=== PATIENT | female | born 1950 | race African-American/Black ===

== ENCOUNTER 2019-06-24 07:55 | Inpatient (IN) | payer MEDICARE, OTHER ==
[2019-06-24] MEDS ORDERED: SODIUM CHLORIDE 0.9% 500 ML 500 ML IV ONE (09:21)
[2019-06-24] MEDS ORDERED: ASPIRIN 325 MG TAB ONE (09:27)
[2019-06-24] MEDS ORDERED: fentaNYL (PF) 50 MCG/ML 2 ML AMP ONE (09:29)
[2019-06-24] MEDS ORDERED: fentaNYL (PF) 50 MCG/ML 2 ML AMP IVP ONE (09:34)
[2019-06-24] MEDS ORDERED: ASPIRIN 325 MG TAB PO ONE (09:34)
[2019-06-24] MEDS ORDERED: MIDAZOLAM 2 MG/2 ML VIAL IVP ONE (09:35)
[2019-06-24] MEDS: LIDOCAINE 1% INJ 10MG/ML (20 ML MDV) SQ ONE ×2 (09:36→09:46)
[2019-06-24] MEDS ORDERED: IOPAMIDOL-370 125ML BTL INJ ONE (10:00)
[2019-06-24] MEDS ORDERED: RX INFO: IV CONTRAST WAS GIVEN 1 EACH MISC MISCELLANE PRN (10:14)
[2019-06-24] MEDS ORDERED: SODIUM CHLORIDE 0.9% 1,000 ML IV SCH (10:15)
--- NOTE | 2019-06-24 11:23 | CC ---
CARDIAC CATHETERIZATION REPORT Mrs. Marquez is a 69-year-old female with known history of paroxysmal fibrillation who presents to [facility] [place] with left shoulder and arm discomfort that has some arthritic pattern. She had mild troponin elevation, a new T-wave inversion in the anterior leads. In view of that, recommendation was made regarding cardiac catheterization. The procedures, risks, and complications were discussed with the patient who is in full understanding and agreement. PROCEDURE DETAILS: Patient was brought to labor contract analyst in the fasting semi-sedated state after receiving fentanyl and Benadryl and achieving moderate conscious sedated state. Attempts to cannulate the right radial artery were unsuccessful because of severe vasospasm. At that point, using Xylocaine anesthesia and Seldinger technique, a 6-Gibraltarian sheath was introduced in the right femoral artery. Selective right and left coronary angiography performed using 6-Gibraltarian 4 bend right and left James catheter. Multiple views of the coronary arteries including hemiaxial views were obtained. Following that, a 6-Gibraltarian tight pigtail catheter was introduced into the left ventricle and a 30-degree PETE view of the left ventricle was obtained. Following that, catheter and sheath were removed. Hemostasis was obtained with deployment of Angio-Seal. There were no immediate complications. Patient is returned to her room in stable condition. FINDINGS: LEFT MAIN: This is a large-sized vessel trifurcating into the left circumflex, left anterior descending artery and ramus intermedius. Left main coronary artery has no evidence of coronary disease. LEFT ANTERIOR DESCENDING ARTERY: This is a large-sized vessel reaching towards the apex with a wraparound the apex segment giving rise to a diagonal branch in the mid segment of moderate caliber. The left anterior descending artery at the takeoff of the diagonal branch has 10-20% plaque. The rest of the vessel has no high-grade stenosis. LEFT CIRCUMFLEX: This is a nondominant vessel giving rise to 2 obtuse marginal branches. After the takeoff of the first obtuse marginal branch, there is a 10% to 20% plaque without any evidence of high-grade stenosis. RAMUS INTERMEDIUS: This is a large-sized vessel reaching to the apical lateral wall. The ramus intermedius has no evidence of high-grade stenosis. RIGHT CORONARY ARTERY: This is a dominant vessel giving rise to a right PDA. The right coronary artery proximally has 10% to 20% plaque. The rest of the vessel has no high- grade stenosis. LEFT VENTRICULOGRAM: Left ventriculogram was performed in 30-degree PETE view and revealed normal left ventricular size. There was no clear segmental wall motion abnormality. The ejection fraction was estimated at 50-55 percent. HEMODYNAMICS: There was no gradient across the aortic valve. The left ventricular end-diastolic pressure was 12 mmHg. CONCLUSION: 1. Mild triple vessel coronary disease. 2. Preserved systolic function. RECOMMENDATION: In view of findings and anatomy, I recommend continued medical therapy with aggressive coronary risk modifications that have been initiated. The patient did have ruptured plaque or are a type 2 myocardial infarction. At this time, I will maximize her medical therapy and depending her progress, further recommendations will be made. Duration of procedure: 24 minutes MMALANNAL / IJN: [id number] /
[2019-06-24 11:40] LABS: Glucose,Whole Blood 146 mg/dL (75-99)
[2019-06-24 16:50] LABS: Glucose,Whole Blood 174 mg/dL (75-99)
[2019-06-24] MEDS ORDERED: NITROGLYCERIN SL TABS 0.4 MG TAB SUBLINGUAL PRN (17:34)
[2019-06-24] MEDS: HYDROcodone/APAP 5-325MG 1 EACH TAB PO PRN (18:26)
[2019-06-24 20:01] LABS: Glucose,Whole Blood 203 mg/dL (75-99)
[2019-06-24] MEDS: azaTHIOprine 50 MG TAB PO SCH (21:36)
[2019-06-24] MEDS: traZODone HCL 50 MG TAB PO SCH (21:36)
[2019-06-24] MEDS: hydrALAZINE HCL 25 MG TAB PO SCH (21:37)
[2019-06-24] MEDS: METOPROLOL TARTRATE 25 MG TAB PO SCH (21:37)
[2019-06-24] MEDS: LISINOPRIL 5 MG TAB PO SCH (21:37)
[2019-06-25] MEDS: HYDROcodone/APAP 5-325MG 1 EACH TAB PO PRN ×2 (02:55→17:40)
[2019-06-25 06:00] LABS: Glucose,Whole Blood 188 mg/dL (75-99)
[2019-06-25 06:30] LABS: African American GFR (CKD) >90 (>60 ml/min/1.73 sqM); Anion Gap 3 mmol/L; Blood Urea Nitrogen 21 mg/dL (7-17); Calcium 9.5 mg/dL (8.4-10.2); Carbon Dioxide 30 mmol/L (22-30); Chloride 106 mmol/L (98-107); Glucose 175 mg/dL (74-99); Non-African American GFR(CKD) 90 (>60 ml/min/1.73 sqM); Potassium 4.2 mmol/L (3.5-5.1); Sodium 139 mmol/L (137-145)
[2019-06-25] MEDS ORDERED: METHOTREXATE SODIUM 2.5 MG TAB PO SCH (09:00)
--- NOTE | 2019-06-25 09:49 | ECHOF ---
Referral Reason:cp MEASUREMENTS -------- HEIGHT: 165.1 cm WEIGHT: 99.8 kg BP: 156/70 IVSd: 1.6 cm (0.6 - 1.1) LVIDd: 4.0 cm (3.9 - 5.3) LVPWd: 2.0 cm (0.6 - 1.1) IVSs: 1.7 cm LVIDs: 3.7 cm LVPWs: 1.3 cm Ao Diam: 3.0 cm (2.0 - 3.7) AV Cusp: 1.5 cm (1.5 - 2.6) LA Diam: 3.8 cm (2.7 - 3.8) MV EXCURSION: 12.495 mm (> 18.000) MV EF SLOPE: 62 mm/s (70 - 150) EPSS: 0.4 cm MV E Bradford: 0.63 m/s MV DecT: 176 ms MV A Bradford: 0.63 m/s MV E/A Ratio: 1.00 FINDINGS -------- Sinus rhythm. This was a technically adequate study. The left ventricular size is normal. There is moderate concentric left ventricular hypertrophy. O verall left ventricular systolic function is low-normal with, an EF between 50 - 55 %. The right ventricle is normal in size. The left atrial size is normal. The right atrial size is normal. The aortic valve is trileaflet, and appears structurally normal. No aortic stenosis or regurgitation. Mild mitral annular calcification present. Mild mitral regurgitation is present. Mild tricuspid regurgitation present. Right ventricular systolic pressure is normal at < 35 mmHg. There is no evidence of pulmonary hypertension. There is no pulmonic regurgitation present. The aortic root size is normal. There is no pericardial effusion. CONCLUSIONS -------- 1. Sinus rhythm. 2. This was a technically adequate study. 3. The left ventricular size is normal. 4. There is moderate concentric left ventricular hypertrophy. 5. Overall left ventricular systolic function is low-normal with, an EF between 50 - 55 %. 6. The right ventricle is normal in size. 7. The left atrial size is normal. 8. The right atrial size is normal. 9. The aortic valve is trileaflet, and appears structurally normal. No aortic stenosis or regurgitati on. 10. Mild mitral annular calcification present. 11. Mild mitral regurgitation is present. 12. Mild tricuspid regurgitation present. 13. Right ventricular systolic pressure is normal at < 35 mmHg. 14. There is no evidence of pulmonary hypertension. 15. There is no pulmonic regurgitation present. 16. The aortic root size is normal. 17. There is no pericardial effusion. PANELBOARD ASSEMBLER: Danae Hdz RDCS
[2019-06-25] MEDS: ASPIRIN 81 MG PO SCH (09:55)
[2019-06-25] MEDS: amLODIPine 5 MG TAB PO SCH (09:55)
[2019-06-25] MEDS: ATORVASTATIN 40 MG TAB PO SCH (09:55)
[2019-06-25] MEDS: ESCITALOPRAM 10 MG TAB PO SCH (09:56)
[2019-06-25] MEDS: FOLIC ACID 1 MG TAB PO SCH (09:56)
[2019-06-25] MEDS: hydrALAZINE HCL 25 MG TAB PO SCH ×3 (09:56→20:38)
[2019-06-25] MEDS: CHOLECALCIFEROL 1,000 UNIT TAB PO SCH (09:56)
[2019-06-25] MEDS: LISINOPRIL 5 MG TAB PO SCH ×2 (09:56→23:04)
[2019-06-25] MEDS: METOPROLOL TARTRATE 25 MG TAB PO SCH ×2 (09:57→20:39)
[2019-06-25] MEDS: azaTHIOprine 50 MG TAB PO SCH ×3 (09:58→20:41)
[2019-06-25 10:28] LABS: INR 0.9 (<1.2); Prothrombin Time 9.8 sec (9.0-12.0)
[2019-06-25 11:59] LABS: Glucose,Whole Blood 169 mg/dL (75-99)
[2019-06-25] MEDS ORDERED: ISOSORBIDE MONONITRATE ER 30 MG TAB.ER.24H PO STA (12:38)
--- NOTE | 2019-06-25 12:54 | P.HPIM ---
History of Present Illness This is a pleasant 69 years old -Americanfemale with past medical history of atrial fibrillation, diabetes mellitus, GERD, hypertension and rheumatoid arthritis She presents yesterday to [facility] with chest pain, mainly on the left side and left arm associated with dyspnea that is been going on for 2 years on and off, Also the patient fell about 4-5 days ago patient already underwent coronary angiogram by cardiology team showing mild triple vessel coronary artery disease, with medical management recommended, No much dyspnea, no coughing. however she still complaining from pain in her left neck radiating to the left shoulder and upper arm, however patient is able to raise her arm above her head, her complaint happened since she fell about 4-5 days ago Also patient complaining of from weakness and numbness in her right hand for about a month. Patient states she could not feel her warfarin and she was not taking it because she lost the pelvis and the airport. Patient was instructed about the im portance of compliance, warfarin was restarted At [facility] her BMP was unremarkable, glucose 181, troponin is elevated at 0.1 and 0.08, CBC is unremarkable. D-dimer markedly elevated at 521, INR 0.9 CTA of the chest showing no pulmonary embolism, mild reticular nodular infiltrate is nonspecific this is probably relates to pulmonary fibrosis by radiologist. Chest x-ray cardiomegaly and atelectasis. And patient was transferred to my Hospital to Do Cardiac Cath 69-year-old female who presents here mostly with neck pain and left arm pain for a few days. The patient said that she fell 3 to 4 days ago. She does have history of degenerative joint disease with neck pain and she also has rheumatoid arthritis. Also complaining of difficulty breathing intermittently for the past 2 years. She is on Coumadin due to atrial fibrillation. The patient already takes Lorcet and tramadol for her neck and lower back pain. The patient recently came here to visit from [place] in the first week of June. Her difficulty breathing is worse with exertion. Review of Systems CONSTITUTIONAL: No fever, no malaise, no fatigue. HEENT: No recent visual problems or hearing problems. Denied any sore throat. CARDIOVASCULAR: No orthopnea, PND, no palpitations, no syncope. PULMONARY: No shortness of breath, no cough, no hemoptysis. GASTROINTESTINAL: No diarrhea, no nausea, no vomiting, no abdominal pain. Normoactive bowel sounds. NEUROLOGICAL: No headaches, no weakness, no numbness. HEMATOLOGICAL: Denies any bleeding or petechiae. GENITOURINARY: Denies any burning micturition, frequency, or urgency. MUSCULOSKELETAL/RHEUMATOLOGICAL: Denies any joint pain, swelling, or any muscle pain. ENDOCRINE: Denies any polyuria or polydipsia. Past Medical History Past Medical History: Atrial Fibrillation, Diabetes Mellitus, GERD/Reflux, Hypertension, Rheumatoid Arthritis (RA) History of Any Multi-Drug Resistant Organisms: None Reported Past Surgical History: Cholecystectomy, Orthopedic Surgery Additional Past Surgical History / Comment(s): removed bone in left foot. Past Psychological History: Anxiety Smoking Status: Former smoker - Past Family History Father History Unknown: Yes Medications and Allergies Home Medications Medication Instructions Recorded Confirmed Type Cholecalciferol [Vitamin D3 (25 1,000 unit PO DAILY 06/24/19 06/24/19 History Mcg = 1000 Iu)] Escitalopram Oxalate [Lexapro] 10 mg PO DAILY 06/24/19 06/24/19 History Folic Acid 1 mg PO DAILY 06/24/19 06/24/19 History HYDROcodone/APAP 5-325MG [[place] 1 tab PO DAILY PRN 06/24/19 06/24/19 History 5-325] Methotrexate Sodium [Methotrexate] 20 mg PO MO 06/24/19 06/24/19 History Metoprolol Tartrate [Lopressor] 12.5 mg PO DAILY 06/24/19 06/24/19 History Nitroglycerin Sl Tabs [Nitrostat] 0.4 mg PO Q5M PRN 06/24/19 06/24/19 History Omeprazole 20 mg PO DAILY 06/24/19 06/24/19 History Warfarin Sodium [Coumadin] 6 mg PO DAILY 06/24/19 06/24/19 History Warfarin [Coumadin] 2 mg PO WEFR 06/24/19 06/24/19 History amLODIPine [Norvasc] 5 mg PO DAILY 06/24/19 06/24/19 History azaTHIOprine [Imuran] 50 mg PO TID 06/24/19 06/24/19 History hydrALAZINE HCL [Apresoline] 25 mg PO TID 06/24/19 06/24/19 History metFORMIN HCL [Glucophage] 500 mg PO BID 06/24/19 06/24/19 History traZODone HCL 50 mg PO HS 06/24/19 06/24/19 History Allergies Allergy/AdvReac Type Severity Reaction Status Date / Time No Known Allergies Allergy Verified 06/24/19 12:34 Physical Exam Vitals: Vital Signs Temp Pulse Resp BP Pulse Ox 06/25/19 08:40 98.3 F 58 L 16 134/70 98 06/25/19 04:00 98.2 F 57 L 18 156/70 97 06/25/19 00:00 98.4 F 71 18 167/105 92 L 06/24/19 19:53 98.7 F 99 18 179/77 99 06/24/19 15:17 96.5 F L 68 16 132/72 96 06/24/19 13:59 57 L 16 148/65 97 06/24/19 12:59 98.2 F 61 16 134/60 98 06/24/19 11:51 54 L 16 151/68 100 06/24/19 11:29 57 L 16 167/79 100 06/24/19 10:58 51 L 16 166/82 100 06/24/19 10:44 51 L 16 176/80 100 06/24/19 10:32 97.5 F L 56 L 16 179/77 100 Intake and Output 06/24/19 06/25/19 06/25/19 22:59 06:59 14:59 Intake Total 940 240 Balance 940 240 Intake: Intake, IV Titration 700 Amount Sodium Chloride 0.9% 1, 700 000 ml @ 100 mls/hr IV . Q10H [facility] Rx#:[id number] Oral 240 240 Other: # Voids 3 3 1 # Bowel Movements 1 Weight 101 kg GENERAL: The patient is alert and oriented x3, not in any acute distress. Well developed, well nourished. HEENT: Pupils are round and equally reacting to light. EOMI. No scleral icterus. No conjunctival pallor. Normocephalic, atraumatic. No pharyngeal erythema. No thyromegaly. CARDIOVASCULAR: S1 and S2 present. No murmurs, rubs, or gallops. PULMONARY: Chest is clear to auscultation, no wheezing or crackles. ABDOMEN: Soft, nontender, nondistended, normoactive bowel sounds. No palpable organomegaly. MUSCULOSKELETAL: No joint swelling or deformity. EXTREMITIES: No cyanosis, clubbing, or pedal edema. NEUROLOGICAL: Gross neurological examination did not reveal any focal deficits. SKIN: No rashes. No petechiae Results CBC & Chem 7: 06/25/19 06:05 Labs: Abnormal Lab Results - Last 24 Hours (Table) 06/24/19 06/24/19 06/24/19 Range/Units 11:12 16:45 19:58 BUN (7-17) mg/dL Glucose (74-99) mg/dL POC Glucose (mg/dL) 146 H 174 H 203 H (75-99) mg/dL 06/25/19 06/25/19 Range/Units 05:58 06:05 BUN 21 H (7-17) mg/dL Glucose 175 H (74-99) mg/dL POC Glucose (mg/dL) 188 H (75-99) mg/dL Thrombosis Risk Factor Assmnt - Choose All That Apply Any of the Below Risk Factors Present?: Yes Each Factor Represents 1 point: Obesity (BMI >25) Other Risk Factors: Yes Each Risk Factor Represents 2 Points: Age 61-74 years Thrombosis Risk Factor Assessment Total Risk Factor Score: 3 Thrombosis Risk Factor Assessment Level: Moderate Risk Assessment and Plan Assessment: right hand weakness and numbness x one month, associated with left shoulder/arm and neck pain from fall 4-5 days ago Chest pain, left cardiac cath showing mild coronary artery disease and recommended medical management Fall Atrial fibrillation on Coumadin subtherapeutic INR due to non-adherence to therapy Elevated d-dimer with negative CTA of the chest for PE Diabetes mellitus Hypertension Rheumatoid arthritis GERD Plan: This is a pleasant 69 years old female who presents with chest pain and fall. Cardiac cath showing minimal coronary artery disease and recommended medical management by boat canvas maker installer. We'll ask for physical therapy evaluation. We'll call neuro consult for her left neck/shoulder pain and right hand weakness and numbness. Crystalloid warfarin, and social worker masters evaluation for help. Patient was instructed the need for follow-up as an outpatient and contact information for Dr. Pierson and [facility] provided for her Labs and medication were reviewed.. Continue same treatment. Continue with symptomatic treatment. Resume home medication. Monitor lytes and vitals. DVT and GI prophylaxis. Further recommendations of the clinical course of the p atient DVT prophylaxis: On Coumadin, continue with subcu heparin till INR is therapeutic 2-3 GI Prophylaxis: Pepcid PT/OT: Pending Prognosis is guarded
--- NOTE | 2019-06-25 15:23 | P.CNNES ---
History of Present Illness Consult date: 06/25/19 Requesting physician: Fernando E Sheet Reason for Consult: Neck pain and left shoulder pain, right hand numbness and weakness History of Present Illness: Patient is a 69-year-old female, who came to the hospital because pain in her left side of her jaw to the elbow. It was quite severe pain. It involves the left lower jaw, left side of the neck, left shoulder, left upper arm to the elbow. This has been going on for almost a week. Patient states that she came to the [facility] and was diagnosed with a mild heart attack. Patient was transferred to [facility] for angiography. She underwent cardiac catheterization yesterday, which revealed mild triple vessel disease. Preserved systolic function. It was recommended to continue medical management with aggressive coronary risk factor modification. patient did have a ruptured plaque or a type II myocardial infarction. Patient continues to have pain on the left side, as described above. She also believes that her right arm is weak, which she thinks is from her rheumatoid arthritis. Her right ingot header is weak and has significant pain and swelling in the right wrist. Patient denies any slurred speech facial droop problem with the vision or dysphagia. Patient underwent 2-D echo showed moderate concentric LVH, EF 50-55%. Left atrial size is normal. Patient has history of rheumatoid arthritis for the last 5 years. She has diabetes for 10 years, hypertension for 12 years. She smoked 1 pack per day for 20 years, quit 10 years ago. Patient also has atrial fibrillation and is on Coumadin. Patient says that she was not taking any antiplatelet medication at home but now she she has been started on aspirin. Patient also on Lipitor 40 mg. Patient has history of left Askew's palsy 2009 or 2009. Patient states that she has history of a stroke affecting left side, in 2008 and 2011. Patient's INR is 0.9 as of today. Her electrolytes are normal, renal functions normal. Calcium 9.5. Patient had CTA of the chest at [facility] which was negative for PE. Chest x-ray showed cardiomegaly. Mild subsegmental atelectasis in the right middle lobe. 80 of the cervical spine showed there are some spondylotic changes in the lower cervical spine no fracture. Patient's troponin mildly elevated 0.085. Chem-7 normal, PTT 33.4, CBC normal. UA negative. D-dimer 521/500. Chem-7 normal. Magnesium 1.7 to normal. INR was 0.93 at [facility]. Review of Systems As above in detail. Denies chest pain itself. Denies nausea vomiting diarrhea, or pain. Patient does have neck pain. Past Medical History Past Medical History: Atrial Fibrillation, Diabetes Mellitus, GERD/Reflux, Hypertension, Rheumatoid Arthritis (RA) History of Any Multi-Drug Resistant Organisms: None Reported Past Surgical History: Cholecystectomy, Orthopedic Surgery Additional Past Surgical History / Comment(s): removed bone in left foot. Past Psychological History: Anxiety Smoking Status: Former smoker - Past Family History Father History Unknown: Yes Medications and Allergies Home Medications Medication Instructions Recorded Confirmed Type Cholecalciferol [Vitamin D3 (25 1,000 unit PO DAILY 06/24/19 06/24/19 History Mcg = 1000 Iu)] Escitalopram Oxalate [Lexapro] 10 mg PO DAILY 06/24/19 06/24/19 History Folic Acid 1 mg PO DAILY 06/24/19 06/24/19 History HYDROcodone/APAP 5-325MG [[place] 1 tab PO DAILY PRN 06/24/19 06/24/19 History 5-325] Methotrexate Sodium [Methotrexate] 20 mg PO MO 06/24/19 06/24/19 History Metoprolol Tartrate [Lopressor] 12.5 mg PO DAILY 06/24/19 06/24/19 History Nitroglycerin Sl Tabs [Nitrostat] 0.4 mg PO Q5M PRN 06/24/19 06/24/19 History Omeprazole 20 mg PO DAILY 06/24/19 06/24/19 History Warfarin Sodium [Coumadin] 6 mg PO DAILY 06/24/19 06/24/19 History Warfarin [Coumadin] 2 mg PO WEFR 06/24/19 06/24/19 History amLODIPine [Norvasc] 5 mg PO DAILY 06/24/19 06/24/19 History azaTHIOprine [Imuran] 50 mg PO TID 06/24/19 06/24/19 History hydrALAZINE HCL [Apresoline] 25 mg PO TID 06/24/19 06/24/19 History metFORMIN HCL [Glucophage] 500 mg PO BID 06/24/19 06/24/19 History traZODone HCL 50 mg PO HS 06/24/19 06/24/19 History Allergies Allergy/AdvReac Type Severity Reaction Status Date / Time No Known Allergies Allergy Verified 06/24/19 12:34 Physical Examination - Vital Signs Vital Signs: Vital Signs Temp Pulse Resp BP Pulse Ox 06/25/19 12:15 57 L 16 143/63 96 06/25/19 08:40 98.3 F 58 L 16 134/70 98 06/25/19 04:00 98.2 F 57 L 18 156/70 97 06/25/19 00:00 98.4 F 71 18 167/105 92 L 06/24/19 19:53 98.7 F 99 18 179/77 99 06/24/19 15:17 96.5 F L 68 16 132/72 96 Intake and Output 06/24/19 06/25/19 06/25/19 22:59 06:59 14:59 Intake Total 940 480 Balance 940 480 Intake: Intake, IV Titration 700 Amount Sodium Chloride 0.9% 1, 700 000 ml @ 100 mls/hr IV . Q10H [facility] Rx#:[id number] Oral 240 480 Other: # Voids 3 3 1 # Bowel Movements 1 Weight 101 kg On examination patient is an elderly affirmative female, very pleasant in no acute distress. Patient is alert awake, oriented to time place and person. Speech and language functions are normal. Attention and concentration and fund of knowledge is adequate. Cranial nerves her pupils are round and reactive to light, visual nielson are full on confrontation, extraocular muscles are intact with no nystagmus. Face has left sided weakness peripheral type from previous history of Askew's palsy. Tongue protrudes the midline. Palatal elevation and sensation normal. On muscle strength testing, there is no pronator drift. The strength appears normal in the arms and legs, except right ingot header, which is weak 5-as compared to normal on the left. She does have significant swelling of the right wrist from rheumatoid arthritis. Strength of hips knees and ankles are normal bilaterally. Reflexes are diminished and plantars downgoing. Sensory touch is slightly decreased in the left as compared to the right. No ataxia for [id number] testing. Tone and bulk of muscles normal. No obvious carotid bruit S1 and S2 audible. Patient has mild peripheral edema. Results - Laboratory Findings CBC and BMP: 06/25/19 06:05 Abnormal Lab Findings: Abnormal Labs 06/24/19 06/24/19 06/24/19 11:12 16:45 19:58 BUN Glucose POC Glucose (mg/dL) 146 H 174 H 203 H 06/25/19 06/25/19 06/25/19 05:58 06:05 11:32 BUN 21 H Glucose 175 H POC Glucose (mg/dL) 188 H 169 H Assessment and Plan Assessment: * 69-year-old female with history of diabetes, rheumatoid arthritis, admitted for one week history of left sided jaw pain, left-sided neck, shoulder and the left upper arm pain to the elbow. Examination is relatively normal. Rule out cervical radiculopathy. Patient is status post cardiac catheterization, showing mild triple vessel disease. * Diabetes * Hypertension * History of atrial fibrillation on warfarin. * Rheumatoid arthritis * X tobacco use * Obesity Plan: * Patient has history of atrial fibrillation, but her INR is subtherapeutic. I would suggest optimizing INR to 2.0 -3.0. May consider bridging with IV hepar in or Lovenox until INR becomes therapeutic. * We will check carotid Doppler to rule out stenosis. * MRI of brain and cervical spine * Hemoglobin A1c, fasting lipid panel, rheumatoid factor, CCP, ESR, DARRELL. * Neurology will follow.
[2019-06-25] MEDS ORDERED: LORazepam 2 MG/ML INJ IV STA (15:38)
--- NOTE | 2019-06-25 16:12 | US ---
EXAMINATION TYPE: US carotid duplex BILAT DATE OF EXAM: 06/25/2019 COMPARISON: NONE CLINICAL HISTORY: Right arm weakness, rule out CVA.. EXAM MEASUREMENTS: RIGHT: Peak Systolic Velocity (PSV) cm/sec ----- Right CCA: 66.4 ----- Right ICA: 114.5 ----- Right ECA: 66.1 ICA/CCA ratio: 1.7 RIGHT: End Diastole cm/sec ----- Right CCA: 16.8 ----- Right ICA: 32.1 ----- Right ECA: 9.5 LEFT: Peak Systolic Velocity (PSV) cm/sec ----- Left CCA: 102.3 ----- Left ICA: 176.3 ----- Left ECA: 131.8 ICA/CCA ratio: 1.7 LEFT: End Diastole cm/sec ----- Left CCA: 15.6 ----- Left ICA: 43.9 ----- Left ECA: 7.7 VERTEBRALS (direction of flow): Right Vertebral: Antegrade Left Vertebral: Antegrade Rhythm: Arrhythmia Severe amount of soft appearing plaque visualized bilaterally. Elevated velocities left distal ICA an d left ECA IMPRESSION: 1. 50-69% stenosis within the left internal carotid artery and external carotid artery. 2. No hemodynamically significant stenosis seen within the right common carotid, internal carotid or external carotid artery. 3. Incidentally noted cardiac arrhythmia. Correlate with EKG. Criteria for Assigning % of Stenosis / Diameter reduction (Estimation based on the indirect measurements of the internal carotid artery velocities (ICA PSV). 1. Normal (no stenosis)=ICA PSV < 125 cm/s: ratio < 2.0: ICA EDV<40 cm/s. 2. Less than 50% stenosis=ICA PSV < 125 cm/s: ratio < 2.0: ICA EDV<40 cm/s. 3. 50 to 69% stenosis=ICA PSV of 125 to 230 cm/s: ration 2.0 ? 4.0: ICA EDV 40-100 cm/s. 4. Greater than 70% stenosis to near occlusion= ICA PSV > 230 cm/s: ratio > 4.0: ICA EDV > 100 cm/s. 5. Near occlusion= ICA PSV velocities may be low or undetectable: variable ratio and ICA EDV. 6. Total occlusion=unable to detect flow.
--- NOTE | 2019-06-25 17:24 | MR ---
EXAMINATION TYPE: MR brain/cspine wo DATE OF EXAM: 06/25/2019 COMPARISON: NONE HISTORY: Right arm weakness, left-sided neck pain TECHNIQUE: Multiplanar, multisequence imaging of the brain and brainstem along the cervical spine are all performed without IV contrast. FINDINGS: BRAIN: Exam is suboptimal as there is motion artifact degradation. Diffusion weighted images demonstr ate tiny 3 x 2 mm ovoid focus high right frontal subcortical region image 200 series 305 of increased signal diffusion weighted images with diminished signal ADC mapping less well seen on T2 and T1 weig hted images could reflect tiny lacunar subcortical infarct. There is no worrisome extra-axial fluid collection. Ventricular and sulcal prominence is identified. Focal and confluent areas of T2 hyperintensity seen throughout the superficial deep and periventricul ar white matter. Lesions are nonspecific in appearance and distribution. There is involvement extendi ng into the bilateral temporal lobes noted. Midline structures demonstrate normal morphology. The craniocervical junction appears within normal limits. Normal vascular flow voids are present. Mild mucosal thickening involving ethmoid sinuses cecil aterally otherwise paranasal sinuses are clear. Globes are intact bilaterally. IMPRESSION: 1. Suspicion for tiny acute lacunar infarct high right frontal subcortical region. 2. Background mild diffuse cerebral atrophy with advanced nonspecific white matter changes may be on the basis of product of chronic small vessel ischemic change. Combination with other etiologies not e xcluded. C-SPINE: Suboptimal due to motion artifact degradation. FINDINGS: Sagittal images of the cervical spine show the craniocervical junction to appear within nor mal limits. The cervical and upper thoracic spinal cord is likely normal in course, caliber, and sig nal accounting for artifact related to motion. Vertebral alignment is satisfactory on sagittal image s. The vertebral body heights are normal. [id number] multilevel disc space narrowing and spur ring. The bone marrow signal intensity is within normal limits. Axial images at C2-C3 level shows some uncovertebral facet degenerative changes bilaterally causing m ild bilateral neural foraminal narrowing. Axial images at C3-C4 level are felt within normal limits. Axial images at C4-C5 level showed broad based posterior disc protrusion effacing anterior thecal sac and causing fairly advanced bilateral neural foraminal narrowing. Axial images at C5-C6 level broad-based posterior disc protrusion with right foraminal component effa cing the anterior thecal sac and causing moderate to advanced right and moderate left-sided neural fo raminal narrowing. Axial images at C6-C7 level show posterior spur disc complex effacing anterior thecal sac and causing moderate to advanced left greater than right bilateral neural foraminal narrowing. Axial images at C7-T1 level shows broad-based right paracentral/foraminal disc protrusion effacing th e anterolateral thecal sac and causing moderate to advanced right-sided neural foraminal narrowing, l eft-sided neural foramen is patent. There is 1.9 cm suspected wider greater than tall T2 hyperintense lesion left thyroid axial image 8. Nonemergent Follow-up advised IMPRESSION: Suboptimal study, multilevel degenerative changes are present as detailed above greatest at C4-C5 through the C7-T1 levels.
[2019-06-25 17:32] LABS: Glucose,Whole Blood 146 mg/dL (75-99)
[2019-06-25] MEDS ORDERED: WARFARIN 3 MG TAB PO SCH (18:00)
[2019-06-25 20:13] LABS: Glucose,Whole Blood 256 mg/dL (75-99)
[2019-06-25] MEDS: FAMOTIDINE 20 MG/2 ML VIAL IV SCH (20:38)
[2019-06-25] MEDS: traZODone HCL 50 MG TAB PO SCH (20:38)
[2019-06-25] MEDS ORDERED: ENOXAPARIN 100 MG/ML SYRINGE SQ SCH (21:00)
[2019-06-25] MEDS ORDERED: HEPARIN SODIUM,PORCINE 5,000 UNIT/ML 1 ML VIAL SQ SCH (21:00)
[2019-06-25] MEDS ORDERED: HYDROcodone/APAP 5-325MG 1 EACH TAB PO STA (21:56)
[2019-06-26 05:57] LABS: Cholesterol 142 mg/dL (<200); HDL Cholesterol 33 mg/dL (40-60); LDL Cholesterol,Calculated 93 mg/dL (0-99); Triglycerides 79 mg/dL (<150)
[2019-06-26 06:03] LABS: INR 0.9 (<1.2); Prothrombin Time 9.8 sec (9.0-12.0)
[2019-06-26 06:08] LABS: Glucose,Whole Blood 184 mg/dL (75-99)
[2019-06-26] MEDS: APIXABAN 5 MG TAB PO SCH ×2 (08:20→20:44)
[2019-06-26] MEDS: ASPIRIN 81 MG PO SCH (08:20)
[2019-06-26] MEDS: ATORVASTATIN 40 MG TAB PO SCH (08:20)
[2019-06-26] MEDS: ESCITALOPRAM 10 MG TAB PO SCH (08:20)
[2019-06-26] MEDS: hydrALAZINE HCL 25 MG TAB PO SCH ×3 (08:20→21:28)
[2019-06-26] MEDS: FAMOTIDINE 20 MG/2 ML VIAL IV SCH (08:20)
[2019-06-26] MEDS: amLODIPine 5 MG TAB PO SCH (08:21)
[2019-06-26] MEDS: FOLIC ACID 1 MG TAB PO SCH (08:21)
[2019-06-26] MEDS: HYDROcodone/APAP 5-325MG 1 EACH TAB PO PRN (08:21)
[2019-06-26] MEDS: METOPROLOL TARTRATE 25 MG TAB PO SCH ×2 (08:21→20:44)
[2019-06-26] MEDS: CHOLECALCIFEROL 1,000 UNIT TAB PO SCH (08:22)
[2019-06-26] MEDS: azaTHIOprine 50 MG TAB PO SCH ×3 (08:22→21:52)
[2019-06-26] MEDS: LISINOPRIL 5 MG TAB PO SCH ×2 (08:22→20:44)
--- NOTE | 2019-06-26 10:59 | P.PN ---
Subjective Progress Note Date: 06/25/19 Date of service 06/25/2019 This is a 69-year-old -[place] female with history of paroxysmal atrial fibrillation who initially presented to [facility] with symptoms of left shoulder and left arm discomfort, she had mild troponin abnormality, and was recommended to undergo cardiac catheterization. Subsequently the patient was transferred here underwent cardiac catheterization by Dr. Fatima which revealed mild triple-vessel coronary artery disease with preserved LV function. Patient was seen and examined this morning, had an episode of sharp stabbing chest pains. Blood pressure 135/68 with a heart rate in the 60s, 98% on room air. Objective - Vital Signs Vital signs: Vital Signs Temp 97.6 F 06/26/19 08:05 Pulse 61 06/26/19 08:05 Resp 18 06/26/19 08:05 BP 135/69 06/26/19 08:05 Pulse Ox 98 06/26/19 08:05 Intake & Output 06/25/19 06/26/19 06/26/19 18:59 06:59 18:59 Intake Total 960 240 Balance 960 240 Weight 101.5 kg Intake: Oral 960 240 Other: # Voids 2 2 2 - Exam PHYSICAL EXAMINATION: GENERAL: 69 -year-old -[place]aur[place] female in no acute distress at the time of my examination HEENT: Head is atraumatic, normocephalic. Pupils equal, round. Sclera anicteric. Conjunctiva are clear. Mucous membranes of the mouth are moist. Neck is supple. There is no elevated jugular venous pressure. No carotid bruit is heard. HEART EXAMINATION: Heart S1, S2 normal. No murmur or gallop heard. CHEST EXAMINATION: Lungs are clear to auscultation and precussion. No chest wall tenderness is noted on palpation or with deep breathing. ABDOMEN: Soft, nontender. Bowel sounds are heard. No organomegaly noted. EXTREMITIES: 2+ peripheral pulses with no evidence of peripheral edema and no calf tenderness noted. Right groin soft, no evidence of any hematoma NEUROLOGIC patient is awake, alert and oriented 3 . . - Labs CBC & Chem 7: 06/25/19 06:05 Labs: Abnormal Lab Results - Last 24 Hours (Table) 06/25/19 06/25/19 06/25/19 Range/Units 11:32 17:19 20:12 POC Glucose (mg/dL) 169 H 146 H 256 H (75-99) mg/dL HDL Cholesterol (40-60) mg/dL 06/26/19 06/26/19 Range/Units 05:11 06:06 POC Glucose (mg/dL) 184 H (75-99) mg/dL HDL Cholesterol 33 L (40-60) mg/dL Assessment and Plan Plan: Assessment and plan #1 chest pain with abnormality in troponin, CTA of the chest performed at [facility] was negative for pulmonary embolism. Cardiac catheterization was performed here which revealed mild triple-vessel coronary artery disease. Echocardiogram with Doppler study revealed an ejection fraction of 50-55%. #2 left facial, arm, and leg numbness, neurology on consultation #3 paroxysmal atrial fibrillation, patient had been on Coumadin for anticoagulation, we will initiate Eliquis 5 mg one tablet by mouth twice a day here #4 hypertension #5 diabetes #6 hyperlipidemia #7 rheumatoid arthritis #8 GERD Plan From cardiology's perspective, patient may be able to be discharged once cleared by primary. If the patient will be staying in this area, we will make a follow- up appointment in the office post discharge. Continue Norvasc 5 mg daily, Eliquis 5 mg twice a day, aspirin 81 mg daily, Lipitor 40 mg daily, hydralazine 25 mg 3 times a day, Zestril 5 mg twice a day, metoprolol 50 mg by mouth twice a day, we will add Imdur 30 mg by mouth daily to her medication regime. DNP note has been reviewed, I agree with a documented findings and plan of care. Patient was seen and examined.
[2019-06-26 11:45] LABS: Cyclic Citrull Pep IgG Unit >300.0 U/mL; Cyclic Citrullinated Pep IgG POSITIVE (NEGATIVE)
[2019-06-26 11:52] LABS: Glucose,Whole Blood 190 mg/dL (75-99)
[2019-06-26 12:15] LABS: Rheumatoid Factor, Qnt 21 IU/mL (0-15)
--- NOTE | 2019-06-26 14:15 | P.PN ---
Subjective 69-year-old admitted for left-sided neck come pain. 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 Patient is cleared for discharge but is awaiting disposition to subacute rehabilitation patient qualified for long-term facility. Constitutional: Denied any fatigue denied any fever. Cardio vascular: denied any chest pain, palpitations Gastrointestinal denied any nausea vomiting Pulmonary: Denied any shortness of breath cough Neurologic denied any new focal deficits All inpatient medications were reviewed and appropriate changes in these medications as dictated in the interval history and assessment and plan. Objective - Vital Signs Vital signs: Vital Signs Temp 97.6 F 06/26/19 08:05 Pulse 52 L 06/26/19 12:39 Resp 16 06/26/19 12:39 BP 151/67 06/26/19 12:39 Pulse Ox 97 06/26/19 12:39 Intake & Output 06/25/19 06/26/19 06/26/19 18:59 06:59 18:59 Intake Total 960 480 Balance 960 480 Weight 101.5 kg Intake: Oral 960 480 Other: # Voids 2 2 2 - Exam PHYSICAL EXAMINATION: GENERAL: The patient is alert and oriented x3, not in any acute distress. Well developed, well nourished. HEENT: Pupils are round and equally reacting to light. EOMI. No scleral icterus. No conjunctival pallor. Normocephalic, atraumatic. No pharyngeal erythema. No thyromegaly. Patient does have some stiffness in the neck CARDIOVASCULAR: S1 and S2 present. No murmurs, rubs, or gallops. PULMONARY: Chest is clear to auscultation, no wheezing or crackles. ABDOMEN: Soft, nontender, nondistended, normoactive bowel sounds. No palpable organomegaly. MUSCULOSKELETAL: No joint swelling or deformity. EXTREMITIES: No cyanosis, clubbing, or pedal edema. NEUROLOGICAL: Gross neurological examination did not reveal any focal deficits. SKIN: No rashes. - Labs CBC & Chem 7: 06/25/19 06:05 Labs: Abnormal Lab Results - Last 24 Hours (Table) 06/25/19 06/25/19 06/26/19 Range/Units 17:19 20:12 05:11 POC Glucose (mg/dL) 146 H 256 H (75-99) mg/dL HDL Cholesterol 33 L (40-60) mg/dL Rheumatoid Factor 21 H (0-15) IU/mL Cyclic Citrull Peptide (NEGATIVE) 06/26/19 06/26/19 06/26/19 Range/Units 05:11 06:06 11:50 POC Glucose (mg/dL) 184 H 190 H (75-99) mg/dL HDL Cholesterol (40-60) mg/dL Rheumatoid Factor (0-15) IU/mL Cyclic Citrull Peptide POSITIVE H (NEGATIVE) Assessment and Plan Plan: right hand weakness and numbness x one month, associated with left shoulder/arm and neck pain from fall 4-5 days ago secondary to cervical endocrinopathy and severe degenerative neck disease. Chest pain, left cardiac cath showing mild coronary artery disease and recommended medical management Fall: Generalized deconditioning and the patient will require subacute rehabilitation waiting and disposition to subacute rehab Atrial fibrillation on Coumadin subtherapeutic INR due to non-adherence to therapy for patient's Coumadin was di scontinued and patient was started on Eliquis Elevated d-dimer with negative CTA of the chest for PE Diabetes mellitus Hypertension Rheumatoid arthritis GERD
--- NOTE | 2019-06-26 14:44 | CDI ---
Documentation Clarification Form Date: 06/26/2019 01:58:59 PM From: Georgina Vallecillo RN CCDS Admit Date: 06/24/2019 09:18:00 AM Patient Name: Shanta Marquez Visit Number: [id number] Discharge Date: ATTENTION: The Clinical Documentation Specialists (CDI) and [facility] Coding Staff appreciate your assistance in clarifying documentation. Please respond to the clarification below the line at the bottom and electronically sign. The CDI & [facility] Coding staff will review the response and follow-up if needed. Please note: Queries are made part of the Legal Health Record. If you have any questions, please contact the author of this message via ITS. Dr. Jeri Fatima The patient did have ruptured plaque or are a type 2 myocardial infarction is documented in the Cardiac Cath report 06/23 Patient History/Risk Factors: 69-year-old female presents to the [facility] as a transfer from [facility] with neck pain and left arm pain for a few days with difficulty in breathing worse with exertion. Medical history of Atrial Fibrillation, DM, HTN Clinical Indicators: Troponin: Per H&P 06/24 Troponin is elevated at 0.1 and 0.08. 06/23 Heart Catheterization Conclusion Mild triple vessel coronary disease. Preserved systolic function. Treatment:06/24 Coumadin 6mg po x1, 06/25 Cardiology progress note Continue Norvasc 5mg daily, Eliquis 5mg twice a day, aspirin 81 mg daily, Lipitor 40mg daily, Hydralazine 25mg 3 times a day, Zestril 5mg twice a daily, Metoprolol 50mg 2 times a daily and will add Imdur 30mg daily. For accurate documentation please indicate the underlying etiology of the Type of AL: Type 1 AL Type 2 AL due to XXX Unable to determine Other Condition, please specify (Last Revision: April 2019) MTDD
--- NOTE | 2019-06-26 15:53 | P.PN ---
Subjective Progress Note Date: 06/26/19 Patient was seen for a follow-up. Patient continues to complain of pain in the left side of the jaw, 5/10. Also complains of pain in left side of the neck, left shoulder to the left elbow. Also has pain in the right wrist from rheumatoid arthritis. Denies any new focal symptoms. Patient denies pain while chewing or eating. It does hurt in the left angle of jaw when opening mouth real wide. Objective - Vital Signs Vital signs: Vital Signs Temp 97.6 F 06/26/19 08:05 Pulse 52 L 06/26/19 12:39 Resp 16 06/26/19 12:39 BP 151/67 06/26/19 12:39 Pulse Ox 97 06/26/19 12:39 Intake & Output 06/25/19 06/26/19 06/26/19 18:59 06:59 18:59 Intake Total 960 480 Balance 960 480 Weight 101.5 kg Intake: Oral 960 480 Other: # Voids 2 2 2 - Exam On examination patient is alert and awake in no distress. Her mental status, speech and language functions are normal. 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 She has some left hemifacial spasms. Patient is edentulous. The gums in the left upper and lower jaw appears normal. Patient is quite tender in the left parotid region although I did not appreciate any mass. Tongue protrudes the midline. Muscle strength is normal in the arms and legs. No ataxia. Tone and bulk of muscles normal. Right wrist is tender from arthritis. - Labs CBC & Chem 7: 06/25/19 06:05 Labs: Abnormal Lab Results - Last 24 Hours (Table) 06/25/19 06/25/19 06/26/19 Range/Units 17:19 20:12 05:11 POC Glucose (mg/dL) 146 H 256 H (75-99) mg/dL HDL Cholesterol 33 L (40-60) mg/dL Rheumatoid Factor 21 H (0-15) IU/mL Cyclic Citrull Peptide (NEGATIVE) 06/26/19 06/26/19 06/26/19 Range/Units 05:11 06:06 11:50 POC Glucose (mg/dL) 184 H 190 H (75-99) mg/dL HDL Cholesterol (40-60) mg/dL Rheumatoid Factor (0-15) IU/mL Cyclic Citrull Peptide POSITIVE H (NEGATIVE) Assessment and Plan Assessment: * 69-year-old female with history of diabetes, rheumatoid arthritis, admitted for one week history of left sided jaw pain, left-sided neck, shoulder and the left upper arm pain to the elbow. MRI of the cervical spine revealed significant cervical spondylosis, with possible spinal stenosis. However the study was technically poor because of motion artifact. I suspect her left shoulder and arm pain is likely from cervical radiculopathy. Left jaw pain is of unclear etiology. Possible TMJ from rheumatoid arthritis. Rule out parotid mass. * Possible acute infarct, high right frontal subcortical region (very small size). Possible embolic from atrial fibrillation. * Coronary artery disease, status post cardiac catheterization, showing mild triple vessel disease. * Diabetes * Hypertension * History of atrial fibrillation on warfarin. * Rheumatoid arthritis, on methotrexate. * X tobacco use * Obesity Plan: * Patient has history of atrial fibrillation. Patient now started on Eliquis 5 mg twice a day. * Carotid Doppler showed 50-69% stenosis within the left ICA. No hemodynamically significant stenosis seen on the right side. Consider repeating carotid Doppler in 6 months to a year for a follow-up. Recommend aggressive control of vascular risk factors. * MRI of brain revealed suspicion for tiny acute ischemic infarct high right frontal subcortical region, possible embolic. Patient started on Eliquis for secondary stroke prevention. * MRI of the cervical spine showed suboptimal study, however on my review, does revealed evidence of significant cervical spondylosis, possible at least moderate degree of spinal stenosis at C4 5 and C6 7 levels. Her left arm pain is likely from cervical radiculopathy. May need an EMG and nerve conduction study of left upper limb to evaluate for cervical radiculopathy. May consider a repeat MRI of cervical spine, as the current study is technically poor. * Regarding left jaw pain, we'll check ultrasound of the left side of the face/neck, to rule out Parotid mass. * Hemoglobin A1c pending * Fasting lipid panel showed cholesterol 142, LDL 93, HDL 33 and triglycerides 79, rheumatoid factor 21/15, CCP highly elevated >300, ESR 20, DARRELL negative. Her right arm pain and swelling is likely from rheumatoid arthritis. Patient recommended to follow up with her stereoptic projection topographer as outpatient.
[2019-06-26 16:22] LABS: Glucose,Whole Blood 201 mg/dL (75-99)
[2019-06-26 17:01] LABS: Hemoglobin A1C 7.9 % (4.0-6.0)
[2019-06-26 20:34] LABS: Glucose,Whole Blood 177 mg/dL (75-99)
[2019-06-26] MEDS: traZODone HCL 50 MG TAB PO SCH (20:44)
[2019-06-26] MEDS: FAMOTIDINE 20 MG TAB PO SCH (20:44)
[2019-06-26] MEDS ORDERED: HYDROcodone/APAP 5-325MG 1 EACH TAB PO STA (21:17)
[2019-06-27 06:42] LABS: Glucose,Whole Blood 196 mg/dL (75-99)
[2019-06-27 07:12] VITALS: BP 161/80; PULSE 60; RESP 15; TEMP 98.6
[2019-06-27] MEDS: FAMOTIDINE 20 MG TAB PO SCH (08:41)
[2019-06-27] MEDS: LISINOPRIL 5 MG TAB PO SCH (08:42)
[2019-06-27] MEDS: amLODIPine 5 MG TAB PO SCH (08:42)
[2019-06-27] MEDS: ATORVASTATIN 40 MG TAB PO SCH (08:42)
[2019-06-27] MEDS: FOLIC ACID 1 MG TAB PO SCH (08:42)
[2019-06-27] MEDS: ASPIRIN 81 MG PO SCH (08:43)
[2019-06-27] MEDS: CHOLECALCIFEROL 1,000 UNIT TAB PO SCH (08:43)
[2019-06-27] MEDS: METOPROLOL TARTRATE 25 MG TAB PO SCH (08:43)
[2019-06-27] MEDS: hydrALAZINE HCL 25 MG TAB PO SCH (08:43)
[2019-06-27] MEDS: azaTHIOprine 50 MG TAB PO SCH (08:44)
[2019-06-27] MEDS: APIXABAN 5 MG TAB PO SCH (08:44)
[2019-06-27] MEDS: ESCITALOPRAM 10 MG TAB PO SCH (08:44)
--- NOTE | 2019-06-27 10:25 | XR ---
EXAMINATION TYPE: XR chest 1V DATE OF EXAM: 06/27/2019 COMPARISON: NONE HISTORY: 69-year-old female with hypoxia TECHNIQUE: Single frontal view of the chest is obtained. FINDINGS: Heart borderline enlarged. Mild diffuse interstitial density. No jayshree consolidation or pleural effus ion. IMPRESSION: Mild diffuse interstitial density could represent bronchitis, asthma, or atypical pneumonias.
[2019-06-27 11:40] LABS: Glucose,Whole Blood 198 mg/dL (75-99)
[2019-06-27] MEDS ORDERED: CYCLOBENZAPRINE 10 MG TAB PO PRN (12:00)
--- NOTE | 2019-06-27 13:01 | P.DS ---
Providers Date of admission: 06/24/19 09:18 Expected date of discharge: 06/27/19 Attending physician: Quita Ly MD Consults: 06/25/19 12:48 Consult Physician Urgent Consulting Provider: Ramone Willson Consult Reason/Comments: neck pain and left shoulder pain, right hand numbness and weakness Do you want consulting provider notified?: Yes Primary care physician: Stated None Hospital Course: Final diagnosis right hand weakness and numbness x one month, associated with left shoulder/arm and neck pain from fall 4-5 days ago secondary to cervical radiculopathy and severe degenerative neck disease. Chest pain, left cardiac cath showing mild coronary artery disease Fall: Generalized deconditioning Atrial fibrillation subtherapeutic INR due to non-adherence to therapy Elevated d-dimer with negative CTA of the chest for PE Diabetes mellitus Hypertension Rheumatoid arthritis GERD Discharge disposition She is being discharged in a stable condition with guarded prognosis to [facility] for continued PT/OT therapy. Patient will need to follow-up outpatient with cardiology and hematology. Total time taken is 35 minutes. History of present illness This is a 69-year-old female who was recently admitted with left-sided neck pain along with some chest pain and was being closely monitored. Neurology and cardiology following the patient. During hospitalization patient underwent cardiac catheterization showing mild triple-vessel coronary disease with preserved systolic function and will continue with maximum medical management at this time. Patient also underwent an echo with an EF between 50 and 55%. Patient had a carotid Doppler study done showing left internal carotid artery and external carotid artery showing 50-69% stenosis with no significant stenosis noted on the right side. Patient will follow-up with cardiology in the outpatient setting as mentioned previously. Patient underwent MRI of the brain which did not show any microinfarction or stroke. Patient has a history of severe cervical radiculopathy and the MRA of the head and neck continues to so cervical radicular neuropathy. Patient continues to have weakness and is requir ing rehab in the outpatient setting. Currently no reports of chest pain, shortness of breath, or palpitations. Patient is afebrile. No reports of nausea or vomiting and patient is tolerating diet. Patient will be transferred to [facility] today for continued PT/OT therapy. On exam vital signs are stable. Temp is 98.6F, pulse is 60, respirations are 15, blood pressure is 161/80, oxygen saturation is 91-94% on room air. Cardio S1, S2 are present. Respiratory system shows diminished breath sounds at the bases with no wheezing or rhonchi noted. Abdomen is soft and nontender. Ne rvous system shows mild diffuse weakness. Please refer to medication reconciliation sheet for a list of medications. Patient Condition at Discharge: Stable Plan - Discharge Summary Discharge Rx Participant: Yes New Discharge Prescriptions: New Aspirin 81 mg PO DAILY chew traZODone HCL [Desyrel] 50 mg PO HS #2 tab Apixaban [Eliquis] 5 mg PO BID #0 tab Cyclobenzaprine [Flexeril] 10 mg PO BID PRN #4 tab PRN Reason: Muscle Spasm Atorvastatin [Lipitor] 40 mg PO DAILY tab Metoprolol Tartrate [Lopressor] 25 mg PO BID tab Famotidine [Pepcid] 20 mg PO Q12HR tab Lisinopril [Zestril] 5 mg PO BID tab Continue Methotrexate Sodium [Methotrexate] 20 mg PO MO metFORMIN HCL [Glucophage] 500 mg PO BID hydrALAZINE HCL [Apresoline] 25 mg PO TID Folic Acid 1 mg PO DAILY Escitalopram Oxalate [Lexapro] 10 mg PO DAILY Cholecalciferol [Vitamin D3 (25 Mcg = 1000 Iu)] 1,000 unit PO DAILY amLODIPine [Norvasc] 5 mg PO DAILY Nitroglycerin Sl Tabs [Nitrostat] 0.4 mg PO Q5M PRN PRN Reason: Chest Pain azaTHIOprine [Imuran] 50 mg PO TID Changed HYDROcodone/APAP 5-325MG [[place] 5-325] 1 tab PO BID #4 tab Discontinued Warfarin [Coumadin] 2 mg PO WEFR Omeprazole 20 mg PO DAILY traZODone HCL 50 mg PO HS Metoprolol Tartrate [Lopressor] 12.5 mg PO DAILY Warfarin Sodium [Coumadin] 6 mg PO DAILY Discharge Medication List Cholecalciferol [Vitamin D3 (25 Mcg = 1000 Iu)] 1,000 unit PO DAILY 06/24/19 [History] Escitalopram Oxalate [Lexapro] 10 mg PO DAILY 06/24/19 [History] Folic Acid 1 mg PO DAILY 06/24/19 [History] Methotrexate Sodium [Methotrexate] 20 mg PO MO 06/24/19 [History] Nitroglycerin Sl Tabs [Nitrostat] 0.4 mg PO Q5M PRN 06/24/19 [History] amLODIPine [Norvasc] 5 mg PO DAILY 06/24/19 [History] azaTHIOprine [Imuran] 50 mg PO TID 06/24/19 [History] hydrALAZINE HCL [Apresoline] 25 mg PO TID 06/24/19 [History] metFORMIN HCL [Glucophage] 500 mg PO BID 06/24/19 [History] Apixaban [Eliquis] 5 mg PO BID #0 tab 06/27/19 [Rx] Aspirin 81 mg PO DAILY chew 06/27/19 [Rx] Atorvastatin [Lipitor] 40 mg PO DAILY tab 06/27/19 [Rx] Cyclobenzaprine [Flexeril] 10 mg PO BID PRN #4 tab 06/27/19 [Rx] Famotidine [Pepcid] 20 mg PO Q12HR tab 06/27/19 [Rx] HYDROcodone/APAP 5-325MG [[place] 5-325] 1 tab PO BID #4 tab 06/27/19 [Rx] Lisinopril [Zestril] 5 mg PO BID tab 06/27/19 [Rx] Metoprolol Tartrate [Lopressor] 25 mg PO BID tab 06/27/19 [Rx] traZODone HCL [Desyrel] 50 mg PO HS #2 tab 06/27/19 [Rx] Follow up Appointment(s)/Referral(s): Jeri Fatima MD [STAFF PHYSICIAN] - 07/03/19 3:30 pm (Tuesday) Cathleen Cerna MD [STAFF PHYSICIAN] - [facility] [employer] [place], [NON-STAFF] - 1-2 Days Activity/Diet/Wound Care/Special Instructions: Patient is going to [facility] [employer] [place] Activity as tolerated Continue current diet Follow-up with cardiology in the outpatient setting Discharge Disposition: TRANSFER TO SNF/ECF
--- NOTE | 2019-06-27 14:20 | P.PN ---
Subjective Progress Note Date: 06/27/19 Patient was seen for a follow-up. Patient states she is feeling better. She is fully dressed, walking, stating that is going to rehab facility. Continues to complains of pain in left side of the neck, left shoulder to the left elbow. Also has pain in the right wrist from rheumatoid arthritis. Denies any new focal symptoms. Patient denies pain while chewing or eating. It does hurt in the left angle of jaw when opening mouth real wide. Objective - Vital Signs Vital signs: Vital Signs Temp 98.6 F 06/27/19 07:00 Pulse 60 06/27/19 07:00 Resp 15 06/27/19 07:00 BP 161/80 06/27/19 07:00 Pulse Ox 91 L 06/27/19 07:00 Intake & Output 06/26/19 06/27/19 06/27/19 18:59 06:59 18:59 Intake Total 480 480 Balance 480 480 Weight 100.8 kg Intake: Oral 480 480 Other: # Voids 2 1 # Bowel Movements 1 - Exam On examination patient is alert and awake in no distress. Her mental status, speech and language functions are normal. 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 She has some left hemifacial spasms. Patient is edentulous. The gums in the left upper and lower jaw appears normal. Patient is quite tender in the left parotid region although I did not appreciate any mass. Tongue protrudes the midline. Muscle strength is normal in the arms and legs. No ataxia. Tone and bulk of muscles normal. Right wrist is tender from arthritis. - Labs CBC & Chem 7: 06/25/19 06:05 Labs: Abnormal Lab Results - Last 24 Hours (Table) 06/26/19 06/26/19 06/26/19 Range/Units 05:11 16:20 20:33 POC Glucose (mg/dL) 201 H 177 H (75-99) mg/dL Hemoglobin A1c 7.9 H (4.0-6.0) % 06/27/19 06/27/19 Range/Units 06:38 11:38 POC Glucose (mg/dL) 196 H 198 H (75-99) mg/dL Hemoglobin A1c (4.0-6.0) % Assessment and Plan Assessment: * 69-year-old female with history of diabetes, rheumatoid arthritis, admitted for one week history of left sided jaw pain, left-sided neck, shoulder and the left upper arm pain to the elbow. MRI of the cervical spine revealed significant cervical spondylosis, with possible spinal stenosis. However the study was technically poor because of motion artifact. I suspect her left shoulder and arm pain is likely from cervical radiculopathy. Left jaw pain is of unclear etiology. Possible TMJ from rheumatoid arthritis. Rule out parotid mass. * Possible acute infarct, high right frontal subcortical region (very small size). Possible embolic from atrial fibrillation. * Coronary artery disease, status post cardiac catheterization, showing mild triple vessel disease. * Diabetes * Hypertension * History of atrial fibrillation on warfarin. * Rheumatoid arthritis, on methotrexate. * X tobacco use * Obesity Plan: * Patient has history of atrial fibrillation. Patient now started on Eliquis 5 mg twice a day. * Carotid Doppler showed 50-69% stenosis within the left ICA. No hemodynamicall y significant stenosis seen on the right side. Consider repeating carotid Doppler in 6 months to a year for a follow-up. Recommend aggressive control of vascular risk factors. * MRI of brain revealed suspicion for tiny acute ischemic infarct high right frontal subcortical region, possible embolic due to atrial fibrillation. Patient started on Eliquis for secondary stroke prevention. * MRI of the cervical spine showed suboptimal study, however on my review, does revealed evidence of significant cervical spondylosis, possible at least moderate degree of spinal stenosis at C4 5 and C6 7 levels. Her left arm pain is likely from cervical radiculopathy. May need an EMG and nerve conduction study of left upper limb to evaluate for cervical radiculopathy. May consider a repeat MRI of cervical spine, as the current study is technically poor. * Regarding left jaw pain, consider checking an ultrasound of the left side of the face/neck, to rule out Parotid mass. No palpable mass felt however. Possible due to TMJ from RA. * Hemoglobin A1c 7.9. Suggested to optimize control of diabetes to target A1c <7.0. * Fasting lipid panel showed cholesterol 142, LDL 93, HDL 33 and triglycerides 79, rheumatoid factor 21/15, CCP highly elevated >300, ESR 20, DARRELL negative. Her right arm pain and swelling is likely from rheumatoid arthritis. Patient recommended to follow up with her Community Health Education Coordinator as outpatient. Patient is on methotrexate.
[2019-06-27] MEDS ORDERED: WARFARIN 2 MG TAB PO SCH (18:00)
== END 2019-06-27 14:15 | DRG 287 ==
LOC: 3SCARD 09:18 → 4SSUR 06-26 18:15
PROVIDERS: ADMIT Internal Medicine; ATTEND Internal Medicine
DX: I25.10 Atherosclerotic heart disease of native coronary artery without angina pectoris (principal); J98.11 Atelectasis; J84.10 Pulmonary fibrosis, unspecified; K21.9 Gastro-esophageal reflux disease without esophagitis; M06.9 Rheumatoid arthritis, unspecified; M47.22 Other spondylosis with radiculopathy, cervical region; R79.1 Abnormal coagulation profile; E11.9 Type 2 diabetes mellitus without complications; E66.9 Obesity, unspecified; Z68.37 Body mass index [BMI] 37.0-37.9, adult; E78.5 Hyperlipidemia, unspecified; F41.9 Anxiety disorder, unspecified; I10 Essential (primary) hypertension; I48.0 Paroxysmal atrial fibrillation; M50.10 Cervical disc disorder with radiculopathy, unspecified cervical region; M48.02 Spinal stenosis, cervical region; W19.XXXA Unspecified fall, initial encounter; Z79.01 Long term (current) use of anticoagulants; Z79.84 Long term (current) use of oral hypoglycemic drugs; Z79.899 Other long term (current) drug therapy; Z86.73 Personal history of transient ischemic attack (TIA), and cerebral infarction without residual deficits; Z87.891 Personal history of nicotine dependence; M26.609 Unspecified temporomandibular joint disorder, unspecified side; I65.22 Occlusion and stenosis of left carotid artery; T45.516A Underdosing of anticoagulants, initial encounter; Z91.128 Patient's intentional underdosing of medication regimen for other reason
CPT/HCPCS: 70551; 71045; 72141; 80048; 80061; 83036; 85610; 85652; 86038; 86200; 86431; 93306; 93458; 93880

== ENCOUNTER 2020-08-07 11:39 | Inpatient (IN) | payer MEDICARE, OTHER ==
[2020-08-07] MEDS ORDERED: ALBUTEROL HFA INHALER INHALATION STA (12:34)
--- NOTE | 2020-08-07 12:37 | ED ---
General Adult HPI - General Chief complaint: Shortness of Breath Stated complaint: Dyspnea Time Seen by Provider: 08/07/20 12:16 Source: patient, EMS, RN notes reviewed Mode of arrival: EMS Limitations: no limitations - History of Present Illness Initial comments: Patient is a pleasant 70-year-old female presenting to the emergency Department with complaints of difficulty breathing. Patient states her doctor recommended she come to the emergency Department. Symptoms have been present for 7-10 days. No cough. Patient does have some discomfort of her left upper shoulder/neck region. Discomfort is difficult to describe and mild. Discomfort does not worsen with arm movement. No chest pain. No back pain. Patient does have history of congestive heart failure. Patient does have some leg swelling however that is fairly normal for her. No calf pain. No fever. - Related Data Home Medications Medication Instructions Recorded Confirmed Cholecalciferol [Vitamin D3 (25 1,000 unit PO DAILY 06/24/19 08/07/20 Mcg = 1000 Iu)] Folic Acid 1 mg PO DAILY 06/24/19 08/07/20 Nitroglycerin Sl Tabs [Nitrostat] 0.4 mg PO Q5M PRN 06/24/19 08/07/20 amLODIPine [Norvasc] 5 mg PO DAILY 06/24/19 08/07/20 metHOTREXate sodium [Methotrexate] 15 mg PO MO 06/24/19 08/07/20 HYDROcodone/APAP 7.5-325MG [[place] 1 tab PO Q8H PRN 08/07/20 08/07/20 7.5-325] Omeprazole 20 mg PO DAILY 08/07/20 08/07/20 Previous Rx's Medication Instructions Recorded Apixaban [Eliquis] 5 mg PO BID #0 tab 06/27/19 Atorvastatin [Lipitor] 40 mg PO DAILY tab 06/27/19 Metoprolol Tartrate [Lopressor] 25 mg PO BID tab 06/27/19 Allergies Allergy/AdvReac Type Severity Reaction Status Date / Time No Known Allergies Allergy Verified 08/07/20 13:23 Review of Systems ROS Statement: Those systems with pertinent positive or pertinent negative responses have been documented in the HPI. ROS Other: All systems not noted in ROS Statement are negative. Constitutional: Denies: fever, chills Eyes: Denies: eye pain ENT: Denies: ear pain, throat pain Respiratory: Reports: dyspnea Cardiovascular: Denies: chest pain Endocrine: Reports: fatigue Gastrointestinal: Denies: abdominal pain Genitourinary: Denies: dysuria Musculoskeletal: Denies: back pain Skin: Denies: rash Neurological: Denies: headache Past Medical History Past Medical History: Atrial Fibrillation, Diabetes Mellitus, GERD/Reflux, Hypertension, Rheumatoid Arthritis (RA) History of Any Multi-Drug Resistant Organisms: None Reported Past Surgical History: Cholecystectomy, Orthopedic Surgery Additional Past Surgical History / Comment(s): removed bone in left foot. Past Psychological History: Anxiety Smoking Status: Former smoker Past Alcohol Use History: None Reported Past Drug Use History: None Reported - Past Family History Father History Unknown: Yes General Exam Limitations: no limitations General appearance: alert, in no apparent distress Head exam: Present: normocephalic Eye exam: Present: normal appearance Neck exam: Present: normal inspection. Absent: tenderness Respiratory exam: Present: normal lung sounds bilaterally. Absent: chest wall tenderness Cardiovascular Exam: Present: irregular rhythm Expanded Peripheral pulses: 2+: Radial (R), Radial (L), Dorsalis Pedis (R), Dorsalis Pedis (L) GI/Abdominal exam: Present: soft. Absent: tenderness Extremities exam: Present: normal inspection, pedal edema. Absent: calf tenderness Neurological exam: Present: alert Psychiatric exam: Present: normal affect, normal mood Skin exam: Present: normal color Course Vital Signs 08/07/20 11:50 Temperature 98.6 F Pulse Rate 94 Respiratory 18 Rate Blood Pressure 171/108 O2 Sat by Pulse 100 Oximetry EKG Findings - EKG Comments: EKG Findings:: A. fib with rate of 99. QRS 102. QT 356. QTc 456. Right axis. Incomplete right bundle branch block. Nonspecific T waves. Medical Decision Making - Medical Decision Making Patient reevaluated and resting comfortably in bed. Patient updated on results and plan. Case was discussed with Dr. Baer, covering for Dr. Dennis, who will admit. - Lab Data Result diagrams: 08/07/20 12:37 08/07/20 12:37 Lab Results 08/07/20 08/07/20 08/07/20 Range/Units 12:37 12:37 12:37 WBC 7.2 (3.8-10.6) k/uL RBC 4.45 (3.80-5.40) m/uL Hgb 12.5 (11.4-16.0) gm/dL Hct 38.9 (34.0-46.0) % MCV 87.5 (80.0-100.0) fL MCH 28.1 (25.0-35.0) pg MCHC 32.1 (31.0-37.0) g/dL RDW 14.7 (11.5-15.5) % Plt Count 290 (150-450) k/uL MPV 7.0 Neutrophils % 61 % Lymphocytes % 29 % Monocytes % 5 % Eosinophils % 2 % Basophils % 1 % Neutrophils # 4.4 (1.3-7.7) k/uL Lymphocytes # 2.1 (1.0-4.8) k/uL Monocytes # 0.4 (0-1.0) k/uL Eosinophils # 0.2 (0-0.7) k/uL Basophils # 0.1 (0-0.2) k/uL PT 10.0 (9.0-12.0) sec INR 0.9 (<1.2) APTT 24.5 (22.0-30.0) sec Sodium 140 (137-145) mmol/L Potassium 4.4 (3.5-5.1) mmol/L Chloride 104 (98-107) mmol/L Carbon Dioxide 29 (22-30) mmol/L Anion Gap 7 mmol/L BUN 10 (7-17) mg/dL Creatinine 0.62 (0.52-1.04) mg/dL Est GFR (CKD-EPI)AfAm >90 (>60 ml/min/1.73 sqM) Est GFR (CKD-EPI)NonAf >90 (>60 ml/min/1.73 sqM) Glucose 174 H (74-99) mg/dL Plasma Lactic Acid Philip (0.7-2.0) mmol/L Calcium 10.4 H (8.4-10.2) mg/dL Total Bilirubin 0.9 (0.2-1.3) mg/dL AST 22 (14-36) U/L ALT 13 (4-34) U/L Alkaline Phosphatase 149 H (38-126) U/L Troponin I (0.000-0.034) ng/mL NT-Pro-B Natriuret Pep pg/mL Total Protein 6.6 (6.3-8.2) g/dL Albumin 3.9 (3.5-5.0) g/dL Coronavirus (PCR) (Not Detectd) 08/07/20 08/07/20 08/07/20 Range/Units 12:37 12:37 12:37 WBC (3.8-10.6) k/uL RBC (3.80-5.40) m/uL Hgb (11.4-16.0) gm/dL Hct (34.0-46.0) % MCV (80.0-100.0) fL MCH (25.0-35.0) pg MCHC (31.0-37.0) g/dL RDW (11.5-15.5) % Plt Count (150-450) k/uL MPV Neutrophils % % Lymphocytes % % Monocytes % % Eosinophils % % Basophils % % Neutrophils # (1.3-7.7) k/uL Lymphocytes # (1.0-4.8) k/uL Monocytes # (0-1.0) k/uL Eosinophils # (0-0.7) k/uL Basophils # (0-0.2) k/uL PT (9.0-12.0) sec INR (<1.2) APTT (22.0-30.0) sec Sodium (137-145) mmol/L Potassium (3.5-5.1) mmol/L Chloride (98-107) mmol/L Carbon Dioxide (22-30) mmol/L Anion Gap mmol/L BUN (7-17) mg/dL Creatinine (0.52-1.04) mg/dL Est GFR (CKD-EPI)AfAm (>60 ml/min/1.73 sqM) Est GFR (CKD-EPI)NonAf (>60 ml/min/1.73 sqM) Glucose (74-99) mg/dL Plasma Lactic Acid Philip 1.1 (0.7-2.0) mmol/L Calcium (8.4-10.2) mg/dL Total Bilirubin (0.2-1.3) mg/dL AST (14-36) U/L ALT (4-34) U/L Alkaline Phosphatase (38-126) U/L Troponin I <0.012 (0.000-0.034) ng/mL NT-Pro-B Natriuret Pep 857 pg/mL Total Protein (6.3-8.2) g/dL Albumin (3.5-5.0) g/dL Coronavirus (PCR) (Not Detectd) 08/07/20 Range/Units 12:38 WBC (3.8-10.6) k/uL RBC (3.80-5.40) m/uL Hgb (11.4-16.0) gm/dL Hct (34.0-46.0) % MCV (80.0-100.0) fL MCH (25.0-35.0) pg MCHC (31.0-37.0) g/dL RDW (11.5-15.5) % Plt Count (150-450) k/uL MPV Neutrophils % % Lymphocytes % % Monocytes % % Eosinophils % % Basophils % % Neutrophils # (1.3-7.7) k/uL Lymphocytes # (1.0-4.8) k/uL Monocytes # (0-1.0) k/uL Eosinophils # (0-0.7) k/uL Basophils # (0-0.2) k/uL PT (9.0-12.0) sec INR (<1.2) APTT (22.0-30.0) sec Sodium (137-145) mmol/L Potassium (3.5-5.1) mmol/L Chloride (98-107) mmol/L Carbon Dioxide (22-30) mmol/L Anion Gap mmol/L BUN (7-17) mg/dL Creatinine (0.52-1.04) mg/dL Est GFR (CKD-EPI)AfAm (>60 ml/min/1.73 sqM) Est GFR (CKD-EPI)NonAf (>60 ml/min/1.73 sqM) Glucose (74-99) mg/dL Plasma Lactic Acid Philip (0.7-2.0) mmol/L Calcium (8.4-10.2) mg/dL Total Bilirubin (0.2-1.3) mg/dL AST (14-36) U/L ALT (4-34) U/L Alkaline Phosphatase (38-126) U/L Troponin I (0.000-0.034) ng/mL NT-Pro-B Natriuret Pep pg/mL Total Protein (6.3-8.2) g/dL Albumin (3.5-5.0) g/dL Coronavirus (PCR) Not Detected (Not Detectd) - Radiology Data Radiology results: image reviewed (Chest x-ray concerning for CHF.) Disposition Clinical Impression: Congestive heart failure Disposition: ADMITTED IP TO THIS HOSP Is patient prescribed a controlled substance at d/c from ED?: No Referrals: Steve Dennis MD [Primary Care Provider] - 1-2 days Decision Time: 14:08
[2020-08-07 13:01] LABS: Basophils # (A) 0.1 k/uL (0-0.2); Basophils % (A) 1 %; Eosinophils # (A) 0.2 k/uL (0-0.7); Eosinophils % (A) 2 %; HCT 38.9 % (34.0-46.0); HGB 12.5 gm/dL (11.4-16.0); Lymphocytes # (A) 2.1 k/uL (1.0-4.8); Lymphocytes % (A) 29 %; MCH 28.1 pg (25.0-35.0); MCHC 32.1 g/dL (31.0-37.0); MCV 87.5 fL (80.0-100.0); Monocytes # (A) 0.4 k/uL (0-1.0); Monocytes % (A) 5 %; Neutrophils # (A) 4.4 k/uL (1.3-7.7); Neutrophils % (A) 61 %; Platelet Count 290 k/uL (150-450); RBC 4.45 m/uL (3.80-5.40); RDW 14.7 % (11.5-15.5); WBC 7.2 k/uL (3.8-10.6)
--- NOTE | 2020-08-07 13:01 | XR ---
EXAMINATION TYPE: XR chest 2V DATE OF EXAM: 08/07/2020 COMPARISON: Chest x-ray June 27, 2019 HISTORY: CHF with difficulty breathing. TECHNIQUE: Frontal and lateral views of the chest are obtained. FINDINGS: Persistent cardiomegaly with new mild central vascular congestion and interstitial edema. No pleural effusion or pneumothorax seen bilaterally. Atherosclerotic change aortic knob redemonstrat ed. Cholecystectomy clips noted. The osseous structures are intact. IMPRESSION: Correlate for CHF exacerbation as there is cardiomegaly with mild central vascular conge stion and interstitial edema noted.
[2020-08-07 13:14] LABS: ALT 13 U/L (4-34); AST 22 U/L (14-36); African American GFR (CKD) >90 (>60 ml/min/1.73 sqM); Albumin 3.9 g/dL (3.5-5.0); Alkaline Phosphatase 149 U/L (38-126); Anion Gap 7 mmol/L; Blood Urea Nitrogen 10 mg/dL (7-17); Calcium 10.4 mg/dL (8.4-10.2); Carbon Dioxide 29 mmol/L (22-30); Chloride 104 mmol/L (98-107); Glucose 174 mg/dL (74-99); Non-African American GFR(CKD) >90 (>60 ml/min/1.73 sqM); Potassium 4.4 mmol/L (3.5-5.1); Sodium 140 mmol/L (137-145); Total Bilirubin 0.9 mg/dL (0.2-1.3); Total Protein 6.6 g/dL (6.3-8.2)
[2020-08-07 13:18] LABS: INR 0.9 (<1.2); Partial Thromboplastin Time 24.5 sec (22.0-30.0)
[2020-08-07] MEDS ORDERED: ASPIRIN 325 MG TAB PO STA (14:08)
[2020-08-07] MEDS: FUROSEMIDE 10 MG/ML 4 ML VIAL IV SCH ×2 (16:26→16:31)
[2020-08-07] MEDS: NITROGLYCERIN OINT 1 INCH/GM PACKET TOPICAL SCH ×2 (16:26→19:54)
[2020-08-07 17:30] LABS: Glucose,Whole Blood 237 mg/dL (75-99)
[2020-08-07] MEDS: METOPROLOL TARTRATE 25 MG TAB PO SCH (19:53)
[2020-08-07] MEDS: HYDROcodone/APAP 7.5-325MG 1 EACH TAB PO PRN (19:53)
[2020-08-07] MEDS: APIXABAN 5 MG TAB PO SCH (19:53)
[2020-08-07] MEDS: amLODIPine 5 MG TAB PO SCH (19:55)
[2020-08-07 20:01] LABS: Glucose,Whole Blood 266 mg/dL (75-99)
[2020-08-07] MEDS: INSULIN ASPART (NovoLOG) 100 UNIT/ML VIAL SQ SCH (20:37)
--- NOTE | 2020-08-07 22:16 | P.HPIM ---
History of Present Illness H&P Date: 08/07/20 Chief Complaint: Left Shoulder pain Patient is a 70-year-old female with a known history of paroxysmal atrial fibrillation on anticoagulation with Eliquis, CVA with LUE weakness, hypertension, diabetes type 2 [id number], rheumatoid arthritis on methotrexate, anxiety and previous history of smoking was sent to hospital from Dr. Hwang's office due to complaints of left shoulder pain and neck pain. Patient states that she has been having left-sided neck pain behind the ear which is radiating down to the shoulder for the past 1/2-week. Patient is also having shortness of breath for several days. Patient was seen by her PCPs office in the clinic and was sent to ER for evaluation. Patient is also complaining of increased leg swelling bilaterally. No compl aints of cough or sputum production. No fever no chills. No chest pain. No nausea vomiting abdominal pain. No diaphoresis. No headache. No recent illnesses or sick contacts. EKG showed atrial fibrillation with heart rate 99 Chest x-ray showed correlate for CHF exacerbation as there is cardiomegaly with mild central vascular congestion and interstitial edema noted. Laboratory data showed WBC 7.2 hemoglobin 12.5 RDW 14.7 and platelets 290 INR 0.9 sodium 140 potassium 4.4 chloride 104 BUN 10 creatinine 0.62 blood sugar is 174 lactic acid 1.1 and calcium 10.4 and alk phos 149 Troponin x3 - proBNP 857 and coronavirus PCR not detected Review of Systems Constitutional: Patient denies any fever or chills . No generalized weakness or weight loss. Abdomen: Patient denied nausea vomiting and diarrhea and abdominal pain. Cardiovascular: Patient denies any chest pain or short of breath no palpitations. Respiratory: patient denied any cough or sputum production. No shortness of breath Neurologic: Patient denied any numbness or tingling headache. Musculoskeletal: Patient does have left-sided neck pain and shoulder pain. No joint swelling.. Skin: Negative Psychiatric: Negative Endocrine: No heat or cold intolerance. No recent weight gain. Genitourinary: No dysuria or hematuria. All other 14 point ROS negative except the above Past Medical History Past Medical History: Atrial Fibrillation, Diabetes Mellitus, GERD/Reflux, Hypertension, Rheumatoid Arthritis (RA) History of Any Multi-Drug Resistant Organisms: None Reported Past Surgical History: Cholecystectomy, Orthopedic Surgery Additional Past Surgical History / Comment(s): removed bone in left foot. Past Anesthesia/Blood Transfusion Reactions: No Reported Reaction Past Psychological History: Anxiety Smoking Status: Former smoker Past Alcohol Use History: None Reported Past Drug Use History: None Reported - Past Family History Father History Unknown: Yes Medications and Allergies Home Medications Medication Instructions Recorded Confirmed Type Cholecalciferol [Vitamin D3 (25 1,000 unit PO DAILY 06/24/19 08/07/20 History Mcg = 1000 Iu)] Folic Acid 1 mg PO DAILY 06/24/19 08/07/20 History Nitroglycerin Sl Tabs [Nitrostat] 0.4 mg PO Q5M PRN 06/24/19 08/07/20 History amLODIPine [Norvasc] 5 mg PO DAILY 06/24/19 08/07/20 History metHOTREXate sodium [Methotrexate] 15 mg PO MO 06/24/19 08/07/20 History Apixaban [Eliquis] 5 mg PO BID #0 tab 06/27/19 08/07/20 Rx Atorvastatin [Lipitor] 40 mg PO DAILY tab 06/27/19 08/07/20 Rx Metoprolol Tartrate [Lopressor] 25 mg PO BID tab 06/27/19 08/07/20 Rx HYDROcodone/APAP 7.5-325MG [[place] 1 tab PO Q8H PRN 08/07/20 08/07/20 History 7.5-325] Omeprazole 20 mg PO DAILY 08/07/20 08/07/20 History Allergies Allergy/AdvReac Type Severity Reaction Status Date / Time No Known Allergies Allergy Verified 08/07/20 13:23 Physical Exam Vitals: Vital Signs Temp Pulse Pulse Resp BP BP Pulse Ox 08/07/20 20:00 98.2 F 88 18 159/86 98 08/07/20 17:40 97.1 F L 84 18 148/103 99 08/07/20 17:17 78 16 111/73 94 L 08/07/20 16:32 97 18 124/95 98 08/07/20 14:34 95 16 139/119 99 08/07/20 11:50 98.6 F 94 18 171/108 100 Intake and Output 08/07/20 08/07/20 08/07/20 06:59 14:59 22:59 Other: Weight 90.718 kg 90.718 kg PHYSICAL EXAMINATION: Patient is lying in the bed comfortably, no acute distress, awake alert and oriented.. HEENT: Normocephalic. Neck is supple. Pupils reactive. Nostrils clear. Oral cavity is moist. Ears reveal no drainage. Neck reveals no JVD, carotid bruits, or thyromegaly. CHEST EXAMINATION: Trachea is central. Symmetrical expansion. Bibasilar diminished sounds. No wheezing., Lung nielson clear to auscultation and percussion. CARDIAC: Normal S1, S2 with no gallops. No murmurs ABDOMEN: Soft. Bowel sounds normal. No organomegaly. No abdominal bruits. Extremities: reveal no edema. No clubbing or cyanosis Neurologically awake, alert, oriented x3 with well-coordinated movements. Minimal left upper extremity weakness. Skin: No rash or skin lesions. Psychiatric: Coperative. Nonsuicidal Musculoskeletal: No joint swelling or deformity. Normal range of motion. Results CBC & Chem 7: 08/07/20 12:37 08/07/20 12:37 Labs: Abnormal Lab Results - Last 24 Hours (Table) 08/07/20 08/07/20 08/07/20 Range/Units 12:37 17:27 20:00 Glucose 174 H (74-99) mg/dL POC Glucose (mg/dL) 237 H 266 H (75-99) mg/dL Calcium 10.4 H (8.4-10.2) mg/dL Alkaline Phosphatase 149 H (38-126) U/L Thrombosis Risk Factor Assmnt - DVT/VTE Prophylaxis DVT/VTE Prophylaxis: Pharmacologic Prophylaxis ordered - Choose All That Apply Each Factor Represents 1 point: Heart failure (<1month), Obesity (BMI >25), Swollen legs (current) Each Risk Factor Represents 2 Points: Age 61-74 years Thrombosis Risk Factor Assessment Total Risk Factor Score: 5 Thrombosis Risk Factor Assessment Level: High Risk Assessment and Plan Assessment: Atypical chest pain/left shoulder pain and neck pain. Likely musculoskeletal. Ruled out ACS. History of cardiac catheterization on 06/24/2019 showing mild triple-vessel disease. 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 Chronic atrial fibrillation on anticoagulation with Eliquis Hypertension Rheumatoid arthritis on methotrexate Diabetes type 2 [id number] Anxiety DVT prophylaxis patient is already on Eliquis Plan: Patient be continued on telemetry monitoring. Serial EKG and troponin x3 -. Patient does have atrial fibrillation with controlled heart rate. Continued metoprolol and anticoagulation with Eliquis. Left shoulder and left neck pain likely due to musculoskeletal origin. Due to history of remote arthritis will get CT of the cervical spine. Continue with pain management and follow-up conchita oropeza. PT OT will be consulted. Further recommendations based on the clinical course. Time with Patient: Greater than 30
[2020-08-08] MEDS: HYDROcodone/APAP 7.5-325MG 1 EACH TAB PO PRN (02:49)
[2020-08-08] MEDS: INSULIN ASPART (NovoLOG) 100 UNIT/ML VIAL SQ SCH ×2 (05:55→12:43)
[2020-08-08] MEDS: FUROSEMIDE 10 MG/ML 4 ML VIAL IV SCH (05:55)
[2020-08-08 05:57] LABS: Glucose,Whole Blood 178 mg/dL (75-99)
[2020-08-08] MEDS ORDERED: HYDROcodone/APAP 7.5-325MG 1 EACH TAB PO PRN (06:19)
[2020-08-08] MEDS ORDERED: PANTOPRAZOLE 40 MG TABLET PO SCH (07:30)
[2020-08-08] MEDS ORDERED: CHOLECALCIFEROL 25 MCG (1000 IU) TABLET PO SCH (09:00)
[2020-08-08] MEDS ORDERED: FOLIC ACID 1 MG TAB PO SCH (09:00)
[2020-08-08] MEDS ORDERED: ATORVASTATIN 40 MG TAB PO SCH (09:00)
[2020-08-08] MEDS: METOPROLOL TARTRATE 25 MG TAB PO SCH (09:17)
[2020-08-08] MEDS: NITROGLYCERIN OINT 1 INCH/GM PACKET TOPICAL SCH ×2 (09:17→12:43)
[2020-08-08] MEDS: APIXABAN 5 MG TAB PO SCH (09:17)
[2020-08-08] MEDS: amLODIPine 5 MG TAB PO SCH (09:17)
--- NOTE | 2020-08-08 09:20 | US ---
EXAMINATION TYPE: US carotid duplex BILAT DATE OF EXAM: 08/08/2020 COMPARISON: Carotid ultrasound June 25, 2019 CLINICAL HISTORY: left sided neck pain. EXAM MEASUREMENTS: RIGHT: Peak Systolic Velocity (PSV) cm/sec ----- Right CCA: 61.9 ----- Right ICA: 69.8 ----- Right ECA: 52.3 ICA/CCA ratio: 1.1 RIGHT: End Diastole cm/sec ----- Right CCA: 13.0 ----- Right ICA: 15.4 ----- Right ECA: 10.4 LEFT: Peak Systolic Velocity (PSV) cm/sec ----- Left CCA: 79.2 ----- Left ICA: 93.1 ----- Left ECA: 47.0 ICA/CCA ratio: 1.2 LEFT: End Diastole cm/sec ----- Left CCA: 13.1 ----- Left ICA: 41.3 ----- Left ECA: 7.8 VERTEBRALS (direction of flow): Right Vertebral: Antegrade Left Vertebral: Antegrade Rhythm: Arrhythmia Intimal thickening noted throughout. No elevated velocities. Mild to moderate shadowing plaque at bilateral carotid bulb level IMPRESSION: [id number] bilateral atherosclerotic changes without hemodynamically significant s tenosis seen in either internal carotid artery. Criteria for Assigning % of Stenosis / Diameter reduction (Estimation based on the indirect measurements of the internal carotid artery velocities (ICA PSV). 1. Normal (no stenosis)=ICA PSV < 125 cm/s: ratio < 2.0: ICA EDV<40 cm/s. 2. Less than 50% stenosis=ICA PSV < 125 cm/s: ratio < 2.0: ICA EDV<40 cm/s. 3. 50 to 69% stenosis=ICA PSV of 125 to 230 cm/s: ration 2.0 ? 4.0: ICA EDV 40-100 cm/s. 4. Greater than 70% stenosis to near occlusion= ICA PSV > 230 cm/s: ratio > 4.0: ICA EDV > 100 cm/s. 5. Near occlusion= ICA PSV velocities may be low or undetectable: variable ratio and ICA EDV. 6. Total occlusion=unable to detect flow.
--- NOTE | 2020-08-08 11:18 | CT ---
EXAMINATION TYPE: CT cervical spine wo con DATE OF EXAM: 08/08/2020 COMPARISON: MRI cervical spine June 25, 2019 HISTORY: Left sided neck pain CT DLP: 641.3 mGycm. Automated Exposure Control for Dose Reduction was Utilized. TECHNIQUE: CT scan of the cervical spine is obtained without contrast, axial images are obtained, sa gittal and coronal reformatted images are also reviewed. FINDINGS: There is persistent dextroconvex scoliosis centered in the upper thoracic spine. There is p ersistent mild to moderate disc space narrowing and spurring C4-C5 and C6-C7 levels. Vertebral body h eights are maintained. No suspicious prevertebral soft tissue swelling. Spinal canal is preserved. Review of axial images shows C2-C3 and C3-C4 level to appear within normal limits. Axial images at C4-C5 through C6-C7 levels show multilevel uncovertebral facet degenerative changes w ith posterior disc herniations effacing anterior thecal sac and causing bilateral neural foraminal na rrowing, findings correlated with 2020 MRI. Most prominent level is felt right C5-C6 level near axial image 54. Axial images at C7-T1 level shows central disc protrusion effacing anterior thecal sac. Visualized upper lungs show no pneumothorax. Thyroid gland appears within normal limits. Mild calcifi ed plaque right carotid bulb level. IMPRESSION: As above.
[2020-08-08 11:48] VITALS: RESP 16; TEMP 96.2
[2020-08-08 11:53] LABS: Glucose,Whole Blood 185 mg/dL (75-99)
--- NOTE | 2020-08-08 12:35 | P.CRDCN ---
History of Present Illness History of present illness: HISTORY OF PRESENTING ILLNESS This is a pleasant 70 year-old female past medical history significant for, chronic persistent atrial fibrillation (on eliquis), rheumatoid arthritis (takes methotrexate), previous CVA 2, hypertension, Type 2 diabetes. She follows in the office with Dr. Fatima. We have been asked to see in consultation for congestive heart failure. Patient is seen and examined at bedside, up in the chair. No acute distress. Patient states she was at her PCP office with complaints of worsening dyspnea on exertion, lightheadedness, and fatigue and was told to come to the emergency department for further evaluation. She also has been having constant left neck and left arm pain. The pain feels like "squeezing" and pressure. This pain is not new and has been going on for some times now. She takes Vesuvius with out relief. This pain is constant and does not change with movement or exertion. She also states she has lower extremity edema. She does have mild symptoms of orthopnea. Patient has recently seen Dr. Myles in the office on 07/25/2020 with similar complaints, he was recommended to get an echocardiogram and a Holter monitor placed before the next office visit. She walks with a walker. On exam she does not appear to be in heart failure. Echocardiogram completed, and reviewed at bedside with no acute changes. Laboratory data reviewed, CBC unremarkable, troponin negative 3, BNP 857, serum creatinine 0.62, BUN 10, Vital signs blood pressure 132/79, heart rate 64, afebrile, maintaining oxygen saturation is 98% on room air. Covid-19 negative DIAGNOSTICS Most recent Echo 06/25/2019EF is 52%, mild TR, mild MR. Cardiac cath on 06/24/2019,20% LAD, 20% mid Cx, 20% proximal RCA, right dominant EKG reveals atrial fibrillation HR 99 Carotid dopplers- mild to moderate bilateral atherosclerotic changes without hemodynamically significant stenosis seen Telemetry tracings indicate atrial fibrillation heart rate 70-100 Chest xray Persistent cardiomegaly with new mild central vascular congestion and interstitial edema. Current cardiac medications include methotrexate 50 mg daily, amlodipine 5 mg daily, metoprolol tartrate 25 mg twice a day, atorvastatin 40 mg daily, Eliquis 5 mg BID REVIEW OF SYSTEMS At the time of my exam: CONSTITUTIONAL: Denies fever or chills. CARDIOVASCULAR: Positive shortness of breath, Positive orthopnea Denies chest pain,PND or palpitations. RESPIRATORY: Denies cough. GASTROINTESTINAL: Denies abdominal pain, diarrhea, constipation, nausea or vomiting. MUSCULOSKELETAL: Denies myalgias. NEUROLOGIC: +lightheadedness Denies numbness, tingling, headacbe or weakness. ENDOCRINE: Denies fatigue, weight change, polydipsia or polyurina. GENITOURINARY: Denies burning, hematuria or urgency with micturation. HEMATOLOGIC: Denies history of anemia or bleeding. PHYSICAL EXAMINATION CONSTITUTIONAL: No apparent distress. HEENT: Head is normocephalic. Pupils are equal, round. Sclerae anicteric. Mucous membranes of the mouth are moist. No JVD. No carotid bruit. CHEST EXAMINATION: Lungs are clear to auscultation. No chest wall tenderness is noted on palpation or with deep breathing. HEART EXAMINATION: Regular rate and rhythm. S1, S2 heard. No murmurs, gallops or rub. ABDOMEN: Soft, nontender. Positive bowel sounds. EXTREMITIES: 2+ peripheral pulses,trace bilateral lower extremity edema and no calf tenderness. SKIN: intact NEUROLOGIC EXAMINATION: Patient is awake, alert and oriented x3. ASSESSMENT Shortness of breath Chronic persistent atrial fibrillation (on eliquis) Hypertension Type 2 Diabetes Rheumatoid arthritis (takes methotrexate) Previous CVA 2 PLAN -From cardiology perspective, patient does not appear to be in heart failure. No further testing at this time. Patient can be discharged from cardiology perspective -Discontinue IV Lasix, transition to PO Lasix 20mg BID -Continue eliquis, aspirin, statin, beta sid -Patient to follow up with Dr. Fatima at her next scheduled appointment Nurse Practitioner note has been reviewed, I agree with a documented findings and plan of care. Patient was seen and examined. Past Medical History Past Medical History: Atrial Fibrillation, Diabetes Mellitus, GERD/Reflux, Hypertension, Rheumatoid Arthritis (RA) History of Any Multi-Drug Resistant Organisms: None Reported Past Surgical History: Cholecystectomy, Orthopedic Surgery Additional Past Surgical History / Comment(s): removed bone in left foot. Past Anesthesia/Blood Transfusion Reactions: No Reported Reaction Past Psychological History: Anxiety Smoking Status: Former smoker Past Alcohol Use History: None Reported Past Drug Use History: None Reported - Past Family History Father History Unknown: Yes Medications and Allergies Home Medications Medication Instructions Recorded Confirmed Type Cholecalciferol [Vitamin D3 (25 1,000 unit PO DAILY 06/24/19 08/07/20 History Mcg = 1000 Iu)] Folic Acid 1 mg PO DAILY 06/24/19 08/07/20 History Nitroglycerin Sl Tabs [Nitrostat] 0.4 mg PO Q5M PRN 06/24/19 08/07/20 History amLODIPine [Norvasc] 5 mg PO DAILY 06/24/19 08/07/20 History metHOTREXate sodium [Methotrexate] 15 mg PO MO 06/24/19 08/07/20 History Apixaban [Eliquis] 5 mg PO BID #0 tab 06/27/19 08/07/20 Rx Atorvastatin [Lipitor] 40 mg PO DAILY tab 06/27/19 08/07/20 Rx Metoprolol Tartrate [Lopressor] 25 mg PO BID tab 06/27/19 08/07/20 Rx HYDROcodone/APAP 7.5-325MG [[place] 1 tab PO Q8H PRN 08/07/20 08/07/20 History 7.5-325] Omeprazole 20 mg PO DAILY 08/07/20 08/07/20 History Allergies Allergy/AdvReac Type Severity Reaction Status Date / Time No Known Allergies Allergy Verified 08/07/20 13:23 Physical Exam Vitals: Vital Signs Temp Pulse Pulse Resp BP BP Pulse Ox 08/08/20 02:56 98.1 F 82 18 143/85 100 08/08/20 01:30 76 16 08/07/20 23:23 97.6 F 72 17 131/57 98 08/07/20 20:00 98.2 F 88 18 159/86 98 08/07/20 17:40 97.1 F L 84 18 148/103 99 08/07/20 17:17 78 16 111/73 94 L 08/07/20 16:32 97 18 124/95 98 08/07/20 14:34 95 16 139/119 99 08/07/20 11:50 98.6 F 94 18 171/108 100 Intake and Output 08/07/20 08/08/20 08/08/20 22:59 06:59 14:59 Output Total 200 Balance -200 Output: Urine 200 Other: # Voids 1 Weight 90.718 kg 91.3 kg Results 08/07/20 12:37 08/07/20 12:37 Cardiac Enzymes 08/07/20 08/07/20 08/07/20 Range/Units 12:37 12:37 15:40 AST 22 (14-36) U/L Troponin I <0.012 <0.012 (0.000-0.034) ng/mL 08/07/20 Range/Units 18:38 AST (14-36) U/L Troponin I <0.012 (0.000-0.034) ng/mL Coagulation 08/07/20 Range/Units 12:37 PT 10.0 (9.0-12.0) sec APTT 24.5 (22.0-30.0) sec CBC 08/07/20 Range/Units 12:37 WBC 7.2 (3.8-10.6) k/uL RBC 4.45 (3.80-5.40) m/uL Hgb 12.5 (11.4-16.0) gm/dL Hct 38.9 (34.0-46.0) % Plt Count 290 (150-450) k/uL Comprehensive Metabolic Panel 08/07/20 Range/Units 12:37 Sodium 140 (137-145) mmol/L Potassium 4.4 (3.5-5.1) mmol/L Chloride 104 (98-107) mmol/L Carbon Dioxide 29 (22-30) mmol/L BUN 10 (7-17) mg/dL Creatinine 0.62 (0.52-1.04) mg/dL Glucose 174 H (74-99) mg/dL Calcium 10.4 H (8.4-10.2) mg/dL AST 22 (14-36) U/L ALT 13 (4-34) U/L Alkaline Phosphatase 149 H (38-126) U/L Total Protein 6.6 (6.3-8.2) g/dL Albumin 3.9 (3.5-5.0) g/dL Current Medications Generic Name Dose Route Start Last Admin Trade Name Freq PRN Reason Stop Dose Admin Hydrocodone Bitart/Acetaminophen 1 each 08/08/20 06:19 Hydrocodone/Apap 7.5-325mg 1 Each Tab PO Q4H PRN Pain Amlodipine Besylate 5 mg 08/07/20 18:00 08/07/20 19:55 Amlodipine 5 Mg Tab PO 5 mg DAILY EMMY Administration Apixaban 5 mg 08/07/20 21:00 08/07/20 19:53 Apixaban 5 Mg Tab PO 5 mg BID EMMY Administration Aspirin 325 mg 08/09/20 09:00 Aspirin 325 Mg Tab PO DAILY [facility] Atorvastatin Calcium 40 mg 08/08/20 09:00 Atorvastatin 40 Mg Tab PO DAILY [facility] Cholecalciferol 25 mcg 08/08/20 09:00 Cholecalciferol 25 Mcg (1000 Iu) Tablet PO DAILY [facility] Folic Acid 1 mg 08/08/20 09:00 Folic Acid 1 Mg Tab PO DAILY [facility] Furosemide 40 mg 08/07/20 14:15 08/08/20 05:55 Furosemide 10 Mg/Ml 4 Ml Vial IV 40 mg Q8H EMMY Administration Insulin Aspart 0 unit 08/07/20 21:00 08/08/20 05:55 Insulin Aspart (Novolog) 100 Unit/Ml Vial SQ 2 unit ACHS EMMY Administration Protocol Methotrexate 15 mg 08/11/20 09:00 Methotrexate Sodium 2.5 Mg Tab PO MO [facility] Metoprolol Tartrate 25 mg 08/07/20 21:00 08/07/20 19:53 Metoprolol Tartrate 25 Mg Tab PO 25 mg BID [facility] Administration Nitroglycerin 1 inch 08/07/20 18:00 08/07/20 19:54 Nitroglycerin Oint 1 Inch/Gm Packet TOPICAL 1 inch QID EMMY Administration Pantoprazole Sodium 40 mg 08/08/20 07:30 08/08/20 05:55 Pantoprazole 40 Mg Tablet PO 40 mg [id number] EMMY Administration Sodium Chloride 10 ml 08/07/20 21:00 08/07/20 20:39 Sodium Chloride 0.9% Flush 10 Ml Syringe IV Not Given BID [facility] Intake and Output 08/07/20 08/08/20 08/08/20 22:59 06:59 14:59 Output Total 200 Balance -200 Output: Urine 200 Other: # Voids 1 Weight 90.718 kg 91.3 kg 08/07/20 12:37 08/07/20 12:37
[2020-08-08 12:47] VITALS: BP 131/69; PULSE 88
[2020-08-08 14:40] VITALS: BMI 34.5
[2020-08-08] MEDS ORDERED: FUROSEMIDE 20 MG TAB PO SCH (16:00)
[2020-08-09] MEDS ORDERED: ASPIRIN 81 MG PO SCH (09:00)
[2020-08-09] MEDS ORDERED: ASPIRIN 325 MG TAB PO SCH (09:00)
--- NOTE | 2020-08-09 13:29 | ECHOF ---
Referral Reason:worsening dyspnea on exertion MEASUREMENTS -------- HEIGHT: 162.6 cm WEIGHT: 91.2 kg BP: IVSd: 1.8 cm (0.6 - 1.1) LVIDd: 4.4 cm (3.9 - 5.3) LVPWd: 1.8 cm (0.6 - 1.1) IVSs: 2.1 cm LVIDs: 3.3 cm LVPWs: 2.0 cm LAESV Index (A-L): 32.68 ml/m Ao Diam: 3.6 cm (2.0 - 3.7) AV Cusp: 2.2 cm (1.5 - 2.6) RAP: 5.00 mmHg RVSP: 33.60 mmHg FINDINGS -------- This was a technically difficult study with suboptimal views. The left ventricular size is normal. There is severe concentric left ventricular hypertrophy. Ove rall left ventricular systolic function is low-normal with, an EF between 50 - 55 %. The RV was not well visualized. LA is midly dilated 29-33ml/m2. The right atrium was not well visualized. 5.0mg of Lumason was utilized for enhancement of images Interatrial and interventricular septum intact. There is mild aortic valve sclerosis. Trace to mild aortic regurgitation. There is no evidence of aortic stenosis. There is trace mitral regurgitation. Mild tricuspid regurgitation present. There is borderline pulmonary artery hypertension. The righ t ventricular systolic pressure, as measured by Doppler, is 33.60mmHg. There is no pulmonic regurgitation present. The aortic root size is normal. IVC Not well visulized. There is a trivial pericardial effusion present. CONCLUSIONS -------- 1. The left ventricular size is normal. 2. There is severe concentric left ventricular hypertrophy. 3. Overall left ventricular systolic function is low-normal with, an EF between 50 - 55 %. 4. LA is midly dilated 29-33ml/m2. 5. There is mild aortic valve sclerosis. 6. Trace to mild aortic regurgitation. 7. There is trace mitral regurgitation. 8. Mild tricuspid regurgitation present. 9. There is borderline pulmonary artery hypertension. 10. The right ventricular systolic pressure, as measured by Doppler, is 33.60mmHg. 11. There is a trivial pericardial effusion present. CUSTOM DECORATING CONSULTANT: Liberty Heredia [facility]
[2020-08-11] MEDS ORDERED: metHOTREXate sodium 2.5 MG TAB PO SCH (09:00)
--- NOTE | 2020-08-27 22:50 | P.DS ---
Providers Date of admission: 08/07/20 14:08 Expected date of discharge: 08/08/20 Attending physician: Malena Baer Consults: 08/07/20 14:08 Consult Physician Routine Consulting Provider: Jeri Fatima Consult Reason/Comments: chf Do you want consulting provider notified?: Yes Primary care physician: Steve Dennis Hospital Course: Discharge diagnosis Atypical chest pain/left shoulder pain and neck pain. Likely musculoskeletal. Ruled out ACS. History of cardiac catheterization on 06/24/2019 showing mild triple-vessel disease. 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 Chronic atrial fibrillation on anticoagulation with Eliquis Hypertension Rheumatoid arthritis on methotrexate Diabetes type 2 [id number] Anxiety DVT prophylaxis patient is already on Eliquis Hospital course Patient is a 70-year-old female with a known history of paroxysmal atrial fibrillation on anticoagulation with Eliquis, CVA with LUE weakness, hypertension, diabetes type 2 [id number], rheumatoid arthritis on methotrexate, anxiety and previous history of smoking was sent to hospital from Dr. Hwang's office due to complaints of left shoulder pain and neck pain. Patient states that she has been having left-sided neck pain behind the ear which is radiating down to the shoulder for the past 1/2-week. Patient is also having shortness of breath for several days. Patient was seen by her PCPs office in the clinic and was sent to ER for evaluation. Patient is also complaining of increased leg swelling bilaterally. No complaints of cough or sputum production. No fever no chills. No chest pain. No nausea vomiting abdominal pain. No diaphoresis. No headache. No recent illnesses or sick contacts. EKG showed atrial fibrillation with heart rate 99 Chest x-ray showed correlate for CHF exacerbation as there is cardiomegaly with mild central vascular congestion and interstitial edema noted. Laboratory data showed WBC 7.2 hemoglobin 12.5 RDW 14.7 and platelets 290 INR 0.9 sodium 140 potassium 4.4 chloride 104 BUN 10 creatinine 0.62 blood sugar is 174 lactic acid 1.1 and calcium 10.4 and alk phos 149 Troponin x3 - proBNP 857 and coronavirus PCR not detected Patient was continued on telemetry monitoring. Serial EKG and troponin x3 -. Patient does have chronic atrial fibrillation with controlled heart rate. Continued metoprolol and anticoagulation with Eliquis. Left shoulder and left neck pain likely due to musculoskeletal origin. Due to history of remote arthritis ordered CT of the cervical spine. Continued with pain management and follow-up closely. CT cervical spine showed C5-C5 through C6-C7 multilevel uncovertebral facet degenerative changes with posterior disc herniation effacing anterior thecal sac and causing bilateral neural foraminal narrowing findings correlate with 2020 MRI. 2D echocardiogram was done which showed EF 50 to 55% and no evidence of aortic stenosis. Borderline pulmonary hypertension. Patient was seen by cardiology and recommends no intervention at this time. Continue with Lasix 20 mg twice daily and aspirin daily. Patient did improve symptomatically and is being discharged home today. Patient will be continued home PT and follow-up with cardiology and primary care physician. PHYSICAL EXAMINATION: Patient is lying in the bed comfortably, no acute distress, awake alert and oriented.. HEENT: Normocephalic. Neck is supple. Pupils reactive. Nostrils clear. Oral cavity is moist. Ears reveal no drainage. Neck reveals no JVD, carotid bruits, or thyromegaly. CHEST EXAMINATION: Trachea is central. Symmetrical expansion. No wheezing., Lung nielson clear to auscultation and percussion. CARDIAC: Normal S1, S2 with no gallops. No murmurs ABDOMEN: Soft. Bowel sounds normal. No organomegaly. No abdominal bruits. Extremities: reveal no edema. No clubbing or cyanosis Neurologically awake, alert, oriented x3 with well-coordinated movements. Minimal left upper extremity weakness. Skin: No rash or skin lesions. Psychiatric: Coperative. Nonsuicidal Musculoskeletal: No joint swelling or deformity. Normal range of motion. Vital Signs Temp Pulse Pulse Resp BP BP Pulse Ox 08/08/20 02:56 98.1 F 82 18 143/85 100 08/08/20 01:30 76 16 08/07/20 23:23 97.6 F 72 17 131/57 98 08/07/20 20:00 98.2 F 88 18 159/86 98 08/07/20 17:40 97.1 F L 84 18 148/103 99 08/07/20 17:17 78 16 111/73 94 L 08/07/20 16:32 97 18 124/95 98 08/07/20 14:34 95 16 139/119 99 08/07/20 11:50 98.6 F 94 18 171/108 100 Intake and Output 08/07/20 08/08/20 08/08/20 22:59 06:59 14:59 Output Total 200 Balance -200 Output: Urine 200 Other: # Voids 1 Weight 90.718 kg 91.3 kg Time taken greater than 35 minutes in patient care out of which more than 50% was spent on counseling and coordination of care. Patient Condition at Discharge: Stable Plan - Discharge Summary Discharge Rx Participant: No New Discharge Prescriptions: New Aspirin 81 mg PO DAILY #30 chew Furosemide [Lasix] 20 mg PO BID@0900,1600 #60 tab metFORMIN HCL [Glucophage] 500 mg PO BID #60 tab Insulin Detemir (Levemir) [Levemir] 10 unit SQ HS 30 Days #1 vial Continue metHOTREXate sodium [Methotrexate] 15 mg PO MO Folic Acid 1 mg PO DAILY Cholecalciferol [Vitamin D3 (25 Mcg = 1000 Iu)] 1,000 unit PO DAILY amLODIPine [Norvasc] 5 mg PO DAILY Nitroglycerin Sl Tabs [Nitrostat] 0.4 mg PO Q5M PRN PRN Reason: Chest Pain Apixaban [Eliquis] 5 mg PO BID #0 tab Atorvastatin [Lipitor] 40 mg PO DAILY tab Metoprolol Tartrate [Lopressor] 25 mg PO BID tab HYDROcodone/APAP 7.5-325MG [[place] 7.5-325] 1 tab PO Q8H PRN PRN Reason: Pain Omeprazole 20 mg PO DAILY Discharge Medication List Cholecalciferol [Vitamin D3 (25 Mcg = 1000 Iu)] 1,000 unit PO DAILY 06/24/19 [History] Folic Acid 1 mg PO DAILY 06/24/19 [History] Nitroglycerin Sl Tabs [Nitrostat] 0.4 mg PO Q5M PRN 06/24/19 [History] amLODIPine [Norvasc] 5 mg PO DAILY 06/24/19 [History] metHOTREXate sodium [Methotrexate] 15 mg PO MO 06/24/19 [History] Apixaban [Eliquis] 5 mg PO BID #0 tab 06/27/19 [Rx] Atorvastatin [Lipitor] 40 mg PO DAILY tab 06/27/19 [Rx] Metoprolol Tartrate [Lopressor] 25 mg PO BID tab 06/27/19 [Rx] HYDROcodone/APAP 7.5-325MG [[place] 7.5-325] 1 tab PO Q8H PRN 08/07/20 [History] Omeprazole 20 mg PO DAILY 08/07/20 [History] Aspirin 81 mg PO DAILY #30 chew 08/08/20 [Rx] Furosemide [Lasix] 20 mg PO BID@0900,1600 #60 tab 08/08/20 [Rx] Insulin Detemir (Levemir) [Levemir] 10 unit SQ HS 30 Days #1 vial 08/08/20 [Rx] metFORMIN HCL [Glucophage] 500 mg PO BID #60 tab 08/08/20 [Rx] Follow up Appointment(s)/Referral(s): Steve Dennis MD [Primary Care Provider] - 08/14/20 9:40 am [facility], [NON-STAFF] - As Needed Patient Instructions/Handouts: Heart Failure (ER), Heart Failure (DC) Discharge Disposition: HOME WITH HOME HEALTH SERVICES
== END 2020-08-08 15:00 | disposition home health service (06) | DRG 313 ==
LOC: EC 11:39 → SUPCPDRO 11:39 → 3SCARD 14:08
PROVIDERS: ADMIT Internal Medicine; ATTEND Internal Medicine
DX: R07.89 Other chest pain (principal); I48.19 Other persistent atrial fibrillation; M50.322 Other cervical disc degeneration at C5-C6 level; M50.323 Other cervical disc degeneration at C6-C7 level; M50.222 Other cervical disc displacement at C5-C6 level; M50.223 Other cervical disc displacement at C6-C7 level; E11.9 Type 2 diabetes mellitus without complications; F41.9 Anxiety disorder, unspecified; I11.0 Hypertensive heart disease with heart failure; I27.20 Pulmonary hypertension, unspecified; I50.9 Heart failure, unspecified; M06.9 Rheumatoid arthritis, unspecified; I25.10 Atherosclerotic heart disease of native coronary artery without angina pectoris; Z20.822 Contact with and (suspected) exposure to COVID-19; Z79.01 Long term (current) use of anticoagulants; Z79.82 Long term (current) use of aspirin; Z79.899 Other long term (current) drug therapy; I69.334 Monoplegia of upper limb following cerebral infarction affecting left non-dominant side; Z87.891 Personal history of nicotine dependence; K21.9 Gastro-esophageal reflux disease without esophagitis; I08.1 Rheumatic disorders of both mitral and tricuspid valves; M25.512 Pain in left shoulder
CPT/HCPCS: 36415; 71046; 72125; 80053; 83605; 83880; 84484; 85025; 85610; 85730; 87635; 93005; 93306; 93880; 94640; 99285

== ENCOUNTER 2020-11-13 06:13 | Day surgery (SDC) | payer MEDICARE, OTHER ==
[2020-11-12 12:11] VITALS: BMI 34.6
[~2020-11-13 06:13] MED LIST: LACTATED RINGERS 1,000 ML IV SCH; SODIUM CHLORIDE 0.9% 1,000 ML IV SCH
[2020-11-13 07:01] VITALS: TEMP 99.8
[2020-11-13 07:05] LABS: Glucose,Whole Blood 178 mg/dL (75-99)
[2020-11-13] MEDS ORDERED: KETAMINE 10 MG/ML 20 ML VIAL ONE (07:30)
[2020-11-13] MEDS ORDERED: LIDOCAINE 1% INJ 10MG/ML (20 ML MDV) ONE (07:30)
[2020-11-13] MEDS ORDERED: fentaNYL (PF) 50 MCG/ML 2 ML AMP ONE (07:30)
[2020-11-13] MEDS ORDERED: PROPOFOL 10 MG/ML 20 ML VIAL IV ONE (07:30)
[2020-11-13] MEDS ORDERED: MIDAZOLAM 2 MG/2 ML VIAL ONE (07:30)
[2020-11-13] MEDS ORDERED: BENZOCAINE SPRAY 1 CAN TOPICAL ONE (07:40)
[2020-11-13] MEDS ORDERED: HYDROcodone/APAP 7.5-325MG 1 EACH TAB PO PRN (07:56)
[2020-11-13] MEDS ORDERED: SODIUM CHLORIDE 0.9% 1,000 ML IV SCH (08:00)
[2020-11-13] MEDS ORDERED: METOPROLOL TARTRATE 50 MG TAB PO STA (08:13)
[2020-11-13 08:18] VITALS: RESP 18
--- NOTE | 2020-11-13 08:56 | ECHOT ---
TRANSESOPHAGEAL ECHOCARDIOGRAM INDICATIONS FOR PROCEDURE: Atrial fibrillation. PROCEDURE: After explaining the procedure to the patient its risks and the complications, blood pressure, heart rate, O2 saturation was monitored, the throat was sprayed with Cetacaine. She received sedation per Anesthesia Department. The probe was introduced in the esophagus without difficulty images were obtained from that, the probe was removed there was no immediate complication. FINDINGS: Left atrial size is mildly dilated. Left atrial appendage is emerald. Left ventricular size is normal. There is mild global hypokinesis. Estimated ejection fraction 45-50 percent. The aortic valve appears to be normal. Mitral valve is normal. No pericardial effusion was noted. Contrast bubble study revealed no evidence no evidence shunting across the interatrial septum. Pulse wave and color Doppler obtained revealed mild mitral with mild to moderate tricuspid regurgitation. Estimated right ventricular systolic pressure is about 45 minutes mmHg. Mild aortic regurgitation was noted. No shunting across the interatrial septum was noted. CONCLUSION: 1. Mild dilated atrium with normal appearance left atrial appendage. 2. Normal size with mild global hypokinesis. 3. Mild mitral and aortic regurgitation with mild to moderate tricuspid regurgitation, with mild pulmonary hypertension. 4. No shunting across the interatrial septum. MMODL / IJN: [id number] /
[2020-11-13] MEDS ORDERED: FLECAINIDE 50 MG TAB PO SCH (09:00)
--- NOTE | 2020-11-13 09:00 | PCN ---
PROCEDURE NOTE INDICATIONS: Atrial fibrillation. PROCEDURE: After explaining the procedure to the patient as well as its risks and the complications, blood pressure, heart rate, O2 saturation was monitored, the transesophageal cardiac echocardiogram was performed. Following that, a synchronized biphasic cardioversion using 75 joules was performed with sikh normal sinus rhythm. There was multiple PACs. There was no immediate complication. The patient will be started on flecainide trying to maintain sinus mechanism. SARAHI / IJN: [id number] /
[2020-11-13 12:51] VITALS: BP 128/62; PULSE 72
[2020-11-13] MEDS ORDERED: metFORMIN 500 MG TAB PO SCH (17:30)
[2020-11-13] MEDS ORDERED: METOPROLOL TARTRATE 25 MG TAB PO SCH (21:00)
[2020-11-13] MEDS ORDERED: APIXABAN 5 MG TAB PO SCH (21:00)
[2020-11-14] MEDS ORDERED: PANTOPRAZOLE 40 MG TABLET PO SCH (07:30)
[2020-11-14] MEDS ORDERED: CHOLECALCIFEROL 25 MCG (1000 IU) TABLET PO SCH (09:00)
[2020-11-14] MEDS ORDERED: MULTIVITAMINS, THERA 1 EACH TAB PO SCH (09:00)
[2020-11-14] MEDS ORDERED: CYANOCOBALAMIN 500 MCG TAB PO SCH (09:00)
[2020-11-14] MEDS ORDERED: FOLIC ACID 1 MG TAB PO SCH (09:00)
[2020-11-14] MEDS ORDERED: GABAPENTIN 300 MG CAP PO SCH (09:00)
[2020-11-14] MEDS ORDERED: amLODIPine 5 MG TAB PO SCH (09:00)
[2020-11-14] MEDS ORDERED: predniSONE 10 MG TAB PO SCH (09:00)
[2020-11-17] MEDS ORDERED: metHOTREXate sodium 2.5 MG TAB PO SCH (09:00)
== END 2020-11-13 12:15 | disposition home or self-care (01) ==
LOC: CATHCVL 06:13
PROVIDERS: ATTEND Internal Medicine Interventional Cardiology
DX: I48.91 Unspecified atrial fibrillation (principal); I08.0 Rheumatic disorders of both mitral and aortic valves; I27.20 Pulmonary hypertension, unspecified; I10 Essential (primary) hypertension; Z87.891 Personal history of nicotine dependence; E11.9 Type 2 diabetes mellitus without complications; Z86.73 Personal history of transient ischemic attack (TIA), and cerebral infarction without residual deficits; R53.83 Other fatigue; F32.9 Major depressive disorder, single episode, unspecified; Z79.01 Long term (current) use of anticoagulants
CPT/HCPCS: 93312; 93320; 93325; 92960; J2250; J2001; J3010; J2704

== ENCOUNTER 2020-11-28 00:04 | Emergency (ER) | payer MEDICARE, OTHER ==
[2020-11-28 00:11] VITALS: TEMP 98.4
[2020-11-28] MEDS ORDERED: KETOROLAC 15 MG/ML 1 ML VIAL IM STA (01:03)
[2020-11-28] MEDS ORDERED: ORPHENADRINE 30 MG/ML 2 ML VIAL IM STA (01:03)
[2020-11-28] MEDS ORDERED: MORPHINE SULFATE 4 MG/ML SYRINGE IM STA (01:09)
[2020-11-28] MEDS ORDERED: HYDROmorphone 0.5 MG/0.5 ML SYRINGE IM STA (03:27)
[2020-11-28 03:37] VITALS: RESP 18
[2020-11-28 03:38] VITALS: BP 149/111; PULSE 98
--- NOTE | 2020-11-28 04:17 | ED ---
Back Pain HPI - General Chief Complaint: Back Pain/Injury Stated Complaint: Back Pain Time Seen by Provider: 11/28/20 00:06 Source: patient, EMS Limitations: no limitations - History of Present Illness Initial Comments: This patient is a 70-year-old woman who complains of right low back pain that radiates to her right leg. She states that it had come on early and has been getting worse over the course of the day. She states she does have history of spinal stenosis and chronic low back pain. She states that this feels different than her usual pain in that it radiates to the leg. Patient denies loss of bladder or bowel function. No saddle anesthesia. No trauma to the back today. No fever or chills. MD Complaint: back pain Onset/Timin -: days(s) Similar Symptoms Previously: Yes Place: home Radiation: right leg Severity: severe Quality: burning, aching Consistency: constant Improves With: immobilization Worsens With: movement, sitting upright Associated Symptoms: denies other symptoms - Related Data Home Medications Medication Instructions Recorded Confirmed Cholecalciferol [Vitamin D3 (25 1,000 unit PO DAILY 06/24/19 11/21/20 Mcg = 1000 Iu)] Folic Acid 1 mg PO DAILY 06/24/19 11/21/20 Nitroglycerin Sl Tabs [Nitrostat] 0.4 mg PO Q5M PRN 06/24/19 11/21/20 amLODIPine [Norvasc] 5 mg PO DAILY 06/24/19 11/21/20 metHOTREXate sodium [Methotrexate] 15 mg PO MO 06/24/19 11/21/20 HYDROcodone/APAP 7.5-325MG [[place] 1 tab PO Q8H PRN 08/07/20 11/21/20 7.5-325] Omeprazole 20 mg PO DAILY 08/07/20 11/21/20 Gabapentin [Neurontin] 300 mg PO DAILY 11/12/20 11/21/20 Multivitamin [Multivitamins Adult 1 each PO DAILY 11/12/20 11/21/20 Gummies] Orencia Infusion 100 Mg 100 mg IV Q30D 11/12/20 11/21/20 Vitamin B-12 (Unknown Dose) 1 tab PO DAILY 11/12/20 11/21/20 Vitamin C/Biotin [Hair, Skin and 1 tab PO DAILY 11/12/20 11/21/20 Nails Chew] Previous Rx's Medication Instructions Recorded Apixaban [Eliquis] 5 mg PO BID #0 tab 06/27/19 Metoprolol Tartrate [Lopressor] 25 mg PO BID tab 06/27/19 metFORMIN HCL [Glucophage] 500 mg PO BID #60 tab 08/08/20 Flecainide [Tambocor] 50 mg PO Q12HR #180 tab 11/13/20 Methocarbamol [Robaxin-750] 750 mg PO TID PRN #30 tablet 11/28/20 predniSONE 60 mg PO DAILY #30 tab 11/28/20 Allergies Allergy/AdvReac Type Severity Reaction Status Date / Time No Known Allergies Allergy Verified 11/21/20 11:19 Review of Systems ROS Statement: Those systems with pertinent positive or pertinent negative responses have been documented in the HPI. ROS Other: All systems not noted in ROS Statement are negative. 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 Spinal stenosis. Poss thyroid issue. Varicose veins, Edema legs - states doesn't take diuretic d/t freq urination. History of Any Multi-Drug Resistant Organisms: None Reported Past Surgical History: Cholecystectomy, Heart Catheterization, Hernia Repair, Orthopedic Surgery Additional Past Surgical History / Comment(s): removed bone in left foot. Umbilical hernia ,CARDIOVERSION Past Anesthesia/Blood Transfusion Reactions: No Reported Reaction Past Psychological History: Anxiety, Depression Smoking Status: Former smoker - Past Family History Father History Unknown: Yes Sister(s) Family Medical History: Cancer Additional Family Medical History / Comment(s): breast cancer Mother Family Medical History: Deep Vein Thrombosis (DVT) General Exam Limitations: no limitations General appearance: alert, in no apparent distress Head exam: Present: atraumatic, normocephalic Eye exam: Present: normal appearance. Absent: scleral icterus, conjunctival injection Neck exam: Present: normal inspection, full ROM Respiratory exam: Present: normal lung sounds bilaterally. Absent: respiratory distress, wheezes, rales, rhonchi, stridor Cardiovascular Exam: Present: regular rate, normal rhythm, normal heart sounds. Absent: systolic murmur, diastolic murmur, rubs, gallop GI/Abdominal exam: Present: soft. Absent: distended, tenderness, guarding, rebound, rigid, mass Extremities exam: Present: normal inspection, normal capillary refill. Absent: pedal edema, calf tenderness Back exam: Present: normal inspection, paraspinal tenderness. Absent: CVA tenderness (R), CVA tenderness (L), vertebral tenderness Neurological exam: Present: alert, reflexes normal. Absent: motor sensory deficit Skin exam: Present: warm, dry, intact, normal color. Absent: rash Course Vital Signs 11/28/20 11/28/20 11/28/20 00:05 00:11 02:11 Temperature 98.4 F Pulse Rate 74 94 88 Respiratory 20 20 18 Rate Blood Pressure 162/136 159/118 137/107 O2 Sat by Pulse 99 98 96 Oximetry 11/28/20 03:00 Temperature Pulse Rate 98 Respiratory 18 Rate Blood Pressure 149/111 O2 Sat by Pulse 97 Oximetry Medical Decision Making - Medical Decision Making Patient is 70-year-old woman with history and physical consistent with lumbar radiculopathy. She is feeling better following analgesic and would like to go home. She states that she does need to take a shower and return for an electrophysiologic study related to her atrial fibrillation. She deftly wants to go and does not want stay. We discussed appropriate further care and follow- up, as well as return parameters Disposition Clinical Impression: Sciatica Disposition: HOME SELF-CARE Condition: Good Instructions (If sedation given, give patient instructions): Acute Low Back Pain (ED) Prescriptions: predniSONE 60 mg PO DAILY #30 tab Methocarbamol [Robaxin-750] 750 mg PO TID PRN #30 tablet PRN Reason: pain Is patient prescribed a controlled substance at d/c from ED?: No Referrals: Steve Dennis MD [Primary Care Provider] - 1-2 days
== END 2020-11-28 04:35 | disposition home or self-care (01) ==
LOC: EC 00:04
DX: M54.41 Lumbago with sciatica, right side (principal); I11.0 Hypertensive heart disease with heart failure; I50.9 Heart failure, unspecified; I48.91 Unspecified atrial fibrillation; E11.9 Type 2 diabetes mellitus without complications; M06.9 Rheumatoid arthritis, unspecified; Z86.73 Personal history of transient ischemic attack (TIA), and cerebral infarction without residual deficits; F32.9 Major depressive disorder, single episode, unspecified; F41.9 Anxiety disorder, unspecified; Z87.891 Personal history of nicotine dependence; Z79.01 Long term (current) use of anticoagulants; Z79.84 Long term (current) use of oral hypoglycemic drugs
CPT/HCPCS: 99283 ×2; 96372 ×4; 92960; 80048; J2270; J2360; J2704; J1170

== ENCOUNTER 2020-11-28 06:08 | Day surgery (SDC) | payer MEDICARE, OTHER ==
[2020-11-21 11:28] VITALS: BMI 33.7
[2020-11-28] MEDS ORDERED: SODIUM CHLORIDE 0.9% 500 ML 500 ML IV ONE (06:35)
[2020-11-28 06:48] LABS: Glucose,Whole Blood 171 mg/dL (75-99)
[2020-11-28 06:59] LABS: Calcium 10.1 mg/dL (8.4-10.2); Potassium 3.8 mmol/L (3.5-5.1)
[2020-11-28] MEDS ORDERED: PROPOFOL 10 MG/ML 20 ML VIAL IV ONE (07:12)
[2020-11-28] MEDS ORDERED: IV FLUID CONTINUATION 500 ML IV ONE ×2 (07:25)
[2020-11-28] MEDS ORDERED: SODIUM CHLORIDE 0.9% 1,000 ML IV SCH (07:30)
[2020-11-28 07:42] VITALS: TEMP 97.5
[2020-11-28] MEDS ORDERED: METOPROLOL TARTRATE 50 MG TAB PO STA (07:43)
[2020-11-28 08:45] VITALS: RESP 18
[2020-11-28] MEDS ORDERED: METOPROLOL TARTRATE 25 MG TAB PO SCH (09:00)
[2020-11-28] MEDS ORDERED: metFORMIN 500 MG TAB PO SCH (09:00)
[2020-11-28] MEDS ORDERED: NON FORMULARY DRUG (Omeprazole [Omeprazole] 20 MG Capsule.Dr) PO SCH (09:00)
[2020-11-28] MEDS ORDERED: GABAPENTIN 300 MG CAP PO SCH (09:00)
[2020-11-28] MEDS ORDERED: FLECAINIDE 50 MG TAB PO SCH (09:00)
[2020-11-28] MEDS ORDERED: amLODIPine 5 MG TAB PO SCH (09:00)
[2020-11-28] MEDS ORDERED: APIXABAN 5 MG TAB PO SCH (09:00)
[2020-11-28 09:54] VITALS: BP 126/72; PULSE 70
--- NOTE | 2020-11-28 11:02 | PCN ---
PROCEDURE NOTE CARDIOVERSION PROCEDURE NOTE: INDICATION: Atrial fibrillation. PROCEDURE DESCRIPTION: After explaining the procedure to the patient, its risks and the complications, heart rate, blood pressure and oxygen saturation were monitored. She received sedation per the anesthesia department. A synchronized biphasic cardioversion using 75 joules was successful in restoring sinus mechanism. Patient went into atrial fibrillation shortly after. She had another cardioversion with 75 synchronized joules, with congregation of sinus mechanism that persisted. She had multiple PACs. There was no immediate complication. MMODL / IJN: [id number] /
[2020-12-01] MEDS ORDERED: metHOTREXate sodium 2.5 MG TAB PO SCH (07:28)
== END 2020-11-28 09:48 | disposition home or self-care (01) ==
LOC: CATHCVL 06:08
PROVIDERS: ATTEND Internal Medicine Interventional Cardiology
DX: I48.11 Longstanding persistent atrial fibrillation (principal); E11.9 Type 2 diabetes mellitus without complications; E78.2 Mixed hyperlipidemia; K21.9 Gastro-esophageal reflux disease without esophagitis; I11.0 Hypertensive heart disease with heart failure; I50.9 Heart failure, unspecified; F32.9 Major depressive disorder, single episode, unspecified; I25.10 Atherosclerotic heart disease of native coronary artery without angina pectoris; I69.954 Hemiplegia and hemiparesis following unspecified cerebrovascular disease affecting left non-dominant side; Z90.49 Acquired absence of other specified parts of digestive tract; Z79.01 Long term (current) use of anticoagulants; Z79.82 Long term (current) use of aspirin; Z79.899 Other long term (current) drug therapy; Z79.52 Long term (current) use of systemic steroids
CPT/HCPCS: 92960; 80048; J2704

== ENCOUNTER → 2021-05-23 | Outpatient (CLI) | payer MEDICARE, OTHER ==
[2021-05-23 09:30] LABS: HCT 44.5 % (34.0-46.0); HGB 13.9 gm/dL (11.4-16.0); Hypochromasia Moderate; MCH 28.1 pg (25.0-35.0); MCHC 31.2 g/dL (31.0-37.0); MCV 90.1 fL (80.0-100.0); Mean Platelet Volume 6.9; Platelet Count 324 k/uL (150-450); RBC 4.94 m/uL (3.80-5.40); RDW 15.5 % (11.5-15.5); WBC 7.1 k/uL (3.8-10.6)
[2021-05-23 09:42] LABS: Magnesium 1.5 mg/dL (1.6-2.3); Potassium 3.8 mmol/L (3.5-5.1)
== END | disposition home or self-care (01) ==
LOC: LABPAT 09:07
PROVIDERS: ATTEND Internal Medicine Clinical Cardiac Electrophysiology
DX: Z01.812 Encounter for preprocedural laboratory examination (principal); I48.3 Typical atrial flutter; Z20.822 Contact with and (suspected) exposure to COVID-19
CPT/HCPCS: 80051; 82565; 83735; 84520; 85027; 87635

== ENCOUNTER 2021-05-25 09:13 | Day surgery (SDC) | payer MEDICARE, OTHER ==
[2021-05-25] MEDS ORDERED: SODIUM CHLORIDE 0.9% 1,000 ML IV ONE ×4 (09:20→16:55)
[2021-05-25 09:55] LABS: Glucose,Whole Blood 143 mg/dL (75-99)
[2021-05-25] MEDS ORDERED: LIDOCAINE 1% INJ 10MG/ML (20 ML MDV) ONE ×2 (10:43→11:00)
[2021-05-25] MEDS ORDERED: fentaNYL (PF) 50 MCG/ML 2 ML AMP ONE (11:00)
[2021-05-25] MEDS ORDERED: PHENYLEPHRINE-0.9% NACL SYG 1,000 MCG/10 ML SYRINGE ONE (11:00)
[2021-05-25] MEDS ORDERED: SUCCINYLCHOLINE CHLORIDE 100 MG/5 ML SYR IV ONE (11:00)
[2021-05-25] MEDS ORDERED: MIDAZOLAM 2 MG/2 ML VIAL ONE (11:00)
[2021-05-25] MEDS ORDERED: FUROSEMIDE 10 MG/ML 2 ML VIAL ONE (11:00)
[2021-05-25] MEDS ORDERED: PROPOFOL 10 MG/ML 20 ML VIAL IV ONE (11:00)
[2021-05-25] MEDS ORDERED: HEPARIN SODIUM,PORCINE 10,000 UNIT/ML 1 ML VIAL ONE (11:00)
--- NOTE | 2021-05-25 11:27 | P.HPCAR ---
History of Present Illness This is Dr. Calvo dictating an H/P on this patient The patient was interviewed and examined IMPRESSION / ASSESSMENT: Atrial fibrillation, persistent associated with shortness of breath with minimal activities Failed electrical cardioversion Mild global hypokinesis ejection fraction 45% with a mildly dilated left atrium Mild MR and TR Increased LV mass in the past, likely tachycardia mediated/atrial fibrillation mediated current myopathy at this time Nonobstructive CAD Type 2 diabetes Hypertension with left ventricle hypertrophy PLAN: Proceed with A. fib ablation Continue ELIQUIS HPI Patient continues to complain shortness of breath with minimal activity She is also mildly short of breath at rest She is anxious about the procedure today No syncope ROS: No fever chills or rigors, no cough, phlegm or expectoration, no nausea, vomiting or diarrhea, no hematuria, dysuria, no musculoskeletal complaints, no strokes or seizures, no skin lesions. EXAMINATION: Afebrile 98.2F pulse rate 190 beats a minute, blood pressure 164/89 mmHg pulse ox 96% Tachycardic a regular rhythm Lungs decreased breath sounds bilaterally JVD difficult to assess No lower extremity edema REVIEW OF LABS, ECG & MEDICAL DATA White count 7.1 thousand Hemoglobin 13.9 Platelet count 324,000 ESR 20 Sodium 142, potassium 3.8, BUN 12 and creatinine 0.83 Physical Exam Vitals: Vital Signs Temp Pulse Resp BP BP Pulse Ox 05/25/21 09:47 98.2 F 119 H 14 171/116 164/89 96 Intake and Output 05/24/21 05/25/21 05/25/21 22:59 06:59 14:59 Intake Total 200 Balance 200 Intake: IV 200 Other: Weight 99.5 kg Past Medical History Past Medical History: Atrial Fibrillation, Heart Failure, CVA/TIA, Diabetes Mellitus, GERD/Reflux, Hypertension, Rheumatoid Arthritis (RA) Additional Past Medical History / Comment(s): 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 Spinal stenosis. Poss thyroid issue. Varicose veins, Edema legs - states doesn't take diuretic d/t freq urination. History of Any Multi-Drug Resistant Organisms: None Reported Past Surgical History: Cholecystectomy, Heart Catheterization, Hernia Repair, Orthopedic Surgery Additional Past Surgical History / Comment(s): removed bone in left foot. Umbilical hernia ,CARDIOVERSION Past Anesthesia/Blood Transfusion Reactions: No Reported Reaction Past Psychological History: Anxiety, Depression Smoking Status: Former smoker - Past Family History Father History Unknown: Yes Sister(s) Family Medical History: Cancer Additional Family Medical History / Comment(s): breast cancer Mother Family Medical History: Deep Vein Thrombosis (DVT) Physical Examination Vital Signs Temp Pulse Resp BP BP Pulse Ox 05/25/21 09:47 98.2 F 119 H 14 171/116 164/89 96 Intake and Output 05/24/21 05/25/21 05/25/21 22:59 06:59 14:59 Intake Total 200 Balance 200 Intake: IV 200 Other: Weight 99.5 kg Results Current Medications Generic Name Dose Route Start Last Admin Trade Name Freq PRN Reason Stop Dose Admin Sodium Chloride 1,000 mls @ 50 mls/hr 05/25/21 09:07 Saline 0.9% IV 06/24/21 09:08 .Q20H EMMY Lactated Ringer's 1,000 mls @ 20 mls/hr 05/25/21 09:07 Lactated Ringers IV 06/24/21 09:08 .Q24H EMMY Intake and Output 05/24/21 05/25/21 05/25/21 22:59 06:59 14:59 Intake Total 200 Balance 200 Intake: IV 200 Other: Weight 99.5 kg Patient Weight 05/26/21 06:59 Weight 99.5 kg
[2021-05-25] MEDS ORDERED: HEPARIN SOD,PORK IN 0.45% NACL 25,000 UNIT in 0.45% NACL 1 250ML.BAG IV ONE (11:46)
[2021-05-25] MEDS ORDERED: LIDOCAINE 1% INJ 10MG/ML (20 ML MDV) SQ ONE (11:48)
[2021-05-25] MEDS ORDERED: IOPAMIDOL-370 100ML BTL INJ ONE (14:00)
[2021-05-25] MEDS ORDERED: ACETAMINOPHEN IV (For NPO) 1,000 MG in EMPTY BAG 1 BAG IVPB ONE (14:07)
[2021-05-25] MEDS ORDERED: ACETAMINOPHEN TAB 325 MG TAB PO PRN (14:07)
[2021-05-25] MEDS ORDERED: methocarbamoL 750 MG TAB PO PRN (14:08)
--- NOTE | 2021-05-25 14:23 | P.EPPROC ---
- EP Procedure Note Electrophysiology Procedure Note: PROCEDURE A. fib ablation, PVI and roofline DIAGNOSIS Persistent Atrial fibrillation, symptomatic, refractory to therapy RESULT No left atrial appendage mass seen on intracardiac echo Large pulmonary veins Successful A. fib ablation/pulmonary vein isolation of all veins using cryo-ablation Complete entrance block in all 4 veins confirmed Successful ablation along the left atrial roof, roofline Transient phrenic nerve injury, recovered Esophageal deflection YES Electrical cardioversion with a synchronized shock across the chest YES Immediate recurrence of atrial fibrillation within 60 seconds, frequent PACs noted prior to recurrence Right ventricular hypertrophy and intracardiac echo Severe left ventricle hypertrophy on intracardiac echo PROCEDURE DETAILS Patient was brought to the EP lab in a fasting state after obtaining written informed consent. Procedure performed under general anesthesia Esophagus was intubated. Esophageal temperature monitoring with circa catheter. Esophageal deflection with an endoscope to avoid hypothermia of the esophagus. After initial muscle relaxant use, muscle relaxants were not given thereafter in order to assess phrenic nerve during procedure. Patient prepped and draped as per protocol Cryo ablation-set up with standard preparation of the cryoablation tools done. Femoral Venous access obtained on the right and left groins and sheaths placed Diagnostic catheters for the high right atrium, phrenic nerve stimulation and pacing, His bundle, coronary sinus placed Intracardiac echo catheter placed. Long sheath placed in the right atrium Left and right transseptal catheterization performed under intracardiac echo guidance. Intravenous heparin with aCT above 300 Later, catheter positioning and balloon positioning in the left atrium and pulmonary veins, under intracardiac echo guidance Diagnostic EP study with coronary sinus pacing and recording Baseline measurements: Transseptal catheterization performed RA pressure 18/10/14 LA pressure 50/9/16 Transseptal catheterization performed with standard sheath. The cryoablation sheath was then placed with an over the wire exchange without any acute complications. The cryoablation balloon was placed in the office of each pulmonary vein and all 4 pulmonary veins were isolated. IV dye was injected to confirm occlusion. Goal: achieve complete occlusion of the pulmonary vein, achieve -30 degrees C at 30 seconds and achieve -40 degrees C at 60 seconds and a time to effect of less than 60 seconds. If not, the balloon was repositioned to obtain this result After completion of Cryoblation with durations from 180-240 seconds, entrance block was confirmed with the Attain circular catheter in a roving fashion around the antrum of the pulmonary veins Phrenic nerve pacing was performed from the SVC, right innominate vein area and diaphragm voltage was monitored. Diaphragmatic contractions were also monitored manually for strength of contraction. At the end of the procedure the Achieve catheter was once again used to check for entrance block Phrenic nerve paresis. Right superior pulmonary vein isolation. However this recovered Right phrenic nerve was completely isolated prior to that A roofline was made from the left superior to the right superior pulmonary vein. A complete line was made with contiguous ablations Phrenic nerve stimulation was performed to confirm diaphragmatic stimulation the end of the procedure Cine fluoroscopy was performed at the very end of the procedure to confirm movement of both diaphragms with inspiration and expiration At the end of the procedure the patient was extubated Venous sheaths were removed and hemostasis assured with a Vascade closure device PROCEDURES PERFORMED Diagnostic EP study CS pacing and recording Left and right transseptal catheterization Catheter the mapping of the tachycardia Intracardiac echocardiography Pulmonary vein isolation with transseptal and comprehensive EPS, [id number] Left atrial roof line, +[id number] Electrical cardioversion with a synchronized shock across the chest [id number]
[2021-05-25] MEDS ORDERED: DEXTROSE 5% IN WATER 100 ML with AMIODARONE 150 MG IV ONE ×2 (14:40→15:48)
[2021-05-25] MEDS ORDERED: AMIODARONE 360 MG in DEXTROSE 5% IN WATER 200 ML IV ONE ×6 (14:40→16:18)
[2021-05-25] MEDS ORDERED: ACETAMINOPHEN IV (For NPO) 1,000 MG/100 ML VIAL IVPB ONE (16:18)
[2021-05-25] MEDS ORDERED: HYDROmorphone 0.5 MG/0.5 ML SYRINGE IVP ONE (16:28)
[2021-05-25 17:13] LABS: Glucose,Whole Blood 168 mg/dL (75-99)
[2021-05-25] MEDS: AMIODARONE 200 MG TAB PO SCH (18:16)
[2021-05-25] MEDS: hydrALAZINE HCL 25 MG TAB PO SCH ×2 (18:18→20:45)
[2021-05-25 20:25] LABS: Glucose,Whole Blood 162 mg/dL (75-99)
[2021-05-25] MEDS: APIXABAN 5 MG TAB PO SCH (20:45)
[2021-05-25] MEDS: METOPROLOL TARTRATE 50 MG TAB PO SCH (20:45)
[2021-05-25] MEDS: HYDROcodone/APAP 7.5-325MG 1 EACH TAB PO PRN (20:45)
[2021-05-25] MEDS: AMIODARONE 450 MG in DEXTROSE 5% IN WATER 250 ML IV SCH ×2 (20:56)
[2021-05-26] MEDS: HYDROcodone/APAP 7.5-325MG 1 EACH TAB PO PRN (04:04)
[2021-05-26 06:18] LABS: Glucose,Whole Blood 149 mg/dL (75-99)
[2021-05-26] MEDS ORDERED: PANTOPRAZOLE 40 MG TABLET PO SCH (07:30)
[2021-05-26] MEDS: AMIODARONE 200 MG TAB PO SCH (08:03)
[2021-05-26] MEDS: hydrALAZINE HCL 25 MG TAB PO SCH (08:03)
[2021-05-26] MEDS: METOPROLOL TARTRATE 50 MG TAB PO SCH (08:03)
[2021-05-26] MEDS: APIXABAN 5 MG TAB PO SCH (08:03)
[2021-05-26] MEDS ORDERED: GABAPENTIN 300 MG CAP PO SCH (09:00)
[2021-05-26] MEDS: AMIODARONE 450 MG in DEXTROSE 5% IN WATER 250 ML IV SCH ×2 (10:39)
[2021-05-26 11:35] VITALS: BP 121/82; PULSE 56; RESP 18; TEMP 97.7
[2021-05-26 11:46] LABS: Glucose,Whole Blood 149 mg/dL (75-99)
--- NOTE | 2021-05-26 19:15 | P.DS ---
Providers Attending physician: Vicente Calvo Primary care physician: [facility] Course: Patient is sitting up comfortably in a chair Breath sounds are reduced bilaterally, no rhonchi or crackles No JVD She does not appear to be as short of breath as she was preoperatively She remains in atrial fibrillation with heart rates in the 70s, well controlled On metoprolol, higher dose of 50 mg twice daily Blood pressure 121/82 mmHg No murmurs over the precordium Impression Persistent atrial fibrillation Status post successful pulmonary vein isolation and left atrial roof ablation Immediate recurrence of atrial fibrillation following electrical cardioversion Severe biventricular hypertrophy Suggest Oral amiodarone 200 mg by mouth daily Oral Loading for [address] Fatima thereafter Assessment for biventricular hypertrophy as outpatient. Patient go home today Incentive spirometry Minimizing alcohol intake/complete avoidance Plan - Discharge Summary Discharge Rx Participant: No New Discharge Prescriptions: No Action Folic Acid 1 mg PO DAILY Cholecalciferol [Vitamin D3 (25 Mcg = 1000 Iu)] 1,000 unit PO DAILY amLODIPine [Norvasc] 5 mg PO DAILY Nitroglycerin Sl Tabs [Nitrostat] 0.4 mg PO Q5M PRN PRN Reason: Chest Pain Apixaban [Eliquis] 5 mg PO BID #0 tab Metoprolol Tartrate [Lopressor] 25 mg PO BID tab HYDROcodone/APAP 7.5-325MG [[place] 7.5-325] 1 tab PO Q8H PRN PRN Reason: Pain Vitamin B-12 (Unknown Dose) 1 tab PO DAILY Multivitamin [Multivitamins Adult Gummies] 1 each PO DAILY Vitamin C/Biotin [Hair, Skin and Nails Chew] 1 tab PO DAILY Orencia Infusion 100 Mg 100 mg IV Q30D Methocarbamol [Robaxin-750] 750 mg PO TID PRN #30 tablet PRN Reason: pain hydrALAZINE HCL 25 mg PO TID Omeprazole 20 mg PO DAILY metFORMIN HCL [Glucophage] 500 mg PO BID #60 tab Gabapentin [Neurontin] 300 mg PO DAILY Discharge Medication List Cholecalciferol [Vitamin D3 (25 Mcg = 1000 Iu)] 1,000 unit PO DAILY 06/24/19 [History] Folic Acid 1 mg PO DAILY 06/24/19 [History] Nitroglycerin Sl Tabs [Nitrostat] 0.4 mg PO Q5M PRN 06/24/19 [History] amLODIPine [Norvasc] 5 mg PO DAILY 06/24/19 [History] Apixaban [Eliquis] 5 mg PO BID #0 tab 06/27/19 [Rx] Metoprolol Tartrate [Lopressor] 25 mg PO BID tab 06/27/19 [Rx] HYDROcodone/APAP 7.5-325MG [[place] 7.5-325] 1 tab PO Q8H PRN 08/07/20 [History] Omeprazole 20 mg PO DAILY 08/07/20 [History] metFORMIN HCL [Glucophage] 500 mg PO BID #60 tab 08/08/20 [Rx] Gabapentin [Neurontin] 300 mg PO DAILY 11/12/20 [History] Multivitamin [Multivitamins Adult Gummies] 1 each PO DAILY 11/12/20 [History] Orencia Infusion 100 Mg 100 mg IV Q30D 11/12/20 [History] Vitamin B-12 (Unknown Dose) 1 tab PO DAILY 11/12/20 [History] Vitamin C/Biotin [Hair, Skin and Nails Chew] 1 tab PO DAILY 11/12/20 [History] Methocarbamol [Robaxin-750] 750 mg PO TID PRN #30 tablet 11/28/20 [Rx] hydrALAZINE HCL 25 mg PO TID 05/25/21 [History] Follow up Appointment(s)/Referral(s): Jeri Fatima MD [STAFF PHYSICIAN] - 1 Week (office will call you with follow up appointment) Patient Instructions/Handouts: Cardiac Ablation (DC) Activity/Diet/Wound Care/Special Instructions: HOLD NORVASC until follow up with Dr. Fatima Post EP study - Ablation instructions 1. Keep access sites dry for 2 days. 2. No heavy lifting or straining for 2 days. 3. Avoid bending the hips repeatedly for 2 days. 4. You may go up and down stairs slowly Call if the following is noted 1. Bleeding, increasing swelling or pain at the access sites. 2. Increasing chest discomfort, especially upon taking a deep breath. 3. Increasing shortness of breath, at rest or with exertion. 4. Undue cough / phlegm 5. Difficulty or pain while swallowing. 6. Pain or change in color in the extremities. 7. Fever, chills, rigors. 8. Increasing headache or neurologic symptoms. 9. Dizziness, fainting, palpitations Discharge Disposition: HOME SELF-CARE
--- NOTE | 2021-05-26 19:18 | P.PRLE ---
RE: Shanta Marquez Dear Ana Shanta Marquez underwent successful pulmonary vein isolation and ablation of the left atrial roof Despite that she remained in atrial fibrillation Intracardiac echocardiography revealed severe left ventricular Hypertrophy and right ventricular hypertrophy At this time I would recommend oral amiodarone and electrical cardioversion after one month Outpatient noninvasive assessment for severe biventricular hypertrophy with Dr. Fatima She will continue anticoagulation and I will increase the dose of metoprolol to 50 mg twice daily Heart rates are well controlled Thank you for entrusting me with the care of the patient Warm regards Sincerely Vicente Calvo
[2021-05-27] MEDS ORDERED: metFORMIN 500 MG TAB PO SCH (17:30)
== END 2021-05-26 14:36 | disposition home or self-care (01) ==
LOC: CATHEP 09:13 → 3SCARD 14:00 → CATHEP 05-26 14:36
PROVIDERS: ATTEND Internal Medicine Clinical Cardiac Electrophysiology
DX: I48.19 Other persistent atrial fibrillation (principal); I42.9 Cardiomyopathy, unspecified; I48.3 Typical atrial flutter; E11.9 Type 2 diabetes mellitus without complications; I10 Essential (primary) hypertension; I51.7 Cardiomegaly; I25.10 Atherosclerotic heart disease of native coronary artery without angina pectoris; M06.9 Rheumatoid arthritis, unspecified; Z87.891 Personal history of nicotine dependence; Z97.2 Presence of dental prosthetic device (complete) (partial); I69.354 Hemiplegia and hemiparesis following cerebral infarction affecting left non-dominant side; K21.9 Gastro-esophageal reflux disease without esophagitis; R35.0 Frequency of micturition; M48.00 Spinal stenosis, site unspecified; Z90.49 Acquired absence of other specified parts of digestive tract; Z98.890 Other specified postprocedural states; F41.9 Anxiety disorder, unspecified; F32.A Depression, unspecified; Z80.3 Family history of malignant neoplasm of breast; Z82.49 Family history of ischemic heart disease and other diseases of the circulatory system; Z79.01 Long term (current) use of anticoagulants; Z79.84 Long term (current) use of oral hypoglycemic drugs; Z79.891 Long term (current) use of opiate analgesic; Z79.899 Other long term (current) drug therapy
CPT/HCPCS: 92960; 93656; 93657; C1894 ×2; C1769 ×4; C1760; C1730 ×2; C1759; C1893; C1733; C1766; J2250; J1644 ×2; J1940; J0282; J2001; J3010; J0131; J2370; J0330; J2704; J1170; Q9967

== ENCOUNTER → 2021-07-27 | Day surgery (SDC) | payer MEDICARE, OTHER ==
[2021-07-24 09:39] VITALS: BMI 36.1
[~2021-07-27] MED LIST changes: -LACTATED RINGERS 1,000 ML IV SCH; +PROPOFOL 10 MG/ML 20 ML VIAL IV ONE; +SODIUM CHLORIDE 0.9% 1,000 ML BAG ONE; -SODIUM CHLORIDE 0.9% 1,000 ML IV SCH
[2021-07-27 07:22] LABS: Calcium 9.9 mg/dL (8.4-10.2); Potassium 3.4 mmol/L (3.5-5.1)
--- NOTE | 2021-07-27 08:10 | PCN ---
PROCEDURE NOTE CARDIOVERSION PROCEDURE NOTE: INDICATION: Atrial fibrillation. PROCEDURE DESCRIPTION: After explaining the procedure to the patient, its risks and complications, blood pressure, heart rate and O2 saturation were monitored. Sedation state was obtained by the anesthesia department. Synchronized biphasic cardioversion using 200 joules was performed with holiness of normal sinus rhythm. There was no immediate complication. SARAHI / MORISN: [id number] /
== END ==
LOC: CATHCVL 05:52
PROVIDERS: ATTEND Internal Medicine Interventional Cardiology
DX: I48.11 Longstanding persistent atrial fibrillation (principal); I25.10 Atherosclerotic heart disease of native coronary artery without angina pectoris; I10 Essential (primary) hypertension; E78.2 Mixed hyperlipidemia; E11.9 Type 2 diabetes mellitus without complications; I69.954 Hemiplegia and hemiparesis following unspecified cerebrovascular disease affecting left non-dominant side; K21.9 Gastro-esophageal reflux disease without esophagitis; Z20.822 Contact with and (suspected) exposure to COVID-19; Z79.899 Other long term (current) drug therapy; Z79.01 Long term (current) use of anticoagulants; Z79.84 Long term (current) use of oral hypoglycemic drugs; Z97.2 Presence of dental prosthetic device (complete) (partial)
CPT/HCPCS: 92960; 80048; 87635; J2704

== ENCOUNTER 2022-01-24 10:24 | Inpatient (IN) | payer MEDICARE, OTHER ==
--- NOTE | 2022-01-24 10:33 | ED ---
General Adult HPI - General Chief complaint: Chest Pain Stated complaint: AFIB Time Seen by Provider: 01/24/22 10:25 Source: patient, EMS, RN notes reviewed, old records reviewed Mode of arrival: ambulatory Limitations: no limitations - History of Present Illness Initial comments: This is a 71-year-old female presents emergency Department with a past medical history significant for diabetes hypertension as well as congestive heart failure atrial fibrillation. Patient is already on eliquis. Patient comes in today because she states the last 3 days she's had difficulty breathing. She also is complaining of urinary frequency and incontinence. Patient states she doesn't believe she has a fever. Patient states she has occasional cough. Patient states she still taking diuretics. Patient doesn't notice increased swelling in her legs. Patient states she's been having intermittent chest pain over the last 2 days. Patient denies any lightheadedness or dizziness. Patient states overall she does feel little bit weaker. Patient denies any abdominal pain patient's nausea vomiting diarrhea. - Related Data Home Medications Medication Instructions Recorded Confirmed Cholecalciferol [Vitamin D3 (25 1,000 unit PO DAILY 06/24/19 07/24/21 Mcg = 1000 Iu)] Folic Acid 1 mg PO DAILY 06/24/19 07/24/21 Nitroglycerin Sl Tabs [Nitrostat] 0.4 mg PO Q5M PRN 06/24/19 07/24/21 amLODIPine [Norvasc] 5 mg PO DAILY 06/24/19 07/24/21 HYDROcodone/APAP 7.5-325MG [Tye 1 tab PO Q8H PRN 08/07/20 07/24/21 7.5-325] Omeprazole 20 mg PO DAILY 08/07/20 07/24/21 Gabapentin [Neurontin] 300 mg PO DAILY 11/12/20 07/24/21 Multivitamin [Multivitamins Adult 1 each PO DAILY 11/12/20 07/24/21 Gummies] Orencia Infusion 100 Mg 100 mg IV Q30D 11/12/20 07/24/21 Vitamin B-12 (Unknown Dose) 1 tab PO DAILY 11/12/20 07/24/21 Vitamin C/Biotin [Hair, Skin and 1 tab PO DAILY 11/12/20 07/24/21 Nails Chew] hydrALAZINE HCL 25 mg PO TID 05/25/21 07/24/21 Previous Rx's Medication Instructions Recorded Apixaban [Eliquis] 5 mg PO BID #0 tab 06/27/19 Metoprolol Tartrate [Lopressor] 25 mg PO BID tab 06/27/19 metFORMIN HCL [Glucophage] 500 mg PO BID #60 tab 08/08/20 Allergies Allergy/AdvReac Type Severity Reaction Status Date / Time No Known Allergies Allergy Verified 07/24/21 09:27 Review of Systems ROS Statement: Those systems with pertinent positive or pertinent negative responses have been documented in the HPI. ROS Other: All systems not noted in ROS Statement are negative. 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 Spinal stenosis. Poss thyroid issue. Varicose veins,. History of Any Multi-Drug Resistant Organisms: None Reported Past Surgical History: Cholecystectomy, Heart Catheterization, Hernia Repair, Orthopedic Surgery Additional Past Surgical History / Comment(s): removed bone in left foot. Umbilical hernia ,CARDIOVERSION Past Anesthesia/Blood Transfusion Reactions: No Reported Reaction Past Psychological History: Anxiety, Depression Smoking Status: Former smoker Past Alcohol Use History: None Reported Past Drug Use History: None Reported - Past Family History Father History Unknown: Yes Sister(s) Family Medical History: Cancer Additional Family Medical History / Comment(s): breast cancer Mother Family Medical History: Deep Vein Thrombosis (DVT) General Exam - General Exam Comments Initial Comments: GENERAL: Patient is well-developed and well-nourished. Patient is nontoxic and well- hydrated and is in mild distress. ENT: Neck is soft and supple. No significant lymphadenopathy is noted. Oropharynx is clear. Moist mucous membranes. Neck has full range of motion without eliciting any pain. EYES: The sclera were anicteric and conjunctiva were pink and moist. Extraocular movements were intact and pupils were equal round and reactive to light. Eyelids were unremarkable. PULMONARY: Unlabored respirations. Good breath sounds bilaterally. No audible rales rhonchi or wheezing was noted. CARDIOVASCULAR: Patient is tachycardic but has an irregularly irregular heart rate ABDOMEN: Soft and nontender with normal bowel sounds. No palpable organomegaly was noted. There is no palpable pulsatile mass. SKIN: Skin is clear with no lesions or rashes and otherwise unremarkable. NEUROLOGIC: Patient is alert and oriented x3. Cranial nerves II through XII are grossly intact. Motor and sensory are also intact. Normal speech, volume and content. Symmetrical smile. MUSCULOSKELETAL: Normal extremities with adequate strength and full range of motion. Slight edema bilaterally LYMPHATICS: No significant lymphadenopathy is noted PSYCHIATRIC: Normal psychiatric evaluation. Limitations: no limitations Course Vital Signs 01/24/22 01/24/22 10:25 11:37 Temperature 101 F H Pulse Rate 83 95 Respiratory 24 18 Rate Blood Pressure 174/122 171/104 O2 Sat by Pulse 98 99 Oximetry Medical Decision Making - Medical Decision Making EKG is of poor quality because the patient is moving but it does show atrial fibrillation at 96 bpm QRS is 97 Q-T intervals 384 QTC is 438. And no ST segment elevation has obvious. Patient's second EKG was done because her heart rate went up a little bit showed atrial fibrillation with rapid ventricular response at 120 bpm QRS is 96 QT interval 3:30 QTC is 41 per patient's EKG shows no ST segment elevation or depression. Patient does have occasional PVC. Patient also had 102 temperature at this time. Patient has atrial fibrillation with rapid ventricular response I started the patient with a Cardizem bolus and then followed that up with a Cardizem drip. I spoke with the [facility] Hospitalist agreed to admit the patient admitted the patient wrote admitting orders. - Lab Data Result diagrams: 01/24/22 10:35 01/24/22 10:35 Lab Results 01/24/22 01/24/22 01/24/22 Range/Units 10:35 10:35 10:35 WBC 7.7 (3.8-10.6) k/uL RBC 4.54 (3.80-5.40) m/uL Hgb 12.9 (11.4-16.0) gm/dL Hct 40.0 (34.0-46.0) % MCV 88.1 (80.0-100.0) fL MCH 28.4 (25.0-35.0) pg MCHC 32.2 (31.0-37.0) g/dL RDW 14.8 (11.5-15.5) % Plt Count 277 (150-450) k/uL MPV 7.3 Neutrophils % 79 % Lymphocytes % 13 % Monocytes % 5 % Eosinophils % 2 % Basophils % 1 % Neutrophils # 6.0 (1.3-7.7) k/uL Lymphocytes # 1.0 (1.0-4.8) k/uL Monocytes # 0.4 (0-1.0) k/uL Eosinophils # 0.2 (0-0.7) k/uL Basophils # 0.1 (0-0.2) k/uL Hypochromasia Slight PT 10.5 (9.0-12.0) sec INR 1.0 (<1.2) APTT 28.7 (22.0-30.0) sec Sodium 141 (137-145) mmol/L Potassium 3.9 (3.5-5.1) mmol/L Chloride 102 (98-107) mmol/L Carbon Dioxide 29 (22-30) mmol/L Anion Gap 10 mmol/L BUN 11 (7-17) mg/dL Creatinine 0.73 (0.52-1.04) mg/dL Est GFR (CKD-EPI)AfAm >90 (>60 ml/min/1.73 sqM) Est GFR (CKD-EPI)NonAf 85 (>60 ml/min/1.73 sqM) Glucose 138 H (74-99) mg/dL Plasma Lactic Acid Philip (0.7-2.0) mmol/L Calcium 9.6 (8.4-10.2) mg/dL Magnesium 1.6 (1.6-2.3) mg/dL Total Bilirubin 1.1 (0.2-1.3) mg/dL AST 19 (14-36) U/L ALT 11 (4-34) U/L Alkaline Phosphatase 155 H (38-126) U/L Troponin I (0.000-0.034) ng/mL NT-Pro-B Natriuret Pep pg/mL Total Protein 7.0 (6.3-8.2) g/dL Albumin 4.3 (3.5-5.0) g/dL Coronavirus (PCR) (Not Detectd) 01/24/22 01/24/22 01/24/22 Range/Units 10:35 10:35 10:35 WBC (3.8-10.6) k/uL RBC (3.80-5.40) m/uL Hgb (11.4-16.0) gm/dL Hct (34.0-46.0) % MCV (80.0-100.0) fL MCH (25.0-35.0) pg MCHC (31.0-37.0) g/dL RDW (11.5-15.5) % Plt Count (150-450) k/uL MPV Neutrophils % % Lymphocytes % % Monocytes % % Eosinophils % % Basophils % % Neutrophils # (1.3-7.7) k/uL Lymphocytes # (1.0-4.8) k/uL Monocytes # (0-1.0) k/uL Eosinophils # (0-0.7) k/uL Basophils # (0-0.2) k/uL Hypochromasia PT (9.0-12.0) sec INR (<1.2) APTT (22.0-30.0) sec Sodium (137-145) mmol/L Potassium (3.5-5.1) mmol/L Chloride (98-107) mmol/L Carbon Dioxide (22-30) mmol/L Anion Gap mmol/L BUN (7-17) mg/dL Creatinine (0.52-1.04) mg/dL Est GFR (CKD-EPI)AfAm (>60 ml/min/1.73 sqM) Est GFR (CKD-EPI)NonAf (>60 ml/min/1.73 sqM) Glucose (74-99) mg/dL Plasma Lactic Acid Philip 0.8 (0.7-2.0) mmol/L Calcium (8.4-10.2) mg/dL Magnesium (1.6-2.3) mg/dL Total Bilirubin (0.2-1.3) mg/dL AST (14-36) U/L ALT (4-34) U/L Alkaline Phosphatase (38-126) U/L Troponin I <0.012 (0.000-0.034) ng/mL NT-Pro-B Natriuret Pep 693 pg/mL Total Protein (6.3-8.2) g/dL Albumin (3.5-5.0) g/dL Coronavirus (PCR) (Not Detectd) 01/24/22 Range/Units 10:35 WBC (3.8-10.6) k/uL RBC (3.80-5.40) m/uL Hgb (11.4-16.0) gm/dL Hct (34.0-46.0) % MCV (80.0-100.0) fL MCH (25.0-35.0) pg MCHC (31.0-37.0) g/dL RDW (11.5-15.5) % Plt Count (150-450) k/uL MPV Neutrophils % % Lymphocytes % % Monocytes % % Eosinophils % % Basophils % % Neutrophils # (1.3-7.7) k/uL Lymphocytes # (1.0-4.8) k/uL Monocytes # (0-1.0) k/uL Eosinophils # (0-0.7) k/uL Basophils # (0-0.2) k/uL Hypochromasia PT (9.0-12.0) sec INR (<1.2) APTT (22.0-30.0) sec Sodium (137-145) mmol/L Potassium (3.5-5.1) mmol/L Chloride (98-107) mmol/L Carbon Dioxide (22-30) mmol/L Anion Gap mmol/L BUN (7-17) mg/dL Creatinine (0.52-1.04) mg/dL Est GFR (CKD-EPI)AfAm (>60 ml/min/1.73 sqM) Est GFR (CKD-EPI)NonAf (>60 ml/min/1.73 sqM) Glucose (74-99) mg/dL Plasma Lactic Acid Philip (0.7-2.0) mmol/L Calcium (8.4-10.2) mg/dL Magnesium (1.6-2.3) mg/dL Total Bilirubin (0.2-1.3) mg/dL AST (14-36) U/L ALT (4-34) U/L Alkaline Phosphatase (38-126) U/L Troponin I (0.000-0.034) ng/mL NT-Pro-B Natriuret Pep pg/mL Total Protein (6.3-8.2) g/dL Albumin (3.5-5.0) g/dL Coronavirus (PCR) Detected A (Not Detectd) Critical Care Time Critical Care Time: Yes Total Critical Care Time: 35 Disposition Clinical Impression: COVID-19 Disposition: ADMITTED IP TO THIS HOSP Referrals: Steve Dennis MD [Primary Care Provider] - 1-2 days Time of Disposition: 12:21
[2022-01-24] MEDS ORDERED: IBUPROFEN 600 MG TAB PO STA (10:34)
[2022-01-24] MEDS ORDERED: ACETAMINOPHEN TAB 500 MG TAB PO STA (10:34)
[2022-01-24] MEDS ORDERED: hydrALAZINE HCL 20 MG/ML 1 ML VIAL IVP STA (10:35)
[2022-01-24 10:48] LABS: Basophils # (A) 0.1 k/uL (0-0.2); Basophils % (A) 1 %; Eosinophils # (A) 0.2 k/uL (0-0.7); Eosinophils % (A) 2 %; HGB 12.9 gm/dL (11.4-16.0); Hypochromasia Slight; Lymphocytes % (A) 13 %; MCH 28.4 pg (25.0-35.0); MCHC 32.2 g/dL (31.0-37.0); MCV 88.1 fL (80.0-100.0); Mean Platelet Volume 7.3; Monocytes # (A) 0.4 k/uL (0-1.0); Monocytes % (A) 5 %; Neutrophils % (A) 79 %; Platelet Count 277 k/uL (150-450); RBC 4.54 m/uL (3.80-5.40); RDW 14.8 % (11.5-15.5); WBC 7.7 k/uL (3.8-10.6)
[2022-01-24 11:02] LABS: Partial Thromboplastin Time 28.7 sec (22.0-30.0); Prothrombin Time 10.5 sec (9.0-12.0)
--- NOTE | 2022-01-24 11:14 | XR ---
EXAMINATION TYPE: XR chest 2V DATE OF EXAM: 01/24/2022 COMPARISON: Chest x-ray August 07, 2020 HISTORY: Difficulty in breathing. TECHNIQUE: Frontal and lateral views of the chest are obtained. FINDINGS: Lower thoracic spinal stimulator is now present. Cardiomegaly is redemonstrated. Reticular interstitial changes bilaterally redemonstrated. No new focal airspace opacity, pleural effusion, or pneumothorax seen bilaterally. IMPRESSION: Cardiomegaly with perhaps mild interstitial edema. Correlate for mild CHF exacerbation.
[2022-01-24 11:15] LABS: ALT 11 U/L (4-34); AST 19 U/L (14-36); African American GFR (CKD) >90 (>60 ml/min/1.73 sqM); Albumin 4.3 g/dL (3.5-5.0); Alkaline Phosphatase 155 U/L (38-126); Anion Gap 10 mmol/L; Blood Urea Nitrogen 11 mg/dL (7-17); Calcium 9.6 mg/dL (8.4-10.2); Carbon Dioxide 29 mmol/L (22-30); Chloride 102 mmol/L (98-107); Glucose 138 mg/dL (74-99); Magnesium 1.6 mg/dL (1.6-2.3); Non-African American GFR(CKD) 85 (>60 ml/min/1.73 sqM); Potassium 3.9 mmol/L (3.5-5.1); Sodium 141 mmol/L (137-145); Total Bilirubin 1.1 mg/dL (0.2-1.3)
[2022-01-24] MEDS ORDERED: dexAMETHasone 2 MG TAB PO STA (12:19)
[2022-01-24] MEDS ORDERED: SODIUM CHLORIDE 0.9% 500 ML 500 ML IV ONE (12:20)
[2022-01-24] MEDS ORDERED: DILTIAZEM DRIP BOLUS FROM BAG 1 MG SOLN IV ONE (12:20)
[2022-01-24] MEDS ORDERED: NITROGLYCERIN SL TABS 0.4 MG TAB SUBLINGUAL PRN (12:21)
[2022-01-24] MEDS ORDERED: ACETAMINOPHEN TAB 325 MG TAB PO PRN (12:22)
[2022-01-24] MEDS ORDERED: DILTIAZEM 125 MG in SODIUM CHLORIDE 0.9% 100 ML IV SCH (12:45)
[2022-01-24] MEDS: IBUPROFEN 600 MG TAB PO SCH ×3 (18:02→23:28)
[2022-01-24] MEDS: metFORMIN 500 MG TAB PO SCH (18:07)
[2022-01-24] MEDS ORDERED: METOPROLOL TARTRATE 50 MG TAB PO SCH (21:00)
--- NOTE | 2022-01-24 23:25 | CONS ---
CONSULTATION CHIEF COMPLAINT: Atrial fibrillation with rapid ventricular rate. HISTORY OF PRESENT ILLNESS: Shanta is 71-year-old lady with history of diabetes, hypertension, and atrial fibrillation, who presents to hospital with symptoms of difficulty breathing, increased urination and incontinence. She also has had episodes of cough. She was in atrial fibrillation with poorly controlled ventricular rate, for which Cardiology had been consulted. There is no history of fever. Denies nausea, vomiting. She had coronavirus PCR test that had come back positive. At the time of my evaluation, she appears comfortable at rest, she is in atrial fibrillation with poorly controlled ventricular rate. She is on Cardizem, I increased the dose. I advised her to resume the metoprolol that she was on along with the Eliquis. PAST MEDICAL HISTORY: Significant for hypertension, atrial fibrillation, [id number] diabetes. MEDICATIONS AT HOME: 1. Neurontin 300 mg daily. 2. Amlodipine 5 mg daily. 3. Lopressor 50 b.i.d. 4. Amiodarone 200 mg daily. 5. Glucophage. 6. Wylie. 7. Eliquis. ALLERGIES: No known drug allergies. FAMILY HISTORY: Negative for premature coronary artery disease. SOCIAL HISTORY: Negative for current smoking, EtOH abuse or drug abuse. REVIEW OF SYSTEMS: HEENT: Unremarkable. CARDIAC: As described above. RESPIRATORY: Negative. GI: Negative. GENITOURINARY: Negative. ALLERGY/IMMUNOLOGY: Negative. SKIN: Negative. MUSCULOSKELETAL: Significant for arthritis. PSYCHOSOCIAL: Negative. DERM: Negative. CONSTITUTIONAL: As described above. Rest of the system review is not relevant. PHYSICAL EXAMINATION: VITAL SIGNS: The patient is afebrile, heart rate is 120 beats per minute, blood pressure is 132/85, O2 saturation is 99% on 2 L. NECK: There is no jugular venous distention. Carotid upstroke is normal. There is no bruit. CHEST: Reveals good air entry bilaterally. I do not hear any crackles or rhonchi. HEART: Reveals first and second heart sounds, irregular rhythm and a systolic murmur at the left lower sternal border. ABDOMEN: Soft. EXTREMITIES: Examination of extremities did not reveal any edema. Peripheral pulses are felt. LABORATORY DATA: Labs show a hemoglobin of 12.9, platelet count is 277. Potassium is 3.9, creatinine is 0.7. Troponin is negative. BNP is 693. ASSESSMENT AND PLAN: 1. Persistent atrial fibrillation with poorly controlled ventricular rate. 2. Coronavirus infection. We will treat the patient with intravenous Cardizem, oral beta-blockers, and Eliquis. Obtain a 2D echo tomorrow morning. SARAHI / RUTH: [id number] /
[2022-01-24] MEDS: HYDROcodone/APAP 7.5-325MG 1 EACH TAB PO SCH (23:26)
[2022-01-24] MEDS: APIXABAN 5 MG TAB PO SCH (23:28)
[2022-01-25 06:59] LABS: Basophils % (A) 0 %; Eosinophils % (A) 1 %; HCT 39.8 % (34.0-46.0); HGB 12.8 gm/dL (11.4-16.0); Hypochromasia Marked; Lymphocytes # (A) 0.7 k/uL (1.0-4.8); Lymphocytes % (A) 16 %; MCH 29.6 pg (25.0-35.0); MCHC 32.2 g/dL (31.0-37.0); MCV 91.6 fL (80.0-100.0); Mean Platelet Volume 7.6; Monocytes # (A) 0.2 k/uL (0-1.0); Monocytes % (A) 4 %; Neutrophils # (A) 3.5 k/uL (1.3-7.7); Neutrophils % (A) 78 %; Platelet Count 221 k/uL (150-450); RBC 4.34 m/uL (3.80-5.40); RDW 14.5 % (11.5-15.5); WBC 4.5 k/uL (3.8-10.6)
[2022-01-25 07:05] LABS: African American GFR (CKD) >90 (>60 ml/min/1.73 sqM); Anion Gap 12 mmol/L; Blood Urea Nitrogen 20 mg/dL (7-17); Calcium 9.7 mg/dL (8.4-10.2); Carbon Dioxide 21 mmol/L (22-30); Chloride 108 mmol/L (98-107); Glucose 192 mg/dL (74-99); Non-African American GFR(CKD) >90 (>60 ml/min/1.73 sqM); Potassium 4.1 mmol/L (3.5-5.1); Sodium 141 mmol/L (137-145)
--- NOTE | 2022-01-25 08:49 | HP ---
HISTORY AND PHYSICAL CHIEF COMPLAINT: Shortness of breath and atrial fibrillation. HISTORY OF PRESENT ILLNESS: This 71 year old woman with a past medical history of atrial fibrillation, CVA, diabetes, multiple medical problems, was complaining of shortness of breath for the last 3 to 4 days. The patient also has some vague chest discomfort and palpitations. The patient was found to have atrial fibrillation, fast ventricular heart rate was in the 170s. The patient was given Cardizem 7.5 mg. Heart rate has improved to 90s. There is no history of fever, rigors, or chills at this time. The chest x-ray which I reviewed personally showed some CHF also. PAST MEDICAL HISTORY: History of CVA, diabetes mellitus type 2. Rest of the history and chart reviewed. MEDICATIONS: Neurontin, doses and rest of medications reviewed. ALLERGIES: Reviewed, none. FAMILY HISTORY: History of breast cancer. SOCIAL HISTORY: Previous history of smoking. REVIEW OF SYSTEMA: 14-point review is negative as mentioned earlier. PHYSICAL EXAMINATION: VITAL SIGNS: Pulse is 76 and regular. Blood pressure n respirations 18. HEENT: Conjunctivae normal. Oral mucosa moist. NECK: No JVD. CARDIOVASCULAR: S1 and S2, irregular. RESPIRATIONS: Breath sounds diminished at the bases. No rhonchi. No crackles. ABDOMEN: Soft and obese. NEUROLOGIC: No focal deficits. LABORATORY DATA: Reviewed. COVID-19 is positive. ASSESSMENT: 1. Atrial fibrillation with fast ventricular rate. 2. Acute COVID-19. 3. Cerebrovascular accident transient ischemic attack .. 4. Diabetes mellitus, type 2. 5. Gastroesophageal reflux disease. 6. Multiple medical issues. RECOMMENDATIONS: the patient is already on Eliquis. We will continue the Cardizem. Cardiology consultation. Infectious disease evaluation for the COVID-19. Resume the home medications. Prognosis guarded. Further recommendations to follow. See orders for further details. MMODL / IJN: [id number] / MTDD
[2022-01-25] MEDS ORDERED: AMIODARONE 200 MG TAB PO SCH (09:00)
[2022-01-25] MEDS: metFORMIN 500 MG TAB PO SCH ×2 (09:52→16:47)
[2022-01-25] MEDS: APIXABAN 5 MG TAB PO SCH ×2 (09:52→21:43)
[2022-01-25] MEDS: amLODIPine 5 MG TAB PO SCH (09:52)
[2022-01-25] MEDS: dexAMETHasone 2 MG TAB PO SCH (09:52)
[2022-01-25] MEDS: METOPROLOL TARTRATE 50 MG TAB PO SCH ×3 (09:52→21:43)
[2022-01-25] MEDS: IBUPROFEN 600 MG TAB PO SCH ×4 (09:53→21:43)
[2022-01-25] MEDS: GABAPENTIN 300 MG CAP PO SCH (09:53)
[2022-01-25] MEDS: HYDROcodone/APAP 7.5-325MG 1 EACH TAB PO SCH ×2 (09:56→21:42)
--- NOTE | 2022-01-25 10:15 | P.PN ---
Subjective This is a pleasant 71 year-old female past medical history significant for persistent atrial fibrillation (on eliquis) s/p prior ablation 05/2021 and prior cardioversion 07/2021, rheumatoid arthritis (takes methotrexate), previous CVA 2, hypertension, Type 2 diabetes, mild non-obstructive CAD from Cardiac cath on 06/24/2019,20% LAD, 20% mid Cx, 20% proximal RCA, right dominant. She follows in the office with Dr. Fatima. We have been asked to see in consultation for Atrial fibrillation with RVR. Patient presents to the emergency department with complaints of cough, shortness of breath, fever, urinary frequency and incontinence. Patient found to be COVID-19 positive. On admission patient found to be in A. fib with RVR, initially started on Cardizem drip. Currently she is in A. fib with controlled ventricular rates. PHYSICAL EXAMINATION CONSTITUTIONAL: No apparent distress. HEENT: Head is normocephalic. Neck Supple. No JVD. No carotid bruit. CHEST EXAMINATION: Lungs are diminished to auscultation. No chest wall tenderness is noted on palpation or with deep breathing. HEART EXAMINATION: Irregular rate and rhythm. S1, S2 heard. No murmurs, gallops or rub. ABDOMEN: Soft, nontender. Positive bowel sounds. EXTREMITIES: 2+ peripheral pulses,trace bilateral lower extremity edema and no calf tenderness. NEUROLOGIC EXAMINATION: Patient is awake, alert and oriented x3. ASSESSMENT Persistent atrial fibrillation with mikld RVR (on eliquis), currently controlled Covid-19 Infection Fever Shortness of breath Urinary frequency Hypertension Type 2 Diabetes Rheumatoid arthritis (takes methotrexate) Previous CVA 2 PLAN Stop IV Cardizem Increase metoprolol to 50 mg TID Continue anticoagulation with Eliquis Continue cardiac telemetry If patients heart rates are improved, no further inpatient workup from cardiology perspective On discharge follow up with Dr. Fatima Nurse Practitioner note has been reviewed, I agree with a documented findings and plan of care. Patient was seen and examined. Objective - Vital Signs Vital signs: Vital Signs Temp 97.1 F L 01/25/22 04:00 Pulse 51 L 01/25/22 04:00 Resp 16 01/25/22 04:00 BP 134/80 01/24/22 18:10 Pulse Ox 100 01/24/22 20:00 FiO2 Intake & Output 01/24/22 01/25/22 01/25/22 18:59 06:59 18:59 Intake Total 33.083 9.333 Output Total 4 Balance 33.083 5.333 Weight 90.718 kg Intake: Intake, IV Titration 33.083 9.333 Amount Diltiazem 125 mg In 33.083 9.333 Sodium Chloride 0.9% 100 ml @ 5 MG/HR 5 mls/hr IV .Q24H [facility] Rx#:[id number] Output: Stool 4 Other: Voiding Method Bedside Commode # Voids 2 # Bowel Movements 2 - Labs CBC & Chem 7: 01/25/22 06:17 01/25/22 06:17 Labs: Abnormal Lab Results - Last 24 Hours (Table) 01/24/22 01/24/22 01/25/22 Range/Units 10:35 10:35 06:17 Lymphocytes # (1.0-4.8) k/uL Chloride 108 H (98-107) mmol/L Carbon Dioxide 21 L (22-30) mmol/L BUN 20 H (7-17) mg/dL Glucose 138 H 192 H (74-99) mg/dL Alkaline Phosphatase 155 H (38-126) U/L Coronavirus (PCR) Detected A (Not Detectd) 01/25/22 Range/Units 06:17 Lymphocytes # 0.7 L (1.0-4.8) k/uL Chloride (98-107) mmol/L Carbon Dioxide (22-30) mmol/L BUN (7-17) mg/dL Glucose (74-99) mg/dL Alkaline Phosphatase (38-126) U/L Coronavirus (PCR) (Not Detectd)
[2022-01-25 12:10] LABS: Appearance,Urine Cloudy (Clear); Bacteria,Urine Rare /hpf; Bilirubin,Urine Negative (Negative); Blood,Urine Negative (Negative); Color,Urine Yellow; Glucose,Urine (UA) Negative (Negative); Hyaline Casts,Urine 1 /lpf (0-2); Ketones,Urine Trace (Negative); Leukocyte Esterase,Urine Negative (Negative); Mucus,Urine Few /hpf; Nitrite,Urine Negative (Negative); PH, Urine 5.5 (5.0-8.0); Protein,Urine 1+ (Negative); RBC,Urine 1 /hpf (0-5); Specific Gravity,Urine 1.028 (1.001-1.035); Squamous Epithelial Cell,Urine 10 /hpf (0-4); Urobilinogen,Urine <2.0 mg/dL (<2.0); WBC,Urine 5 /hpf (0-5)
[2022-01-25] MEDS ORDERED: DEXTROSE 50% SYRINGE 50 ML IVP PRN ×2 (17:53)
[2022-01-25 20:21] LABS: Glucose,Whole Blood 181 mg/dL (70-110)
[2022-01-25 20:29] LABS: Chol/HDL Ratio 4.14 Ratio; LDL Cholesterol,Calculated 123.8 mg/dL (0.0-131.0); VLDL Calculation 12.74 mg/dL (5.00-40.00)
[2022-01-25] MEDS: INSULIN ASPART (NovoLOG) 100 UNIT/ML VIAL SQ SCH (21:43)
[2022-01-25] MEDS ORDERED: MELATONIN 5 MG TABLET PO SCH (22:00)
--- NOTE | 2022-01-26 05:27 | PN ---
PROGRESS NOTE DATE OF SERVICE: 01/25/2022 SUBJECTIVE: This is a 71-year-old woman who was admitted with atrial fibrillation with fast ventricular rate, also had acute COVID-19. The heart rate is improved. No chest pain. No palpitations. No fever. PHYSICAL EXAMINATION: VITAL SIGNS: Pulse is 59, blood pressure 148/80, respirations 16. CHEST: Clear to auscultation. CARDIOVASCULAR: S1, S2 normal. Irregular. ABDOMEN: Soft. NERVOUS SYSTEM: No focal deficits. LABS: Reviewed. ASSESSMENT: 1. Atrial fibrillation with fast ventricular rate present on admission. 2. Acute COVID-19. 3. Cerebrovascular accident, transient ischemic attack history. 4. Diabetes mellitus, type 2. 5. Multiple medical issues. RECOMMENDATIONS: Recommend to continue current management and symptomatic treatment. Continue with beta blockers. Dr. Escobar is following the patient for COVID-19. Prognosis guarded. Further recommendations to follow. MMODL / IJN: [id number] /
[2022-01-26 06:28] LABS: Glucose,Whole Blood 210 mg/dL (70-110)
[2022-01-26] MEDS: metFORMIN 500 MG TAB PO SCH (06:28)
[2022-01-26] MEDS: INSULIN ASPART (NovoLOG) 100 UNIT/ML VIAL SQ SCH (06:28)
--- NOTE | 2022-01-26 06:57 | P.CONS ---
History of Present Illness - Reason for Consult Consult date: 01/25/22 - History of Present Illness Patient is a 71-year-old -[place] female with a past medical history significant for diabetes mellitus hypertension congestive heart failure atrial fibrillation presented to the hospital for evaluation of increasing shortness of breath that apparently has been going on for about 3 days before presentation to the hospital patient has been complaining of some intermittent chest pain, she did have a cough which is mild in intensity mostly dry in nature denies any pleuritic chest pain patient has been complaining of some nausea but no vomiting did have diarrhea but no abdominal pain also having some urinary frequency and incontinence, with the symptom the patient was evaluated by the ER physician on arrival to the ER the patient did have a fever of 101 F patient however was not hypoxic or need for supplemental oxygen currently 99% on room air patient did have a normal white count with lymphopenia on repeat CBC kidney function has been normal liver enzymes are normal urine has been negative patient did have a positive COVID test blood cultures obtained which currently pending patient did have a chest x-ray cardiomegaly with perhaps mild interstitial edema correlate for mild CHF exacerbation infectious disease was consulted and has a positive COVID test, patient has received 2 COVID vaccination but not boosted Past Medical History Past Medical History: Atrial Fibrillation, Heart Failure, CVA/TIA, Diabetes Mellitus, GERD/Reflux, Hypertension, Rheumatoid Arthritis (RA) Additional Past Medical History / Comment(s): 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 Spinal stenosis. Poss thyroid issue. Varicose veins,. History of Any Multi-Drug Resistant Organisms: None Reported Past Surgical History: Cholecystectomy, Heart Catheterization, Hernia Repair, Orthopedic Surgery Additional Past Surgical History / Comment(s): removed bone in left foot. Umbilical hernia ,CARDIOVERSION Past Anesthesia/Blood Transfusion Reactions: No Reported Reaction Past Psychological History: Anxiety, Depression Smoking Status: Former smoker Past Alcohol Use History: None Reported Past Drug Use History: None Reported - Past Family History Father History Unknown: Yes Sister(s) Family Medical History: Cancer Additional Family Medical History / Comment(s): breast cancer Mother Family Medical History: Deep Vein Thrombosis (DVT) Medications and Allergies Home Medications Medication Instructions Recorded Confirmed Type amLODIPine [Norvasc] 5 mg PO DAILY 06/24/19 01/24/22 History Apixaban [Eliquis] 5 mg PO BID #0 tab 06/27/19 01/24/22 Rx HYDROcodone/APAP 7.5-325MG [[place] 1 tab PO BID 08/07/20 01/24/22 History 7.5-325] Gabapentin [Neurontin] 300 mg PO DAILY 11/12/20 01/24/22 History Amiodarone [Cordarone] 200 mg PO DAILY 01/24/22 01/24/22 History Metoprolol Tartrate [Lopressor] 50 mg PO BID 01/24/22 01/24/22 History metFORMIN HCL [Glucophage] 1,000 mg PO BID 01/24/22 01/24/22 History Allergies Allergy/AdvReac Type Severity Reaction Status Date / Time No Known Allergies Allergy Verified 07/24/21 09:27 Physical Exam Vitals: Vital Signs Temp Pulse Pulse Resp BP BP Pulse Ox 01/25/22 08:00 59 L 16 148/88 100 01/25/22 04:00 97.1 F L 51 L 16 01/25/22 02:00 51 L 16 01/25/22 00:00 97.5 F L 61 16 01/24/22 20:00 98.0 F 78 16 100 01/24/22 18:10 64 18 134/80 95 01/24/22 16:58 76 18 153/92 99 01/24/22 15:23 108 H 18 136/76 100 01/24/22 14:22 103 H 18 109/84 98 01/24/22 13:51 98.9 F 01/24/22 12:58 120 H 20 132/85 99 01/24/22 12:50 100 F H 01/24/22 12:48 140 H 20 117/89 99 Intake and Output 01/24/22 01/25/22 01/25/22 22:59 06:59 14:59 Intake Total 37.333 360 Output Total 4 Balance 33.333 360 Intake: Intake, IV Titration 37.333 Amount Diltiazem 125 mg In 37.333 Sodium Chloride 0.9% 100 ml @ 5 MG/HR 5 mls/hr IV .Q24H [facility] Rx#:[id number] Oral 360 Output: Stool 4 Other: Voiding Method Bedside Commode Bedside Commode Bedside Commode # Voids 1 2 # Bowel Movements 2 Results CBC & Chem 7: 01/25/22 06:17 01/25/22 06:17 Labs: Abnormal Lab Results - Last 24 Hours (Table) 01/25/22 01/25/22 Range/Units 06:17 06:17 Lymphocytes # 0.7 L (1.0-4.8) k/uL Chloride 108 H (98-107) mmol/L Carbon Dioxide 21 L (22-30) mmol/L BUN 20 H (7-17) mg/dL Glucose 192 H (74-99) mg/dL Assessment and Plan Plan: 1patient presented to hospital with increasing shortness of breath also have mild cough and did have a fever secondary to acute covid19 infection in this patient more likely with a mild illness as the patient is currently not hypoxic or need for supplemental oxygen chest x-ray with some mild interstitial infiltrate concerning for CHF did not show any groundglass opacity pathognomonic for COVID-19 pneumonia, treat will be mostly supportive. 2patient currently do not qualify for remdesivir per [facility] policy and no need for steroids as the patient not hypoxic. 3patient to continue with the dexamethasone we will add zinc and ascorbic acid. 4droplet isolation. We will follow on clinical condition and cultures to further adjust medication if needed Thank you for this consultation will follow this patient along with you Time with Patient: Greater than 30
[2022-01-26 08:37] LABS: Estimated Average Glucose CANCELED
[2022-01-26] MEDS ORDERED: ZINC SULFATE 220 MG CAP PO SCH (09:00)
[2022-01-26] MEDS ORDERED: ASCORBIC ACID 500 MG TAB PO SCH (09:00)
[2022-01-26] MEDS ORDERED: guaiFENesin-DM 100-10MG/5ML 10 ML CUP PO PRN (09:48)
[2022-01-26] MEDS: METOPROLOL TARTRATE 50 MG TAB PO SCH (10:14)
[2022-01-26] MEDS: APIXABAN 5 MG TAB PO SCH (10:14)
[2022-01-26] MEDS: amLODIPine 5 MG TAB PO SCH (10:15)
[2022-01-26] MEDS: HYDROcodone/APAP 7.5-325MG 1 EACH TAB PO SCH (10:15)
[2022-01-26] MEDS: IBUPROFEN 600 MG TAB PO SCH (10:15)
[2022-01-26] MEDS: GABAPENTIN 300 MG CAP PO SCH (10:15)
--- NOTE | 2022-01-26 10:44 | P.PN ---
Subjective This is a pleasant 71 year-old female past medical history significant for persistent atrial fibrillation (on eliquis) s/p prior ablation 05/2021 and prior cardioversion 07/2021, rheumatoid arthritis (takes methotrexate), previous CVA 2, hypertension, Type 2 diabetes, mild non-obstructive CAD from Cardiac cath on 06/24/2019,20% LAD, 20% mid Cx, 20% proximal RCA, right dominant. She follows in the office with Dr. Fatima. We have been asked to see in consultation for Atrial fibrillation with RVR. Patient presents to the emergency department with complaints of cough, shortness of breath, fever, urinary frequency and incontinence. Patient found to be COVID-19 positive. On admission patient found to be in A. fib with RVR, initially started on Cardizem drip. Currently she is in A. fib with controlled ventricular rates. 01/26/2022 Patient HR has improved, currently in atrial fibrillation with heart rates in the 50s to 60s, 1 episode of 4 beat run of NSVT. Blood pressure 152/98, heart rate 58, afebrile, oxygen saturation 79% on room air PHYSICAL EXAMINATION CONSTITUTIONAL: No apparent distress. HEENT: Head is normocephalic. Neck Supple. No JVD. No carotid bruit. CHEST EXAMINATION: Lungs are diminished to auscultation. HEART EXAMINATION: Irregular rate and rhythm. S1, S2 heard. No murmurs, gallops or rub. NEUROLOGIC EXAMINATION: Patient is awake, alert and oriented x3. ASSESSMENT Persistent atrial fibrillation with mikld RVR (on eliquis), currently controlled Covid-19 Infection Fever Shortness of breath Urinary frequency Hypertension Type 2 Diabetes Rheumatoid arthritis (takes methotrexate) Previous CVA 2 PLAN Continue metoprolol to 50 mg TID Continue anticoagulation with Eliquis Limited echo ordered to evaluate LV function No further inpatient workup from cardiology perspective Discharge when cleared by primary and other consultants On discharge follow up with Dr. Fatima Nurse Practitioner note has been reviewed, I agree with a documented findings and plan of care. Patient was seen and examined. Objective - Vital Signs Vital signs: Vital Signs Temp 97.6 F 01/26/22 04:00 Pulse 58 L 01/26/22 04:00 Resp 18 01/26/22 04:00 BP 152/98 01/26/22 04:00 Pulse Ox 99 01/26/22 04:00 FiO2 Intake & Output 01/25/22 01/26/22 01/26/22 18:59 06:59 18:59 Intake Total 840 240 Balance 840 240 Intake: Oral 840 240 Other: Voiding Method Bedside Commode Bedside Commode # Voids 1 1 - Labs CBC & Chem 7: 01/25/22 06:17 01/25/22 06:17 Labs: Abnormal Lab Results - Last 24 Hours (Table) 01/25/22 01/25/22 01/26/22 Range/Units 11:43 20:17 06:26 POC Glucose (mg/dL) 181 H 210 H (70-110) mg/dL Urine Appearance Cloudy H (Clear) Urine Protein 1+ H (Negative) Urine Ketones Trace H (Negative) Ur Squamous Epith Cells 10 H (0-4) /hpf Urine Bacteria Rare H (None) /hpf Urine Mucus Few H (None) /hpf Microbiology - Last 24 Hours (Table) 01/24/22 10:52 Blood Culture - Preliminary Blood No Growth after 24 hours 01/24/22 10:40 Blood Culture - Preliminary Blood No Growth after 24 hours
[2022-01-26 10:57] VITALS: BP 134/77; PULSE 49; RESP 16; TEMP 97.7
[2022-01-26 11:03] VITALS: BMI 34.3
[2022-01-26] MEDS: dexAMETHasone 2 MG TAB PO SCH (11:13)
--- NOTE | 2022-01-26 19:56 | CA ---
Transthoracic Echo Report Name: Shanta Marquez Age: 71 Gender: F : 1950 Exam Date: 01/26/2022 13:19 Exam Location: [facility] Ht (in): 64 Wt (lb): 200 Ordering Physician: Dalia Azul Attending/Referring Phys: Engagement Quality Consultant Blanca Dewey, MARGIE Procedure CPT: Indications: LV function, afib rvr Cardiac Hx: Technical Quality: Good Contrast 1: Total Dose (mL): Contrast 2: Total Dose (mL): MEASUREMENTS (Male / Female) Normal Values 2D ECHO RV Internal Dim ED PLAX 3.2 cm LA Volume 74.8 cm??? 18 - 58 / 22 - 52 cm??? DOPPLER AV Peak Velocity 164.4 cm/s AV Peak Gradient 10.8 mmHg TR Peak Velocity 322.5 cm/s TR Peak Gradient 41.6 mmHg Right Ventricular Systolic Press 46.6 mmHg FINDINGS Left Ventricle Left ventricular ejection fraction is estimated at 55-60 %. Right Ventricle Normal right ventricular size and function. Moderate pulmonary hypertension. Right Atrium Left Atrium Severely increased left atrial volume. Mildly increased left atrial area. No evidence for an atrial septal defect. Mitral Valve Mild mitral regurgitation. Aortic Valve Trileaflet aortic valve. Focal thickening of the aortic valve cusps. Mild aortic regurgitation. Tricuspid Valve Mild tricuspid regurgitation. Pulmonic Valve Mild pulmonic regurgitation. Pericardium Normal pericardium. No pericardial effusion. Aorta CONCLUSIONS LVH with preserved systolic function Previewed by: Dr. Vicente Calvo MD (Electronically Signed) Final Date: 26 January 2022 19:55
== END 2022-01-26 14:02 | disposition home or self-care (01) | DRG 308 ==
LOC: EC 10:24 → 3SCARD 12:23
PROVIDERS: ADMIT Hospitalist; ATTEND Hospitalist
DX: I48.19 Other persistent atrial fibrillation (principal); U07.1 COVID-19; I69.354 Hemiplegia and hemiparesis following cerebral infarction affecting left non-dominant side; I50.9 Heart failure, unspecified; M48.00 Spinal stenosis, site unspecified; K21.9 Gastro-esophageal reflux disease without esophagitis; M06.9 Rheumatoid arthritis, unspecified; F41.9 Anxiety disorder, unspecified; F32.A Depression, unspecified; Z79.01 Long term (current) use of anticoagulants; E11.9 Type 2 diabetes mellitus without complications; I11.0 Hypertensive heart disease with heart failure; R32 Unspecified urinary incontinence; I25.10 Atherosclerotic heart disease of native coronary artery without angina pectoris; I47.20 Ventricular tachycardia, unspecified; I49.3 Ventricular premature depolarization; Z79.84 Long term (current) use of oral hypoglycemic drugs; Z79.899 Other long term (current) drug therapy; Z87.891 Personal history of nicotine dependence
CPT/HCPCS: 36415; 71046; 80048; 80053; 80061; 81001; 83036; 83605; 83735; 83880; 84484; 85025; 85610; 85730; 87040; 87635; 93005; 93308; 96361; 96365; 96366; 96375; 99291

== ENCOUNTER 2022-02-12 19:18 | Emergency (ER) | payer MEDICARE, OTHER ==
[2022-02-12 19:28] VITALS: BP 148/82; RESP 16
[2022-02-12 20:31] LABS: Basophils # (A) 0.1 k/uL (0-0.2); Basophils % (A) 1 %; Eosinophils # (A) 0.2 k/uL (0-0.7); Eosinophils % (A) 4 %; HCT 43.3 % (34.0-46.0); HGB 14.2 gm/dL (11.4-16.0); Hypochromasia Slight; Lymphocytes # (A) 2.1 k/uL (1.0-4.8); Lymphocytes % (A) 35 %; MCH 29.1 pg (25.0-35.0); MCHC 32.7 g/dL (31.0-37.0); MCV 88.9 fL (80.0-100.0); Mean Platelet Volume 7.5; Monocytes # (A) 0.3 k/uL (0-1.0); Monocytes % (A) 4 %; Neutrophils # (A) 3.2 k/uL (1.3-7.7); Neutrophils % (A) 54 %; Platelet Count 289 k/uL (150-450); RBC 4.87 m/uL (3.80-5.40); RDW 14.3 % (11.5-15.5); WBC 5.9 k/uL (3.8-10.6)
[2022-02-12 20:39] LABS: ALT 13 U/L (4-34); AST 20 U/L (14-36); African American GFR (CKD) >90 (>60 ml/min/1.73 sqM); Albumin 4.5 g/dL (3.5-5.0); Alkaline Phosphatase 165 U/L (38-126); Anion Gap 10 mmol/L; Blood Urea Nitrogen 15 mg/dL (7-17); Calcium 10.5 mg/dL (8.4-10.2); Carbon Dioxide 26 mmol/L (22-30); Chloride 107 mmol/L (98-107); Glucose 120 mg/dL (74-99); Non-African American GFR(CKD) >90 (>60 ml/min/1.73 sqM); Potassium 4.7 mmol/L (3.5-5.1); Sodium 143 mmol/L (137-145); Total Bilirubin 0.8 mg/dL (0.2-1.3); Total Protein 7.4 g/dL (6.3-8.2)
--- NOTE | 2022-02-12 21:15 | CT ---
EXAMINATION TYPE: CT brain wo con DATE OF EXAM: 02/12/2022 COMPARISON: None HISTORY: pain after fall and hitting head. CT DLP: 1188.4 mGycm Automated exposure control for dose reduction was used. Images obtained of the brain with no contrast. There is extensive hypodensity in the periventricular white matter. There is no mass effect or midlin e shift. No sign of intracranial hemorrhage. There is enlargement of the ventricles. There is cerebra l cortical atrophy. IMPRESSION: Cerebral atrophy and chronic small vessel ischemia. No acute intracranial abnormality. No hemorrhage. Mild hydrocephalus. Brain not changed compared to MRI scan of 06/25/2019.
[2022-02-13 00:18] VITALS: PULSE 64; TEMP 98.2
[2022-02-13] MEDS ORDERED: HYDROcodone/APAP 7.5-325MG 1 EACH TAB PO ONE (00:34)
[2022-02-13 00:51] LABS: INR 0.9 (<1.2); Partial Thromboplastin Time 28.6 sec (22.0-30.0); Prothrombin Time 10.2 sec (9.0-12.0)
--- NOTE | 2022-02-13 01:50 | ED ---
General Adult HPI - General Chief complaint: Head Injury Stated complaint: fall, on thinners Time Seen by Provider: 02/13/22 00:11 Source: patient, RN notes reviewed Mode of arrival: ambulatory Limitations: no limitations - History of Present Illness Initial comments: 71-year-old female presents to the emergency department for evaluation of head injury status post trip and fall this afternoon. Patient states she typically uses a walker, however was not today when she fell crossing the road. Her foot got caught on an uneven section of pavement. States she landed on her backside then hit her head on the concrete. Patient's significant other witnessed event but was unable to help her to her feet as he has mobility issues as well. EMS was called and assisted patient to standing, and then she ambulated to their cot where she was transported to the emergency department. Uncertain if there was loss of consciousness, though patient states if present, it was brief. Complains of pain in the back of her head, but denies any further injury. Re ports initial blurry vision which has since resolved. Did have mild nausea, though no vomiting. Denies dizziness, chest pain, shortness of breath, abdominal pain, vomiting, diarrhea, dysuria, or hematuria. No other injuries. - Related Data Home Medications Medication Instructions Recorded Confirmed amLODIPine [Norvasc] 5 mg PO DAILY 06/24/19 01/24/22 HYDROcodone/APAP 7.5-325MG [[place] 1 tab PO BID 08/07/20 01/24/22 7.5-325] Gabapentin [Neurontin] 300 mg PO DAILY 11/12/20 01/24/22 metFORMIN HCL [Glucophage] 1,000 mg PO BID 01/24/22 01/24/22 Previous Rx's Medication Instructions Recorded Apixaban [Eliquis] 5 mg PO BID #0 tab 06/27/19 Metoprolol Tartrate [Lopressor] 50 mg PO TID #90 tab 01/26/22 Allergies Allergy/AdvReac Type Severity Reaction Status Date / Time No Known Allergies Allergy Verified 02/12/22 19:20 Review of Systems ROS Statement: Those systems with pertinent positive or pertinent negative responses have been documented in the HPI. ROS Other: All systems not noted in ROS Statement are negative. 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 Spinal stenosis. Poss thyroid issue. Varicose veins,. History of Any Multi-Drug Resistant Organisms: None Reported Past Surgical History: Cholecystectomy, Heart Catheterization, Hernia Repair, Orthopedic Surgery Additional Past Surgical History / Comment(s): removed bone in left foot. Umbilical hernia ,CARDIOVERSION Past Anesthesia/Blood Transfusion Reactions: No Reported Reaction Past Psychological History: Anxiety, Depression Smoking Status: Former smoker Past Alcohol Use History: None Reported Past Drug Use History: None Reported - Past Family History Father History Unknown: Yes Sister(s) Family Medical History: Cancer Additional Family Medical History / Comment(s): breast cancer Mother Family Medical History: Deep Vein Thrombosis (DVT) General Exam Limitations: no limitations General appearance: alert, in no apparent distress Head exam: Present: atraumatic, normocephalic, normal inspection, other (unable to palpate hematoma or visualize abrasion or contusion) Eye exam: Present: normal appearance, PERRL, EOMI. Absent: scleral icterus, conjunctival injection, periorbital swelling ENT exam: Present: normal exam, normal oropharynx, mucous membranes moist, TM's normal bilaterally Neck exam: Present: normal inspection, full ROM. Absent: tenderness, meni ngismus, lymphadenopathy Respiratory exam: Present: normal lung sounds bilaterally. Absent: respiratory distress, wheezes, rales, rhonchi, stridor Cardiovascular Exam: Present: regular rate, normal rhythm, normal heart sounds. Absent: systolic murmur, diastolic murmur, rubs, gallop, clicks GI/Abdominal exam: Present: soft, normal bowel sounds. Absent: distended, tenderness, guarding, rebound, rigid Back exam: Absent: CVA tenderness (R), CVA tenderness (L), paraspinal tenderness, vertebral tenderness Neurological exam: Present: alert, oriented X3 Psychiatric exam: Present: flat affect Course Vital Signs 02/12/22 02/13/22 19:20 00:15 Temperature 98.2 F Pulse Rate 70 64 Respiratory 16 16 Rate Blood Pressure 148/82 O2 Sat by Pulse 98 100 Oximetry - Reevaluation(s) Reevaluation #1: 02/13/22 00:39 Patient's workup was initiated while in the waiting room. Medical record was reviewed. Laboratory studies were evaluated. Medical Decision Making - Medical Decision Making This is a 72-year-old female with a past medical history of atrial fibrillation and diabetes who presents to the emergency department for evaluation of head injury status post fall. Patient does take the blood thinning medicine, Eliquis, which categorizes injury as a fall on thinners. Her workup was initiated out in the waiting room in order to maintain compliance with timeline constraints. Patient had no cervical spine tenderness and was neurologically intact upon arrival. No palpable scalp hematoma or abrasions visualized. Patient answers questions appropriately and follows commands as necessary. Laboratory studies were reviewed and are unremarkable. CT of the was negative for any acute findings. EKG showed atrial fibrillation with a heart rate of 78. Patient was given a [place] for pain with improvement. She will be discharged home to follow up with her PCP for a recheck. Encouraged to use her walker and assistive devices for stability on uneven ground. Instructed to follow-up with her PCP for a recheck this week. Return parameters discussed in detail. Patient verbalizes understanding and agrees with this plan. Attending: Girish. - Lab Data Result diagrams: 02/12/22 19:51 02/12/22 19:51 Lab Results 02/12/22 02/12/22 02/13/22 Range/Units 19:51 19:51 00:29 WBC 5.9 (3.8-10.6) k/uL RBC 4.87 (3.80-5.40) m/uL Hgb 14.2 (11.4-16.0) gm/dL Hct 43.3 (34.0-46.0) % MCV 88.9 (80.0-100.0) fL MCH 29.1 (25.0-35.0) pg MCHC 32.7 (31.0-37.0) g/dL RDW 14.3 (11.5-15.5) % Plt Count 289 (150-450) k/uL MPV 7.5 Neutrophils % 54 % Lymphocytes % 35 % Monocytes % 4 % Eosinophils % 4 % Basophils % 1 % Neutrophils # 3.2 (1.3-7.7) k/uL Lymphocytes # 2.1 (1.0-4.8) k/uL Monocytes # 0.3 (0-1.0) k/uL Eosinophils # 0.2 (0-0.7) k/uL Basophils # 0.1 (0-0.2) k/uL Hypochromasia Slight PT 10.2 (9.0-12.0) sec INR 0.9 (<1.2) APTT 28.6 (22.0-30.0) sec Sodium 143 (137-145) mmol/L Potassium 4.7 (3.5-5.1) mmol/L Chloride 107 (98-107) mmol/L Carbon Dioxide 26 (22-30) mmol/L Anion Gap 10 mmol/L BUN 15 (7-17) mg/dL Creatinine 0.65 (0.52-1.04) mg/dL Est GFR (CKD-EPI)AfAm >90 (>60 ml/min/1.73 sqM) Est GFR (CKD-EPI)NonAf >90 (>60 ml/min/1.73 sqM) Glucose 120 H (74-99) mg/dL Calcium 10.5 H (8.4-10.2) mg/dL Total Bilirubin 0.8 (0.2-1.3) mg/dL AST 20 (14-36) U/L ALT 13 (4-34) U/L Alkaline Phosphatase 165 H (38-126) U/L Total Protein 7.4 (6.3-8.2) g/dL Albumin 4.5 (3.5-5.0) g/dL - EKG Data Rate: normal EKG Comments: EKG was obtained at 1955 showing atrial fibrillation with incomplete right bundle branch block, right ventricular hypertrophy, and nonspecific T-wave abn ormality. Ventricular rate 78, ME interval indeterminate, QRS duration 106, QT/QTc is 378/411. Interpretation abnormal ECG. - Radiology Data Radiology results: report reviewed, image reviewed CT of the brain was obtained. Report was reviewed in its entirety. Impression per Dr. Fletcher is cerebral atrophy and chronic small vessel ischemia. No acute intracranial abnormality. No hemorrhage. Mild hydrocephalus. Breathing not changed compared to MRI scan of . Disposition Clinical Impression: Fall from standing, Head injury without concussion or intracranial hemorrhage Disposition: HOME SELF-CARE Condition: Stable Instructions (If sedation given, give patient instructions): Fall Prevention for Older Adults (ED), Head Injury (ED) Additional Instructions: Use your walker, especially when you will be on uneven ground. Expect to be sore tomorrow. May apply ice for no more than 20 minutes per hour. Continue taking your home medications as prescribed. Maintain mobility with frequent ambulation (walking). Follow up with your PCP on Tuesday for a recheck. Return to the ED with any confusion, change in mental status, repeated episodes of vomiting, or any other concerns. Is patient prescribed a controlled substance at d/c from ED?: No Referrals: Steve Dennis MD [Primary Care Provider] - 1-2 days Time of Disposition: 02:24
== END 2022-02-13 02:44 | disposition home or self-care (01) ==
LOC: EC 19:18
DX: S06.360A Traumatic hemorrhage of cerebrum, unspecified, without loss of consciousness, initial encounter (principal); I48.91 Unspecified atrial fibrillation; I11.0 Hypertensive heart disease with heart failure; I50.9 Heart failure, unspecified; K21.9 Gastro-esophageal reflux disease without esophagitis; E11.9 Type 2 diabetes mellitus without complications; F41.9 Anxiety disorder, unspecified; F32.A Depression, unspecified; Z79.891 Long term (current) use of opiate analgesic; Z79.899 Other long term (current) drug therapy; W01.0XXA Fall on same level from slipping, tripping and stumbling without subsequent striking against object, initial encounter
CPT/HCPCS: 36415; 70450; 80053; 85025; 85610; 85730; 93005; 99285

== ENCOUNTER 2022-03-08 20:45 | Emergency (ER) | payer MEDICARE, OTHER ==
[2022-03-08 20:54] VITALS: RESP 20; TEMP 97.8
[2022-03-08] MEDS ORDERED: ACETAMINOPHEN TAB 500 MG TAB PO STA ×2 (22:35→22:54)
[2022-03-08] MEDS ORDERED: KETOROLAC 15 MG/ML 1 ML VIAL IM STA (22:36)
[2022-03-08] MEDS ORDERED: MORPHINE SULFATE 4 MG/ML SYRINGE IM STA (22:36)
--- NOTE | 2022-03-08 22:36 | US ---
EXAMINATION TYPE: US venous doppler duplex LE RT DATE OF EXAM: 03/08/2022 10:06 PM COMPARISON: NONE CLINICAL HISTORY: pain behind right knee. pain behind right knee. On blood thinners, no hx of DVT SIDE PERFORMED: Right TECHNIQUE: The lower extremity deep venous system is examined utilizing real time linear array sonog doug with graded compression, doppler sonography and color-flow sonography. VESSELS IMAGED: Common Femoral Vein Deep Femoral Vein Greater Saphenous Vein * Femoral Vein Popliteal Vein Small Saphenous Vein * Proximal Calf Veins (* superficial vessels) Right Leg: Negative for DVT IMPRESSION: No evidence of deep vein thrombosis in the right leg.
--- NOTE | 2022-03-08 22:38 | ED ---
Extremity Problem HPI - General Chief complaint: Extremity Problem,Nontraumatic Stated complaint: RT leg pain Time Seen by Provider: 03/08/22 22:27 Source: patient, RN notes reviewed Mode of arrival: wheelchair Limitations: no limitations - History of Present Illness Initial comments: This is a pleasant 72-year-old female presents to emergency room with right leg pain which is following her for a few weeks. Patient went to her pain management doctor and was told she has a cyst behind her right knee. Patient states the pain has continued. Patient takes hydrocodone at home which she states she only takes once a day. Patient pain management with Dr. Durán. Denies any injury or fall. Denies any shortness of breath or chest pain. No distal paresthesias. No distal proximal injury. Pain behind the right knee, exacerbated by palpation and movement. No headache, no fever or chills, no changes in vision or hearing, no sore throat or difficulty with speech, no neck pain, no chest pain or shortness of breath, no abdominal pain, no nausea or vomiting, no changes in urination or bowel movements, no numbness or tingling, no extremity pain, no skin rashes or lesions. Past medical, surgical, social, and family history reviewed. - Related Data Home Medications Medication Instructions Recorded Confirmed amLODIPine [Norvasc] 5 mg PO DAILY 06/24/19 01/24/22 HYDROcodone/APAP 7.5-325MG [[place] 1 tab PO BID 08/07/20 01/24/22 7.5-325] Gabapentin [Neurontin] 300 mg PO DAILY 11/12/20 01/24/22 metFORMIN HCL [Glucophage] 1,000 mg PO BID 01/24/22 01/24/22 Previous Rx's Medication Instructions Recorded Apixaban [Eliquis] 5 mg PO BID #0 tab 06/27/19 Metoprolol Tartrate [Lopressor] 50 mg PO TID #90 tab 01/26/22 Allergies Allergy/AdvReac Type Severity Reaction Status Date / Time No Known Allergies Allergy Verified 02/12/22 19:20 Review of Systems ROS Statement: Those systems with pertinent positive or pertinent negative responses have been documented in the HPI. ROS Other: All systems not noted in ROS Statement are negative. 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 Spinal stenosis. Poss thyroid issue. Varicose veins,. History of Any Multi-Drug Resistant Organisms: None Reported Past Surgical History: Cholecystectomy, Heart Catheterization, Hernia Repair, Orthopedic Surgery Additional Past Surgical History / Comment(s): removed bone in left foot. Umbilical hernia ,CARDIOVERSION Past Anesthesia/Blood Transfusion Reactions: No Reported Reaction Past Psychological History: Anxiety, Depression Smoking Status: Former smoker Past Alcohol Use History: None Reported Past Drug Use History: None Reported - Past Family History Father History Unknown: Yes Sister(s) Family Medical History: Cancer Additional Family Medical History / Comment(s): breast cancer Mother Family Medical History: Deep Vein Thrombosis (DVT) General Exam Limitations: no limitations General appearance: alert, in no apparent distress Head exam: Present: atraumatic, normocephalic, normal inspection Eye exam: Present: normal appearance, PERRL, EOMI. Absent: scleral icterus, conjunctival injection, periorbital swelling ENT exam: Present: normal exam, mucous membranes moist Neck exam: Present: normal inspection. Absent: tenderness, meningismus, lymphadenopathy Respiratory exam: Present: normal lung sounds bilaterally. Absent: respiratory distress, wheezes, rales, rhonchi, stridor Cardiovascular Exam: Present: regular rate, normal rhythm, normal heart sounds. Absent: systolic murmur, diastolic murmur, rubs, gallop, clicks GI/Abdominal exam: Present: soft, normal bowel sounds. Absent: distended, tenderness, guarding, rebound, rigid Extremities exam: Present: normal inspection, full ROM, tenderness (Tenderness in the right popliteal space.), normal capillary refill, other (No evidence of infectious process. No evidence of vascular insult. Pulses intact, capillary refill less than 2 seconds). Absent: pedal edema, joint swelling, calf tenderness Back exam: Present: normal inspection Neurological exam: Present: alert, oriented X3, CN II-XII intact Psychiatric exam: Present: normal affect, normal mood Skin exam: Present: warm, dry, intact, normal color. Absent: rash Course Vital Signs 03/08/22 20:50 Temperature 97.8 F Pulse Rate 100 Respiratory 20 Rate Blood Pressure 160/92 O2 Sat by Pulse 99 Oximetry - Reevaluation(s) Reevaluation #1: 03/08/22 23:42 Medical record is reviewed Symptoms are improved here in the emergency department Patient is informed of results and questions answered Patient in no distress Medical Decision Making - Medical Decision Making Patient's workup shows no evidence of DVT. X-ray did show significant arthritic change. Physical examination was not consistent with vascular insult or infectious etiology. Patient had isolated right knee pain in the popliteal are a. No rash or lesion. Suspect the patient may have a Grover's cyst coupled with arthritic change. We'll have the patient follow-up with orthopedics. Three-view x-ray of the right knee interpreted by me reveals arthritic changes with no acute pathology. Concur with radiology interpretation. I did interpret the venous Doppler. No acute findings per my interpretation. Patient was told to return to the ER for any signs or symptoms worsen. Told to return immediately if any other problems arise. All questions answered. Treatment plan discussed. Patient in agreement Every effort has been made to ensure accuracy of this dictation. However, due to the limitations of electronic medical records and dictation devices, errors in charting still occur. Patient told to follow-up with her pain management physician for any further pain control. Applications Engineer [employer] Dr. Myers Disposition Clinical Impression: Arthralgia of right knee Narrative: Possible Grover's cyst Disposition: HOME SELF-CARE Condition: Good Instructions (If sedation given, give patient instructions): Knee Pain (ED), Arthralgia (ED) Additional Instructions: Call the orthopedic physician at 8 AM tomorrow morning to schedule an appointment. Follow-up with your regular physician as directed. Return to the ER immediately if any symptoms worsen, new symptoms arise, or any other problems develop. Call your pain management physician for further pain control options. Is patient prescribed a controlled substance at d/c from ED?: No Referrals: James Rouse DO [Doctor of Osteopathic Medicine] - 03/10/22 Time of Disposition: 23:43
[2022-03-08] MEDS ORDERED: ACETAMINOPHEN TAB 500 MG TAB PO PRN (22:55)
--- NOTE | 2022-03-08 23:19 | XR ---
EXAMINATION TYPE: XR knee complete RT DATE OF EXAM: 03/08/2022 COMPARISON: NONE HISTORY: Pain TECHNIQUE: 3 views FINDINGS: There is some narrowing of the medial joint space. There is spurring of the medial femoral and tibial condyles. No evidence of joint effusion. There is spurring on the anterior patella. IMPRESSION: There is some osteoarthritis in the medial joint space. No fracture.
[2022-03-09 00:05] VITALS: BP 148/77; PULSE 92
== END 2022-03-09 00:04 | disposition home or self-care (01) ==
LOC: EC 20:45
DX: M25.561 Pain in right knee (principal); I48.91 Unspecified atrial fibrillation; I11.0 Hypertensive heart disease with heart failure; I50.9 Heart failure, unspecified; E11.9 Type 2 diabetes mellitus without complications; F32.A Depression, unspecified; F41.9 Anxiety disorder, unspecified; G45.9 Transient cerebral ischemic attack, unspecified; Z79.899 Other long term (current) drug therapy; Z79.84 Long term (current) use of oral hypoglycemic drugs; Z87.891 Personal history of nicotine dependence
CPT/HCPCS: 73562; 93971; 99284; 96372 ×2; J2270; J1885

== ENCOUNTER → 2022-08-13 | Outpatient (CLI) | payer MEDICARE, OTHER ==
--- NOTE | 2022-08-13 17:45 | CT ---
EXAMINATION TYPE: CT right knee - [facility] Protocol DATE OF EXAM: 08/13/2022 COMPARISON: None HISTORY: 72-year-old female M1 7.11, right knee presurgical planning CT DLP: 757 mGycm. Automated exposure control for dose reduction was used. TECHNIQUE: CT of the right knee for surgical planning purposes. Additional scanning through the pelvi s, both knees, and both ankles. Coronal and sagittal reconstructions performed. FINDINGS: Right lateral bladder wall diverticulum measuring up to 1.3 cm. There is pelvic floor relaxation. Pel dimitris phleboliths. Mild degenerative change of both hips. There is moderate to severe tricompartmental degenerative change at the knee. No significant joint ef fusion or Grover's cyst. Underlying midfoot osteoarthrosis. A fixation screw is noted at the first metatarsal head/neck. IMPRESSION: Moderate to severe tricompartmental osteoarthrosis at the knee. Imaging for surgical planning purpose s.
== END | disposition home or self-care (01) ==
LOC: RADCTMAIN 14:04
PROVIDERS: ATTEND Orthopaedic Surgery
DX: Z01.818 Encounter for other preprocedural examination (principal); M17.0 Bilateral primary osteoarthritis of knee; E11.9 Type 2 diabetes mellitus without complications; M06.9 Rheumatoid arthritis, unspecified

== ENCOUNTER → 2022-09-06 | Outpatient (CLI) | payer MEDICARE, OTHER ==
[2022-09-06 16:07] LABS: ALT 9 U/L; AST 11 U/L; Albumin/Globulin Ratio 1.33 Ratio; Alkaline Phosphatase 147 U/L; BUN/Creat Ratio 14.86 Ratio; Blood Urea Nitrogen 10.4 mg/dL; Calcium 10.5 mg/dL; Carbon Dioxide 28.9 mmol/L; Chloride 104 mmol/L; Chol/HDL Ratio 4.46 Ratio; Glucose 126 mg/dL; LDL Cholesterol,Calculated 116.5 mg/dL; Potassium 4.1 mmol/L; Sodium 145 mmol/L; Total Bilirubin 0.9 mg/dL; VLDL Calculation 15.42 mg/dL
== END | disposition home or self-care (01) ==
LOC: LABWHC1 10:55
PROVIDERS: ATTEND Internal Medicine Interventional Cardiology
DX: I48.21 Permanent atrial fibrillation (principal); E78.2 Mixed hyperlipidemia
CPT/HCPCS: 36415; 80053; 80061; 84443

== ENCOUNTER 2022-09-08 09:29 | Day surgery (SDC) | payer MEDICARE, OTHER ==
[~2022-09-08 09:29] MED LIST changes: +ALPRAZolam 0.25 MG TAB PO PRN; +ALPRAZolam 0.5 MG TAB PO PRN; +ASPIRIN 325 MG TAB PO STA; +ATORVASTATIN 80 MG TAB PO STA; +HEPARIN SODIUM,PORCINE 10,000 UNIT in SODIUM CHLORIDE 0.9% 1,000 ML IRRIGATION PRN; +HEPARIN SODIUM,PORCINE 2,500 UNIT in SODIUM CHLORIDE 0.9% 250 ML IRRIGATION PRN; +NITROGLYCERIN SL TABS 0.4 MG TAB SUBLINGUAL PRN; -PROPOFOL 10 MG/ML 20 ML VIAL IV ONE; -SODIUM CHLORIDE 0.9% 1,000 ML BAG ONE; +SODIUM CHLORIDE 0.9% 1,000 ML in EMPTY BAG 1 BAG IV SCH
[2022-09-08] MEDS ORDERED: SODIUM CHLORIDE 0.9% 1,000 ML IV ONE (09:57)
[2022-09-08] MEDS ORDERED: ASPIRIN 81 MG PO ONE (10:00)
[2022-09-08] MEDS ORDERED: amLODIPine 5 MG TAB PO ONE (10:10)
[2022-09-08] MEDS ORDERED: HYDROcodone/APAP 7.5-325MG 1 EACH TAB PO ONE (10:10)
[2022-09-08 10:14] LABS: Glucose,Whole Blood 139 mg/dL (70-110)
[2022-09-08 10:16] VITALS: TEMP 98.1
[2022-09-08 10:19] LABS: Basophils % (A) 1 %; Eosinophils # (A) 0.2 k/uL (0-0.7); Eosinophils % (A) 2 %; HCT 37.7 % (34.0-46.0); HGB 11.7 gm/dL (11.4-16.0); Hypochromasia Slight; Lymphocytes # (A) 1.7 k/uL (1.0-4.8); Lymphocytes % (A) 22 %; MCH 27.2 pg (25.0-35.0); MCHC 31.1 g/dL (31.0-37.0); MCV 87.7 fL (80.0-100.0); Mean Platelet Volume 7.2; Monocytes # (A) 0.3 k/uL (0-1.0); Monocytes % (A) 4 %; Neutrophils # (A) 5.3 k/uL (1.3-7.7); Neutrophils % (A) 69 %; Platelet Count 346 k/uL (150-450); RDW 14.4 % (11.5-15.5); WBC 7.7 k/uL (3.8-10.6)
[2022-09-08] MEDS ORDERED: VERAPAMIL 2.5 MG/ML 2 ML AMP ONE (11:42)
[2022-09-08] MEDS ORDERED: fentaNYL (PF) 50 MCG/ML 2 ML AMP IV ONE (12:14)
[2022-09-08] MEDS ORDERED: LIDOCAINE 1% INJ 10MG/ML (5 ML VIAL-PF) SQ ONE (12:17)
[2022-09-08] MEDS ORDERED: MIDAZOLAM 2 MG/2 ML VIAL IV ONE (12:18)
[2022-09-08] MEDS ORDERED: VERAPAMIL SYRINGE (5 MG/10 ML) INTRAARTER ONE (12:19)
[2022-09-08] MEDS ORDERED: HEPARIN SODIUM 1,000 UN/ML (10ML VL) IV ONE (12:26)
[2022-09-08] MEDS ORDERED: METOPROLOL TARTRATE 5 MG/5 ML VIAL IVP ONE ×2 (12:32→12:35)
[2022-09-08] MEDS ORDERED: IOPAMIDOL-370 100ML BTL INJ ONE (12:36)
[2022-09-08] MEDS ORDERED: RX INFO: IV CONTRAST WAS GIVEN 1 EACH MISC MISCELLANE PRN (12:42)
[2022-09-08] MEDS ORDERED: SODIUM CHLORIDE 0.9% 1,000 ML IV SCH (12:45)
--- NOTE | 2022-09-08 12:49 | P.CARDCATH ---
Date of Procedure: 09/08/22 Description of Procedure: Cardiac Catheterization: The patient is a 72-year-old female with a known history of diabetes, atrial fibrillation, CAD has been complaining of dyspnea on exertion and has been evaluated to undergo orthopedic surgery. She had an abnormal MPI. Recommendations were made regarding cardiac catheterization, the risks and the complications were discussed with the patient who is in full understanding and agreement. Procedure Description: Patient was brought to research lab assistant in fasting semi-sedated state after receiving Fentanyl and Benadryl achieiving moderate conscious sedated state. Using Xylocaine Anesthesia and Seldinger technique, a 6-Filipino sheath was introduced in the left radial artery . Subsequently, selective coronary angiography was performed using a 5-Filipino 4 bend James catheter. Multiple views of the coronary artery including hemiaxial views were obtained. The 5-Filipino pigtail catheter was used to cross the aortic valve and LVEDP was calculated. Following that, catheter and sheath were removed. Hemostasis was obtained with deployment of TR band . There was no immediate complication. Patient was returned to room in stable condition. Of note, the patient received a total of 4500 units of intravenous heparin as well as intra-arterial verapamil. Findings: Left main: This is a large-size vessel, bifurcating into left circumflex and left anterior descending artery, left main has no high-grade stenosis LAD: This is a large-size vessel, reaching to the apex with a wraparound apex segment, giving rise to a diagonal branch of moderate caliber. The mid LAD has an eccentric 30-40% plaque, the rest of the vessel has no high-grade stenosis Left circumflex: This is a codominant vessel, giving rise to a PLV and PDA distally, giving rise to a very proximal OM, the second OM is in the mid segment. There is mild intimal disease in the second OM of 10 to 20% with no high-grade stenosis. RCA: This is a codominant vessel, moderate caliber. The RCA has no obstructive disease. Left Ventriculogram: Not performed Hemodynamics: There was no gradient across the aortic valve, LVEDP was 16 to 18 mmHg Conclusion: 1. Mild obstructive disease in the LAD and left circumflex 2. Codominant system 3. No obstructive disease in the RCA 4. Mildly elevated LVEDP Recommendations: The patient will continue on present medical therapy, she is stable to proceed with her scheduled surgery.. The findings and the recommendations were discussed with the patient and she was in full understanding Duration of sedation is 22 minutes.
[2022-09-08 15:47] VITALS: BP 135/89; PULSE 78
[2022-09-08 15:48] VITALS: RESP 18
[2022-09-09] MEDS ORDERED: PANTOPRAZOLE 40 MG TABLET PO SCH (07:30)
[2022-09-09] MEDS ORDERED: amLODIPine 5 MG TAB PO SCH (09:00)
== END 2022-09-08 16:33 | disposition home or self-care (01) ==
LOC: CATHCVL 09:29
PROVIDERS: ATTEND Internal Medicine Interventional Cardiology
DX: I25.10 Atherosclerotic heart disease of native coronary artery without angina pectoris (principal); E11.9 Type 2 diabetes mellitus without complications; I48.91 Unspecified atrial fibrillation; K21.9 Gastro-esophageal reflux disease without esophagitis; I10 Essential (primary) hypertension; M48.00 Spinal stenosis, site unspecified; I00 Rheumatic fever without heart involvement; Z86.73 Personal history of transient ischemic attack (TIA), and cerebral infarction without residual deficits; Z90.49 Acquired absence of other specified parts of digestive tract; Z79.84 Long term (current) use of oral hypoglycemic drugs; Z79.01 Long term (current) use of anticoagulants
CPT/HCPCS: 93458; 85025; C1769 ×2; C1894; J2250; J2001; J3010; J1644; Q9967

== ENCOUNTER 2022-10-15 23:48 | Observation (INO) | payer MEDICARE, OTHER ==
[2022-10-16 00:22] LABS: Basophils # (A) 0.1 k/uL (0-0.2); Basophils % (A) 1 %; Eosinophils # (A) 0.2 k/uL (0-0.7); Eosinophils % (A) 3 %; HCT 34.1 % (34.0-46.0); HGB 10.9 gm/dL (11.4-16.0); Hypochromasia Moderate; Lymphocytes # (A) 1.9 k/uL (1.0-4.8); Lymphocytes % (A) 25 %; MCH 27.9 pg (25.0-35.0); MCHC 31.8 g/dL (31.0-37.0); MCV 87.8 fL (80.0-100.0); Mean Platelet Volume 7.1; Monocytes # (A) 0.4 k/uL (0-1.0); Monocytes % (A) 6 %; Neutrophils % (A) 65 %; Platelet Count 323 k/uL (150-450); RBC 3.89 m/uL (3.80-5.40); RDW 14.9 % (11.5-15.5); WBC 7.6 k/uL (3.8-10.6)
--- NOTE | 2022-10-16 00:24 | ED ---
Chest Pain HPI - General Chief Complaint: Chest Pain Stated Complaint: Chest pain Time Seen by Provider: 10/16/22 00:03 Source: patient Mode of arrival: ambulatory - History of Present Illness Initial Comments: 72 year-old female with past medical history of A. fib, congestive heart failure, hypertension who presents to the emergency department reporting chest pain. States has been going on for the duration of the day. Located over the right chest wall. Denies any shortness of breath. No nausea or vomiting. She was given a nitro and states that it did help her pain. She does not have access to this at home. She recently had a cardiac cath which showed mild coronary disease. She has been taking her anticoagulation as directed. Denies any calf pain or swelling. Does have a history of congestive heart failure but does not take any water pills at home. No other alleviating, precipitating or modifying factors - Related Data Home Medications Medication Instructions Recorded Confirmed amLODIPine [Norvasc] 5 mg PO DAILY 06/24/19 10/16/22 HYDROcodone/APAP 7.5-325MG [[place] 1 tab PO BID PRN 08/07/20 10/16/22 7.5-325] metFORMIN HCL [Glucophage] 1,000 mg PO DAILY 01/24/22 10/16/22 Folic Acid 1 mg PO DAILY 09/07/22 10/16/22 HYDROcodone/APAP 10-325MG [[place] 1 tab PO DIRECTED PRN 10/16/22 10/16/22 10-325] metHOTREXate sodium [Methotrexate] 25 mg PO MO 10/16/22 10/16/22 Previous Rx's Medication Instructions Recorded Apixaban [Eliquis] 5 mg PO BID #0 tab 06/27/19 Amiodarone [Cordarone] 200 mg PO DAILY #30 tab 10/16/22 Metoprolol Tartrate [Lopressor] 50 mg PO BID #60 tab 10/16/22 Allergies Allergy/AdvReac Type Severity Reaction Status Date / Time No Known Allergies Allergy Verified 10/16/22 11:29 Review of Systems ROS Statement: Those systems with pertinent positive or pertinent negative responses have been documented in the HPI. ROS Other: All systems not noted in ROS Statement are negative. 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 Spinal stenosis. Poss thyroid issue. Varicose veins,. History of Any Multi-Drug Resistant Organisms: None Reported Past Surgical History: Cholecystectomy, Heart Catheterization, Hernia Repair, Orthopedic Surgery Additional Past Surgical History / Comment(s): removed bone in left foot. Umbilical hernia ,CARDIOVERSION Past Anesthesia/Blood Transfusion Reactions: No Reported Reaction Past Psychological History: Anxiety, Depression Past Alcohol Use History: None Reported Past Drug Use History: None Reported Additional Drug Use History / Comment(s): CBD gummies occ for pain, last 1 month ago - Past Family History Father History Unknown: Yes Sister(s) Family Medical History: Cancer Additional Family Medical History / Comment(s): breast cancer Mother Family Medical History: Deep Vein Thrombosis (DVT) General Exam General appearance: alert, in no apparent distress Head exam: Present: atraumatic, normocephalic, normal inspection Eye exam: Present: normal appearance, PERRL, EOMI. Absent: scleral icterus, conjunctival injection, periorbital swelling ENT exam: Present: normal exam, mucous membranes moist Neck exam: Present: normal inspection. Absent: tenderness, meningismus, lymphadenopathy Respiratory exam: Present: normal lung sounds bilaterally. Absent: respiratory distress, wheezes, rales, rhonchi, stridor Cardiovascular Exam: Present: regular rate, normal rhythm, normal heart sounds. Absent: systolic murmur, diastolic murmur, rubs, gallop, clicks GI/Abdominal exam: Present: soft, normal bowel sounds. Absent: distended, tenderness, guarding, rebound, rigid Extremities exam: Present: normal inspection, full ROM, normal capillary refill. Absent: tenderness, pedal edema, joint swelling, calf tenderness Back exam: Present: normal inspection Neurological exam: Present: alert, oriented X3, CN II-XII intact Psychiatric exam: Present: normal affect, normal mood Skin exam: Present: warm, dry, intact, normal color. Absent: rash Course Vital Signs 10/15/22 10/16/22 10/16/22 23:49 00:56 03:15 Temperature 98.4 F Pulse Rate 69 98 97 Respiratory 18 16 16 Rate Blood Pressure 170/121 156/124 160/120 O2 Sat by Pulse 96 99 98 Oximetry 07/15/23 07/15/23 04:15 05:15 Temperature Pulse Rate 89 80 Respiratory 16 16 Rate Blood Pressure 163/132 134/77 O2 Sat by Pulse 99 97 Oximetry Chest Pain MDM - MDM Was pt. sent in by a medical professional or institution (HESHAM Mayfield, COUNTY AUDITOR, urgent care, hospital, or halfway...) When possible be specific @ -No Did you speak to anyone other than the patient for history (EMS, parent, family, police, friend...)? What history was obtained from this source @ -EMS provided history. Did you review nursing and triage notes (agree or disagree)? Why? @ -I reviewed and agree with nursing and triage notes Were old charts reviewed (outside hosp., previous admission, EMS record, old EKG, old radiological studies, urgent care reports/EKG's, halfway records)? Report findings @ -I reviewed the patient's heart cath where she had mild coronary disease Differential Diagnosis (chest pain, altered mental status, abdominal pain women, abdominal pain men, vaginal bleeding, weakness, fever, dyspnea, syncope, headache, dizziness, GI bleed, back pain, seizure, CVA, palpatations, mental health, musculoskeletal)? @ -Differential Chest Pain: Stable Angina, Unstable Angina, STEMI, NSTEMI Aortic Dissection, Pneumothorax, Musculoskeletal, Esophageal Spasm GERD, Cholecystitis, Pancreatitis, Zoster, this is not meant to be an all-inclusive list. EKG interpreted by me (3pts min.). @ -Yes and demonstrates A. fib with a rate of 112. QRS 97. QTC of 403. No acute ST segment elevations or depressions X-rays interpreted by me (1pt min.). @ -Yes and demonstrates poor vascular congestion CT interpreted by me (1pt min.). @ -None done U/S interpreted by me (1pt. min.). @ -None done What testing was considered but not performed or refused? (CT, X-rays, U/S, labs)? Why? @ -None What meds were considered but not given or refused? Why? @ -None Did you discuss the management of the patient with other professionals ( professionals i.e. HESHAM Mayfield, COUNTY AUDITOR, lab, RT, psych nurse, psychologist social, sql database programmer, teacher, home lending officer, adult protective caseworker)? Give summary @ -Spoke with Any from [facility] who agreed to admit the patient Was smoking cessation discussed for >3mins.? @ -No Was critical care preformed (if so, how long)? @ -No Were there social determinants of health that impacted care today? How? (Homelessness, low income, unemployed, alcoholism, drug addiction, transportation, low edu. Level, literacy, decrease access to med. care, intermediate, rehab)? @ -No Was there de-escalation of care discussed even if they declined (Discuss DNR or withdrawal of care, Hospice)? DNR status @ -No What co-morbidities impacted this encounter? (DM, HTN, Smoking, COPD, CAD, Cancer, CVA, ARF, Chemo, Hep., AIDS, mental health diagnosis, sleep apnea, morbi d obesity)? @ -CHF, A. fib Was patient admitted / discharged? Hospital course, mention meds given and route, prescriptions, significant lab abnormalities, going to OR and other pertinent info. @ -Upon arrival patient was placed into room 7. A thorough history and physical exam was performed. IV access established laboratory studies were c onducted. BNP is elevated at 1860. Troponin is undetectable. 12-lead EKG demonstrates A. fib with a rapid rate. Chest x-ray demonstrates pulmonary vascular congestion. Patient was given a 1 time dose of Lasix. She is also given labetalol for her elevated blood pressures. Patient will be admitted for accelerated hypertension, pulmonary vascular congestion and chest pain. She was agreeable to this. Spoke with Any from [facility] who admitted the patient Undiagnosed new problem with uncertain prognosis? @ -Yes Drug Therapy requiring intensive monitoring for toxicity (Heparin, Nitro, Insulin, Cardizem)? @ -No Were any procedures done? @ -No Diagnosis/symptom? @ -Acute chest pain, A. fib with RVR, elevated BNP with pulmonary vascular congestion, accelerated hypertension Acute, or Chronic, or Acute on Chronic? @ -Acute Uncomplicated (without systemic symptoms) or Complicated (systemic symptoms)? @ -Complicated Side effects of treatment? @ -No Exacerbation, Progression, or Severe Exacerbation? @ -No Poses a threat to life or bodily function? How? (Chest pain, [place], [place], pneumonia, PE, COPD, DKA, ARF, appy, cholecystitis, CVA, Diverticulitis, Homicidal, Suicidal, threat to staff... and all critical care pts) @ -Yes patient does write with chest pain which may indicate coronary disease Disposition Clinical Impression: Congestive heart failure, Chest pain Disposition: ADMITTED IP TO THIS HOSP Condition: Good Is patient prescribed a controlled substance at d/c from ED?: No Time of Disposition: 04:08 Decision to Admit Reason: Admit from EC Decision Date: 10/16/22 Decision Time: 04:08
[2022-10-16 00:36] LABS: ALT 13 U/L (4-34); AST 20 U/L (14-36); African American GFR (CKD) >90 (>60 ml/min/1.73 sqM); Albumin 3.6 g/dL (3.5-5.0); Alkaline Phosphatase 123 U/L (38-126); Anion Gap 9 mmol/L; Blood Urea Nitrogen 17 mg/dL (7-17); Calcium 10.1 mg/dL (8.4-10.2); Carbon Dioxide 26 mmol/L (22-30); Chloride 107 mmol/L (98-107); Glucose 157 mg/dL (74-99); Lipase 32 U/L (23-300); Magnesium 1.7 mg/dL (1.6-2.3); Non-African American GFR(CKD) >90 (>60 ml/min/1.73 sqM); Potassium 3.5 mmol/L (3.5-5.1); Sodium 142 mmol/L (137-145); Total Protein 6.8 g/dL (6.3-8.2)
[2022-10-16 00:44] LABS: Partial Thromboplastin Time 26.5 sec (22.0-30.0); Prothrombin Time 10.7 sec (9.0-12.0)
[2022-10-16 01:04] VITALS: RESP 16
[2022-10-16] MEDS ORDERED: NITROGLYCERIN OINT 1 INCH/GM PACKET TOPICAL STA (03:37)
[2022-10-16] MEDS ORDERED: FUROSEMIDE 10 MG/ML 4 ML VIAL IV STA (03:39)
[2022-10-16] MEDS ORDERED: NALOXONE 0.4 MG/ML 1 ML VIAL IV PRN (04:09)
[2022-10-16] MEDS ORDERED: LABETALOL 5 MG/ML VIAL MDV IVP STA (04:18)
--- NOTE | 2022-10-16 04:43 | XR ---
EXAMINATION TYPE: XR chest 2V DATE OF EXAM: 10/16/2022 12:40 AM COMPARISON: Chest radiographs from 01/24/2022 TECHNIQUE: XR chest 2V Frontal and lateral views of the chest. CLINICAL INDICATION:Female, 72 years old with history of Chest Pain; FINDINGS: Lungs/Pleura: There is no evidence of pleural effusion, focal consolidation, or pneumothorax. Pulmonary vascularity: Pulmonary vascular congestion. Heart/mediastinum: Cardiomediastinal silhouette is enlarged and stable. Musculoskeletal: No acute osseous pathology. Stimulator leads project over the spine. IMPRESSION: Cardiomegaly and mild pulmonary vascular congestion. Correlate with BNP for congestive heart failure. Findings aren't significantly changed from prior.
[2022-10-16 07:38] VITALS: BP 127/85; PULSE 91; TEMP 97.8
[2022-10-16] MEDS ORDERED: PANTOPRAZOLE 40 MG TABLET PO SCH (08:00)
[2022-10-16] MEDS ORDERED: DEXTROSE 50% SYRINGE 50 ML IVP PRN ×2 (08:55)
[2022-10-16] MEDS ORDERED: HEPARIN SODIUM,PORCINE/PF 5,000 UNIT/0.5 ML SYRINGE SQ SCH ×2 (09:00)
[2022-10-16] MEDS ORDERED: APIXABAN 5 MG TAB PO SCH (09:00)
[2022-10-16] MEDS ORDERED: amLODIPine 5 MG TAB PO SCH (10:15)
[2022-10-16] MEDS ORDERED: AMIODARONE 200 MG TAB PO SCH (10:15)
[2022-10-16] MEDS ORDERED: METOPROLOL TARTRATE 50 MG TAB PO SCH (10:15)
[2022-10-16] MEDS ORDERED: INSULIN ASPART (NovoLOG) 100 UNIT/ML VIAL SQ SCH (12:30)
--- NOTE | 2022-10-16 12:39 | P.CRDCN ---
History of Present Illness Consult date: 10/16/22 Requesting physician: Vinod Andres Reason for Consult (text): chest pain Chief complaint: chest pain History of present illness: This Is a pleasant 72-year-old female patient who follows with Dr. Fatima in the office. She has a history of persistent atrial fibrillation, status post multiple cardioversions and ablation, recently went back into atrial fibrillation, hypertension, hyperlipidemia, asked her arthritis, considering total knee arthroplasty, recent cardiac catheterization as part of a preoperative evaluation which showed only mild CAD. At last office visit was discussed for possible MEG guided cardioversion and patient declined and she would like to have her knee surgery done but this has not been scheduled. She presented to the hospital with complaints of right sided chest and shoulder discomfort radiating into her back with tenderness to palpation and some swelling in the area. Cardiac enzymes have been negative. EKG shows atrial fibrillation. Vital signs were relatively stable blood pressures on the high side but her home medications were continued. Overall she's feeling somewhat better. NT proBNP was mildly elevated at 1860. She received one dose of IV [place] ix in the emergency room. She denies any shortness of breath. She has no edema, orthopnea or PND. Her weight has been stable at home. She denies any palpitations, dizziness or lightheadedness. She's had no syncope or near syncope. 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 Spinal stenosis. Poss thyroid issue. Varicose veins,. History of Any Multi-Drug Resistant Organisms: None Reported Past Surgical History: Cholecystectomy, Heart Catheterization, Hernia Repair, Orthopedic Surgery Additional Past Surgical History / Comment(s): removed bone in left foot. Umbilical hernia ,CARDIOVERSION Past Anesthesia/Blood Transfusion Reactions: No Reported Reaction Past Psychological History: Anxiety, Depression Smoking Status: Former smoker Past Alcohol Use History: None Reported Additional Past Alcohol Use History / Comment(s): Smoked 20 years, 1 ppd, quit 2002 Past Drug Use History: None Reported Additional Drug Use History / Comment(s): CBD gummies occ for pain, last 1 month ago - Past Family History Father History Unknown: Yes Sister(s) Family Medical History: Cancer Additional Family Medical History / Comment(s): breast cancer Mother Family Medical History: Deep Vein Thrombosis (DVT) Medications and Allergies Home Medications Medication Instructions Recorded Confirmed Type amLODIPine [Norvasc] 5 mg PO DAILY 06/24/19 10/16/22 History Apixaban [Eliquis] 5 mg PO BID #0 tab 06/27/19 10/16/22 Rx HYDROcodone/APAP 7.5-325MG [[place] 1 tab PO BID PRN 08/07/20 10/16/22 History 7.5-325] metFORMIN HCL [Glucophage] 1,000 mg PO DAILY 01/24/22 10/16/22 History Folic Acid 1 mg PO DAILY 09/07/22 10/16/22 History HYDROcodone/APAP 10-325MG [[place] 1 tab PO DIRECTED PRN 10/16/22 10/16/22 History 10-325] metHOTREXate sodium [Methotrexate] 25 mg PO MO 10/16/22 10/16/22 History Allergies Allergy/AdvReac Type Severity Reaction Status Date / Time No Known Allergies Allergy Verified 10/16/22 11:29 Physical Exam Vitals: Vital Signs Temp Pulse Pulse Resp BP BP Pulse Ox 10/16/22 07:00 97.8 F 91 16 127/85 99 10/16/22 05:15 80 16 134/77 97 10/16/22 04:15 89 16 163/132 99 10/16/22 03:15 97 16 160/120 98 10/16/22 00:56 98 16 156/124 99 10/15/22 23:49 98.4 F 69 18 170/121 96 Intake and Output 10/15/22 10/16/22 10/16/22 22:59 06:59 14:59 Other: Voiding Method Diaper Weight 90.718 kg PHYSICAL EXAMINATION: HEENT: Head is atraumatic, normocephalic. Pupils equal, round. Neck is supple. There is no elevated jugular venous pressure. HEART EXAMINATION: Heart sounds irregular rate and rhythm, S1 and S2 normal. No murmur or gallop heard. CHEST EXAMINATION: Lungs are clear to auscultation and precussion. No chest wall tenderness is noted on palpation or with deep breathing. ABDOMEN: Soft, nontender. Bowel sounds are heard. No organomegaly noted. EXTREMITIES: 2+ peripheral pulses with no evidence of peripheral edema and no calf tenderness noted. NEUROLOGIC patient is awake, alert and oriented x3. . Results 10/16/22 00:06 10/16/22 00:06 Cardiac Enzymes 10/16/22 10/16/22 10/16/22 Range/Units 00:06 00:06 06:50 AST 20 (14-36) U/L Troponin I <0.012 <0.012 (0.000-0.034) ng/mL 10/16/22 Range/Units 09:43 AST (14-36) U/L Troponin I <0.012 (0.000-0.034) ng/mL Coagulation 10/16/22 Range/Units 00:06 PT 10.7 (9.0-12.0) sec APTT 26.5 (22.0-30.0) sec CBC 10/16/22 Range/Units 00:06 WBC 7.6 (3.8-10.6) k/uL RBC 3.89 (3.80-5.40) m/uL Hgb 10.9 L (11.4-16.0) gm/dL Hct 34.1 (34.0-46.0) % Plt Count 323 (150-450) k/uL Comprehensive Metabolic Panel 10/16/22 Range/Units 00:06 Sodium 142 (137-145) mmol/L Potassium 3.5 (3.5-5.1) mmol/L Chloride 107 (98-107) mmol/L Carbon Dioxide 26 (22-30) mmol/L BUN 17 (7-17) mg/dL Creatinine 0.65 (0.52-1.04) mg/dL Glucose 157 H (74-99) mg/dL Calcium 10.1 (8.4-10.2) mg/dL AST 20 (14-36) U/L ALT 13 (4-34) U/L Alkaline Phosphatase 123 (38-126) U/L Total Protein 6.8 (6.3-8.2) g/dL Albumin 3.6 (3.5-5.0) g/dL Current Medications Generic Name Dose Route Start Last Admin Trade Name Freq PRN Reason Stop Dose Admin Amiodarone HCl 200 mg 10/16/22 10:10/16/22 10:02 Amiodarone 200 Mg Tab PO 200 mg DAILY EMMY Administration Amlodipine Besylate 5 mg 10/16/22 10:15 10/16/22 10:02 Amlodipine 5 Mg Tab PO 5 mg DAILY EMMY Administration Apixaban 5 mg 10/16/22 09:00 10/16/22 10:01 Apixaban 5 Mg Tab PO 5 mg BID EMMY Administration Protocol Dextrose/Water 25 ml 10/16/22 08:55 Dextrose 50% Syringe 50 Ml IVP PER PROTOCOL PRN Hypoglycemia Protocol Dextrose/Water 50 ml 10/16/22 08:55 Dextrose 50% Syringe 50 Ml IVP PER PROTOCOL PRN Hypoglycemia Protocol Insulin Aspart 0 unit 10/16/22 12:30 Insulin Aspart (Novolog) 100 Unit/Ml Vial SQ ACHS EMMY Protocol Metoprolol Tartrate 50 mg 10/16/22 10:15 10/16/22 10:02 Metoprolol Tartrate 50 Mg Tab PO 50 mg BID EMMY Administration Naloxone HCl 0.2 mg 10/16/22 04:09 Naloxone 0.4 Mg/Ml 1 Ml Vial IV Q2M PRN Opioid Reversal Pantoprazole Sodium 40 mg 10/16/22 08:00 10/16/22 10:02 Pantoprazole 40 Mg Tablet PO 40 mg [id number] EMMY Administration Intake and Output 10/15/22 10/16/22 10/16/22 22:59 06:59 14:59 Other: Voiding Method Diaper Weight 90.718 kg 10/16/22 00:06 10/16/22 00:06 Assessment and Plan Assessment: #1 symptoms of right-sided chest discomfort, likely musculoskeletal, no evidence of ischemia on EKG and troponins are unremarkable. #2 persistent atrial fibrillation #3 mild acute on chronic heart failure with preserved ejection fraction, likely secondary to atrial fibrillation #4 mild CAD #5 hypertension #6 hyperlipidemia #7 osteoarthritis, likely to be scheduled for right total knee arthroplasty Plan: From cardiology perspective medications were reviewed will resume home dose of amiodarone 200 mg by mouth daily, metoprolol titrate 50 mg by mouth twice a day and amlodipine 5 mg daily. Continue anticoagulation. Discussed with the patient option of cardioversion but would need to delay surgery for 6 weeks. At this time she would like to schedule her knee surgery. From our standpoint p atient may be discharged home she will follow-up in the office as an outpatient. PATIENT SAFETY OFFICER note has been reviewed, I agree with a documented findings and plan of care. Patient was seen and examined.
--- NOTE | 2022-10-16 14:14 | P.HPIM ---
History of Present Illness H&P Date: 10/16/22 History of present illness; patient is a 72-year-old lady with past medical si gnificant for diabetes mellitus, hypertension, persistent atrial fibrillation who presented to the ER because of chest pain. Patient is being seen outpatient by cardiology, patient has decent cardiac cath done which showed mild coronary disease. Patient was supposed to get MEG with cardioversion done but is waiting on her knee surgery. Patient stated she had been having right-sided chest pain, radiating to her shoulder, denies any shortness of breath. Denies any nausea or vomiting. Denies any palpitations. Because of this chest pain, patient came to the ER Initial lab work done in the ER showed WBC 7.6, hemoglobin 10.9, platelet count 323, sodium 140, potassium 3.5, BUN 17, creatinine 0.65 lipase 32, troponin 0.012, proBNP 180 Chest x-ray showed cardiomegaly and mild pulmonary vascular congestion, correlate ProBNP for congestive heart failure Patient admitted to medicine service REVIEW OF SYSTEMS: CONSTITUTIONAL: No fever, no malaise, no fatigue. HEENT: No recent visual problems or hearing problems. Denied any sore throat. CARDIOVASCULAR: As mentioned in HPI PULMONARY: No shortness of breath, no cough, no hemoptysis. GASTROINTESTINAL: No diarrhea, no nausea, no vomiting, no abdominal pain. NEUROLOGICAL: No headaches, no weakness, no numbness. HEMATOLOGICAL: Denies any bleeding or petechiae. GENITOURINARY: Denies any burning micturition, frequency, or urgency. MUSCULOSKELETAL/RHEUMATOLOGICAL: Denies any joint pain, swelling, or any muscle pain. ENDOCRINE: Denies any polyuria or polydipsia. The rest of the 14-point review of systems is negative. PHYSICAL EXAMINATION: GENERAL: The patient is alert and oriented x3, not in any acute distress. Well developed, well nourished. HEENT: Pupils are round and equally reacting to light. EOMI. No scleral icterus. No conjunctival pallor. Normocephalic, atraumatic. No pharyngeal erythema. No thyromegaly. CARDIOVASCULAR: S1 and S2 present. No murmurs, rubs, or gallops. PULMONARY: Chest is clear to auscultation, no wheezing or crackles. ABDOMEN: Soft, nontender, nondistended, normoactive bowel sounds. No palpable organomegaly. MUSCULOSKELETAL: No joint swelling or deformity. EXTREMITIES: No cyanosis, clubbing, or pedal edema. NEUROLOGICAL: Gross neurological examination did not reveal any focal deficits. SKIN: No rashes. Assessment and plan Chest pain Hypertension Persistent atrial fibrillation Chronic heart failure with preserved ejection fraction Diabetes mellitus Monitor vital signs Monitor CBC Monitor CMP Continue telemetry monitoring Trend troponin Serial EKGs Consult cardiology Resume home meds Labs and medication were reviewed.. Continue same treatment. Continue with symptomatic treatment. Resume home medication. Monitor labs and vitals. DVT and GI prophylaxis. 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 Spinal stenosis. Poss thyroid issue. Varicose veins,. History of Any Multi-Drug Resistant Organisms: None Reported Past Surgical History: Cholecystectomy, Heart Catheterization, Hernia Repair, Orthopedic Surgery Additional Past Surgical History / Comment(s): removed bone in left foot. Umbilical hernia ,CARDIOVERSION Past Anesthesia/Blood Transfusion Reactions: No Reported Reaction Past Psychological History: Anxiety, Depression Smoking Status: Former smoker Past Alcohol Use History: None Reported Additional Past Alcohol Use History / Comment(s): Smoked 20 years, 1 ppd, quit 2002 Past Drug Use History: None Reported Additional Drug Use History / Comment(s): CBD gummies occ for pain, last 1 month ago - Past Family History Father History Unknown: Yes Sister(s) Family Medical History: Cancer Additional Family Medical History / Comment(s): breast cancer Mother Family Medical History: Deep Vein Thrombosis (DVT) Medications and Allergies Home Medications Medication Instructions Recorded Confirmed Type amLODIPine [Norvasc] 5 mg PO DAILY 06/24/19 10/16/22 History Apixaban [Eliquis] 5 mg PO BID #0 tab 06/27/19 10/16/22 Rx HYDROcodone/APAP 7.5-325MG [[place] 1 tab PO BID PRN 08/07/20 10/16/22 History 7.5-325] metFORMIN HCL [Glucophage] 1,000 mg PO DAILY 01/24/22 10/16/22 History Folic Acid 1 mg PO DAILY 09/07/22 10/16/22 History Amiodarone [Cordarone] 200 mg PO DAILY #30 tab 07/15/23 Rx HYDROcodone/APAP 10-325MG [[place] 1 tab PO DIRECTED PRN 10/16/22 10/16/22 History 10-325] Metoprolol Tartrate [Lopressor] 50 mg PO BID #60 tab 10/16/22 Rx metHOTREXate sodium [Methotrexate] 25 mg PO MO 10/16/22 10/16/22 History Allergies Allergy/AdvReac Type Severity Reaction Status Date / Time No Known Allergies Allergy Verified 10/16/22 11:29 Physical Exam Vitals: Vital Signs Temp Pulse Pulse Resp BP BP Pulse Ox 10/16/22 07:00 97.8 F 91 16 127/85 99 10/16/22 05:15 80 16 134/77 97 10/16/22 04:15 89 16 163/132 99 10/16/22 03:15 97 16 160/120 98 10/16/22 00:56 98 16 156/124 99 10/15/22 23:49 98.4 F 69 18 170/121 96 Intake and Output 10/15/22 10/16/22 10/16/22 22:59 06:59 14:59 Other: Voiding Method Diaper Weight 90.718 kg Results CBC & Chem 7: 10/16/22 00:06 10/16/22 00:06 Labs: Abnormal Lab Results - Last 24 Hours (Table) 10/16/22 10/16/22 Range/Units 00:06 00:06 Hgb 10.9 L (11.4-16.0) gm/dL Glucose 157 H (74-99) mg/dL Thrombosis Risk Factor Assmnt - Choose All That Apply Each Factor Represents 1 point: Obesity (BMI >25) Each Risk Factor Represents 2 Points: Age 61-74 years Thrombosis Risk Factor Assessment Total Risk Factor Score: 3 Thrombosis Risk Factor Assessment Level: Moderate Risk
--- NOTE | 2022-10-16 14:20 | P.DS ---
Providers Date of admission: 10/16/22 04:09 Expected date of discharge: 10/16/22 Attending physician: Vinod Andres Consults: 10/16/22 04:09 Consult Physician Urgent Consulting Provider: [facility] Consult Reason/Comments: acute chest pain, pulmonary vascular congestion Do you want consulting provider notified?: Yes Primary care physician: [facility] Course: Discharge diagnoses; Chest pain Hypertension Persistent atrial fibrillation Chronic heart failure with preserved ejection fraction Diabetes mellitus Hospital course; patient is a 72-year-old lady with past medical significant for diabetes mellitus, hypertension, persistent atrial fibrillation who presented to the ER because of chest pain. Patient is being seen outpatient by cardiology, patient has decent cardiac cath done which showed mild coronary disease. Patient was supposed to get MEG with cardioversion done but is waiting on her knee surgery. Patient stated she had been having right-sided chest pain, radiating to her shoulder, denies any shortness of breath. Denies any nausea or vomiting. Denies any palpitations. Because of this chest pain, patient came to the ER Initial lab work done in the ER showed WBC 7.6, hemoglobin 10.9, platelet count 323, sodium 140, potassium 3.5, BUN 17, creatinine 0.65 lipase 32, troponin 0.012, proBNP 180 Chest x-ray showed cardiomegaly and mild pulmonary vascular congestion, correlate ProBNP for congestive heart failure Patient admitted to medicine service 10/16. Patient seen and examined. Troponin continued to be flat. Chest pain has improved. Cardiology evaluated the patient offered patient to have MEG with cardioversion done but patient at this time declined, wants to get the surgery done first PHYSICAL EXAMINATION: GENERAL: The patient is alert and oriented x3, not in any acute distress. Well developed, well nourished. HEENT: Pupils are round and equally reacting to light. EOMI. No scleral icterus. No conjunctival pallor. Normocephalic, atraumatic. No pharyngeal erythema. No thyromegaly. CARDIOVASCULAR: S1 and S2 present. No murmurs, rubs, or gallops. PULMONARY: Chest is clear to auscultation, no wheezing or crackles. ABDOMEN: Soft, nontender, nondistended, normoactive bowel sounds. No palpable organomegaly. MUSCULOSKELETAL: No joint swelling or deformity. EXTREMITIES: No cyanosis, clubbing, or pedal edema. NEUROLOGICAL: Gross neurological examination did not reveal any focal deficits. SKIN: No rashes. Patient Condition at Discharge: Good Plan - Discharge Summary New Discharge Prescriptions: New Amiodarone [Cordarone] 200 mg PO DAILY #30 tab Metoprolol Tartrate [Lopressor] 50 mg PO BID #60 tab Continue amLODIPine [Norvasc] 5 mg PO DAILY Apixaban [Eliquis] 5 mg PO BID #0 tab HYDROcodone/APAP 7.5-325MG [[place] 7.5-325] 1 tab PO BID PRN PRN Reason: Pain Folic Acid 1 mg PO DAILY metHOTREXate sodium [Methotrexate] 25 mg PO MO HYDROcodone/APAP 10-325MG [[place] 10-325] 1 tab PO DIRECTED PRN PRN Reason: Pain metFORMIN HCL [Glucophage] 1,000 mg PO DAILY Discharge Medication List amLODIPine [Norvasc] 5 mg PO DAILY 06/24/19 [History] Apixaban [Eliquis] 5 mg PO BID #0 tab 06/27/19 [Rx] HYDROcodone/APAP 7.5-325MG [[place] 7.5-325] 1 tab PO BID PRN 08/07/20 [History] metFORMIN HCL [Glucophage] 1,000 mg PO DAILY 01/24/22 [History] Folic Acid 1 mg PO DAILY 09/07/22 [History] Amiodarone [Cordarone] 200 mg PO DAILY #30 tab 10/16/22 [Rx] HYDROcodone/APAP 10-325MG [[place] 10-325] 1 tab PO DIRECTED PRN 10/16/22 [History] Metoprolol Tartrate [Lopressor] 50 mg PO BID #60 tab 10/16/22 [Rx] metHOTREXate sodium [Methotrexate] 25 mg PO MO 10/16/22 [History] Follow up Appointment(s)/Referral(s): Allen Jolly MD [STAFF PHYSICIAN] - 1 Week Kye Mitchell DO [Primary Care Provider] - 1-2 days
== END 2022-10-16 14:54 | disposition home or self-care (01) ==
LOC: EC 23:48 → 6NMEDSUR 10-16 04:09
PROVIDERS: ADMIT Hospitalist; ATTEND Hospitalist
DX: R07.89 Other chest pain (principal); I11.0 Hypertensive heart disease with heart failure; I50.33 Acute on chronic diastolic (congestive) heart failure; I48.19 Other persistent atrial fibrillation; E11.9 Type 2 diabetes mellitus without complications; I25.10 Atherosclerotic heart disease of native coronary artery without angina pectoris; K21.9 Gastro-esophageal reflux disease without esophagitis; I83.90 Asymptomatic varicose veins of unspecified lower extremity; I69.954 Hemiplegia and hemiparesis following unspecified cerebrovascular disease affecting left non-dominant side; M48.00 Spinal stenosis, site unspecified; E78.5 Hyperlipidemia, unspecified; M19.90 Unspecified osteoarthritis, unspecified site; F32.A Depression, unspecified; F41.9 Anxiety disorder, unspecified; E66.9 Obesity, unspecified; Z68.34 Body mass index [BMI] 34.0-34.9, adult; Z79.84 Long term (current) use of oral hypoglycemic drugs; Z79.01 Long term (current) use of anticoagulants; Z79.899 Other long term (current) drug therapy; Z90.49 Acquired absence of other specified parts of digestive tract; Z87.891 Personal history of nicotine dependence; Z98.890 Other specified postprocedural states; Z80.3 Family history of malignant neoplasm of breast; Z82.49 Family history of ischemic heart disease and other diseases of the circulatory system
CPT/HCPCS: 96374; 96375; 99285; 36415; 93005; 83880; 80053; 83690; 83735; 84484; 85025; 85610; 85730; 71046; G0378; J1940

== ENCOUNTER 2022-11-09 01:30 | Emergency (ER) | payer MEDICARE, OTHER ==
[2022-11-09 01:37] VITALS: TEMP 98.1
[2022-11-09] MEDS ORDERED: MORPHINE SULFATE 2 MG/ML SYRINGE IVP STA (01:49)
[2022-11-09 02:18] LABS: Anisocytosis Slight; Basophils % (A) 1 %; Eosinophils # (A) 0.3 k/uL (0-0.7); Eosinophils % (A) 5 %; HCT 32.8 % (34.0-46.0); HGB 10.3 gm/dL (11.4-16.0); Hypochromasia Moderate; Lymphocytes # (A) 1.6 k/uL (1.0-4.8); Lymphocytes % (A) 26 %; MCH 27.4 pg (25.0-35.0); MCHC 31.5 g/dL (31.0-37.0); Mean Platelet Volume 7.7; Monocytes # (A) 0.4 k/uL (0-1.0); Monocytes % (A) 7 %; Neutrophils # (A) 3.5 k/uL (1.3-7.7); Neutrophils % (A) 60 %; Platelet Count 357 k/uL (150-450); RBC 3.77 m/uL (3.80-5.40); RDW 16.2 % (11.5-15.5); WBC 5.9 k/uL (3.8-10.6)
--- NOTE | 2022-11-09 02:18 | ED ---
General Adult HPI - General Chief complaint: Abdominal Pain Stated complaint: Back pain Time Seen by Provider: 11/09/22 01:34 Source: patient, RN notes reviewed, old records reviewed Mode of arrival: ambulatory Limitations: no limitations - History of Present Illness Initial comments: 72-year-old female presents for evaluation of right flank pain. Patient denies trauma or injury. Denies fever. She states she has had associated nausea and vomiting. Patient denies abdominal pain. Denies chest pain. Denies dysuria or hematuria. - Related Data Home Medications Medication Instructions Recorded Confirmed amLODIPine [Norvasc] 5 mg PO DAILY 06/24/19 10/16/22 HYDROcodone/APAP 7.5-325MG [[place] 1 tab PO BID PRN 08/07/20 10/16/22 7.5-325] metFORMIN HCL [Glucophage] 1,000 mg PO DAILY 01/24/22 10/16/22 Folic Acid 1 mg PO DAILY 09/07/22 10/16/22 HYDROcodone/APAP 10-325MG [[place] 1 tab PO DIRECTED PRN 10/16/22 10/16/22 10-325] metHOTREXate sodium [Methotrexate] 25 mg PO MO 10/16/22 10/16/22 Previous Rx's Medication Instructions Recorded Apixaban [Eliquis] 5 mg PO BID #0 tab 06/27/19 Amiodarone [Cordarone] 200 mg PO DAILY #30 tab 10/16/22 Metoprolol Tartrate [Lopressor] 50 mg PO BID #60 tab 10/16/22 Allergies Allergy/AdvReac Type Severity Reaction Status Date / Time No Known Allergies Allergy Verified 11/09/22 01:37 Review of Systems ROS Statement: Those systems with pertinent positive or pertinent negative responses have been documented in the HPI. ROS Other: All systems not noted in ROS Statement are negative. 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 Spinal stenosis. Poss thyroid issue. Varicose veins,. History of Any Multi-Drug Resistant Organisms: None Reported Past Surgical History: Cholecystectomy, Heart Catheterization, Hernia Repair, Orthopedic Surgery Additional Past Surgical History / Comment(s): removed bone in left foot. Umbilical hernia ,CARDIOVERSION Past Anesthesia/Blood Transfusion Reactions: No Reported Reaction Past Psychological History: Anxiety, Depression Smoking Status: Former smoker Past Alcohol Use History: None Reported Past Drug Use History: None Reported - Past Family History Father History Unknown: Yes Sister(s) Family Medical History: Cancer Additional Family Medical History / Comment(s): breast cancer Mother Family Medical History: Deep Vein Thrombosis (DVT) General Exam Limitations: no limitations General appearance: alert, in no apparent distress Head exam: Present: atraumatic, normocephalic Eye exam: Present: normal appearance, PERRL ENT exam: Present: normal exam Neck exam: Present: normal inspection. Absent: tenderness, meningismus Respiratory exam: Present: normal lung sounds bilaterally. Absent: respiratory distress Cardiovascular Exam: Present: normal rhythm, tachycardia GI/Abdominal exam: Present: soft, distended. Absent: tenderness, guarding, rebound Extremities exam: Present: normal capillary refill Back exam: Present: CVA tenderness (R) Neurological exam: Present: alert, oriented X3, CN II-XII intact. Absent: motor sensory deficit Psychiatric exam: Present: normal affect, normal mood Skin exam: Present: warm, dry, intact. Absent: cyanosis, diaphoretic Course Vital Signs 11/09/22 11/09/22 11/09/22 01:34 02:08 04:18 Temperature 98.1 F Pulse Rate 129 H Respiratory 20 17 Rate Blood Pressure 155/87 163/101 169/145 O2 Sat by Pulse 99 Oximetry 11/09/22 04:54 Temperature Pulse Rate 112 H Respiratory 18 Rate Blood Pressure 161/122 O2 Sat by Pulse 97 Oximetry Medical Decision Making - Medical Decision Making Was pt. sent in by a medical professional or institution (, PA, MAGNETIC HEALER, urgent care, hospital, or half-way...) When possible be specific @ -No Did you speak to anyone other than the patient for history (EMS, parent, family, police, friend...)? What history was obtained from this source @ -No Did you review nursing and triage notes (agree or disagree)? Why? @ -I reviewed and agree with nursing and triage notes Were old charts reviewed (outside hosp., previous admission, EMS record, old EKG, old radiological studies, urgent care reports/EKG's, half-way records)? Report findings @ -No old charts were reviewed Differential Diagnosis (chest pain, altered mental status, abdominal pain women, abdominal pain men, vaginal bleeding, weakness, fever, dyspnea, syncope, headache, dizziness, GI bleed, back pain, seizure, CVA, palpatations, mental h ealth, musculoskeletal)? @ Differential Abdominal Pain Women: Appendicitis, Cholecystitis, diverticulosis, ischemic bowel, pancreatitis, hepatitis, UTI, gastroenteritis, AAA, incarcerated hernia, bowel obstruction, constipation, inflammatory bowel, hepatitis, peptic ulcer disease, splenic infarction, perforated viscus, vulvitis, ovarian torsion, PID, kidney stone, placenta abruption, this is not meant to be an all-inclusive list EKG interpreted by me (3pts min.). @ -As above X-rays interpreted by me (1pt min.). @ -None done CT interpreted by me (1pt min.). @ -[CT of the abdomen and pelvis performed, no acute intra-abdominal process, there is a lung nodule visualized on CT which will require surveillance, patient is informed. U/S interpreted by me (1pt. min.). @ -None done What testing was considered but not performed or refused? (CT, X-rays, U/S, labs)? Why? @ -None What meds were considered but not given or refused? Why? @ -None Did you discuss the management of the patient with other professionals (professionals i.e. , PA, MAGNETIC HEALER, lab, RT, psych nurse, social worker aide, right of way buyer, teacher, sewage reticulation drafting officer, assistant case manager)? Give summary @ -No Was smoking cessation discussed for >3mins.? @ -No Was critical care preformed (if so, how long)? @ -No Were there social determinants of health that impacted care today? How? (Homelessness, low income, unemployed, alcoholism, drug addiction, transportation, low edu. Level, literacy, decrease access to med. care, fci, rehab)? @ -No Was there de-escalation of care discussed even if they declined (Discuss DNR or withdrawal of care, Hospice)? DNR status @ -No What co-morbidities impacted this encounter? (DM, HTN, Smoking, COPD, CAD, Cancer, CVA, ARF, Chemo, Hep., AIDS, mental health diagnosis, sleep apnea, morbid obesity)? @Atrial fibrillation Was patient admitted / discharged? Hospital course, mention meds given and route, prescriptions, significant lab abnormalities, going to OR and other pertinent info. @9-year-old female with right flank pain, CT is performed which is negative for acute process, no hydronephrosis, patient has a normal appendix on imaging. She has normal white blood cell count(anemia. Normal electrolytes. Negative lactic acid. No specific cause is found for this patient's flank pain, may be musculoskeletal in nature. Patient should follow with her primary care provider. Undiagnosed new problem with uncertain prognosis? @ -No Drug Therapy requiring intensive monitoring for toxicity (Heparin, Nitro, Insulin, Cardizem)? @ -No Were any procedures done? @ -No Diagnosis/symptom? @Right flank pain Acute, or Chronic, or Acute on Chronic? @ -[Acute Uncomplicated (without systemic symptoms) or Complicated (systemic symptoms)? @ -default Side effects of treatment? @ -No Exacerbation, Progression, or Severe Exacerbation? @ -No Poses a threat to life or bodily function? How? (Chest pain, [place], [place], pneumonia, PE, COPD, DKA, ARF, appy, cholecystitis, CVA, Diverticulitis, Homicidal, Suicidal, threat to staff... and all critical care pts) @ -[Low risk at this time - Lab Data Result diagrams: 11/09/22 01:49 11/09/22 01:49 Lab Results 11/09/22 11/09/22 11/09/22 Range/Units 01:49 01:49 01:49 WBC 5.9 (3.8-10.6) k/uL RBC 3.77 L (3.80-5.40) m/uL Hgb 10.3 L (11.4-16.0) gm/dL Hct 32.8 L (34.0-46.0) % MCV 87.0 (80.0-100.0) fL MCH 27.4 (25.0-35.0) pg MCHC 31.5 (31.0-37.0) g/dL RDW 16.2 H (11.5-15.5) % Plt Count 357 (150-450) k/uL MPV 7.7 Neutrophils % 60 % Lymphocytes % 26 % Monocytes % 7 % Eosinophils % 5 % Basophils % 1 % Neutrophils # 3.5 (1.3-7.7) k/uL Lymphocytes # 1.6 (1.0-4.8) k/uL Monocytes # 0.4 (0-1.0) k/uL Eosinophils # 0.3 (0-0.7) k/uL Basophils # 0.0 (0-0.2) k/uL Hypochromasia Moderate Anisocytosis Slight PT 10.4 (9.0-12.0) sec INR 1.0 (<1.2) APTT 25.9 (22.0-30.0) sec Sodium 145 (137-145) mmol/L Potassium 3.7 (3.5-5.1) mmol/L Chloride 111 H (98-107) mmol/L Carbon Dioxide 27 (22-30) mmol/L Anion Gap 7 mmol/L BUN 20 H (7-17) mg/dL Creatinine 0.61 (0.52-1.04) mg/dL Est GFR (CKD-EPI)AfAm >90 (>60 ml/min/1.73 sqM) Est GFR (CKD-EPI)NonAf >90 (>60 ml/min/1.73 sqM) Glucose 136 H (74-99) mg/dL Plasma Lactic Acid Philip (0.7-2.0) mmol/L Calcium 9.9 (8.4-10.2) mg/dL Total Bilirubin 0.6 (0.2-1.3) mg/dL AST 17 (14-36) U/L ALT 16 (4-34) U/L Alkaline Phosphatase 148 H (38-126) U/L Total Protein 6.8 (6.3-8.2) g/dL Albumin 3.6 (3.5-5.0) g/dL Lipase 29 (23-300) U/L 11/09/22 Range/Units 01:49 WBC (3.8-10.6) k/uL RBC (3.80-5.40) m/uL Hgb (11.4-16.0) gm/dL Hct (34.0-46.0) % MCV (80.0-100.0) fL MCH (25.0-35.0) pg MCHC (31.0-37.0) g/dL RDW (11.5-15.5) % Plt Count (150-450) k/uL MPV Neutrophils % % Lymphocytes % % Monocytes % % Eosinophils % % Basophils % % Neutrophils # (1.3-7.7) k/uL Lymphocytes # (1.0-4.8) k/uL Monocytes # (0-1.0) k/uL Eosinophils # (0-0.7) k/uL Basophils # (0-0.2) k/uL Hypochromasia Anisocytosis PT (9.0-12.0) sec INR (<1.2) APTT (22.0-30.0) sec Sodium (137-145) mmol/L Potassium (3.5-5.1) mmol/L Chloride (98-107) mmol/L Carbon Dioxide (22-30) mmol/L Anion Gap mmol/L BUN (7-17) mg/dL Creatinine (0.52-1.04) mg/dL Est GFR (CKD-EPI)AfAm (>60 ml/min/1.73 sqM) Est GFR (CKD-EPI)NonAf (>60 ml/min/1.73 sqM) Glucose (74-99) mg/dL Plasma Lactic Acid Philip 1.1 (0.7-2.0) mmol/L Calcium (8.4-10.2) mg/dL Total Bilirubin (0.2-1.3) mg/dL AST (14-36) U/L ALT (4-34) U/L Alkaline Phosphatase (38-126) U/L Total Protein (6.3-8.2) g/dL Albumin (3.5-5.0) g/dL Lipase (23-300) U/L Disposition Clinical Impression: Abdominal pain, Lung nodule Disposition: HOME SELF-CARE Condition: Fair Instructions (If sedation given, give patient instructions): Abdominal Pain (ED) Additional Instructions: Please follow up with primary care regarding lung nodule Is patient prescribed a controlled substance at d/c from ED?: No Referrals: Kye Mitchell DO [Primary Care Provider] - 1-2 days Time of Disposition: 05:18
[2022-11-09 02:41] LABS: ALT 16 U/L (4-34); AST 17 U/L (14-36); African American GFR (CKD) >90 (>60 ml/min/1.73 sqM); Albumin 3.6 g/dL (3.5-5.0); Alkaline Phosphatase 148 U/L (38-126); Anion Gap 7 mmol/L; Blood Urea Nitrogen 20 mg/dL (7-17); Calcium 9.9 mg/dL (8.4-10.2); Carbon Dioxide 27 mmol/L (22-30); Chloride 111 mmol/L (98-107); Glucose 136 mg/dL (74-99); Lipase 29 U/L (23-300); Non-African American GFR(CKD) >90 (>60 ml/min/1.73 sqM); Potassium 3.7 mmol/L (3.5-5.1); Sodium 145 mmol/L (137-145); Total Bilirubin 0.6 mg/dL (0.2-1.3); Total Protein 6.8 g/dL (6.3-8.2)
[2022-11-09 02:59] LABS: Partial Thromboplastin Time 25.9 sec (22.0-30.0); Prothrombin Time 10.4 sec (9.0-12.0)
--- NOTE | 2022-11-09 04:08 | CT ---
EXAM: CT Abdomen and Pelvis Without Intravenous Contrast CLINICAL HISTORY: CT Reason: rt flank pain TECHNIQUE: Axial computed tomography images of the abdomen and pelvis without intravenous contrast. CTDI is 12.7 mGy and DLP is 668.8 mGy-cm. This CT exam was performed using one or more of the following dose reduction techniques: automated exposure control, adjustment of the mA and/or kV according to patient size, and/or use of iterative reconstruction technique. COMPARISON: No relevant prior studies available. FINDINGS: Lung bases: 6 and 8 mm nodular densities in the right lower lobe associated with scarring or atelectasis. Heart: The heart is enlarged. ABDOMEN: Liver: Unremarkable. Gallbladder and bile ducts: The gallbladder has been removed. No biliary duct dilation is seen. Pancreas: Unremarkable. No ductal dilation. Spleen: Unremarkable. No splenomegaly. Adrenals: Unremarkable. No mass. Kidneys and ureters: The kidneys are unremarkable. No hydronephrosis or ureterolithiasis is seen. Stomach and bowel: Unremarkable. No obstruction. No mucosal thickening. PELVIS: Appendix: Bowel loops are nondilated. The appendix is normal. No acute inflammatory changes are seen involving the bowel. Bladder: Unremarkable. No stones. Reproductive: Unremarkable as visualized. ABDOMEN and PELVIS: Intraperitoneal space: The uterus is absent. No free fluid is seen in the pelvis. No free air. Bones/joints: Moderate degenerative changes throughout the spine. No acute fracture or subluxation is seen. Soft tissues: Unremarkable. Vasculature: The abdominal aorta is mildly calcified but nondilated. Lymph nodes: Unremarkable. No enlarged lymph nodes. Tubes, lines and devices: There is an electronic stimulating device with leads running to the spine. IMPRESSION: 1. The kidneys are unremarkable. No hydronephrosis or ureterolithiasis is seen. 2. Bowel loops are nondilated. The appendix is normal. No acute inflammatory changes are seen involving the bowel. 3. 6 and 8 mm nodular densities in the right lower lobe associated with scarring or atelectasis. [employer] recommends imaging of the entire chest for further characterization.
[2022-11-09] MEDS ORDERED: MORPHINE SULFATE 4 MG/ML SYRINGE IVP STA (04:27)
[2022-11-09 05:21] LABS: Appearance,Urine Cloudy (Clear); Bacteria,Urine Rare /hpf; Bilirubin,Urine Negative (Negative); Blood,Urine Negative (Negative); Color,Urine Yellow; Glucose,Urine (UA) Negative (Negative); Hyaline Casts,Urine 1 /lpf (0-2); Ketones,Urine Negative (Negative); Leukocyte Esterase,Urine Negative (Negative); Mucus,Urine Few /hpf; Nitrite,Urine Negative (Negative); PH, Urine 5.5 (5.0-8.0); Protein,Urine 1+ (Negative); RBC,Urine 3 /hpf (0-5); Specific Gravity,Urine 1.027 (1.001-1.035); Squamous Epithelial Cell,Urine 5 /hpf (0-4); Urobilinogen,Urine <2.0 mg/dL (<2.0); WBC,Urine 3 /hpf (0-5)
[2022-11-09 06:15] VITALS: BP 151/131; PULSE 77; RESP 17
== END 2022-11-09 06:25 | disposition home or self-care (01) ==
LOC: EC 01:30
DX: R91.1 Solitary pulmonary nodule (principal); R10.9 Unspecified abdominal pain; E11.9 Type 2 diabetes mellitus without complications; I11.0 Hypertensive heart disease with heart failure; I50.9 Heart failure, unspecified; M06.9 Rheumatoid arthritis, unspecified; Z79.84 Long term (current) use of oral hypoglycemic drugs; Z79.899 Other long term (current) drug therapy; Z90.49 Acquired absence of other specified parts of digestive tract; Z87.891 Personal history of nicotine dependence
CPT/HCPCS: 36415; 80053; 83605; 83690; 85025; 85610; 85730; 81001; 74176; 99284; 96374; 96376; J2270 ×2

== ENCOUNTER → 2022-11-25 | Outpatient (CLI) | payer MEDICARE, OTHER ==
[2022-11-25 10:48] LABS: Prothrombin Time 10.3 sec (9.0-12.0)
[2022-11-25 10:49] LABS: Partial Thromboplastin Time 25.6 sec (22.0-30.0)
[2022-11-25 15:24] LABS: ALT 11 U/L (8-44); AST 17 U/L (13-35); Albumin 4.2 d/dL (3.8-4.9); Alkaline Phosphatase 131 U/L (41-126); BUN/Creat Ratio 13.55 Ratio (12.00-20.00); Blood Urea Nitrogen 14.9 mg/dL (9.0-27.0); Carbon Dioxide 29.7 mmol/L (21.6-31.8); Chloride 105 mmol/L (96-109); Glucose 115 mg/dL (70-110); Potassium 4.1 mmol/L (3.5-5.5); Sodium 144 mmol/L (135-145); Total Bilirubin 0.8 mg/dL (0.3-1.2); Total Protein 7.2 d/dL (6.2-8.2)
[2022-11-25 17:02] LABS: Appearance,Urine Cloudy (Clear); Bilirubin,Urine Negative (Negative); Blood,Urine Negative (Negative); Color,Urine Yellow (Yellow); Ketones,Urine Trace (Negative); Nitrite,Urine Negative (Negative); Specific Gravity,Urine 1.023 (1.001-1.030)
[2022-11-25 17:49] LABS: HCT 38.8 % (37.2-46.3); HGB 11.5 d/dL (12.0-15.0); MCH 25.8 pg (27.0-32.0); MCHC 29.6 d/dL (32.0-37.0); MCV 87.2 FL (80.0-97.0); Mean Platelet Volume 9.1 FL (9.5-12.2); NRBC Per 100 WBC 0 X 10*3/uL (0.00-0.01); Platelet Count 344 X 10*3/uL (140-440); RBC 4.45 X 10*6/uL (4.10-5.20); RDW 15.7 % (11.5-14.5); WBC 6.32 X 10*3/uL (4.50-10.00)
[2022-11-25 18:43] LABS: Bacteria,Urine 2+ (None Seen)
== END | disposition home or self-care (01) ==
LOC: LABPAT 09:05
PROVIDERS: ATTEND Orthopaedic Surgery
DX: Z01.818 Encounter for other preprocedural examination (principal); M17.11 Unilateral primary osteoarthritis, right knee; I51.7 Cardiomegaly; I45.10 Unspecified right bundle-branch block; I48.91 Unspecified atrial fibrillation; R94.31 Abnormal electrocardiogram [ECG] [EKG]
CPT/HCPCS: 80053; 81001; 85027; 85610; 85730; 87070; 93005

== ENCOUNTER 2022-12-10 08:17 | Observation (INO) | payer MEDICARE, OTHER ==
[2022-12-09 12:48] VITALS: BMI 29.9
[~2022-12-10 08:17] MED LIST changes: +ACETAMINOPHEN TAB 500 MG TAB PO PRN; -ALPRAZolam 0.25 MG TAB PO PRN; -ALPRAZolam 0.5 MG TAB PO PRN; -ASPIRIN 325 MG TAB PO STA; -ATORVASTATIN 80 MG TAB PO STA; +DEXAMETHASONE SOD PHOSPHATE 10 MG/ML 1 ML VIAL IV PRN; +DOCUSATE 100 MG CAP PO PRN; +FAMOTIDINE 20 MG/2 ML VIAL IVP PRN; -HEPARIN SODIUM,PORCINE 10,000 UNIT in SODIUM CHLORIDE 0.9% 1,000 ML IRRIGATION PRN; -HEPARIN SODIUM,PORCINE 2,500 UNIT in SODIUM CHLORIDE 0.9% 250 ML IRRIGATION PRN; +HYDROmorphone 0.5 MG/0.5 ML SYRINGE IVP PRN; +KETOROLAC 15 MG/ML 1 ML VIAL IVP PRN; +MIDAZOLAM 2 MG/2 ML VIAL IV PRN; -NITROGLYCERIN SL TABS 0.4 MG TAB SUBLINGUAL PRN; +ONDANSETRON 4 MG/2 ML VIAL IVP PRN; +ROPIVACAINE/EPI/CLONIDINE/KET 50 ML SYRINGE MISCELLANE PRN; -SODIUM CHLORIDE 0.9% 1,000 ML in EMPTY BAG 1 BAG IV SCH; +TRANEXAMIC 1,000 MG/100ML-NACL 1,000 MG in SALINE 1 100ML.BAG IV PRN; +TRANEXAMIC 1,000 MG/100ML-NACL 1,000 MG in SALINE 1 100ML.BAG IVPB PRN; +oxyCODONE ER 10 MG TAB.ER.12H PO PRN
[2022-12-10] MEDS: LACTATED RINGERS 1,000 ML IV SCH ×2 (08:33→16:18)
[2022-12-10 09:17] LABS: Glucose,Whole Blood 108 mg/dL (70-110)
[2022-12-10] MEDS ORDERED: fentaNYL (PF) 50 MCG/ML 2 ML AMP IVP ONE (09:19)
[2022-12-10] MEDS ORDERED: MIDAZOLAM 2 MG/2 ML VIAL IVP ONE (09:19)
--- NOTE | 2022-12-10 10:18 | P.ANPRN ---
Procedure Note - Anesthesia - Nerve Block Performed Right Adductor Canal Single Time Out Performed: Yes (0918) Date of Procedure: 12/10/22 Procedure Start Time: : Procedure Stop Time: Location of Patient: PreOp Indication: Acute Post-Operative Pain, Requested by Surgeon Specifically requested for management of pain by DrEron: Blaise Valiente Sedation Type: Sedate with meaningful contact maintained Preparation: Sterile Prep Position: Supine Catheter: None Needle Types: Pajunk Needle Gauge: 21 Ultrasound used to visualize needle placement: Yes Ultrasound used to observe medication spread: Yes Injectate: 0.5% Ropivacaine (see comment for volume) (15cc + 10cc nacl pf) Blood Aspirated: No Pain Paresthesia on Injection Noted: No Resistance on Injection: Normal Image Stored and Saved: Yes Events: Uneventful and Well Tolerated
--- NOTE | 2022-12-10 10:22 | P.ANPRN ---
Procedure Note - Anesthesia - Nerve Block Performed Right iPack Single Time Out Performed: Yes (0918) Date of Procedure: 12/10/22 Procedure Start Time: Procedure Stop Time: Location of Patient: PreOp Indication: Acute Post-Operative Pain, Requested by Surgeon Specifically requested for management of pain by DrEron: Blaise Valiente Sedation Type: Sedate with meaningful contact maintained Preparation: Sterile Prep Position: Supine Catheter: None Needle Types: Pajunk Needle Gauge: 21 Ultrasound used to visualize needle placement: Yes Ultrasound used to observe medication spread: Yes Injectate: 0.5% Ropivacaine (see comment for volume) (15cc +10cc nacl pf) Blood Aspirated: No Pain Paresthesia on Injection Noted: No Resistance on Injection: Normal Image Stored and Saved: Yes Events: Uneventful and Well Tolerated
[2022-12-10] MEDS ORDERED: ROCURONIUM 10 MG/ML (5 ML VIAL) IV ONE (11:17)
[2022-12-10] MEDS ORDERED: ROPIVACAINE 5 MG/ML 30 ML VIAL ONE (11:17)
[2022-12-10] MEDS ORDERED: SUCCINYLCHOLINE CHLORIDE 200 MG/10 ML VIAL IV ONE (11:17)
[2022-12-10] MEDS ORDERED: SODIUM CHLORIDE 0.9% (PF) 10 ML VIAL ONE (11:17)
[2022-12-10] MEDS ORDERED: fentaNYL (PF) 50 MCG/ML 2 ML AMP ONE (11:17)
[2022-12-10] MEDS ORDERED: LIDOCAINE 2% INJ 20 MG/ML (2 ML VIAL) ONE (11:17)
[2022-12-10] MEDS ORDERED: GLYCOPYRROLATE 0.2 MG/ML 2 ML VIAL ONE (11:17)
[2022-12-10] MEDS ORDERED: TRANEXAMIC 1,000 MG/100ML-NACL PREMIX BAG ONE (11:17)
[2022-12-10] MEDS ORDERED: PROPOFOL 10 MG/ML 20 ML VIAL IV ONE (11:17)
[2022-12-10] MEDS ORDERED: PHENYLEPHRINE-0.9% NACL SYG 1,000 MCG/10 ML SYRINGE ONE (11:17)
[2022-12-10] MEDS ORDERED: NEOSTIGMINE 1 MG/ML 10 ML VIAL ONE (11:17)
[2022-12-10] MEDS ORDERED: hydrOXYzine pamoate 25 MG CAP PO PRN (13:51)
[2022-12-10] MEDS ORDERED: HYDROmorphone 0.5 MG/0.5 ML SYRINGE IVP PRN ×2 (13:51)
[2022-12-10] MEDS ORDERED: NALOXONE 0.4 MG/ML 1 ML VIAL IV PRN (13:51)
--- NOTE | 2022-12-10 13:52 | P.OP ---
Date of Procedure: 12/10/22 Preoperative Diagnosis: 1. Severe right knee osteoarthritis 2. Rheumatoid arthritis on methotrexate 3. Type 2 diabetes, preoperative hemoglobin A1c level 7.1 4. Coronary artery disease 5. Atrial fibrillation on Eliquis 6. History of stroke 7. Chronic pain, takes [place] 7.5/325 at baseline Postoperative Diagnosis: Same Procedure(s) Performed: Right total knee arthroplasty Implants: 1. [place] [employer] CR Femur Size #4 2. [place] [employer] [place] Tibial Base Size #4 3. [employer] CS poly Size #4, 9-mm 4. [employer]lon all poly patella, Size #35 Anesthesia: JESSICAA, regional Surgeon: Blaise Valiente Design Leader #1: Lolly Choi Estimated Blood Loss (ml): 100 IV fluids (ml): 1,100 Pathology: none sent Condition: stable Disposition: PACU Indications for Procedure: I met with the patient preoperatively in the office setting and discussed treatment of their symptomatic knee arthritis. They failed a long course of nonsurgical treatment and elected to proceed with an elective total knee replacement. I discussed the potential risks and complications at length and gave them ample time to ask questions. Risks discussed included: risks from anesthesia, superficial site surgical infection, acute and/or chronic periprosthetic joint infection, delayed wound healing, drainage, wound necrosis, instability, stiffness, stiffness requiring manipulation and/or revision surgery, damage to local blood vessels or nerves, aseptic loosening of the implants, extensor mechanism issues including disruption, patellar maltracking, avascular necrosis etc., continued or worsened knee pain, generalized dissatisfaction with surgical outcome, need for revision surgery, an inability to regain preinjury level of function, DVT, PE, other medical complications, and possibly loss of life or limb. The patient voiced their understanding that while these are the most common complications other less common complications are possible. They provided both their verbal and written consent to go forward with surgery. Operative Findings: The patient had severe full-thickness cartilage loss in the medial, patellofemoral, and lateral compartments Description of Procedure: The patient was identified in preoperative holding and the correct operative extremity was verified and marked with a marker. I reviewed the consent form with the patient at length. All of their questions were answered. The patient was given a block by anesthesia. They were then brought back to the operating room. They were transferred onto the operating room table where a general anesthetic, preoperative antibiotics, and tranexamic acid were administered by anesthesia. A tourniquet was applied to the proximal aspect of the operative extremity. The contralateral extremity was padded under the heel and secured to the operating room table with a nonsterile blue towel and tape. The ipsilateral arm was carefully draped across the patient's chest and secured with a pillow and foam. A post was applied over the lateral aspect of the ipsilateral thigh and a bolster was placed under the ipsilateral foot. I verified that the operative extremity was stable and the knee was flexed to 90. The operative extremity was then placed in a leg manzano, nonsterile drapes were applied, and the extremity was prepped and draped sterilely in the standard sterile fashion. Prior to starting surgery timeout was performed identifying the correct patient, operative extremity, and procedure. The leg was then elevated, exsanguinated with an Esmarch bandage, and the tourniquet was inflated. An anterior midline incision was made sharply with a scalpel. Once I had dissected deep to the superficial fascial layer medial and lateral flaps were elevated. A medial parapatellar arthrotomy was created. Upon opening the knee joint there were diffuse arthritic changes in all 3 compartments. The anterior horn of the medial meniscus were sharply released and a medial release was performed around the posterior medial corner of the knee to facilitate retractor placement. The fat pad was excised with electrocautery. The patella was found to be severely arthritic and a provisional cut was made with a sagittal saw to facilitate mobilization of the extensor mechanism during the procedure. Remnants of the ACL and PCL were then excised from the notch. 4 mm pins were then placed within the incision in the medial distal femur and proximal tibia. Arrays were applied to the pins and I verified they were completely tightened. The knee was then registered with the Azimuth robot and manipulations in implant position were made to balance the knee and opitmize implant position. Using the Azimuth robotic saw all cuts were made in accordance with our plan. After all bony fragments had been removed the cuts were verified with the planar probe. The tibia was then subluxed forward and sized. The knee was brought into flexion and a lamina summer internship was placed to allow removal of the meniscal remnants both medially and laterally as well as posterior osteophytes. Local anesthetic was then infiltrated around the joint capsule. Trial implants were then placed within the knee. Range of motion and collateral ligament tension was then evaluated. Adjustments in implant size and position were then made accordingly. Once the knee was felt to be appropriately balanced the Leonid pins were removed. The patella was then recut, sized, and punched. A trial patellar button was then placed. With the trial components in place, the patella tracked midline. The femur was then drilled and the trial component removed. The trial tibial component was then appropriately rotated, pinned, and prepared for the keel. All trial components were then removed from the knee. The knee was thoroughly irrigated with pulsatile lavage. Cement was prepared via vacuum mixing in a bowl on the back table. I then hand pressurized cement into the femur and tibia and placed the implants beginning with the tibial base tray and poly liner, femoral component, and finally the patellar button. All extruded cement was removed including from the pin sites. Once the cement had hardened the knee was evaluated one final time with the final polyethylene liner in place. The knee had full extension and flexion and felt stable to varus and valgus stress throughout the arc of motion. The tourniquet was released and with the tourniquet down the patella tracked midline. All bleeders were controlled with electrocautery. The knee was then soaked for 3 minutes with a dilute Betadine s oak. The knee was thoroughly irrigated using 3 L of sterile saline and pulsatile lavage. A deep drain was placed. The extensor mechanism was then reapproximated using pop off Vicryl sutures followed by a running barbed suture. The knee was then closed in layers with a 0 strata fix for the deep fascial layer, 2-0 strata fix for the superficial subcutaneous layer and Monocryl and Steri-Strips for the skin. A sterile dressing and drain sponge were applied. I verified that all instrument, sponge, and sharp counts were correct. The patient was then transferred off the operating room table, extubated, and brought to recovery having tolerated the procedure well. Lolly Choi PA-C was required as a skilled senior office assistant due to the complexity of the procedure for patient positioning, draping, retraction, placement of hardware, and closure of wound. PLAN: The patient can weight-bear as tolerated on the operative extremity. DVT prophylaxis with aspirin 81 mg twice a day based on preoperative risk stratification. Follow-up in the office in 2 weeks for wound check and x-rays of the knee including an AP and lateral.
--- NOTE | 2022-12-10 14:18 | XR ---
EXAMINATION TYPE: XR knee limited RT DATE OF EXAM: 12/10/2022 2:10 PM CLINICAL INDICATION:Female, 72 years old with history of Evaluation for Postop abnormality and alignm ent; [facility] COMPARISON: 03/08/2022. TECHNIQUE: The Right knee(s) was examined in Frontal, lateral and oblique projections. FINDINGS: Status post total knee arthroplasty changes with hardware in appropriate alignment and in tact. No evidence of fracture. Subcutaneous lucencies and lucencies within the joint consistent with surgical changes. Catheter drainage tubing terminates over the joint space. IMPRESSION: Status post total knee arthroplasty changes with hardware intact and appropriate alignment. No fractu res identified.
[2022-12-10 14:42] LABS: Glucose,Whole Blood 108 mg/dL (70-110)
[2022-12-10] MEDS ORDERED: DEXTROSE 50% SYRINGE 50 ML IVP PRN ×2 (14:48)
[2022-12-10 17:16] LABS: Glucose,Whole Blood 124 mg/dL (70-110)
[2022-12-10] MEDS: INSULIN ASPART (NovoLOG) 100 UNIT/ML VIAL SQ SCH ×2 (18:22→20:56)
[2022-12-10] MEDS: HYDROcodone/APAP 10-325MG 1 EACH TAB PO PRN (18:44)
[2022-12-10 19:54] LABS: Glucose,Whole Blood 161 mg/dL (70-110)
[2022-12-10] MEDS: SENNOSIDES-DOCUSATE SODIUM 1 EACH TAB PO SCH (20:09)
[2022-12-10] MEDS: METOPROLOL TARTRATE 50 MG TAB PO SCH (20:57)
[2022-12-10] MEDS: metFORMIN 500 MG TAB PO SCH (20:57)
--- NOTE | 2022-12-10 23:37 | CONS ---
CONSULTATION REASON FOR CONSULTATION: Advice regarding atrial ablation and other medications requested by Orthopedics. HISTORY OF PRESENT ILLNESS: This is a 72-year-old woman with a past medical history of multiple medical problems including atrial fibrillation, CHF, underwent right total knee joint arthroplasty. Currently, the patient is slightly drowsy after surgery. There is no history of any fever, rigors, chills, chest pain, palpitation, or shortness of breath. PAST MEDICAL HISTORY: Reviewed include atrial ablation, CHF, rest of the history and rest of the chart is also reviewed. HOME MEDICATIONS: Reviewed include methotrexate, dose and rest of medications reviewed. ALLERGIES: None. FAMILY HISTORY: History of breast cancer. SOCIAL HISTORY: Previous history of smoking. REVIEW OF SYSTEMS: A 14-point review is negative except as mentioned earlier. PHYSICAL EXAMINATION: VITAL SIGNS: Pulse 73, blood pressure 140/94, respirations 16. CHEST: Clear to auscultation. CARDIOVASCULAR: S1, S2. ABDOMEN: Soft, nontender. LEGS: Status post right knee arthroplasty. NERVOUS SYSTEM: No focal deficits. LABORATORY DATA: Reviewed. ASSESSMENT: 1. Status post right total knee joint arthroplasty. 2. Atrial fibrillation. 3. History of CHF. 4. Diabetes mellitus, type 2. 5. Hypertension. 6. History of rheumatoid arthritis. RECOMMENDATIONS: This 72-year-old woman presented with multiple medical issues. At this time, I recommended to resume home medication. Monitor blood sugars closely. Continue with anticoagulation. Otherwise, closely follow with Orthopedic surgery. Resume the home medications once they are confirmed. Further recommendations to follow. MMODL / IJN: [id number] /
[2022-12-11] MEDS: LACTATED RINGERS 1,000 ML IV SCH ×4 (00:49→20:59)
[2022-12-11] MEDS: HYDROmorphone 0.5 MG/0.5 ML SYRINGE IVP PRN ×3 (01:28→23:38)
[2022-12-11 06:07] LABS: Glucose,Whole Blood 134 mg/dL (70-110)
[2022-12-11] MEDS: INSULIN ASPART (NovoLOG) 100 UNIT/ML VIAL SQ SCH ×4 (06:14→20:58)
--- NOTE | 2022-12-11 08:24 | P.PN ---
Subjective Progress Note Date: 12/11/22 The patient is resting comfortably in her bed. She has no complaints. She has some discomfort in a knee but is comfortable. She denies chest pain or shortness of breath. Objective - Vital Signs Vital signs: Vital Signs Temp 97.7 F 12/11/22 01:46 Pulse 69 12/11/22 01:46 Resp 16 12/11/22 01:46 BP 143/77 12/11/22 01:46 Pulse Ox 99 12/11/22 01:46 FiO2 Intake & Output 12/10/22 12/11/22 12/11/22 18:59 06:59 18:59 Intake Total 1080 Output Total 150 400 100 Balance 930 -400 -100 Weight 65.32 kg Intake: IV 600 Oral 480 Output: Drainage 200 100 Right Knee 200 100 Urine 200 Estimated Blood Loss 150 Other: # Voids 0 6 - Exam The patient is resting comfortably in her bed. A focused exam of the right lower extremity was conducted. On inspection there is a clean-appearing dressing over her right knee. Her Hemovac drain was removed. Her thigh and calf are soft. Femoral nerve function is intact. She is able to actively plantar flex and dorsiflex her ankle and her toes. - Labs Labs: Abnormal Lab Results - Last 24 Hours (Table) 12/10/22 12/10/22 12/11/22 Range/Units 17:14 19:48 06:03 POC Glucose (mg/dL) 124 H 161 H 134 H (70-110) mg/dL Assessment and Plan Assessment: Postoperative day #1 status post right total knee replacement, doing well Multiple medical problems Plan: 1. Weightbearing as tolerated right lower extremity, up with assistance and a walker 2. DVT prophylaxis with Eliquis 3. 2 doses postoperative antibiotics 4. Leave surgical dressing in place 5. PT 6. Disposition: Patient lives alone and has no support system. It is unsafe for the patient to discharge home. We'll plan for discharge to rehab or subacute nursing facility.
[2022-12-11 09:00] LABS: Anisocytosis Slight; Basophils % (A) 0 %; Eosinophils # (A) 0.1 k/uL (0-0.7); Eosinophils % (A) 1 %; HCT 33.5 % (34.0-46.0); HGB 10.3 gm/dL (11.4-16.0); Hypochromasia Marked; Lymphocytes # (A) 1.7 k/uL (1.0-4.8); Lymphocytes % (A) 12 %; MCH 27.3 pg (25.0-35.0); MCHC 30.7 g/dL (31.0-37.0); MCV 88.7 fL (80.0-100.0); Mean Platelet Volume 8.1; Monocytes # (A) 0.8 k/uL (0-1.0); Monocytes % (A) 6 %; Neutrophils # (A) 11.2 k/uL (1.3-7.7); Neutrophils % (A) 81 %; Platelet Count 290 k/uL (150-450); RBC 3.77 m/uL (3.80-5.40); RDW 16.9 % (11.5-15.5); WBC 13.9 k/uL (3.8-10.6)
[2022-12-11] MEDS: metFORMIN 500 MG TAB PO SCH ×2 (09:43→20:58)
[2022-12-11] MEDS: HYDROcodone/APAP 10-325MG 1 EACH TAB PO PRN ×3 (09:43→20:57)
[2022-12-11] MEDS: METOPROLOL TARTRATE 50 MG TAB PO SCH ×2 (09:43→20:58)
[2022-12-11] MEDS: FAMOTIDINE 20 MG TAB PO SCH (09:43)
[2022-12-11] MEDS: APIXABAN 5 MG TAB PO SCH ×2 (09:44→20:58)
[2022-12-11] MEDS: FOLIC ACID 1 MG TAB PO SCH (09:44)
[2022-12-11 10:56] LABS: Glucose,Whole Blood 141 mg/dL (70-110)
--- NOTE | 2022-12-11 12:27 | PN ---
PROGRESS NOTE DATE OF SERVICE: 12/11/2022 SUBJECTIVE: This is a 72-year-old woman, who was admitted after right total knee joint arthroplasty. She is improving significantly. No chest pain or palpitations. OBJECTIVE: VITAL SIGNS: Pulse 69, blood pressure , respirations 16. CHEST: Clear to auscultation. CARDIOVASCULAR: S1, S2 muffled. ABDOMEN: Soft. NERVOUS SYSTEM: Nonfocal. LABORATORY DATA: Reviewed. ASSESSMENT: 1. Status post right total knee arthroplasty. 2. Atrial fibrillation. 3. History of congestive heart failure. 4. Diabetes mellitus, type 2. 5. Hypertension. 6. History of multiple medications. RECOMMENDATIONS: Recommend to continue current otherwise recommend to repeat labs in the morning and continue the current medication. Monitor fluid balance closely. Closely follow with Orthopedic surgery. Further recommendations to follow. MMODL / IJN: [id number] / MTDD
[2022-12-11 16:50] LABS: Glucose,Whole Blood 118 mg/dL (70-110)
[2022-12-11 19:17] LABS: Glucose,Whole Blood 128 mg/dL (70-110)
[2022-12-11] MEDS: SENNOSIDES-DOCUSATE SODIUM 1 EACH TAB PO SCH (20:58)
[2022-12-12 05:28] LABS: Glucose,Whole Blood 101 mg/dL (70-110)
[2022-12-12] MEDS: LACTATED RINGERS 1,000 ML IV SCH ×2 (07:41)
[2022-12-12] MEDS: INSULIN ASPART (NovoLOG) 100 UNIT/ML VIAL SQ SCH ×4 (07:43→22:59)
[2022-12-12] MEDS ORDERED: ONDANSETRON 4 MG/2 ML VIAL IVP PRN (08:11)
[2022-12-12 08:18] LABS: Anisocytosis Slight; Basophils % (A) 0 %; Eosinophils # (A) 0.5 k/uL (0-0.7); Eosinophils % (A) 4 %; HCT 34.7 % (34.0-46.0); HGB 10.9 gm/dL (11.4-16.0); Hypochromasia Moderate; Lymphocytes # (A) 1.9 k/uL (1.0-4.8); Lymphocytes % (A) 14 %; MCH 27.5 pg (25.0-35.0); MCHC 31.5 g/dL (31.0-37.0); MCV 87.5 fL (80.0-100.0); Mean Platelet Volume 7.1; Monocytes # (A) 0.6 k/uL (0-1.0); Monocytes % (A) 5 %; Neutrophils # (A) 10.2 k/uL (1.3-7.7); Neutrophils % (A) 76 %; Platelet Count 325 k/uL (150-450); RBC 3.96 m/uL (3.80-5.40); RDW 17.1 % (11.5-15.5); WBC 13.3 k/uL (3.8-10.6)
[2022-12-12 08:19] LABS: African American GFR (CKD) >90 (>60 ml/min/1.73 sqM); Anion Gap 6 mmol/L; Blood Urea Nitrogen 21 mg/dL (7-17); Calcium 9.9 mg/dL (8.4-10.2); Carbon Dioxide 25 mmol/L (22-30); Chloride 109 mmol/L (98-107); Glucose 123 mg/dL (74-99); Non-African American GFR(CKD) 78 (>60 ml/min/1.73 sqM); Potassium 4.2 mmol/L (3.5-5.1); Sodium 140 mmol/L (137-145)
[2022-12-12] MEDS: metFORMIN 500 MG TAB PO SCH ×2 (08:38→22:08)
[2022-12-12] MEDS: APIXABAN 5 MG TAB PO SCH ×2 (08:38→22:08)
[2022-12-12] MEDS: FAMOTIDINE 20 MG TAB PO SCH (08:38)
[2022-12-12] MEDS: FOLIC ACID 1 MG TAB PO SCH (08:38)
[2022-12-12] MEDS: METOPROLOL TARTRATE 50 MG TAB PO SCH ×2 (08:38→22:09)
[2022-12-12] MEDS: HYDROcodone/APAP 10-325MG 1 EACH TAB PO PRN ×3 (08:38→22:08)
--- NOTE | 2022-12-12 11:10 | P.PN ---
Progress Note - Text Progress Note Date: 12/12/22 Orthopedics: History of present illness: Patient is a very pleasant 72-year-old female who is seen and examined at bedside for follow-up evaluation of her right knee. She is status post right total knee arthroplasty performed on 12/10/2022. She states in regards to her right knee she has been doing fairly well. She has some right knee pain but states it has been adequately controlled. She has been able to ambulate to the restroom the assistance of a walker. Previous drain in her right knee has been discontinued without difficulty. States this morning she has had some difficulty with urination. Nursing states this has been discussed with medicine. They're planning to obtain a UA at the bedside. Patient states she has been unable to urinate over the past 2 days but nursing states this is an accurate and the patient has been urinating postoperatively. We did discuss obtaining bladder scan for further evaluation. Nursing will discuss this further with medicine. Patient denies any other complaints at the bedside. Patient denies fever or chills. Patient is planned for discharge to a rehabilitation facility at the time of discharge. Patient is being seen by medicine for her other medical diagnoses including atrial fibrillation, congestive heart failure, type 2 diabetes mellitus, and hypertension. Physical Exam Total Knee Arthroplasty: Status post surgical day number 2 Patient is awake, alert, and oriented 3 Vital signs stable Good chest excursion with deep inspiration and expiration No signs or symptoms of DVT; no calf pain Dressing over the right knee is clean, dry, and intact; no erythema, purulence, or signs of infection Patient has full foot and ankle motion without difficulty at the right lower extremity Dorsiflexion, plantar flexion, and extensor hallucis longus positive sustained bilaterally Neurovascular status left lower extremity intact No significant pain with palpation around the surgical site at the right knee Assessment: Status post right total knee arthroplasty Right knee pain Reported difficulty with urination Atrial fibrillation Congestive heart failure Type 2 diabetes Hypertension Plan: 1. Patient to remain weight-bear as tolerated on the lower extremity with the assistance of a walker; patient may work with physical therapy to increase mobility and ambulation 2. Continue pain control oral hydrocodone and IV Dilaudid as prescribed as needed for pain control; would wean the patient off of IV narcotic medication in anticipation for discharge to a rehabilitation facility as early as tomorrow, 12/13/2022 3. Medicine to continue following the patient for his other medical diagnoses including atrial fibrillation, congestive heart failure, type 2 diabetes, and hypertension. Medicine will also address possible difficulty with urination. Currently planning to obtain urinalysis. We will also discuss obtaining a bladder scan. This may be managed by medicine. 4. Patient to continue with anticoagulation with Eliquis 5. We'll continue to follow the patient; patient is currently pending for discharge to rehabilitation facility once approved and medically stable. If she is medically stable and approved, we'll plan for discharge as early as tomorrow, 12/13/2022. 6. Patient can follow-up with Dr. Valiente at [facility] in 2 weeks following discharge
[2022-12-12 11:12] LABS: Glucose,Whole Blood 123 mg/dL (70-110)
[2022-12-12 16:33] LABS: Glucose,Whole Blood 136 mg/dL (70-110)
[2022-12-12 20:04] LABS: Glucose,Whole Blood 143 mg/dL (70-110)
[2022-12-12] MEDS: SENNOSIDES-DOCUSATE SODIUM 1 EACH TAB PO SCH (22:08)
--- NOTE | 2022-12-13 04:19 | PN ---
PROGRESS NOTE DATE OF SERVICE: 12/12/2022 SUBJECTIVE: This is a 72-year-old woman, who was admitted after right total knee arthroplasty, improving significantly. No chest pain. No palpitations. No fever. OBJECTIVE: VITAL SIGNS: Pulse is 97, blood pressure 183/91, respirations 18. CHEST: Clear to auscultation. CARDIOVASCULAR: S1, S2. ABDOMEN: Soft. LEGS: Status post surgery. LABORATORY DATA: Reviewed. ASSESSMENT: 1. Status post right total knee arthroplasty. 2. Atrial fibrillation. 3. History of congestive heart failure. 4. Diabetes mellitus, type 2. 5. Hypertension. 6. Multiple medical issues. RECOMMENDATIONS: Recommend to continue current medications. Continue symptomatic treatment. Otherwise, stop the IV fluids. Repeat labs in the morning. Further recommendations to follow. MMODL / IJN: [id number] /
[2022-12-13 06:06] LABS: Glucose,Whole Blood 125 mg/dL (70-110)
[2022-12-13] MEDS: INSULIN ASPART (NovoLOG) 100 UNIT/ML VIAL SQ SCH ×4 (08:31→20:38)
[2022-12-13 08:38] LABS: Basophils # (A) 0.08 X 10*3/uL (0.00-0.10); Basophils % (A) 0.6 %; Eosinophils # (A) 0.42 X 10*3/uL (0.04-0.35); Eosinophils % (A) 3.3 %; HCT 34.3 % (37.2-46.3); HGB 10.3 d/dL (12.0-15.0); Lymphocytes # (A) 2.16 X 10*3/uL (0.90-5.00); Lymphocytes % (A) 16.7 %; MCH 26.6 pg (27.0-32.0); MCV 88.6 FL (80.0-97.0); Mean Platelet Volume 9.3 FL (9.5-12.2); Monocytes # (A) 0.99 X 10*3/uL (0.20-1.00); Monocytes % (A) 7.7 %; NRBC Per 100 WBC 0 X 10*3/uL (0.00-0.01); Neutrophils # (A) 9.21 X 10*3/uL (1.80-7.70); Neutrophils % (A) 71.2 %; Platelet Count 361 X 10*3/uL (140-440); RBC 3.87 X 10*6/uL (4.10-5.20); RDW 16.6 % (11.5-14.5); WBC 12.92 X 10*3/uL (4.50-10.00)
[2022-12-13] MEDS: FAMOTIDINE 20 MG TAB PO SCH (08:42)
[2022-12-13] MEDS: METOPROLOL TARTRATE 50 MG TAB PO SCH ×2 (08:42→20:52)
[2022-12-13] MEDS: FOLIC ACID 1 MG TAB PO SCH (08:42)
[2022-12-13] MEDS: metFORMIN 500 MG TAB PO SCH ×2 (08:42→20:52)
[2022-12-13] MEDS: APIXABAN 5 MG TAB PO SCH ×2 (08:42→20:52)
[2022-12-13] MEDS: HYDROmorphone 0.5 MG/0.5 ML SYRINGE IVP PRN ×2 (08:43→20:50)
--- NOTE | 2022-12-13 08:45 | P.PN ---
Subjective Progress Note Date: 12/13/22 This patient is a 72-year-old female who is status post right total knee arthroplasty on 12/10/22. Today is post-operative day #3. The patient is examined bedside by Dr. Valiente. She states the pain in her right knee is manageable at this time. She continues to experience difficulty with voiding, and she also complains of mild abdominal pain. No additional complaints in regards to her knee at this time. Patient is planning to discharge to rehab. Objective - Vital Signs Vital signs: Vital Signs Temp 98.4 F 12/13/22 07:00 Pulse 76 12/13/22 07:00 Resp 16 12/13/22 07:00 BP 151/86 12/13/22 07:00 Pulse Ox 95 12/13/22 07:00 FiO2 Intake & Output 12/12/22 12/13/22 12/13/22 18:59 06:59 18:59 Other: Voiding Method Toilet # Voids 4 1 # Bowel Movements 1 - Exam On examination, patient is sitting up at the bedside in no apparent distress. She is alert and oriented 3. On inspection of her right knee, there is a clean, dry, intact surgical dressing in place with no bleeding or drainage to the dressing. Mild swelling. Motor and sensory function is intact of the right lower extremity. Right lower extremity is warm and well perfused. Calf is soft and nontender to palpation. - Labs CBC & Chem 7: 12/13/22 05:37 12/12/22 07:29 Labs: Abnormal Lab Results - Last 24 Hours (Table) 12/12/22 12/12/22 12/12/22 Range/Units 11:11 16:32 20:02 WBC (4.50-10.00) X 10*3/uL RBC (4.10-5.20) X 10*6/uL Hgb (12.0-15.0) d/dL Hct (37.2-46.3) % MCH (27.0-32.0) pg MCHC (32.0-37.0) d/dL RDW (11.5-14.5) % MPV (9.5-12.2) FL Neutrophils # (1.80-7.70) X 10*3/uL Eosinophils # (0.04-0.35) X 10*3/uL POC Glucose (mg/dL) 123 H 136 H 143 H (70-110) mg/dL 12/13/22 12/13/22 Range/Units 05:37 06:04 WBC 12.92 H (4.50-10.00) X 10*3/uL RBC 3.87 L (4.10-5.20) X 10*6/uL Hgb 10.3 L (12.0-15.0) d/dL Hct 34.3 L (37.2-46.3) % MCH 26.6 L (27.0-32.0) pg MCHC 30.0 L (32.0-37.0) d/dL RDW 16.6 H (11.5-14.5) % MPV 9.3 L (9.5-12.2) FL Neutrophils # 9.21 H (1.80-7.70) X 10*3/uL Eosinophils # 0.42 H (0.04-0.35) X 10*3/uL POC Glucose (mg/dL) 125 H (70-110) mg/dL Assessment and Plan Assessment: Status-post right total knee arthroplasty on 12/10/22. Postoperative day #3. Plan: - Weight-bear to tolerance on operative extremity with walker. Up with assistance. Fall precautions. - Physical therapy for gait and balance training. - Keep operative dressing in place. Do not remove. She may shower over dressing. - Pain medications as needed. Eliquis has been resumed for DVT prophylaxis. - Internal medicine tenisha-operative medical management. - Anticipate discharge to rehab when medically cleared and auth is obtained.
[2022-12-13 08:57] LABS: BUN/Creat Ratio 17.75 Ratio (12.00-20.00); Blood Urea Nitrogen 14.2 mg/dL (9.0-27.0); Calcium 9.8 mg/dL (8.7-10.3); Chloride 104 mmol/L (96-109); Glucose 110 mg/dL (70-110); Potassium 3.8 mmol/L (3.5-5.5); Sodium 142 mmol/L (135-145)
[2022-12-13 11:37] LABS: Glucose,Whole Blood 130 mg/dL (70-110)
[2022-12-13 16:52] LABS: Glucose,Whole Blood 111 mg/dL (70-110)
[2022-12-13 20:31] LABS: Glucose,Whole Blood 125 mg/dL (70-110)
[2022-12-13] MEDS: SENNOSIDES-DOCUSATE SODIUM 1 EACH TAB PO SCH ×2 (20:52→20:56)
[2022-12-14 06:02] LABS: Glucose,Whole Blood 111 mg/dL (70-110)
[2022-12-14] MEDS: INSULIN ASPART (NovoLOG) 100 UNIT/ML VIAL SQ SCH ×2 (06:28→12:21)
[2022-12-14] MEDS: metFORMIN 500 MG TAB PO SCH (07:59)
[2022-12-14] MEDS: FOLIC ACID 1 MG TAB PO SCH (07:59)
[2022-12-14] MEDS: METOPROLOL TARTRATE 50 MG TAB PO SCH (07:59)
[2022-12-14] MEDS: APIXABAN 5 MG TAB PO SCH (07:59)
[2022-12-14] MEDS: FAMOTIDINE 20 MG TAB PO SCH (07:59)
[2022-12-14] MEDS: HYDROmorphone 0.5 MG/0.5 ML SYRINGE IVP PRN (08:06)
[2022-12-14] MEDS: HYDROcodone/APAP 10-325MG 1 EACH TAB PO PRN (11:24)
[2022-12-14 11:52] LABS: Basophils # (A) 0.06 X 10*3/uL (0.00-0.10); Basophils % (A) 0.6 %; Eosinophils # (A) 0.42 X 10*3/uL (0.04-0.35); Eosinophils % (A) 4.1 %; HCT 32.6 % (37.2-46.3); HGB 10.4 d/dL (12.0-15.0); Lymphocytes # (A) 1.58 X 10*3/uL (0.90-5.00); Lymphocytes % (A) 15.5 %; MCH 27.4 pg (27.0-32.0); MCHC 31.9 d/dL (32.0-37.0); MCV 85.8 FL (80.0-97.0); Mean Platelet Volume 9.3 FL (9.5-12.2); Monocytes # (A) 0.88 X 10*3/uL (0.20-1.00); Monocytes % (A) 8.6 %; NRBC Per 100 WBC 0 X 10*3/uL (0.00-0.01); Neutrophils # (A) 7.21 X 10*3/uL (1.80-7.70); Neutrophils % (A) 70.5 %; Platelet Count 315 X 10*3/uL (140-440); RDW 16.6 % (11.5-14.5); WBC 10.22 X 10*3/uL (4.50-10.00)
[2022-12-14 12:00] LABS: Glucose,Whole Blood 132 mg/dL (70-110)
[2022-12-14 13:28] LABS: BUN/Creat Ratio 13.75 Ratio (12.00-20.00); Calcium 9.5 mg/dL (8.7-10.3); Carbon Dioxide 26.2 mmol/L (21.6-31.8); Chloride 105 mmol/L (96-109); Glucose 113 mg/dL (70-110); Potassium 3.6 mmol/L (3.5-5.5); Sodium 142 mmol/L (135-145)
--- NOTE | 2022-12-14 14:33 | P.PN ---
Subjective Progress Note Date: 12/13/22 Patient is a 72-year-old female was admitted to the hospital after right total knee arthroplasty. 12/13/2022 Patient is awake alert and oriented 3. On room air. Patient is on bedside commode and is having a bowel movement. No complaints of abdominal pain. No nausea vomiting or diarrhea. No cough or sputum production. No fever no chest pain no acute overnight issues. Pain is fairly controlled. PT OT is on board Laboratory data WBC 12.9 hemoglobin 10.3 and platelets 361. BUN 11.0 and creatinine 0.8. Current medications reviewed. Objective - Vital Signs Vital signs: Vital Signs Temp 98.4 F 12/13/22 07:00 Pulse 93 12/13/22 07:40 Resp 16 12/13/22 07:40 BP 151/86 12/13/22 07:00 Pulse Ox 95 12/13/22 07:00 FiO2 Intake & Output 12/12/22 12/13/22 12/13/22 18:59 06:59 18:59 Other: Voiding Method Toilet Toilet # Voids 4 1 # Bowel Movements 1 - Exam PHYSICAL EXAMINATION: Patient is lying in the bed comfortably, no acute distress, awake alert and oriented.. HEENT: Normocephalic. Neck is supple. Pupils reactive. Nostrils clear. Oral cavity is moist. Neck reveals no JVD, carotid bruits, or thyromegaly. CHEST EXAMINATION: Trachea is central. Symmetrical expansion. Lung nielson clear to auscultation and percussion. CARDIAC: Normal S1, S2 with no gallops. No murmurs ABDOMEN: Soft. Bowel sounds normal. No organomegaly. No abdominal bruits. Extremities: Minimal right lower extremity swelling. Surgical site bandaged. No calf tenderness... No clubbing or cyanosis Neurologically awake, alert, oriented x3 with well-coordinated movements. No focal deficits noted Skin: No rash or skin lesions. Psychiatric: Coperative. Nonsuicidal Musculoskeletal: No joint swelling or deformity. - Labs CBC & Chem 7: 12/14/22 07:02 12/13/22 05:37 Labs: Abnormal Lab Results - Last 24 Hours (Table) 12/12/22 12/12/22 12/13/22 Range/Units 16:32 20:02 05:37 WBC 12.92 H (4.50-10.00) X 10*3/uL RBC 3.87 L (4.10-5.20) X 10*6/uL Hgb 10.3 L (12.0-15.0) d/dL Hct 34.3 L (37.2-46.3) % MCH 26.6 L (27.0-32.0) pg MCHC 30.0 L (32.0-37.0) d/dL RDW 16.6 H (11.5-14.5) % MPV 9.3 L (9.5-12.2) FL Neutrophils # 9.21 H (1.80-7.70) X 10*3/uL Eosinophils # 0.42 H (0.04-0.35) X 10*3/uL POC Glucose (mg/dL) 136 H 143 H (70-110) mg/dL 12/13/22 12/13/22 Range/Units 06:04 11:32 WBC (4.50-10.00) X 10*3/uL RBC (4.10-5.20) X 10*6/uL Hgb (12.0-15.0) d/dL Hct (37.2-46.3) % MCH (27.0-32.0) pg MCHC (32.0-37.0) d/dL RDW (11.5-14.5) % MPV (9.5-12.2) FL Neutrophils # (1.80-7.70) X 10*3/uL Eosinophils # (0.04-0.35) X 10*3/uL POC Glucose (mg/dL) 125 H 130 H (70-110) mg/dL Assessment and Plan Assessment: Status post right total knee arthroplasty. On 12/10/2022 Paroxysmal atrial fibrillation on anticoagulation with eliquis Chronic CHF with diastolic dysfunction Rheumatoid arthritis on methotrexate History of coronary disease Diabetes type 2 [id number] Hypertension Severe osteoarthritis DVT prophylaxis. Plan: Patient will be continued on pain management, bowel regimen and encourage incentive spirometry. Continue with PT OT and pain management. Continue with home medications and follow closely. Follow-up CBC and BMP tomorrow. Anticipate discharge in next 24 hours with more clinical improvement.
--- NOTE | 2022-12-14 15:11 | P.DS ---
Providers Date of admission: 12/10/22 13:34 Expected date of discharge: 12/14/22 Attending physician: Blaise Valiente Consults: 12/10/22 13:51 Consult Physician Routine Consulting Provider: Vinod Andres Consult Reason/Comments: medical management Do you want consulting provider notified?: Yes Primary care physician: [facility] Course: This is a 72-year-old female who has been followed in our office by Dr. Valiente for continued complaints of right knee pain due to right knee osteoarthritis. Treatment options were discussed, and patient elected to undergo a right total knee arthroplasty. Patient was seen pre-operatively by Dr. Mitchell, Dr. Fatima and cleared for surgery. Patient underwent a right total knee arthroplasty on 12/10/[address] Valiente. The procedure was performed without complication or sequelae. The patient is doing fairly well postoperatively. Vital signs and labs are stable on postoperative day #4. Patient was examined bedside this morning with Dr. Valiente. Patient states she feels her knee pain has improved. She has been working with physical therapy and subacute rehab has been recommended. Patient has no new complaints this morning. She has been cleared by internal medicine for discharge today. On examination, the patient is sitting up in bed in no apparent distress. She is alert and orientated 3. On inspection of the right knee, there is a clean, dry, intact surgical dressing in place with no bleeding or drainage through the dressing. Patient has good strength and ROM of the right ankle and toes. Motor and sensory function is intact of the right lower extremity. The dorsalis pedis pulse is easily palpable, the right lower extremity is warm and well perfused with brisk capillary refill. Calf is soft and non-tender to palpation. Patient is discharged to subacute rehab today in good condition. She has been cleared by internal medicine. Patient will follow-up in the office at [facility] in 2 weeks. Please see med rec for accurate list of discharge medication. Plan - Discharge Summary Discharge Rx Participant: Yes New Discharge Prescriptions: New Docusate [Colace] 100 mg PO BID #60 capsule Omeprazole 40 mg PO DAILY 30 Days #30 cap HYDROcodone/APAP 10-325MG [Hannah 10-325] 1 tab PO Q6HR PRN 7 Days #32 tab PRN Reason: Pain Continue Apixaban [Eliquis] 5 mg PO BID #0 tab Folic Acid 1 mg PO DAILY metHOTREXate sodium [Methotrexate] 25 mg PO MO metFORMIN HCL [Glucophage] 500 mg PO BID Metoprolol Tartrate [Lopressor] 50 mg PO BID #60 tab Discontinued HYDROcodone/APAP 7.5-325MG [Hannah 7.5-325] 1 tab PO BID PRN PRN Reason: Pain Famotidine 20 mg PO BID Discharge Medication List Apixaban [Eliquis] 5 mg PO BID #0 tab 06/27/19 [Rx] Folic Acid 1 mg PO DAILY 09/07/22 [History] Metoprolol Tartrate [Lopressor] 50 mg PO BID #60 tab 10/16/22 [Rx] metHOTREXate sodium [Methotrexate] 25 mg PO MO 10/16/22 [History] metFORMIN HCL [Glucophage] 500 mg PO BID 12/09/22 [History] Docusate [Colace] 100 mg PO BID #60 capsule 12/10/22 [Rx] HYDROcodone/APAP 10-325MG [Hannah 10-325] 1 tab PO Q6HR PRN 7 Days #32 tab 12/10/22 [Rx] Omeprazole 40 mg PO DAILY 30 Days #30 cap 12/10/22 [Rx] Follow up Appointment(s)/Referral(s): Blaise Valiente MD [Medical Doctor] - 2 Weeks Activity/Diet/Wound Care/Special Instructions: Weight bear to tolerance on operative extremity with a walker. Keep operative dressing in place until follow-up in the office. Call the office if dressing becomes saturated or falls off. May shower over dressing. Take pain medications as needed. Resume Eliquis for blood clot prevention. Additional pain medication per Dr. Durán. Follow-up in the office in two weeks at [facility]. Call the office with any questions or concerns, Discharge Disposition: HOME WITH HOME HEALTH SERVICES
[2022-12-14 15:34] VITALS: BP 115/70; PULSE 99; RESP 18; TEMP 98.1
== END 2022-12-14 15:55 | disposition home health service (06) ==
LOC: OR 08:17 → 4SSUR 13:33 → OR 13:34 → 4SSUR 12-12 13:34
PROVIDERS: ADMIT Orthopaedic Surgery; ATTEND Orthopaedic Surgery
DX: M17.11 Unilateral primary osteoarthritis, right knee (principal); M25.761 Osteophyte, right knee; G89.18 Other acute postprocedural pain; M06.9 Rheumatoid arthritis, unspecified; E11.9 Type 2 diabetes mellitus without complications; I25.10 Atherosclerotic heart disease of native coronary artery without angina pectoris; I48.0 Paroxysmal atrial fibrillation; G89.29 Other chronic pain; I11.0 Hypertensive heart disease with heart failure; I50.32 Chronic diastolic (congestive) heart failure; Z86.73 Personal history of transient ischemic attack (TIA), and cerebral infarction without residual deficits; Z87.891 Personal history of nicotine dependence; Z79.01 Long term (current) use of anticoagulants; Z79.631 Long term (current) use of antimetabolite agent
CPT/HCPCS: 97530 ×2; 97163; 97535; 97167; 64447; 64999; 80048 ×3; 85025 ×4; 83036; 73560; 27447; G0378 ×5; C1776; C1713; J2250; J1100; J0690 ×2; J2405 ×2; J3010; J3490; J1885; J1170 ×3

== ENCOUNTER 2023-02-14 07:37 | Observation (INO) | payer MEDICARE, OTHER ==
[2023-02-14] MEDS ORDERED: NITROGLYCERIN OINT 1 INCH/GM PACKET TOPICAL STA (07:56)
--- NOTE | 2023-02-14 08:11 | ED ---
General Adult HPI - General Chief complaint: Chest Pain Stated complaint: chest pains Time Seen by Provider: 02/14/23 07:40 Source: patient, EMS, RN notes reviewed, old records reviewed Mode of arrival: EMS Limitations: no limitations - History of Present Illness Initial comments: This is a 73-year-old female presents emergency department from a [facility]. Patient was sent in because she was complaining of chest pain and shortness of breath. Patient states she has a history of coronary artery disease atrial fibrillation and CHF. Patient states it started about 5 AM this morning in the chest pain continues now. Patient states she was given nitroglycerin in the ambulance and that helped. Patient was also given aspirin and an ambulance. Jori laureanont denies any fever chills or cough. Patient denies headache patient denies numbness weakness. Patient denies any lightheadedness or dizziness. Patient denies any abdominal pain patient denies any recent fever chills or cough. - Related Data Home Medications Medication Instructions Recorded Confirmed Folic Acid 1 mg PO DAILY@1200 09/07/22 02/14/23 metHOTREXate sodium 20 mg PO MO 10/16/22 02/14/23 Apixaban [Eliquis] 5 mg PO BID@0800,1700 02/14/23 02/14/23 Cholecalciferol [Vitamin D3 (25 25 mcg PO DAILY 02/14/23 02/14/23 Mcg = 1000 Iu)] Docusate [Colace] 100 mg PO BID@0800,1700 02/14/23 02/14/23 Empagliflozin [Jardiance] 10 mg PO DAILY@0600 02/14/23 02/14/23 Escitalopram Oxalate [Lexapro] 10 mg PO DAILY 02/14/23 02/14/23 Ferrous Sulfate [Feosol] 325 mg PO DAILY 02/14/23 02/14/23 Furosemide [Lasix] 20 mg PO DAILY 02/14/23 02/14/23 INSULIN LISPRO (HumaLOG) [humaLOG] See Protocol SQ ACHS 02/14/23 02/14/23 Isosorbide Mononitrate ER [Imdur] 30 mg PO DAILY 02/14/23 02/14/23 Lactulose 10 gm PO BID@0800,1700 02/14/23 02/14/23 Metoprolol Tartrate [Lopressor] 50 mg PO BID@0800,1700 02/14/23 02/14/23 Na Phos,M-B/Na Phos,Di-Ba [Fleet 133 ml RECTAL DAILY PRN 02/14/23 02/14/23 Adult] Nitroglycerin Sl Tabs [Nitrostat] 0.4 mg PO Q5M PRN 02/14/23 02/14/23 Semaglutide [Ozempic] 1 mg SQ WE 02/14/23 02/14/23 Sennosides-Docusate Sodium 1 tab PO HS 02/14/23 02/14/23 [Senokot-S] Spironolactone 25 mg PO DAILY 02/14/23 02/14/23 azaTHIOprine [Imuran] 50 mg PO TID@0600,1400,2200 02/14/23 02/14/23 bisacodyL [Dulcolax] 10 mg RECTAL DAILY PRN 02/14/23 02/14/23 hydrALAZINE HCL [Apresoline] 50 mg PO BID 02/14/23 02/14/23 oxyCODONE ER [OxyCONTIN] 10 mg PO BID 02/14/23 02/14/23 polyethylene glycoL 3350 [Miralax] 17 gm PO DAILY PRN 02/14/23 02/14/23 traZODone HCL [Desyrel] 50 mg PO HS 02/14/23 02/14/23 Previous Rx's Medication Instructions Recorded HYDROcodone/APAP 10-325MG [[place] 1 tab PO Q6HR PRN 7 Days #32 tab 12/10/22 10-325] Omeprazole 40 mg PO DAILY 30 Days #30 cap 12/10/22 Allergies Allergy/AdvReac Type Severity Reaction Status Date / Time No Known Allergies Allergy Verified 02/14/23 08:17 Review of Systems ROS Statement: Those systems with pertinent positive or pertinent negative responses have been documented in the HPI. ROS Other: All systems not noted in ROS Statement are negative. 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 Spinal stenosis. Poss thyroid issue. Varicose veins,. CHF History of Any Multi-Drug Resistant Organisms: None Reported Past Surgical History: Cholecystectomy, Heart Catheterization, Hernia Repair, Orthopedic Surgery Additional Past Surgical History / Comment(s): removed bone in left foot, Umbilical hernia, CARDIOVERSION, total right knee replacement Past Anesthesia/Blood Transfusion Reactions: No Reported Reaction Past Psychological History: Anxiety, Depression Smoking Status: Former smoker Past Alcohol Use History: None Reported Past Drug Use History: None Reported - Past Family History Father History Unknown: Yes Sister(s) Family Medical History: Cancer Additional Family Medical History / Comment(s): breast cancer Mother Family Medical History: Deep Vein Thrombosis (DVT) General Exam - General Exam Comments Initial Comments: GENERAL: Patient is well-developed and well-nourished. Patient is nontoxic and well- hydrated and is in mild distress. ENT: Neck is soft and supple. No significant lymphadenopathy is noted. Oropharynx is clear. Moist mucous membranes. Neck has full range of motion without eliciting any pain. EYES: The sclera were anicteric and conjunctiva were pink and moist. Extraocular movements were intact and pupils were equal round and reactive to light. Eyelids were unremarkable. PULMONARY: Unlabored respirations. Good breath sounds bilaterally. No audible rales rhonchi or wheezing was noted. CARDIOVASCULAR: There is a regular rate and rhythm without any murmurs gallops or rubs. ABDOMEN: Soft and nontender with normal bowel sounds. SKIN: Skin is clear with no lesions or rashes and otherwise unremarkable. NEUROLOGIC: Patient is alert and oriented x3. Cranial nerves II through XII are grossly intact. Motor and sensory are also intact. Normal speech, volume and content. Symmetrical smile. MUSCULOSKELETAL: Normal extremities with adequate strength and full range of motion. No lower extremity swelling or edema. No calf tenderness. LYMPHATICS: No significant lymphadenopathy is noted PSYCHIATRIC: Normal psychiatric evaluation. Limitations: no limitations Course Vital Signs 02/14/23 07:40 Temperature 97.5 F L Pulse Rate 74 Respiratory 18 Rate Blood Pressure 116/75 O2 Sat by Pulse 98 Oximetry Medical Decision Making - Medical Decision Making EKG as interpreted by myself. EKG shows atrial fibrillation at 67 bpm QRS is 160 QT interval is 390 QTC is 405 per patient's EKG shows no ST segment elevation or depression. Was pt. sent in by a medical professional or institution (, PA, CLERICAL SUPPORT, urgent care, hospital, or fci...) When possible be specific @ -care home sent the patient and Did you speak to anyone other than the patient for history (EMS, parent, family, police, friend...)? What history was obtained from this source @ -[No] Did you review nursing and triage notes (agree or disagree)? Why? @ -[I reviewed and agree with nursing and triage notes] Were old charts reviewed (outside hosp., previous admission, EMS record, old EKG, old radiological studies, urgent care reports/EKG's, fci records)? Report findings @ -I reviewed prior charts prior lab work and [facility]ci charts on this patient. Differential Diagnosis (chest pain, altered mental status, abdominal pain women, abdominal pain men, vaginal bleeding, weakness, fever, dyspnea, syncope, headache, dizziness, GI bleed, back pain, seizure, CVA, palpatations, mental health, musculoskeletal)? @ -Differential Chest Pain: Stable Angina, Unstable Angina, STEMI, NSTEMI Aortic Dissection, Pneumothorax, Musculoskeletal, Esophageal Spasm GERD, Cholecystitis, Pancreatitis, Zoster, this is not meant to be an all-inclusive list. EKG interpreted by me (3pts min.). @ -[As above] X-rays interpreted by me (1pt min.). @ -Chest x-ray shows no acute abnormality CT interpreted by me (1pt min.). @ -[None done] U/S interpreted by me (1pt. min.). @ -[None done] What testing was considered but not performed or refused? (CT, X-rays, U/S, labs)? Why? @ -[None] What meds were considered but not given or refused? Why? @ -[None] Did you discuss the management of the patient with other professionals (professionals i.e. , PA, CLERICAL SUPPORT, lab, RT, psych nurse, case management social worker, spring manufacturing set up technician, teacher, hospital security officer, case management director)? Give summary @ -I spoke with sheet he agreed to admit the patient to the patient wrote admitting orders Was smoking cessation discussed for >3mins.? @ -[No] Was critical care preformed (if so, how long)? @ -[No] Were there social determinants of health that impacted care today? How? (Homelessness, low income, unemployed, alcoholism, drug addiction, transportation, low edu. Level, literacy, decrease access to med. care, fdc, rehab)? @ -[No] Was there de-escalation of care discussed even if they declined (Discuss DNR or withdrawal of care, Hospice)? DNR status @ -[No] What co-morbidities impacted this encounter? (DM, HTN, Smoking, COPD, CAD, Cancer, CVA, ARF, Chemo, Hep., AIDS, mental health diagnosis, sleep apnea, morbid obesity)? @ -[None] Was patient admitted / discharged? Hospital course, mention meds given and route, prescriptions, significant lab abnormalities, going to OR and other pertinent info. @ -Patient was given aspirin and nitroglycerin in route. Patient given Nitropaste here in the emergency department. Patient's chest pain did improve slightly with the nitroglycerin. Patient's lab work came back within normal range x-rays showed no acute abnormality. I spoke with Dr. emery doctor she agreed to admit the patient admitted the patient wrote admitting orders I consulted cardiology. Undiagnosed new problem with uncertain prognosis? @ -[No] Drug Therapy requiring intensive monitoring for toxicity (Heparin, Nitro, Insulin, Cardizem)? @ -[No] Were any procedures done? @ -[No] Diagnosis/symptom? @ -Chest pain Acute, or Chronic, or Acute on Chronic? @ -Acute Uncomplicated (without systemic symptoms) or Complicated (systemic symptoms)? @ -Complicated Side effects of treatment? @ -[No] Exacerbation, Progression, or Severe Exacerbation? @ -[No] Poses a threat to life or bodily function? How? (Chest pain, [place], DC, pneumonia, PE, COPD, DKA, ARF, appy, cholecystitis, CVA, Diverticulitis, Homicidal, Suicidal, threat to staff... and all critical care pts) @ -[No] - Lab Data Result diagrams: 02/14/23 08:03 02/14/23 08:03 Lab Results 02/14/23 02/14/23 02/14/23 Range/Units 08:03 08:03 08:03 WBC 5.6 (3.8-10.6) k/uL RBC 3.71 L (3.80-5.40) m/uL Hgb 10.5 L (11.4-16.0) gm/dL Hct 33.5 L (34.0-46.0) % MCV 90.4 (80.0-100.0) fL MCH 28.3 (25.0-35.0) pg MCHC 31.3 (31.0-37.0) g/dL RDW 16.8 H (11.5-15.5) % Plt Count 337 (150-450) k/uL MPV 7.7 Neutrophils % 53 % Lymphocytes % 33 % Monocytes % 8 % Eosinophils % 4 % Basophils % 1 % Neutrophils # 3.0 (1.3-7.7) k/uL Lymphocytes # 1.9 (1.0-4.8) k/uL Monocytes # 0.4 (0-1.0) k/uL Eosinophils # 0.2 (0-0.7) k/uL Basophils # 0.0 (0-0.2) k/uL Hypochromasia Moderate Anisocytosis Slight PT 11.0 (10.0-12.5) sec INR 1.0 (<1.2) APTT 26.8 (22.0-30.0) sec Sodium 140 (137-145) mmol/L Potassium 3.7 (3.5-5.1) mmol/L Chloride 102 (98-107) mmol/L Carbon Dioxide 28 (22-30) mmol/L Anion Gap 10 mmol/L BUN 15 (7-17) mg/dL Creatinine 0.93 (0.52-1.04) mg/dL Est GFR (CKD-EPI)AfAm 72 (>60 ml/min/1.73 sqM) Est GFR (CKD-EPI)NonAf 63 (>60 ml/min/1.73 sqM) Glucose 116 H (74-99) mg/dL Calcium 10.4 H (8.4-10.2) mg/dL Magnesium 2.0 (1.6-2.3) mg/dL Total Bilirubin 1.0 (0.2-1.3) mg/dL AST 19 (14-36) U/L ALT 9 (4-34) U/L Alkaline Phosphatase 100 (38-126) U/L Troponin I (0.000-0.034) ng/mL NT-Pro-B Natriuret Pep 1700 pg/mL Total Protein 6.5 (6.3-8.2) g/dL Albumin 3.6 (3.5-5.0) g/dL 02/14/23 Range/Units 08:03 WBC (3.8-10.6) k/uL RBC (3.80-5.40) m/uL Hgb (11.4-16.0) gm/dL Hct (34.0-46.0) % MCV (80.0-100.0) fL MCH (25.0-35.0) pg MCHC (31.0-37.0) g/dL RDW (11.5-15.5) % Plt Count (150-450) k/uL MPV Neutrophils % % Lymphocytes % % Monocytes % % Eosinophils % % Basophils % % Neutrophils # (1.3-7.7) k/uL Lymphocytes # (1.0-4.8) k/uL Monocytes # (0-1.0) k/uL Eosinophils # (0-0.7) k/uL Basophils # (0-0.2) k/uL Hypochromasia Anisocytosis PT (10.0-12.5) sec INR (<1.2) APTT (22.0-30.0) sec Sodium (137-145) mmol/L Potassium (3.5-5.1) mmol/L Chloride (98-107) mmol/L Carbon Dioxide (22-30) mmol/L Anion Gap mmol/L BUN (7-17) mg/dL Creatinine (0.52-1.04) mg/dL Est GFR (CKD-EPI)AfAm (>60 ml/min/1.73 sqM) Est GFR (CKD-EPI)NonAf (>60 ml/min/1.73 sqM) Glucose (74-99) mg/dL Calcium (8.4-10.2) mg/dL Magnesium (1.6-2.3) mg/dL Total Bilirubin (0.2-1.3) mg/dL AST (14-36) U/L ALT (4-34) U/L Alkaline Phosphatase (38-126) U/L Troponin I <0.012 (0.000-0.034) ng/mL NT-Pro-B Natriuret Pep pg/mL Total Protein (6.3-8.2) g/dL Albumin (3.5-5.0) g/dL Disposition Clinical Impression: Chest pain Disposition: ADMITTED IP TO THIS HOSP Referrals: Kye Mitchell DO [Primary Care Provider] - 1-2 days Time of Disposition: 09:31
[2023-02-14 08:18] LABS: ALT 9 U/L (4-34); AST 19 U/L (14-36); African American GFR (CKD) 72 (>60 ml/min/1.73 sqM); Albumin 3.6 g/dL (3.5-5.0); Alkaline Phosphatase 100 U/L (38-126); Anion Gap 10 mmol/L; Blood Urea Nitrogen 15 mg/dL (7-17); Calcium 10.4 mg/dL (8.4-10.2); Carbon Dioxide 28 mmol/L (22-30); Chloride 102 mmol/L (98-107); Glucose 116 mg/dL (74-99); Non-African American GFR(CKD) 63 (>60 ml/min/1.73 sqM); Potassium 3.7 mmol/L (3.5-5.1); Sodium 140 mmol/L (137-145); Total Protein 6.5 g/dL (6.3-8.2)
--- NOTE | 2023-02-14 08:21 | XR ---
EXAMINATION TYPE: XR chest 2V DATE OF EXAM: 02/14/2023 COMPARISON: 10/16/2022 HISTORY: Shortness of breath TECHNIQUE: Frontal and lateral views of the chest are obtained. FINDINGS: Scattered senescent parenchymal changes noted. Hyperinflation compatible with COPD. No evidence for infiltrate. No evidence for atelectasis. Heart size is stable. Mediastinal structures are stable and grossly unremarkable. No evidence for hilar prominence. Degenerative changes dorsal spine. IMPRESSION: 1. No evidence for acute pulmonary disease.
[2023-02-14 08:27] LABS: NT-Pro-B-Type Natriuretic Pept 1700 pg/mL
[2023-02-14 08:59] LABS: Partial Thromboplastin Time 26.8 sec (22.0-30.0)
[2023-02-14 09:05] LABS: Anisocytosis Slight; Basophils % (A) 1 %; Eosinophils # (A) 0.2 k/uL (0-0.7); Eosinophils % (A) 4 %; HCT 33.5 % (34.0-46.0); HGB 10.5 gm/dL (11.4-16.0); Hypochromasia Moderate; Lymphocytes # (A) 1.9 k/uL (1.0-4.8); Lymphocytes % (A) 33 %; MCH 28.3 pg (25.0-35.0); MCHC 31.3 g/dL (31.0-37.0); MCV 90.4 fL (80.0-100.0); Mean Platelet Volume 7.7; Monocytes # (A) 0.4 k/uL (0-1.0); Monocytes % (A) 8 %; Neutrophils % (A) 53 %; Platelet Count 337 k/uL (150-450); RBC 3.71 m/uL (3.80-5.40); RDW 16.8 % (11.5-15.5); WBC 5.6 k/uL (3.8-10.6)
[2023-02-14] MEDS ORDERED: NITROGLYCERIN SL TABS 0.4 MG TAB SUBLINGUAL PRN (09:31)
[2023-02-14] MEDS ORDERED: bisacodyL 10 MG SUPP RECTAL PRN (09:32)
[2023-02-14] MEDS ORDERED: FUROSEMIDE 10 MG/ML 4 ML VIAL IV SCH (10:00)
--- NOTE | 2023-02-14 10:07 | P.HPIM ---
History of Present Illness this is a pleasant 73 yo female with past medical history of diabetes mellitus, hypertension, persistent atrial fibrillation, diastolic CHF, COPD, hyperlipidemia, hypertension, h on anticoagulation with eliquis . History of rheumatoid arthritis on methotrexate. As per report patient had recent cardiac cath with no stent placement. Anxiety and depression, history of stroke with left hemiparesis, spinal stenosi s,. Patient was in rehab for left total knee arthroplasty. Patient was sent from rehab today for chest pain which started yesterday, states that she has this chest pain on and off for the last 2 years, currently she rated as 7/10 on the left side radiating little bit to the back and felt like pressures with no precipitating or relieving factors. She is also complaining of from generalized abdominal pain and mild tenderness with no guarding or rebound tenderness but also she has been constipated and her last bowel movement was about 2 days ago. Patient says she is a little short of breath and also complains from orthopnea and paroxysmal nocturnal dyspnea. She still has some pain in her left knee although there is no swelling or tenderness or erythema and the wound is closed and healed. Vital signs stable and patient is afebrile and Labs reviewed showing globin is 10.5, rest of labs are unremarkable including INR, BMP and liver enzymes. EKG showing atrial fibrillation at the rate of 67 Chest x-ray: Showing cardiomegaly with possible mild vascular congestion similar to chest x-ray from 10/2022 when she was also diagnosed with CHF ProBNP is mildly elevated as before 1700 Review of Systems Review of systems CONSTITUTIONAL: No fever, no malaise, no fatigue. HEENT: No recent visual problems or hearing problems. Denied any sore throat. CARDIOVASCULAR: no palpitations, no syncope. PULMONARY: no cough, no hemoptysis. GASTROINTESTINAL: No diarrhea, no nausea, no vomiting, . Normoactive bowel sounds. NEUROLOGICAL: No headaches, no weakness, no numbness. HEMATOLOGICAL: Denies any bleeding or petechiae. GENITOURINARY: Denies any burning micturition, frequency, or urgency. MUSCULOSKELETAL/RHEUMATOLOGICAL: Denies any swelling, or any muscle pain. ENDOCRINE: Denies any polyuria or polydipsia. 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 Spinal stenosis. Poss thyroid issue. Varicose veins,. CHF History of Any Multi-Drug Resistant Organisms: None Reported Past Surgical History: Cholecystectomy, Heart Catheterization, Hernia Repair, Orthopedic Surgery Additional Past Surgical History / Comment(s): removed bone in left foot, Umbilical hernia, CARDIOVERSION, total right knee replacement Past Anesthesia/Blood Transfusion Reactions: No Reported Reaction Past Psychological History: Anxiety, Depression Smoking Status: Former smoker Past Alcohol Use History: None Reported Past Drug Use History: None Reported - Past Family History Father History Unknown: Yes Sister(s) Family Medical History: Cancer Additional Family Medical History / Comment(s): breast cancer Mother Family Medical History: Deep Vein Thrombosis (DVT) Medications and Allergies Home Medications Medication Instructions Recorded Confirmed Type RX: Folic Acid 1 mg PO DAILY@1200 09/07/22 02/14/23 History RX: metHOTREXate sodium 20 mg PO MO 10/16/22 02/14/23 History HYDROcodone/APAP 10-325MG [[place] 1 tab PO Q6HR PRN 7 Days #32 tab 12/10/22 02/14/23 Rx 10-325] RX: Omeprazole 40 mg PO DAILY 30 Days #30 cap 12/10/22 02/14/23 Rx Cholecalciferol [Vitamin D3 (25 25 mcg PO DAILY 02/14/23 02/14/23 History Mcg = 1000 Iu)] Docusate [Colace] 100 mg PO BID@0800,1700 02/14/23 02/14/23 History Empagliflozin [Jardiance] 10 mg PO DAILY@0600 02/14/23 02/14/23 History Escitalopram Oxalate [Lexapro] 10 mg PO DAILY 02/14/23 02/14/23 History Ferrous Sulfate [Feosol] 325 mg PO DAILY 02/14/23 02/14/23 History Furosemide [Lasix] 20 mg PO DAILY 02/14/23 02/14/23 History INSULIN LISPRO (HumaLOG) [humaLOG] See Protocol SQ ACHS 02/14/23 02/14/23 History Isosorbide Mononitrate ER [Imdur] 30 mg PO DAILY 02/14/23 02/14/23 History Na Phos,M-B/Na Phos,Di-Ba [Fleet 133 ml RECTAL DAILY PRN 02/14/23 02/14/23 History Adult] Nitroglycerin Sl Tabs [Nitrostat] 0.4 mg PO Q5M PRN 02/14/23 02/14/23 History RX: Apixaban [Eliquis] 5 mg PO BID@0800,1700 02/14/23 02/14/23 History RX: Lactulose 10 gm PO BID@0800,1700 02/14/23 02/14/23 History RX: Metoprolol Tartrate [Lopressor] 50 mg PO BID@0800,1700 02/14/23 02/14/23 History RX: Spironolactone 25 mg PO DAILY 02/14/23 02/14/23 History Semaglutide [Ozempic] 1 mg SQ WE 02/14/23 02/14/23 History Sennosides-Docusate Sodium 1 tab PO HS 02/14/23 02/14/23 History [Senokot-S] azaTHIOprine [Imuran] 50 mg PO TID@0600,1400,2200 02/14/23 02/14/23 History bisacodyL [Dulcolax] 10 mg RECTAL DAILY PRN 02/14/23 02/14/23 History hydrALAZINE HCL [Apresoline] 50 mg PO BID 02/14/23 02/14/23 History oxyCODONE ER [OxyCONTIN] 10 mg PO BID 02/14/23 02/14/23 History polyethylene glycoL 3350 [Miralax] 17 gm PO DAILY PRN 02/14/23 02/14/23 History traZODone HCL [Desyrel] 50 mg PO HS 02/14/23 02/14/23 History Allergies Allergy/AdvReac Type Severity Reaction Status Date / Time No Known Allergies Allergy Verified 02/14/23 08:17 Physical Exam Vitals: Vital Signs Temp Pulse Resp BP Pulse Ox 02/14/23 07:40 97.5 F L 74 18 116/75 98 Intake and Output 02/13/23 02/14/23 02/14/23 22:59 06:59 14:59 Other: Weight 68.039 kg GENERAL: The patient is alert and oriented x3, not in any acute distress. Well developed, well nourished. HEENT: Pupils are round and equally reacting to light. EOMI. No scleral icterus. No conjunctival pallor. Normocephalic, atraumatic. No pharyngeal erythema. No thyromegaly. CARDIOVASCULAR: S1 and S2 present. No murmurs, rubs, or gallops. -PULMONARY: Chest is clear to auscultation, no wheezing , no crackles. Mild basal crepitation ABDOMEN: Soft, nontender, nondistended, normoactive bowel sounds. No palpable organomegaly. -MUSCULOSKELETAL: No joint swelling or deformity. Left knee scar is close and healed EXTREMITIES: No cyanosis, clubbing, or pedal edema. NEUROLOGICAL: Gross neurological examination did not reveal any focal deficits. SKIN: No rashes. no petechiae. Results CBC & Chem 7: 02/14/23 08:03 02/14/23 08:03 Labs: Abnormal Lab Results - Last 24 Hours (Table) 02/14/23 02/14/23 Range/Units 08:03 08:03 RBC 3.71 L (3.80-5.40) m/uL Hgb 10.5 L (11.4-16.0) gm/dL Hct 33.5 L (34.0-46.0) % RDW 16.8 H (11.5-15.5) % Glucose 116 H (74-99) mg/dL Calcium 10.4 H (8.4-10.2) mg/dL Assessment and Plan Assessment: Chest pain, rule out chronic cholecystitis Mild acute on chronic diastolic CHF with a preserved ejection fraction Persistent atrial fibrillation on anticoagulation, currently rate controlled Generalized abdominal pain with constipation, rule out bowel obstruction Left knee pain, status post left total knee arthroplasty 2 months ago Diabetes mellitus Hypertension COPD, though exacerbation Hyperlipidemia History of rheumatoid arthritis on methotrexate and azathioprine Plan: Continue with aspirin Cardiology consult We'll do IV Lasix IV Check CT of the abdomen and pelvis with oral contrast only Orthopedic team consult for ongoing left knee pain Labs and medication were reviewed.. Continue same treatment. Continue with symptomatic treatment. Resume home medication. Monitor labs and vitals. DVT and GI prophylaxis. Further recommendations as per clinical course of the patient DVT prophylaxis: eliquis GI Prophylaxis: Ppi PT/OT: pt is from rehab already Prognosis is guarded
[2023-02-14] MEDS: HYDROcodone/APAP 10-325MG 1 EACH TAB PO PRN ×2 (10:49→17:42)
[2023-02-14] MEDS ORDERED: NITROGLYCERIN OINT 1 INCH/GM PACKET TOPICAL SCH (12:00)
--- NOTE | 2023-02-14 12:19 | P.CNOR ---
History of Present Illness - [facility] Consult date: 02/14/23 History of present illness: The patient is very pleasant 73-year-old female who is well-known to my practice. She previously underwent a total knee replacement on the right several months ago. She is been slow to progress postoperatively. She has developed stiffness and difficulty ambulating. She is in rehab. She was recently admitted with chest pain. Internal medicine. Orthopedics was consulted due to knee pain. At the time of my evaluation the patient states that her knee pain is improving slowly. She still has a hard time walking. 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 Spinal stenosis. Poss thyroid issue. Varicose veins,. CHF History of Any Multi-Drug Resistant Organisms: None Reported Past Surgical History: Cholecystectomy, Heart Catheterization, Hernia Repair, O rthopedic Surgery Additional Past Surgical History / Comment(s): removed bone in left foot, Umbilical hernia, CARDIOVERSION, total right knee replacement Past Anesthesia/Blood Transfusion Reactions: No Reported Reaction Past Psychological History: Anxiety, Depression Smoking Status: Former smoker Past Alcohol Use History: None Reported Past Drug Use History: None Reported - Past Family History Father History Unknown: Yes Sister(s) Family Medical History: Cancer Additional Family Medical History / Comment(s): breast cancer Mother Family Medical History: Deep Vein Thrombosis (DVT) Medications and Allergies Home Medications Medication Instructions Recorded Confirmed Type Folic Acid 1 mg PO DAILY@1200 09/07/22 02/14/23 History metHOTREXate sodium 20 mg PO MO 10/16/22 02/14/23 History HYDROcodone/APAP 10-325MG [[place] 1 tab PO Q6HR PRN 7 Days #32 tab 12/10/22 02/14/23 Rx 10-325] Omeprazole 40 mg PO DAILY 30 Days #30 cap 12/10/22 02/14/23 Rx Apixaban [Eliquis] 5 mg PO BID@0800,1700 02/14/23 02/14/23 History Cholecalciferol [Vitamin D3 (25 25 mcg PO DAILY 02/14/23 02/14/23 History Mcg = 1000 Iu)] Docusate [Colace] 100 mg PO BID@0800,1700 02/14/23 02/14/23 History Empagliflozin [Jardiance] 10 mg PO DAILY@0600 02/14/23 02/14/23 History Escitalopram Oxalate [Lexapro] 10 mg PO DAILY 02/14/23 02/14/23 History Ferrous Sulfate [Feosol] 325 mg PO DAILY 02/14/23 02/14/23 History Furosemide [Lasix] 20 mg PO DAILY 02/14/23 02/14/23 History INSULIN LISPRO (HumaLOG) [humaLOG] See Protocol SQ ACHS 02/14/23 02/14/23 Histo ry Isosorbide Mononitrate ER [Imdur] 30 mg PO DAILY 02/14/23 02/14/23 History Lactulose 10 gm PO BID@0800,1700 02/14/23 02/14/23 History Metoprolol Tartrate [Lopressor] 50 mg PO BID@0800,1700 02/14/23 02/14/23 History Na Phos,M-B/Na Phos,Di-Ba [Fleet 133 ml RECTAL DAILY PRN 02/14/23 02/14/23 History Adult] Nitroglycerin Sl Tabs [Nitrostat] 0.4 mg PO Q5M PRN 02/14/23 02/14/23 History Semaglutide [Ozempic] 1 mg SQ WE 02/14/23 02/14/23 History Sennosides-Docusate Sodium 1 tab PO HS 02/14/23 02/14/23 History [Senokot-S] Spironolactone 25 mg PO DAILY 02/14/23 02/14/23 History azaTHIOprine [Imuran] 50 mg PO TID@0600,1400,2200 02/14/23 02/14/23 History bisacodyL [Dulcolax] 10 mg RECTAL DAILY PRN 02/14/23 02/14/23 History hydrALAZINE HCL [Apresoline] 50 mg PO BID 02/14/23 02/14/23 History oxyCODONE ER [OxyCONTIN] 10 mg PO BID 02/14/23 02/14/23 History polyethylene glycoL 3350 [Miralax] 17 gm PO DAILY PRN 02/14/23 02/14/23 History traZODone HCL [Desyrel] 50 mg PO HS 02/14/23 02/14/23 History Allergies Allergy/AdvReac Type Severity Reaction Status Date / Time No Known Allergies Allergy Verified 02/14/23 08:17 Physical Examination The patient is resting comfortably in bed. A focused exam of the right lower extremity was conducted. On inspection there is a prior anterior incision over the knee from prior total knee arthroplasty. There is superficial wound breakdown proximally but no erythema or drainage. There is minimal effusion of the knee. There is no erythema or warmth. She has a 30 flexion contracture and flexion to 100. Results - Labs Labs: Abnormal Lab Results - Last 24 Hours (Table) 02/14/23 02/14/23 Range/Units 08:03 08:03 RBC 3.71 L (3.80-5.40) m/uL Hgb 10.5 L (11.4-16.0) gm/dL Hct 33.5 L (34.0-46.0) % RDW 16.8 H (11.5-15.5) % Glucose 116 H (74-99) mg/dL Calcium 10.4 H (8.4-10.2) mg/dL H & H 02/14/23 Range/Units 08:03 Hgb 10.5 L (11.4-16.0) gm/dL Hct 33.5 L (34.0-46.0) % Coagulation 02/14/23 Range/Units 08:03 INR 1.0 (<1.2) Result Diagrams: 02/14/23 08:03 02/14/23 08:03 Assessment and Plan Assessment: Postop total knee replacement, right Delayed wound healing Plan: The patient has delayed wound healing and stiffness in her knee following a knee replacement. I do not see any active drainage or signs of deep infection. I like to hold off on aspirating her right knee. I would recommend local wound care with [facility] and a formal wound consultation. I should see the patient in the office in 1 week's time for follow-up. She is okay to discharge from an orthopedic standpoint
--- NOTE | 2023-02-14 12:23 | P.CRDCN ---
History of Present Illness Consult date: 02/14/23 Consult reason: chest pain History of present illness: History of present illness: This is a 73-year-old female patient of Dr. Fatima with past medical history of chronic permanent atrial fibrillation on eliquis, hypertension, diabetes mellitus type 2. Patient was last seen in the office on November 26 for clearance for right total knee arthroplasty. Patient came in from [facility] regarding knee pain. She is to see the orthopedic surgeon today. Patient also has had some left-sided to mid sternal chest pain that's a hammering-type constant pain. She denies shortness of breath, palpitations, lightheadedness or dizziness. BMP is unremarkable. She has a history of cardiac catheterization in September of this year which showed mild coronary artery disease. Patient has been started on IV Lasix. EKG atrial fibrillation at a ventricular rate of 67 bpm Chest x-ray: No acute process WBC 5.6, hemoglobin 10.5, platelet count 337. INR 1.0. A lateralized renal function normal. Blood sugar 116. Troponins negative 2. ProBNP 1700. Home cardiac medications: Eliquis 5 mg twice daily, Lasix 20 mg daily, hydralazine 50 mg twice daily, Imdur 30 mg daily, Lopressor 50 mg twice daily, Nitrostat as needed, spironolactone 25 mg daily. Echocardiogram 2021 normal EF, moderate pulmonary hypertension. Review Of Systems: At the time of my evaluation: Constitutional: No fever, no chills. EENT: No headache. No dizziness. Lungs: No shortness of breath, cough, no sputum production. No wheezing. Cardiovascular: +chest pain, no lower extremity edema. No palpitations. No paroxysmal nocturnal dyspnea. No orthopnea. No lightheadedness or dizziness. No syncopal episodes. Abdominal: No abdominal pain. No nausea, vomiting. No bloody or tarry stools. Musculoskeletal: No myalgias. No muscle weakness, no frequent falls. Reports knee pain. Integumentary: No wounds. No rash. No unusual bruising. Neurologic: No aphasia. No facial droop. No change in mentation. Physical examination: Gen: This is a 73-year-old black female resting bed appears to be comfortable and in no acute distress. VS: reviewed HEENT: Head is atraumatic, normocephalic. Pupils equal, round. Sclerae is anicteric. LUNGS: Clear to auscultation. No wheezes or rhonchi. No intercostal retractions. HEART: Irregular rate and rhythm. No murmur. ABDOMEN: Soft No tenderness. EXTREMITIES: No pedal edema. No calf tenderness. NEUROLOGICAL: Patient is awake, alert. Assessment: Chronic atrial fibrillation Atypical chest pain, acute coronary syndrome ruled out Pulmonary hypertension History of tobacco use and dependence Knee pain Plan: Continue patient's home cardiac medications Discontinue IV Lasix and place patient on 40 oral daily No further cardiac workup is needed at this time Cardiology will sign off this case and follow on an as-needed basis. Please reconsult for any new concerns. Patient may follow-up in the office in one to 2 weeks. Thank you kindly for this consultation. Nurse practitioner note has been reviewed, I agree with documented findings and plan of care. Patient was seen and examined. 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 Spinal stenosis. Poss thyroid issue. Varicose veins,. CHF History of Any Multi-Drug Resistant Organisms: None Reported Past Surgical History: Cholecystectomy, Heart Catheterization, Hernia Repair, Orthopedic Surgery Additional Past Surgical History / Comment(s): removed bone in left foot, Umbilical hernia, CARDIOVERSION, total right knee replacement Past Anesthesia/Blood Transfusion Reactions: No Reported Reaction Past Psychological History: Anxiety, Depression Smoking Status: Former smoker Past Alcohol Use History: None Reported Past Drug Use History: None Reported - Past Family History Father History Unknown: Yes Sister(s) Family Medical History: Cancer Additional Family Medical History / Comment(s): breast cancer Mother Family Medical History: Deep Vein Thrombosis (DVT) Medications and Allergies Home Medications Medication Instructions Recorded Confirmed Type Folic Acid 1 mg PO DAILY@1200 09/07/22 02/14/23 History metHOTREXate sodium 20 mg PO MO 10/16/22 02/14/23 History HYDROcodone/APAP 10-325MG [[place] 1 tab PO Q6HR PRN 7 Days #32 tab 12/10/22 02/14/23 Rx 10-325] Omeprazole 40 mg PO DAILY 30 Days #30 cap 12/10/22 02/14/23 Rx Apixaban [Eliquis] 5 mg PO BID@0800,1700 02/14/23 02/14/23 History Cholecalciferol [Vitamin D3 (25 25 mcg PO DAILY 02/14/23 02/14/23 History Mcg = 1000 Iu)] Docusate [Colace] 100 mg PO BID@0800,1700 02/14/23 02/14/23 History Empagliflozin [Jardiance] 10 mg PO DAILY@0600 02/14/23 02/14/23 History Escitalopram Oxalate [Lexapro] 10 mg PO DAILY 02/14/23 02/14/23 History Ferrous Sulfate [Feosol] 325 mg PO DAILY 02/14/23 02/14/23 History Furosemide [Lasix] 20 mg PO DAILY 02/14/23 02/14/23 History INSULIN LISPRO (HumaLOG) [humaLOG] See Protocol SQ ACHS 02/14/23 02/14/23 History Isosorbide Mononitrate ER [Imdur] 30 mg PO DAILY 02/14/23 02/14/23 History Lactulose 10 gm PO BID@0800,1700 02/14/23 02/14/23 History Metoprolol Tartrate [Lopressor] 50 mg PO BID@0800,1700 02/14/23 02/14/23 History Na Phos,M-B/Na Phos,Di-Ba [Fleet 133 ml RECTAL DAILY PRN 02/14/23 02/14/23 History Adult] Nitroglycerin Sl Tabs [Nitrostat] 0.4 mg PO Q5M PRN 02/14/23 02/14/23 History Semaglutide [Ozempic] 1 mg SQ WE 02/14/23 02/14/23 History Sennosides-Docusate Sodium 1 tab PO HS 02/14/23 02/14/23 History [Senokot-S] Spironolactone 25 mg PO DAILY 02/14/23 02/14/23 History azaTHIOprine [Imuran] 50 mg PO TID@0600,1400,2200 02/14/23 02/14/23 History bisacodyL [Dulcolax] 10 mg RECTAL DAILY PRN 02/14/23 02/14/23 History hydrALAZINE HCL [Apresoline] 50 mg PO BID 02/14/23 02/14/23 History oxyCODONE ER [OxyCONTIN] 10 mg PO BID 02/14/23 02/14/23 History polyethylene glycoL 3350 [Miralax] 17 gm PO DAILY PRN 02/14/23 02/14/23 History traZODone HCL [Desyrel] 50 mg PO HS 02/14/23 02/14/23 History Allergies Allergy/AdvReac Type Severity Reaction Status Date / Time No Known Allergies Allergy Verified 02/14/23 08:17 Physical Exam Vitals: Vital Signs Temp Pulse Pulse Resp BP BP Pulse Ox 02/14/23 10:30 97.4 F L 66 18 135/74 100 02/14/23 09:55 97.8 F 71 18 164/76 97 02/14/23 07:40 97.5 F L 74 18 116/75 98 Intake and Output 02/13/23 02/14/23 02/14/23 22:59 06:59 14:59 Other: Weight 68.039 kg Results 02/14/23 08:03 02/14/23 08:03 Cardiac Enzymes 02/14/23 02/14/23 Range/Units 08:03 08:03 AST 19 (14-36) U/L Troponin I <0.012 (0.000-0.034) ng/mL Coagulation 02/14/23 Range/Units 08:03 PT 11.0 (10.0-12.5) sec APTT 26.8 (22.0-30.0) sec CBC 02/14/23 Range/Units 08:03 WBC 5.6 (3.8-10.6) k/uL RBC 3.71 L (3.80-5.40) m/uL Hgb 10.5 L (11.4-16.0) gm/dL Hct 33.5 L (34.0-46.0) % Plt Count 337 (150-450) k/uL Comprehensive Metabolic Panel 02/14/23 Range/Units 08:03 Sodium 140 (137-145) mmol/L Potassium 3.7 (3.5-5.1) mmol/L Chloride 102 (98-107) mmol/L Carbon Dioxide 28 (22-30) mmol/L BUN 15 (7-17) mg/dL Creatinine 0.93 (0.52-1.04) mg/dL Glucose 116 H (74-99) mg/dL Calcium 10.4 H (8.4-10.2) mg/dL AST 19 (14-36) U/L ALT 9 (4-34) U/L Alkaline Phosphatase 100 (38-126) U/L Total Protein 6.5 (6.3-8.2) g/dL Albumin 3.6 (3.5-5.0) g/dL Current Medications Generic Name Dose Route Start Last Admin Trade Name Freq PRN Reason Stop Dose Admin Hydrocodone Bitart/Acetaminophen 1 each 02/14/23 09:32 02/14/23 10:49 Hydrocodone/Apap 10-325mg 1 Each Tab PO 1 each Q6HR PRN Administration Pain Apixaban 5 mg 02/14/23 17:00 Apixaban 5 Mg Tab PO BID@0800,1700 [facility] Protocol Aspirin 325 mg 02/15/23 09:00 Aspirin 325 Mg Tab PO DAILY [facility] Azathioprine 50 mg 02/14/23 14:00 Azathioprine 50 Mg Tab PO TID@0600,1400,2200 [facility] Bisacodyl 10 mg 02/14/23 09:32 Bisacodyl 10 Mg Supp RECTAL DAILY PRN Constipation Cholecalciferol 25 mcg 02/15/23 09:00 Cholecalciferol 25 Mcg (1000 Iu) Tablet PO DAILY [facility] Dapagliflozin 5 mg 02/15/23 06:00 Dapagliflozin Propanediol 5 Mg Tablet PO DAILY@0600 [facility] Docusate Sodium 100 mg 02/14/23 17:00 Docusate 100 Mg Cap PO BID@0800,1700 [facility] Escitalopram Oxalate 10 mg 02/15/23 09:00 Escitalopram 10 Mg Tab PO DAILY [facility] Furosemide 40 mg 02/14/23 10:00 Furosemide 10 Mg/Ml 4 Ml Vial IV Q12HR [facility] Hydralazine HCl 50 mg 02/14/23 21:00 Hydralazine Hcl 50 Mg Tab PO BID [facility] Iopamidol 30 ml 02/14/23 10:06 Iopamidol Contrast (Oral Use) Vial PO 02/15/23 10:[address] Scan Methotrexate 20 mg 02/21/23 09:00 Methotrexate Sodium 2.5 Mg Tab PO MO [facility] Metoprolol Tartrate 50 mg 02/14/23 17:00 Metoprolol Tartrate 50 Mg Tab PO BID@0800,1700 [facility] Nitroglycerin 0.4 mg 02/14/23 09:31 Nitroglycerin Sl Tabs 0.4 Mg Tab SUBLINGUAL Q5M PRN Chest Pain Nitroglycerin 1 inch 02/14/23 12:00 Nitroglycerin Oint 1 Inch/Gm Packet TOPICAL Q6HR [facility] Pantoprazole Sodium 40 mg 02/15/23 09:00 Pantoprazole 40 Mg Tablet PO DAILY [facility] Spironolactone 25 mg 02/15/23 09:00 Spironolactone 25 Mg Tab PO DAILY [facility] Trazodone HCl 50 mg 02/14/23 21:00 Trazodone Hcl 50 Mg Tab PO [facility] Intake and Output 02/13/23 02/14/23 02/14/23 22:59 06:59 14:59 Other: Weight 68.039 kg Patient Weight 02/15/23 06:59 Weight 68.039 kg 02/14/23 08:03 02/14/23 08:03
[2023-02-14] MEDS: IOPAMIDOL CONTRAST (ORAL USE) VIAL PO PRN ×2 (12:48→13:51)
[2023-02-14 13:08] LABS: Glucose,Whole Blood 99 mg/dL (70-110)
--- NOTE | 2023-02-14 14:43 | CT ---
EXAMINATION TYPE: CT abdomen pelvis wo con CT DLP: 423.5 mGycm, Automated exposure control for dose reduction was used. DATE OF EXAM: 02/14/2023 2:25 PM COMPARISON: CT abdomen pelvis most recent from 11/09/2022 . CLINICAL INDICATION:Female, 73 years old with history of abd pain; abdominal pain TECHNIQUE: Standard CT of the abdomen and pelvis following the administration of oral contrast. Cor onal and sagittal reformats were performed. FINDINGS: Limited examination due to lack of intravenous contrast. LOWER CHEST: Linear scarring within the right lower lobe. Resolution of previously seen nodular densi ties within the right lower lobe. Cardiomegaly. ABDOMEN LIVER: Unremarkable GALLBLADDER AND BILE DUCTS: The gallbladder is surgically absent. PANCREAS: Unremarkable. SPLEEN: Unremarkable. ADRENAL GLANDS: Unremarkable. KIDNEYS AND URETERS: No evidence of hydronephrosis or renal calculus. Somewhat lobulated appearance o f the left kidney.. PELVIS BLADDER: 3 small urinary bladder diverticulum identified. REPRODUCTIVE: The uterus is surgically absent. ABDOMEN & PELVIS STOMACH AND BOWEL: Stomach and duodenum are unremarkable. No evidence of bowel obstruction. Distal co lonic diverticulosis without evidence for acute diverticulitis. Enteric contrast reaches the cecum. T he appendix is within normal limits. PERITONEUM: No evidence of pneumoperitoneum or free fluid. VASCULATURE: Mild atherosclerotic calcifications are present throughout the abdominal aorta and its b ranches. No evidence of aortic aneurysm. Pelvic phleboliths. MUSCULOSKELETAL: No acute osseous abnormalities. Grade 1 anterolisthesis of L4 on L5 without evidence of pars defects. LYMPH NODES: No gross evidence for lymphadenopathy. SOFT TISSUE/ABDOMINAL WALL: Left lower back neurostimulator power pack identified. The leads extend i nto the thoracic spine canal. Small supraumbilical fat filled hernia. IMPRESSION: 1. No acute abdominal/pelvic process. 2. Colonic diverticulosis without evidence for acute diverticulosis. 3. Ureter bladder diverticula.
[2023-02-14] MEDS: azaTHIOprine 50 MG TAB PO SCH ×2 (15:10→20:51)
[2023-02-14] MEDS: ISOSORBIDE MONONITRATE ER 30 MG TAB.ER.24H PO SCH (15:10)
[2023-02-14] MEDS: METOPROLOL TARTRATE 50 MG TAB PO SCH (17:41)
[2023-02-14] MEDS: DOCUSATE 100 MG CAP PO SCH (17:41)
[2023-02-14] MEDS: APIXABAN 5 MG TAB PO SCH (17:42)
[2023-02-14] MEDS: traZODone HCL 50 MG TAB PO SCH (20:50)
[2023-02-15] MEDS: HYDROcodone/APAP 10-325MG 1 EACH TAB PO PRN ×4 (00:09→20:29)
[2023-02-15 01:31] LABS: Appearance,Urine Clear (Clear); Bilirubin,Urine Negative (Negative); Blood,Urine Negative (Negative); Color,Urine Yellow; Glucose,Urine (UA) 4+ (Negative); Ketones,Urine Negative (Negative); Leukocyte Esterase,Urine Negative (Negative); Nitrite,Urine Negative (Negative); PH, Urine 5.5 (5.0-8.0); Protein,Urine Negative (Negative); Specific Gravity,Urine 1.032 (1.001-1.035); Urobilinogen,Urine <2.0 mg/dL (<2.0)
[2023-02-15] MEDS: hydrALAZINE HCL 50 MG TAB PO SCH ×3 (04:53→20:29)
[2023-02-15] MEDS: azaTHIOprine 50 MG TAB PO SCH ×3 (06:17→20:29)
[2023-02-15] MEDS: SPIRONOLACTONE 25 MG TAB PO SCH (08:40)
[2023-02-15] MEDS: METOPROLOL TARTRATE 50 MG TAB PO SCH ×2 (08:40→17:07)
[2023-02-15] MEDS: ESCITALOPRAM 10 MG TAB PO SCH (08:40)
[2023-02-15] MEDS: ISOSORBIDE MONONITRATE ER 30 MG TAB.ER.24H PO SCH (08:40)
[2023-02-15] MEDS: PANTOPRAZOLE 40 MG TABLET PO SCH (08:40)
[2023-02-15] MEDS: DAPAGLIFLOZIN PROPANEDIOL 5 MG TABLET PO SCH (08:40)
[2023-02-15] MEDS: APIXABAN 5 MG TAB PO SCH ×2 (08:40→17:07)
[2023-02-15] MEDS: CHOLECALCIFEROL 25 MCG (1000 IU) TABLET PO SCH (08:41)
[2023-02-15] MEDS: FUROSEMIDE 40 MG TAB PO SCH (08:41)
[2023-02-15] MEDS: DOCUSATE 100 MG CAP PO SCH ×2 (08:41→17:07)
[2023-02-15] MEDS: ASPIRIN 325 MG TAB PO SCH (08:41)
[2023-02-15] MEDS ORDERED: FUROSEMIDE 20 MG TAB PO SCH (09:00)
[2023-02-15 11:08] LABS: Blood Urea Nitrogen 14.4 mg/dL (9.0-27.0); Calcium 10.5 mg/dL (8.7-10.3); Carbon Dioxide 28.5 mmol/L (21.6-31.8); Chloride 106 mmol/L (96-109); Chol/HDL Ratio 4.44 Ratio; Glucose 129 mg/dL (70-110); LDL Cholesterol,Calculated 93.9 mg/dL (0.0-131.0); Sodium 144 mmol/L (135-145)
--- NOTE | 2023-02-15 12:20 | P.CONS ---
History of Present Illness - Reason for Consult Consult date: 02/15/23 wound care - History of Present Illness This is a 73-year-old patient being seen for a nonhealing ulceration of a total knee arthroplasty. Patient had the OPERATION at the beginning of the month. The distal portion of the incision line is well approximated. However there is a small portion superior of the incision line with a nonhealing ulceration measuring as tightly 1.5 x 0.4 x 0.2 cm with minimal granulation Slough and nonviable tissue present. Patient is unsure of what has been utilized previously for the ulceration. Review Of Systems: Constitutional: No fever, no chills, no night sweats. No weight change. No weakness, fatigue or lethargy. No daytime sleepiness. Integumentary:reports wounds, no lesions. No rash or pruritus. No unusual bruising. No change in hair or nails. Physical exam: General Appearance: Alert, cooperative, no distress, appears stated age. Skin: See HPI all other Skin color, texture, tugor normal, no rashes or lesions. Neurologic: Alert oriented x3 Assessment: 1. Nonhealing ulceration right knee with fat layer exposure 2. Diabetes with skin ulceration 3. Atrial fibrillation Plan: 1. Apply honey gel and border foam. It changed Tuesday. Please have the patient admitted to Dr. Ninfa reis for wound care at [facility]. Thank you for the consultation any questions contact the wound care center DNP note has been reviewed and discussed with Dr. Riggs and the impression and plan of care has been directed as dictated. 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 Spinal stenosis. Poss thyroid issue. Varicose veins,. CHF History of Any Multi-Drug Resistant Organisms: None Reported Past Surgical History: Cholecystectomy, Heart Catheterization, Hernia Repair, Orthopedic Surgery Additional Past Surgical History / Comment(s): removed bone in left foot, Umbilical hernia, CARDIOVERSION, total right knee replacement Past Anesthesia/Blood Transfusion Reactions: No Reported Reaction Past Psychological History: Anxiety, Depression Smoking Status: Former smoker Past Alcohol Use History: None Reported Past Drug Use History: None Reported - Past Family History Father History Unknown: Yes Sister(s) Family Medical History: Cancer Additional Family Medical History / Comment(s): breast cancer Mother Family Medical History: Deep Vein Thrombosis (DVT) Medications and Allergies Home Medications Medication Instructions Recorded Confirmed Type Folic Acid 1 mg PO DAILY@1200 09/07/22 02/14/23 History metHOTREXate sodium 20 mg PO MO 10/16/22 02/14/23 History HYDROcodone/APAP 10-325MG [[place] 1 tab PO Q6HR PRN 7 Days #32 tab 12/10/22 02/14/23 Rx 10-325] Omeprazole 40 mg PO DAILY 30 Days #30 cap 12/10/22 02/14/23 Rx Apixaban [Eliquis] 5 mg PO BID@0800,1700 02/14/23 02/14/23 History Cholecalciferol [Vitamin D3 (25 25 mcg PO DAILY 02/14/23 02/14/23 History Mcg = 1000 Iu)] Docusate [Colace] 100 mg PO BID@0800,1700 02/14/23 02/14/23 History Empagliflozin [Jardiance] 10 mg PO DAILY@0600 02/14/23 02/14/23 History Escitalopram Oxalate [Lexapro] 10 mg PO DAILY 02/14/23 02/14/23 History Ferrous Sulfate [Feosol] 325 mg PO DAILY 02/14/23 02/14/23 History Furosemide [Lasix] 20 mg PO DAILY 02/14/23 02/14/23 History INSULIN LISPRO (HumaLOG) [humaLOG] See Protocol SQ ACHS 02/14/23 02/14/23 History Isosorbide Mononitrate ER [Imdur] 30 mg PO DAILY 02/14/23 02/14/23 History Lactulose 10 gm PO BID@0800,1700 02/14/23 02/14/23 History Metoprolol Tartrate [Lopressor] 50 mg PO BID@0800,1700 02/14/23 02/14/23 History Na Phos,M-B/Na Phos,Di-Ba [Fleet 133 ml RECTAL DAILY PRN 02/14/23 02/14/23 History Adult] Nitroglycerin Sl Tabs [Nitrostat] 0.4 mg PO Q5M PRN 02/14/23 02/14/23 History Semaglutide [Ozempic] 1 mg SQ WE 02/14/23 02/14/23 History Sennosides-Docusate Sodium 1 tab PO HS 02/14/23 02/14/23 History [Senokot-S] Spironolactone 25 mg PO DAILY 02/14/23 02/14/23 History azaTHIOprine [Imuran] 50 mg PO TID@0600,1400,2200 02/14/23 02/14/23 History bisacodyL [Dulcolax] 10 mg RECTAL DAILY PRN 02/14/23 02/14/23 History hydrALAZINE HCL [Apresoline] 50 mg PO BID 02/14/23 02/14/23 History oxyCODONE ER [OxyCONTIN] 10 mg PO BID 02/14/23 02/14/23 History polyethylene glycoL 3350 [Miralax] 17 gm PO DAILY PRN 02/14/23 02/14/23 History traZODone HCL [Desyrel] 50 mg PO HS 02/14/23 02/14/23 History Allergies Allergy/AdvReac Type Severity Reaction Status Date / Time No Known Allergies Allergy Verified 02/14/23 08:17 Physical Exam Vitals: Vital Signs Temp Pulse Resp BP Pulse Ox 02/15/23 08:53 98 02/15/23 08:00 97.7 F 60 16 133/76 98 02/15/23 02:00 97.7 F 66 16 128/72 99 02/14/23 20:00 98.0 F 75 16 96/64 95 02/14/23 14:52 97.3 F L 75 16 128/84 100 Intake and Output 02/14/23 02/15/23 02/15/23 22:59 06:59 14:59 Intake Total 200 180 Balance 200 180 Intake: Oral 200 180 Other: Voiding Method External Catheter # Voids 2 Results CBC & Chem 7: 02/14/23 08:03 02/15/23 06:36 Labs: Abnormal Lab Results - Last 24 Hours (Table) 02/15/23 02/15/23 Range/Units 00:15 06:36 Glucose 129 H (70-110) mg/dL Calcium 10.5 H (8.7-10.3) mg/dL HDL Cholesterol 32.20 L (40.00-60.00) mg/dL Urine Glucose (UA) 4+ H (Negative) Assessment and Plan (1) Non-pressure chronic ulcer of other part of right lower leg with fat layer exposed Current Visit: Yes Status: Acute Code(s): L97.812 - NON-PRS CHRONIC ULCER OTH PRT R LOW LEG W FAT LAYER EXPOSED SNOMED Code(s): 90579839603269294 (2) Type 2 diabetes mellitus with other skin ulcer Current Visit: Yes Status: Acute Code(s): E11.622 - TYPE 2 DIABETES MELLITUS WITH OTHER SKIN ULCER; L98.499 - NON-PRESSURE CHRONIC ULCER OF SKIN OF SITES W UNSP SEVERITY SNOMED Code(s): 915465251 (3) Atrial fibrillation Current Visit: Yes Status: Acute Code(s): I48.91 - UNSPECIFIED ATRIAL FIBRILLATION SNOMED Code(s): 16518808
[2023-02-15] MEDS ORDERED: LACTULOSE 20 GM/30 ML CUP PO ONE (12:37)
--- NOTE | 2023-02-15 12:44 | P.DS ---
Providers Date of admission: 02/14/23 09:31 Attending physician: Fernando Kenny MD Consults: 02/14/23 09:31 Consult Physician Urgent Consulting Provider: [facility] Consult Reason/Comments: Chest pain Do you want consulting provider notified?: Yes 02/14/23 09:40 Consult Physician Stat Consulting Provider: Blaise Valiente Consult Reason/Comments: knee pain Do you want consulting provider notified?: Yes Primary care physician: Kye Mitchell [place] Hospital Course: Diagnoses: Chest pain, most likely musculoskeletal, resolved and patient did by debeader Mild acute on chronic diastolic CHF with a preserved ejection fraction, improved Persistent atrial fibrillation on anticoagulation, currently rate controlled Generalized abdominal pain with constipation, bowel obstruction ruled out with unremarkable CT of the abdomen and pelvis with oral contrast Right knee pain, status post right total knee arthroplasty 2 months ago Diabetes mellitus Hypertension COPD, though exacerbation Hyperlipidemia History of rheumatoid arthritis on methotrexate and azathioprine Hospital course: this is a pleasant 73 yo female with past medical history of diabetes mellitus, hypertension, persistent atrial fibrillation, diastolic CHF, COPD, hyperlipidemia, hypertension, h on anticoagulation with eliquis . History of rheumatoid arthritis on methotrexate. As per report patient had recent cardiac cath with no stent placement. Anxiety and depression, history of stroke with left hemiparesis, spinal stenosis,. Patient was in rehab for left total knee arthroplasty. Patient was sent from rehab today for chest pain which started yesterday, suture troponin were negative. Patient developed by debeader, chest pain improved and debeader has cleared the patient for discharge. Also patient complains from abdominal pain, periumbilical, mild, CT of the abdomen and pelvis is negative for acute process, patient is compared from constipation which is most likely cause, however patient was instructed to follow up with GI physician Dr. Banuelos in 2-3 weeks after discharge and she is agreeable. Orthopedic team also evaluated her, she has superficial wound in the right knee patient. To go to rehab, she was instructed to follow up with Dr. Valiente in 1 week after discharge and she is agreeable. Most likely patient constipated due to her [place] the firm increase her stool softener 1 tablet to 2 tablets at bedtime. The patient sitting up in bed looks pleasant comfortable talking to her family with no difficulty. No malaise. She is willing to go back to rehab. No other new complaints. She was cleared for discharge by all consultants including debeader, orthopedic team. Problems and management plan were discussed with the patient and he verbalized understanding and acceptance Patient was found stable and can be discharged home in guarded prognosis however he needs follow-up as an outpatient. Patient was instructed to follow up with PCP Dr. Mitchell within one week and patient agrees Patient was instructed to follow up with Dr. Reynolds debeader and Dr. Banuelos GI as above as well as Dr. Valiente from orthopedic team. Patient verbalized understanding and acceptance Physical exam Gen: patient is a AAOx3, no distress CVS: S1-S2, RRR, no murmur Lungs: B/L CTA, no wheezing Abdomen: soft, no distention, no tenderness, positive bowel sounds Extremity: no leg edema or induration. Superficial wound on the right knee with scar is healing Time spent more than 35 minutes Plan - Discharge Summary Discharge Rx Participant: No New Discharge Prescriptions: Continue Folic Acid 1 mg PO DAILY@1200 metHOTREXate sodium 20 mg PO MO Omeprazole 40 mg PO DAILY 30 Days #30 cap Nitroglycerin Sl Tabs [Nitrostat] 0.4 mg PO Q5M PRN PRN Reason: Chest Pain hydrALAZINE HCL [Apresoline] 50 mg PO BID Metoprolol Tartrate [Lopressor] 50 mg PO BID@0800,1700 Apixaban [Eliquis] 5 mg PO BID@0800,1700 traZODone HCL [Desyrel] 50 mg PO HS Docusate [Colace] 100 mg PO BID@0800,1700 Furosemide [Lasix] 20 mg PO DAILY Isosorbide Mononitrate ER [Imdur] 30 mg PO DAILY Ferrous Sulfate [Iron (65 MG Elemental)] 325 mg PO DAILY HYDROcodone/APAP 10-325MG [[place] 10-325] 1 tab PO Q6HR PRN 7 Days #32 tab PRN Reason: Pain bisacodyL [Dulcolax] 10 mg RECTAL DAILY PRN PRN Reason: Constipation Na Phos,M-B/Na Phos,Di-Ba [Fleet Adult] 133 ml RECTAL DAILY PRN PRN Reason: Constipation azaTHIOprine [Imuran] 50 mg PO TID@0600,1400,2200 INSULIN LISPRO (HumaLOG) [humaLOG] See Protocol SQ ACHS oxyCODONE ER [OxyCONTIN] 10 mg PO BID Lactulose 10 gm PO BID@0800,1700 Spironolactone 25 mg PO DAILY Semaglutide [Ozempic] 1 mg SQ WE Escitalopram Oxalate [Lexapro] 10 mg PO DAILY Empagliflozin [Jardiance] 10 mg PO DAILY@0600 Cholecalciferol [Vitamin D3 (25 Mcg = 1000 Iu)] 25 mcg PO DAILY polyethylene glycoL 3350 [Miralax] 17 gm PO DAILY PRN PRN Reason: Constipation Changed Sennosides-Docusate Sodium [Senokot-S] 2 tab PO HS #0 Discharge Medication List Folic Acid 1 mg PO DAILY@1200 09/07/22 [History] metHOTREXate sodium 20 mg PO MO 10/16/22 [History] HYDROcodone/APAP 10-325MG [[place] 10-325] 1 tab PO Q6HR PRN 7 Days #32 tab 12/10/22 [Rx] Omeprazole 40 mg PO DAILY 30 Days #30 cap 12/10/22 [Rx] Apixaban [Eliquis] 5 mg PO BID@0800,1700 02/14/23 [History] Cholecalciferol [Vitamin D3 (25 Mcg = 1000 Iu)] 25 mcg PO DAILY 02/14/23 [History] Docusate [Colace] 100 mg PO BID@0800,1700 02/14/23 [History] Empagliflozin [Jardiance] 10 mg PO DAILY@0600 02/14/23 [History] Escitalopram Oxalate [Lexapro] 10 mg PO DAILY 02/14/23 [History] Ferrous Sulfate [Iron (65 MG Elemental)] 325 mg PO DAILY 02/14/23 [History] Furosemide [Lasix] 20 mg PO DAILY 02/14/23 [History] INSULIN LISPRO (HumaLOG) [humaLOG] See Protocol SQ ACHS 02/14/23 [History] Isosorbide Mononitrate ER [Imdur] 30 mg PO DAILY 02/14/23 [History] Lactulose 10 gm PO BID@0800,1700 02/14/23 [History] Metoprolol Tartrate [Lopressor] 50 mg PO BID@0800,1700 02/14/23 [History] Na Phos,M-B/Na Phos,Di-Ba [Fleet Adult] 133 ml RECTAL DAILY PRN 02/14/23 [History] Nitroglycerin Sl Tabs [Nitrostat] 0.4 mg PO Q5M PRN 02/14/23 [History] Semaglutide [Ozempic] 1 mg SQ WE 02/14/23 [History] Spironolactone 25 mg PO DAILY 02/14/23 [History] azaTHIOprine [Imuran] 50 mg PO TID@0600,1400,2200 02/14/23 [History] bisacodyL [Dulcolax] 10 mg RECTAL DAILY PRN 02/14/23 [History] hydrALAZINE HCL [Apresoline] 50 mg PO BID 02/14/23 [History] oxyCODONE ER [OxyCONTIN] 10 mg PO BID 02/14/23 [History] polyethylene glycoL 3350 [Miralax] 17 gm PO DAILY PRN 02/14/23 [History] traZODone HCL [Desyrel] 50 mg PO HS 02/14/23 [History] Sennosides-Docusate Sodium [Senokot-S] 2 tab PO HS #0 02/15/23 [Rx] Follow up Appointment(s)/Referral(s): Sanam Reynolds MD [STAFF PHYSICIAN] - 1 Week Kye Mitchell DO [Primary Care Provider] - 1-2 days Blaise Valiente MD [Medical Doctor] - 1 Week Activity/Diet/Wound Care/Special Instructions: heat healthy diet activity is as tolerated Discharge Disposition: TRANSFER TO SNF/ECF
[2023-02-15] MEDS: traZODone HCL 50 MG TAB PO SCH (20:29)
[2023-02-16] MEDS: HYDROcodone/APAP 10-325MG 1 EACH TAB PO PRN ×3 (02:03→17:07)
[2023-02-16] MEDS: azaTHIOprine 50 MG TAB PO SCH ×3 (06:19→20:29)
[2023-02-16] MEDS: DAPAGLIFLOZIN PROPANEDIOL 5 MG TABLET PO SCH (06:19)
[2023-02-16] MEDS ORDERED: PROCHLORPERAZINE INJ 10 MG/2 ML VIAL IVP PRN (08:52)
[2023-02-16] MEDS: CHOLECALCIFEROL 25 MCG (1000 IU) TABLET PO SCH (09:21)
[2023-02-16] MEDS: ASPIRIN 325 MG TAB PO SCH (09:21)
[2023-02-16] MEDS: METOPROLOL TARTRATE 50 MG TAB PO SCH ×2 (09:21→17:07)
[2023-02-16] MEDS: DOCUSATE 100 MG CAP PO SCH ×2 (09:21→17:07)
[2023-02-16] MEDS: ESCITALOPRAM 10 MG TAB PO SCH (09:21)
[2023-02-16] MEDS: SPIRONOLACTONE 25 MG TAB PO SCH (09:21)
[2023-02-16] MEDS: PANTOPRAZOLE 40 MG TABLET PO SCH (09:21)
[2023-02-16] MEDS: APIXABAN 5 MG TAB PO SCH ×2 (09:21→17:07)
[2023-02-16] MEDS: hydrALAZINE HCL 50 MG TAB PO SCH ×2 (09:21→20:28)
[2023-02-16] MEDS: FUROSEMIDE 40 MG TAB PO SCH (09:21)
[2023-02-16] MEDS: ISOSORBIDE MONONITRATE ER 30 MG TAB.ER.24H PO SCH (09:21)
--- NOTE | 2023-02-16 11:53 | P.DS ---
Providers Date of admission: 02/14/23 09:31 Attending physician: Fernando Kenny MD Consults: 02/14/23 09:31 Consult Physician Urgent Consulting Provider: [facility] Consult Reason/Comments: Chest pain Do you want consulting provider notified?: Yes 02/14/23 09:40 Consult Physician Stat Consulting Provider: Blaise Valiente Consult Reason/Comments: knee pain Do you want consulting provider notified?: Yes Primary care physician: Kye StephenBryce Hospital Course: Diagnoses: Chest pain, most likely musculoskeletal, resolved and patient did by lockstitch machine operator Mild acute on chronic diastolic CHF with a preserved ejection fraction, improved Persistent atrial fibrillation on anticoagulation, currently rate controlled Generalized abdominal pain with constipation, bowel obstruction ruled out with unremarkable CT of the abdomen and pelvis with oral contrast. Patient may benefit from GI evaluation as an outpatient Right knee pain, status post right total knee arthroplasty 2 months ago. Follow-up with her orthopedic in 1 week after discharge Diabetes mellitus Hypertension COPD, though exacerbation Hyperlipidemia History of rheumatoid arthritis on methotrexate and azathioprine Hospital course: this is a pleasant 73 yo female with past medical history of diabetes mellitus, hypertension, persistent atrial fibrillation, diastolic CHF, COPD, hyperlipidemia, hypertension, h on anticoagulation with eliquis . History of rheumatoid arthritis on methotrexate. As per report patient had recent cardiac cath with no stent placement. Anxiety and depression, history of stroke with left hemiparesis, spinal stenosis,. Patient was in rehab for left total knee arthroplasty. Patient was sent from rehab today for chest pain which started yesterday, suture troponin were negative. chest pain improved and lockstitch machine operator has cleared the patient for discharge. Also patient complains from abdominal pain, periumbilical, mild, CT of the abdomen and pelvis is negative for acute process, patient is compared from constipation which is most likely cause, other possibilities cannot be entirely excluded for now. currently her abdominal pain resolved today, she was happy and smiling, she told me she tolerates food, her abdomen looks soft with no tenderness or rebound tenderness. Patient will be discharged on PPI Prilosec 40 mg daily. However patient was instructed to follow up with GI physician Dr. Banuelos in 2-3 weeks after discharge and she is agreeable. Orthopedic team also evaluated her, she has superficial wound in the right knee patient. To go to rehab, she was instructed to follow up with Dr. Valiente in 1 week after discharge and she is agreeable. Most likely patient constipated due to her [employer] the firm increase her stool softener 1 tablet to 2 tablets at bedtime. The patient sitting up in bed looks pleasant comfortable talking to her family with no difficulty. No malaise. She is willing to go back to rehab. No other new complaints. She was cleared for discharge by all consultants including lockstitch machine operator, orthopedic team. Problems and management plan were discussed with the patient and he verbalized understanding and acceptance Patient was found stable and can be discharged home in guarded prognosis however he needs follow-up as an outpatient. Patient was instructed to follow up with PCP Dr. Mitchell within one week and patient agrees Patient was instructed to follow up with Dr. Reynolds lockstitch machine operator and Dr. Banuelos GI as above as well as Dr. Valiente from orthopedic team. Patient verbalized understanding and acceptance Physical exam Gen: patient is a AAOx3, no distress CVS: S1-S2, RRR, no murmur Lungs: B/L CTA, no wheezing Abdomen: soft, no distention, no tenderness, positive bowel sounds Extremity: no leg edema or induration. Superficial wound on the right knee with scar is healing Time spent more than 35 minutes Plan - Discharge Summary Discharge Rx Participant: No New Discharge Prescriptions: New HYDROcodone/APAP 10-325MG [[place] 10-325] 1 tab PO Q6HR PRN #8 tab PRN Reason: Pain Continue Folic Acid 1 mg PO DAILY@1200 metHOTREXate sodium 20 mg PO MO Omeprazole 40 mg PO DAILY 30 Days #30 cap Nitroglycerin Sl Tabs [Nitrostat] 0.4 mg PO Q5M PRN PRN Reason: Chest Pain hydrALAZINE HCL [Apresoline] 50 mg PO BID Metoprolol Tartrate [Lopressor] 50 mg PO BID@0800,1700 Apixaban [Eliquis] 5 mg PO BID@0800,1700 traZODone HCL [Desyrel] 50 mg PO HS Docusate [Colace] 100 mg PO BID@0800,1700 Furosemide [Lasix] 20 mg PO DAILY Isosorbide Mononitrate ER [Imdur] 30 mg PO DAILY Ferrous Sulfate [Iron (65 MG Elemental)] 325 mg PO DAILY bisacodyL [Dulcolax] 10 mg RECTAL DAILY PRN PRN Reason: Constipation Na Phos,M-B/Na Phos,Di-Ba [Fleet Adult] 133 ml RECTAL DAILY PRN PRN Reason: Constipation azaTHIOprine [Imuran] 50 mg PO TID@0600,1400,2200 INSULIN LISPRO (HumaLOG) [humaLOG] See Protocol SQ ACHS oxyCODONE ER [OxyCONTIN] 10 mg PO BID Lactulose 10 gm PO BID@0800,1700 Spironolactone 25 mg PO DAILY Semaglutide [Ozempic] 1 mg SQ WE Escitalopram Oxalate [Lexapro] 10 mg PO DAILY Empagliflozin [Jardiance] 10 mg PO DAILY@0600 Cholecalciferol [Vitamin D3 (25 Mcg = 1000 Iu)] 25 mcg PO DAILY polyethylene glycoL 3350 [Miralax] 17 gm PO DAILY PRN PRN Reason: Constipation Changed Sennosides-Docusate Sodium [Senokot-S] 2 tab PO HS #0 Discontinued HYDROcodone/APAP 10-325MG [[place] 10-325] 1 tab PO Q6HR PRN 7 Days #32 tab PRN Reason: Pain Discharge Medication List Folic Acid 1 mg PO DAILY@1200 09/07/22 [History] metHOTREXate sodium 20 mg PO MO 10/16/22 [History] Omeprazole 40 mg PO DAILY 30 Days #30 cap 12/10/22 [Rx] Apixaban [Eliquis] 5 mg PO BID@0800,1700 02/14/23 [History] Cholecalciferol [Vitamin D3 (25 Mcg = 1000 Iu)] 25 mcg PO DAILY 02/14/23 [History] Docusate [Colace] 100 mg PO BID@0800,1700 02/14/23 [History] Empagliflozin [Jardiance] 10 mg PO DAILY@0600 02/14/23 [History] Escitalopram Oxalate [Lexapro] 10 mg PO DAILY 02/14/23 [History] Ferrous Sulfate [Iron (65 MG Elemental)] 325 mg PO DAILY 02/14/23 [History] Furosemide [Lasix] 20 mg PO DAILY 02/14/23 [History] INSULIN LISPRO (HumaLOG) [humaLOG] See Protocol SQ ACHS 02/14/23 [History] Isosorbide Mononitrate ER [Imdur] 30 mg PO DAILY 02/14/23 [History] Lactulose 10 gm PO BID@0800,1700 02/14/23 [History] Metoprolol Tartrate [Lopressor] 50 mg PO BID@0800,1700 02/14/23 [History] Na Phos,M-B/Na Phos,Di-Ba [Fleet Adult] 133 ml RECTAL DAILY PRN 02/14/23 [History] Nitroglycerin Sl Tabs [Nitrostat] 0.4 mg PO Q5M PRN 02/14/23 [History] Semaglutide [Ozempic] 1 mg SQ WE 02/14/23 [History] Spironolactone 25 mg PO DAILY 02/14/23 [History] azaTHIOprine [Imuran] 50 mg PO TID@0600,1400,2200 02/14/23 [History] bisacodyL [Dulcolax] 10 mg RECTAL DAILY PRN 02/14/23 [History] hydrALAZINE HCL [Apresoline] 50 mg PO BID 02/14/23 [History] oxyCODONE ER [OxyCONTIN] 10 mg PO BID 02/14/23 [History] polyethylene glycoL 3350 [Miralax] 17 gm PO DAILY PRN 02/14/23 [History] traZODone HCL [Desyrel] 50 mg PO HS 02/14/23 [History] HYDROcodone/APAP 10-325MG [[place] 10-325] 1 tab PO Q6HR PRN #8 tab 02/15/23 [Rx] Sennosides-Docusate Sodium [Senokot-S] 2 tab PO HS #0 02/15/23 [Rx] Follow up Appointment(s)/Referral(s): Sanam Reynolds MD [STAFF PHYSICIAN] - 1 Week (cardiology will call patient with appointment ) Hawa Banuelos MD [STAFF PHYSICIAN] - 1 Week (GI doctor for chronic abdominal pain) Kye Mitchell DO [Primary Care Provider] - 1-2 days Blaise Valiente MD [Medical Doctor] - 1 Week Activity/Diet/Wound Care/Special Instructions: heat healthy diet activity is as tolerated Discharge Disposition: TRANSFER TO SNF/ECF
[2023-02-16] MEDS: traZODone HCL 50 MG TAB PO SCH (20:28)
[2023-02-17] MEDS: HYDROcodone/APAP 10-325MG 1 EACH TAB PO PRN ×2 (00:45→20:25)
[2023-02-17] MEDS: azaTHIOprine 50 MG TAB PO SCH ×3 (06:19→20:22)
[2023-02-17] MEDS: DAPAGLIFLOZIN PROPANEDIOL 5 MG TABLET PO SCH (06:19)
[2023-02-17] MEDS: ASPIRIN 325 MG TAB PO SCH (09:50)
[2023-02-17] MEDS: DOCUSATE 100 MG CAP PO SCH ×2 (09:51→18:07)
[2023-02-17] MEDS: APIXABAN 5 MG TAB PO SCH ×2 (09:51→18:07)
[2023-02-17] MEDS: ESCITALOPRAM 10 MG TAB PO SCH (09:51)
[2023-02-17] MEDS: ISOSORBIDE MONONITRATE ER 30 MG TAB.ER.24H PO SCH (09:51)
[2023-02-17] MEDS: FUROSEMIDE 40 MG TAB PO SCH (09:51)
[2023-02-17] MEDS: PANTOPRAZOLE 40 MG TABLET PO SCH (09:51)
[2023-02-17] MEDS: hydrALAZINE HCL 50 MG TAB PO SCH ×2 (09:51→20:22)
[2023-02-17] MEDS: METOPROLOL TARTRATE 50 MG TAB PO SCH ×2 (09:51→18:08)
[2023-02-17] MEDS: CHOLECALCIFEROL 25 MCG (1000 IU) TABLET PO SCH (09:51)
[2023-02-17] MEDS: SPIRONOLACTONE 25 MG TAB PO SCH (09:51)
--- NOTE | 2023-02-17 10:36 | P.DS ---
Providers Date of admission: 02/14/23 09:31 Attending physician: Fernando Kenny MD Consults: 02/14/23 09:31 Consult Physician Urgent Consulting Provider: [facility] Consult Reason/Comments: Chest pain Do you want consulting provider notified?: Yes 02/14/23 09:40 Consult Physician Stat Consulting Provider: Blaise Valiente Consult Reason/Comments: knee pain Do you want consulting provider notified?: Yes Primary care physician: Kye StephenJohn Paul Jones Hospital Course: Diagnoses: Chest pain, most likely musculoskeletal, resolved and patient did by care tech Mild acute on chronic diastolic CHF with a preserved ejection fraction, improved Persistent atrial fibrillation on anticoagulation, currently rate controlled Generalized abdominal pain with constipation, bowel obstruction ruled out with unremarkable CT of the abdomen and pelvis with oral contrast. Patient may benefit from GI evaluation as an outpatient Right knee pain, status post right total knee arthroplasty 2 months ago. Follow-up with her orthopedic in 1 week after discharge Diabetes mellitus Hypertension COPD, though exacerbation Hyperlipidemia History of rheumatoid arthritis on methotrexate and azathioprine Hospital course: this is a pleasant 73 yo female with past medical history of diabetes mellitus, hypertension, persistent atrial fibrillation, diastolic CHF, COPD, hyperlipidemia, hypertension, h on anticoagulation with eliquis . History of rheumatoid arthritis on methotrexate. As per report patient had recent cardiac cath with no stent placement. Anxiety and depression, history of stroke with left hemiparesis, spinal stenosis,. Patient was in rehab for left total knee arthroplasty. Patient was sent from rehab today for chest pain which started yesterday, suture troponin were negative. chest pain improved and care tech has cleared the patient for discharge. Also patient complains from abdominal pain, periumbilical, mild, CT of the abdomen and pelvis is negative for acute process, patient is compared from constipation which is most likely cause, other possibilities cannot be entirely excluded for now. currently her abdominal pain resolved today, she was happy and smiling, she told me she tolerates food, her abdomen looks soft with no tenderness or rebound tenderness. Patient will be discharged on PPI Prilosec 40 mg daily. However patient was instructed to follow up with GI physician Dr. Banuelos in 2-3 weeks after discharge and she is agreeable. Orthopedic team also evaluated her, she has superficial wound in the right knee patient. To go to rehab, she was instructed to follow up with Dr. Valiente in 1 week after discharge and she is agreeable. Most likely patient constipated due to her [employer] the firm increase her stool softener 1 tablet to 2 tablets at bedtime. The patient sitting up in bed looks pleasant comfortable talking to her family with no difficulty. No malaise. She is willing to go back to rehab. today 02/17 she keeps doing well with no other new complaints. She was cleared for discharge by all consultants including care tech, orthopedic team. Problems and management plan were discussed with the patient and he verbalized understanding and acceptance Patient was found stable and can be discharged to her snf in guarded prognosis however he needs follow-up as an outpatient. Patient was instructed to follow up with PCP Dr. Mitchell within one week and patient agrees Patient was instructed to follow up with Dr. Reynolds care tech and Dr. Banuelos GI as above as well as Dr. Valiente from orthopedic team. Patient verbalized understanding and acceptance Physical exam Gen: patient is a AAOx3, no distress CVS: S1-S2, RRR, no murmur Lungs: B/L CTA, no wheezing Abdomen: soft, no distention, no tenderness, positive bowel sounds Extremity: no leg edema or induration. Superficial wound on the right knee with scar is healing Time spent more than 35 minutes Plan - Discharge Summary Discharge Rx Participant: No New Discharge Prescriptions: New HYDROcodone/APAP 10-325MG [[place] 10-325] 1 tab PO Q6HR PRN #8 tab PRN Reason: Pain Continue Folic Acid 1 mg PO DAILY@1200 metHOTREXate sodium 20 mg PO MO Omeprazole 40 mg PO DAILY 30 Days #30 cap Nitroglycerin Sl Tabs [Nitrostat] 0.4 mg PO Q5M PRN PRN Reason: Chest Pain hydrALAZINE HCL [Apresoline] 50 mg PO BID Metoprolol Tartrate [Lopressor] 50 mg PO BID@0800,1700 Apixaban [Eliquis] 5 mg PO BID@0800,1700 traZODone HCL [Desyrel] 50 mg PO HS Docusate [Colace] 100 mg PO BID@0800,1700 Furosemide [Lasix] 20 mg PO DAILY Isosorbide Mononitrate ER [Imdur] 30 mg PO DAILY Ferrous Sulfate [Iron (65 MG Elemental)] 325 mg PO DAILY bisacodyL [Dulcolax] 10 mg RECTAL DAILY PRN PRN Reason: Constipation Na Phos,M-B/Na Phos,Di-Ba [Fleet Adult] 133 ml RECTAL DAILY PRN PRN Reason: Constipation azaTHIOprine [Imuran] 50 mg PO TID@0600,1400,2200 INSULIN LISPRO (HumaLOG) [humaLOG] See Protocol SQ ACHS oxyCODONE ER [OxyCONTIN] 10 mg PO BID Lactulose 10 gm PO BID@0800,1700 Spironolactone 25 mg PO DAILY Semaglutide [Ozempic] 1 mg SQ WE Escitalopram Oxalate [Lexapro] 10 mg PO DAILY Empagliflozin [Jardiance] 10 mg PO DAILY@0600 Cholecalciferol [Vitamin D3 (25 Mcg = 1000 Iu)] 25 mcg PO DAILY polyethylene glycoL 3350 [Miralax] 17 gm PO DAILY PRN PRN Reason: Constipation Changed Sennosides-Docusate Sodium [Senokot-S] 2 tab PO HS #0 Discontinued HYDROcodone/APAP 10-325MG [[place] 10-325] 1 tab PO Q6HR PRN 7 Days #32 tab PRN Reason: Pain Discharge Medication List Folic Acid 1 mg PO DAILY@1200 09/07/22 [History] metHOTREXate sodium 20 mg PO MO 10/16/22 [History] Omeprazole 40 mg PO DAILY 30 Days #30 cap 12/10/22 [Rx] Apixaban [Eliquis] 5 mg PO BID@0800,1700 02/14/23 [History] Cholecalciferol [Vitamin D3 (25 Mcg = 1000 Iu)] 25 mcg PO DAILY 02/14/23 [History] Docusate [Colace] 100 mg PO BID@0800,1700 02/14/23 [History] Empagliflozin [Jardiance] 10 mg PO DAILY@0600 02/14/23 [History] Escitalopram Oxalate [Lexapro] 10 mg PO DAILY 02/14/23 [History] Ferrous Sulfate [Iron (65 MG Elemental)] 325 mg PO DAILY 02/14/23 [History] Furosemide [Lasix] 20 mg PO DAILY 02/14/23 [History] INSULIN LISPRO (HumaLOG) [humaLOG] See Protocol SQ ACHS 02/14/23 [History] Isosorbide Mononitrate ER [Imdur] 30 mg PO DAILY 02/14/23 [History] Lactulose 10 gm PO BID@0800,1700 02/14/23 [History] Metoprolol Tartrate [Lopressor] 50 mg PO BID@0800,1700 02/14/23 [History] Na Phos,M-B/Na Phos,Di-Ba [Fleet Adult] 133 ml RECTAL DAILY PRN 02/14/23 [History] Nitroglycerin Sl Tabs [Nitrostat] 0.4 mg PO Q5M PRN 02/14/23 [History] Semaglutide [Ozempic] 1 mg SQ WE 02/14/23 [History] Spironolactone 25 mg PO DAILY 02/14/23 [History] azaTHIOprine [Imuran] 50 mg PO TID@0600,1400,2200 02/14/23 [History] bisacodyL [Dulcolax] 10 mg RECTAL DAILY PRN 02/14/23 [History] hydrALAZINE HCL [Apresoline] 50 mg PO BID 02/14/23 [History] oxyCODONE ER [OxyCONTIN] 10 mg PO BID 02/14/23 [History] polyethylene glycoL 3350 [Miralax] 17 gm PO DAILY PRN 02/14/23 [History] traZODone HCL [Desyrel] 50 mg PO HS 02/14/23 [History] HYDROcodone/APAP 10-325MG [[place] 10-325] 1 tab PO Q6HR PRN #8 tab 02/15/23 [Rx] Sennosides-Docusate Sodium [Senokot-S] 2 tab PO HS #0 02/15/23 [Rx] Follow up Appointment(s)/Referral(s): Sanam Reynolds MD [STAFF PHYSICIAN] - 1 Week (cardiology will call patient with appointment ) Hawa Banuelos MD [STAFF PHYSICIAN] - 1 Week (GI doctor for chronic abdominal pain) Kye Mitchell DO [Primary Care Provider] - 1-2 days Blaise Valiente MD [Medical Doctor] - 1 Week Activity/Diet/Wound Care/Special Instructions: heat healthy diet activity is as tolerated Discharge Disposition: TRANSFER TO SNF/ECF
[2023-02-17] MEDS: traZODone HCL 50 MG TAB PO SCH (20:22)
[2023-02-18] MEDS: DAPAGLIFLOZIN PROPANEDIOL 5 MG TABLET PO SCH (05:07)
[2023-02-18] MEDS: HYDROcodone/APAP 10-325MG 1 EACH TAB PO PRN (05:07)
[2023-02-18] MEDS: azaTHIOprine 50 MG TAB PO SCH ×2 (05:08→14:48)
[2023-02-18] MEDS: ISOSORBIDE MONONITRATE ER 30 MG TAB.ER.24H PO SCH (08:14)
[2023-02-18] MEDS: FUROSEMIDE 40 MG TAB PO SCH (08:14)
[2023-02-18] MEDS: PANTOPRAZOLE 40 MG TABLET PO SCH (08:14)
[2023-02-18] MEDS: APIXABAN 5 MG TAB PO SCH (08:14)
[2023-02-18] MEDS: SPIRONOLACTONE 25 MG TAB PO SCH (08:14)
[2023-02-18] MEDS: CHOLECALCIFEROL 25 MCG (1000 IU) TABLET PO SCH (08:14)
[2023-02-18] MEDS: DOCUSATE 100 MG CAP PO SCH (08:14)
[2023-02-18] MEDS: METOPROLOL TARTRATE 50 MG TAB PO SCH (08:14)
[2023-02-18] MEDS: hydrALAZINE HCL 50 MG TAB PO SCH (08:15)
[2023-02-18] MEDS: ESCITALOPRAM 10 MG TAB PO SCH (08:15)
[2023-02-18] MEDS: ASPIRIN 325 MG TAB PO SCH (08:15)
[2023-02-18 08:43] VITALS: BP 151/91; PULSE 73; RESP 20; TEMP 97.6
--- NOTE | 2023-02-18 13:51 | P.DS ---
Providers Date of admission: 02/14/23 09:31 Attending physician: Fernando Kenny MD Consults: 02/14/23 09:31 Consult Physician Urgent Consulting Provider: [facility] Consult Reason/Comments: Chest pain Do you want consulting provider notified?: Yes 02/14/23 09:40 Consult Physician Stat Consulting Provider: Blaise Valiente Consult Reason/Comments: knee pain Do you want consulting provider notified?: Yes [facility]: Diagnoses: Chest pain, most likely musculoskeletal, resolved and patient did by [facility] Mild acute on chronic diastolic CHF with a preserved ejection fraction, improved Persistent atrial fibrillation on anticoagulation, currently rate controlled Generalized abdominal pain with constipation, bowel obstruction ruled out with unremarkable CT of the abdomen and pelvis with oral contrast. Patient may benefit from GI evaluation as an outpatient Right knee pain, status post right total knee arthroplasty 2 months ago. Follow-up with her orthopedic in 1 week after discharge Diabetes mellitus Hypertension COPD, though exacerbation Hyperlipidemia History of rheumatoid arthritis on methotrexate and azathioprine Hospital course: this is a pleasant 73 yo female with past medical history of diabetes mellitus, hypertension, persistent atrial fibrillation, diastolic CHF, COPD, hyperlipidemia, hypertension, h on anticoagulation with eliquis . History of rheumatoid arthritis on methotrexate. As per report patient had recent cardiac cath with no stent placement. Anxiety and depression, history of stroke with left hemiparesis, spinal stenosis,. Patient was in rehab for left total knee arthroplasty. Patient was sent from rehab today for chest pain which started yesterday, suture troponin were negative. chest pain improved and [facility] has cleared the patient for discharge. Also patient complains from abdominal pain, periumbilical, mild, CT of the abdomen and pelvis is negative for acute process, patient is compared from constipation which is most likely cause, other possibilities cannot be entirely excluded for now. currently her abdominal pain resolved today, she was happy and smiling, she told me she tolerates food, her abdomen looks soft with no tenderness or rebound tenderness. Patient will be discharged on PPI Prilosec 40 mg daily. However patient was instructed to follow up with GI physician Dr. Banuelos in 2-3 weeks after discharge and she is agreeable. Orthopedic team also evaluated her, she has superficial wound in the right knee patient. To go to rehab, she was instructed to follow up with Dr. Valiente in 1 week after discharge and she is agreeable. Most likely patient constipated due to her Winston the firm increase her stool softener 1 tablet to 2 tablets at bedtime. The patient sitting up in bed looks pleasant comfortable talking to her family with no difficulty. No malaise. She is willing to go back to rehab. today 02/17 she keeps doing well with no other new complaints. She was cleared for discharge by all consultants including [employer], orthopedic team. Problems and management plan were discussed with the patient and he verbalized understanding and acceptance Patient was found stable and can be discharged to her correction in guarded prognosis however he needs follow-up as an outpatient. Patient was instructed to follow up with PCP Dr. Mitchell within one week and patient agrees Patient was instructed to follow up with Dr. Reynolds boner [facility] and Dr. Banuelos GI as above as well as Dr. Valiente from orthopedic team. Patient verbalized understanding and acceptance Physical exam Gen: patient is a AAOx3, no distress CVS: S1-S2, RRR, no murmur Lungs: B/L CTA, no wheezing Abdomen: soft, no distention, no tenderness, positive bowel sounds Extremity: no leg edema or induration. Superficial wound on the right knee with scar is healing Time spent more than 35 minutes Plan - Discharge Summary Discharge Rx Participant: No New Discharge Prescriptions: New HYDROcodone/APAP 10-325MG [Winston 10-325] 1 tab PO Q6HR PRN #8 tab PRN Reason: Pain Continue Folic Acid 1 mg PO DAILY@1200 metHOTREXate sodium 20 mg PO MO Omeprazole 40 mg PO DAILY 30 Days #30 cap Nitroglycerin Sl Tabs [Nitrostat] 0.4 mg PO Q5M PRN PRN Reason: Chest Pain hydrALAZINE HCL [Apresoline] 50 mg PO BID Metoprolol Tartrate [Lopressor] 50 mg PO BID@0800,1700 Apixaban [Eliquis] 5 mg PO BID@0800,1700 traZODone HCL [Desyrel] 50 mg PO HS Docusate [Colace] 100 mg PO BID@0800,1700 Furosemide [Lasix] 20 mg PO DAILY Isosorbide Mononitrate ER [Imdur] 30 mg PO DAILY Ferrous Sulfate [Iron (65 MG Elemental)] 325 mg PO DAILY bisacodyL [Dulcolax] 10 mg RECTAL DAILY PRN PRN Reason: Constipation Na Phos,M-B/Na Phos,Di-Ba [Fleet Adult] 133 ml RECTAL DAILY PRN PRN Reason: Constipation azaTHIOprine [Imuran] 50 mg PO TID@0600,1400,2200 INSULIN LISPRO (HumaLOG) [humaLOG] See Protocol SQ ACHS oxyCODONE ER [OxyCONTIN] 10 mg PO BID Lactulose 10 gm PO BID@0800,1700 Spironolactone 25 mg PO DAILY Semaglutide [Ozempic] 1 mg SQ WE Escitalopram Oxalate [Lexapro] 10 mg PO DAILY Empagliflozin [Jardiance] 10 mg PO DAILY@0600 Cholecalciferol [Vitamin D3 (25 Mcg = 1000 Iu)] 25 mcg PO DAILY polyethylene glycoL 3350 [Miralax] 17 gm PO DAILY PRN PRN Reason: Constipation Changed Sennosides-Docusate Sodium [Senokot-S] 2 tab PO HS #0 Discontinued HYDROcodone/APAP 10-325MG [Winston 10-325] 1 tab PO Q6HR PRN 7 Days #32 tab PRN Reason: Pain Discharge Medication List Folic Acid 1 mg PO DAILY@1200 09/07/22 [History] metHOTREXate sodium 20 mg PO MO 10/16/22 [History] Omeprazole 40 mg PO DAILY 30 Days #30 cap 12/10/22 [Rx] Apixaban [Eliquis] 5 mg PO BID@0800,1700 02/14/23 [History] Cholecalciferol [Vitamin D3 (25 Mcg = 1000 Iu)] 25 mcg PO DAILY 02/14/23 [History] Docusate [Colace] 100 mg PO BID@0800,1700 02/14/23 [History] Empagliflozin [Jardiance] 10 mg PO DAILY@0600 02/14/23 [History] Escitalopram Oxalate [Lexapro] 10 mg PO DAILY 02/14/23 [History] Ferrous Sulfate [Iron (65 MG Elemental)] 325 mg PO DAILY 02/14/23 [History] Furosemide [Lasix] 20 mg PO DAILY 02/14/23 [History] INSULIN LISPRO (HumaLOG) [humaLOG] See Protocol SQ ACHS 02/14/23 [History] Isosorbide Mononitrate ER [Imdur] 30 mg PO DAILY 02/14/23 [History] Lactulose 10 gm PO BID@0800,1700 02/14/23 [History] Metoprolol Tartrate [Lopressor] 50 mg PO BID@0800,1700 02/14/23 [History] Na Phos,M-B/Na Phos,Di-Ba [Fleet Adult] 133 ml RECTAL DAILY PRN 02/14/23 [History] Nitroglycerin Sl Tabs [Nitrostat] 0.4 mg PO Q5M PRN 02/14/23 [History] Semaglutide [Ozempic] 1 mg SQ WE 02/14/23 [History] Spironolactone 25 mg PO DAILY 02/14/23 [History] azaTHIOprine [Imuran] 50 mg PO TID@0600,1400,2200 02/14/23 [History] bisacodyL [Dulcolax] 10 mg RECTAL DAILY PRN 02/14/23 [History] hydrALAZINE HCL [Apresoline] 50 mg PO BID 02/14/23 [History] oxyCODONE ER [OxyCONTIN] 10 mg PO BID 02/14/23 [History] polyethylene glycoL 3350 [Miralax] 17 gm PO DAILY PRN 02/14/23 [History] traZODone HCL [Desyrel] 50 mg PO HS 02/14/23 [History] HYDROcodone/APAP 10-325MG [Winston 10-325] 1 tab PO Q6HR PRN #8 tab 02/15/23 [Rx] Sennosides-Docusate Sodium [Senokot-S] 2 tab PO HS #0 02/15/23 [Rx] Follow up Appointment(s)/Referral(s): Sanam Reynolds MD [STAFF PHYSICIAN] - 1 Week (cardiology will call patient with appointment ) Hawa Banuelos MD [STAFF PHYSICIAN] - 1 Week (GI doctor for chronic abdominal pain) Kye Mitchell DO [Primary Care Provider] - 1-2 days Blaise Valiente MD [Medical Doctor] - 1 Week Activity/Diet/Wound Care/Special Instructions: heat healthy diet activity is as tolerated Discharge Disposition: TRANSFER TO SNF/ECF
[2023-02-21] MEDS ORDERED: metHOTREXate sodium 2.5 MG TAB PO SCH (09:00)
== END 2023-02-18 14:48 ==
LOC: EC 07:37 → 6NMEDSUR 09:31 → INTOOBSV 09:31 → 6NMEDSUR 09:51
PROVIDERS: ADMIT Internal Medicine; ATTEND Internal Medicine
DX: R07.89 Other chest pain (principal); M25.562 Pain in left knee; I25.10 Atherosclerotic heart disease of native coronary artery without angina pectoris; I48.21 Permanent atrial fibrillation; R10.84 Generalized abdominal pain; K59.00 Constipation, unspecified; I11.0 Hypertensive heart disease with heart failure; I50.33 Acute on chronic diastolic (congestive) heart failure; E11.622 Type 2 diabetes mellitus with other skin ulcer; L97.812 Non-pressure chronic ulcer of other part of right lower leg with fat layer exposed; F32.A Depression, unspecified; F41.9 Anxiety disorder, unspecified; I27.20 Pulmonary hypertension, unspecified; J44.9 Chronic obstructive pulmonary disease, unspecified; E78.5 Hyperlipidemia, unspecified; M06.9 Rheumatoid arthritis, unspecified; I69.354 Hemiplegia and hemiparesis following cerebral infarction affecting left non-dominant side; Z79.631 Long term (current) use of antimetabolite agent; Z87.891 Personal history of nicotine dependence; Z79.01 Long term (current) use of anticoagulants; Z79.84 Long term (current) use of oral hypoglycemic drugs; Z79.4 Long term (current) use of insulin; Z79.85 Long-term (current) use of injectable non-insulin antidiabetic drugs; Z79.899 Other long term (current) drug therapy
CPT/HCPCS: 96374; 99285; 36415; 93005; 97530 ×2; 97162 ×2; 97166; 83880; 80061; 80053; 80048; 83735; 84484; 85025; 85610; 85730; 81003; 71046; 74176; G0378 ×5; J7500 ×5; J0780

== ENCOUNTER 2023-04-04 22:01 | Inpatient (IN) | payer MEDICARE, OTHER ==
[2023-04-04] MEDS ORDERED: HYDROmorphone 0.5 MG/0.5 ML SYRINGE IVP STA (22:07)
--- NOTE | 2023-04-04 22:19 | ED ---
General Adult HPI - General Chief complaint: Abdominal Pain Stated complaint: Abd pain Time Seen by Provider: 04/04/23 22:03 Source: patient, EMS, RN notes reviewed, old records reviewed Mode of arrival: EMS Limitations: no limitations - History of Present Illness Initial comments: 73-year-old female presenting for evaluation of right-sided abdominal pain. Pain is been present for the past 3 days. Patient has had hematuria and was diagnosed with urinary tract infection which she was started on antibiotics. She denies fever. She's had nausea without vomiting. She reports normal bowel movements. - Related Data Home Medications Medication Instructions Recorded Confirmed Folic Acid 1 mg PO DAILY@1200 09/07/22 02/14/23 metHOTREXate sodium [Methotrexate] 20 mg PO MO 10/16/22 02/14/23 Apixaban [Eliquis] 5 mg PO BID@0800,1700 02/14/23 02/14/23 Cholecalciferol [Vitamin D3 (25 25 mcg PO DAILY 02/14/23 02/14/23 Mcg = 1000 Iu)] Docusate [Colace] 100 mg PO BID@0800,1700 02/14/23 02/14/23 Empagliflozin [Jardiance] 10 mg PO DAILY@0600 02/14/23 02/14/23 Escitalopram Oxalate [Lexapro] 10 mg PO DAILY 02/14/23 02/14/23 Ferrous Sulfate [Iron (65 MG 325 mg PO DAILY 02/14/23 02/14/23 Elemental)] Furosemide [Lasix] 20 mg PO DAILY 02/14/23 02/14/23 INSULIN LISPRO (HumaLOG) [humaLOG] See Protocol SQ ACHS 02/14/23 02/14/23 Isosorbide Mononitrate ER [Imdur] 30 mg PO DAILY 02/14/23 02/14/23 Lactulose 10 gm PO BID@0800,1700 02/14/23 02/14/23 Metoprolol Tartrate [Lopressor] 50 mg PO BID@0800,1700 02/14/23 02/14/23 Na Phos,M-B/Na Phos,Di-Ba [Fleet 133 ml RECTAL DAILY PRN 02/14/23 02/14/23 Adult] Nitroglycerin Sl Tabs [Nitrostat] 0.4 mg PO Q5M PRN 02/14/23 02/14/23 Semaglutide [Ozempic] 1 mg SQ WE 02/14/23 02/14/23 Spironolactone 25 mg PO DAILY 02/14/23 02/14/23 azaTHIOprine [Imuran] 50 mg PO TID@0600,1400,2200 02/14/23 02/14/23 bisacodyL [Dulcolax] 10 mg RECTAL DAILY PRN 02/14/23 02/14/23 hydrALAZINE HCL [Apresoline] 50 mg PO BID 02/14/23 02/14/23 oxyCODONE ER [OxyCONTIN] 10 mg PO BID 02/14/23 02/14/23 polyethylene glycoL 3350 [Miralax] 17 gm PO DAILY PRN 02/14/23 02/14/23 traZODone HCL [Desyrel] 50 mg PO HS 02/14/23 02/14/23 Previous Rx's Medication Instructions Recorded Omeprazole 40 mg PO DAILY 30 Days #30 cap 12/10/22 Sennosides-Docusate Sodium 2 tab PO HS #0 02/15/23 [Senokot-S] HYDROcodone/APAP 10-325MG [Alder 1 tab PO Q6HR PRN #6 tab 02/18/23 10-325] Allergies Allergy/AdvReac Type Severity Reaction Status Date / Time No Known Allergies Allergy Verified 04/04/23 22:07 Review of Systems ROS Statement: Those systems with pertinent positive or pertinent negative responses have been documented in the HPI. ROS Other: All systems not noted in ROS Statement are negative. 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 Spinal stenosis. Poss thyroid issue. Varicose veins,. CHF History of Any Multi-Drug Resistant Organisms: None Reported Past Surgical History: Cholecystectomy, Heart Catheterization, Hernia Repair, Orthopedic Surgery Additional Past Surgical History / Comment(s): removed bone in left foot, Umbilical hernia, CARDIOVERSION, total right knee replacement Past Anesthesia/Blood Transfusion Reactions: No Reported Reaction Past Psychological History: Anxiety, Depression Smoking Status: Former smoker Past Alcohol Use History: None Reported Past Drug Use History: None Reported - Past Family History Father History Unknown: Yes Sister(s) Family Medical History: Cancer Additional Family Medical History / Comment(s): breast cancer Mother Family Medical History: Deep Vein Thrombosis (DVT) General Exam Limitations: no limitations General appearance: alert, in no apparent distress Head exam: Present: atraumatic, normocephalic Eye exam: Present: normal appearance, PERRL ENT exam: Present: normal exam Neck exam: Present: normal inspection. Absent: tenderness, meningismus Respiratory exam: Present: normal lung sounds bilaterally. Absent: respiratory distress, wheezes Cardiovascular Exam: Present: regular rate, normal rhythm GI/Abdominal exam: Present: soft, distended, tenderness. Absent: guarding Extremities exam: Present: normal inspection, normal capillary refill Neurological exam: Present: alert, oriented X3, CN II-XII intact. Absent: motor sensory deficit Psychiatric exam: Present: normal affect, normal mood Skin exam: Present: warm, dry, intact. Absent: cyanosis, diaphoretic Course Vital Signs 04/04/23 04/05/23 04/05/23 22:03 00:23 01:29 Temperature 98.8 F 98.9 F Pulse Rate 94 92 89 Respiratory 22 18 18 Rate Blood Pressure 138/97 139/74 111/74 O2 Sat by Pulse 96 97 96 Oximetry Medical Decision Making - Medical Decision Making Was pt. sent in by a medical professional or institution (, PA, ENERGY ANALYST, urgent care, hospital, or halfway...) When possible be specific @ -No Did you speak to anyone other than the patient for history (EMS, parent, family, police, friend...)? What history was obtained from this source @ -No Did you review nursing and triage notes (agree or disagree)? Why? @ -I reviewed and agree with nursing and triage notes Were old charts reviewed (outside hosp., previous admission, EMS record, old EKG, old radiological studies, urgent care reports/EKG's, halfway records)? Report findings @ -No old charts were reviewed Differential Diagnosis (chest pain, altered mental status, abdominal pain women, abdominal pain men, vaginal bleeding, weakness, fever, dyspnea, syncope, headache, dizziness, GI bleed, back pain, seizure, CVA, palpatations, mental health, musculoskeletal)? @ -not applicable EKG interpreted by me (3pts min.). @ -As above X-rays interpreted by me (1pt min.). @ -None done CT interpreted by me (1pt min.). @ -None done U/S interpreted by me (1pt. min.). @ -None done What testing was considered but not performed or refused? (CT, X-rays, U/S, labs)? Why? @ -None What meds were considered but not given or refused? Why? @ -None Did you discuss the management of the patient with other professionals (professionals i.e. Dr., PA, ENERGY ANALYST, lab, RT, psych nurse, social sciences instructor, marketing assistant, teacher, environmental technical officer, casework specialist)? Give summary @ -[EMH Was smoking cessation discussed for >3mins.? @ -No Was critical care preformed (if so, how long)? @ -No Were there social determinants of health that impacted care today? How? (Homelessness, low income, unemployed, alcoholism, drug addiction, transportation, low edu. Level, literacy, decrease access to med. care, correction, rehab)? @ -No Was there de-escalation of care discussed even if they declined (Discuss DNR or withdrawal of care, Hospice)? DNR status @ -No What co-morbidities impacted this encounter? (DM, HTN, Smoking, COPD, CAD, Cancer, CVA, ARF, Chemo, Hep., AIDS, mental health diagnosis, sleep apnea, morbid obesity)? @ -None Was patient admitted / discharged? Hospital course, mention meds given and route, prescriptions, significant lab abnormalities, going to OR and other pertinent info. @ -73-year-old female with lower abdominal pain, nausea, and diagnosis of UTI which was made today. Patient afebrile with stable vitals. She has diffuse lower abdominal pain. She has normal white blood cell count, tube chronic anemia, normal lactic acid, mild elevation in creatinine. Patient has significant urinary tract infection. Will be admitted for IV hydration and IV antibiotics. Undiagnosed new problem with uncertain prognosis? @ -No Drug Therapy requiring intensive monitoring for toxicity (Heparin, Nitro, Insulin, Cardizem)? @ -No Were any procedures done? @ -No Diagnosis/symptom? @ -UTI, abdominal pain Acute, or Chronic, or Acute on Chronic? @ -Acute Uncomplicated (without systemic symptoms) or Complicated (systemic symptoms)? @ -default Side effects of treatment? @ -No Exacerbation, Progression, or Severe Exacerbation? @ -No Poses a threat to life or bodily function? How? (Chest pain, [place], HI, pneumonia, PE, COPD, DKA, ARF, appy, cholecystitis, CVA, Diverticulitis, Homicidal, Suicidal, threat to staff... and all critical care pts) @Yes, sepsis - Lab Data Result diagrams: 04/04/23 22:10 04/04/23 22:10 Lab Results 04/04/23 04/04/23 04/04/23 Range/Units 22:10 22:10 22:10 WBC 9.7 (3.8-10.6) k/uL RBC 3.51 L (3.80-5.40) m/uL Hgb 10.8 L (11.4-16.0) gm/dL Hct 33.6 L (34.0-46.0) % MCV 95.8 (80.0-100.0) fL MCH 30.6 (25.0-35.0) pg MCHC 32.0 (31.0-37.0) g/dL RDW 17.8 H (11.5-15.5) % Plt Count 248 (150-450) k/uL MPV 7.5 Neutrophils % 84 % Lymphocytes % 7 % Monocytes % 7 % Eosinophils % 1 % Basophils % 0 % Neutrophils # 8.1 H (1.3-7.7) k/uL Lymphocytes # 0.7 L (1.0-4.8) k/uL Monocytes # 0.6 (0-1.0) k/uL Eosinophils # 0.1 (0-0.7) k/uL Basophils # 0.0 (0-0.2) k/uL Hypochromasia Slight Anisocytosis Slight Macrocytosis Slight PT 12.0 (10.0-12.5) sec INR 1.1 (<1.2) APTT 32.2 H (22.0-30.0) sec Sodium 139 (137-145) mmol/L Potassium 3.7 (3.5-5.1) mmol/L Chloride 103 (98-107) mmol/L Carbon Dioxide 23 (22-30) mmol/L Anion Gap 13 mmol/L BUN 20 H (7-17) mg/dL Creatinine 1.23 H (0.52-1.04) mg/dL Est GFR (CKD-EPI)AfAm 51 (>60 ml/min/1.73 sqM) Est GFR (CKD-EPI)NonAf 44 (>60 ml/min/1.73 sqM) Glucose 140 H (74-99) mg/dL Plasma Lactic Acid Philip (0.7-2.0) mmol/L Calcium 9.8 (8.4-10.2) mg/dL Total Bilirubin 1.2 (0.2-1.3) mg/dL AST 16 (14-36) U/L ALT 8 (4-34) U/L Alkaline Phosphatase 92 (38-126) U/L Total Protein 6.2 L (6.3-8.2) g/dL Albumin 3.6 (3.5-5.0) g/dL Amylase 47 (30-110) U/L Lipase 15 L (23-300) U/L Urine Color Urine Appearance (Clear) Urine pH (5.0-8.0) Ur Specific [employer] (1.001-1.035) Urine Protein (Negative) Urine Glucose (UA) (Negative) Urine Ketones (Negative) Urine Blood (Negative) Urine Nitrite (Negative) Urine Bilirubin (Negative) Urine Urobilinogen (<2.0) mg/dL Ur Leukocyte Esterase (Negative) Urine RBC (0-5) /hpf Urine WBC (0-5) /hpf Ur Squamous Epith Cells (0-4) /hpf Urine Bacteria (None) /hpf Hyaline Casts (0-2) /lpf Urine Mucus (None) /hpf 04/04/23 04/05/23 Range/Units 22:10 00:48 WBC (3.8-10.6) k/uL RBC (3.80-5.40) m/uL Hgb (11.4-16.0) gm/dL Hct (34.0-46.0) % MCV (80.0-100.0) fL MCH (25.0-35.0) pg MCHC (31.0-37.0) g/dL RDW (11.5-15.5) % Plt Count (150-450) k/uL MPV Neutrophils % % Lymphocytes % % Monocytes % % Eosinophils % % Basophils % % Neutrophils # (1.3-7.7) k/uL Lymphocytes # (1.0-4.8) k/uL Monocytes # (0-1.0) k/uL Eosinophils # (0-0.7) k/uL Basophils # (0-0.2) k/uL Hypochromasia Anisocytosis Macrocytosis PT (10.0-12.5) sec INR (<1.2) APTT (22.0-30.0) sec Sodium (137-145) mmol/L Potassium (3.5-5.1) mmol/L Chloride (98-107) mmol/L Carbon Dioxide (22-30) mmol/L Anion Gap mmol/L BUN (7-17) mg/dL Creatinine (0.52-1.04) mg/dL Est GFR (CKD-EPI)AfAm (>60 ml/min/1.73 sqM) Est GFR (CKD-EPI)NonAf (>60 ml/min/1.73 sqM) Glucose (74-99) mg/dL Plasma Lactic Acid Philip 1.0 (0.7-2.0) mmol/L Calcium (8.4-10.2) mg/dL Total Bilirubin (0.2-1.3) mg/dL AST (14-36) U/L ALT (4-34) U/L Alkaline Phosphatase (38-126) U/L Total Protein (6.3-8.2) g/dL Albumin (3.5-5.0) g/dL Amylase (30-110) U/L Lipase (23-300) U/L Urine Color Light [place] Urine Appearance Turbid H (Clear) Urine pH 6.0 (5.0-8.0) Ur Specific [employer] 1.017 (1.001-1.035) Urine Protein 2+ H (Negative) Urine Glucose (UA) 4+ H (Negative) Urine Ketones Negative (Negative) Urine Blood Large H (Negative) Urine Nitrite Negative (Negative) Urine Bilirubin Negative (Negative) Urine Urobilinogen <2.0 (<2.0) mg/dL Ur Leukocyte Esterase Large H (Negative) Urine RBC >182 H (0-5) /hpf Urine WBC >182 H (0-5) /hpf Ur Squamous Epith Cells 1 (0-4) /hpf Urine Bacteria Many H (None) /hpf Hyaline Casts 50 H (0-2) /lpf Urine Mucus Rare H (None) /hpf Disposition Clinical Impression: Abdominal pain, UTI (urinary tract infection) Disposition: ADMITTED IP TO THIS HOSP Condition: Stable Is patient prescribed a controlled substance at d/c from ED?: No Referrals: Kye Mitchell DO [Primary Care Provider] - 1-2 days Time of Disposition: 01:48
[2023-04-04 22:28] LABS: Anisocytosis Slight; Basophils % (A) 0 %; Eosinophils # (A) 0.1 k/uL (0-0.7); Eosinophils % (A) 1 %; HCT 33.6 % (34.0-46.0); HGB 10.8 gm/dL (11.4-16.0); Hypochromasia Slight; Lymphocytes # (A) 0.7 k/uL (1.0-4.8); Lymphocytes % (A) 7 %; MCH 30.6 pg (25.0-35.0); MCV 95.8 fL (80.0-100.0); Macrocytosis Slight; Mean Platelet Volume 7.5; Monocytes # (A) 0.6 k/uL (0-1.0); Monocytes % (A) 7 %; Neutrophils # (A) 8.1 k/uL (1.3-7.7); Neutrophils % (A) 84 %; Platelet Count 248 k/uL (150-450); RBC 3.51 m/uL (3.80-5.40); RDW 17.8 % (11.5-15.5); WBC 9.7 k/uL (3.8-10.6)
[2023-04-04 22:45] LABS: ALT 8 U/L (4-34); AST 16 U/L (14-36); African American GFR (CKD) 51 (>60 ml/min/1.73 sqM); Albumin 3.6 g/dL (3.5-5.0); Alkaline Phosphatase 92 U/L (38-126); Amylase 47 U/L (30-110); Anion Gap 13 mmol/L; Blood Urea Nitrogen 20 mg/dL (7-17); Calcium 9.8 mg/dL (8.4-10.2); Carbon Dioxide 23 mmol/L (22-30); Chloride 103 mmol/L (98-107); Glucose 140 mg/dL (74-99); Lipase 15 U/L (23-300); Non-African American GFR(CKD) 44 (>60 ml/min/1.73 sqM); Potassium 3.7 mmol/L (3.5-5.1); Sodium 139 mmol/L (137-145); Total Bilirubin 1.2 mg/dL (0.2-1.3); Total Protein 6.2 g/dL (6.3-8.2)
[2023-04-04 22:46] LABS: INR 1.1 (<1.2); Partial Thromboplastin Time 32.2 sec (22.0-30.0)
[2023-04-05] MEDS ORDERED: SODIUM CHLORIDE 0.9% 500 ML 500 ML IV ONE (00:39)
[2023-04-05 01:37] LABS: Appearance,Urine Turbid (Clear); Bacteria,Urine Many /hpf; Bilirubin,Urine Negative (Negative); Blood,Urine Large (Negative); Color,Urine Light Orange; Glucose,Urine (UA) 4+ (Negative); Hyaline Casts,Urine 50 /lpf (0-2); Ketones,Urine Negative (Negative); Leukocyte Esterase,Urine Large (Negative); Mucus,Urine Rare /hpf; Nitrite,Urine Negative (Negative); Protein,Urine 2+ (Negative); RBC,Urine >182 /hpf (0-5); Specific Gravity,Urine 1.017 (1.001-1.035); Squamous Epithelial Cell,Urine 1 /hpf (0-4); Urobilinogen,Urine <2.0 mg/dL (<2.0); WBC,Urine >182 /hpf (0-5)
--- NOTE | 2023-04-05 01:38 | CT ---
EXAM: CT Abdomen and Pelvis Without Intravenous Contrast CLINICAL HISTORY: ITS.REASON CT Reason: RLQ pain TECHNIQUE: Axial computed tomography images of the abdomen and pelvis without intravenous contrast. CTDI is 12.4 mGy and DLP is 609.9 mGy-cm. This CT exam was performed using one or more of the following dose reduction techniques: automated exposure control, adjustment of the mA and/or kV according to patient size, and/or use of iterative reconstruction technique. COMPARISON: CT Abdomen Pelvis dated 11/09/2022 FINDINGS: Lung bases: Right lower lobe nodular densities described on the prior not visualized or included on today's study. No consolidation. ABDOMEN: Liver: Unremarkable. Gallbladder and bile ducts: Cholecystectomy. No ductal dilation. Pancreas: Unremarkable. No ductal dilation. Spleen: Unremarkable. No splenomegaly. Adrenals: Unremarkable. No mass. Kidneys and ureters: No hydronephrosis. No perinephric stranding. Stable lobular left renal contour. Stomach and bowel: Colonic diverticulosis. Rectal wall thickening versus partial distention. Mild perirectal and presacral fat stranding. Stranding may relate to generalized pelvic inflammatory changes or proctitis. No obstruction. PELVIS: Appendix: Normal appendix. Bladder: Bladder diverticula as on the prior. Although urinary bladder is minimally distended, there does appear to be bladder wall thickening and surrounding fat stranding. No stones. Reproductive: Absent uterus. ABDOMEN and PELVIS: Intraperitoneal space: Unremarkable. No free air. No significant fluid collection. Bones/joints: Degenerative changes of the spine. Stable grade 1 anterolisthesis at L4-L5. Likely severe canal stenosis at this level. Stable. No acute fracture. No dislocation. Soft tissues: Small fat-containing ventral hernia. Vasculature: Atherosclerotic calcifications of the aortoiliac arteries. No abdominal aortic aneurysm. Lymph nodes: Unremarkable. No enlarged lymph nodes. Tubes, lines and devices: Spinal stimulator as on the prior. Other findings: IMPRESSION: 1. Although urinary bladder is minimally distended, there does appear to be bladder wall thickening and surrounding fat stranding. Correlate for cystitis. 2. Rectal wall thickening versus partial distention. Mild perirectal and presacral fat stranding. Stranding may relate to generalized pelvic inflammatory changes as above or proctitis. 3. Bladder diverticula as on the prior. 4. Normal appendix. 5. Colonic diverticulosis.
[2023-04-05] MEDS ORDERED: ACETAMINOPHEN TAB 325 MG TAB PO PRN (01:43)
[2023-04-05] MEDS ORDERED: NALOXONE 0.4 MG/ML 1 ML VIAL IV PRN (01:43)
[2023-04-05] MEDS: SODIUM CHLORIDE 0.9% 1,000 ML IV SCH ×3 (01:51→15:57)
[2023-04-05] MEDS: HYDROmorphone 0.5 MG/0.5 ML SYRINGE IVP PRN ×4 (03:11→14:03)
[2023-04-05 06:09] LABS: Glucose,Whole Blood 141 mg/dL (70-110)
[2023-04-05 12:07] LABS: Glucose,Whole Blood 142 mg/dL (70-110)
[2023-04-05] MEDS ORDERED: bisacodyL 10 MG SUPP RECTAL PRN (14:48)
[2023-04-05] MEDS ORDERED: polyethylene glycoL 3350 17 GM POWD.PACK PO PRN (14:48)
[2023-04-05] MEDS: PANTOPRAZOLE 40 MG TABLET PO SCH (15:52)
[2023-04-05] MEDS: HYDROmorphone 1 MG/ML 1 ML SYRINGE IVP PRN (15:53)
[2023-04-05] MEDS: OXYCODONE MYRISTATE 9 MG PO SCH ×2 (15:55→19:59)
[2023-04-05] MEDS: DOXYCYCLINE 100 MG CAP PO SCH ×2 (16:15→21:14)
[2023-04-05] MEDS: ESCITALOPRAM 10 MG TAB PO SCH (16:15)
[2023-04-05] MEDS: metroNIDAZOLE-NS PMX 500 MG in SALINE 1 100ML.BAG IVPB SCH ×2 (16:15→23:13)
[2023-04-05] MEDS ORDERED: APIXABAN 5 MG TAB PO SCH (17:00)
[2023-04-05 17:09] LABS: Glucose,Whole Blood 119 mg/dL (70-110)
[2023-04-05] MEDS: LACTULOSE 20 GM/30 ML CUP PO SCH (17:45)
[2023-04-05] MEDS: METOPROLOL TARTRATE 50 MG TAB PO SCH (17:46)
[2023-04-05] MEDS: DOCUSATE 100 MG CAP PO SCH (17:46)
--- NOTE | 2023-04-05 20:04 | XR ---
EXAMINATION TYPE: XR abdomen 1V DATE OF EXAM: 04/05/2023 4:24 PM CLINICAL INDICATION:Female, 73 years old with history of pain; COMPARISON: 04/04/2023. TECHNIQUE: One radiographic view of the abdomen was obtained. FINDINGS: The bowel gas pattern is nonspecific without dilated loops of small or large bowel. There i s no evidence for organomegaly or pneumoperitoneum. The osseous structures are intact. No abnormal calcifications are present. Fecal material and gas are demonstrated throughout the colon and rectum. Right upper quadrant: Cystectomy clips. Nerve stimulator device terminates over the spine. IMPRESSION: Nonspecific bowel gas pattern without radiographic evidence for acute process.
[2023-04-05] MEDS: SENNOSIDES 8.6 MG TAB PO SCH (21:13)
[2023-04-05] MEDS: traZODone HCL 50 MG TAB PO SCH (21:14)
[2023-04-05] MEDS: hydrALAZINE HCL 50 MG TAB PO SCH (21:14)
[2023-04-05] MEDS: azaTHIOprine 50 MG TAB PO SCH (21:14)
[2023-04-05] MEDS: HYDROcodone/APAP 10-325MG 1 EACH TAB PO PRN (21:22)
--- NOTE | 2023-04-05 21:43 | P.CONS ---
History of Present Illness - Reason for Consult Consult date: 04/05/23 - History of Present Illness Patient is a 73-year-old -[place] female with a past medical history significant for diabetes mellitus hypertension atrial fibrillation CVA spinal stenosis history of smoking patient was brought into the hospital for evaluation of right-sided abdominal pain patient symptom has been going on for about 3 days before presentation to the hospital patient also started having some urinary b urning frequency and hematuria for the patient has been diagnosed with UTI and was started on antibiotics however with worsening pain patient did present to the hospital patient complaining of pain to be sharp moderate intensity without any radiation did have some nausea but no vomiting. Denies having any diarrhea last bowel movement was yesterday with no blood in the stool with the symptoms the patient was evaluated on presentation to the hospital patient was afebrile did have a low-grade fever of 99.5 F this afternoon, patient did have white count of 9.7 with a left shift BUN/creatinine mildly elevated enzymes are normal urine has been positive patient did have a CT of abdominal pelvis bladder wall thickening and surrounding fat stranding correlate for cystitis rectal wall thickening versus partial distention with mild Perirectal and presacral fat stranding with concern for possible proctitis patient was started on Rocephin and Flagyl infectious disease was consulted for further management of antibiotic therapy Past Medical History Past Medical History: Atrial Fibrillation, Diabetes Mellitus, Hypertension Additional Past Medical History / Comment(s): 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 Spinal stenosis. Poss thyroid issue. Varicose veins,. CHF History of Any Multi-Drug Resistant Organisms: None Reported Past Surgical History: Cholecystectomy, Heart Catheterization, Hernia Repair, Orthopedic Surgery Additional Past Surgical History / Comment(s): removed bone in left foot, Umbilical hernia, CARDIOVERSION, total right knee replacement Past Anesthesia/Blood Transfusion Reactions: No Reported Reaction Past Psychological History: Anxiety, Depression Smoking Status: Former smoker Past Alcohol Use History: None Reported Additional Past Alcohol Use History / Comment(s): Smoked 20 years, 1 ppd, quit 2002 Past Drug Use History: None Reported Additional Drug Use History / Comment(s): CBD gummies occ for pain, last 1 month ago - Past Family History Father History Unknown: Yes Sister(s) Family Medical History: Cancer Additional Family Medical History / Comment(s): breast cancer Mother Family Medical History: Deep Vein Thrombosis (DVT) Medications and Allergies Home Medications Medication Instructions Recorded Confirmed Type Folic Acid 1 mg PO DAILY@1200 09/07/22 04/05/23 History metHOTREXate sodium [Methotrexate] 20 mg PO MO 10/16/22 04/05/23 History Omeprazole 40 mg PO DAILY 30 Days #30 cap 12/10/22 04/05/23 Rx Apixaban [Eliquis] 5 mg PO BID@0800,1700 02/14/23 04/05/23 History Cholecalciferol [Vitamin D3 (25 25 mcg PO DAILY 02/14/23 04/05/23 History Mcg = 1000 Iu)] Docusate [Colace] 100 mg PO BID@0800,1700 02/14/23 04/05/23 History Empagliflozin [Jardiance] 10 mg PO DAILY@0600 02/14/23 04/05/23 History Escitalopram Oxalate [Lexapro] 10 mg PO DAILY 02/14/23 04/05/23 History Ferrous Sulfate [Iron (65 MG 325 mg PO DAILY 02/14/23 04/05/23 History Elemental)] Furosemide [Lasix] 20 mg PO DAILY 02/14/23 04/05/23 History INSULIN LISPRO (HumaLOG) [humaLOG] See Protocol SQ ACHS 02/14/23 04/05/23 History Isosorbide Mononitrate ER [Imdur] 30 mg PO DAILY 02/14/23 04/05/23 History Lactulose 10 gm PO BID@0800,1700 02/14/23 04/05/23 History Metoprolol Tartrate [Lopressor] 50 mg PO BID@0800,1700 02/14/23 04/05/23 History Na Phos,M-B/Na Phos,Di-Ba [Fleet 133 ml RECTAL DAILY PRN 02/14/23 04/05/23 History Adult] Nitroglycerin Sl Tabs [Nitrostat] 0.4 mg PO Q5M PRN 02/14/23 04/05/23 History Spironolactone 25 mg PO DAILY 02/14/23 04/05/23 History azaTHIOprine [Imuran] 50 mg PO TID@0600,1400,2200 02/14/23 04/05/23 History bisacodyL [Dulcolax] 10 mg RECTAL DAILY PRN 02/14/23 04/05/23 History hydrALAZINE HCL [Apresoline] 50 mg PO BID 02/14/23 04/05/23 History polyethylene glycoL 3350 [Miralax] 17 gm PO DAILY PRN 02/14/23 04/05/23 History traZODone HCL [Desyrel] 50 mg PO HS 02/14/23 04/05/23 History HYDROcodone/APAP 10-325MG [[place] 1 tab PO Q6HR PRN #6 tab 02/18/23 04/05/23 Rx 10-325] Cyanocobalamin [Vitamin B-12] 500 mcg PO DAILY 04/05/23 04/05/23 History Levofloxacin [Levaquin] 500 mg PO DAILY 04/05/23 04/05/23 History Mag Hydrox/Al Hydrox/Simeth 30 ml PO Q6H PRN 04/05/23 04/05/23 History [Maalox] Nicotine Polacrilex [Nicotine Gum] 4 mg BC BID PRN 04/05/23 04/05/23 History Oxycodone Myristate [Xtampza ER] 9 mg PO Q12H 04/05/23 04/05/23 History Sennosides [Senokot] 17.2 mg PO HS 04/05/23 04/05/23 History Allergies Allergy/AdvReac Type Severity Reaction Status Date / Time No Known Allergies Allergy Verified 04/05/23 08:12 Physical Exam Vitals: Vital Signs Temp Pulse Pulse Resp BP BP Pulse Ox 04/05/23 14:25 99.5 F 96 22 147/69 95 04/05/23 07:20 98.0 F 122 H 18 101/65 93 L 04/05/23 03:01 98.2 F 92 16 109/71 93 L 04/05/23 02:30 92 04/05/23 01:29 89 18 111/74 96 04/05/23 00:23 98.9 F 92 18 139/74 97 04/04/23 22:03 98.8 F 94 22 138/97 96 Intake and Output 04/05/23 04/05/23 04/05/23 06:59 14:59 22:59 Intake Total 50 600 Balance 50 600 Intake: Intake, IV Titration 600 Amount Sodium Chloride 0.9% 1, 600 000 ml @ 75 mls/hr IV . [id number] [facility] Rx#:[id number] Oral 50 Other: Voiding Method External Catheter External Catheter Weight 72.575 kg Results CBC & Chem 7: 04/04/23 22:10 04/04/23 22:10 Labs: Abnormal Lab Results - Last 24 Hours (Table) 04/04/23 04/04/23 04/04/23 Range/Units 22:10 22:10 22:10 RBC 3.51 L (3.80-5.40) m/uL Hgb 10.8 L (11.4-16.0) gm/dL Hct 33.6 L (34.0-46.0) % RDW 17.8 H (11.5-15.5) % Neutrophils # 8.1 H (1.3-7.7) k/uL Lymphocytes # 0.7 L (1.0-4.8) k/uL APTT 32.2 H (22.0-30.0) sec BUN 20 H (7-17) mg/dL Creatinine 1.23 H (0.52-1.04) mg/dL Glucose 140 H (74-99) mg/dL POC Glucose (mg/dL) (70-110) mg/dL Total Protein 6.2 L (6.3-8.2) g/dL Lipase 15 L (23-300) U/L Urine Appearance (Clear) Urine Protein (Negative) Urine Glucose (UA) (Negative) Urine Blood (Negative) Ur Leukocyte Esterase (Negative) Urine RBC (0-5) /hpf Urine WBC (0-5) /hpf Urine Bacteria (None) /hpf Hyaline Casts (0-2) /lpf Urine Mucus (None) /hpf 04/05/23 04/05/23 04/05/23 Range/Units 00:48 06:07 12:06 RBC (3.80-5.40) m/uL Hgb (11.4-16.0) gm/dL Hct (34.0-46.0) % RDW (11.5-15.5) % Neutrophils # (1.3-7.7) k/uL Lymphocytes # (1.0-4.8) k/uL APTT (22.0-30.0) sec BUN (7-17) mg/dL Creatinine (0.52-1.04) mg/dL Glucose (74-99) mg/dL POC Glucose (mg/dL) 141 H 142 H (70-110) mg/dL Total Protein (6.3-8.2) g/dL Lipase (23-300) U/L Urine Appearance Turbid H (Clear) Urine Protein 2+ H (Negative) Urine Glucose (UA) 4+ H (Negative) Urine Blood Large H (Negative) Ur Leukocyte Esterase Large H (Negative) Urine RBC >182 H (0-5) /hpf Urine WBC >182 H (0-5) /hpf Urine Bacteria Many H (None) /hpf Hyaline Casts 50 H (0-2) /lpf Urine Mucus Rare H (None) /hpf Assessment and Plan Plan: 1patient presented hospital with abdominal pain hematuria burning of urination this patient who did have a significantly positive UA with evidence of cystitis on the CT did not mention any hydronephrosis or renal stone. 2there was also concern for some perirectal inflammation however the patient denies having any hematochezia or diarrhea 3-blood urine culture [place] results will be followed 4-patient to continue with Rocephin and Flagyl while awaiting further workup to be completed We will follow on clinical condition and cultures to further adjust medication i f needed Thank you for this consultation we will follow the patient along with you Dictation was produced using [employer] dictation software. please excuse any grammatical, word or spelling errors. Time with Patient: Greater than 30
[2023-04-05 22:18] LABS: Glucose,Whole Blood 183 mg/dL (70-110)
[2023-04-06] MEDS ORDERED: ATORVASTATIN 20 MG TAB PO ONE (00:15)
[2023-04-06] MEDS ORDERED: ASPIRIN 325 MG TAB PO ONE (00:15)
[2023-04-06] MEDS ORDERED: HEPARIN SODIUM 1,000 UN/ML (10ML VL) IV PRN (00:15)
[2023-04-06] MEDS ORDERED: HEPARIN SOD,PORK IN 0.45% NACL 25,000 UNIT in 0.45% NACL 1 250ML.BAG IV SCH (00:15)
[2023-04-06] MEDS ORDERED: HEPARIN SODIUM 1,000 UN/ML (10ML VL) IV ONE (00:15)
--- NOTE | 2023-04-06 00:37 | P.HPIM ---
History of Present Illness H&P Date: 04/05/23 Chief Complaint: Abdominal pain Patient is a 73-year-old female with known history of hypertension, diabetes type 2, atrial fibrillation on anticoagulation with Eliquis, history of CVA with minimal left-sided weakness and spinal stenosis, anxiety/depression, prior history of smoking, chronic pain patient presented to ER with complaints of abdominal pain mainly in the right lower quadrant. Patient has been having pain for the past 3 days. she was also having hematuria and was seen by her physician and was started antibiotics in the form of Levaquin. Patient presented to ER with out significant improvement. Patient otherwise denies any complaints of fever. No chills. Does have nausea and also some vomiting. No complaints of worsening back pain flank pain. No complaints of diarrhea. Patient does have history of constipation. On admission CT of the abdomen pelvis showed urinary bladder is minimally distended and bladder wall thickening and surrounding fat stranding correlate for cystitis. Rectal wall thickening versus possible distention. Mild perirectal and sacral fat stranding may be related to generalized pelvic inflammatory changes or proctitis. Laboratory data showed WBC 9.7 hemoglobin 10.8 and platelets 248 Sodium 139 potassium 3.7 chloride 103 bicarb is 23 BUN 20 and creatinine 1.23. Blood sugar 140 Liver edge is not elevated. Total bilirubin 1.2 amylase 47 lipase 50 and urinalysis showed turbid with 2+ protein, 4+ glucose, large blood, large leukocyte esterase and elevated RBCs and WBCs. Review of Systems Constitutional: Patient denies any fever or chills . Generalized weakness. Abdomen: Patient does have nausea. No vomiting. Patient does have abdominal pain mainly right lower quadrant and generalized. Cardiovascular: Patient denies any chest pain or short of breath no palpitations. Respiratory: patient denied any cough . no sputum production. No shortness of breath Neurologic: Patient denied any numbness or tingling or headache. Musculoskeletal: Patient denies any complaints of joint swelling or deformity. Skin: Negative Psychiatric: Negative Endocrine: No heat or cold intolerance. No recent weight gain. Genitourinary: Patient did have dysuria and hematuria. All other 14 point ROS negative except the above Past Medical History Past Medical History: Atrial Fibrillation, Diabetes Mellitus, Hypertension Additional Past Medical History / Comment(s): 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 Spinal stenosis. Poss thyroid issue. Varicose veins,. CHF History of Any Multi-Drug Resistant Organisms: None Reported Past Surgical History: Cholecystectomy, Heart Catheterization, Hernia Repair, Orthopedic Surgery Additional Past Surgical History / Comment(s): removed bone in left foot, Umbilical hernia, CARDIOVERSION, total right knee replacement Past Anesthesia/Blood Transfusion Reactions: No Reported Reaction Past Psychological History: Anxiety, Depression Smoking Status: Former smoker Past Alcohol Use History: None Reported Additional Past Alcohol Use History / Comment(s): Smoked 20 years, 1 ppd, quit 2002 Past Drug Use History: None Reported Additional Drug Use History / Comment(s): CBD gummies occ for pain, last 1 month ago - Past Family History Father History Unknown: Yes Sister(s) Family Medical History: Cancer Additional Family Medical History / Comment(s): breast cancer Mother Family Medical History: Deep Vein Thrombosis (DVT) Medications and Allergies Home Medications Medication Instructions Recorded Confirmed Type Folic Acid 1 mg PO DAILY@1200 09/07/22 04/05/23 History metHOTREXate sodium [Methotrexate] 20 mg PO MO 10/16/22 04/05/23 History Omeprazole 40 mg PO DAILY 30 Days #30 cap 12/10/22 04/05/23 Rx Apixaban [Eliquis] 5 mg PO BID@0800,1700 02/14/23 04/05/23 History Cholecalciferol [Vitamin D3 (25 25 mcg PO DAILY 02/14/23 04/05/23 History Mcg = 1000 Iu)] Docusate [Colace] 100 mg PO BID@0800,1700 02/14/23 04/05/23 History Empagliflozin [Jardiance] 10 mg PO DAILY@0600 02/14/23 04/05/23 History Escitalopram Oxalate [Lexapro] 10 mg PO DAILY 02/14/23 04/05/23 History Ferrous Sulfate [Iron (65 MG 325 mg PO DAILY 02/14/23 04/05/23 History Elemental)] Furosemide [Lasix] 20 mg PO DAILY 02/14/23 04/05/23 History INSULIN LISPRO (HumaLOG) [humaLOG] See Protocol SQ ACHS 02/14/23 04/05/23 History Isosorbide Mononitrate ER [Imdur] 30 mg PO DAILY 02/14/23 04/05/23 History Lactulose 10 gm PO BID@0800,1700 02/14/23 04/05/23 History Metoprolol Tartrate [Lopressor] 50 mg PO BID@0800,1700 02/14/23 04/05/23 History Na Phos,M-B/Na Phos,Di-Ba [Fleet 133 ml RECTAL DAILY PRN 02/14/23 04/05/23 History Adult] Nitroglycerin Sl Tabs [Nitrostat] 0.4 mg PO Q5M PRN 02/14/23 04/05/23 History Spironolactone 25 mg PO DAILY 02/14/23 04/05/23 History azaTHIOprine [Imuran] 50 mg PO TID@0600,1400,2200 02/14/23 04/05/23 History bisacodyL [Dulcolax] 10 mg RECTAL DAILY PRN 02/14/23 04/05/23 History hydrALAZINE HCL [Apresoline] 50 mg PO BID 02/14/23 04/05/23 History polyethylene glycoL 3350 [Miralax] 17 gm PO DAILY PRN 02/14/23 04/05/23 History traZODone HCL [Desyrel] 50 mg PO HS 02/14/23 04/05/23 History HYDROcodone/APAP 10-325MG [[place] 1 tab PO Q6HR PRN #6 tab 02/18/23 04/05/23 Rx 10-325] Cyanocobalamin [Vitamin B-12] 500 mcg PO DAILY 04/05/23 04/05/23 History Levofloxacin [Levaquin] 500 mg PO DAILY 04/05/23 04/05/23 History Mag Hydrox/Al Hydrox/Simeth 30 ml PO Q6H PRN 04/05/23 04/05/23 History [Maalox] Nicotine Polacrilex [Nicotine Gum] 4 mg BC BID PRN 04/05/23 04/05/23 History Oxycodone Myristate [Xtampza ER] 9 mg PO Q12H 04/05/23 04/05/23 History Sennosides [Senokot] 17.2 mg PO HS 04/05/23 04/05/23 History Allergies Allergy/AdvReac Type Severity Reaction Status Date / Time No Known Allergies Allergy Verified 04/05/23 08:12 Physical Exam Vitals: Vital Signs Temp Pulse Pulse Resp BP BP Pulse Ox 04/05/23 14:25 99.5 F 96 22 147/69 95 04/05/23 07:20 98.0 F 122 H 18 101/65 93 L 04/05/23 03:01 98.2 F 92 16 109/71 93 L 04/05/23 02:30 92 04/05/23 01:29 89 18 111/74 96 04/05/23 00:23 98.9 F 92 18 139/74 97 04/04/23 22:03 98.8 F 94 22 138/97 96 Intake and Output 04/04/23 04/05/23 04/05/23 22:59 06:59 14:59 Intake Total 50 600 Balance 50 600 Intake: Intake, IV Titration 600 Amount Sodium Chloride 0.9% 1, 600 000 ml @ 75 mls/hr IV . [id number] [facility] Rx#:[id number] Oral 50 Other: Voiding Method External Catheter External Catheter Weight 72.575 kg 72.575 kg PHYSICAL EXAMINATION: Patient is lying in the bed. Appears to be in mild distress due to pain awake alert and oriented.. HEENT: Normocephalic. Neck is supple. Pupils reactive. Nostrils clear. Oral cavity is moist. Neck reveals no JVD, carotid bruits, or thyromegaly. CHEST EXAMINATION: Trachea is central. Symmetrical expansion. Lung nielson clear to auscultation and percussion. CARDIAC: Normal S1, S2 with no gallops. No murmurs ABDOMEN: Soft. Bowel sounds present. Patient does have generalized tenderness. Guarding. No rigidity.. No abdominal bruits. Extremities: reveal trace pedal edema. No clubbing or cyanosis Neurologically awake, alert, oriented x3. Able to move all extremities. Minimal left-sided weakness. Skin: No rash or skin lesions. Psychiatric: Coperative. Nonsuicidal, Musculoskeletal: No joint swelling or deformity. Results CBC & Chem 7: 04/04/23 22:10 04/04/23 22:10 Labs: Abnormal Lab Results - Last 24 Hours (Table) 04/04/23 04/04/23 04/04/23 Range/Units 22:10 22:10 22:10 RBC 3.51 L (3.80-5.40) m/uL Hgb 10.8 L (11.4-16.0) gm/dL Hct 33.6 L (34.0-46.0) % RDW 17.8 H (11.5-15.5) % Neutrophils # 8.1 H (1.3-7.7) k/uL Lymphocytes # 0.7 L (1.0-4.8) k/uL APTT 32.2 H (22.0-30.0) sec BUN 20 H (7-17) mg/dL Creatinine 1.23 H (0.52-1.04) mg/dL Glucose 140 H (74-99) mg/dL POC Glucose (mg/dL) (70-110) mg/dL Total Protein 6.2 L (6.3-8.2) g/dL Lipase 15 L (23-300) U/L Urine Appearance (Clear) Urine Protein (Negative) Urine Glucose (UA) (Negative) Urine Blood (Negative) Ur Leukocyte Esterase (Negative) Urine RBC (0-5) /hpf Urine WBC (0-5) /hpf Urine Bacteria (None) /hpf Hyaline Casts (0-2) /lpf Urine Mucus (None) /hpf 04/05/23 04/05/23 04/05/23 Range/Units 00:48 06:07 12:06 RBC (3.80-5.40) m/uL Hgb (11.4-16.0) gm/dL Hct (34.0-46.0) % RDW (11.5-15.5) % Neutrophils # (1.3-7.7) k/uL Lymphocytes # (1.0-4.8) k/uL APTT (22.0-30.0) sec BUN (7-17) mg/dL Creatinine (0.52-1.04) mg/dL Glucose (74-99) mg/dL POC Glucose (mg/dL) 141 H 142 H (70-110) mg/dL Total Protein (6.3-8.2) g/dL Lipase (23-300) U/L Urine Appearance Turbid H (Clear) Urine Protein 2+ H (Negative) Urine Glucose (UA) 4+ H (Negative) Urine Blood Large H (Negative) Ur Leukocyte Esterase Large H (Negative) Urine RBC >182 H (0-5) /hpf Urine WBC >182 H (0-5) /hpf Urine Bacteria Many H (None) /hpf Hyaline Casts 50 H (0-2) /lpf Urine Mucus Rare H (None) /hpf Thrombosis Risk Factor Assmnt - DVT/VTE Prophylaxis DVT/VTE Prophylaxis: Pharmacologic Prophylaxis ordered - Choose All That Apply Any of the Below Risk Factors Present?: Yes Each Factor Represents 1 point: Obesity (BMI >25) Other Risk Factors: Yes Each Risk Factor Represents 2 Points: Age 61-74 years Other congenital or acquired thrombophilia - If yes, enter type in comment: No Thrombosis Risk Factor Assessment Total Risk Factor Score: 3 Thrombosis Risk Factor Assessment Level: Moderate Risk Assessment and Plan Assessment: Acute urinary tract infection with dysuria and hematuria. Patient was recently started on Levaquin. Possible Pelvic inflammatory disease. Patient does have generalized lower abdominal pain mainly right lower quadrant. CT findings of generalized pelvic i nflammatory changes versus proctitis. Acute kidney injury likely prerenal. Baseline creatinine 0.8 Atrial fibrillation on anticoagulation with Eliquis Hypertension Diabetes type 2 insulin-dependent History of CVA with right-sided mild residual weakness Rheumatoid arthritis patient is on methotrexate and Imuran Anxiety/depression Prior history of smoking History of CBD Gummies use for pain Chronic pain Constipation GI bleed prophylaxis with PPI and patient is already on Eliquis Plan: Patient will be continued on gentle IV hydration. Continue with antibiotics ceftriaxone and will add Flagyl and doxycycline for possible PID. Continue with pain management with Dilaudid IV. General surgery and ID will be consulted. Continue insulin/scale and follow-up closely. Current home medications. Prognosis guarded. Discussed with the family at bedside in detail. Time with Patient: Greater than 30
[2023-04-06] MEDS: SODIUM CHLORIDE 0.9% 1,000 ML IV SCH ×3 (02:49→21:46)
[2023-04-06] MEDS ORDERED: AMIODARONE 360 MG in DEXTROSE 5% IN WATER 200 ML IV ONE ×2 (03:00)
[2023-04-06 03:34] LABS: Anisocytosis Slight; Basophils % (A) 1 %; Eosinophils # (A) 0.1 k/uL (0-0.7); Eosinophils % (A) 1 %; HCT 31.3 % (34.0-46.0); HGB 9.8 gm/dL (11.4-16.0); Hypochromasia Moderate; Lymphocytes % (A) 20 %; MCH 30.3 pg (25.0-35.0); MCHC 31.2 g/dL (31.0-37.0); MCV 97.1 fL (80.0-100.0); Macrocytosis Slight; Mean Platelet Volume 7.9; Monocytes # (A) 0.3 k/uL (0-1.0); Monocytes % (A) 5 %; Neutrophils # (A) 3.4 k/uL (1.3-7.7); Neutrophils % (A) 71 %; Platelet Count 234 k/uL (150-450); RBC 3.23 m/uL (3.80-5.40); RDW 17.9 % (11.5-15.5); WBC 4.9 k/uL (3.8-10.6)
[2023-04-06 03:43] LABS: ALT 10 U/L (4-34); AST 22 U/L (14-36); African American GFR (CKD) 36 (>60 ml/min/1.73 sqM); Albumin 3.1 g/dL (3.5-5.0); Albumin/Globulin Ratio 1.2; Alkaline Phosphatase 91 U/L (38-126); Anion Gap 12 mmol/L; Blood Urea Nitrogen 27 mg/dL (7-17); Calcium 9.3 mg/dL (8.4-10.2); Carbon Dioxide 20 mmol/L (22-30); Chloride 105 mmol/L (98-107); Globulin 2.6 g/dL; Glucose 131 mg/dL (74-99); Non-African American GFR(CKD) 31 (>60 ml/min/1.73 sqM); Potassium 3.7 mmol/L (3.5-5.1); Sodium 137 mmol/L (137-145); Total Bilirubin 0.5 mg/dL (0.2-1.3); Total Protein 5.7 g/dL (6.3-8.2)
[2023-04-06 03:51] LABS: INR 1.1 (<1.2); Prothrombin Time 12.3 sec (10.0-12.5)
[2023-04-06 03:54] LABS: Glucose,Whole Blood 136 mg/dL (70-110)
[2023-04-06] MEDS: azaTHIOprine 50 MG TAB PO SCH ×3 (06:04→21:31)
--- NOTE | 2023-04-06 07:58 | XR ---
EXAMINATION TYPE: XR chest 1V DATE OF EXAM: 04/06/2023 COMPARISON: 02/14/2023 INDICATION: Chest pain TECHNIQUE: Single frontal view of the chest is obtained. FINDINGS: The heart size is enlarged. The pulmonary vasculature is normal. The lungs are clear. Stimulator leads are in the mid lower thoracic region. IMPRESSION: 1. No acute pulmonary process.
[2023-04-06] MEDS: OXYCODONE MYRISTATE 9 MG PO SCH ×2 (08:00→21:44)
[2023-04-06] MEDS: ISOSORBIDE MONONITRATE ER 30 MG TAB.ER.24H PO SCH (08:01)
[2023-04-06] MEDS: FUROSEMIDE 20 MG TAB PO SCH (08:01)
[2023-04-06] MEDS: metroNIDAZOLE-NS PMX 500 MG in SALINE 1 100ML.BAG IVPB SCH ×2 (08:01→16:21)
[2023-04-06] MEDS: METOPROLOL TARTRATE 50 MG TAB PO SCH ×2 (08:01→16:28)
[2023-04-06] MEDS: DOCUSATE 100 MG CAP PO SCH ×2 (08:05→16:15)
[2023-04-06] MEDS: LACTULOSE 20 GM/30 ML CUP PO SCH ×2 (08:05→16:15)
[2023-04-06] MEDS ORDERED: AMIODARONE 450 MG in DEXTROSE 5% IN WATER 250 ML IV SCH ×2 (09:00)
[2023-04-06] MEDS ORDERED: METOPROLOL TARTRATE 12.5 MG TAB PO STA (09:48)
--- NOTE | 2023-04-06 09:50 | P.CRDCN ---
History of Present Illness Consult date: 04/06/23 Reason for Consult (text): Elevated troponin History of present illness: The patient is a 73-year-old female who follows in the office with Dr. Fatima. The patient presented to the emergency room with abdominal discomfort and feeling unwell over the last several days. She states she's been struggling with urinary tract infection over the last 2 weeks, however her symptoms have only worsened. Patient was found to have a urinary tract infection as well as pelvic inflammatory changes versus proctitis. Infectious disease has been consulted and the patient has been maintaining on IV antibiotics. Cardiology was consulted for elevated troponin levels at 0.08 and 0.13. She does have a history of persistent atrial fibrillation. Heart rates have been mildly elevated since her admission, likely secondary to her infection. DIAGNOSTICS: EKG shows atrial fibrillation. No ST or T-wave abnormalities. Abdominal CT shows bladder wall thickening with surrounding fat stranding, rectal wall thickening versus partial distention indicating generalized pelvic inflammatory changes versus proctitis Abdominal x-ray shows nonspecific bowel gas pattern without acute process Chest x-ray shows no acute cardiopulmonary process Lab data: WBC 9.7, hemoglobin 10.8, hematocrit 33.6, platelet 248, sodium 137, potassium 3.7, BUN 27, creatinine 1.65, AST 22, ALT 10, troponins 0.08, 0.13, amylase 47, lipase 15 REVIEW OF SYSTEMS: No fever or chills. No cough or expectoration. No diaphoresis. Patient denies headache, dizziness, blurred vision, double vision. Positive for abdominal discomfort. No nausea, vomiting. No hematochezia. No hematemesis. Denies any black stools or blood in his stools. Denies dysuria or hematuria. No muscle weakness or numbness. Denies chest pain or chest pressure. No difficulty breathing PHYSICAL EXAMINATION: This is a 73-year-old female in no apparent distress at the time of my examination. HEENT: Head is atraumatic, normocephalic. Pupils are equal, round. There is no jugular venous distention. No carotid bruit is heard. CHEST EXAMINATION: Lungs are clear to auscultation. No chest wall tenderness is noted on palpation or with deep breathing. HEART EXAMINATION: Heart regular rate and rhythm. S1, S2 heard. No murmurs, gallops or rub. ABDOMEN: Soft, nontender. Bowel sounds are heard. No organomegaly noted. EXTREMITIES: 2+ peripheral pulses with no evidence of peripheral edema and no calf tenderness noted. NEUROLOGIC EXAMINATION: Patient is awake, alert and oriented x3. FINAL ASSESSMENT AND PLAN: Elevated troponin, likely secondary LOPEZ and infection Persistent atrial fibrillation Acute urinary tract infection with pelvic inflammatory changes versus proctitis Hypertension Diabetes History of CVA PLAN: Continue heparin drip No current plans for cardiac catheterization Confirm cardiac medication regimen from [facility]. Increase oral beta sid for rate control Further recommendations based on clinical course I am dictating on behalf of Dr Vicente Calvo's history/physical and assessment/plan. 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 Spinal stenosis. Poss thyroid issue. Varicose veins,. CHF History of Any Multi-Drug Resistant Organisms: None Reported Past Surgical History: Cholecystectomy, Heart Catheterization, Hernia Repair, Orthopedic Surgery Additional Past Surgical History / Comment(s): removed bone in left foot, Umbilical hernia, CARDIOVERSION, total right knee replacement Past Anesthesia/Blood Transfusion Reactions: No Reported Reaction Past Psychological History: Anxiety, Depression Smoking Status: Former smoker Past Alcohol Use History: None Reported Additional Past Alcohol Use History / Comment(s): Smoked 20 years, 1 ppd, quit 2002 Past Drug Use History: None Reported Additional Drug Use History / Comment(s): CBD gummies occ for pain, last 1 month ago - Past Family History Father History Unknown: Yes Sister(s) Family Medical History: Cancer Additional Family Medical History / Comment(s): breast cancer Mother Family Medical History: Deep Vein Thrombosis (DVT) Medications and Allergies Home Medications Medication Instructions Recorded Confirmed Type Folic Acid 1 mg PO DAILY@1200 09/07/22 04/05/23 History metHOTREXate sodium [Methotrexate] 20 mg PO MO 10/16/22 04/05/23 History Omeprazole 40 mg PO DAILY 30 Days #30 cap 12/10/22 04/05/23 Rx Apixaban [Eliquis] 5 mg PO BID@0800,1700 02/14/23 04/05/23 History Cholecalciferol [Vitamin D3 (25 25 mcg PO DAILY 02/14/23 04/05/23 History Mcg = 1000 Iu)] Docusate [Colace] 100 mg PO BID@0800,1700 02/14/23 04/05/23 History Empagliflozin [Jardiance] 10 mg PO DAILY@0600 02/14/23 04/05/23 History Escitalopram Oxalate [Lexapro] 10 mg PO DAILY 02/14/23 04/05/23 History Ferrous Sulfate [Iron (65 MG 325 mg PO DAILY 02/14/23 04/05/23 History Elemental)] Furosemide [Lasix] 20 mg PO DAILY 02/14/23 04/05/23 History INSULIN LISPRO (HumaLOG) [humaLOG] See Protocol SQ ACHS 02/14/23 04/05/23 History Isosorbide Mononitrate ER [Imdur] 30 mg PO DAILY 02/14/23 04/05/23 History Lactulose 10 gm PO BID@0800,1700 02/14/23 04/05/23 History Metoprolol Tartrate [Lopressor] 50 mg PO BID@0800,1700 02/14/23 04/05/23 History Na Phos,M-B/Na Phos,Di-Ba [Fleet 133 ml RECTAL DAILY PRN 02/14/23 04/05/23 History Adult] Nitroglycerin Sl Tabs [Nitrostat] 0.4 mg PO Q5M PRN 02/14/23 04/05/23 History Spironolactone 25 mg PO DAILY 02/14/23 04/05/23 History azaTHIOprine [Imuran] 50 mg PO TID@0600,1400,2200 02/14/23 04/05/23 History bisacodyL [Dulcolax] 10 mg RECTAL DAILY PRN 02/14/23 04/05/23 History hydrALAZINE HCL [Apresoline] 50 mg PO BID 02/14/23 04/05/23 History polyethylene glycoL 3350 [Miralax] 17 gm PO DAILY PRN 02/14/23 04/05/23 History traZODone HCL [Desyrel] 50 mg PO HS 02/14/23 04/05/23 History HYDROcodone/APAP 10-325MG [[place] 1 tab PO Q6HR PRN #6 tab 02/18/23 04/05/23 Rx 10-325] Cyanocobalamin [Vitamin B-12] 500 mcg PO DAILY 04/05/23 04/05/23 History Levofloxacin [Levaquin] 500 mg PO DAILY 04/05/23 04/05/23 History Mag Hydrox/Al Hydrox/Simeth 30 ml PO Q6H PRN 04/05/23 04/05/23 History [Maalox] Nicotine Polacrilex [Nicotine Gum] 4 mg BC BID PRN 04/05/23 04/05/23 History Oxycodone Myristate [Xtampza ER] 9 mg PO Q12H 04/05/23 04/05/23 History Sennosides [Senokot] 17.2 mg PO HS 04/05/23 04/05/23 History Allergies Allergy/AdvReac Type Severity Reaction Status Date / Time No Known Allergies Allergy Verified 04/05/23 08:12 Physical Exam Vitals: Vital Signs Temp Pulse Pulse Resp BP BP BP 04/06/23 09:00 96 13 141/94 04/06/23 08:00 98.9 F 96 120 H 19 120/76 04/06/23 07:00 92 15 109/63 04/06/23 06:00 104 H 17 116/84 04/06/23 05:00 88 14 111/74 04/06/23 04:00 97.3 F L 99 15 127/104 04/06/23 01:30 99.0 F 120 H 18 85/60 92/62 04/05/23 20:00 98.4 F 99 20 133/77 04/05/23 14:25 99.5 F 96 22 147/69 Pulse Ox 04/06/23 09:00 95 04/06/23 08:00 98 04/06/23 07:00 93 L 04/06/23 06:00 95 04/06/23 05:00 94 L 04/06/23 04:00 94 L 04/06/23 01:30 96 04/05/23 20:00 93 L 04/05/23 14:25 95 Intake and Output 04/05/23 04/06/23 04/06/23 22:59 06:59 14:59 Intake Total 600 Balance 600 Intake: Intake, IV Titration 600 Amount Sodium Chloride 0.9% 1, 600 000 ml @ 75 mls/hr IV . [id number] [facility] Rx#:[id number] Other: Voiding Method Bedside Commode Bedside Commode Bedside Commode Diaper Diaper External Catheter # Voids 1 # Bowel Movements 1 Results 04/06/23 02:55 04/06/23 02:55 Cardiac Enzymes 04/05/23 04/06/23 04/06/23 Range/Units 22:14 00:54 02:55 AST 22 (14-36) U/L Troponin I 0.081 H* 0.136 H* (0.000-0.034) ng/mL Coagulation 04/06/23 04/06/23 04/06/23 Range/Units 02:55 02:55 07:28 PT 12.3 (10.0-12.5) sec APTT 50.5 H 43.4 H (22.0-30.0) sec CBC 04/06/23 Range/Units 02:55 WBC 4.9 (3.8-10.6) k/uL RBC 3.23 L (3.80-5.40) m/uL Hgb 9.8 L (11.4-16.0) gm/dL Hct 31.3 L (34.0-46.0) % Plt Count 234 (150-450) k/uL Comprehensive Metabolic Panel 04/06/23 Range/Units 02:55 Sodium 137 (137-145) mmol/L Potassium 3.7 (3.5-5.1) mmol/L Chloride 105 (98-107) mmol/L Carbon Dioxide 20 L (22-30) mmol/L BUN 27 H (7-17) mg/dL Creatinine 1.65 H (0.52-1.04) mg/dL Glucose 131 H (74-99) mg/dL Calcium 9.3 (8.4-10.2) mg/dL AST 22 (14-36) U/L ALT 10 (4-34) U/L Alkaline Phosphatase 91 (38-126) U/L Total Protein 5.7 L (6.3-8.2) g/dL Albumin 3.1 L (3.5-5.0) g/dL Current Medications Generic Name Dose Route Start Last Admin Trade Name Freq PRN Reason Stop Dose Admin Acetaminophen 650 mg 04/05/23 01:43 Acetaminophen Tab 325 Mg Tab PO Q6HR PRN Mild Pain or Fever > 100.5 Hydrocodone Bitart/Acetaminophen 1 each 04/05/23 14:48 04/05/23 21:22 Hydrocodone/Apap 10-325mg 1 Each Tab PO 1 each Q6HR PRN Administration Pain Azathioprine 50 mg 04/05/23 22:00 04/06/23 06:04 Azathioprine 50 Mg Tab PO 50 mg TID@0600,1400,2200 [facility] Administration Bisacodyl 10 mg 04/05/23 14:48 Bisacodyl 10 Mg Supp RECTAL DAILY PRN Constipation Cyanocobalamin 500 mcg 04/06/23 09:00 Cyanocobalamin 500 Mcg Tab PO DAILY [facility] Docusate Sodium 100 mg 04/05/23 17:00 04/06/23 08:05 Docusate 100 Mg Cap PO Not Given BID@0800,1700 [facility] Doxycycline Monohydrate 100 mg 04/05/23 15:46 04/05/23 21:14 Doxycycline 100 Mg Cap PO 100 mg BID [facility] Administration Protocol Escitalopram Oxalate 10 mg 04/05/23 15:00 04/05/23 16:15 Escitalopram 10 Mg Tab PO 10 mg DAILY [facility] Administration Furosemide 20 mg 04/06/23 09:00 04/06/23 08:01 Furosemide 20 Mg Tab PO 20 mg DAILY [facility] Administration Heparin Sodium (Porcine) 0 unit 04/06/23 00:15 Heparin Sodium 1,000 Un/Ml (10ml Vl) IV PER PROTOCOL PRN Low PTT Protocol Hydralazine HCl 50 mg 04/05/23 21:00 04/05/23 21:14 Hydralazine Hcl 50 Mg Tab PO 50 mg BID [facility] Administration Hydromorphone HCl 1 mg 04/05/23 15:38 04/05/23 15:53 Hydromorphone 1 Mg/Ml 1 Ml Syringe IVP 1 mg Q3HR PRN Administration Moderate Pain (Scale 4 to 6) Ceftriaxone Sodium 1 gm/ 50 mls @ 100 mls/hr 04/05/23 21:00 04/05/23 21:14 Sodium Chloride IVPB 100 mls/hr Q24H [facility] Administration Protocol Metronidazole 500 mg/ IV 100 mls @ 100 mls/hr 04/05/23 16:00 04/06/23 08:01 Solution IVPB 100 mls/hr Q8HR [facility] Administration Protocol Sodium Chloride 1,000 mls @ 75 mls/hr 04/05/23 16:00 04/06/23 06:04 Saline 0.9% IV 75 mls/hr .[id number] [facility] Administration Heparin Sodium/Sodium Chloride 250 mls @ 8.709 mls/hr 04/06/23 00:15 04/06/23 01:02 25,000 unit/ Sodium Chloride IV 12 units/kg/hr .Q24H [facility] 8.709 mls/hr Administration Protocol 12 UNITS/KG/HR Amiodarone HCl 450 mg/ 250 mls @ 16.667 mls/hr 04/06/23 09:00 Dextrose/Water IV 04/07/23 02:59 .Q15H [facility] Protocol 0.5 MG/MIN Isosorbide Mononitrate 30 mg 04/06/23 09:00 04/06/23 08:01 Isosorbide Mononitrate Er 30 Mg Tab.Er.24h PO 30 mg DAILY [facility] Administration Lactulose 10 gm 04/05/23 17:00 04/06/23 08:05 Lactulose 20 Gm/30 Ml Cup PO Not Given BID@0800,1700 [facility] Methotrexate 20 mg 04/11/23 09:00 Methotrexate Sodium 2.5 Mg Tab PO MO [facility] Metoprolol Tartrate 50 mg 04/05/23 17:00 04/06/23 08:01 Metoprolol Tartrate 50 Mg Tab PO 50 mg BID@0800,1700 [facility] Administration Naloxone HCl 0.2 mg 04/05/23 01:43 Naloxone 0.4 Mg/Ml 1 Ml Vial IV Q2M PRN Opioid Reversal Patient's Own ( 9 mg 04/05/23 15:00 04/06/23 08:00 Oxycodone Myristate PO Not Given [Xtampza Er] 9 Mg Q12HR [facility] Cap.Spr.12) Pantoprazole Sodium 40 mg 04/05/23 15:00 04/05/23 15:52 Pantoprazole 40 Mg Tablet PO 40 mg DAILY [facility] Administration Polyethylene Glycol 17 gm 04/05/23 14:48 Polyethylene Glycol 3350 17 Gm Powd.Pack PO DAILY PRN Constipation Senna 17.2 mg 04/05/23 21:00 04/05/23 21:13 Sennosides 8.6 Mg Tab PO 17.2 mg HS [facility] Administration Spironolactone 25 mg 04/06/23 09:00 Spironolactone 25 Mg Tab PO DAILY [facility] Trazodone HCl 50 mg 04/05/23 21:00 04/05/23 21:14 Trazodone Hcl 50 Mg Tab PO 50 mg HS [facility] Administration Intake and Output 04/05/23 04/06/23 04/06/23 22:59 06:59 14:59 Intake Total 600 Balance 600 Intake: Intake, IV Titration 600 Amount Sodium Chloride 0.9% 1, 600 000 ml @ 75 mls/hr IV . [id number] [facility] Rx#:[id number] Other: Voiding Method Bedside Commode Bedside Commode Bedside Commode Diaper Diaper External Catheter # Voids 1 # Bowel Movements 1 04/06/23 02:55 04/06/23 02:55
[2023-04-06] MEDS: PANTOPRAZOLE 40 MG TABLET PO SCH (10:42)
[2023-04-06] MEDS: DOXYCYCLINE 100 MG CAP PO SCH ×2 (10:42→21:29)
[2023-04-06] MEDS: CYANOCOBALAMIN 500 MCG TAB PO SCH (10:42)
[2023-04-06] MEDS: hydrALAZINE HCL 50 MG TAB PO SCH ×2 (10:42→21:32)
[2023-04-06] MEDS: SPIRONOLACTONE 25 MG TAB PO SCH (10:42)
[2023-04-06] MEDS: ESCITALOPRAM 10 MG TAB PO SCH (10:42)
[2023-04-06] MEDS ORDERED: VANCOMYCIN IV PER PHARMACY 1 EACH MISC MISCELLANE PRN (11:23)
[2023-04-06] MEDS ORDERED: VANCOMYCIN 1,500 MG in SODIUM CHLORIDE 0.9% 500 ML 500 ML IVPB ONE (12:00)
--- NOTE | 2023-04-06 12:04 | CA ---
Transthoracic Echo Report Name: Shanta Marquez Age: 73 Gender: F : 1950 Exam Date: 04/06/2023 08:57 Exam Location: [place] [facility] Ht (in): 61 Wt (lb): 160 Ordering Physician: Fernando Kenny MD Attending/Referring Phys: [id number], Zoya General Manager [employer] RDCS Procedure CPT: Indications: Rule out heart disease Cardiac Hx: Technical Quality: Fair Contrast 1: Total Dose (mL): Contrast 2: Total Dose (mL): MEASUREMENTS (Male / Female) Normal Values 2D ECHO LV Diastolic Diameter PLAX 4.6 cm 4.2 - 5.9 / 3.9 - 5.3 cm LV Systolic Diameter PLAX 3.0 cm IVS Diastolic Thickness 1.3 cm 0.6 - 1.0 / 0.6 - 0.9 cm LVPW Diastolic Thickness 1.5 cm 0.6 - 1.0 / 0.6 - 0.9 cm LV Relative Wall Thickness 0.6 RV Internal Dim ED PLAX 4.5 cm LVOT Diameter 2.1 cm LA Volume 82.8 cm??? 18 - 58 / 22 - 52 cm??? LA Volume Index 46.1 cm???/m??? 16 - 28 cm???/m??? M-MODE Aortic Root Diameter MM 3.0 cm LA Systolic Diameter MM 4.5 cm LA Ao Ratio MM 1.5 AV Cusp Separation MM 2.0 cm DOPPLER AV Peak Velocity 132.2 cm/s AV Peak Gradient 7.0 mmHg AV Mean Velocity 95.9 cm/s AV Mean Gradient 4.0 mmHg AV Velocity Time Integral 21.9 cm LVOT Peak Velocity 93.6 cm/s LVOT Peak Gradient 3.5 mmHg LVOT Velocity Time Integral 15.5 cm LVOT Stroke Volume 52.0 cm??? LVOT Stroke Volume Index 30.3 ml/m??? LVOT Cardiac Index 2897.2 cm???/min???m??? AV Area Cont Eq vti 2.4 cm??? AV Area Cont Eq pk 2.4 cm??? MV Area PHT 3.4 cm??? Mitral E Point Velocity 117.7 cm/s Mitral A Point Velocity 0.2 cm/s Mitral E to A Ratio 725.8 MV Deceleration Time 224.2 ms MV E' Velocity 6.9 cm/s Mitral E to MV E' Ratio 17.1 TR Peak Velocity 339.8 cm/s TR Peak Gradient 46.2 mmHg Right Atrial Pressure 20.0 mmHg Pulmonary Artery Systolic Pressu 66.2 mmHg Right Ventricular Systolic Press 66.2 mmHg FINDINGS Left Ventricle Moderately increased left ventricular wall thickness. Left ventricular cavity size normal. No obvious regional wall motion abnormalities. Left ventricular ejection fraction is estimated at 50-55 %. Right Ventricle Moderate right ventricular dilatation. Severe pulmonary hypertension. Right ventricular systolic pressure estimated at 66 mm hg. Right Atrium Mild right atrial dilatation. Left Atrium Severely increased left atrial volume. Mildly increased left atrial area. Mitral Valve Structurally normal mitral valve. Mild mitral annular calcification. Mild-to- moderate mitral regurgitation. Aortic Valve Trileaflet aortic valve. No aortic stenosis. Thickened aortic valve without stenosis. Tricuspid Valve Structurally normal tricuspid valve. Moderate tricuspid regurgitation. Pulmonic Valve Trace pulmonic regurgitation. Pericardium No pericardial effusion. Aorta Normal size aortic root and proximal ascending aorta. CONCLUSIONS Normal LV size preserved systolic function mild to moderate concentric LVH. Prominent right ventricle with moderate to severe pulmonary hypertension. Mitral annular calcification with moderate mitral regurgitation. Enlarged left atrium moderate tricuspid regurgitation. Aortic valve sclerosis without restriction. Previewed by: Dr. Sanam Reynolds MD (Electronically Signed) Final Date: 06 April 2023 12:03
[2023-04-06] MEDS: APIXABAN 5 MG TAB PO SCH ×2 (13:18→21:30)
--- NOTE | 2023-04-06 14:30 | P.GSCN ---
History of Present Illness Consult date: 04/06/23 History of present illness: CHIEF COMPLAINT: Abdominal pain HISTORY OF PRESENT ILLNESS: This is a 73-year-old female who presented with right-sided abdominal pain 2 weeks. She has been having hematuria and dysuria. She's been diagnosed with UTI. Patient is currently in the ICU. She did have elevated troponin. Patient was seen by cardiology and they concluded t o his acute kidney injury and her current infection. They've discontinued the IV heparin and resumed her Eliquis. Patient has a computed tomography scan abdomen and pelvis which did show rectal wall thickening and concerns for possible proctitis. Surgical service consulted in regards to proctitis. Patient denies any rectal pain. Denies any change in bowel habits. She does report that she is usually more constipated. She denies any blood in the stools. Last colonoscopy was 4 years ago which did reveal colon polyps. PAST MEDICAL HISTORY: Atrial Fibrillation, Diabetes Mellitus, Hypertension, CVA, spinal stenosis, CHF, thyroid disorder PAST SURGICAL HISTORY: cholecystectomy, Heart Catheterization, Hernia Repair, Orthopedic Surgery MEDICATIONS: See below ALLERGIES: See below SOCIAL HISTORY: No illicit drug use. REVIEW OF SYSTEMS: CONSTITUTIONAL: Denies fever or chills. HEENT: Denies blurred vision, vision changes, or eye pain. Denies hemoptysis CARDIOVASCULAR: Denies chest pain or pressure. RESPIRATORY: No shortness of breath. GASTROINTESTINAL: See HPI for pertinent findings HEMATOLOGIC: Denies bleeding disorders. GENITOURINARY: Denies any blood in urine or increased urinary frequency. SKIN: Denies pruitis. Denies rash. PHYSICAL EXAM: VITAL SIGNS: Reviewed GENERAL: Well-developed in no acute distress. ABDOMEN: Soft. Nondistended. Right-sided tenderness with palpation NEUROLOGIC: Alert and oriented. Cranial nerves II through XII grossly intact. LABORATORY DATA: IMAGING: Computed tomography scan abdomen and pelvis reports although urinary bladder is minimally distended there appears to be bladder wall thickening and surrounding fat stranding. Rectal wall thickening versus partial distention. Mild perirectal and perisacral fat stranding. Stranding may relate to generalized pelvic inflammatory changes as above or proctitis. Normal appendix. Colonic diverticulosis. ASSESSMENT: 1. Possible proctitis. Rectal wall thickening versus partial distention and mild perirectal and presacral fat stranding noted on computed tomography scan 2. UTI PLAN: -Recommend colonoscopy on 04/11/[address] Burrell -Hieuay to resume regular diet at this time -Continue antibiotics -Ok to resume Eliquis for now Thank you for this consultation Physician Level Glass Vial Filler note has been reviewed by physician. Signing provider agrees with the documented findings, assessment, and plan of care. 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 Spinal stenosis. Poss thyroid issue. Varicose veins,. CHF History of Any Multi-Drug Resistant Organisms: None Reported Past Surgical History: Cholecystectomy, Heart Catheterization, Hernia Repair, Orthopedic Surgery Additional Past Surgical History / Comment(s): removed bone in left foot, Umbilical hernia, CARDIOVERSION, total right knee replacement Past Anesthesia/Blood Transfusion Reactions: No Reported Reaction Past Psychological History: Anxiety, Depression Smoking Status: Former smoker Past Alcohol Use History: None Reported Additional Past Alcohol Use History / Comment(s): Smoked 20 years, 1 ppd, quit 2002 Past Drug Use History: None Reported Additional Drug Use History / Comment(s): CBD gummies occ for pain, last 1 month ago - Past Family History Father History Unknown: Yes Sister(s) Family Medical History: Cancer Additional Family Medical History / Comment(s): breast cancer Mother Family Medical History: Deep Vein Thrombosis (DVT) Medications and Allergies Home Medications Medication Instructions Recorded Confirmed Type Folic Acid 1 mg PO DAILY@1200 09/07/22 04/05/23 History metHOTREXate sodium [Methotrexate] 20 mg PO MO 10/16/22 04/05/23 History Omeprazole 40 mg PO DAILY 30 Days #30 cap 12/10/22 04/05/23 Rx Apixaban [Eliquis] 5 mg PO BID@0800,1700 02/14/23 04/05/23 History Cholecalciferol [Vitamin D3 (25 25 mcg PO DAILY 02/14/23 04/05/23 History Mcg = 1000 Iu)] Docusate [Colace] 100 mg PO BID@0800,1700 02/14/23 04/05/23 History Empagliflozin [Jardiance] 10 mg PO DAILY@0600 02/14/23 04/05/23 History Escitalopram Oxalate [Lexapro] 10 mg PO DAILY 02/14/23 04/05/23 History Ferrous Sulfate [Iron (65 MG 325 mg PO DAILY 02/14/23 04/05/23 History Elemental)] Furosemide [Lasix] 20 mg PO DAILY 02/14/23 04/05/23 History INSULIN LISPRO (HumaLOG) [humaLOG] See Protocol SQ ACHS 02/14/23 04/05/23 History Isosorbide Mononitrate ER [Imdur] 30 mg PO DAILY 02/14/23 04/05/23 History Lactulose 10 gm PO BID@0800,1700 02/14/23 04/05/23 History Metoprolol Tartrate [Lopressor] 50 mg PO BID@0800,1700 02/14/23 04/05/23 History Na Phos,M-B/Na Phos,Di-Ba [Fleet 133 ml RECTAL DAILY PRN 02/14/23 04/05/23 History Adult] Nitroglycerin Sl Tabs [Nitrostat] 0.4 mg PO Q5M PRN 02/14/23 04/05/23 History Spironolactone 25 mg PO DAILY 02/14/23 04/05/23 History azaTHIOprine [Imuran] 50 mg PO TID@0600,1400,2200 02/14/23 04/05/23 History bisacodyL [Dulcolax] 10 mg RECTAL DAILY PRN 02/14/23 04/05/23 History hydrALAZINE HCL [Apresoline] 50 mg PO BID 02/14/23 04/05/23 History polyethylene glycoL 3350 [Miralax] 17 gm PO DAILY PRN 02/14/23 04/05/23 History traZODone HCL [Desyrel] 50 mg PO HS 02/14/23 04/05/23 History HYDROcodone/APAP 10-325MG [[place] 1 tab PO Q6HR PRN #6 tab 02/18/23 04/05/23 Rx 10-325] Cyanocobalamin [Vitamin B-12] 500 mcg PO DAILY 04/05/23 04/05/23 History Levofloxacin [Levaquin] 500 mg PO DAILY 04/05/23 04/05/23 History Mag Hydrox/Al Hydrox/Simeth 30 ml PO Q6H PRN 04/05/23 04/05/23 History [Maalox] Nicotine Polacrilex [Nicotine Gum] 4 mg BC BID PRN 04/05/23 04/05/23 History Oxycodone Myristate [Xtampza ER] 9 mg PO Q12H 04/05/23 04/05/23 History Sennosides [Senokot] 17.2 mg PO HS 04/05/23 04/05/23 History Allergies Allergy/AdvReac Type Severity Reaction Status Date / Time No Known Allergies Allergy Verified 04/05/23 08:12 Surgical - Exam Vital Signs Temp Pulse Resp BP Pulse Ox 98.8 F 94 22 138/97 96 04/04/23 22:03 04/04/23 22:03 04/04/23 22:03 04/04/23 22:03 04/04/23 22:03 Results - Labs 04/06/23 02:55 04/06/23 02:55 Abnormal Lab Results - Last 24 Hours (Table) 04/05/23 04/05/23 04/05/23 Range/Units 17:08 22:14 22:17 RBC (3.80-5.40) m/uL Hgb (11.4-16.0) gm/dL Hct (34.0-46.0) % RDW (11.5-15.5) % APTT (22.0-30.0) sec Carbon Dioxide (22-30) mmol/L BUN (7-17) mg/dL Creatinine (0.52-1.04) mg/dL Glucose (74-99) mg/dL POC Glucose (mg/dL) 119 H 183 H (70-110) mg/dL Troponin I 0.081 H* (0.000-0.034) ng/mL Total Protein (6.3-8.2) g/dL Albumin (3.5-5.0) g/dL 04/06/23 04/06/23 04/06/23 Range/Units 00:54 02:55 02:55 RBC 3.23 L (3.80-5.40) m/uL Hgb 9.8 L (11.4-16.0) gm/dL Hct 31.3 L (34.0-46.0) % RDW 17.9 H (11.5-15.5) % APTT (22.0-30.0) sec Carbon Dioxide 20 L (22-30) mmol/L BUN 27 H (7-17) mg/dL Creatinine 1.65 H (0.52-1.04) mg/dL Glucose 131 H (74-99) mg/dL POC Glucose (mg/dL) (70-110) mg/dL Troponin I 0.136 H* (0.000-0.034) ng/mL Total Protein 5.7 L (6.3-8.2) g/dL Albumin 3.1 L (3.5-5.0) g/dL 04/06/23 04/06/23 04/06/23 Range/Units 02:55 03:51 07:28 RBC (3.80-5.40) m/uL Hgb (11.4-16.0) gm/dL Hct (34.0-46.0) % RDW (11.5-15.5) % APTT 50.5 H 43.4 H (22.0-30.0) sec Carbon Dioxide (22-30) mmol/L BUN (7-17) mg/dL Creatinine (0.52-1.04) mg/dL Glucose (74-99) mg/dL POC Glucose (mg/dL) 136 H (70-110) mg/dL Troponin I (0.000-0.034) ng/mL Total Protein (6.3-8.2) g/dL Albumin (3.5-5.0) g/dL Microbiology - Last 24 Hours (Table) 04/05/23 00:48 Urine Culture - Preliminary Urine,Voided Presumptive Staph aureus Diabetes panel 04/06/23 Range/Units 02:55 Sodium 137 (137-145) mmol/L Potassium 3.7 (3.5-5.1) mmol/L Chloride 105 (98-107) mmol/L Carbon Dioxide 20 L (22-30) mmol/L BUN 27 H (7-17) mg/dL Creatinine 1.65 H (0.52-1.04) mg/dL Glucose 131 H (74-99) mg/dL Calcium 9.3 (8.4-10.2) mg/dL AST 22 (14-36) U/L ALT 10 (4-34) U/L Alkaline Phosphatase 91 (38-126) U/L Total Protein 5.7 L (6.3-8.2) g/dL Albumin 3.1 L (3.5-5.0) g/dL Calcium panel 04/06/23 Range/Units 02:55 Calcium 9.3 (8.4-10.2) mg/dL Albumin 3.1 L (3.5-5.0) g/dL Pituitary panel 04/06/23 Range/Units 02:55 Sodium 137 (137-145) mmol/L Potassium 3.7 (3.5-5.1) mmol/L Chloride 105 (98-107) mmol/L Carbon Dioxide 20 L (22-30) mmol/L BUN 27 H (7-17) mg/dL Creatinine 1.65 H (0.52-1.04) mg/dL Glucose 131 H (74-99) mg/dL Calcium 9.3 (8.4-10.2) mg/dL Adrenal panel 04/06/23 Range/Units 02:55 Sodium 137 (137-145) mmol/L Potassium 3.7 (3.5-5.1) mmol/L Chloride 105 (98-107) mmol/L Carbon Dioxide 20 L (22-30) mmol/L BUN 27 H (7-17) mg/dL Creatinine 1.65 H (0.52-1.04) mg/dL Glucose 131 H (74-99) mg/dL Calcium 9.3 (8.4-10.2) mg/dL Total Bilirubin 0.5 (0.2-1.3) mg/dL AST 22 (14-36) U/L ALT 10 (4-34) U/L Alkaline Phosphatase 91 (38-126) U/L Total Protein 5.7 L (6.3-8.2) g/dL Albumin 3.1 L (3.5-5.0) g/dL
[2023-04-06] MEDS: HYDROcodone/APAP 10-325MG 1 EACH TAB PO PRN (16:28)
[2023-04-06 21:07] LABS: Glucose,Whole Blood 150 mg/dL (70-110)
[2023-04-06] MEDS: traZODone HCL 50 MG TAB PO SCH (21:31)
[2023-04-06] MEDS: HYDROmorphone 1 MG/ML 1 ML SYRINGE IVP PRN (21:32)
[2023-04-06] MEDS: SENNOSIDES 8.6 MG TAB PO SCH (21:42)
[2023-04-07] MEDS: metroNIDAZOLE-NS PMX 500 MG in SALINE 1 100ML.BAG IVPB SCH ×3 (00:36→16:03)
[2023-04-07 05:14] LABS: Glucose,Whole Blood 134 mg/dL (70-110)
[2023-04-07] MEDS: azaTHIOprine 50 MG TAB PO SCH ×3 (06:10→20:23)
[2023-04-07] MEDS: HYDROcodone/APAP 10-325MG 1 EACH TAB PO PRN (06:10)
--- NOTE | 2023-04-07 06:24 | P.PN ---
Subjective Progress Note Date: 04/06/23 Patient is a 73-year-old female with known history of hypertension, diabetes type 2, atrial fibrillation on anticoagulation with Eliquis, history of CVA with minimal left-sided weakness and spinal stenosis, anxiety/depression, prior history of smoking, chronic pain patient presented to ER with complaints of abdominal pain mainly in the right lower quadrant. Patient has been having pain for the past 3 days. she was also having hematuria and was seen by her physician and was started antibiotics in the form of Levaquin. Patient presented to ER with out significant improvement. Patient otherwise denies any complaints of fever. No chills. Does have nausea and also some vomiting. No complaints of worsening back pain flank pain. No complaints of diarrhea. Patient does have history of constipation. On admission CT of the abdomen pelvis showed urinary bladder is minimally distended and bladder wall thickening and surrounding fat stranding correlate for cystitis. Rectal wall thickening versus possible distention. Mild perirectal and sacral fat stranding may be related to generalized pelvic inflammatory changes or proctitis. Laboratory data showed WBC 9.7 hemoglobin 10.8 and platelets 248 Sodium 139 potassium 3.7 chloride 103 bicarb is 23 BUN 20 and creatinine 1.23. Blood sugar 140 Liver edge is not elevated. Total bilirubin 1.2 amylase 47 lipase 50 and urinalysis showed turbid with 2+ protein, 4+ glucose, large blood, large leukocyte esterase and elevated RBCs and WBCs. [id number] Patient is seen in follow-up in the ICU as an overflow from 3 S. being started on amiodarone drip and patient is continued on heparin with cardiology along with general surgery and infectious disease following. Urine cultures thus far showing presumptive staph aureus and patient is maintained on ceftriaxone along with Flagyl. Patient did have an elevated troponin and was transferred over h ere for further monitoring and adjustments to medications being made and heparin is being discontinued per cardiology. Patient continues on antibiotics and being adjusted to vancomycin per infectious disease and we'll monitor and await for finalized cultures. Patient reports to feeling improved from yesterday although continues with generalized weakness and feeling unwell. Gen. surgery for evaluation of abdominal pain. Patient is currently afebrile with no reports of chest pain or shortness of breath. Patient currently sitting up eating in bed at this time. Awaiting transfer to [facility] of the bed is available Review of systems: Constitutional: No reports of fatigue, fever, or chills Cardiovascular: No reports of chest pain or palpitations Respiratory: No reports of shortness of breath or cough GI: No reports of nausea, vomiting, or diarrhea : No reports of dysuria or retention Neurovascular: reports of generalized weakness All medications have been reviewed PHYSICAL EXAMINATION: Patient is sitting up in the bed. Appears to be in no acute distress. awake alert and oriented.. Obese HEENT: Normocephalic. Neck is supple. Pupils reactive. Nostrils clear. Oral cavity is moist. Neck reveals no JVD, carotid bruits, or thyromegaly. CHEST EXAMINATION: Trachea is central. Symmetrical expansion. Lung nielson clear to auscultation and percussion. CARDIAC: Normal S1, S2 with no gallops. No murmurs ABDOMEN: Soft. Bowel sounds present. Patient does have generalized tenderness. Guarding. No rigidity.. No abdominal bruits. Extremities: reveal trace pedal edema. No clubbing or cyanosis Neurologically awake, alert, oriented x3. Able to move all extremities. Minimal left-sided weakness. Skin: No rash or skin lesions. Psychiatric: Cooperative. Non-suicidal Musculoskeletal: No joint swelling or deformity. Assessment: Acute urinary tract infection with dysuria and hematuria. Presumptive staph aureus growing in clusters Possible Pelvic inflammatory disease. Patient does have generalized lower abdominal pain mainly right lower quadrant. CT findings of generalized pelvic inflammatory changes versus proctitis. Acute kidney injury likely prerenal. Baseline creatinine 0.8 Atrial fibrillation on anticoagulation with Eliquis Hypertension Diabetes type 2 insulin-dependent History of CVA with right-sided mild residual weakness Rheumatoid arthritis patient is on methotrexate and Imuran Anxiety/depression Prior history of smoking History of CBD Gummies use for pain Chronic pain Constipation GI bleed prophylaxis with PPI DVT prophylaxis, patient is already on Eliquis Obesity with a BMI of 30.2 Full code Plan: Patient will be continued on gentle IV hydration. Continue with antibiotics and was transitioned to vancomycin per ID recommendations, continue Flagyl . Urine cultures preliminary showing presumptive staph aureus General surgery evaluated the patient recommending colonoscopy which is scheduled for Tuesday Patient was moved to the ICU as a 3 S. overflow for closer monitoring and is currently a downgrade awaiting transfer to [facility] Cardiology has evaluated the patient is patient was started on heparin and this has been discontinued and eliquis has been resumed and adjustments to medications being made Continue monitoring Accu-Cheks before meals and at bedtime and will continue with insulin/sliding scale regimen Due to multiple complex medical issues, prognosis is guarded The impression and plan of care has been dictated by Any Peguero, Nurse Practitioner as directed. Dr. Buffy MD I have performed a history and examination and MDM of this patient, discussed the same with the dictator, and agree with the dictator's assessment and plan as written ,documented as a scribe. Based on total visit time, I have performed more than 50% of the visit. Objective - Vital Signs Vital signs: Vital Signs Temp 98.9 F 04/06/23 08:00 Pulse 96 04/06/23 09:00 Resp 13 04/06/23 09:00 BP 141/94 04/06/23 09:00 Pulse Ox 95 04/06/23 09:00 FiO2 Intake & Output 04/05/23 04/06/23 04/06/23 18:59 06:59 18:59 Intake Total 600 600 Balance 600 600 Intake: Intake, IV Titration 600 600 Amount Sodium Chloride 0.9% 1, 600 000 ml @ 75 mls/hr IV . [id number] [facility] Rx#:[id number] Sodium Chloride 0.9% 1, 600 000 ml @ 75 mls/hr IV . [id number] [facility] Rx#:[id number] Other: Voiding Method External Catheter Bedside Commode Bedside Commode Diaper External Catheter # Voids 1 # Bowel Movements 1 - Labs CBC & Chem 7: 04/06/23 02:55 04/06/23 02:55 Labs: Abnormal Lab Results - Last 24 Hours (Table) 04/05/23 04/05/23 04/05/23 Range/Units 12:06 17:08 22:14 RBC (3.80-5.40) m/uL Hgb (11.4-16.0) gm/dL Hct (34.0-46.0) % RDW (11.5-15.5) % APTT (22.0-30.0) sec Carbon Dioxide (22-30) mmol/L BUN (7-17) mg/dL Creatinine (0.52-1.04) mg/dL Glucose (74-99) mg/dL POC Glucose (mg/dL) 142 H 119 H (70-110) mg/dL Troponin I 0.081 H* (0.000-0.034) ng/mL Total Protein (6.3-8.2) g/dL Albumin (3.5-5.0) g/dL 04/05/23 04/06/23 04/06/23 Range/Units 22:17 00:54 02:55 RBC 3.23 L (3.80-5.40) m/uL Hgb 9.8 L (11.4-16.0) gm/dL Hct 31.3 L (34.0-46.0) % RDW 17.9 H (11.5-15.5) % APTT (22.0-30.0) sec Carbon Dioxide (22-30) mmol/L BUN (7-17) mg/dL Creatinine (0.52-1.04) mg/dL Glucose (74-99) mg/dL POC Glucose (mg/dL) 183 H (70-110) mg/dL Troponin I 0.136 H* (0.000-0.034) ng/mL Total Protein (6.3-8.2) g/dL Albumin (3.5-5.0) g/dL 04/06/23 04/06/23 04/06/23 Range/Units 02:55 02:55 03:51 RBC (3.80-5.40) m/uL Hgb (11.4-16.0) gm/dL Hct (34.0-46.0) % RDW (11.5-15.5) % APTT 50.5 H (22.0-30.0) sec Carbon Dioxide 20 L (22-30) mmol/L BUN 27 H (7-17) mg/dL Creatinine 1.65 H (0.52-1.04) mg/dL Glucose 131 H (74-99) mg/dL POC Glucose (mg/dL) 136 H (70-110) mg/dL Troponin I (0.000-0.034) ng/mL Total Protein 5.7 L (6.3-8.2) g/dL Albumin 3.1 L (3.5-5.0) g/dL 04/06/23 Range/Units 07:28 RBC (3.80-5.40) m/uL Hgb (11.4-16.0) gm/dL Hct (34.0-46.0) % RDW (11.5-15.5) % APTT 43.4 H (22.0-30.0) sec Carbon Dioxide (22-30) mmol/L BUN (7-17) mg/dL Creatinine (0.52-1.04) mg/dL Glucose (74-99) mg/dL POC Glucose (mg/dL) (70-110) mg/dL Troponin I (0.000-0.034) ng/mL Total Protein (6.3-8.2) g/dL Albumin (3.5-5.0) g/dL Microbiology - Last 24 Hours (Table) 04/05/23 00:48 Urine Culture - Preliminary Urine,Voided Presumptive Staph aureus
[2023-04-07 06:56] LABS: African American GFR (CKD) 73 (>60 ml/min/1.73 sqM); Non-African American GFR(CKD) 63 (>60 ml/min/1.73 sqM)
[2023-04-07] MEDS ORDERED: VANCOMYCIN 1,250 MG in SODIUM CHLORIDE 0.9% 250 ML IVPB ONE (08:00)
[2023-04-07] MEDS: OXYCODONE MYRISTATE 9 MG PO SCH ×2 (08:26→20:01)
[2023-04-07] MEDS: ISOSORBIDE MONONITRATE ER 30 MG TAB.ER.24H PO SCH (08:41)
[2023-04-07] MEDS: FUROSEMIDE 20 MG TAB PO SCH (08:41)
[2023-04-07] MEDS: DOCUSATE 100 MG CAP PO SCH ×3 (08:41→16:05)
[2023-04-07] MEDS: CYANOCOBALAMIN 500 MCG TAB PO SCH (08:42)
[2023-04-07] MEDS: APIXABAN 5 MG TAB PO SCH ×2 (08:42→09:16)
[2023-04-07] MEDS: SPIRONOLACTONE 25 MG TAB PO SCH (08:42)
[2023-04-07] MEDS: PANTOPRAZOLE 40 MG TABLET PO SCH (08:42)
[2023-04-07] MEDS: LACTULOSE 20 GM/30 ML CUP PO SCH ×3 (08:42→16:05)
[2023-04-07] MEDS: DOXYCYCLINE 100 MG CAP PO SCH ×2 (08:43→20:23)
[2023-04-07] MEDS: ESCITALOPRAM 10 MG TAB PO SCH (08:44)
[2023-04-07] MEDS: METOPROLOL TARTRATE 50 MG TAB PO SCH ×3 (08:47→17:19)
--- NOTE | 2023-04-07 09:35 | P.PN ---
Subjective HISTORY OF PRESENT ILLNESS: This is a 73-year-old female who follows in the office with Dr. Fatima. Patient is admitted to the hospital secondary to urinary tract infection. She is being followed by infectious disease and receiving IV antibiotics. This morning, the patient denies chest pain or pressure. She denies shortness of breath. She is having gross hematuria this morning. Telemetry reveals atrial fibrillation with a heart rate in the 90s. PHYSICAL EXAM: VITAL SIGNS: Reviewed. GENERAL: Well-developed in no acute distress. NECK: Supple. No JVD or thyromegaly LUNGS: Respirations even and unlabored. Lungs essentially clear to auscultation bilaterally. HEART: Irregular rate and rhythm. S1 and S2 heard. EXTREMITIES: Normal range of motion. No clubbing or cyanosis. Peripheral pulses intact. No lower extremity edema ASSESSMENT: Urinary tract infection Acute kidney injury, resolved Persistent atrial fibrillation with mild RVR Elevated troponin, likely secondary to LOPEZ and infection Hypertension Diabetes History of CVA Rectal wall thickening, possible proctitis, per CT scan Gross hematuria PLAN: Continue current cardiac medications Hold Eliquis secondary to gross hematuria this morning. Begin subcu heparin. Recommend urology consult Increase metoprolol to 100 mg twice a day Continue telemetry monitoring Discontinue hydralazine secondary to soft blood pressures Patient scheduled for colonoscopy on 04/11/2023 with general surgery Further recommendations pending patient's course Nurse practitioner note has been reviewed by physician. Signing provider agrees with the documented findings, assessment, and plan of care. Objective - Vital Signs Vital signs: Vital Signs Temp 98.3 F 04/07/23 02:25 Pulse 59 L 04/07/23 02:25 Resp 21 04/07/23 02:25 BP 95/62 04/07/23 02:25 Pulse Ox 97 04/07/23 02:25 FiO2 Intake & Output 04/06/23 04/07/23 04/07/23 18:59 06:59 18:59 Intake Total 400 Output Total 600 Balance -200 Weight 77 kg Intake: Oral 400 Output: Urine 600 Other: Voiding Method Bedside Commode External Catheter External Catheter # Voids 5 # Bowel Movements 4 4 - Labs CBC & Chem 7: 04/06/23 02:55 04/07/23 05:30 Labs: Abnormal Lab Results - Last 24 Hours (Table) 01/03/24 01/04/24 Range/Units 21:05 05:10 POC Glucose (mg/dL) 150 H 134 H (70-110) mg/dL Microbiology - Last 24 Hours (Table) 04/05/23 00:48 Urine Culture - Preliminary Urine,Voided Presumptive Staph aureus
[2023-04-07 11:25] LABS: Glucose,Whole Blood 142 mg/dL (70-110)
--- NOTE | 2023-04-07 12:24 | P.PN ---
Subjective Progress Note Date: 04/07/23 CHIEF COMPLAINT: abdominal pain HISTORY OF PRESENT ILLNESS: Patient transferred out of the ICU yesterday. Patient has right-sided abdominal pain. No bowel movements. She does report some nausea. Appetite is decreased. Afebrile. Mildly tachycardic. Eliquis on hold. Patient still having hematuria. PHYSICAL EXAM: VITAL SIGNS: Reviewed. GENERAL: Well-developed in no acute distress. HEENT: No sclera icterus. Extraocular movements grossly intact. Moist buccal mucosa. Head is atraumatic, normocephalic. ABDOMEN: Soft. Nondistended. Nontender. NEUROLOGIC: Alert and oriented. Cranial nerves II through XII grossly intact. ASSESSMENT: 1. Possible proctitis. Rectal wall thickening versus partial distention and mild perirectal and presacral fat stranding noted on computed tomography scan 2. UTI PLAN: -Recommend colonoscopy on 04/11/[address] Burrell -Continue regular diet -Continue antibiotics Per ID service Physician Electric Hoist Operator note has been reviewed by physician. Signing provider agrees with the documented findings, assessment, and plan of care. Objective - Vital Signs Vital signs: Vital Signs Temp 99.0 F 04/07/23 07:19 Pulse 112 H 04/07/23 07:19 Resp 19 04/07/23 07:19 BP 183/95 04/07/23 07:19 Pulse Ox 95 04/07/23 07:19 FiO2 Intake & Output 04/06/23 04/07/23 04/07/23 18:59 06:59 18:59 Intake Total 400 Output Total 600 Balance -200 Weight 77 kg Intake: Oral 400 Output: Urine 600 Other: Voiding Method Bedside Commode External Catheter External Catheter # Voids 5 # Bowel Movements 4 4 - Labs CBC & Chem 7: 04/06/23 02:55 04/07/23 05:30 Labs: Abnormal Lab Results - Last 24 Hours (Table) 04/06/23 04/07/23 Range/Units 21:05 05:10 POC Glucose (mg/dL) 150 H 134 H (70-110) mg/dL Microbiology - Last 24 Hours (Table) 04/05/23 00:48 Urine Culture - Preliminary Urine,Voided Presumptive Staph aureus
[2023-04-07] MEDS: SODIUM CHLORIDE 0.9% 1,000 ML IV SCH (13:38)
[2023-04-07] MEDS: HYDROmorphone 1 MG/ML 1 ML SYRINGE IVP PRN ×2 (13:41→22:31)
--- NOTE | 2023-04-07 15:27 | P.PN ---
Subjective Progress Note Date: 04/07/23 Patient is a 73-year-old female with known history of hypertension, diabetes type 2, atrial fibrillation on anticoagulation with Eliquis, history of CVA with minimal left-sided weakness and spinal stenosis, anxiety/depression, prior history of smoking, chronic pain patient presented to ER with complaints of abdominal pain mainly in the right lower quadrant. Patient has been having pain for the past 3 days. she was also having hematuria and was seen by her physician and was started antibiotics in the form of Levaquin. Patient presented to ER with out significant improvement. Patient otherwise denies any complaints of fever. No chills. Does have nausea and also some vomiting. No complaints of worsening back pain flank pain. No complaints of diarrhea. Patient does have history of constipation. On admission CT of the abdomen pelvis showed urinary bladder is minimally distended and bladder wall thickening and surrounding fat stranding correlate for cystitis. Rectal wall thickening versus possible distention. Mild perirectal and sacral fat stranding may be related to generalized pelvic inflammatory changes or proctitis. Laboratory data showed WBC 9.7 hemoglobin 10.8 and platelets 248 Sodium 139 potassium 3.7 chloride 103 bicarb is 23 BUN 20 and creatinine 1.23. Blood sugar 140 Liver edge is not elevated. Total bilirubin 1.2 amylase 47 lipase 50 and urinalysis showed turbid with 2+ protein, 4+ glucose, large blood, large leukocyte esterase and elevated RBCs and WBCs. [id number] Patient is seen in follow-up in the ICU as an overflow from 3 S. being started on amiodarone drip and patient is continued on heparin with cardiology along with general surgery and infectious disease following. Urine cultures thus far showing presumptive staph aureus and patient is maintained on ceftriaxone along with Flagyl. Patient did have an elevated troponin and was transferred over h ere for further monitoring and adjustments to medications being made and heparin is being discontinued per cardiology. Patient continues on antibiotics and being adjusted to vancomycin per infectious disease and we'll monitor and await for finalized cultures. Patient reports to feeling improved from yesterday although continues with generalized weakness and feeling unwell. Gen. surgery for evaluation of abdominal pain. Patient is currently afebrile with no reports of chest pain or shortness of breath. Patient currently sitting up eating in bed at this time. Awaiting transfer to [facility] of the bed is available 04/07/2023 Patient is seen and evaluated in follow-up this morning with multiple medical consultations following including infectious disease, general surgery, and cardiology. Patient noted to have gross hematuria in the airway device and had been recently resumed on eliquis and will hold this for now and continue with subcutaneous heparin and will also consult urology and appreciate input and recommendations. Patient continues with diffuse abdominal pain and reports pain and burning with urination and was evaluated by general surgery recommending colonoscopy on Tuesday. Preliminary cultures finalized showing MRSA and patient is maintained on ceftriaxone along with Flagyl. Patient did receive a dose of vancomycin. Patient is currently afebrile with no reported chest pain or shortness of breath. Blood pressures are soft and medications are being adjusted per cardiology. Review of systems: Constitutional: No reports of fatigue, fever, or chills Cardiovascular: No reports of chest pain or palpitations Respiratory: No reports of shortness of breath or cough GI: No reports of nausea, vomiting, or diarrhea, reports continued abdominal pain although less intense : reports of dysuria and pain with urination Neurovascular: reports of generalized weakness All medications have been reviewed PHYSICAL EXAMINATION: Patient is sitting up in the chair. Appears to be in no acute distress. awake alert and oriented.. Obese HEENT: Normocephalic. Neck is supple. Pupils reactive. Nostrils clear. Oral cavity is moist. Neck reveals no JVD, carotid bruits, or thyromegaly. CHEST EXAMINATION: Trachea is central. Symmetrical expansion. Lung nielson clear to auscultation and percussion. CARDIAC: Normal S1, S2 with no gallops. No murmurs ABDOMEN: Soft. Bowel sounds present. Patient does have generalized tenderness. No Guarding. No rigidity.. No abdominal bruits. Extremities: reveal trace pedal edema. No clubbing or cyanosis Neurologically awake, alert, oriented x3. Able to move all extremities. Minimal left-sided weakness. Skin: No rash or skin lesions. Psychiatric: Cooperative. Non-suicidal Musculoskeletal: No joint swelling or deformity. Assessment: Acute urinary tract infection with dysuria and hematuria. Cultures finalized showing MRSA Possible Pelvic inflammatory disease. Patient does have generalized lower abdominal pain mainly right lower quadrant. CT findings of generalized pelvic inflammatory changes versus proctitis. Acute kidney injury likely prerenal. Baseline creatinine 0.8 Atrial fibrillation on anticoagulation with Eliquis although having increased hematuria and will hold anticoagulation for now, continue subcutaneous heparin per cardiology Hypertension Diabetes type 2 insulin-dependent History of CVA with right-sided mild residual weakness Rheumatoid arthritis patient is on methotrexate and Imuran Anxiety/depression Prior history of smoking History of CBD Gummies use for pain Chronic pain Constipation GI bleed prophylaxis with PPI DVT prophylaxis, subcutaneous heparin Obesity with a BMI of 32.1 Full code Plan: Patient will be continued on gentle IV hydration. Continue with antibiotics with infectious disease following. Cultures finalized showing MRSA and patient is continued on ceftriaxone and Flagyl. Patient did receive a dose of vancomycin yesterday General surgery evaluated the patient recommending colonoscopy which is scheduled for Tuesday04/11/2023 Patient is currently on a medical surgical unit and adjustments to medications being done per cardiology as blood pressures are on the softer side Patient with noted gross hematuria in the purewick device and patient continues to have suprapubic pain and tenderness and pain with burning in urination. Holding anticoagulation and patient is maintained on subcutaneous heparin for now and will consult urology and appreciate input and recommendations Continue telemetry monitoring Continue monitoring Accu-Cheks before meals and at bedtime and will continue with insulin/sliding scale regimen Due to multiple complex medical issues, prognosis is guarded The impression and plan of care has been dictated by Any Peguero, Nurse Practitioner as directed. Dr. Buffy MD I have performed a history and examination and MDM of this patient, discussed the same with the dictator, and agree with the dictator's assessment and plan as written ,documented as a scribe. Based on total visit time, I have performed more than 50% of the visit. Objective - Vital Signs Vital signs: Vital Signs Temp 99.0 F 04/07/23 07:19 Pulse 112 H 04/07/23 07:19 Resp 19 04/07/23 07:19 BP 183/95 04/07/23 07:19 Pulse Ox 95 04/07/23 07:19 FiO2 Intake & Output 04/06/23 04/07/23 04/07/23 18:59 06:59 18:59 Intake Total 400 Output Total 600 Balance -200 Weight 77 kg Intake: Oral 400 Output: Urine 600 Other: Voiding Method Bedside Commode External Catheter External Catheter # Voids 5 # Bowel Movements 4 4 - Labs CBC & Chem 7: 04/06/23 02:55 04/07/23 05:30 Labs: Abnormal Lab Results - Last 24 Hours (Table) 04/06/23 04/07/23 Range/Units 21:05 05:10 POC Glucose (mg/dL) 150 H 134 H (70-110) mg/dL Microbiology - Last 24 Hours (Table) 04/05/23 00:48 Urine Culture - Preliminary Urine,Voided Presumptive Staph aureus
[2023-04-07 16:16] LABS: Glucose,Whole Blood 129 mg/dL (70-110)
--- NOTE | 2023-04-07 16:47 | P.PN ---
Subjective Progress Note Date: 04/06/23 Principal diagnosis: Reason for follow-up is urine tract infection and a question of proctitis. Patient is a 73-year-old -Polish female with a past medical history significant for diabetes mellitus hypertension atrial fibrillation CVA spinal stenosis history of smoking patient was brought into the hospital for evaluation of right-sided abdominal pain, also have urinary symptoms did have a fever CT abdominal pelvis with bladder wall thickening and surrounding fat stranding and there was question of possible mild perirectal and presacral fat stranding. On today's evaluation that is 04/06/2023, the patient denies having any fever or any chills patient developed A-fib for the patient was transferred onto the telemetry floor patient denies having any chest pain shortness of breath or cough no nausea vomiting still complaining of some lower abdominal discomfort and did have hematuria. The patient did have vital of 4.9, creatinine is 1.65 troponin mildly elevated u rine culture showing Staph aureus sensitivities pending Objective - Vital Signs Vital signs: Vital Signs Temp 98.9 F 04/06/23 08:00 Pulse 92 04/06/23 11:00 Resp 14 04/06/23 11:00 BP 120/86 04/06/23 11:00 Pulse Ox 97 04/06/23 11:00 FiO2 Intake & Output 04/05/23 04/06/23 04/06/23 18:59 06:59 18:59 Intake Total 600 600 Balance 600 600 Intake: Intake, IV Titration 600 600 Amount Sodium Chloride 0.9% 1, 600 000 ml @ 75 mls/hr IV . [id number] [facility] Rx#:[id number] Sodium Chloride 0.9% 1, 600 000 ml @ 75 mls/hr IV . [id number] [facility] Rx#:[id number] Other: Voiding Method External Catheter Bedside Commode Bedside Commode Diaper External Catheter # Voids 1 # Bowel Movements 1 - Exam GENERAL DESCRIPTION: An elderly female lying in bed in no distress RESPIRATORY SYSTEM: Unlabored breathing , decreased breath sounds at bases HEART: S1 S2 regular rate and rhythm , ABDOMEN: Soft , no tenderness EXTREMITIES: No edema feet - Labs CBC & Chem 7: 04/06/23 02:55 04/07/23 05:30 Labs: Abnormal Lab Results - Last 24 Hours (Table) 04/05/23 04/05/23 04/05/23 Range/Units 12:06 17:08 22:14 RBC (3.80-5.40) m/uL Hgb (11.4-16.0) gm/dL Hct (34.0-46.0) % RDW (11.5-15.5) % APTT (22.0-30.0) sec Carbon Dioxide (22-30) mmol/L BUN (7-17) mg/dL Creatinine (0.52-1.04) mg/dL Glucose (74-99) mg/dL POC Glucose (mg/dL) 142 H 119 H (70-110) mg/dL Troponin I 0.081 H* (0.000-0.034) ng/mL Total Protein (6.3-8.2) g/dL Albumin (3.5-5.0) g/dL 04/05/23 04/06/23 04/06/23 Range/Units 22:17 00:54 02:55 RBC 3.23 L (3.80-5.40) m/uL Hgb 9.8 L (11.4-16.0) gm/dL Hct 31.3 L (34.0-46.0) % RDW 17.9 H (11.5-15.5) % APTT (22.0-30.0) sec Carbon Dioxide (22-30) mmol/L BUN (7-17) mg/dL Creatinine (0.52-1.04) mg/dL Glucose (74-99) mg/dL POC Glucose (mg/dL) 183 H (70-110) mg/dL Troponin I 0.136 H* (0.000-0.034) ng/mL Total Protein (6.3-8.2) g/dL Albumin (3.5-5.0) g/dL 04/06/23 04/06/23 04/06/23 Range/Units 02:55 02:55 03:51 RBC (3.80-5.40) m/uL Hgb (11.4-16.0) gm/dL Hct (34.0-46.0) % RDW (11.5-15.5) % APTT 50.5 H (22.0-30.0) sec Carbon Dioxide 20 L (22-30) mmol/L BUN 27 H (7-17) mg/dL Creatinine 1.65 H (0.52-1.04) mg/dL Glucose 131 H (74-99) mg/dL POC Glucose (mg/dL) 136 H (70-110) mg/dL Troponin I (0.000-0.034) ng/mL Total Protein 5.7 L (6.3-8.2) g/dL Albumin 3.1 L (3.5-5.0) g/dL 04/06/23 Range/Units 07:28 RBC (3.80-5.40) m/uL Hgb (11.4-16.0) gm/dL Hct (34.0-46.0) % RDW (11.5-15.5) % APTT 43.4 H (22.0-30.0) sec Carbon Dioxide (22-30) mmol/L BUN (7-17) mg/dL Creatinine (0.52-1.04) mg/dL Glucose (74-99) mg/dL POC Glucose (mg/dL) (70-110) mg/dL Troponin I (0.000-0.034) ng/mL Total Protein (6.3-8.2) g/dL Albumin (3.5-5.0) g/dL Microbiology - Last 24 Hours (Table) 04/05/23 00:48 Urine Culture - Preliminary Urine,Voided Presumptive Staph aureus Assessment and Plan (1) UTI (urinary tract infection) Current Visit: Yes Status: Acute Code(s): N39.0 - URINARY TRACT INFECTION, SITE NOT SPECIFIED SNOMED Code(s): 24690632 Plan: 1patient presented hospital with abdominal pain hematuria burning of urination this patient who did have a significantly positive UA with evidence of cystitis on the CT did not mention any hydronephrosis or renal stone. 2there was also concern for some perirectal inflammation however the patient denies having any hematochezia or diarrhea 3blood cultures currently pending urine showing Staph aureus with sensitivities pending. 4we will continue Rocephin however add vancomycin pharmacy to dose pending urine cultures to be finalized Dictation was produced using [employer] dictation software. please excuse any grammatical, word or spelling errors. Time with Patient: Less than 30
--- NOTE | 2023-04-07 16:55 | P.PN ---
Subjective Progress Note Date: 04/07/23 Principal diagnosis: Reason for follow-up is urine tract infection and a question of proctitis. Patient is a 73-year-old -Citizen Of [place] female with a past medical history significant for diabetes mellitus hypertension atrial fibrillation CVA spinal stenosis history of smoking patient was brought into the hospital for evaluation of right-sided abdominal pain, also have urinary symptoms did have a fever CT abdominal pelvis with bladder wall thickening and surrounding fat stranding and there was question of possible mild perirectal and presacral fat stranding. On today's evaluation that is 04/07/2023, the patient remains to be afebrile, patient is breathing comfortably on room air, patient denies having any chest pain shortness of breath or cough no nausea vomiting still complaining of some lower abdominal discomfort and continues to have hematuria The patient did have vital of 4.9, as of yesterday creatinine 0.92 urine culture with MRSA Objective - Vital Signs Vital signs: Vital Signs Temp 99.0 F 04/07/23 07:19 Pulse 112 H 04/07/23 07:19 Resp 19 04/07/23 07:19 BP 93/62 04/07/23 11:01 Pulse Ox 95 04/07/23 07:19 FiO2 Intake & Output 04/06/23 04/07/23 04/07/23 18:59 06:59 18:59 Intake Total 400 Output Total 600 Balance -200 Weight 77 kg Intake: Oral 400 Output: Urine 600 Other: Voiding Method Bedside Commode External Catheter External Catheter External Catheter # Voids 5 # Bowel Movements 4 4 - Exam GENERAL DESCRIPTION: An elderly female lying in bed in no distress RESPIRATORY SYSTEM: Unlabored breathing , decreased breath sounds at bases HEART: S1 S2 regular rate and rhythm , ABDOMEN: Soft , no tenderness EXTREMITIES: No edema feet - Labs CBC & Chem 7: 04/06/23 02:55 04/07/23 05:30 Labs: Abnormal Lab Results - Last 24 Hours (Table) 04/06/23 04/07/23 04/07/23 Range/Units 21:05 05:10 11:23 POC Glucose (mg/dL) 150 H 134 H 142 H (70-110) mg/dL Microbiology - Last 24 Hours (Table) 04/05/23 00:48 Urine Culture - Preliminary Urine,Voided Presumptive Staph aureus Assessment and Plan (1) MRSA (methicillin resistant staph aureus) culture positive Current Visit: Yes Status: Acute Code(s): Z22.322 - CARRIER OR SUSPECTED CARRIER OF METHICILLIN RESIS STAPH SNOMED Code(s): 969531468 (2) UTI (urinary tract infection) Current Visit: Yes Status: Acute Code(s): N39.0 - URINARY TRACT INFECTION, SITE NOT SPECIFIED SNOMED Code(s): 50620226 Plan: 1patient presented hospital with abdominal pain hematuria burning of urination this patient who did have a significantly positive UA with evidence of cystitis on the CT did not mention any hydronephrosis or renal stone. 2blood cultures currently pending urine culture has been finalized as MRSA 3we will continue the patient on vancomycin however discontinue Rocephin and monitor clinical course closely Dictation was produced using [employer] dictation software. please excuse any grammatical, word or spelling errors. Time with Patient: Less than 30
--- NOTE | 2023-04-07 17:03 | P.GSCN ---
History of Present Illness Consult date: 04/07/23 Reason for Consult: Gross hematuria, UTI History of present illness: This is a 73-year-old female that urology is being consulted for a UTI and gross hematuria. Patient has been expressing abdominal pain along the right side associated with dysuria and gross hematuria. Denies any history of recurrent UTIs, . No previous history of kidney stones. Denies any previous history of gross hematuria prior to this episode. Patient is incontinent of urine. She underwent a CT abdomen and pelvis on presentation which did not show any renal pathology. Her urine culture is growing MRSA. Review of Systems - Constitutional Denies fever, Denies weight loss - EENT Ears, nose, mouth and throat: Denies dysphagia - Cardiovascular Denies chest pain, Denies shortness of breath - Respiratory Denies cough, Denies 7 - Gastrointestinal Reports abdominal pain - Genitourinary Genitourinary: Reports dysuria, Reports hematuria, Denies flank pain - Integumentary Denies rash, Denies unusual bruising Past Medical History Past Medical History: Atrial Fibrillation, Diabetes Mellitus, Hypertension Additional Past Medical History / Comment(s): 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 Spinal stenosis. Poss thyroid issue. Varicose veins,. CHF History of Any Multi-Drug Resistant Organisms: None Reported Past Surgical History: Cholecystectomy, Heart Catheterization, Hernia Repair, Orthopedic Surgery Additional Past Surgical History / Comment(s): removed bone in left foot, Umbilical hernia, CARDIOVERSION, total right knee replacement Past Anesthesia/Blood Transfusion Reactions: No Reported Reaction Past Psychological History: Anxiety, Depression Smoking Status: Former smoker Past Alcohol Use History: None Reported Additional Past Alcohol Use History / Comment(s): Smoked 20 years, 1 ppd, quit 2002 Past Drug Use History: None Reported Additional Drug Use History / Comment(s): CBD gummies occ for pain, last 1 month ago - Past Family History Father History Unknown: Yes Sister(s) Family Medical History: Cancer Additional Family Medical History / Comment(s): breast cancer Mother Family Medical History: Deep Vein Thrombosis (DVT) Medications and Allergies Home Medications Medication Instructions Recorded Confirmed Type Folic Acid 1 mg PO DAILY@1200 09/07/22 04/05/23 History metHOTREXate sodium [Methotrexate] 20 mg PO MO 10/16/22 04/05/23 History Omeprazole 40 mg PO DAILY 30 Days #30 cap 12/10/22 04/05/23 Rx Apixaban [Eliquis] 5 mg PO BID@0800,1700 02/14/23 04/05/23 History Cholecalciferol [Vitamin D3 (25 25 mcg PO DAILY 02/14/23 04/05/23 History Mcg = 1000 Iu)] Docusate [Colace] 100 mg PO BID@0800,1700 02/14/23 04/05/23 History Empagliflozin [Jardiance] 10 mg PO DAILY@0600 02/14/23 04/05/23 History Escitalopram Oxalate [Lexapro] 10 mg PO DAILY 02/14/23 04/05/23 History Ferrous Sulfate [Iron (65 MG 325 mg PO DAILY 02/14/23 04/05/23 History Elemental)] Furosemide [Lasix] 20 mg PO DAILY 02/14/23 04/05/23 History INSULIN LISPRO (HumaLOG) [humaLOG] See Protocol SQ ACHS 02/14/23 04/05/23 History Isosorbide Mononitrate ER [Imdur] 30 mg PO DAILY 02/14/23 04/05/23 History Lactulose 10 gm PO BID@0800,1700 02/14/23 04/05/23 History Metoprolol Tartrate [Lopressor] 50 mg PO BID@0800,1700 02/14/23 04/05/23 History Na Phos,M-B/Na Phos,Di-Ba [Fleet 133 ml RECTAL DAILY PRN 02/14/23 04/05/23 History Adult] Nitroglycerin Sl Tabs [Nitrostat] 0.4 mg PO Q5M PRN 02/14/23 04/05/23 History Spironolactone 25 mg PO DAILY 02/14/23 04/05/23 History azaTHIOprine [Imuran] 50 mg PO TID@0600,1400,2200 02/14/23 04/05/23 History bisacodyL [Dulcolax] 10 mg RECTAL DAILY PRN 02/14/23 04/05/23 History hydrALAZINE HCL [Apresoline] 50 mg PO BID 02/14/23 04/05/23 History polyethylene glycoL 3350 [Miralax] 17 gm PO DAILY PRN 02/14/23 04/05/23 History traZODone HCL [Desyrel] 50 mg PO HS 02/14/23 04/05/23 History HYDROcodone/APAP 10-325MG [[place] 1 tab PO Q6HR PRN #6 tab 02/18/23 04/05/23 Rx 10-325] Cyanocobalamin [Vitamin B-12] 500 mcg PO DAILY 04/05/23 04/05/23 History Levofloxacin [Levaquin] 500 mg PO DAILY 04/05/23 04/05/23 History Mag Hydrox/Al Hydrox/Simeth 30 ml PO Q6H PRN 04/05/23 04/05/23 History [Maalox] Nicotine Polacrilex [Nicotine Gum] 4 mg BC BID PRN 04/05/23 04/05/23 History Oxycodone Myristate [Xtampza ER] 9 mg PO Q12H 04/05/23 04/05/23 History Sennosides [Senokot] 17.2 mg PO HS 04/05/23 04/05/23 History Allergies Allergy/AdvReac Type Severity Reaction Status Date / Time No Known Allergies Allergy Verified 04/05/23 08:12 Surgical - Exam Vital Signs Temp Pulse Resp BP Pulse Ox 98.8 F 94 22 138/97 96 04/04/23 22:03 04/04/23 22:03 04/04/23 22:03 04/04/23 22:03 04/04/23 22:03 - General no distress, no pain - Eyes normal ocular movement, no pale - ENT normal nares, normal mucosa - Respiratory normal expansion, normal respiratory effort - Abdomen Abdomen: soft, non tender Results - Labs 04/06/23 02:55 04/07/23 05:30 Abnormal Lab Results - Last 24 Hours (Table) 04/06/23 04/07/23 04/07/23 Range/Units 21:05 05:10 11:23 POC Glucose (mg/dL) 150 H 134 H 142 H (70-110) mg/dL 04/07/23 Range/Units 16:15 POC Glucose (mg/dL) 129 H (70-110) mg/dL Microbiology - Last 24 Hours (Table) 04/05/23 00:48 Urine Culture - Final Urine,Voided Methicillin resist S. aureus Diabetes panel 04/07/23 Range/Units 05:30 Creatinine 0.92 (0.52-1.04) mg/dL Pituitary panel 04/07/23 Range/Units 05:30 Creatinine 0.92 (0.52-1.04) mg/dL Adrenal panel 04/07/23 Range/Units 05:30 Creatinine 0.92 (0.52-1.04) mg/dL Assessment and Plan Assessment: 73-year-old female with gross hematuria and UTI. Her gross hematuria is most likely secondary to her UTI. CT abdomen and pelvis did not show any upper tract pathology. At this time I recommend outpatient follow-up in 2-3 weeks, we will repeat a urinalysis on her if it shows persistent hematuria that she will need a cystoscopy, but if gross hematuria resolves then no further evaluation is needed
[2023-04-07] MEDS: HEPARIN SODIUM,PORCINE 5,000 UNIT/ML 1 ML VIAL SQ SCH (20:22)
[2023-04-07] MEDS: SENNOSIDES 8.6 MG TAB PO SCH (20:22)
[2023-04-07] MEDS: traZODone HCL 50 MG TAB PO SCH (20:23)
[2023-04-07 21:03] LABS: Glucose,Whole Blood 138 mg/dL (70-110)
[2023-04-08 05:14] LABS: Glucose,Whole Blood 123 mg/dL (70-110)
[2023-04-08] MEDS: NITROGLYCERIN SL TABS 0.4 MG TAB SUBLINGUAL PRN ×3 (06:10→06:36)
[2023-04-08] MEDS: azaTHIOprine 50 MG TAB PO SCH ×3 (07:23→21:49)
[2023-04-08] MEDS: NITROGLYCERIN OINT 1 INCH/GM PACKET TOPICAL SCH ×2 (07:26→08:51)
[2023-04-08] MEDS: SODIUM CHLORIDE 0.9% 1,000 ML IV SCH ×2 (09:24→15:08)
[2023-04-08] MEDS: VANCOMYCIN 1,250 MG in SODIUM CHLORIDE 0.9% 250 ML IVPB SCH (10:11)
--- NOTE | 2023-04-08 10:11 | P.PN ---
Subjective HISTORY OF PRESENT ILLNESS: This is a 73-year-old female who follows in the office with Dr. Fatima. Patient is admitted to the hospital secondary to urinary tract infection. She is being followed by infectious disease and receiving IV antibiotics. This morning, the patient denies chest pain or pressure. She denies shortness of breath. She is having gross hematuria this morning. Telemetry reveals atrial fibrillation with a heart rate in the 90s. 04/08/2023 Patient examined this morning at the bedside. Patient had an episode of chest discomfort early this morning that was relieved with sublingual nitro. EKG com pleted revealing T-wave inversions in V4V6. At the time of examination, the patient denies any chest pain or pressure. She denies any shortness of breath. Telemetry reveals atrial fibrillation with controlled ventricular rate. Her anticoagulation remains on hold as she continues to have hematuria. She has been evaluated by urology with no plans for intervention. PHYSICAL EXAM: VITAL SIGNS: Reviewed. GENERAL: Well-developed in no acute distress. NECK: Supple. No JVD or thyromegaly LUNGS: Respirations even and unlabored. Lungs essentially clear to auscultation bilaterally. HEART: Irregular rate and rhythm. S1 and S2 heard. EXTREMITIES: Normal range of motion. No clubbing or cyanosis. Peripheral pulses intact. No lower extremity edema ASSESSMENT: Urinary tract infection Acute kidney injury, resolved Persistent atrial fibrillation with mild RVR Elevated troponin on admission, likely secondary to LOPEZ and infection Hypertension Diabetes History of CVA Rectal wall thickening, possible proctitis, per CT scan Gross hematuria Chest pain with EKG changes revealing T-wave inversions in V4V6 PLAN: Continue current cardiac medications Continue to hold Hold Eliquis secondary to gross hematuria. Recommend resuming Eliquis on Tuesday post colonoscopy at a decreased dose of 2.5 mg BID Continue telemetry monitoring Hydralazine discontinued yesterday secondary to borderline hypotension Obtain stat troponin Patient scheduled for colonoscopy on 04/11/2023 with general surgery Further recommendations pending patient's course Nurse practitioner note has been reviewed by physician. Signing provider agrees with the documented findings, assessment, and plan of care. Objective - Vital Signs Vital signs: Vital Signs Temp 97.8 F 04/08/23 01:57 Pulse 79 04/08/23 01:57 Resp 21 04/08/23 01:57 BP 158/89 04/08/23 01:57 Pulse Ox 96 04/08/23 01:57 FiO2 Intake & Output 04/07/23 04/08/23 04/08/23 18:59 06:59 18:59 Weight 77 kg Other: Voiding Method External Catheter External Catheter External Catheter # Voids 4 4 # Bowel Movements 2 3 - Labs CBC & Chem 7: 04/06/23 02:55 04/07/23 05:30 Labs: Abnormal Lab Results - Last 24 Hours (Table) 04/07/23 04/07/23 04/07/23 Range/Units 11:23 16:15 21:02 POC Glucose (mg/dL) 142 H 129 H 138 H (70-110) mg/dL 04/08/23 Range/Units 05:12 POC Glucose (mg/dL) 123 H (70-110) mg/dL Microbiology - Last 24 Hours (Table) 04/05/23 00:48 Urine Culture - Final Urine,Voided Methicillin resist S. aureus
[2023-04-08 10:56] LABS: Basophils # (A) 0.03 X 10*3/uL (0.00-0.10); Basophils % (A) 0.7 %; Eosinophils # (A) 0.34 X 10*3/uL (0.04-0.35); Eosinophils % (A) 7.6 %; HCT 31.3 % (37.2-46.3); HGB 9.6 g/dL (12.0-15.0); Lymphocytes # (A) 0.96 X 10*3/uL (0.90-5.00); Lymphocytes % (A) 21.3 %; MCH 29.4 pg (27.0-32.0); MCHC 30.7 g/dL (32.0-37.0); MCV 95.7 FL (80.0-97.0); Mean Platelet Volume 9.2 FL (9.5-12.2); Monocytes % (A) 6.7 %; NRBC Per 100 WBC 0 X 10*3/uL (0.00-0.01); Neutrophils # (A) 2.86 X 10*3/uL (1.80-7.70); Neutrophils % (A) 63.5 %; Platelet Count 281 X 10*3/uL (140-440); RBC 3.27 X 10*6/uL (4.10-5.20); RDW 17.4 % (11.5-14.5)
[2023-04-08] MEDS: DOXYCYCLINE 100 MG CAP PO SCH ×2 (11:23→21:49)
[2023-04-08] MEDS: METOPROLOL TARTRATE 50 MG TAB PO SCH ×2 (11:23→17:19)
[2023-04-08] MEDS: FUROSEMIDE 20 MG TAB PO SCH (11:23)
[2023-04-08] MEDS: SPIRONOLACTONE 25 MG TAB PO SCH (11:23)
[2023-04-08] MEDS: ISOSORBIDE MONONITRATE ER 30 MG TAB.ER.24H PO SCH (11:23)
[2023-04-08] MEDS: DOCUSATE 100 MG CAP PO SCH ×2 (11:24→16:48)
[2023-04-08] MEDS: LACTULOSE 20 GM/30 ML CUP PO SCH ×2 (11:24→16:48)
[2023-04-08] MEDS: HEPARIN SODIUM,PORCINE 5,000 UNIT/ML 1 ML VIAL SQ SCH ×2 (11:24→21:48)
--- NOTE | 2023-04-08 11:26 | P.PN ---
Subjective Progress Note Date: 04/08/23 CHIEF COMPLAINT: abdominal pain HISTORY OF PRESENT ILLNESS: Patient resting comfortably. Patient has no new complaints. Patient has right-sided abdominal pain. No bowel movements. Patient followed by cardiology for her chest pain. Eliquis on hold for hematuria. Patient seen by urology and recommending outpatient follow-up. Afebrile. WBC 4.5 Hgb 9.6 platelets 281 PHYSICAL EXAM: VITAL SIGNS: Reviewed. GENERAL: Well-developed in no acute distress. ABDOMEN: Soft. Nondistended. ASSESSMENT: 1. Possible proctitis. Rectal wall thickening versus partial distention and mild perirectal and presacral fat stranding noted on computed tomography scan 2. UTI PLAN: -Patient scheduled for colonoscopy on 04/11/[address] Burrell -Continue regular diet -Continue antibiotics Per ID service -Keep Eliquis on hold for Colonoscopy Physician Coin Machine Service Repairer note has been reviewed by physician. Signing provider agrees with the documented findings, assessment, and plan of care. Objective - Vital Signs Vital signs: Vital Signs Temp 97.8 F 04/08/23 01:57 Pulse 79 04/08/23 01:57 Resp 21 04/08/23 01:57 BP 158/89 04/08/23 01:57 Pulse Ox 96 04/08/23 01:57 FiO2 Intake & Output 04/07/23 04/08/23 04/08/23 18:59 06:59 18:59 Weight 77 kg Other: Voiding Method External Catheter External Catheter External Catheter # Voids 4 4 # Bowel Movements 2 3 - Labs CBC & Chem 7: 04/08/23 05:49 04/07/23 05:30 Labs: Abnormal Lab Results - Last 24 Hours (Table) 04/07/23 04/07/23 04/07/23 Range/Units 11:23 16:15 21:02 POC Glucose (mg/dL) 142 H 129 H 138 H (70-110) mg/dL 04/08/23 Range/Units 05:12 POC Glucose (mg/dL) 123 H (70-110) mg/dL Microbiology - Last 24 Hours (Table) 04/05/23 00:48 Urine Culture - Final Urine,Voided Methicillin resist S. aureus
[2023-04-08] MEDS: OXYCODONE MYRISTATE 9 MG PO SCH ×2 (11:27→21:22)
[2023-04-08] MEDS: PANTOPRAZOLE 40 MG TABLET PO SCH (11:27)
[2023-04-08] MEDS: CYANOCOBALAMIN 500 MCG TAB PO SCH (11:30)
[2023-04-08] MEDS: ESCITALOPRAM 10 MG TAB PO SCH (11:30)
[2023-04-08 11:43] LABS: Glucose,Whole Blood 130 mg/dL (70-110)
[2023-04-08 12:03] LABS: BUN/Creat Ratio 17.11 Ratio (12.00-20.00); Blood Urea Nitrogen 15.4 mg/dL (9.0-27.0); Calcium 9.7 mg/dL (8.7-10.3); Chloride 111 mmol/L (96-109); Glucose 123 mg/dL (70-110); Magnesium 1.7 mg/dL (1.5-2.4); Potassium 3.9 mmol/L (3.5-5.5); Sodium 143 mmol/L (135-145)
--- NOTE | 2023-04-08 14:06 | XR ---
EXAMINATION TYPE: XR abdomen 1V DATE OF EXAM: 04/08/2023 COMPARISON: 04/05/2023 HISTORY: Abdominal pain and distention TECHNIQUE: Abdomen is examined in the upright view FINDINGS: There are scattered air-fluid levels in the region of the ascending colon. Small amount of bowel gas ascending colon. No differential air-fluid levels are present. No free air is evident. Psoas margins are normal. Organomegaly is not evident. Cholecystectomy clips are present. Electronic device in the left pelvis extends to stimulator leads. IMPRESSION: 1. Scattered small air-fluid levels within the colon. Correlate for gastroenteritis.
--- NOTE | 2023-04-08 15:06 | P.PN ---
Subjective Progress Note Date: 04/08/23 No acute overnight events, urine is still light red, hemoglobin is stable Objective - Vital Signs Vital signs: Vital Signs Temp 98.5 F 04/08/23 12:56 Pulse 85 04/08/23 12:56 Resp 18 04/08/23 12:56 BP 133/91 04/08/23 12:56 Pulse Ox 97 04/08/23 12:56 FiO2 Intake & Output 04/07/23 04/08/23 04/08/23 18:59 06:59 18:59 Weight 77 kg Other: Voiding Method External Catheter External Catheter External Catheter # Voids 4 4 # Bowel Movements 2 3 - Labs CBC & Chem 7: 04/08/23 05:49 04/08/23 05:49 Labs: Abnormal Lab Results - Last 24 Hours (Table) 04/07/23 04/07/23 04/08/23 Range/Units 16:15 21:02 05:12 RBC (4.10-5.20) X 10*6/uL Hgb (12.0-15.0) g/dL Hct (37.2-46.3) % MCHC (32.0-37.0) g/dL RDW (11.5-14.5) % MPV (9.5-12.2) FL Chloride (96-109) mmol/L Carbon Dioxide (21.6-31.8) mmol/L Glucose (70-110) mg/dL POC Glucose (mg/dL) 129 H 138 H 123 H (70-110) mg/dL Troponin I (0.000-0.034) ng/mL C-Reactive Protein (<1.0) mg/dL 04/08/23 04/08/23 04/08/23 Range/Units 05:49 05:49 05:49 RBC 3.27 L (4.10-5.20) X 10*6/uL Hgb 9.6 L (12.0-15.0) g/dL Hct 31.3 L (37.2-46.3) % MCHC 30.7 L (32.0-37.0) g/dL RDW 17.4 H (11.5-14.5) % MPV 9.2 L (9.5-12.2) FL Chloride 111 H (96-109) mmol/L Carbon Dioxide 21.0 L (21.6-31.8) mmol/L Glucose 123 H (70-110) mg/dL POC Glucose (mg/dL) (70-110) mg/dL Troponin I (0.000-0.034) ng/mL C-Reactive Protein 15.6 H (<1.0) mg/dL 04/08/23 04/08/23 Range/Units 09:15 11:41 RBC (4.10-5.20) X 10*6/uL Hgb (12.0-15.0) g/dL Hct (37.2-46.3) % MCHC (32.0-37.0) g/dL RDW (11.5-14.5) % MPV (9.5-12.2) FL Chloride (96-109) mmol/L Carbon Dioxide (21.6-31.8) mmol/L Glucose (70-110) mg/dL POC Glucose (mg/dL) 130 H (70-110) mg/dL Troponin I 0.084 H* (0.000-0.034) ng/mL C-Reactive Protein (<1.0) mg/dL Microbiology - Last 24 Hours (Table) 04/05/23 00:48 Urine Culture - Final Urine,Voided Methicillin resist S. aureus Assessment and Plan Assessment: 73-year-old female with gross hematuria and UTI. Her gross hematuria is most likely secondary to her UTI. CT abdomen and pelvis did not show any upper tract pathology. At this time I recommend outpatient follow-up in 2-3 weeks, we will repeat a urinalysis on her if it shows persistent hematuria that she will need a cystoscopy, but if gross hematuria resolves then no further evaluation is needed
[2023-04-08] MEDS: metroNIDAZOLE 500 MG TAB PO SCH ×2 (15:08→21:49)
[2023-04-08] MEDS: HYDROcodone/APAP 10-325MG 1 EACH TAB PO PRN (15:11)
[2023-04-08 16:35] LABS: Glucose,Whole Blood 124 mg/dL (70-110)
--- NOTE | 2023-04-08 16:39 | P.PN ---
Subjective Progress Note Date: 04/08/23 Principal diagnosis: Reason for follow-up is urine tract infection and a question of proctitis. Patient is a 73-year-old -[place] female with a past medical history significant for diabetes mellitus hypertension atrial fibrillation CVA spinal stenosis history of smoking patient was brought into the hospital for evaluation of right-sided abdominal pain, also have urinary symptoms did have a fever CT abdominal pelvis with bladder wall thickening and surrounding fat stranding and there was question of possible mild perirectal and presacral fat stranding. On today's evaluation that is 04/08/2023, the patient denies any fever or any chills, the patient is breathing comfortably on room air patient, the patient denies having any chest pain shortness of the cough, the patient has been complaining of nausea and more lower abdominal pain patient did have some loose stool but no blood or mucus in the stool still having hematuria The patient did have white count of 4.50, creatinine 0.9, Vanco random has been low at 8.3 Objective - Vital Signs Vital signs: Vital Signs Temp 97.8 F 04/08/23 01:57 Pulse 79 04/08/23 01:57 Resp 21 04/08/23 01:57 BP 158/89 04/08/23 01:57 Pulse Ox 96 04/08/23 01:57 FiO2 Intake & Output 04/07/23 04/08/23 04/08/23 18:59 06:59 18:59 Weight 77 kg Other: Voiding Method External Catheter External Catheter External Catheter # Voids 4 4 # Bowel Movements 2 3 - Exam GENERAL DESCRIPTION: An elderly female lying in bed in no distress RESPIRATORY SYSTEM: Unlabored breathing , decreased breath sounds at bases HEART: S1 S2 regular rate and rhythm , ABDOMEN: Soft , no tenderness EXTREMITIES: No edema feet - Labs CBC & Chem 7: 04/08/23 05:49 04/08/23 05:49 Labs: Abnormal Lab Results - Last 24 Hours (Table) 04/07/23 04/07/23 04/08/23 Range/Units 16:15 21:02 05:12 RBC (4.10-5.20) X 10*6/uL Hgb (12.0-15.0) g/dL Hct (37.2-46.3) % MCHC (32.0-37.0) g/dL RDW (11.5-14.5) % MPV (9.5-12.2) FL Chloride (96-109) mmol/L Carbon Dioxide (21.6-31.8) mmol/L Glucose (70-110) mg/dL POC Glucose (mg/dL) 129 H 138 H 123 H (70-110) mg/dL Troponin I (0.000-0.034) ng/mL 04/08/23 04/08/23 04/08/23 Range/Units 05:49 05:49 09:15 RBC 3.27 L (4.10-5.20) X 10*6/uL Hgb 9.6 L (12.0-15.0) g/dL Hct 31.3 L (37.2-46.3) % MCHC 30.7 L (32.0-37.0) g/dL RDW 17.4 H (11.5-14.5) % MPV 9.2 L (9.5-12.2) FL Chloride 111 H (96-109) mmol/L Carbon Dioxide 21.0 L (21.6-31.8) mmol/L Glucose 123 H (70-110) mg/dL POC Glucose (mg/dL) (70-110) mg/dL Troponin I 0.084 H* (0.000-0.034) ng/mL 04/08/23 Range/Units 11:41 RBC (4.10-5.20) X 10*6/uL Hgb (12.0-15.0) g/dL Hct (37.2-46.3) % MCHC (32.0-37.0) g/dL RDW (11.5-14.5) % MPV (9.5-12.2) FL Chloride (96-109) mmol/L Carbon Dioxide (21.6-31.8) mmol/L Glucose (70-110) mg/dL POC Glucose (mg/dL) 130 H (70-110) mg/dL Troponin I (0.000-0.034) ng/mL Microbiology - Last 24 Hours (Table) 04/05/23 00:48 Urine Culture - Final Urine,Voided Methicillin resist S. aureus Assessment and Plan (1) MRSA (methicillin resistant staph aureus) culture positive Current Visit: Yes Status: Acute Code(s): Z22.322 - CARRIER OR SUSPECTED CARRIER OF METHICILLIN RESIS STAPH SNOMED Code(s): 410868521 (2) UTI (urinary tract infection) Current Visit: Yes Status: Acute Code(s): N39.0 - URINARY TRACT INFECTION, S ITE NOT SPECIFIED SNOMED Code(s): 35917911 (3) Proctitis Current Visit: Yes Status: Acute Code(s): K62.89 - OTHER SPECIFIED DISEASES OF ANUS AND RECTUM SNOMED Code(s): 0367899 Plan: 1patient presented hospital with abdominal pain hematuria burning of urination this patient who did have a significantly positive UA with evidence of cystitis on the CT did not mention any hydronephrosis or renal stone. 2blood cultures currently pending urine culture has been finalized as MRSA 3patient to continue the vancomycin for her MRSA UTI. 4patient has been complaining of more abdominal pain CT was showing evidence of proctitis we will restart her Rocephin and Flagyl and see clinical spots plan of care were discussed with the admitting team Dictation was produced using [employer] dictation software. please excuse any gra mmatical, word or spelling errors. Time with Patient: Less than 30
[2023-04-08 20:00] LABS: Glucose,Whole Blood 148 mg/dL (70-110)
[2023-04-08] MEDS: PANTOPRAZOLE 40 MG/10 ML VIAL IVP SCH (21:48)
[2023-04-08] MEDS: traZODone HCL 50 MG TAB PO SCH (21:49)
[2023-04-08] MEDS: SENNOSIDES 8.6 MG TAB PO SCH (21:49)
[2023-04-08] MEDS: HYDROmorphone 1 MG/ML 1 ML SYRINGE IVP PRN (22:19)
--- NOTE | 2023-04-09 05:04 | P.PN ---
Subjective Progress Note Date: 04/08/23 Patient is a 73-year-old female with known history of hypertension, diabetes type 2, atrial fibrillation on anticoagulation with Eliquis, history of CVA with minimal left-sided weakness and spinal stenosis, anxiety/depression, prior history of smoking, chronic pain patient presented to ER with complaints of abdominal pain mainly in the right lower quadrant. Patient has been having pain for the past 3 days. she was also having hematuria and was seen by her physician and was started antibiotics in the form of Levaquin. Patient presented to ER with out significant improvement. Patient otherwise denies any complaints of fever. No chills. Does have nausea and also some vomiting. No complaints of worsening back pain flank pain. No complaints of diarrhea. Patient does have history of constipation. On admission CT of the abdomen pelvis showed urinary bladder is minimally distended and bladder wall thickening and surrounding fat stranding correlate for cystitis. Rectal wall thickening versus possible distention. Mild perirectal and sacral fat stranding may be related to generalized pelvic inflammatory changes or proctitis. Laboratory data showed WBC 9.7 hemoglobin 10.8 and platelets 248 Sodium 139 potassium 3.7 chloride 103 bicarb is 23 BUN 20 and creatinine 1.23. Blood sugar 140 Liver edge is not elevated. Total bilirubin 1.2 amylase 47 lipase 50 and urinalysis showed turbid with 2+ protein, 4+ glucose, large blood, large leukocyte esterase and elevated RBCs and WBCs. [id number] Patient is seen in follow-up in the ICU as an overflow from 3 S. being started on amiodarone drip and patient is continued on heparin with cardiology along with general surgery and infectious disease following. Urine cultures thus far showing presumptive staph aureus and patient is maintained on ceftriaxone along with Flagyl. Patient did have an elevated troponin and was transferred over h ere for further monitoring and adjustments to medications being made and heparin is being discontinued per cardiology. Patient continues on antibiotics and being adjusted to vancomycin per infectious disease and we'll monitor and await for finalized cultures. Patient reports to feeling improved from yesterday although continues with generalized weakness and feeling unwell. Gen. surgery for evaluation of abdominal pain. Patient is currently afebrile with no reports of chest pain or shortness of breath. Patient currently sitting up eating in bed at this time. Awaiting transfer to [facility] of the bed is available 04/07/2023 Patient is seen and evaluated in follow-up this morning with multiple medical consultations following including infectious disease, general surgery, and cardiology. Patient noted to have gross hematuria in the airway device and had been recently resumed on eliquis and will hold this for now and continue with subcutaneous heparin and will also consult urology and appreciate input and recommendations. Patient continues with diffuse abdominal pain and reports pain and burning with urination and was evaluated by general surgery recommending colonoscopy on Tuesday. Preliminary cultures finalized showing MRSA and patient is maintained on ceftriaxone along with Flagyl. Patient did receive a dose of vancomycin. Patient is currently afebrile with no reported chest pain or shortness of breath. Blood pressures are soft and medications are being adjusted per cardiology. 04/08/2023 Patient is seen in follow-up this morning with multiple medical consultations following. Patient continues on antibiotics with infectious disease following a significant UTI and cultures are finalized showing MRSA. CT suggestive of colitis and patient continues to have severe abdominal pain and follow-up x-ray of the abdomen consistent with gastroenteritis. Patient continues to report multiple episodes of loose stools and per nursing staff patient was having somewhat formed fecal matter is well. Will obtain C. diff to rule out as patient has been continued on antibiotics. Patient denies nausea or vomiting and tolerating diet and would recommend small frequent meals. Patient with significant weakness will be having physical therapy reevaluation. Patient is a long-term resident at [facility] and will be returning there on discharge. Patient continues with hematuria although slightly improved and hemoglobin remained stable. Urology has evaluated the patient with no plans for surgical intervention at this time recommend monitoring possible outpatient follow-up. Review of systems: Constitutional: No reports of fatigue, fever, or chills Cardiovascular: No reports of chest pain or palpitations Respiratory: No reports of shortness of breath or cough GI: No reports of nausea, vomiting, reports diarrhea, reports continued abdominal pain and continued episodes of loose stools : reports of dysuria and pain with urination Neurovascular: reports of generalized weakness All medications have been reviewed PHYSICAL EXAMINATION: Patient is sitting up in the bed. Patient appears somewhat anxious today and frustrated. awake alert and oriented.. Obese HEENT: Normocephalic. Neck is supple. Pupils reactive. Nostrils clear. Oral cavity is moist. Neck reveals no JVD, carotid bruits, or thyromegaly. CHEST EXAMINATION: Trachea is central. Symmetrical expansion. Lung nielson clear to auscultation and percussion. CARDIAC: Normal S1, S2 with no gallops. No murmurs ABDOMEN: Soft. Bowel sounds present. Patient does have generalized tenderness on palpation. No Guarding. No rigidity.. No abdominal bruits. Extremities: reveal trace pedal edema. No clubbing or cyanosis Neurologically awake, alert, oriented x3. Able to move all extremities. Mini mal left-sided weakness. Skin: No rash or skin lesions. Psychiatric: Cooperative. Non-suicidal Musculoskeletal: No joint swelling or deformity. Assessment: Acute urinary tract infection with dysuria and hematuria. Cultures finalized showing MRSA Possible Pelvic inflammatory disease. Patient does have generalized lower abdominal pain mainly right lower quadrant. CT findings of generalized pelvic inflammatory changes versus proctitis. Possible proctitis with ongoing abdominal pain and tenderness Diarrhea, rule out C. diff Acute kidney injury likely prerenal. Baseline creatinine 0.8 Atrial fibrillation on anticoagulation with Eliquis although having increased hematuria and will hold anticoagulation for now, continue subcutaneous heparin per cardiology Hypertension Diabetes type 2 insulin-dependent History of CVA with right-sided mild residual weakness Rheumatoid arthritis patient is on methotrexate and Imuran Anxiety/depression Prior history of smoking History of CBD Gummies use for pain Chronic pain Constipation history GI bleed prophylaxis with PPI DVT prophylaxis, subcutaneous heparin Obesity with a BMI of 32.1 Full code Plan: Patient will be continued on gentle IV hydration. Continue with antibiotics with infectious disease following. Cultures finalized showing MRSA and patient is continued on ceftriaxone and Flagyl. Patient on vancomycin as well. Infectious disease making adjustments to medications General surgery evaluated the patient recommending colonoscopy which is scheduled for Tuesday04/11/2023 Patient with noted gross hematuria although slightly improved and hemoglobin is currently stable above 9. We'll monitor with follow-up labs. Urology evaluated the patient with no plans for immediate surgical intervention recommending outpatient follow-up. Hematuria most likely secondary to urinary tract infection per urology Continue telemetry monitoring Continue monitoring Accu-Cheks before meals and at bedtime and will continue with insulin/sliding scale regimen The impression and plan of care has been dictated by Any Peguero, Nurse Practitioner as directed. Dr. Tyrese MD I have performed a history and examination and MDM of this patient, discussed the same with the dictator, and agree with the dictator's assessment and plan as written ,documented as a scribe. Based on total visit time, I have performed more than 50% of the visit. Objective - Vital Signs Vital signs: Vital Signs Temp 97.8 F 04/08/23 01:57 Pulse 79 04/08/23 01:57 Resp 21 04/08/23 01:57 BP 158/89 04/08/23 01:57 Pulse Ox 96 04/08/23 01:57 FiO2 Intake & Output 04/07/23 04/08/23 04/08/23 18:59 06:59 18:59 Weight 77 kg Other: Voiding Method External Catheter External Catheter External Catheter # Voids 4 4 # Bowel Movements 2 3 - Labs CBC & Chem 7: 04/08/23 05:49 04/08/23 05:49 Labs: Abnormal Lab Results - Last 24 Hours (Table) 04/07/23 04/07/23 04/07/23 Range/Units 11:23 16:15 21:02 POC Glucose (mg/dL) 142 H 129 H 138 H (70-110) mg/dL 04/08/23 Range/Units 05:12 POC Glucose (mg/dL) 123 H (70-110) mg/dL Microbiology - Last 24 Hours (Table) 04/05/23 00:48 Urine Culture - Final Urine,Voided Methicillin resist S. aureus
[2023-04-09] MEDS: azaTHIOprine 50 MG TAB PO SCH ×3 (05:27→20:47)
[2023-04-09] MEDS: HYDROmorphone 1 MG/ML 1 ML SYRINGE IVP PRN ×2 (05:45→20:48)
[2023-04-09 05:56] LABS: Glucose,Whole Blood 124 mg/dL (70-110)
[2023-04-09 07:53] LABS: African American GFR (CKD) >90 (>60 ml/min/1.73 sqM); Anion Gap 14 mmol/L; Blood Urea Nitrogen 13 mg/dL (7-17); Calcium 9.6 mg/dL (8.4-10.2); Carbon Dioxide 17 mmol/L (22-30); Chloride 113 mmol/L (98-107); Glucose 133 mg/dL (74-99); Magnesium 1.6 mg/dL (1.6-2.3); Non-African American GFR(CKD) 80 (>60 ml/min/1.73 sqM); Potassium 3.5 mmol/L (3.5-5.1); Sodium 144 mmol/L (137-145)
[2023-04-09 08:09] LABS: Anisocytosis Slight; Basophils % (A) 1 %; Eosinophils # (A) 0.2 k/uL (0-0.7); Eosinophils % (A) 6 %; HCT 30.7 % (34.0-46.0); HGB 9.7 gm/dL (11.4-16.0); Hypochromasia Marked; Lymphocytes # (A) 0.7 k/uL (1.0-4.8); Lymphocytes % (A) 22 %; MCH 30.9 pg (25.0-35.0); MCHC 31.4 g/dL (31.0-37.0); MCV 98.4 fL (80.0-100.0); Macrocytosis Slight; Mean Platelet Volume 7.3; Monocytes # (A) 0.2 k/uL (0-1.0); Monocytes % (A) 7 %; Neutrophils % (A) 62 %; Platelet Count 286 k/uL (150-450); RBC 3.12 m/uL (3.80-5.40); RDW 17.6 % (11.5-15.5); WBC 3.3 k/uL (3.8-10.6)
[2023-04-09] MEDS: SPIRONOLACTONE 25 MG TAB PO SCH (08:27)
[2023-04-09] MEDS: METOPROLOL TARTRATE 50 MG TAB PO SCH ×2 (08:27→16:51)
[2023-04-09] MEDS: CYANOCOBALAMIN 500 MCG TAB PO SCH (08:27)
[2023-04-09] MEDS: DOCUSATE 100 MG CAP PO SCH ×2 (08:27→16:53)
[2023-04-09] MEDS: LACTULOSE 20 GM/30 ML CUP PO SCH ×2 (08:27→16:53)
[2023-04-09] MEDS: FUROSEMIDE 20 MG TAB PO SCH (08:27)
[2023-04-09] MEDS: HYDROcodone/APAP 10-325MG 1 EACH TAB PO PRN ×2 (08:27→13:59)
[2023-04-09] MEDS: ISOSORBIDE MONONITRATE ER 30 MG TAB.ER.24H PO SCH (08:27)
[2023-04-09] MEDS: metroNIDAZOLE 500 MG TAB PO SCH ×3 (08:28→20:47)
[2023-04-09] MEDS: ESCITALOPRAM 10 MG TAB PO SCH (08:28)
[2023-04-09] MEDS: HEPARIN SODIUM,PORCINE 5,000 UNIT/ML 1 ML VIAL SQ SCH ×2 (08:28→20:48)
[2023-04-09] MEDS: DOXYCYCLINE 100 MG CAP PO SCH ×2 (08:28→20:47)
[2023-04-09] MEDS: PANTOPRAZOLE 40 MG/10 ML VIAL IVP SCH ×2 (08:29→20:47)
[2023-04-09] MEDS: VANCOMYCIN 1,250 MG in SODIUM CHLORIDE 0.9% 250 ML IVPB SCH (08:29)
[2023-04-09] MEDS: OXYCODONE MYRISTATE 9 MG PO SCH ×2 (08:40→20:37)
[2023-04-09] MEDS ORDERED: Magnesium Replacement Protocol 1 EACH MISC MISCELLANE PRN (09:56)
[2023-04-09] MEDS ORDERED: POTASSIUM CHLORIDE ER 20 MEQ TAB.ER PO STA (09:57)
[2023-04-09] MEDS: MAGNESIUM SULFATE-D5W PMX 1 GM in DEXTROSE/WATER 1 100ML.BAG IVPB SCH ×2 (10:42→11:39)
[2023-04-09] MEDS: SODIUM CHLORIDE 0.9% 1,000 ML IV SCH (10:44)
--- NOTE | 2023-04-09 10:54 | P.PN ---
Subjective Progress Note Date: 04/09/23 (Surgery) ASSESSMENT: 1. Possible proctitis. Rectal wall thickening versus partial distention and mild perirectal and presacral fat stranding noted on computed tomography scan 2. UTI PLAN: -Patient scheduled for colonoscopy on 04/11/[address] Burrell -Continue antibiotics Per ID service -Keep Eliquis on hold for Colonoscopy Objective - Vital Signs Vital signs: Vital Signs Temp 97.6 F 04/09/23 08:00 Pulse 95 04/09/23 08:00 Resp 20 04/09/23 08:00 BP 138/85 04/09/23 08:00 Pulse Ox 98 04/09/23 08:00 FiO2 Intake & Output 04/08/23 04/09/23 04/09/23 18:59 06:59 18:59 Weight 76.9 kg Other: Voiding Method External Catheter External Catheter Bedside Commode # Voids 1 4 1 # Bowel Movements 1 1 - Labs CBC & Chem 7: 04/09/23 07:09 04/09/23 07:09 Labs: Abnormal Lab Results - Last 24 Hours (Table) 04/08/23 04/08/23 04/08/23 Range/Units 05:49 05:49 05:49 WBC (3.8-10.6) k/uL RBC 3.27 L (4.10-5.20) X 10*6/uL Hgb 9.6 L (12.0-15.0) g/dL Hct 31.3 L (37.2-46.3) % MCHC 30.7 L (32.0-37.0) g/dL RDW 17.4 H (11.5-14.5) % MPV 9.2 L (9.5-12.2) FL Lymphocytes # (1.0-4.8) k/uL Chloride 111 H (96-109) mmol/L Carbon Dioxide 21.0 L (21.6-31.8) mmol/L Glucose 123 H (70-110) mg/dL POC Glucose (mg/dL) (70-110) mg/dL C-Reactive Protein 15.6 H (<1.0) mg/dL 04/08/23 04/08/23 04/08/23 Range/Units 11:41 16:34 19:58 WBC (3.8-10.6) k/uL RBC (4.10-5.20) X 10*6/uL Hgb (12.0-15.0) g/dL Hct (37.2-46.3) % MCHC (32.0-37.0) g/dL RDW (11.5-14.5) % MPV (9.5-12.2) FL Lymphocytes # (1.0-4.8) k/uL Chloride (96-109) mmol/L Carbon Dioxide (21.6-31.8) mmol/L Glucose (70-110) mg/dL POC Glucose (mg/dL) 130 H 124 H 148 H (70-110) mg/dL C-Reactive Protein (<1.0) mg/dL 04/09/23 04/09/23 04/09/23 Range/Units 05:55 07:09 07:09 WBC 3.3 L (3.8-10.6) k/uL RBC 3.12 L (4.10-5.20) X 10*6/uL Hgb 9.7 L (12.0-15.0) g/dL Hct 30.7 L (37.2-46.3) % MCHC (32.0-37.0) g/dL RDW 17.6 H (11.5-14.5) % MPV (9.5-12.2) FL Lymphocytes # 0.7 L (1.0-4.8) k/uL Chloride 113 H (96-109) mmol/L Carbon Dioxide 17 L (21.6-31.8) mmol/L Glucose 133 H (70-110) mg/dL POC Glucose (mg/dL) 124 H (70-110) mg/dL C-Reactive Protein (<1.0) mg/dL
[2023-04-09 11:27] LABS: Glucose,Whole Blood 128 mg/dL (70-110)
[2023-04-09] MEDS: LACTATED RINGERS 1,000 ML IV SCH ×2 (11:39→20:48)
[2023-04-09 16:10] LABS: Glucose,Whole Blood 120 mg/dL (70-110)
--- NOTE | 2023-04-09 16:54 | P.PN ---
Subjective Progress Note Date: 04/09/23 Patient is a 73-year-old female with known history of hypertension, diabetes type 2, atrial fibrillation on anticoagulation with Eliquis, history of CVA with minimal left-sided weakness and spinal stenosis, anxiety/depression, prior history of smoking, chronic pain patient presented to ER with complaints of abdominal pain mainly in the right lower quadrant. Patient has been having pain for the past 3 days. she was also having hematuria and was seen by her physician and was started antibiotics in the form of Levaquin. Patient presented to ER with out significant improvement. Patient otherwise denies any complaints of fever. No chills. Does have nausea and also some vomiting. No complaints of worsening back pain flank pain. No complaints of diarrhea. Patient does have history of constipation. On admission CT of the abdomen pelvis showed urinary bladder is minimally distended and bladder wall thickening and surrounding fat stranding correlate for cystitis. Rectal wall thickening versus possible distention. Mild perirectal and sacral fat stranding may be related to generalized pelvic inflammatory changes or proctitis. Laboratory data showed WBC 9.7 hemoglobin 10.8 and platelets 248 Sodium 139 potassium 3.7 chloride 103 bicarb is 23 BUN 20 and creatinine 1.23. Blood sugar 140 Liver edge is not elevated. Total bilirubin 1.2 amylase 47 lipase 50 and urinalysis showed turbid with 2+ protein, 4+ glucose, large blood, large leukocyte esterase and elevated RBCs and WBCs. [id number] Patient is seen in follow-up in the ICU as an overflow from 3 S. being started on amiodarone drip and patient is continued on heparin with cardiology along with general surgery and infectious disease following. Urine cultures thus far showing presumptive staph aureus and patient is maintained on ceftriaxone along with Flagyl. Patient did have an elevated troponin and was transferred over her e for further monitoring and adjustments to medications being made and heparin is being discontinued per cardiology. Patient continues on antibiotics and being adjusted to vancomycin per infectious disease and we'll monitor and await for finalized cultures. Patient reports to feeling improved from yesterday although continues with generalized weakness and feeling unwell. Gen. surgery for evaluation of abdominal pain. Patient is currently afebrile with no reports of chest pain or shortness of breath. Patient currently sitting up eating in bed at this time. Awaiting transfer to [facility] of the bed is available 04/07/2023 Patient is seen and evaluated in follow-up this morning with multiple medical consultations following including infectious disease, general surgery, and cardiology. Patient noted to have gross hematuria in the airway device and had been recently resumed on eliquis and will hold this for now and continue with subcutaneous heparin and will also consult urology and appreciate input and recommendations. Patient continues with diffuse abdominal pain and reports pain and burning with urination and was evaluated by general surgery recommending colonoscopy on Tuesday. Preliminary cultures finalized showing MRSA and patient is maintained on ceftriaxone along with Flagyl. Patient did receive a dose of vancomycin. Patient is currently afebrile with no reported chest pain or shortness of breath. Blood pressures are soft and medications are being adjusted per cardiology. 04/08/2023 Patient is seen in follow-up this morning with multiple medical consultations following. Patient continues on antibiotics with infectious disease following a significant UTI and cultures are finalized showing MRSA. CT suggestive of colitis and patient continues to have severe abdominal pain and follow-up x-ray of the abdomen consistent with gastroenteritis. Patient continues to report multiple episodes of loose stools and per nursing staff patient was having somewhat formed fecal matter is well. Will obtain C. diff to rule out as patient has been continued on antibiotics. Patient denies nausea or vomiting and tolerating diet and would recommend small frequent meals. Patient with significant weakness will be having physical therapy reevaluation. Patient is a long-term resident at [facility] and will be returning there on discharge. Patient continues with hematuria although slightly improved and hemoglobin remained stable. Urology has evaluated the patient with no plans for surgical intervention at this time recommend monitoring possible outpatient follow-up. 04/09/2023 Patient is evaluated today standing up at the bedside continues to have loose stools. Continues on IV antibiotics and general surgery following closely plans to undergo colonoscopy on Tuesday. Patient feels his abdomen is distended today. He has hematuria. Review of systems: Constitutional: No reports of fatigue, fever, or chills Cardiovascular: No reports of chest pain or palpitations Respiratory: No reports of shortness of breath or cough GI: No reports of nausea, vomiting, reports diarrhea, reports continued abdominal pain and continued episodes of loose stools : reports of dysuria and pain with urination Neurovascular: reports of generalized weakness All medications have been reviewed PHYSICAL EXAMINATION: Patient is sitting up in the bed. Patient appears somewhat anxious today and frustrated. awake alert and oriented.. Obese HEENT: Normocephalic. Neck is supple. Pupils reactive. Nostrils clear. Oral cavity is moist. Neck reveals no JVD, carotid bruits, or thyromegaly. CHEST EXAMINATION: Trachea is central. Symmetrical expansion. Lung nielson clear to auscultation and percussion. CARDIAC: Normal S1, S2 with no gallops. No murmurs ABDOMEN: Soft. Bowel sounds present. Patient does have generalized tenderness on palpation. No Guarding. No rigidity.. No abdominal bruits. Extremities: reveal trace pedal edema. No clubbing or cyanosis Neurologically awake, alert, oriented x3. Able to move all extremities. Minimal left-sided weakness. Skin: No rash or skin lesions. Psychiatric: Cooperative. Non-suicidal Musculoskeletal: No joint swelling or deformity. Assessment: Acute urinary tract infection with dysuria and hematuria. Cultures finalized showing MRSA Possible Pelvic inflammatory disease. Patient does have generalized lower abdominal pain mainly right lower quadrant. CT findings of generalized pelvic inflammatory changes versus proctitis. Possible proctitis with ongoing abdominal pain and tenderness Diarrhea, rule out C. diff Acute kidney injury likely prerenal. Baseline creatinine 0.8 Atrial fibrillation on anticoagulation with Eliquis although having increased hematuria and will hold anticoagulation for now, continue subcutaneous heparin per cardiology Hypertension Diabetes type 2 insulin-dependent History of CVA with right-sided mild residual weakness Rheumatoid arthritis patient is on methotrexate and Imuran Anxiety/depression Prior history of smoking History of CBD Gummies use for pain Chronic pain Constipation history GI bleed prophylaxis with PPI DVT prophylaxis, subcutaneous heparin Obesity with a BMI of 32.1 Full code Plan: Patient will be continued on gentle IV hydration. Continue with antibiotics with infectious disease following. Cultures finalized showing MRSA and patient is continued on ceftriaxone and Flagyl. Patient on vancomycin as well. Infectious disease making adjustments to medications General surgery evaluated the patient recommending colonoscopy which is scheduled for Tuesday04/11/2023 Patient with noted gross hematuria although slightly improved and hemoglobin is currently stable above 9. We'll monitor with follow-up labs. Urology evaluated the patient with no plans for immediate surgical intervention recommending outpatient follow-up. Hematuria most likely secondary to urinary tract infection per urology Continue telemetry monitoring Continue monitoring Accu-Cheks before meals and at bedtime and will continue with insulin/sliding scale regimen The impression and plan of care has been dictated by Diana León, Nurse Practitioner as directed. Dr. Tyrese MD I have performed a history and physical examination and medical decision making of this patient, discussed the same with the dictator, and agree with the dictators assessment and plan as written, documented as a scribe. Based on total visit time, I have performed more than 50% of this visit. Objective - Vital Signs Vital signs: Vital Signs Temp 97.8 F 04/09/23 14:00 Pulse 78 04/09/23 14:00 Resp 18 04/09/23 14:00 BP 134/77 04/09/23 14:00 Pulse Ox 98 04/09/23 14:00 FiO2 Intake & Output 04/08/23 04/09/23 04/09/23 18:59 06:59 18:59 Intake Total 240 Balance 240 Weight 76.9 kg Intake: Oral 240 Other: Voiding Method External Catheter External Catheter Bedside Commode # Voids 1 4 3 # Bowel Movements 1 1 - Labs CBC & Chem 7: 04/09/23 07:09 04/09/23 07:09 Labs: Abnormal Lab Results - Last 24 Hours (Table) 04/08/23 04/09/23 04/09/23 Range/Units 19:58 05:55 07:09 WBC (3.8-10.6) k/uL RBC (3.80-5.40) m/uL Hgb (11.4-16.0) gm/dL Hct (34.0-46.0) % RDW (11.5-15.5) % Lymphocytes # (1.0-4.8) k/uL Chloride 113 H (98-107) mmol/L Carbon Dioxide 17 L (22-30) mmol/L Glucose 133 H (74-99) mg/dL POC Glucose (mg/dL) 148 H 124 H (70-110) mg/dL 04/09/23 04/09/23 04/09/23 Range/Units 07:09 11:08 16:05 WBC 3.3 L (3.8-10.6) k/uL RBC 3.12 L (3.80-5.40) m/uL Hgb 9.7 L (11.4-16.0) gm/dL Hct 30.7 L (34.0-46.0) % RDW 17.6 H (11.5-15.5) % Lymphocytes # 0.7 L (1.0-4.8) k/uL Chloride (98-107) mmol/L Carbon Dioxide (22-30) mmol/L Glucose (74-99) mg/dL POC Glucose (mg/dL) 128 H 120 H (70-110) mg/dL Assessment and Plan Time with Patient: Less than 30
[2023-04-09 20:35] LABS: Glucose,Whole Blood 127 mg/dL (70-110)
[2023-04-09] MEDS: SENNOSIDES 8.6 MG TAB PO SCH (20:46)
[2023-04-09] MEDS: traZODone HCL 50 MG TAB PO SCH (20:47)
[2023-04-10] MEDS: HYDROcodone/APAP 10-325MG 1 EACH TAB PO PRN ×4 (00:34→18:32)
[2023-04-10] MEDS: azaTHIOprine 50 MG TAB PO SCH ×3 (05:10→21:11)
[2023-04-10] MEDS: HYDROmorphone 1 MG/ML 1 ML SYRINGE IVP PRN ×2 (05:13→22:48)
[2023-04-10 06:20] LABS: Glucose,Whole Blood 133 mg/dL (70-110)
[2023-04-10 07:01] LABS: African American GFR (CKD) 90 (>60 ml/min/1.73 sqM); Magnesium 1.8 mg/dL (1.6-2.3); Non-African American GFR(CKD) 78 (>60 ml/min/1.73 sqM)
[2023-04-10] MEDS: PANTOPRAZOLE 40 MG/10 ML VIAL IVP SCH ×2 (07:53→22:47)
[2023-04-10] MEDS: METOPROLOL TARTRATE 50 MG TAB PO SCH ×2 (07:53→17:06)
[2023-04-10] MEDS: ESCITALOPRAM 10 MG TAB PO SCH (07:54)
[2023-04-10] MEDS: SPIRONOLACTONE 25 MG TAB PO SCH (07:54)
[2023-04-10] MEDS: FUROSEMIDE 20 MG TAB PO SCH (07:54)
[2023-04-10] MEDS: DOCUSATE 100 MG CAP PO SCH ×2 (07:54→17:06)
[2023-04-10] MEDS: ISOSORBIDE MONONITRATE ER 30 MG TAB.ER.24H PO SCH (07:54)
[2023-04-10] MEDS: HEPARIN SODIUM,PORCINE 5,000 UNIT/ML 1 ML VIAL SQ SCH ×2 (07:54→21:11)
[2023-04-10] MEDS: DOXYCYCLINE 100 MG CAP PO SCH ×2 (07:55→21:11)
[2023-04-10] MEDS: CYANOCOBALAMIN 500 MCG TAB PO SCH (07:56)
[2023-04-10] MEDS: metroNIDAZOLE 500 MG TAB PO SCH ×3 (07:56→21:11)
[2023-04-10] MEDS: LACTULOSE 20 GM/30 ML CUP PO SCH ×2 (07:56→17:06)
[2023-04-10] MEDS: OXYCODONE MYRISTATE 9 MG PO SCH ×2 (07:57→21:10)
[2023-04-10] MEDS ORDERED: PEG 3350 (236 GM/BTL) + LYTES 4,000 ML BOTTLE PO ONE (09:00)
[2023-04-10] MEDS: VANCOMYCIN 1,250 MG in SODIUM CHLORIDE 0.9% 250 ML IVPB SCH (10:22)
--- NOTE | 2023-04-10 11:02 | P.PN ---
Subjective Progress Note Date: 04/10/23 Patient remains stable. She has minimal complaints of abdominal pain. She is undergoing bowel prep today. On exam vital signs appear stable. Abdomen soft. Patient was scheduled for colonoscopy in the a.m. Objective - Vital Signs Vital signs: Vital Signs Temp 97.9 F 04/10/23 07:05 Pulse 87 04/10/23 07:05 Resp 19 04/10/23 07:05 BP 134/92 04/10/23 07:05 Pulse Ox 99 04/10/23 07:05 FiO2 Intake & Output 04/09/23 04/10/23 04/10/23 18:59 06:59 18:59 Intake Total 1620 1140 Balance 1620 1140 Weight 80.3 kg Intake: Intake, IV Titration 900 900 Amount Lactated Ringers 1,000 ml 900 900 @ 75 mls/hr IV .[id number] [facility] Rx#:[id number] Oral 720 240 Other: Voiding Method Bedside Commode Bedside Commode Diaper # Voids 1 2 # Bowel Movements 1 1 - Labs CBC & Chem 7: 04/09/23 07:09 04/10/23 06:33 Labs: Abnormal Lab Results - Last 24 Hours (Table) 04/09/23 04/09/23 04/09/23 Range/Units 11:08 16:05 20:33 POC Glucose (mg/dL) 128 H 120 H 127 H (70-110) mg/dL 04/10/23 Range/Units 06:18 POC Glucose (mg/dL) 133 H (70-110) mg/dL Microbiology - Last 24 Hours (Table) 04/08/23 13:25 Blood Culture - Preliminary Blood
[2023-04-10 11:19] LABS: Glucose,Whole Blood 109 mg/dL (70-110)
[2023-04-10] MEDS: LACTATED RINGERS 1,000 ML IV SCH (14:11)
--- NOTE | 2023-04-10 15:05 | P.PN ---
Subjective Progress Note Date: 04/10/23 Patient is a 73-year-old female with known history of hypertension, diabetes type 2, atrial fibrillation on anticoagulation with Eliquis, history of CVA with minimal left-sided weakness and spinal stenosis, anxiety/depression, prior history of smoking, chronic pain patient presented to ER with complaints of abdominal pain mainly in the right lower quadrant. Patient has been having pain for the past 3 days. she was also having hematuria and was seen by her physician and was started antibiotics in the form of Levaquin. Patient presented to ER with out significant improvement. Patient otherwise denies any complaints of fever. No chills. Does have nausea and also some vomiting. No complaints of worsening back pain flank pain. No complaints of diarrhea. Patient does have history of constipation. On admission CT of the abdomen pelvis showed urinary bladder is minimally distended and bladder wall thickening and surrounding fat stranding correlate for cystitis. Rectal wall thickening versus possible distention. Mild perirectal and sacral fat stranding may be related to generalized pelvic inflammatory changes or proctitis. Laboratory data showed WBC 9.7 hemoglobin 10.8 and platelets 248 Sodium 139 potassium 3.7 chloride 103 bicarb is 23 BUN 20 and creatinine 1.23. Blood sugar 140 Liver edge is not elevated. Total bilirubin 1.2 amylase 47 lipase 50 and urinalysis showed turbid with 2+ protein, 4+ glucose, large blood, large leukocyte esterase and elevated RBCs and WBCs. [id number] Patient is seen in follow-up in the ICU as an overflow from 3 S. being started on amiodarone drip and patient is continued on heparin with cardiology along with general surgery and infectious disease following. Urine cultures thus far showing presumptive staph aureus and patient is maintained on ceftriaxone along with Flagyl. Patient did have an elevated troponin and was transferred over her e for further monitoring and adjustments to medications being made and heparin is being discontinued per cardiology. Patient continues on antibiotics and being adjusted to vancomycin per infectious disease and we'll monitor and await for finalized cultures. Patient reports to feeling improved from yesterday although continues with generalized weakness and feeling unwell. Gen. surgery for evaluation of abdominal pain. Patient is currently afebrile with no reports of chest pain or shortness of breath. Patient currently sitting up eating in bed at this time. Awaiting transfer to [facility] of the bed is available 04/07/2023 Patient is seen and evaluated in follow-up this morning with multiple medical consultations following including infectious disease, general surgery, and cardiology. Patient noted to have gross hematuria in the airway device and had been recently resumed on eliquis and will hold this for now and continue with subcutaneous heparin and will also consult urology and appreciate input and recommendations. Patient continues with diffuse abdominal pain and reports pain and burning with urination and was evaluated by general surgery recommending colonoscopy on Tuesday. Preliminary cultures finalized showing MRSA and patient is maintained on ceftriaxone along with Flagyl. Patient did receive a dose of vancomycin. Patient is currently afebrile with no reported chest pain or shortness of breath. Blood pressures are soft and medications are being adjusted per cardiology. 04/08/2023 Patient is seen in follow-up this morning with multiple medical consultations following. Patient continues on antibiotics with infectious disease following a significant UTI and cultures are finalized showing MRSA. CT suggestive of colitis and patient continues to have severe abdominal pain and follow-up x-ray of the abdomen consistent with gastroenteritis. Patient continues to report multiple episodes of loose stools and per nursing staff patient was having somewhat formed fecal matter is well. Will obtain C. diff to rule out as patient has been continued on antibiotics. Patient denies nausea or vomiting and tolerating diet and would recommend small frequent meals. Patient with significant weakness will be having physical therapy reevaluation. Patient is a long-term resident at [facility] and will be returning there on discharge. Patient continues with hematuria although slightly improved and hemoglobin remained stable. Urology has evaluated the patient with no plans for surgical intervention at this time recommend monitoring possible outpatient follow-up. 04/09/2023 Patient is evaluated today standing up at the bedside continues to have loose stools. Continues on IV antibiotics and general surgery following closely plans to undergo colonoscopy on Tuesday. 04/10/2023 Patient is evaluated today sitting up at the bedside continues with multiple epi sodes of loose stools. She is being prepped for colonoscopy tomorrow. On IV vancomycin and also on IV ceftriaxone and oral flagyl. Remains on room air. Has no acute complaints. She has been able to transition herself [place] [facility] [place] back. Hemoglobin remains stable. Review of systems: Constitutional: No reports of fatigue, fever, or chills Cardiovascular: No reports of chest pain or palpitations Respiratory: No reports of shortness of breath or cough GI: No reports of nausea, vomiting, reports diarrhea, reports continued abdominal pain and continued episodes of loose stools : reports of dysuria and pain with urination Neurovascular: reports of generalized weakness All medications have been reviewed PHYSICAL EXAMINATION: Patient is sitting up in the bed. Patient appears somewhat anxious today and frustrated. awake alert and oriented.. Obese HEENT: Normocephalic. Neck is supple. Pupils reactive. Nostrils clear. Oral cavity is moist. Neck reveals no JVD, carotid bruits, or thyromegaly. CHEST EXAMINATION: Trachea is central. Symmetrical expansion. Lung nielson clear to auscultation and percussion. CARDIAC: Normal S1, S2 with no gallops. No murmurs ABDOMEN: Soft. Bowel sounds present. Patient does have generalized tenderness on palpation. No Guarding. No rigidity.. No abdominal bruits. Extremities: reveal trace pedal edema. No clubbing or cyanosis Neurologically awake, alert, oriented x3. Able to move all extremities. Minimal left-sided weakness. Skin: No rash or skin lesions. Psychiatric: Cooperative. Non-suicidal Musculoskeletal: No joint swelling or deformity. Assessment: Acute urinary tract infection with dysuria and hematuria. Cultures finalized showing MRSA Possible Pelvic inflammatory disease. Patient does have generalized lower abdominal pain mainly right lower quadrant. CT findings of generalized pelvic inflammatory changes versus proctitis. Possible proctitis with ongoing abdominal pain and tenderness Diarrhea, rule out C. diff Acute kidney injury likely prerenal. Baseline creatinine 0.8 Atrial fibrillation on anticoagulation with Eliquis although having increased hematuria and will hold anticoagulation for now, continue subcutaneous heparin per cardiology Hypertension Diabetes type 2 insulin-dependent History of CVA with right-sided mild residual weakness Rheumatoid arthritis patient is on methotrexate and Imuran Anxiety/depression Prior history of smoking History of CBD Gummies use for pain Chronic pain Constipation history GI bleed prophylaxis with PPI DVT prophylaxis, subcutaneous heparin Obesity with a BMI of 32.1 Full code Plan: Patient will be continued on gentle IV hydration. Continue with antibiotics with infectious disease following. Cultures finalized showing MRSA and patient is continued on ceftriaxone and Flagyl. Patient on vancomycin as well. Infectious disease making adjustments to medications General surgery evaluated the patient recommending colonoscopy which is scheduled for Tuesday04/11/2023 Patient with noted gross hematuria although slightly improved and hemoglobin is currently stable above 9. We'll monitor with follow-up labs. Urology evaluated the patient with no plans for immediate surgical intervention recommending outpatient follow-up. Hematuria most likely secondary to urinary tract infection per urology Continue telemetry monitoring Continue monitoring Accu-Cheks before meals and at bedtime and will continue with insulin/sliding scale regimen The impression and plan of care has been dictated by Diana León, Nurse Practitioner as directed. Dr. Tyrese MD I have performed a history and physical examination and medical decision making of this patient, discussed the same with the dictator, and agree with the dictators assessment and plan as written, documented as a scribe. Based on total visit time, I have performed more than 50% of this visit. Objective - Vital Signs Vital signs: Vital Signs Temp 97.9 F 04/10/23 07:05 Pulse 87 04/10/23 07:05 Resp 19 04/10/23 07:05 BP 134/92 04/10/23 07:05 Pulse Ox 99 04/10/23 07:05 FiO2 Intake & Output 04/09/23 04/10/23 04/10/23 18:59 06:59 18:59 Intake Total 1620 1140 Balance 1620 1140 Weight 80.3 kg Intake: Intake, IV Titration 900 900 Amount Lactated Ringers 1,000 ml 900 900 @ 75 mls/hr IV .[id number] Rx#:[id number] Oral 720 240 Other: Voiding Method Bedside Commode Bedside Commode Diaper # Voids 1 2 # Bowel Movements 1 1 - Labs CBC & Chem 7: 04/09/23 07:09 04/10/23 06:33 Labs: Abnormal Lab Results - Last 24 Hours (Table) 04/09/23 04/09/23 04/09/23 Range/Units 11:08 16:05 20:33 POC Glucose (mg/dL) 128 H 120 H 127 H (70-110) mg/dL 04/10/23 Range/Units 06:18 POC Glucose (mg/dL) 133 H (70-110) mg/dL Microbiology - Last 24 Hours (Table) 04/08/23 13:25 Blood Culture - Preliminary Blood Assessment and Plan Time with Patient: Less than 30
[2023-04-10 17:08] LABS: Glucose,Whole Blood 110 mg/dL (70-110)
--- NOTE | 2023-04-10 18:00 | P.PN ---
Subjective Progress Note Date: 04/09/23 Principal diagnosis: Reason for follow-up is urine tract infection and a question of proctitis. Patient is a 73-year-old -[place] female with a past medical history significant for diabetes mellitus hypertension atrial fibrillation CVA spinal stenosis history of smoking patient was brought into the hospital for evaluation of right-sided abdominal pain, also have urinary symptoms did have a fever CT abdominal pelvis with bladder wall thickening and surrounding fat stranding and there was question of possible mild perirectal and presacral fat stranding. On today's evaluation that is 04/09/2023 the patient remains to be afebrile the patient is breathing comfortably on room air without need for supplemental oxygen, the patient denies any chest pain, the patient denies chest pain shortness of breath or cough, patient denies having nausea no vomiting the patient abdominal pain has improved denies having any diarrhea or hematochezia Patient white count is 3.3, creatinine 0.76 Objective - Vital Signs Vital signs: Vital Signs Temp 97.5 F L 04/09/23 00:48 Pulse 76 04/09/23 00:48 Resp 19 04/09/23 00:48 BP 110/75 04/09/23 00:48 Pulse Ox 97 04/09/23 00:48 FiO2 Intake & Output 04/08/23 04/09/23 04/09/23 18:59 06:59 18:59 Weight 76.9 kg Other: Voiding Method External Catheter External Catheter # Voids 1 4 # Bowel Movements 1 - Exam GENERAL DESCRIPTION: An elderly female lying in bed in no distress RESPIRATORY SYSTEM: Unlabored breathing , decreased breath sounds at bases HEART: S1 S2 regular rate and rhythm , ABDOMEN: Soft , no tenderness EXTREMITIES: No edema feet - Labs CBC & Chem 7: 04/09/23 07:09 04/10/23 06:33 Labs: Abnormal Lab Results - Last 24 Hours (Table) 04/08/23 04/08/23 04/08/23 Range/Units 05:49 05:49 05:49 RBC 3.27 L (4.10-5.20) X 10*6/uL Hgb 9.6 L (12.0-15.0) g/dL Hct 31.3 L (37.2-46.3) % MCHC 30.7 L (32.0-37.0) g/dL RDW 17.4 H (11.5-14.5) % MPV 9.2 L (9.5-12.2) FL Chloride 111 H (96-109) mmol/L Carbon Dioxide 21.0 L (21.6-31.8) mmol/L Glucose 123 H (70-110) mg/dL POC Glucose (mg/dL) (70-110) mg/dL Troponin I (0.000-0.034) ng/mL C-Reactive Protein 15.6 H (<1.0) mg/dL 04/08/23 04/08/23 04/08/23 Range/Units 09:15 11:41 16:34 RBC (4.10-5.20) X 10*6/uL Hgb (12.0-15.0) g/dL Hct (37.2-46.3) % MCHC (32.0-37.0) g/dL RDW (11.5-14.5) % MPV (9.5-12.2) FL Chloride (96-109) mmol/L Carbon Dioxide (21.6-31.8) mmol/L Glucose (70-110) mg/dL POC Glucose (mg/dL) 130 H 124 H (70-110) mg/dL Troponin I 0.084 H* (0.000-0.034) ng/mL C-Reactive Protein (<1.0) mg/dL 04/08/23 04/09/23 Range/Units 19:58 05:55 RBC (4.10-5.20) X 10*6/uL Hgb (12.0-15.0) g/dL Hct (37.2-46.3) % MCHC (32.0-37.0) g/dL RDW (11.5-14.5) % MPV (9.5-12.2) FL Chloride (96-109) mmol/L Carbon Dioxide (21.6-31.8) mmol/L Glucose (70-110) mg/dL POC Glucose (mg/dL) 148 H 124 H (70-110) mg/dL Troponin I (0.000-0.034) ng/mL C-Reactive Protein (<1.0) mg/dL Assessment and Plan (1) MRSA (methicillin resistant staph aureus) culture positive Current Visit: Yes Status: Acute Code(s): Z22.322 - CARRIER OR SUSPECTED CARRIER OF METHICILLIN RESIS STAPH SNOMED Code(s): 855045925 (2) UTI (urinary tract infection) Current Visit: Yes Status: Acute Code(s): N39.0 - URINARY TRACT INFECTION, SITE NOT SPECIFIED SNOMED Code(s): 85000131 (3) Proctitis Current Visit: Yes Status: Acute Code(s): K62.89 - OTHER SPECIFIED DISEASES OF ANUS AND RECTUM SNOMED Code(s): 5700156 Plan: 1patient presented hospital with abdominal pain hematuria burning of urination this patient who did have a significantly positive UA with evidence of cystitis on the CT did not mention any hydronephrosis or renal stone. 2blood cultures currently pending urine culture has been finalized as MRSA 3patient to continue the vancomycin for her MRSA UTI. 4patient did have improvement in her abdominal pain with addition of Rocephin and Flagyl to continue and monitor clinical course closely Dictation was produced using [employer] dictation software. please excuse any grammatical, word or spelling errors.
--- NOTE | 2023-04-10 18:01 | P.PN ---
Subjective Progress Note Date: 04/10/23 Principal diagnosis: Reason for follow-up is urine tract infection and a question of proctitis. Patient is a 73-year-old -[place] female with a past medical history significant for diabetes mellitus hypertension atrial fibrillation CVA spinal stenosis history of smoking patient was brought into the hospital for evaluation of right-sided abdominal pain, also have urinary symptoms did have a fever CT abdominal pelvis with bladder wall thickening and surrounding fat stranding and there was question of possible mild perirectal and presacral fat stranding. On today's evaluation that is 04/10/2023 the patient continues to be afebrile, the patient is breathing comfortably on room air, the patient denies having any chest pain the patient denies any chest pain shortness of breath or cough, the patient denies nausea vomiting abdominal pain and no diarrhea, feeling better Patient white count is 3.3 as of yesterday creatinine 0.77, stool for C. difficile negative Objective - Vital Signs Vital signs: Vital Signs Temp 97.4 F L 04/10/23 14:24 Pulse 56 L 04/10/23 14:24 Resp 19 04/10/23 14:24 BP 148/84 04/10/23 14:24 Pulse Ox 98 04/10/23 14:24 FiO2 Intake & Output 04/09/23 04/10/23 04/10/23 18:59 06:59 18:59 Intake Total 1620 1140 3425 Balance 1620 1140 3425 Weight 80.3 kg Intake: Intake, IV Titration 900 900 925 Amount Lactated Ringers 1,000 ml 900 900 575 @ 75 mls/hr IV .[id number] [facility] Rx#:[id number] Vancomycin 1,250 mg In 250 Sodium Chloride 0.9% 250 ml @ 125 mls/hr IVPB Q24HR [facility] Rx#:[id number] cefTRIAXone 2 gm In 100 Sodium Chloride 0.9% 50 ml @ 100 mls/hr IVPB Q24HR [facility] Rx#:[id number] Oral 141 560 6005 Other: Voiding Method Bedside Commode Bedside Commode Diaper # Voids 1 2 2 # Bowel Movements 1 1 2 - Exam GENERAL DESCRIPTION: An elderly female lying in bed in no distress RESPIRATORY SYSTEM: Unlabored breathing , decreased breath sounds at bases HEART: S1 S2 regular rate and rhythm , ABDOMEN: Soft , no tenderness EXTREMITIES: No edema feet - Labs CBC & Chem 7: 04/09/23 07:09 04/10/23 06:33 Labs: Abnormal Lab Results - Last 24 Hours (Table) 04/09/23 04/10/23 Range/Units 20:33 06:18 POC Glucose (mg/dL) 127 H 133 H (70-110) mg/dL Microbiology - Last 24 Hours (Table) 04/08/23 13:25 Blood Culture - Preliminary Blood Assessment and Plan (1) MRSA (methicillin resistant staph aureus) culture positive Current Visit: Yes Status: Acute Code(s): Z22.322 - CARRIER OR SUSPECTED CARRIER OF METHICILLIN RESIS STAPH SNOMED Code(s): 416849741 (2) UTI (urinary tract infection) Current Visit: Yes Status: Acute Code(s): N39.0 - URINARY TRACT INFECTION, SITE NOT SPECIFIED SNOMED Code(s): 25869675 (3) Proctitis Current Visit: Yes Status: Acute Code(s): K62.89 - OTHER SPECIFIED DISEASES OF ANUS AND RECTUM SNOMED Code(s): 2180783 Plan: 1patient presented hospital with abdominal pain hematuria burning of urination this patient who did have a significantly positive UA with evidence of cystitis on the CT did not mention any hydronephrosis or renal stone. 2blood cultures currently pending urine culture has been finalized as MRSA 3patient to continue the vancomycin for her MRSA UTI.Urine is not as bloody per the nursing staff 4patient to continue with Rocephin and Flagyl concerning for proctitis, apparently the patient is currently getting bowel prep for possible colonoscopy for surgery in the morning Dictation was produced using [employer] dictation software. please excuse any grammatical, word or spelling errors. Time with Patient: Less than 30
[2023-04-10 20:06] LABS: Glucose,Whole Blood 115 mg/dL (70-110)
[2023-04-10] MEDS: SENNOSIDES 8.6 MG TAB PO SCH (21:11)
[2023-04-10] MEDS: traZODone HCL 50 MG TAB PO SCH (21:11)
[2023-04-11] MEDS: LACTATED RINGERS 1,000 ML IV SCH ×2 (00:08→17:11)
[2023-04-11] MEDS: azaTHIOprine 50 MG TAB PO SCH ×3 (05:06→20:33)
[2023-04-11 05:35] LABS: African American GFR (CKD) >90 (>60 ml/min/1.73 sqM); Anion Gap 9 mmol/L; Blood Urea Nitrogen 7 mg/dL (7-17); Calcium 9.6 mg/dL (8.4-10.2); Carbon Dioxide 22 mmol/L (22-30); Chloride 109 mmol/L (98-107); Glucose 90 mg/dL (74-99); Magnesium 1.5 mg/dL (1.6-2.3); Non-African American GFR(CKD) 86 (>60 ml/min/1.73 sqM); Potassium 3.3 mmol/L (3.5-5.1); Sodium 140 mmol/L (137-145)
[2023-04-11 06:02] LABS: Glucose,Whole Blood 104 mg/dL (70-110)
[2023-04-11] MEDS: OXYCODONE MYRISTATE 9 MG PO SCH ×2 (07:42→20:32)
[2023-04-11] MEDS: DOCUSATE 100 MG CAP PO SCH ×2 (07:42→17:10)
[2023-04-11] MEDS: LACTULOSE 20 GM/30 ML CUP PO SCH ×2 (07:43→17:10)
[2023-04-11] MEDS ORDERED: POTASSIUM CHLORIDE ER 20 MEQ TAB.ER PO STA (08:35)
[2023-04-11 08:53] LABS: Basophils # (A) 0.03 X 10*3/uL (0.00-0.10); Basophils % (A) 0.7 %; Eosinophils # (A) 0.15 X 10*3/uL (0.04-0.35); Eosinophils % (A) 3.5 %; HGB 8.7 g/dL (12.0-15.0); Lymphocytes # (A) 1.23 X 10*3/uL (0.90-5.00); Lymphocytes % (A) 29.1 %; MCH 29.9 pg (27.0-32.0); MCHC 32.2 g/dL (32.0-37.0); MCV 92.8 FL (80.0-97.0); Mean Platelet Volume 8.8 FL (9.5-12.2); Monocytes # (A) 0.41 X 10*3/uL (0.20-1.00); Monocytes % (A) 9.7 %; NRBC Per 100 WBC 0.02 X 10*3/uL (0.00-0.01); Neutrophils # (A) 2.38 X 10*3/uL (1.80-7.70); Neutrophils % (A) 56.3 %; Platelet Count 306 X 10*3/uL (140-440); RBC 2.91 X 10*6/uL (4.10-5.20); RDW 17.2 % (11.5-14.5); WBC 4.23 X 10*3/uL (4.50-10.00)
[2023-04-11] MEDS: MAGNESIUM SULFATE-D5W PMX 1 GM in DEXTROSE/WATER 1 100ML.BAG IVPB SCH ×2 (08:54→11:29)
[2023-04-11] MEDS: VANCOMYCIN 1,250 MG in SODIUM CHLORIDE 0.9% 250 ML IVPB SCH ×2 (08:54→08:57)
[2023-04-11] MEDS: PANTOPRAZOLE 40 MG/10 ML VIAL IVP SCH ×2 (08:55→20:33)
[2023-04-11] MEDS: FUROSEMIDE 20 MG TAB PO SCH (08:56)
[2023-04-11] MEDS: ISOSORBIDE MONONITRATE ER 30 MG TAB.ER.24H PO SCH (08:56)
[2023-04-11] MEDS: SPIRONOLACTONE 25 MG TAB PO SCH (08:56)
[2023-04-11] MEDS: DOXYCYCLINE 100 MG CAP PO SCH ×2 (08:56→20:33)
[2023-04-11] MEDS: METOPROLOL TARTRATE 50 MG TAB PO SCH ×2 (08:56→17:40)
[2023-04-11] MEDS: metroNIDAZOLE 500 MG TAB PO SCH ×3 (08:57→20:33)
[2023-04-11] MEDS: ESCITALOPRAM 10 MG TAB PO SCH (08:57)
[2023-04-11] MEDS: HEPARIN SODIUM,PORCINE 5,000 UNIT/ML 1 ML VIAL SQ SCH ×2 (08:57→20:33)
[2023-04-11] MEDS: CYANOCOBALAMIN 500 MCG TAB PO SCH (08:57)
[2023-04-11] MEDS ORDERED: metHOTREXate sodium 2.5 MG TAB PO SCH (09:00)
[2023-04-11 11:43] LABS: Glucose,Whole Blood 114 mg/dL (70-110)
--- NOTE | 2023-04-11 12:34 | P.PN ---
Subjective Progress Note Date: 04/11/23 CHIEF COMPLAINT: abdominal pain HISTORY OF PRESENT ILLNESS: Patient completed bowel prep. Stools are clearish. Denies abdominal pain. Vitals stable. WBC 4.23 hemoglobin is down from 9.7-8.7 platelets 306 sodium 140 potassium 3.3 creatinine 0.71 magnesium 1.5 PHYSICAL EXAM: VITAL SIGNS: Reviewed. GENERAL: Well-developed in no acute distress. ABDOMEN: Soft. Nondistended. ASSESSMENT: 1. Possible proctitis. Rectal wall thickening versus partial distention and mild perirectal and presacral fat stranding noted on computed tomography scan 2. UTI 3. Hypokalemia and hypomagnesemia PLAN: -Patient scheduled for colonoscopy today with Dr. jauregui -Replace potassium and magnesium -Eliquis on Hold Physician Rocket Engine Tester note has been reviewed by physician. Signing provider agrees with the documented findings, assessment, and plan of care. Objective - Vital Signs Vital signs: Vital Signs Temp 97.7 F 04/11/23 08:00 Pulse 64 04/11/23 08:00 Resp 18 04/11/23 02:00 BP 162/88 04/11/23 08:00 Pulse Ox 95 04/11/23 08:00 FiO2 Intake & Output 04/10/23 04/11/23 04/11/23 18:59 06:59 18:59 Intake Total 4340 340 Balance 4340 340 Weight 80.9 kg Intake: Intake, IV Titration 1500 Amount Lactated Ringers 1,000 ml 1150 @ 75 mls/hr IV .[id number] [facility] Rx#:[id number] Vancomycin 1,250 mg In 250 Sodium Chloride 0.9% 250 ml @ 125 mls/hr IVPB Q24HR [facility] Rx#:[id number] cefTRIAXone 2 gm In 100 Sodium Chloride 0.9% 50 ml @ 100 mls/hr IVPB Q24HR [facility] Rx#:[id number] Oral 2840 340 Other: Voiding Method Diaper Bedside Commode # Voids 2 2 2 # Bowel Movements 2 1 1 - Labs CBC & Chem 7: 04/11/23 04:25 04/11/23 04:25 Labs: Abnormal Lab Results - Last 24 Hours (Table) 04/10/23 04/11/23 04/11/23 Range/Units 20:03 04:25 04:25 WBC 4.23 L (4.50-10.00) X 10*3/uL RBC 2.91 L (4.10-5.20) X 10*6/uL Hgb 8.7 L (12.0-15.0) g/dL Hct 27.0 L (37.2-46.3) % RDW 17.2 H (11.5-14.5) % MPV 8.8 L (9.5-12.2) FL NRBC/100 WBC Diff 0.02 H (0.00-0.01) X 10*3/uL Potassium 3.3 L (3.5-5.1) mmol/L Chloride 109 H (98-107) mmol/L POC Glucose (mg/dL) 115 H (70-110) mg/dL Magnesium 1.5 L (1.6-2.3) mg/dL 04/11/23 Range/Units 11:36 WBC (4.50-10.00) X 10*3/uL RBC (4.10-5.20) X 10*6/uL Hgb (12.0-15.0) g/dL Hct (37.2-46.3) % RDW (11.5-14.5) % MPV (9.5-12.2) FL NRBC/100 WBC Diff (0.00-0.01) X 10*3/uL Potassium (3.5-5.1) mmol/L Chloride (98-107) mmol/L POC Glucose (mg/dL) 114 H (70-110) mg/dL Magnesium (1.6-2.3) mg/dL Microbiology - Last 24 Hours (Table) 04/08/23 13:25 Blood Culture - Preliminary Blood
--- NOTE | 2023-04-11 12:41 | P.PN ---
Subjective Progress Note Date: 04/11/23 Principal diagnosis: Reason for follow-up is urine tract infection and a question of proctitis. Patient is a 73-year-old -[place] female with a past medical history significant for diabetes mellitus hypertension atrial fibrillation CVA spinal stenosis history of smoking patient was brought into the hospital for evaluation of right-sided abdominal pain, also have urinary symptoms did have a fever CT abdominal pelvis with bladder wall thickening and surrounding fat stranding and there was question of possible mild perirectal and presacral fat stranding. On today's evaluation that is 04/11/2023 the patient remains to be afebrile, the patient is breathing comfortably on room air, the patient denies having any chest pain, shortness of breath or cough, the patient denies nausea vomiting abdominal pain and no diarrhea, no new symptoms Patient white count is 5.23, creatinine 0.71 blood culture has been negative urine with MRSA Objective - Vital Signs Vital signs: Vital Signs Temp 97.7 F 04/11/23 08:00 Pulse 64 04/11/23 08:00 Resp 18 04/11/23 02:00 BP 162/88 04/11/23 08:00 Pulse Ox 95 04/11/23 08:00 FiO2 Intake & Output 04/10/23 04/11/23 04/11/23 18:59 06:59 18:59 Intake Total 4340 340 Balance 4340 340 Weight 80.9 kg Intake: Intake, IV Titration 1500 Amount Lactated Ringers 1,000 ml 1150 @ 75 mls/hr IV .[id number] [facility] Rx#:[id number] Vancomycin 1,250 mg In 250 Sodium Chloride 0.9% 250 ml @ 125 mls/hr IVPB Q24HR [facility] Rx#:[id number] cefTRIAXone 2 gm In 100 Sodium Chloride 0.9% 50 ml @ 100 mls/hr IVPB Q24HR [facility] Rx#:[id number] Oral 2840 340 Other: Voiding Method Diaper Bedside Commode # Voids 2 2 2 # Bowel Movements 2 1 1 - Exam GENERAL DESCRIPTION: An elderly female lying in bed in no distress RESPIRATORY SYSTEM: Unlabored breathing , decreased breath sounds at bases HEART: S1 S2 regular rate and rhythm , ABDOMEN: Soft , no tenderness EXTREMITIES: No edema feet - Labs CBC & Chem 7: 04/11/23 04:25 01/08/24 04:25 Labs: Abnormal Lab Results - Last 24 Hours (Table) 04/10/23 04/11/23 04/11/23 Range/Units 20:03 04:25 04:25 WBC 4.23 L (4.50-10.00) X 10*3/uL RBC 2.91 L (4.10-5.20) X 10*6/uL Hgb 8.7 L (12.0-15.0) g/dL Hct 27.0 L (37.2-46.3) % RDW 17.2 H (11.5-14.5) % MPV 8.8 L (9.5-12.2) FL NRBC/100 WBC Diff 0.02 H (0.00-0.01) X 10*3/uL Potassium 3.3 L (3.5-5.1) mmol/L Chloride 109 H (98-107) mmol/L POC Glucose (mg/dL) 115 H (70-110) mg/dL Magnesium 1.5 L (1.6-2.3) mg/dL 04/11/23 Range/Units 11:36 WBC (4.50-10.00) X 10*3/uL RBC (4.10-5.20) X 10*6/uL Hgb (12.0-15.0) g/dL Hct (37.2-46.3) % RDW (11.5-14.5) % MPV (9.5-12.2) FL NRBC/100 WBC Diff (0.00-0.01) X 10*3/uL Potassium (3.5-5.1) mmol/L Chloride (98-107) mmol/L POC Glucose (mg/dL) 114 H (70-110) mg/dL Magnesium (1.6-2.3) mg/dL Microbiology - Last 24 Hours (Table) 04/08/23 13:25 Blood Culture - Preliminary Blood Assessment and Plan (1) MRSA (methicillin resistant staph aureus) culture positive Current Visit: Yes Status: Acute Code(s): Z22.322 - CARRIER OR SUSPECTED CARRIER OF METHICILLIN RESIS STAPH SNOMED Code(s): 108881670 (2) UTI (urinary tract infection) Current Visit: Yes Status: Acute Code(s): N39.0 - URINARY TRACT INFECTION, SITE NOT SPECIFIED SNOMED Code(s): 59312590 (3) Proctitis Current Visit: Yes Status: Acute Code(s): K62.89 - OTHER SPECIFIED DISEASES OF ANUS AND RECTUM SNOMED Code(s): 7394128 Plan: 1patient presented hospital with abdominal pain hematuria burning of urination this patient who did have a significantly positive UA with evidence of cystitis on the CT did not mention any hydronephrosis or renal stone. 2blood cultures currently pending urine culture has been finalized as MRSA 3patient to continue the vancomycin for her MRSA UTI.and will monitor clinical course closely 4patient to continue with Rocephin and Flagyl concerning for proctitis, patient is currently waiting for colonoscopy scheduled for this afternoon Dictation was produced using [employer] dictation software. please excuse any grammatical, word or spelling errors. Time with Patient: Less than 30
--- NOTE | 2023-04-11 15:25 | P.PN ---
Subjective Progress Note Date: 04/11/23 Patient is a 73-year-old female with known history of hypertension, diabetes type 2, atrial fibrillation on anticoagulation with Eliquis, history of CVA with minimal left-sided weakness and spinal stenosis, anxiety/depression, prior history of smoking, chronic pain patient presented to ER with complaints of abdominal pain mainly in the right lower quadrant. Patient has been having pain for the past 3 days. she was also having hematuria and was seen by her physician and was started antibiotics in the form of Levaquin. Patient presented to ER with out significant improvement. Patient otherwise denies any complaints of fever. No chills. Does have nausea and also some vomiting. No complaints of worsening back pain flank pain. No complaints of diarrhea. Patient does have history of constipation. On admission CT of the abdomen pelvis showed urinary bladder is minimally distended and bladder wall thickening and surrounding fat stranding correlate for cystitis. Rectal wall thickening versus possible distention. Mild perirectal and sacral fat stranding may be related to generalized pelvic inflammatory changes or proctitis. Laboratory data showed WBC 9.7 hemoglobin 10.8 and platelets 248 Sodium 139 potassium 3.7 chloride 103 bicarb is 23 BUN 20 and creatinine 1.23. Blood sugar 140 Liver edge is not elevated. Total bilirubin 1.2 amylase 47 lipase 50 and urinalysis showed turbid with 2+ protein, 4+ glucose, large blood, large leukocyte esterase and elevated RBCs and WBCs. [id number] Patient is seen in follow-up in the ICU as an overflow from 3 S. being started on amiodarone drip and patient is continued on heparin with cardiology along with general surgery and infectious disease following. Urine cultures thus far showing presumptive staph aureus and patient is maintained on ceftriaxone along with Flagyl. Patient did have an elevated troponin and was transferred over h ere for further monitoring and adjustments to medications being made and heparin is being discontinued per cardiology. Patient continues on antibiotics and being adjusted to vancomycin per infectious disease and we'll monitor and await for finalized cultures. Patient reports to feeling improved from yesterday although continues with generalized weakness and feeling unwell. Gen. surgery for evaluation of abdominal pain. Patient is currently afebrile with no reports of chest pain or shortness of breath. Patient currently sitting up eating in bed at this time. Awaiting transfer to [facility] of the bed is available 04/07/2023 Patient is seen and evaluated in follow-up this morning with multiple medical consultations following including infectious disease, general surgery, and cardiology. Patient noted to have gross hematuria in the airway device and had been recently resumed on eliquis and will hold this for now and continue with subcutaneous heparin and will also consult urology and appreciate input and recommendations. Patient continues with diffuse abdominal pain and reports pain and burning with urination and was evaluated by general surgery recommending colonoscopy on Tuesday. Preliminary cultures finalized showing MRSA and patient is maintained on ceftriaxone along with Flagyl. Patient did receive a dose of vancomycin. Patient is currently afebrile with no reported chest pain or shortness of breath. Blood pressures are soft and medications are being adjusted per cardiology. 04/08/2023 Patient is seen in follow-up this morning with multiple medical consultations following. Patient continues on antibiotics with infectious disease following a significant UTI and cultures are finalized showing MRSA. CT suggestive of colitis and patient continues to have severe abdominal pain and follow-up x-ray of the abdomen consistent with gastroenteritis. Patient continues to report multiple episodes of loose stools and per nursing staff patient was having somewhat formed fecal matter is well. Will obtain C. diff to rule out as patient has been continued on antibiotics. Patient denies nausea or vomiting and tolerating diet and would recommend small frequent meals. Patient with significant weakness will be having physical therapy reevaluation. Patient is a long-term resident at [facility] and will be returning there on discharge. Patient continues with hematuria although slightly improved and hemoglobin remained stable. Urology has evaluated the patient with no plans for surgical intervention at this time recommend monitoring possible outpatient follow-up. 04/09/2023 Patient is evaluated today standing up at the bedside continues to have loose stools. Continues on IV antibiotics and general surgery following closely plans to undergo colonoscopy on Tuesday. 04/10/2023 Patient is evaluated today sitting up at the bedside continues with multiple e pisodes of loose stools. She is being prepped for colonoscopy tomorrow. On IV vancomycin and also on IV ceftriaxone and oral flagyl. Remains on room air. Has no acute complaints. She has been able to transition herself to the [facility] and back. Hemoglobin remains stable. 04/11/2023 Patient is seen in follow-up today underwent GoLYTELY prep and scheduled for colonoscopy today currently nothing by mouth. Patient is maintained on antibiotics in the form of vancomycin along with ceftriaxone and Flagyl with infectious disease following. Patient reports her abdominal pain is slightly improved and currently awaiting colonoscopy report. Will awaiting follow-up with general surgery. Anticoagulation remains on hold and will follow-up on when to resume. Patient is currently afebrile with no reports of chest pain or shortness of breath. Diet to be resumed after colonoscopy. Plan is for returning to [facility] where she is a long-term resident and will discuss further with consultations about discharge planning over the next few days. Review of systems: Constitutional: No reports of fatigue, fever, or chills Cardiovascular: No reports of chest pain or palpitations Respiratory: No reports of shortness of breath or cough GI: No reports of nausea, vomiting, reports multiple episodes of diarrhea, reports some improvement in abdominal pain : reports of dysuria and pain with urination Neurovascular: reports of generalized weakness All medications have been reviewed PHYSICAL EXAMINATION: Patient is sitting up in the bed. Patient is sitting up at the side of the bed. awake alert and oriented.. Obese HEENT: Normocephalic. Neck is supple. Pupils reactive. Nostrils clear. Oral cavi ty is moist. Neck reveals no JVD, carotid bruits, or thyromegaly. CHEST EXAMINATION: Trachea is central. Symmetrical expansion. Lung nielson clear to auscultation and percussion. CARDIAC: Normal S1, S2 with no gallops. No murmurs ABDOMEN: Soft. Bowel sounds present. Patient does have generalized tenderness on palpation. No Guarding. No rigidity.. No abdominal bruits. Extremities: reveal trace pedal edema. No clubbing or cyanosis Neurologically awake, alert, oriented x3. Able to move all extremities. Minimal left-sided weakness. Skin: No rash or skin lesions. Psychiatric: Cooperative. Non-suicidal Musculoskeletal: No joint swelling or deformity. Assessment: Acute urinary tract infection with dysuria and hematuria. Cultures finalized showing MRSA Possible Pelvic inflammatory disease. Patient does have generalized lower abdominal pain mainly right lower quadrant. CT findings of generalized pelvic inflammatory changes versus proctitis. Possible proctitis with ongoing abdominal pain and tenderness Diarrhea, ruled out C. diff Acute kidney injury likely prerenal. Baseline creatinine 0.8 Atrial fibrillation on anticoagulation with Eliquis although having increased hematuria and will hold anticoagulation for now, continue subcutaneous heparin per cardiology Hypertension Diabetes type 2 insulin-dependent History of CVA with right-sided mild residual weakness Rheumatoid arthritis patient is on methotrexate and Imuran Anxiety/depression Prior history of smoking History of CBD Gummies use for pain Chronic pain Constipation history GI bleed prophylaxis with PPI DVT prophylaxis, subcutaneous heparin Obesity with a BMI of 32.1 Full code Plan: Patient will be continued on gentle IV hydration. Continue with antibiotics with infectious disease following. Cultures finalized showing MRSA and patient is continued on ceftriaxone and Flagyl. Patient on vancomycin as well. Infectious disease making adjustments to medications General surgery evaluated the patient and scheduled to undergo colonoscopy today which is currently pending. Patient did complete the GoLYTELY prep and is currently nothing by mouth. Hemoglobin is stable at 8.7 today. Potassium 3.3 and will replace per protocol along with magnesium which is 1.5. Repeat labs for a.m. ordered. Continue telemetry monitoring Continue monitoring Accu-Cheks before meals and at bedtime and will continue wi th insulin/sliding scale regimen Await PT/OT therapy to evaluate the patient and discuss further with case management on discharge planning as patient will be returning to [facility] on discharge. Possible discharge in the next 24-48 hours The impression and plan of care has been dictated by Any Peguero, Nurse Practitioner as directed. Dr. Dmitry MD I have performed a history and examination and MDM of this patient, discussed the same with the dictator, and agree with the dictator's assessment and plan as written ,documented as a scribe. Based on total visit time, I have performed more than 50% of the visit. Objective - Vital Signs Vital signs: Vital Signs Temp 98.0 F 04/11/23 14:00 Pulse 77 04/11/23 14:00 Resp 18 04/11/23 02:00 BP 159/90 04/11/23 14:00 Pulse Ox 98 04/11/23 14:00 FiO2 Intake & Output 04/10/23 04/11/23 04/11/23 18:59 06:59 18:59 Intake Total 4340 340 Balance 4340 340 Weight 80.9 kg Intake: Intake, IV Titration 1500 Amount Lactated Ringers 1,000 ml 1150 @ 75 mls/hr IV .[id number] [facility] Rx#:[id number] Vancomycin 1,250 mg In 250 Sodium Chloride 0.9% 250 ml @ 125 mls/hr IVPB Q24HR [facility] Rx#:[id number] cefTRIAXone 2 gm In 100 Sodium Chloride 0.9% 50 ml @ 100 mls/hr IVPB Q24HR [facility] Rx#:[id number] Oral 2840 340 Other: Voiding Method Diaper Bedside Commode Bedside Commode # Voids 2 2 2 # Bowel Movements 2 1 1 - Labs CBC & Chem 7: 04/11/23 04:25 04/11/23 04:25 Labs: Abnormal Lab Results - Last 24 Hours (Table) 04/10/23 04/11/23 04/11/23 Range/Units 20:03 04:25 04:25 WBC 4.23 L (4.50-10.00) X 10*3/uL RBC 2.91 L (4.10-5.20) X 10*6/uL Hgb 8.7 L (12.0-15.0) g/dL Hct 27.0 L (37.2-46.3) % RDW 17.2 H (11.5-14.5) % MPV 8.8 L (9.5-12.2) FL NRBC/100 WBC Diff 0.02 H (0.00-0.01) X 10*3/uL Potassium 3.3 L (3.5-5.1) mmol/L Chloride 109 H (98-107) mmol/L POC Glucose (mg/dL) 115 H (70-110) mg/dL Magnesium 1.5 L (1.6-2.3) mg/dL 04/11/23 Range/Units 11:36 WBC (4.50-10.00) X 10*3/uL RBC (4.10-5.20) X 10*6/uL Hgb (12.0-15.0) g/dL Hct (37.2-46.3) % RDW (11.5-14.5) % MPV (9.5-12.2) FL NRBC/100 WBC Diff (0.00-0.01) X 10*3/uL Potassium (3.5-5.1) mmol/L Chloride (98-107) mmol/L POC Glucose (mg/dL) 114 H (70-110) mg/dL Magnesium (1.6-2.3) mg/dL Microbiology - Last 24 Hours (Table) 04/08/23 13:25 Blood Culture - Preliminary Blood
[2023-04-11] MEDS ORDERED: PROPOFOL 10 MG/ML 20 ML VIAL IV ONE (16:05)
[2023-04-11] MEDS ORDERED: LACTATED RINGERS 1,000 ML IV ONE ×2 (16:06)
--- NOTE | 2023-04-11 16:26 | P.OP ---
Date of Procedure: 04/11/23 Preoperative Diagnosis: proctitis Postoperative Diagnosis: sigmoid colon polyp diverticulosis Procedure(s) Performed: colonoscopy Anesthesia: MAC Surgeon: Rai Burrell Pathology: other (sigmoid colon polyp) Condition: stable Disposition: PACU Description of Procedure: the patient's placed on the endoscopy table in the lateral position. She received IV sedation. Digital rectal exam was performed. This revealed no abnormalities. The flexible colonoscope was then placed patient anus and passed throughout the entire colon. The ileocecal valve was visualized. The cecum, ascending and transverse colon appeared normal. In the descending and sigmoid colon there was mild diverticulosis. At the 35 cm erma the sigmoid colon there was a polyp seen. This removed with the cold forcep. The scope was brought back the rectum there appeared to be no obvious inflammatory changes the rectum.the scope was then withdrawn from the patient.
[2023-04-11 17:13] LABS: Glucose,Whole Blood 98 mg/dL (70-110)
[2023-04-11] MEDS: HYDROcodone/APAP 10-325MG 1 EACH TAB PO PRN (17:39)
[2023-04-11] MEDS: SENNOSIDES 8.6 MG TAB PO SCH (20:33)
[2023-04-11] MEDS: traZODone HCL 50 MG TAB PO SCH (20:33)
[2023-04-11] MEDS: HYDROmorphone 1 MG/ML 1 ML SYRINGE IVP PRN (20:39)
[2023-04-11 21:04] LABS: Glucose,Whole Blood 137 mg/dL (70-110)
[2023-04-12] MEDS: azaTHIOprine 50 MG TAB PO SCH ×3 (05:32→20:25)
[2023-04-12] MEDS: HYDROmorphone 1 MG/ML 1 ML SYRINGE IVP PRN ×3 (05:32→20:29)
[2023-04-12] MEDS: LACTATED RINGERS 1,000 ML IV SCH ×2 (05:34→20:26)
[2023-04-12 05:55] LABS: Glucose,Whole Blood 112 mg/dL (70-110)
[2023-04-12] MEDS ORDERED: VANCOMYCIN TROUGH DUE 1 EACH MISC MISCELLANE ONE (08:00)
[2023-04-12 08:39] LABS: African American GFR (CKD) 90 (>60 ml/min/1.73 sqM); Anion Gap 12 mmol/L; Blood Urea Nitrogen 7 mg/dL (7-17); Calcium 9.7 mg/dL (8.4-10.2); Carbon Dioxide 23 mmol/L (22-30); Chloride 107 mmol/L (98-107); Glucose 111 mg/dL (74-99); Magnesium 1.7 mg/dL (1.6-2.3); Non-African American GFR(CKD) 78 (>60 ml/min/1.73 sqM); Potassium 3.6 mmol/L (3.5-5.1); Sodium 142 mmol/L (137-145)
[2023-04-12] MEDS: ISOSORBIDE MONONITRATE ER 30 MG TAB.ER.24H PO SCH (08:47)
[2023-04-12] MEDS: metroNIDAZOLE 500 MG TAB PO SCH ×2 (08:47→16:50)
[2023-04-12] MEDS: METOPROLOL TARTRATE 50 MG TAB PO SCH ×2 (08:47→17:43)
[2023-04-12] MEDS: CYANOCOBALAMIN 500 MCG TAB PO SCH (08:47)
[2023-04-12] MEDS: FUROSEMIDE 20 MG TAB PO SCH (08:47)
[2023-04-12] MEDS: PANTOPRAZOLE 40 MG/10 ML VIAL IVP SCH ×2 (08:48→20:26)
[2023-04-12] MEDS: DOCUSATE 100 MG CAP PO SCH ×2 (08:48→17:43)
[2023-04-12] MEDS: LACTULOSE 20 GM/30 ML CUP PO SCH ×2 (08:48→17:43)
[2023-04-12] MEDS: HEPARIN SODIUM,PORCINE 5,000 UNIT/ML 1 ML VIAL SQ SCH ×2 (08:48→20:26)
[2023-04-12] MEDS: SPIRONOLACTONE 25 MG TAB PO SCH (08:48)
[2023-04-12] MEDS: OXYCODONE MYRISTATE 9 MG PO SCH ×2 (08:49→20:37)
[2023-04-12] MEDS: ESCITALOPRAM 10 MG TAB PO SCH (08:49)
[2023-04-12] MEDS: DOXYCYCLINE 100 MG CAP PO SCH (08:49)
[2023-04-12] MEDS ORDERED: Potassium Replacement Protocol 1 EACH MISC MISCELLANE PRN (09:06)
[2023-04-12] MEDS ORDERED: MAGNESIUM SULFATE-D5W PMX 1 GM in DEXTROSE/WATER 1 100ML.BAG IVPB ONE (09:06)
[2023-04-12] MEDS ORDERED: Magnesium Replacement Protocol 1 EACH MISC MISCELLANE PRN (09:06)
[2023-04-12] MEDS: VANCOMYCIN 1,250 MG in SODIUM CHLORIDE 0.9% 250 ML IVPB SCH (10:18)
[2023-04-12] MEDS: POTASSIUM CHLORIDE ER 20 MEQ TAB.ER PO SCH ×3 (10:20→14:07)
[2023-04-12 10:46] LABS: Basophils # (A) 0.04 X 10*3/uL (0.00-0.10); Basophils % (A) 0.8 %; Eosinophils # (A) 0.13 X 10*3/uL (0.04-0.35); Eosinophils % (A) 2.6 %; HCT 28.4 % (37.2-46.3); HGB 9.1 g/dL (12.0-15.0); Lymphocytes # (A) 1.21 X 10*3/uL (0.90-5.00); Lymphocytes % (A) 24.4 %; MCH 29.3 pg (27.0-32.0); MCV 91.3 FL (80.0-97.0); Mean Platelet Volume 8.6 FL (9.5-12.2); Monocytes # (A) 0.32 X 10*3/uL (0.20-1.00); Monocytes % (A) 6.5 %; NRBC Per 100 WBC 0 X 10*3/uL (0.00-0.01); Neutrophils # (A) 3.23 X 10*3/uL (1.80-7.70); Neutrophils % (A) 65.3 %; Platelet Count 364 X 10*3/uL (140-440); RBC 3.11 X 10*6/uL (4.10-5.20); RDW 17.9 % (11.5-14.5); WBC 4.95 X 10*3/uL (4.50-10.00)
[2023-04-12 11:44] LABS: Glucose,Whole Blood 148 mg/dL (70-110)
[2023-04-12] MEDS ORDERED: LINEZOLID 600 MG TAB PO STA (11:58)
[2023-04-12 12:47] LABS: INR 1.1 (<1.2); Prothrombin Time 11.8 sec (10.0-12.5)
--- NOTE | 2023-04-12 14:49 | P.PN ---
Subjective Progress Note Date: 04/12/23 CHIEF COMPLAINT: abdominal pain HISTORY OF PRESENT ILLNESS: Patient status post colonoscopy with results showing sigmoid colon polyp and diverticulosis. Patient is tolerating regular diet. She reports decreased pain on that right side of the abdomen. She is no longer having hematuria. Afebrile. WBC is 4.95 Hgb 9.1 platelets 364 magnesium 1.7 potassium 3. PHYSICAL EXAM: VITAL SIGNS: Reviewed. GENERAL: Well-developed in no acute distress. ABDOMEN: Soft. Nondistended. ASSESSMENT: 1. Possible proctitis on computed tomography scan status post colonoscopy with evidence of sigmoid colon polyp and diverticulosis 2. UTI 3. Hypokalemia and hypomagnesemia improved PLAN: -Continue regular diet -Can be discharged from surgical standpoint when medically cleared -Okay to resume Eliquis tomorrow from surgical standpoint Physician Stator Plate Washer note has been reviewed by physician. Signing provider agrees with the documented findings, assessment, and plan of care. Objective - Vital Signs Vital signs: Vital Signs Temp 97.5 F L 04/12/23 08:00 Pulse 91 04/12/23 08:00 Resp 17 04/12/23 08:00 BP 174/88 04/12/23 08:00 Pulse Ox 96 04/12/23 08:00 FiO2 Intake & Output 04/11/23 04/12/23 04/12/23 18:59 06:59 18:59 Intake Total 100 Balance 100 Weight 72 kg Intake: IV 100 Other: Voiding Method Bedside Commode Bedside Commode # Voids 1 5 # Bowel Movements 1 1 - Labs CBC & Chem 7: 04/12/23 07:22 04/12/23 07:22 Labs: Abnormal Lab Results - Last 24 Hours (Table) 04/11/23 04/12/23 04/12/23 Range/Units 21:01 05:52 07:22 RBC (4.10-5.20) X 10*6/uL Hgb (12.0-15.0) g/dL Hct (37.2-46.3) % RDW (11.5-14.5) % MPV (9.5-12.2) FL Glucose 111 H (74-99) mg/dL POC Glucose (mg/dL) 137 H 112 H (70-110) mg/dL 04/12/23 04/12/23 Range/Units 07:22 11:43 RBC 3.11 L (4.10-5.20) X 10*6/uL Hgb 9.1 L (12.0-15.0) g/dL Hct 28.4 L (37.2-46.3) % RDW 17.9 H (11.5-14.5) % MPV 8.6 L (9.5-12.2) FL Glucose (74-99) mg/dL POC Glucose (mg/dL) 148 H (70-110) mg/dL Microbiology - Last 24 Hours (Table) 04/08/23 13:25 Blood Culture - Preliminary Blood
--- NOTE | 2023-04-12 15:13 | P.PN ---
Subjective Progress Note Date: 04/12/23 Patient is a 73-year-old female with known history of hypertension, diabetes type 2, atrial fibrillation on anticoagulation with Eliquis, history of CVA with minimal left-sided weakness and spinal stenosis, anxiety/depression, prior history of smoking, chronic pain patient presented to ER with complaints of abdominal pain mainly in the right lower quadrant. Patient has been having pain for the past 3 days. she was also having hematuria and was seen by her physician and was started antibiotics in the form of Levaquin. Patient presented to ER with out significant improvement. Patient otherwise denies any complaints of fever. No chills. Does have nausea and also some vomiting. No complaints of worsening back pain flank pain. No complaints of diarrhea. Patient does have history of constipation. On admission CT of the abdomen pelvis showed urinary bladder is minimally distended and bladder wall thickening and surrounding fat stranding correlate for cystitis. Rectal wall thickening versus possible distention. Mild perirectal and sacral fat stranding may be related to generalized pelvic inflammatory changes or proctitis. Laboratory data showed WBC 9.7 hemoglobin 10.8 and platelets 248 Sodium 139 potassium 3.7 chloride 103 bicarb is 23 BUN 20 and creatinine 1.23. Blood sugar 140 Liver edge is not elevated. Total bilirubin 1.2 amylase 47 lipase 50 and urinalysis showed turbid with 2+ protein, 4+ glucose, large blood, large leukocyte esterase and elevated RBCs and WBCs. [id number] Patient is seen in follow-up in the ICU as an overflow from 3 S. being started on amiodarone drip and patient is continued on heparin with cardiology along with general surgery and infectious disease following. Urine cultures thus far showing presumptive staph aureus and patient is maintained on ceftriaxone along with Flagyl. Patient did have an elevated troponin and was transferred over h ere for further monitoring and adjustments to medications being made and heparin is being discontinued per cardiology. Patient continues on antibiotics and being adjusted to vancomycin per infectious disease and we'll monitor and await for finalized cultures. Patient reports to feeling improved from yesterday although continues with generalized weakness and feeling unwell. Gen. surgery for evaluation of abdominal pain. Patient is currently afebrile with no reports of chest pain or shortness of breath. Patient currently sitting up eating in bed at this time. Awaiting transfer to [facility] of the bed is available 04/07/2023 Patient is seen and evaluated in follow-up this morning with multiple medical consultations following including infectious disease, general surgery, and cardiology. Patient noted to have gross hematuria in the airway device and had been recently resumed on eliquis and will hold this for now and continue with subcutaneous heparin and will also consult urology and appreciate input and recommendations. Patient continues with diffuse abdominal pain and reports pain and burning with urination and was evaluated by general surgery recommending colonoscopy on Tuesday. Preliminary cultures finalized showing MRSA and patient is maintained on ceftriaxone along with Flagyl. Patient did receive a dose of vancomycin. Patient is currently afebrile with no reported chest pain or shortness of breath. Blood pressures are soft and medications are being adjusted per cardiology. 04/08/2023 Patient is seen in follow-up this morning with multiple medical consultations following. Patient continues on antibiotics with infectious disease following a significant UTI and cultures are finalized showing MRSA. CT suggestive of colitis and patient continues to have severe abdominal pain and follow-up x-ray of the abdomen consistent with gastroenteritis. Patient continues to report multiple episodes of loose stools and per nursing staff patient was having somewhat formed fecal matter is well. Will obtain C. diff to rule out as patient has been continued on antibiotics. Patient denies nausea or vomiting and tolerating diet and would recommend small frequent meals. Patient with significant weakness will be having physical therapy reevaluation. Patient is a long-term resident at [facility] and will be returning there on discharge. Patient continues with hematuria although slightly improved and hemoglobin remained stable. Urology has evaluated the patient with no plans for surgical intervention at this time recommend monitoring possible outpatient follow-up. 04/09/2023 Patient is evaluated today standing up at the bedside continues to have loose stools. Continues on IV antibiotics and general surgery following closely plans to undergo colonoscopy on Tuesday. 04/10/2023 Patient is evaluated today sitting up at the bedside continues with multiple e pisodes of loose stools. She is being prepped for colonoscopy tomorrow. On IV vancomycin and also on IV ceftriaxone and oral flagyl. Remains on room air. Has no acute complaints. She has been able to transition herself to the [facility] [place] back. Hemoglobin remains stable. 04/11/2023 Patient is seen in follow-up today underwent GoLYTELY prep and scheduled for colonoscopy today currently nothing by mouth. Patient is maintained on antibiotics in the form of vancomycin along with ceftriaxone and Flagyl with infectious disease following. Patient reports her abdominal pain is slightly improved and currently awaiting colonoscopy report. Will awaiting follow-up with general surgery. Anticoagulation remains on hold and will follow-up on when to resume. Patient is currently afebrile with no reports of chest pain or shortness of breath. Diet to be resumed after colonoscopy. Plan is for returning to [facility] where she is a long-term resident and will discuss further with consultations about discharge planning over the next few days. 04/12/2023 Patient is seen and evaluated in follow-up today and maintained on antibiotics for UTI MRSA with infectious disease following closely. Patient was noted to have significant hematuria which has resolved and was evaluated by urology with no plans for intervention. Patient had continued abdominal pain underwent endoscopy with general surgery showing diverticulosis and a polyp that was biopsied otherwise no active bleeding noted and diet was resumed. Patient has been cleared by consultations for discharge back to [facility]. Multiple drug interactions with antibiotics and patient will receive a PICC line today to continue on vancomycin at [facility] for 1 week per ID recommendations. There is no staff in the [employer] and vascular surgery was informed there is a PICC line order. PICC line either sometime later today or in the a.m. Patient is currently afebrile with no reported chest pain or shortness of breath. Review of systems: Constitutional: No reports of fatigue, fever, or chills Cardiovascular: No reports of chest pain or palpitations Respiratory: No reports of shortness of breath or cough GI: No reports of nausea, vomiting, reports multiple episodes of diarrhea, reports improvement in abdominal pain : no reports of dysuria and pain with urination Neurovascular: reports of generalized weakness All medications have been reviewed PHYSICAL EXAMINATION: Patient is sitting up in the bed. Patient is sitting up at the side of the bed. awake alert and oriented.. Obese HEENT: Normocephalic. Neck is supple. Pupils reactive. Nostrils clear. Oral cavity is moist. Neck reveals no JVD, carotid bruits, or thyromegaly. CHEST EXAMINATION: Trachea is central. Symmetrical expansion. Lung nielson clear to auscultation and percussion. CARDIAC: Normal S1, S2 with no gallops. No murmurs ABDOMEN: Soft. Bowel sounds present. Patient does have generalized tenderness on palpation. No Guarding. No rigidity.. No abdominal bruits. Extremities: reveal trace pedal edema. No clubbing or cyanosis Neurologically awake, alert, oriented x3. Able to move all extremities. Minimal left-sided weakness. Skin: No rash or skin lesions. Psychiatric: Cooperative. Non-suicidal Musculoskeletal: No joint swelling or deformity. Assessment: Acute urinary tract infection with dysuria and hematuria. Cultures finalized showing MRSA Possible Pelvic inflammatory disease, Ruled out. Most likely abdominal pain secondary to proctitis. Possible proctitis with ongoing abdominal pain and tenderness, Status post EGD showing diverticulosis Diarrhea, ruled out C. diff Acute kidney injury likely prerenal. Baseline creatinine 0.8 Atrial fibrillation on anticoagulation with Eliquis although having increased hematuria and will hold anticoagulation for now, continue subcutaneous heparin per cardiology Hypertension Diabetes type 2 insulin-dependent History of CVA with right-sided mild residual weakness Rheumatoid arthritis patient is on methotrexate and Imuran Anxiety/depression Prior history of smoking History of CBD Gummies use for pain Chronic pain Constipation history GI bleed prophylaxis with PPI DVT prophylaxis, subcutaneous heparin Obesity with a BMI of 32.1 Full code Plan: Patient will be continued on gentle IV hydration. Continue with antibiotics with infectious disease following. Cultures finalized showing MRSA and patient is continued on ceftriaxone and Flagyl. Patient on vancomycin as well. Infectious disease making adjustments to medications. Patient will require a PICC line to continue with vancomycin for 1 week on discharge. PICC line ordered and pending as vascular surgery is placing these this week General surgery evaluated the patient an underwent colonoscopy showing diverticulosis and a polyp that was biopsied. Patient to follow-up with general surgery outpatient for results Hemoglobin is stable today Along with electrolytes and will follow-up on repeat labs Continue telemetry monitoring Continue monitoring Accu-Cheks before meals and at bedtime and will continue with insulin/sliding scale regimen Patient will be returning to [facility] on discharge. Possible discharge in the next 24-48 hours After a PICC line is received The impression and plan of care has been dictated by Any Peguero, Nurse Practitioner as directed. Dr. Dmitry MD I have performed a history and examination and MDM of this patient, discussed the same with the dictator, and agree with the dictator's assessment and plan as written ,documented as a scribe. Based on total visit time, I have performed more than 50% of the visit. Objective - Vital Signs Vital signs: Vital Signs Temp 98.0 F 04/12/23 14:00 Pulse 100 04/12/23 14:00 Resp 18 04/12/23 14:00 BP 142/85 04/12/23 14:00 Pulse Ox 94 L 04/12/23 14:00 FiO2 Intake & Output 04/11/23 04/12/23 04/12/23 18:59 06:59 18:59 Intake Total 100 Balance 100 Weight 72 kg Intake: IV 100 Other: Voiding Method Bedside Commode Bedside Commode Bedside Commode # Voids 1 5 1 # Bowel Movements 1 1 1 - Labs CBC & Chem 7: 04/12/23 07:22 04/12/23 07:22 Labs: Abnormal Lab Results - Last 24 Hours (Table) 04/11/23 04/12/23 04/12/23 Range/Units 21:01 05:52 07:22 RBC (4.10-5.20) X 10*6/uL Hgb (12.0-15.0) g/dL Hct (37.2-46.3) % RDW (11.5-14.5) % MPV (9.5-12.2) FL Glucose 111 H (74-99) mg/dL POC Glucose (mg/dL) 137 H 112 H (70-110) mg/dL 04/12/23 04/12/23 Range/Units 07:22 11:43 RBC 3.11 L (4.10-5.20) X 10*6/uL Hgb 9.1 L (12.0-15.0) g/dL Hct 28.4 L (37.2-46.3) % RDW 17.9 H (11.5-14.5) % MPV 8.6 L (9.5-12.2) FL Glucose (74-99) mg/dL POC Glucose (mg/dL) 148 H (70-110) mg/dL Microbiology - Last 24 Hours (Table) 04/08/23 13:25 Blood Culture - Preliminary Blood
[2023-04-12 15:54] VITALS: BMI 29.9
[2023-04-12] MEDS ORDERED: LIDOCAINE 2% (PF) 20 MG/ML 5 ML VIAL SQ ONE (16:16)
--- NOTE | 2023-04-12 16:25 | P.PCN ---
Date of Procedure: 04/12/23 Preoperative Diagnosis: UTI, Proctitis, need for IV Abx Postoperative Diagnosis: same Procedure(s) Performed: Left upper extremity basilic vein PICC line placement under ultrasound and fluoroscopic guidance Anesthesia: local Surgeon: Mathew Joyce Estimated Blood Loss (ml): 2 Pathology: none sent Condition: stable Disposition: floor Indications for Procedure: 73-year-old female currently being treated for UTI and proctitis with MRSA infection in need of IV antibiotics for 2 weeks presents for placement of the PICC line. Description of Procedure: After written and informed consent was obtained the patient and all risks, benefits and competitions were described the patient was brought to the [facility] and laid in a supine position with his left arm outstretched on an armboard. The area of the left arm was prepped and draped in usual sterile fashion. Timeout was performed in normal fashion. Utilizing ultrasound the basilic vein was visualized and shown to be compressible without any visible thrombus. Under ultrasound guidance the basilic vein was then cannulated with a micropuncture needle and wire was placed under direct visualization of fluoroscopy. Introducer sheath was then placed. The catheter was measured and cut to the appropriate length which was 45 cm. The catheter was then guided through the breakaway sheath and the sheath was removed with good positioning was visualized under fluoroscopy. The catheter was pulled and flushed easily. It was then secured in place in normal fashion. Patient tolerated the procedure well was sent back to his room for recovery.
--- NOTE | 2023-04-12 18:20 | P.PN ---
Subjective Progress Note Date: 04/12/23 Principal diagnosis: Reason for follow-up is urine tract infection and a question of proctitis. Patient is a 73-year-old -Ben[place] female with a past medical history significant for diabetes mellitus hypertension atrial fibrillation CVA spinal stenosis history of smoking patient was brought into the hospital for evaluation of right-sided abdominal pain, also have urinary symptoms did have a fever CT abdominal pelvis with bladder wall thickening and surrounding fat stranding and there was question of possible mild perirectal and presacral fat stranding. Patient did have colonoscopy completed on 04/21/2023 with evidence of any rectal inflammation On today's evaluation that is 04/12/2023 the patient continues to be afebrile, the patient is breathing comfortably on room air, the patient denies chest pain, shortness of breath or cough, the patient denies nausea vomiting abdominal pain has improved no diarrhea and urinary symptoms has improved Patient white count is 4.95, creatinine 0.77 blood culture has been negative urine with MRSA Objective - Vital Signs Vital signs: Vital Signs Temp 97.5 F L 04/12/23 08:00 Pulse 91 04/12/23 08:00 Resp 17 04/12/23 08:00 BP 174/88 04/12/23 08:00 Pulse Ox 96 04/12/23 08:00 FiO2 Intake & Output 04/11/23 04/12/23 04/12/23 18:59 06:59 18:59 Intake Total 100 Balance 100 Weight 72 kg Intake: IV 100 Other: Voiding Method Bedside Commode Bedside Commode # Voids 1 5 # Bowel Movements 1 1 - Exam GENERAL DESCRIPTION: An elderly female lying in bed in no distress RESPIRATORY SYSTEM: Unlabored breathing , decreased breath sounds at bases HEART: S1 S2 regular rate and rhythm , ABDOMEN: Soft , no tenderness EXTREMITIES: No edema feet - Labs CBC & Chem 7: 04/12/23 07:22 04/12/23 07:22 Labs: Abnormal Lab Results - Last 24 Hours (Table) 04/11/23 04/11/23 04/12/23 Range/Units 11:36 21:01 05:52 RBC (4.10-5.20) X 10*6/uL Hgb (12.0-15.0) g/dL Hct (37.2-46.3) % RDW (11.5-14.5) % MPV (9.5-12.2) FL Glucose (74-99) mg/dL POC Glucose (mg/dL) 114 H 137 H 112 H (70-110) mg/dL 04/12/23 04/12/23 Range/Units 07:22 07:22 RBC 3.11 L (4.10-5.20) X 10*6/uL Hgb 9.1 L (12.0-15.0) g/dL Hct 28.4 L (37.2-46.3) % RDW 17.9 H (11.5-14.5) % MPV 8.6 L (9.5-12.2) FL Glucose 111 H (74-99) mg/dL POC Glucose (mg/dL) (70-110) mg/dL Microbiology - Last 24 Hours (Table) 04/08/23 13:25 Blood Culture - Preliminary Blood Assessment and Plan (1) MRSA (methicillin resistant staph aureus) culture positive Current Visit: Yes Status: Acute Code(s): Z22.322 - CARRIER OR SUSPECTED CARRIER OF METHICILLIN RESIS STAPH SNOMED Code(s): 198964883 (2) UTI (urinary tract infection) Current Visit: Yes Status: Acute Code(s): N39.0 - URINARY TRACT INFECTION, SITE NOT SPECIFIED SNOMED Code(s): 45993885 (3) Proctitis Current Visit: Yes Status: Acute Code(s): K62.89 - OTHER SPECIFIED DISEASES OF ANUS AND RECTUM SNOMED Code(s): 3184332 Plan: 1patient presented hospital with abdominal pain hematuria burning of urination this patient who did have a significantly positive UA with evidence of cystitis on the CT did not mention any hydronephrosis or renal stone. 2blood cultures currently pending urine culture has been finalized as MRSA 3patient to continue the vancomycin for her MRSA UTI.the patient MRSA is resistant to Bactrim DS and the patient is on Lexapro so we cannot use Zyvox we will get a PICC line and recommend 7 to 10-day course of vancomycin on discharge this was discussed with the [employer]CH[employer]IC for admitting team 4patient did have a normal colonoscopy with no evidence of any rectal inflammation we will discontinue Rocephin and Flagyl Dictation was produced using [employer] dictation software. please excuse any grammatical, word or spelling errors. Time with Patient: Less than 30
[2023-04-12] MEDS: SENNOSIDES 8.6 MG TAB PO SCH (20:26)
[2023-04-12] MEDS: traZODone HCL 50 MG TAB PO SCH (20:26)
[2023-04-12 20:51] LABS: Glucose,Whole Blood 103 mg/dL (70-110)
[2023-04-13] MEDS: HYDROcodone/APAP 10-325MG 1 EACH TAB PO PRN ×2 (00:20→10:39)
[2023-04-13] MEDS ORDERED: VANCOMYCIN 1,250 MG in SODIUM CHLORIDE 0.9% 250 ML IVPB SCH (02:00)
[2023-04-13 06:05] LABS: Glucose,Whole Blood 99 mg/dL (70-110)
[2023-04-13] MEDS: azaTHIOprine 50 MG TAB PO SCH (06:30)
[2023-04-13] MEDS: HYDROmorphone 1 MG/ML 1 ML SYRINGE IVP PRN (06:35)
[2023-04-13 07:10] LABS: African American GFR (CKD) >90 (>60 ml/min/1.73 sqM); Non-African American GFR(CKD) 90 (>60 ml/min/1.73 sqM)
[2023-04-13] MEDS: OXYCODONE MYRISTATE 9 MG PO SCH (08:13)
[2023-04-13] MEDS: LACTULOSE 20 GM/30 ML CUP PO SCH (08:34)
[2023-04-13] MEDS: DOCUSATE 100 MG CAP PO SCH (08:34)
[2023-04-13] MEDS: SPIRONOLACTONE 25 MG TAB PO SCH (08:34)
[2023-04-13] MEDS: METOPROLOL TARTRATE 50 MG TAB PO SCH (08:34)
[2023-04-13] MEDS: ISOSORBIDE MONONITRATE ER 30 MG TAB.ER.24H PO SCH (08:34)
[2023-04-13] MEDS: PANTOPRAZOLE 40 MG/10 ML VIAL IVP SCH (08:34)
[2023-04-13] MEDS: CYANOCOBALAMIN 500 MCG TAB PO SCH (08:34)
[2023-04-13] MEDS: FUROSEMIDE 20 MG TAB PO SCH (08:35)
[2023-04-13] MEDS: ESCITALOPRAM 10 MG TAB PO SCH (08:35)
[2023-04-13] MEDS: HEPARIN SODIUM,PORCINE 5,000 UNIT/ML 1 ML VIAL SQ SCH (08:35)
[2023-04-13] MEDS: LACTATED RINGERS 1,000 ML IV SCH (08:36)
[2023-04-13 11:14] LABS: Glucose,Whole Blood 197 mg/dL (70-110)
--- NOTE | 2023-04-13 11:18 | P.PN ---
Subjective Progress Note Date: 04/13/23 CHIEF COMPLAINT: abdominal pain HISTORY OF PRESENT ILLNESS: Patient status post colonoscopy with results showing sigmoid colon polyp and diverticulosis. Patient is tolerating regular diet. Patient reports that she is feeling better. She had her PICC line placed yesterday for antibiotics for UTI. Patient is scheduled for discharge today. PHYSICAL EXAM: VITAL SIGNS: Reviewed. GENERAL: Well-developed in no acute distress. ABDOMEN: Soft. Nondistended. ASSESSMENT: 1. Possible proctitis on computed tomography scan status post colonoscopy with evidence of sigmoid colon polyp and diverticulosis 2. UTI 3. Hypokalemia and hypomagnesemia improved PLAN: -Continue regular diet -Can be discharged from surgical standpoint when medically cleared -Okay to resume Lov[employer] note has been reviewed by physician. Signing provider agrees with the documented findings, assessment, and plan of care. Objective - Vital Signs Vital signs: Vital Signs Temp 97.6 F 04/13/23 07:48 Pulse 85 04/13/23 07:48 Resp 19 04/13/23 07:48 BP 148/90 04/13/23 07:48 Pulse Ox 95 04/13/23 07:48 FiO2 Intake & Output 04/12/23 04/13/23 04/13/23 18:59 06:59 18:59 Weight 72 kg 74 kg Other: Voiding Method Bedside Commode Bedside Commode Bedside Commode # Voids 3 3 # Bowel Movements 1 - Labs CBC & Chem 7: 04/12/23 07:22 04/13/23 05:52 Labs: Abnormal Lab Results - Last 24 Hours (Table) 04/12/23 04/13/23 Range/Units 11:43 11:13 POC Glucose (mg/dL) 148 H 197 H (70-110) mg/dL
--- NOTE | 2023-04-13 13:07 | P.DS ---
Providers Date of admission: 04/05/23 01:43 Expected date of discharge: 04/13/23 Attending physician: Vinod Andres Consults: 04/05/23 15:48 Consult Physician Routine Consulting Provider: Kina Escobar Consult Reason/Comments: Proctitis, abdominal pain Do you want consulting provider notified?: Yes 04/05/23 23:43 Consult Physician Urgent Consulting Provider: Sanam Reynolds Consult Reason/Comments: elevated trop Do you want consulting provider notified?: Yes, Notify in am 04/07/23 09:17 Consult Physician Urgent Consulting Provider: Brad Quigley Consult Reason/Comments: hematuria, uti Do you want consulting provider notified?: Yes 04/11/23 12:31 Consult Physician Routine Consulting Provider: Rai Burrell Consult Reason/Comments: proctitis Do you want consulting provider notified?: Already Contacted Primary care physician: Kye Mitchell [facility] Course: Final diagnosis Acute urinary tract infection with dysuria and hematuria. Cultures finalized showing MRSA Possible Pelvic inflammatory disease, Ruled out. Most likely abdominal pain secondary to proctitis. Possible proctitis with ongoing abdominal pain and tenderness, Status post EGD showing diverticulosis , improved Diarrhea, ruled out C. diff Acute kidney injury likely prerenal. 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 Patient will follow-up with Dr. Mitchell in the outpatient setting upon discharge. Patient is to continue with IV antibiotics in the form of Vanco and has received a PICC line for the next 10 days and close outpatient follow-up with urology along with infectious disease as scheduled. Patient to follow-up with cardiology outpatient as well. Total time taken is greater than 35 minutes. Hospital course This is a 73-year-old female who was recently admitted with severe urinary tract infection with hematuria and cultures finalized showing MRSA. Patient being followed by multiple medical consultations briefly was in the ICU for significant hematuria in A. fib with RVR with uncontrolled rates. Patient continued to have abdominal pain underwent colonoscopy showing diverticulosis and a polyp that was biopsied and patient follow-up with general surgery outpatient for results. Patient was evaluated by urology recommended continued antibiotic therapy and okay to resume anticoagulation. Patient will be resumed on eliquis today per surgery and recommend repeat CBC, CMP, CK, sed rate, Vanco troughs in the next few days. Patient will continue on vancomycin IV antibiotics for a 10 day course per ID recommendations for MRSA in the urine. Patient has been cleared by consultations for discharge to [facility] today. Please refer to consultation notes for further HPI. Currently no reports of chest pain, shortness of breath, or palpitations. Patient is afebrile. No reports of nausea or vomiting and patient is tolerating diet. Patient will be going to [facility] today. Guarded prognosis and high risk for readmission given patient's significant comorbidities Physical exam: Gen: This is a 73-year-old female who is awake, alert and oriented 3, well- developed, well-nourished, obese HEENT: Head is atraumatic, normocephalic. Pupils equal, round. Sclerae is anicte braxton. NECK: Supple. No JVD. No lymphadenopathy. No thyromegaly. LUNGS: Clear to auscultation. No wheezes or rhonchi. No intercostal retractions. HEART: Regular rate and rhythm. No murmur. ABDOMEN: Soft. Obese. Bowel sounds are present. No masses. No tenderness. EXTREMITIES: No pedal edema. No calf tenderness. NEUROLOGICAL: Patient is awake, alert and oriented x3. Cranial nerves 2 through 12 are grossly intact. Diffusely weak Please refer to medication reconciliation sheet for a list of medications. The impression and plan of care has been dictated by Any Peguero, Nurse Practitioner as directed. Dr. Dmitry MD I have performed a history and examination and MDM of this patient, discussed the same with the dictator, and agree with the dictator's assessment and plan as written ,documented as a scribe. Based on total visit time, I have performed more than 50% of the visit. Patient Condition at Discharge: Stable Plan - Discharge Summary Discharge Rx Participant: No New Discharge Prescriptions: New Vancomycin 1,250 mg IVPB Q16H 10 Days #10 each Metoprolol Tartrate [Lopressor] 100 mg PO BID@0800,1700 tab Acetaminophen Tab [Tylenol] 650 mg PO Q6HR PRN tab PRN Reason: Mild Pain Or Fever > 100.5 Continue Folic Acid 1 mg PO DAILY@1200 metHOTREXate sodium [Methotrexate] 20 mg PO MO Omeprazole 40 mg PO DAILY 30 Days #30 cap Nitroglycerin Sl Tabs [Nitrostat] 0.4 mg PO Q5M PRN PRN Reason: Chest Pain Apixaban [Eliquis] 5 mg PO BID@0800,1700 traZODone HCL [Desyrel] 50 mg PO HS Docusate [Colace] 100 mg PO BID@0800,1700 Furosemide [Lasix] 20 mg PO DAILY Isosorbide Mononitrate ER [Imdur] 30 mg PO DAILY Ferrous Sulfate [Iron (65 MG Elemental)] 325 mg PO DAILY Cyanocobalamin [Vitamin B-12] 500 mcg PO DAILY Nicotine Polacrilex [Nicotine Gum] 4 mg BC BID PRN PRN Reason: smoking cessation Oxycodone Myristate [Xtampza ER] 9 mg PO Q12H Sennosides [Senokot] 17.2 mg PO HS bisacodyL [Dulcolax] 10 mg RECTAL DAILY PRN PRN Reason: Constipation Na Phos,M-B/Na Phos,Di-Ba [Fleet Adult] 133 ml RECTAL DAILY PRN PRN Reason: Constipation azaTHIOprine [Imuran] 50 mg PO TID@0600,1400,2200 INSULIN LISPRO (HumaLOG) [humaLOG] See Protocol SQ ACHS Lactulose 10 gm PO BID@0800,1700 Spironolactone 25 mg PO DAILY Escitalopram Oxalate [Lexapro] 10 mg PO DAILY Empagliflozin [Jardiance] 10 mg PO DAILY@0600 Cholecalciferol [Vitamin D3 (25 Mcg = 1000 Iu)] 25 mcg PO DAILY polyethylene glycoL 3350 [Miralax] 17 gm PO DAILY PRN PRN Reason: Constipation Mag Hydrox/Al Hydrox/Simeth [Maalox] 30 ml PO Q6H PRN PRN Reason: anti gas HYDROcodone/APAP 10-325MG [[place] 10-325] 1 tab PO Q6HR PRN #6 tab PRN Reason: Pain Discontinued hydrALAZINE HCL [Apresoline] 50 mg PO BID Metoprolol Tartrate [Lopressor] 50 mg PO BID@0800,1700 Levofloxacin [Levaquin] 500 mg PO DAILY Discharge Medication List Folic Acid 1 mg PO DAILY@1200 09/07/22 [History] metHOTREXate sodium [Methotrexate] 20 mg PO MO 10/16/22 [History] Omeprazole 40 mg PO DAILY 30 Days #30 cap 12/10/22 [Rx] Apixaban [Eliquis] 5 mg PO BID@0800,1700 02/14/23 [History] Cholecalciferol [Vitamin D3 (25 Mcg = 1000 Iu)] 25 mcg PO DAILY 02/14/23 [History] Docusate [Colace] 100 mg PO BID@0800,1700 02/14/23 [History] Empagliflozin [Jardiance] 10 mg PO DAILY@0600 02/14/23 [History] Escitalopram Oxalate [Lexapro] 10 mg PO DAILY 02/14/23 [History] Ferrous Sulfate [Iron (65 MG Elemental)] 325 mg PO DAILY 02/14/23 [History] Furosemide [Lasix] 20 mg PO DAILY 02/14/23 [History] INSULIN LISPRO (HumaLOG) [humaLOG] See Protocol SQ ACHS 02/14/23 [History] Isosorbide Mononitrate ER [Imdur] 30 mg PO DAILY 02/14/23 [History] Lactulose 10 gm PO BID@0800,1700 02/14/23 [History] Na Phos,M-B/Na Phos,Di-Ba [Fleet Adult] 133 ml RECTAL DAILY PRN 02/14/23 [History] Nitroglycerin Sl Tabs [Nitrostat] 0.4 mg PO Q5M PRN 02/14/23 [History] Spironolactone 25 mg PO DAILY 02/14/23 [History] azaTHIOprine [Imuran] 50 mg PO TID@0600,1400,2200 02/14/23 [History] bisacodyL [Dulcolax] 10 mg RECTAL DAILY PRN 02/14/23 [History] polyethylene glycoL 3350 [Miralax] 17 gm PO DAILY PRN 02/14/23 [History] traZODone HCL [Desyrel] 50 mg PO HS 02/14/23 [History] Cyanocobalamin [Vitamin B-12] 500 mcg PO DAILY 04/05/23 [History] Mag Hydrox/Al Hydrox/Simeth [Maalox] 30 ml PO Q6H PRN 04/05/23 [History] Nicotine Polacrilex [Nicotine Gum] 4 mg BC BID PRN 04/05/23 [History] Oxycodone Myristate [Xtampza ER] 9 mg PO Q12H 04/05/23 [History] Sennosides [Senokot] 17.2 mg PO HS 04/05/23 [History] Acetaminophen Tab [Tylenol] 650 mg PO Q6HR PRN tab 04/13/23 [Rx] HYDROcodone/APAP 10-325MG [[place] 10-325] 1 tab PO Q6HR PRN #6 tab 04/13/23 [Rx] Metoprolol Tartrate [Lopressor] 100 mg PO BID@0800,1700 tab 04/13/23 [Rx] Vancomycin 1,250 mg IVPB Q16H 10 Days #10 each 04/13/23 [Rx] Follow up Appointment(s)/Referral(s): Eduardo Harrison MD [STAFF PHYSICIAN] - 2 Weeks Kye Mitchell DO [Primary Care Provider] - 1-2 days Kina Escobar MD [STAFF PHYSICIAN] - 1 Week Ambulatory/Diagnostic Orders: Complete Blood Count w/diff [LAB.AMB] Time Frame: 3 Days, Location: None Selected Activity/Diet/Wound Care/Special Instructions: patient is returning to [facility] activity as tolerated Follow-up with primary care provider on discharge may resume eliquis Follow-up with repeat labs of CBC, CMP, sed rate, CK and Vanco troughs Continue Vanco with pharmacy to dose for the next 10 days and patient has received a PICC line Follow-up with cardiology outpatient Discharge Disposition: TRANSFER TO SNF/ECF
[2023-04-13 15:03] VITALS: BP 136/87; PULSE 86; RESP 21; TEMP 97.9
--- NOTE | 2023-04-13 17:43 | IR ---
PICC Insertion: EXAMINATION TYPE: IR cvc insert >=5 years Intraoperative/procedural fluoroscopic services were provid ed. CLINICAL INDICATION:Female, 73 years old with history of Abx, 0.3m/0.522DAP, 4F 45cm lt basilic PICC line.; , [facility] Total fluoroscopy time is 5.48 min. DAP: 0.522 Gycm2 Please see the operative/procedural note for further details.
[2023-04-14] MEDS ORDERED: VANCOMYCIN TROUGH DUE 1 EACH MISC MISCELLANE ONE (09:00)
== END 2023-04-13 16:30 | DRG 394 ==
LOC: EC 22:01 → OBSVTOIN 04-05 01:43 → 6NMEDSUR 04-05 01:43 → 2SICU 04-06 03:04 → 4SSUR 04-06 17:50
PROVIDERS: ADMIT Hospitalist; ATTEND Hospitalist
PROC: 0DBN8ZX Excision of Sigmoid Colon, Via Natural or Artificial Opening Endoscopic, Diagnostic (ICD-10-PCS; principal; 2023-04-05)
PROC: 02HV33Z Insertion of Infusion Device into Superior Vena Cava, Percutaneous Approach (ICD-10-PCS; 2023-04-12)
PROC: B548ZZA Ultrasonography of Superior Vena Cava, Guidance (ICD-10-PCS; 2023-04-12)
PROC: B5181ZA Fluoroscopy of Superior Vena Cava using Low Osmolar Contrast, Guidance (ICD-10-PCS; 2023-04-12)
DX: K62.89 Other specified diseases of anus and rectum (principal); I48.19 Other persistent atrial fibrillation; N17.9 Acute kidney failure, unspecified; I69.354 Hemiplegia and hemiparesis following cerebral infarction affecting left non-dominant side; M06.9 Rheumatoid arthritis, unspecified; N30.91 Cystitis, unspecified with hematuria; I08.1 Rheumatic disorders of both mitral and tricuspid valves; I11.0 Hypertensive heart disease with heart failure; Z68.30 Body mass index [BMI] 30.0-30.9, adult; E66.9 Obesity, unspecified; F32.A Depression, unspecified; G89.29 Other chronic pain; K57.30 Diverticulosis of large intestine without perforation or abscess without bleeding; K59.00 Constipation, unspecified; B95.62 Methicillin resistant Staphylococcus aureus infection as the cause of diseases classified elsewhere; E87.6 Hypokalemia; E83.42 Hypomagnesemia; K63.5 Polyp of colon; F41.9 Anxiety disorder, unspecified; R31.9 Hematuria, unspecified; Z79.01 Long term (current) use of anticoagulants; Z79.4 Long term (current) use of insulin; Z68.32 Body mass index [BMI] 32.0-32.9, adult; Z90.49 Acquired absence of other specified parts of digestive tract; Z87.19 Personal history of other diseases of the digestive system
CPT/HCPCS: 36415; 36573; 45380; 71045; 74018; 74176; 80048; 80053; 80202; 81001; 82150; 82565; 83605; 83690; 83735; 84443; 84484; 85025; 85379; 85610; 85730; 86140; 87040; 87077; 87086; 87186; 87324; 88305; 93306; 96361; 96365; 96375; 96376; 99285

== ENCOUNTER 2023-04-14 19:26 | Inpatient (IN) | payer MEDICARE, OTHER ==
[2023-04-14 20:17] LABS: Anisocytosis Slight; Basophils % (A) 1 %; Eosinophils # (A) 0.2 k/uL (0-0.7); Eosinophils % (A) 3 %; HCT 27.5 % (34.0-46.0); HGB 8.9 gm/dL (11.4-16.0); Hypochromasia Slight; Lymphocytes # (A) 1.4 k/uL (1.0-4.8); Lymphocytes % (A) 21 %; MCH 30.4 pg (25.0-35.0); MCHC 32.4 g/dL (31.0-37.0); MCV 93.9 fL (80.0-100.0); Macrocytosis Slight; Mean Platelet Volume 7.2; Monocytes # (A) 0.3 k/uL (0-1.0); Monocytes % (A) 4 %; Neutrophils # (A) 4.7 k/uL (1.3-7.7); Neutrophils % (A) 70 %; Platelet Count 429 k/uL (150-450); RBC 2.93 m/uL (3.80-5.40); RDW 18.5 % (11.5-15.5); WBC 6.7 k/uL (3.8-10.6)
[2023-04-14 20:23] LABS: ALT 11 U/L (4-34); AST 24 U/L (14-36); African American GFR (CKD) >90 (>60 ml/min/1.73 sqM); Albumin 3.1 g/dL (3.5-5.0); Alkaline Phosphatase 99 U/L (38-126); Anion Gap 7 mmol/L; Blood Urea Nitrogen 6 mg/dL (7-17); Calcium 9.6 mg/dL (8.4-10.2); Carbon Dioxide 28 mmol/L (22-30); Chloride 108 mmol/L (98-107); Glucose 105 mg/dL (74-99); INR 1.1 (<1.2); Magnesium 1.6 mg/dL (1.6-2.3); Non-African American GFR(CKD) 88 (>60 ml/min/1.73 sqM); Partial Thromboplastin Time 29.4 sec (22.0-30.0); Potassium 3.3 mmol/L (3.5-5.1); Prothrombin Time 12.3 sec (10.0-12.5); Sodium 143 mmol/L (137-145); Total Bilirubin 0.5 mg/dL (0.2-1.3); Total Protein 5.6 g/dL (6.3-8.2)
--- NOTE | 2023-04-14 20:25 | ED ---
Chest Pain HPI - General Source: EMS Mode of arrival: EMS Limitations: no limitations <Raymond Blanchard - Last Filed: 04/14/23 20:25> - History of Present Illness -: hour(s) Onset: during rest Pain Location: left chest Quality: other Improves With: nothing Worsens With: nothing Anginal Symptoms: dyspnea Treatments Prior to Arrival: none <Mathew Stout - Last Filed: 04/26/23 06:46> - General Chief Complaint: Chest Pain Stated Complaint: Chest pain Time Seen by Provider: 04/14/23 20:24 - History of Present Illness Initial Comments: 73-year-old female with a past medical history significant for A. fib presented to the ED with a chief complaint of chest pain. Patient states that she was at physical therapy today when she started to feel pain on the right side of her chest. Pain does not radiate. Patient notes associated shortness of breath and palpitations with this as well. (Raymond Blanchard) This patient is 73-year-old woman here to have evaluation of upper chest pain. The pain had been noticed after doing some physical therapy. The patient states that this had come on while she was at [facility] in the care home staff felt she should be seen here. The patient attributes this to her atrial fibrillation and states that it feels like it's a pounding. She feels it all across the upper chest, contrary to the note above. Patient states that it was really the pain that was bothering her from [place] pounding and the accompanying dyspnea. She states that she is doing a little better here. (Mathew Stout) - Related Data Home Medications Medication Instructions Recorded Confirmed Folic Acid 1 mg PO DAILY@1200 09/07/22 04/14/23 metHOTREXate sodium [Methotrexate] 20 mg PO MO 10/16/22 04/14/23 Apixaban [Eliquis] 5 mg PO BID@0800,1700 02/14/23 04/14/23 Cholecalciferol [Vitamin D3 (25 25 mcg PO DAILY@0800 02/14/23 04/14/23 Mcg = 1000 Iu)] Docusate [Colace] 100 mg PO BID@0800,1700 02/14/23 04/14/23 Empagliflozin [Jardiance] 10 mg PO DAILY@0600 02/14/23 04/14/23 Escitalopram Oxalate [Lexapro] 10 mg PO DAILY@0800 02/14/23 04/14/23 Ferrous Sulfate [Iron (65 MG 325 mg PO DAILY@0800 02/14/23 04/14/23 Elemental)] INSULIN LISPRO (HumaLOG) [humaLOG] See Protocol SQ 02/14/23 04/14/23 ACHS@07,11,1630,2130 Isosorbide Mononitrate ER [Imdur] 30 mg PO DAILY@0800 02/14/23 04/14/23 Lactulose 10 gm PO BID@0800,1700 02/14/23 04/14/23 Na Phos,M-B/Na Phos,Di-Ba [Fleet 133 ml RECTAL DAILY PRN 02/14/23 04/14/23 Adult] Nitroglycerin Sl Tabs [Nitrostat] 0.4 mg PO Q5M PRN 02/14/23 04/14/23 Spironolactone 25 mg PO DAILY@0800 02/14/23 04/14/23 azaTHIOprine [Imuran] 50 mg PO TID@0600,1400,2200 02/14/23 04/14/23 bisacodyL [Dulcolax] 10 mg RECTAL DAILY PRN 02/14/23 04/14/23 polyethylene glycoL 3350 [Miralax] 17 gm PO DAILY PRN 02/14/23 04/14/23 traZODone HCL [Desyrel] 50 mg PO HS@209902/14/23 04/14/23 Cyanocobalamin [Vitamin B-12] 500 mcg PO DAILY@0800 04/05/23 04/14/23 Mag Hydrox/Al Hydrox/Simeth 30 ml PO Q6H PRN 04/05/23 04/14/23 [Maalox] Nicotine Polacrilex [Nicotine Gum] 4 mg BC BID PRN 04/05/23 04/14/23 Sennosides [Senokot] 17.2 mg PO HS@209904/05/23 04/14/23 Magnesium Hydroxide [Milk of 7,200 mg PO DAILY PRN 04/14/23 04/14/23 Magnesia Concentrate] Metoprolol Tartrate [Lopressor] 50 mg PO BID@0800,1700 04/14/23 04/14/23 Omeprazole 40 mg PO DAILY@0800 04/14/23 04/14/23 Previous Rx's Medication Instructions Recorded Acetaminophen Tab [Tylenol] 650 mg PO Q6HR PRN tab 04/13/23 Budesonide-Formot 160-4.5 Mcg 2 puff INHALATION RT-BID each 04/20/23 [Symbicort 160-4.5 Mcg Inhaler] Furosemide [Lasix] 40 mg PO DAILY tab 04/20/23 HYDROcodone/APAP 10-325MG [[place] 1 each PO Q6HR PRN #2 tab 04/20/23 10-325] Ipratropium-Albuterol Nebulize 3 ml INHALATION RT-QID each 04/20/23 [Duoneb 0.5 mg-3 mg/3 ml Soln] Ipratropium-Albuterol Nebulize 3 ml INHALATION RT-QID PRN each 04/20/23 [Duoneb 0.5 mg-3 mg/3 ml Soln] Oxycodone Myristate [Xtampza ER] 9 mg PO BID@0800,2100 #2 cap 04/20/23 Potassium Chloride ER [K-Dur 20] 20 meq PO BID tab 04/20/23 Vancomycin 1,250 mg IVPB DAILY 5 Days #5 each 04/20/23 Allergies Allergy/AdvReac Type Severity Reaction Status Date / Time No Known Allergies Allergy Verified 04/14/23 23:08 Review of Systems ROS Other: All systems not noted in ROS Statement are negative. <Raymond Blanchard - Last Filed: 04/14/23 20:25> ROS Other: All systems not noted in ROS Statement are negative. Constitutional: Denies: fever, chills, weakness Respiratory: Reports: as per HPI, dyspnea. Denies: cough, wheezes Cardiovascular: Reports: as per HPI, chest pain, palpitations, orthopnea. Denies: edema, syncope Gastrointestinal: Denies: abdominal pain, nausea, vomiting, diarrhea Genitourinary: Denies: dysuria, hematuria Musculoskeletal: Reports: arthralgia (Chronic right knee pain). Denies: back pain Skin: Denies: rash Neurological: Denies: headache, weakness <Mathew Stout - Last Filed: 04/26/23 06:46> ROS Statement: Those systems with pertinent positive or pertinent negative responses have been documented in the HPI. EKG Findings - EKG Results: EKG: interpreted by ERMD EKG shows: atrial fibrillation (Rate 83 bpm) - Blocks, [place], Hypertrophy, ST Abn: AV and intraventricular conduction: right bundle branch block (fixed/interm ittent, complete/incomplete) (Incomplete) Repolarization changes or abnormalities: nonspecific abnormality, ST segment, and/or T wave <Mathew Stout - Last Filed: 04/26/23 06:46> Past Medical History Past Medical History: Atrial Fibrillation, Diabetes Mellitus, Hypertension Additional Past Medical History / Comment(s): 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 Spinal stenosis. Poss thyroid issue. Varicose veins,. CHF History of Any Multi-Drug Resistant Organisms: MRSA Date of last positivie culture/infection: 04/05/23 MDRO Source:: Urine Past Surgical History: Cholecystectomy, Heart Catheterization, Hernia Repair, Orthopedic Surgery Additional Past Surgical History / Comment(s): removed bone in left foot, Umbilical hernia, CARDIOVERSION, total right knee replacement Past Anesthesia/Blood Transfusion Reactions: No Reported Reaction Past Psychological History: Anxiety, Depression Smoking Status: Former smoker Past Alcohol Use History: None Reported Past Drug Use History: None Reported - Past Family History Father History Unknown: Yes Sister(s) Family Medical History: Cancer Additional Family Medical History / Comment(s): breast cancer Mother Family Medical History: Deep Vein Thrombosis (DVT) <Raymond Blanchard - Last Filed: 04/14/23 20:25> General Exam Limitations: no limitations <Raymond Blanchard - Last Filed: 04/14/23 20:25> General appearance: alert, in no apparent distress Head exam: Present: atraumatic, normocephalic Eye exam: Present: normal appearance. Absent: scleral icterus, conjunctival injection Neck exam: Present: normal inspection Respiratory exam: Present: rales (Bilateral bases). Absent: respiratory distress, wheezes, rhonchi, stridor, chest wall tenderness, accessory muscle use, decreased breath sounds Cardiovascular Exam: Present: normal rhythm, irregular rhythm, normal heart sounds. Absent: systolic murmur, diastolic murmur, rubs, gallop GI/Abdominal exam: Present: soft. Absent: distended, tenderness, guarding, rebound, rigid, mass Extremities exam: Present: normal inspection, normal capillary refill, pedal edema (Trace edema at the ankles bilaterally). Absent: calf tenderness Back exam: Present: normal inspection. Absent: vertebral tenderness Neurological exam: Present: alert Skin exam: Present: warm, dry, intact, normal color. Absent: rash <Mathew Stout - Last Filed: 04/26/23 06:46> - General Exam Comments Initial Comments: Visual Physical Exam Vital signs reviewed General: Well-appearing, nontoxic, no acute distress. Head: Normocephalic, atraumatic Eyes: PERRLA, EOMI ENT: Airway patent Chest: Nonlabored breathing Skin: No visual rash, normal skin tone Neuro: Alert and oriented 3 Musculoskeletal: No gross abnormalities (Raymond Blanchard) Course Vital Signs 04/14/23 04/14/23 04/14/23 19:50 22:07 22:09 Temperature 99.1 F Pulse Rate 89 84 Respiratory 18 16 Rate Blood Pressure 162/86 175/114 O2 Sat by Pulse 98 98 98 Oximetry 04/14/23 04/14/23 04/14/23 22:10 22:20 22:30 Temperature Pulse Rate 82 78 Respiratory 22 17 Rate Blood Pressure 175/114 O2 Sat by Pulse Oximetry 04/14/23 04/14/23 22:40 23:55 Temperature 97.7 F Pulse Rate 82 86 Respiratory 12 20 Rate Blood Pressure 179/97 O2 Sat by Pulse 96 Oximetry Chest Pain MDM <Raymond Blanchard - Last Filed: 04/14/23 20:25> <Mathew Stout - Last Filed: 04/26/23 06:46> - MDM Quicknote portion performed. Signed Raymond Blanchard PA-C (Raymond Blanchard) The patient had chest x-ray which I interpreted as showing cardiomegaly with vascular congestion, suggesting congestive heart failure. No acute infiltrate or pneumothorax This patient is 73-year-old woman here to have evaluation of dyspnea, palpitatio ns, chest pain. The physical exam is suggestive of congestive heart failure and the evaluation supports this. Patient will be admitted to have further evaluation and treatment. Was pt. sent in by a medical professional or institution (, PA, MORTGAGE LOAN FUNDER, urgent care, hospital, or care home...) When possible be specific @ -[No] Did you speak to anyone other than the patient for history (EMS, parent, family, police, friend...)? What history was obtained from this source @ -[No] Did you review nursing and triage notes (agree or disagree)? Why? @ -[I reviewed and agree with nursing and triage notes] Were old charts reviewed (outside hosp., previous admission, EMS record, old EKG, old radiological studies, urgent care reports/EKG's, care home records)? Report findings @ -[No old charts were reviewed] Differential Diagnosis (chest pain, altered mental status, abdominal pain women, abdominal pain men, vaginal bleeding, weakness, fever, dyspnea, syncope, headache, dizziness, GI bleed, back pain, seizure, CVA, palpatations, mental health, musculoskeletal)? @ -[Differential Dyspnea: Coronary syndrome, arrhythmia, tamponade, asthma, COPD, pulmonary embolism, pneumonia, pneumothorax, pulmonary effusion, anaphylaxis, diabetic ketoacidosis, flailed chest, pulmonary contusion, diaphragmatic rupture, anemia, neuromuscular, this is not meant to be an all-inclusive list. EKG interpreted by me (3pts min.). @ -[I interpreted As above] X-rays interpreted by me (1pt min.). @ -[I interpreted as above CT interpreted by me (1pt min.). @ -[None done] U/S interpreted by me (1pt. min.). @ -[None done] What testing was considered but not performed or refused? (CT, X-rays, U/S, labs)? Why? @ -[None] What meds were considered but not given or refused? Why? @ -[None] Did you discuss the management of the patient with other professionals (professionals i.e. , PA, MORTGAGE LOAN FUNDER, lab, RT, psych nurse, social science teacher, mobile heavy equipment operator, teacher, technology officer, rn case manager hospice)? Give summary @ -[Case discussed with admitting physician and treatment recommendations incorporated Was smoking cessation discussed for >3mins.? @ -[No] Was critical care preformed (if so, how long)? @ -[No] Were there social determinants of health that impacted care today? How? (Homele ssness, low income, unemployed, alcoholism, drug addiction, transportation, low edu. Level, literacy, decrease access to med. care, [facility], rehab)? @ -[No] Was there de-escalation of care discussed even if they declined (Discuss DNR or withdrawal of care, Hospice)? DNR status @ -[No] What co-morbidities impacted this encounter? (DM, HTN, Smoking, COPD, CAD, Cancer, CVA, ARF, Chemo, Hep., AIDS, mental health diagnosis, sleep apnea, morbid obesity)? @ -[History of diabetes, hypertension and arrhythmia Was patient admitted / discharged? Hospital course, mention meds given and route, prescriptions, significant lab abnormalities, going to OR and other pertinent info. @ -[As above Undiagnosed new problem with uncertain prognosis? @ -[No] Drug Therapy requiring intensive monitoring for toxicity (Heparin, Nitro, Insulin, Cardizem)? @ -[No] Were any procedures done? @ -[No] Diagnosis/symptom? @ -[Acute congestive heart failure Mild anemia Mild hypokalemia Acute, or Chronic, or Acute on Chronic? @ -[Acute Uncomplicated (without systemic symptoms) or Complicated (systemic symptoms)? @ -[Complicated by dyspnea Side effects of treatment? @ -[No] Exacerbation, Progression, or Severe Exacerbation? @ -[No] Poses a threat to life or bodily function? How? (Chest pain, USA, CT, pneumonia, PE, COPD, DKA, ARF, appy, cholecystitis, CVA, Diverticulitis, Homicidal, Suicidal, threat to staff... and all critical care pts) @ -[Yes (Mathew Stout) Disposition <Raymond Blanchard - Last Filed: 04/14/23 20:25> <Mathew Stout - Last Filed: 04/26/23 06:46> Clinical Impression: Congestive heart failure Disposition: ADMITTED IP TO THIS HOSP Condition: Fair
--- NOTE | 2023-04-14 21:34 | XR ---
EXAMINATION TYPE: XR chest 2V DATE OF EXAM: 04/14/2023 8:08 PM CLINICAL INDICATION:Female, 73 years old with history of Chest Pain; [facility] COMPARISON: 04/06/2023 TECHNIQUE: XR chest 2V. Frontal and lateral views of the chest.. FINDINGS: Heart is again moderately enlarged. Stable mediastinum. Pulmonary vascular congestion and interstitia l prominence suggesting edema have developed. There are new or larger small pleural effusions. No foc al lung consolidation. Fluid tracking versus linear atelectasis in the right midlung zone. No visuali zed pneumothorax. No acute osseous abnormality. Moderate multilevel spondylosis in the thoracic spine with neurostimulator leads terminating in the posterior spinal canal in the mid thoracic region. IMPRESSION: Cardiomegaly with findings suggesting mild/moderate CHF, new from the prior study.
[2023-04-14] MEDS ORDERED: HYDROcodone/APAP 7.5-325MG 1 EACH TAB PO ONE (21:52)
[2023-04-14] MEDS ORDERED: NITROGLYCERIN OINT 1 INCH/GM PACKET TOPICAL STA (21:53)
[2023-04-14] MEDS ORDERED: MORPHINE SULFATE 4 MG/ML SYRINGE IV STA (21:53)
[2023-04-14] MEDS ORDERED: FUROSEMIDE 10 MG/ML 4 ML VIAL IV STA (21:53)
[2023-04-14] MEDS ORDERED: METOPROLOL TARTRATE 5 MG/5 ML VIAL IVP STA (23:01)
[2023-04-14] MEDS ORDERED: POTASSIUM CHLORIDE ER 20 MEQ TAB.ER PO STA (23:08)
[2023-04-15] MEDS ORDERED: HYDROcodone/APAP 5-325MG 1 EACH TAB PO STA (00:04)
[2023-04-15] MEDS ORDERED: NALOXONE 0.4 MG/ML 1 ML VIAL IV PRN (00:17)
[2023-04-15] MEDS ORDERED: ACETAMINOPHEN TAB 325 MG TAB PO PRN (00:17)
[2023-04-15] MEDS: FUROSEMIDE 10 MG/ML 4 ML VIAL IV SCH ×4 (00:29→23:58)
[2023-04-15] MEDS ORDERED: NA PHOS,M-B/NA PHOS,DI-BA 133 ML ENEMA RECTAL PRN (10:06)
[2023-04-15] MEDS ORDERED: MAG HYDROX/AL HYDROX/SIMETH 30 ML CUP PO PRN (10:06)
[2023-04-15] MEDS ORDERED: MAGNESIUM HYDROXIDE 2,400 MG/30 ML CUP PO PRN (10:06)
[2023-04-15] MEDS ORDERED: NITROGLYCERIN SL TABS 0.4 MG TAB SUBLINGUAL PRN (10:06)
[2023-04-15] MEDS ORDERED: bisacodyL 10 MG SUPP RECTAL PRN (10:06)
[2023-04-15] MEDS ORDERED: NICOTINE GUM (POLACRILEX) 2 MG GUM BUCCAL PRN (10:06)
[2023-04-15] MEDS ORDERED: polyethylene glycoL 3350 17 GM POWD.PACK PO PRN (10:06)
[2023-04-15] MEDS ORDERED: DEXTROSE 50% SYRINGE 50 ML IVP PRN ×2 (10:09)
[2023-04-15] MEDS ORDERED: VANCOMYCIN 1,000 MG VIAL IVPB SCH (10:15)
[2023-04-15] MEDS ORDERED: VANCOMYCIN 1,250 MG in SODIUM CHLORIDE 0.9% 250 ML IVPB SCH (10:30)
[2023-04-15] MEDS: CHOLECALCIFEROL 25 MCG (1000 IU) TABLET PO SCH (11:09)
[2023-04-15] MEDS: CYANOCOBALAMIN 500 MCG TAB PO SCH (11:09)
[2023-04-15] MEDS: ISOSORBIDE MONONITRATE ER 30 MG TAB.ER.24H PO SCH (11:09)
[2023-04-15] MEDS: SPIRONOLACTONE 25 MG TAB PO SCH (11:09)
[2023-04-15] MEDS: ESCITALOPRAM 10 MG TAB PO SCH (11:09)
[2023-04-15 11:29] LABS: NT-Pro-B-Type Natriuretic Pept 7690 pg/mL
[2023-04-15 11:47] LABS: African American GFR (CKD) >90 (>60 ml/min/1.73 sqM); Anion Gap 7 mmol/L; Blood Urea Nitrogen 4 mg/dL (7-17); Calcium 10.1 mg/dL (8.4-10.2); Carbon Dioxide 35 mmol/L (22-30); Chloride 102 mmol/L (98-107); Glucose 122 mg/dL (74-99); Non-African American GFR(CKD) 87 (>60 ml/min/1.73 sqM); Potassium 3.4 mmol/L (3.5-5.1); Sodium 144 mmol/L (137-145)
[2023-04-15 12:06] LABS: Glucose,Whole Blood 147 mg/dL (70-110)
[2023-04-15] MEDS: INSULIN ASPART (NovoLOG) 100 UNIT/ML VIAL SQ SCH ×3 (12:17→21:33)
[2023-04-15] MEDS: FOLIC ACID 1 MG TAB PO SCH (12:28)
[2023-04-15] MEDS ORDERED: IPRATROPIUM-ALBUTEROL 3 ML NEB INHALATION PRN (12:28)
[2023-04-15] MEDS ORDERED: Magnesium Replacement Protocol 1 EACH MISC MISCELLANE PRN (12:41)
[2023-04-15] MEDS ORDERED: Potassium Replacement Protocol 1 EACH MISC MISCELLANE PRN (12:41)
--- NOTE | 2023-04-15 13:08 | HP ---
HISTORY AND PHYSICAL CHIEF COMPLAINTS: Chest pain and shortness of breath. HISTORY OF PRESENT ILLNESS: This is a 73-year-old woman with a past medical history of multiple medical problems, recently admitted with UTI and possible proctitis. The patient had MRSA positive, patient on IV antibiotics. The patient apparently was receiving physical therapy. Patient complaining of right-sided chest pain as well as shortness of breath. The patient came to [facility] and admitted for further evaluation and treatment. Chest x-ray showed possibly a combination of COPD and CHF. There is no history of any fever, rigors, or chills at this time. Ejection fraction was normal previously. PAST MEDICAL HISTORY: Reviewed include recent MRSA, atrial fibrillation, rest of the history and chart is also reviewed. HOME MEDICATIONS: Reviewed include vancomycin, dose and rest of medications reviewed. ALLERGIES: None. FAMILY HISTORY: History of breast cancer in the family. SOCIAL HISTORY: Previous history of smoking, CBD gummies. REVIEW OF SYSTEMS: A 14-point review is negative except as mentioned earlier. PHYSICAL EXAMINATION: VITAL SIGNS: Pulse 76, blood pressure 150/80, and respirations 18. HEENT: Conjunctivae normal. NECK: No jugular venous distention. CARDIOVASCULAR: S1, S2 muffled. RESPIRATIONS: Breathing efforts are markedly increased, bilateral scattered rhonchi and crackles. ABDOMEN: Soft, nontender. LEGS: No edema, no swelling. NERVOUS SYSTEM: No focal deficit. SKIN: No ulcer, rash, or bleeding. JOINTS: No active deforming arthropathy. LABORATORY DATA: Reviewed. Chest x-ray reviewed personally. Potassium 3.4. ASSESSMENT: 1. Shortness of breath, possibly combination of COPD acute exacerbation, CHF acute exacerbation, acute on chronic diastolic dysfunction. 2. Chest pain, rule out unstable angina. 3. Hypokalemia. 4. History of recent MRSA. 5. UTI. 6. Atrial fibrillation. 7. Diabetes mellitus type 2. 8. Severe pain. 9. Hypertension. 10.History of CVA. 11.History of cholecystectomy. 12.Multiple medical issues. RECOMMENDATIONS AND DISCUSSION: This 73-year-old woman presented with multiple complex medical issues, we will monitor the patient closely. I would recommend to continue the current medications. Gentle diuresis, cardiology consultation. I would also recommend intensive bronchodilator treatment and incentive spirometry. Repeat labs. Resume the home medications once they are confirmed. Overall prognosis is extremely guarded because of multiple complex medical issues as mentioned earlier. I believe the shortness of breath is secondary to combination of COPD and CHF at this time. However, we will continue to monitor. We will also consult Dr. Escobar for continued IV antibiotic treatment. Pain management has been recommended. See orders for further details. Further recommendations to follow. MMODL / IJN: [id number] /
[2023-04-15] MEDS: azaTHIOprine 50 MG TAB PO SCH ×2 (13:44→21:37)
[2023-04-15] MEDS: HYDROmorphone 0.5 MG/0.5 ML SYRINGE IVP PRN ×2 (13:44→19:53)
[2023-04-15] MEDS: POTASSIUM CHLORIDE ER 20 MEQ TAB.ER PO SCH ×2 (13:44→21:36)
[2023-04-15] MEDS: IPRATROPIUM-ALBUTEROL 3 ML NEB INHALATION SCH ×2 (15:19→20:13)
[2023-04-15] MEDS: METOPROLOL TARTRATE 50 MG TAB PO SCH (17:01)
[2023-04-15] MEDS: DOCUSATE 100 MG CAP PO SCH (17:01)
[2023-04-15] MEDS: APIXABAN 5 MG TAB PO SCH (17:01)
[2023-04-15] MEDS: LACTULOSE 20 GM/30 ML CUP PO SCH (17:02)
[2023-04-15 17:06] LABS: Glucose,Whole Blood 140 mg/dL (70-110)
[2023-04-15] MEDS: SYMBICORT 160-4.5 MCG INHALER INHALATION SCH (20:13)
[2023-04-15 20:34] LABS: Glucose,Whole Blood 159 mg/dL (70-110)
--- NOTE | 2023-04-15 21:10 | P.CONS ---
History of Present Illness - Reason for Consult Consult date: 04/15/23 PICC, antibiotic management Requesting physician: Vinod Andres - Chief Complaint Chest pain x 1 day - History of Present Illness Patient is a 73-year-old -[place] female with a past medical history significant for diabetes mellitus hypertension atrial fibrillation spinal stenosis recently admitted at this facility and did have MRSA urinary tract infection patient presented with significant hematuria CT was also suspicious for possible proctitis however the patient did have a colonoscopy did not show any evidence of inflammation as the patient was on Lexapro and we cannot use oral Zyvox and the organism was resistant to Bactrim patient did get a PICC line and was advised a 7 to 10-day course of vancomycin patient was just discharged from this facility yesterday's been brought back to the hospital from the local senior living with concern for chest pain patient apparently was with the physical therapy when she started feeling pain on the right side of the chest with associated shortness of breath for the patient was brought into the hospital on arrival to the ER patient did have a low-grade fever of 99.1 F however no fever have recorded subsequently, patient was not hypotensive or hypoxic did have a white count of 6.7 creatinine was 0.70 patient has been continued on vancomycin infectious disease was consulted for further management of antibiotic therapy, patient mention breathing slightly comfortably since being admitted to the hospital chest pain has decreased in intensity denies any cough or sputum production no nausea vomiting no abdominal pain or diarrhea mention urine is slightly clearing out and no jayshree hematuria suprapubic or flank pain Review of Systems Positive point and negatives has been mentioned in the HPI, complete review of systems was performed and all other systems are negative Past Medical History Past Medical History: Atrial Fibrillation, Diabetes Mellitus, Hypertension Additional Past Medical History / Comment(s): 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 Spinal stenosis. Poss thyroid issue. Varicose veins,. CHF History of Any Multi-Drug Resistant Organisms: MRSA Year Discovered:: 04/05/23 MDRO Source:: Urine Past Surgical History: Cholecystectomy, Heart Catheterization, Hernia Repair, Orthopedic Surgery Additional Past Surgical History / Comment(s): removed bone in left foot, Umbilical hernia, CARDIOVERSION, total right knee replacement Past Anesthesia/Blood Transfusion Reactions: No Reported Reaction Past Psychological History: Anxiety, Depression Smoking Status: Former smoker Past Alcohol Use History: None Reported Additional Past Alcohol Use History / Comment(s): Smoked 20 years, 1 ppd, quit 2002 Past Drug Use History: None Reported Additional Drug Use History / Comment(s): CBD gummies occ for pain, last 1 month ago - Past Family History Father History Unknown: Yes Sister(s) Family Medical History: Cancer Additional Family Medical History / Comment(s): breast cancer Mother Family Medical History: Deep Vein Thrombosis (DVT) Medications and Allergies Home Medications Medication Instructions Recorded Confirmed Type Folic Acid 1 mg PO DAILY@1200 09/07/22 04/14/23 History metHOTREXate sodium [Methotrexate] 20 mg PO MO 10/16/22 04/14/23 History Apixaban [Eliquis] 5 mg PO BID@0800,1700 02/14/23 04/14/23 History Cholecalciferol [Vitamin D3 (25 25 mcg PO DAILY@0800 02/14/23 04/14/23 History Mcg = 1000 Iu)] Docusate [Colace] 100 mg PO BID@0800,1700 02/14/23 04/14/23 History Empagliflozin [Jardiance] 10 mg PO DAILY@0600 02/14/23 04/14/23 History Escitalopram Oxalate [Lexapro] 10 mg PO DAILY@0800 02/14/23 04/14/23 History Ferrous Sulfate [Iron (65 MG 325 mg PO DAILY@0800 02/14/23 04/14/23 History Elemental)] INSULIN LISPRO (HumaLOG) [humaLOG] See Protocol SQ 02/14/23 04/14/23 History ACHS@07,11,1630,2130 Isosorbide Mononitrate ER [Imdur] 30 mg PO DAILY@0800 02/14/23 04/14/23 History Lactulose 10 gm PO BID@0800,1700 02/14/23 04/14/23 History Na Phos,M-B/Na Phos,Di-Ba [Fleet 133 ml RECTAL DAILY PRN 02/14/23 04/14/23 History Adult] Nitroglycerin Sl Tabs [Nitrostat] 0.4 mg PO Q5M PRN 02/14/23 04/14/23 History Spironolactone 25 mg PO DAILY@0800 02/14/23 04/14/23 History azaTHIOprine [Imuran] 50 mg PO TID@0600,1400,2200 02/14/23 04/14/23 History bisacodyL [Dulcolax] 10 mg RECTAL DAILY PRN 02/14/23 04/14/23 History polyethylene glycoL 3350 [Miralax] 17 gm PO DAILY PRN 02/14/23 04/14/23 History traZODone HCL [Desyrel] 50 mg PO HS@2100 02/14/23 04/14/23 History Cyanocobalamin [Vitamin B-12] 500 mcg PO DAILY@0800 04/05/23 04/14/23 History Mag Hydrox/Al Hydrox/Simeth 30 ml PO Q6H PRN 04/05/23 04/14/23 History [Maalox] Nicotine Polacrilex [Nicotine Gum] 4 mg BC BID PRN 04/05/23 04/14/23 History Sennosides [Senokot] 17.2 mg PO HS@2100 04/05/23 04/14/23 History Acetaminophen Tab [Tylenol] 650 mg PO Q6HR PRN tab 04/13/23 04/14/23 Rx Magnesium Hydroxide [Milk of 7,200 mg PO DAILY PRN 04/14/23 04/14/23 History Magnesia Concentrate] Metoprolol Tartrate [Lopressor] 50 mg PO BID@0800,1700 04/14/23 04/14/23 History Omeprazole 40 mg PO DAILY@0800 04/14/23 04/14/23 History Budesonide-Formot 160-4.5 Mcg 2 puff INHALATION RT-BID each 04/20/23 Rx [Symbicort 160-4.5 Mcg Inhaler] Furosemide [Lasix] 40 mg PO DAILY tab 04/20/23 Rx HYDROcodone/APAP 10-325MG [[place] 1 each PO Q6HR PRN #2 tab 04/20/23 Rx 10-325] Ipratropium-Albuterol Nebulize 3 ml INHALATION RT-QID each 04/20/23 Rx [Duoneb 0.5 mg-3 mg/3 ml Soln] Ipratropium-Albuterol Nebulize 3 ml INHALATION RT-QID PRN each 04/20/23 Rx [Duoneb 0.5 mg-3 mg/3 ml Soln] Oxycodone Myristate [Xtampza ER] 9 mg PO BID@0800,2100 #2 cap 04/20/23 Rx Potassium Chloride ER [K-Dur 20] 20 meq PO BID tab 04/20/23 Rx Vancomycin 1,250 mg IVPB DAILY 5 Days #5 each 04/20/23 04/14/23 Rx Allergies Allergy/AdvReac Type Severity Reaction Status Date / Time No Known Allergies Allergy Verified 04/14/23 23:08 Physical Exam Vitals: Vital Signs Temp Pulse Pulse Resp BP BP Pulse Ox 04/15/23 08:00 98 F 94 16 164/87 97 04/15/23 06:18 98.6 F 76 18 155/80 96 04/15/23 05:30 163/83 04/15/23 01:42 97.6 F 81 18 173/90 95 04/15/23 01:08 88 20 166/89 96 04/14/23 23:55 97.7 F 86 20 179/97 96 04/14/23 22:40 82 12 04/14/23 22:30 78 17 04/14/23 22:20 82 22 04/14/23 22:10 175/114 04/14/23 22:09 84 16 175/114 98 04/14/23 22:07 98 04/14/23 19:50 99.1 F 89 18 162/86 98 Intake and Output 04/14/23 04/15/23 04/15/23 22:59 06:59 14:59 Intake Total 518 Output Total 2600 Balance -2081 Intake: Oral 518 Output: Urine 2600 Other: Voiding Method External Catheter Diaper Weight 75.296 kg 73.25 kg GENERAL DESCRIPTION: Elderly female lying in bed, no distress. No tachypnea or accessory muscle of respiration use. HEENT: Shows Pallor , no scleral icterus. Oral mucous membrane is dry. No pharyngeal erythema or thrush NECK: Trachea central, no thyromegaly. LUNGS: Unlabored breathing. Clear to auscultation anteriorly. No wheeze or crackle. HEART: S1, S2, regular rate and rhythm. No loud murmur ABDOMEN: Soft, no tenderness , guarding or rigidity, no organomegaly EXTREMITIES: No edema of feet. SKIN: No rash, no masses palpable. NEUROLOGICAL: The patient is awake, alert, oriented x3, mood and affect normal. Results CBC & Chem 7: 04/18/23 06:09 04/19/23 06:35 Labs: Abnormal Lab Results - Last 24 Hours (Table) 04/14/23 04/14/23 04/15/23 Range/Units 19:55 19:55 10:40 RBC 2.93 L (3.80-5.40) m/uL Hgb 8.9 L (11.4-16.0) gm/dL Hct 27.5 L (34.0-46.0) % RDW 18.5 H (11.5-15.5) % Potassium 3.3 L 3.4 L (3.5-5.1) mmol/L Chloride 108 H (98-107) mmol/L Carbon Dioxide 35 H (22-30) mmol/L BUN 6 L 4 L (7-17) mg/dL Glucose 105 H 122 H (74-99) mg/dL POC Glucose (mg/dL) (70-110) mg/dL Total Protein 5.6 L (6.3-8.2) g/dL Albumin 3.1 L (3.5-5.0) g/dL 04/15/23 Range/Units 12:04 RBC (3.80-5.40) m/uL Hgb (11.4-16.0) gm/dL Hct (34.0-46.0) % RDW (11.5-15.5) % Potassium (3.5-5.1) mmol/L Chloride (98-107) mmol/L Carbon Dioxide (22-30) mmol/L BUN (7-17) mg/dL Glucose (74-99) mg/dL POC Glucose (mg/dL) 147 H (70-110) mg/dL Total Protein (6.3-8.2) g/dL Albumin (3.5-5.0) g/dL Assessment and Plan (1) MRSA (methicillin resistant staph aureus) culture positive Status: Acute Code(s): Z22.322 - CARRIER OR SUSPECTED CARRIER OF METHICILLIN RESIS STAPH SNOMED Code(s): 989217054 (2) UTI (urinary tract infection) Status: Acute Code(s): N39.0 - URINARY TRACT INFECTION, SITE NOT SPECIFIED SNOMED Code(s): 98927631 Plan: 1patient with recent admission to the hospital with a complicated UTI urine culture positive for MRSA blood cultures were negative did have significant hematuria radiology recommended workup as an outpatient patient now presenting back to the hospital with chest pain and shortness of breath and cardiac workup in progress 2-we will continue patient on vancomycin pharmacy to dose target of 15 while watching her kidney function closely creatinine is currently stable We will follow on clinical condition and cultures to further adjust medication if needed Thank you for this consultation we will follow the patient along with you Dictation was produced using [employer] dictation software. please excuse any grammatical, word or spelling errors. Time with Patient: Greater than 30
[2023-04-15] MEDS: SENNOSIDES 8.6 MG TAB PO SCH (21:33)
[2023-04-15] MEDS: HYDROcodone/APAP 5-325MG 1 EACH TAB PO PRN (21:33)
[2023-04-15] MEDS: traZODone HCL 50 MG TAB PO SCH (21:33)
[2023-04-15] MEDS: OXYCODONE MYRISTATE 9 MG PO SCH (21:55)
[2023-04-16] MEDS: VANCOMYCIN 1,250 MG in SODIUM CHLORIDE 0.9% 250 ML IVPB SCH ×2 (01:59→18:38)
[2023-04-16] MEDS: HYDROmorphone 0.5 MG/0.5 ML SYRINGE IVP PRN ×2 (02:08→20:40)
[2023-04-16] MEDS: azaTHIOprine 50 MG TAB PO SCH ×3 (05:41→20:41)
[2023-04-16] MEDS: DAPAGLIFLOZIN PROPANEDIOL 5 MG TABLET PO SCH (05:41)
[2023-04-16 07:56] LABS: Glucose,Whole Blood 114 mg/dL (70-110)
[2023-04-16] MEDS: SYMBICORT 160-4.5 MCG INHALER INHALATION SCH ×2 (08:05→18:03)
[2023-04-16] MEDS: IPRATROPIUM-ALBUTEROL 3 ML NEB INHALATION SCH ×4 (08:05→18:03)
[2023-04-16] MEDS: INSULIN ASPART (NovoLOG) 100 UNIT/ML VIAL SQ SCH ×4 (08:09→20:47)
--- NOTE | 2023-04-16 08:42 | P.CRDCN ---
History of Present Illness Consult date: 04/16/23 Chief complaint: Shortness of breath History of present illness: The patient is a 73-year-old female patient was no [place] fro m before with a past medical history significant for hypertension and hypertensive heart disease and dyslipidemia and permanent atrial fibrillation who was brought to the hospital from [facility] care facility for further evaluation of increasing in the shortness of breath over the last several days. The patient has been experiencing increasing in the shortness of breath associated with bilateral lower extremity edema and she also developed some chest discomfort. She gained weight. The she was on diuretics including Lasix and Aldactone at the [facility] facility. No fever and no chills and no cough or sputum production. No dizziness or lightheadedness or any feeling of heart racing or fluttering or any presyncope or syncope. She underwent further workup here including an EKG and that showed atrial fibrillation with diffuse nonspecific ST and T wave abnormalities and also she underwent one set of troponin came in to be unremarkable he underwent to obtain 2 more sets of troponin. The chest x-ray showed findings consistent with heart failure. The patient was started on Lasix IV and she was admitted to the hospital and she is feeling already better today. She underwent a heart catheterization in September 2022 and that showed elevated left-sided filling pressure with mild nonobs tructive coronary artery disease and she underwent an echocardiogram in 2023 showing normal left ventricular systolic function with evidence of hypertensive heart disease with LVH and moderate mitral regurgitation and moderate to severe pulmonary hypertension. The patient is on oral anticoagulation and that [place] she is also on beta sid with metoprolol. The atrial fibrillation appeared to be under good control. The examination is remarkable for diminished breathing sounds bilaterally and mild bilateral lower extremity edema and irregular rhythm with distant heart sounds. Assessment Heart failure exacerbation related to diastole dysfunction with evidence of r ight and left heart failure Atrial fibrillation with controlled heart rate. 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 Spinal stenosis. Poss thyroid issue. Varicose veins,. CHF History of Any Multi-Drug Resistant Organisms: MRSA Date of last positivie culture/infection: 04/05/23 MDRO Source:: Urine Past Surgical History: Cholecystectomy, Heart Catheterization, Hernia Repair, Or thopedic Surgery Additional Past Surgical History / Comment(s): removed bone in left foot, Umbilical hernia, CARDIOVERSION, total right knee replacement Past Anesthesia/Blood Transfusion Reactions: No Reported Reaction Past Psychological History: Anxiety, Depression Smoking Status: Former smoker Past Alcohol Use History: None Reported Additional Past Alcohol Use History / Comment(s): Smoked 20 years, 1 ppd, quit 2002 Past Drug Use History: None Reported Additional Drug Use History / Comment(s): CBD gummies occ for pain, last 1 month ago - Past Family History Father History Unknown: Yes Sister(s) Family Medical History: Cancer Additional Family Medical History / Comment(s): breast cancer Mother Family Medical History: Deep Vein Thrombosis (DVT) Medications and Allergies Home Medications Medication Instructions Recorded Confirmed Type Folic Acid 1 mg PO DAILY@1200 09/07/22 04/14/23 History metHOTREXate sodium [Methotrexate] 20 mg PO MO 10/16/22 04/14/23 History Apixaban [Eliquis] 5 mg PO BID@0800,1700 02/14/23 04/14/23 History Cholecalciferol [Vitamin D3 (25 25 mcg PO DAILY@0800 02/14/23 04/14/23 History Mcg = 1000 Iu)] Docusate [Colace] 100 mg PO BID@0800,1700 02/14/23 04/14/23 History Empagliflozin [Jardiance] 10 mg PO DAILY@0600 02/14/23 04/14/23 History Escitalopram Oxalate [Lexapro] 10 mg PO DAILY@0800 02/14/23 04/14/23 History Ferrous Sulfate [Iron (65 MG 325 mg PO DAILY@0800 02/14/23 04/14/23 History Elemental)] Furosemide [Lasix] 20 mg PO DAILY@0800 02/14/23 04/14/23 History INSULIN LISPRO (HumaLOG) [humaLOG] See Protocol SQ 02/14/23 04/14/23 History ACHS@07,11,1630,2130 Isosorbide Mononitrate ER [Imdur] 30 mg PO DAILY@0800 02/14/23 04/14/23 History Lactulose 10 gm PO BID@0800,1700 02/14/23 04/14/23 History Na Phos,M-B/Na Phos,Di-Ba [Fleet 133 ml RECTAL DAILY PRN 02/14/23 04/14/23 History Adult] Nitroglycerin Sl Tabs [Nitrostat] 0.4 mg PO Q5M PRN 02/14/23 04/14/23 History Spironolactone 25 mg PO DAILY@0800 02/14/23 04/14/23 History azaTHIOprine [Imuran] 50 mg PO TID@0600,1400,2200 02/14/23 04/14/23 History bisacodyL [Dulcolax] 10 mg RECTAL DAILY PRN 02/14/23 04/14/23 History polyethylene glycoL 3350 [Miralax] 17 gm PO DAILY PRN 02/14/23 04/14/23 History traZODone HCL [Desyrel] 50 mg PO HS@209902/14/23 04/14/23 History Cyanocobalamin [Vitamin B-12] 500 mcg PO DAILY@0804/05/23 04/14/23 History Mag Hydrox/Al Hydrox/Simeth 30 ml PO Q6H PRN 04/05/23 04/14/23 History [Maalox] Nicotine Polacrilex [Nicotine Gum] 4 mg BC BID PRN 04/05/23 04/14/23 History Sennosides [Senokot] 17.2 mg PO HS@209904/05/23 04/14/23 History Acetaminophen Tab [Tylenol] 650 mg PO Q6HR PRN tab 04/13/23 04/14/23 Rx HYDROcodone/APAP 10-325MG [Jay 1 tab PO Q6HR PRN #6 tab 04/13/23 04/14/23 Rx 10-325] Magnesium Hydroxide [Milk of 7,200 mg PO DAILY PRN 04/14/23 04/14/23 History Magnesia Concentrate] Metoprolol Tartrate [Lopressor] 50 mg PO BID@0800,1700 04/14/23 04/14/23 History Omeprazole 40 mg PO DAILY@0800 04/14/23 04/14/23 History Oxycodone Myristate [Xtampza ER] 9 mg PO BID@0800,209904/14/23 04/14/23 History Vancomycin 1,250 mg IVPB DAILY 04/14/23 04/14/23 History Allergies Allergy/AdvReac Type Severity Reaction Status Date / Time No Known Allergies Allergy Verified 04/14/23 23:08 Physical Exam Vitals: Vital Signs Temp Pulse Pulse Resp BP Pulse Ox 04/16/23 07:54 98.3 F 104 H 18 170/90 93 L 04/16/23 01:31 98.3 F 88 18 141/86 95 04/15/23 19:52 98.4 F 95 16 147/84 93 L 04/15/23 17:04 89 19 145/89 96 04/15/23 15:44 98.7 F 67 16 153/80 96 04/15/23 15:31 88 04/15/23 15:19 88 Intake and Output 04/15/23 04/16/23 04/16/23 22:59 06:59 14:59 Intake Total 960 Output Total 950 Balance -950 960 Intake: Intake, IV Titration 250 Amount Vancomycin 1,250 mg In 250 Sodium Chloride 0.9% 250 ml @ 125 mls/hr IVPB Q16H [facility] Rx#:[id number] Oral 710 Output: Urine 950 Other: Voiding Method Toilet Diaper # Voids 1 Weight 73.26 kg Results 04/14/23 19:55 04/15/23 10:40 Comprehensive Metabolic Panel 04/15/23 Range/Units 10:40 Sodium 144 (137-145) mmol/L Potassium 3.4 L (3.5-5.1) mmol/L Chloride 102 (98-107) mmol/L Carbon Dioxide 35 H (22-30) mmol/L BUN 4 L (7-17) mg/dL Creatinine 0.70 (0.52-1.04) mg/dL Glucose 122 H (74-99) mg/dL Calcium 10.1 (8.4-10.2) mg/dL Current Medications Generic Name Dose Route Start Last Admin Trade Name Freq PRN Reason Stop Dose Admin Acetaminophen 650 mg 04/15/23 10:06 Acetaminophen Tab 325 Mg Tab PO Q6HR PRN Mild Pain or Fever > 100.5 Hydrocodone Bitart/Acetaminophen 1 each 04/15/23 10:06 Hydrocodone/Apap 10-325mg 1 Each Tab PO Q6HR PRN Pain Hydrocodone Bitart/Acetaminophen 1 each 04/15/23 12:29 04/15/23 21:33 Hydrocodone/Apap 5-325mg 1 Each Tab PO 1 each Q6HR PRN Administration Pain Al Hydroxide/Mg Hydroxide 30 ml 04/15/23 10:06 Mag Hydrox/Al Hydrox/Simeth 30 Ml Cup PO Q6H PRN anti gas Albuterol/Ipratropium 3 ml 04/15/23 16:00 04/16/23 08:05 Ipratropium-Albuterol 3 Ml Neb INHALATION Not Given RT-QID EMMY Albuterol/Ipratropium 3 ml 04/15/23 12:28 Ipratropium-Albuterol 3 Ml Neb INHALATION RT-QID PRN Shortness Of Breath Or Wheezing Apixaban 5 mg 04/15/23 17:00 04/15/23 17:01 Apixaban 5 Mg Tab PO 5 mg BID@0800,1700 EMMY Administration Protocol Azathioprine 50 mg 04/15/23 14:00 04/16/23 05:41 Azathioprine 50 Mg Tab PO 50 mg TID@0600,1400,2200 EMMY Administration Bisacodyl 10 mg 04/15/23 10:06 Bisacodyl 10 Mg Supp RECTAL DAILY PRN Constipation Budesonide/Formoterol Fumarate 2 puff 04/15/23 20:00 04/16/23 08:05 Symbicort 160-4.5 Mcg Inhaler INHALATION Not Given RT-BID EMMY Cholecalciferol 25 mcg 04/15/23 10:07 04/15/23 11:09 Cholecalciferol 25 Mcg (1000 Iu) Tablet PO 25 mcg DAILY@0800 EMMY Administration Cyanocobalamin 500 mcg 04/15/23 10:07 04/15/23 11:09 Cyanocobalamin 500 Mcg Tab PO 500 mcg DAILY@0800 EMMY Administration Dapagliflozin 5 mg 04/16/23 06:00 04/16/23 05:41 Dapagliflozin Propanediol 5 Mg Tablet PO 5 mg DAILY@0600 EMMY Administration Dextrose/Water 25 ml 04/15/23 10:09 Dextrose 50% Syringe 50 Ml IVP PER PROTOCOL PRN Hypoglycemia Protocol Dextrose/Water 50 ml 04/15/23 10:09 Dextrose 50% Syringe 50 Ml IVP PER PROTOCOL PRN Hypoglycemia Protocol Docusate Sodium 100 mg 04/15/23 17:00 04/15/23 17:01 Docusate 100 Mg Cap PO 100 mg BID@0800,1700 [facility] Administration Escitalopram Oxalate 10 mg 04/15/23 10:07 04/15/23 11:09 Escitalopram 10 Mg Tab PO 10 mg DAILY@0800 [facility] Administration Ferrous Sulfate 325 mg 04/16/23 08:00 Ferrous Sulfate 325 Mg Tab PO DAILY@0800 [facility] Folic Acid 1 mg 04/15/23 12:00 04/15/23 12:28 Folic Acid 1 Mg Tab PO 1 mg DAILY@1200 [facility] Administration Furosemide 40 mg 04/15/23 00:30 04/15/23 23:58 Furosemide 10 Mg/Ml 4 Ml Vial IV 40 mg Q8H [facility] Administration Hydromorphone HCl 0.5 mg 04/15/23 12:29 04/16/23 02:08 Hydromorphone 0.5 Mg/0.5 Ml Syringe IVP 0.5 mg Q6HR PRN Administration Severe Pain (Scale 7 to 10) Vancomycin HCl 1,250 mg/ 250 mls @ 125 mls/hr 04/16/23 03:00 04/16/23 01:59 Sodium Chloride IVPB 125 mls/hr Q16H [facility] Administration Insulin Aspart 0 unit 04/15/23 12:30 04/16/23 08:09 Insulin Aspart (Novolog) 100 Unit/Ml Vial SQ Not Given ACHS [facility] Protocol Isosorbide Mononitrate 30 mg 04/15/23 10:08 04/15/23 11:09 Isosorbide Mononitrate Er 30 Mg Tab.Er.24h PO 30 mg DAILY@0800 [facility] Administration Lactulose 10 gm 04/15/23 17:00 04/15/23 17:02 Lactulose 20 Gm/30 Ml Cup PO Not Given BID@0800,1700 [facility] Magnesium Hydroxide 2,400 mg 04/15/23 10:06 Magnesium Hydroxide 2,400 Mg/30 Ml Cup PO DAILY PRN Constipation Methotrexate 20 mg 04/18/23 09:00 Methotrexate Sodium 2.5 Mg Tab PO MO [facility] Metoprolol Tartrate 50 mg 04/15/23 17:00 04/15/23 17:01 Metoprolol Tartrate 50 Mg Tab PO 50 mg BID@0800,1700 [facility] Administration Miscellaneous Information 1 each 04/15/23 12:41 Magnesium Replacement Protocol 1 Each Mis MISCELLANE DAILY PRN Per Protocol Protocol Miscellaneous Information 1 each 04/15/23 12:41 Potassium Replacement Protocol 1 Each [facility] [place]IS[place]ANE DAILY PRN Per Protocol Protocol Naloxone HCl 0.2 mg 04/15/23 00:17 Naloxone 0.4 Mg/Ml 1 Ml Vial IV Q2M PRN Opioid Reversal Nicotine Polacrilex 4 mg 04/15/23 10:06 Nicotine Gum (Polacrilex) 2 Mg Gum BUCCAL BID PRN smoking cessation Nitroglycerin 0.4 mg 04/15/23 10:06 Nitroglycerin Sl Tabs 0.4 Mg Tab SUBLINGUAL Q5M PRN Chest Pain Non-Formulary Medication 9 mg 04/15/23 21:00 04/15/23 21:55 Oxycodone Myristate [Xtampza Er] PO Not Given BID@0800,2100 [facility] Pantoprazole Sodium 40 mg 04/16/23 08:00 Pantoprazole 40 Mg Tablet PO DAILY@0800 [facility] Polyethylene Glycol 17 gm 04/15/23 10:06 Polyethylene Glycol 3350 17 Gm Powd.Pack PO DAILY PRN Constipation Potassium Chloride 20 meq 04/15/23 13:30 04/15/23 21:36 Potassium Chloride Er 20 Meq Tab.Er PO 20 meq BID EMMY Administration Senna 17.2 mg 04/15/23 21:00 04/15/23 21:33 Sennosides 8.6 Mg Tab PO 17.2 mg HS@2100 [facility] Administration Sodium Biphosphate/Sodium Phosphate 133 ml 04/15/23 10:06 Na Phos,M-B/Na Phos,Di-Ba 133 Ml Enema RECTAL DAILY PRN Constipation Spironolactone 25 mg 04/15/23 10:08 04/15/23 11:09 Spironolactone 25 Mg Tab PO 25 mg DAILY@0800 [facility] Administration Trazodone HCl 50 mg 04/15/23 21:00 04/15/23 21:33 Trazodone Hcl 50 Mg Tab PO 50 mg HS@2100 [facility] Administration Intake and Output 04/15/23 04/16/23 04/16/23 22:59 06:59 14:59 Intake Total 960 Output Total 950 Balance -950 960 Intake: Intake, IV Titration 250 Amount Vancomycin 1,250 mg In 250 Sodium Chloride 0.9% 250 ml @ 125 mls/hr IVPB Q16H [facility] Rx#:[id number] Oral 710 Output: Urine 950 Other: Voiding Method Toilet Diaper # Voids 1 Weight 73.26 kg 04/14/23 19:55 04/15/23 10:40
[2023-04-16 09:22] LABS: Anisocytosis Slight; Basophils # (A) 0.1 k/uL (0-0.2); Basophils % (A) 1 %; Eosinophils # (A) 0.3 k/uL (0-0.7); Eosinophils % (A) 5 %; HCT 27.1 % (34.0-46.0); HGB 8.7 gm/dL (11.4-16.0); Hypochromasia Moderate; Lymphocytes # (A) 1.3 k/uL (1.0-4.8); Lymphocytes % (A) 21 %; MCH 30.5 pg (25.0-35.0); MCV 95.4 fL (80.0-100.0); Macrocytosis Slight; Mean Platelet Volume 7.2; Monocytes # (A) 0.4 k/uL (0-1.0); Monocytes % (A) 7 %; Neutrophils % (A) 65 %; Platelet Count 398 k/uL (150-450); RBC 2.84 m/uL (3.80-5.40); WBC 6.2 k/uL (3.8-10.6)
[2023-04-16 09:46] LABS: African American GFR (CKD) >90 (>60 ml/min/1.73 sqM); Anion Gap 8 mmol/L; Blood Urea Nitrogen 6 mg/dL (7-17); Calcium 9.4 mg/dL (8.4-10.2); Carbon Dioxide 34 mmol/L (22-30); Chloride 100 mmol/L (98-107); Glucose 100 mg/dL (74-99); Non-African American GFR(CKD) 90 (>60 ml/min/1.73 sqM); Potassium 3.5 mmol/L (3.5-5.1); Sodium 142 mmol/L (137-145)
[2023-04-16] MEDS: ESCITALOPRAM 10 MG TAB PO SCH (10:22)
[2023-04-16] MEDS: SPIRONOLACTONE 25 MG TAB PO SCH (10:23)
[2023-04-16] MEDS: ISOSORBIDE MONONITRATE ER 30 MG TAB.ER.24H PO SCH (10:23)
[2023-04-16] MEDS: CHOLECALCIFEROL 25 MCG (1000 IU) TABLET PO SCH (10:23)
[2023-04-16] MEDS: APIXABAN 5 MG TAB PO SCH ×2 (10:23→17:06)
[2023-04-16] MEDS: PANTOPRAZOLE 40 MG TABLET PO SCH (10:23)
[2023-04-16] MEDS: POTASSIUM CHLORIDE ER 20 MEQ TAB.ER PO SCH ×2 (10:23→20:40)
[2023-04-16] MEDS: METOPROLOL TARTRATE 50 MG TAB PO SCH ×2 (10:23→17:06)
[2023-04-16] MEDS: DOCUSATE 100 MG CAP PO SCH ×2 (10:23→17:06)
[2023-04-16] MEDS: CYANOCOBALAMIN 500 MCG TAB PO SCH (10:23)
[2023-04-16] MEDS: LACTULOSE 20 GM/30 ML CUP PO SCH ×2 (10:24→17:06)
[2023-04-16] MEDS: OXYCODONE MYRISTATE 9 MG PO SCH ×2 (10:25→20:36)
[2023-04-16] MEDS: FERROUS SULFATE 325 MG TAB PO SCH (10:25)
[2023-04-16] MEDS: HYDROcodone/APAP 5-325MG 1 EACH TAB PO PRN (11:29)
[2023-04-16] MEDS: FUROSEMIDE 10 MG/ML 4 ML VIAL IV SCH ×2 (12:26→18:27)
[2023-04-16] MEDS: FOLIC ACID 1 MG TAB PO SCH (12:47)
[2023-04-16 13:07] LABS: Glucose,Whole Blood 155 mg/dL (70-110)
[2023-04-16] MEDS: HYDROcodone/APAP 10-325MG 1 EACH TAB PO PRN (17:06)
[2023-04-16 17:44] LABS: Glucose,Whole Blood 116 mg/dL (70-110)
[2023-04-16 20:13] LABS: Glucose,Whole Blood 162 mg/dL (70-110)
[2023-04-16] MEDS: traZODone HCL 50 MG TAB PO SCH (20:40)
[2023-04-16] MEDS: SENNOSIDES 8.6 MG TAB PO SCH (20:40)
--- NOTE | 2023-04-16 22:26 | PN ---
PROGRESS NOTE DATE OF SERVICE: 04/16/2023 SUBJECTIVE: This is a 73-year-old woman who was admitted with a combination of COPD and CHF acute exacerbation, closely monitored. At this time, the patient is slightly feeling better. The patient also had acute on chronic pain. Also, multiple consultants are following the patient closely. The patient is on IV Lasix. PAST MEDICAL HISTORY: Reviewed. REVIEW OF SYSTEMS: 14-point review is negative. CURRENT MEDICATIONS: Reviewed and include IV Lasix, dose and rest of medications noted. PHYSICAL EXAMINATION: VITAL SIGNS: Pulse 88, blood pressure 141/70, respirations 16. CHEST: A few scattered rhonchi and crackles. ABDOMEN: Soft. NERVOUS SYSTEM: No focal deficits. LABORATORY DATA: Hemoglobin 8.7. Rest of the labs are noted. ASSESSMENT: 1. Shortness of breath, possibly combination of chronic obstructive pulmonary disease acute exacerbation, congestive heart failure acute exacerbation, acute on chronic diastolic dysfunction. 2. Chest pain, rule out unstable angina. 3. Hypokalemia. 4. History of recent methicillin-resistant Staphylococcus aureus. 5. Urinary tract infection. 6. Atrial fibrillation. 7. Diabetes mellitus, type 2. 8. Severe pain. 9. Hypertension. 10.Multiple complex medical issues. RECOMMENDATIONS: Recommend to continue current management. Continue IV Lasix. Monitor fluid and electrolyte balance closely. Fluid restriction to 1200 mL per 24 hours. Repeat labs. Repeat chest x-ray. Continue the bronchodilators. Pain management. Prognosis is guarded because of multiple complex medical issues. Further recommendations to follow. MMODL / MORISN: [id number] /
[2023-04-17] MEDS: FUROSEMIDE 10 MG/ML 4 ML VIAL IV SCH ×3 (00:02→17:05)
[2023-04-17] MEDS: HYDROcodone/APAP 10-325MG 1 EACH TAB PO PRN (02:36)
[2023-04-17] MEDS: DAPAGLIFLOZIN PROPANEDIOL 5 MG TABLET PO SCH (05:44)
[2023-04-17] MEDS: azaTHIOprine 50 MG TAB PO SCH ×3 (05:44→21:22)
[2023-04-17] MEDS: ACETAMINOPHEN TAB 325 MG TAB PO PRN ×3 (05:56→23:59)
[2023-04-17 07:12] LABS: Glucose,Whole Blood 139 mg/dL (70-110)
[2023-04-17] MEDS: SYMBICORT 160-4.5 MCG INHALER INHALATION SCH ×2 (08:08→18:01)
[2023-04-17] MEDS: IPRATROPIUM-ALBUTEROL 3 ML NEB INHALATION SCH ×4 (08:08→18:01)
[2023-04-17] MEDS: INSULIN ASPART (NovoLOG) 100 UNIT/ML VIAL SQ SCH ×4 (09:04→21:20)
[2023-04-17] MEDS: APIXABAN 5 MG TAB PO SCH ×2 (09:40→18:11)
[2023-04-17] MEDS: POTASSIUM CHLORIDE ER 20 MEQ TAB.ER PO SCH ×2 (09:40→21:22)
[2023-04-17] MEDS: ESCITALOPRAM 10 MG TAB PO SCH (09:40)
[2023-04-17] MEDS: SPIRONOLACTONE 25 MG TAB PO SCH (09:41)
[2023-04-17] MEDS: METOPROLOL TARTRATE 50 MG TAB PO SCH ×2 (09:41→18:11)
[2023-04-17] MEDS: ISOSORBIDE MONONITRATE ER 30 MG TAB.ER.24H PO SCH (09:41)
[2023-04-17] MEDS: PANTOPRAZOLE 40 MG TABLET PO SCH (09:41)
[2023-04-17] MEDS: LACTULOSE 20 GM/30 ML CUP PO SCH ×2 (09:42→18:12)
[2023-04-17] MEDS: CYANOCOBALAMIN 500 MCG TAB PO SCH (09:42)
[2023-04-17] MEDS: FERROUS SULFATE 325 MG TAB PO SCH (09:42)
[2023-04-17] MEDS: DOCUSATE 100 MG CAP PO SCH ×2 (09:42→18:13)
[2023-04-17] MEDS: CHOLECALCIFEROL 25 MCG (1000 IU) TABLET PO SCH (09:42)
[2023-04-17] MEDS: OXYCODONE MYRISTATE 9 MG PO SCH ×2 (09:43→21:20)
[2023-04-17] MEDS ORDERED: ONDANSETRON 4 MG/2 ML VIAL IVP PRN (09:54)
[2023-04-17] MEDS ORDERED: VANCOMYCIN TROUGH DUE 1 EACH MISC MISCELLANE ONE (10:00)
[2023-04-17] MEDS: PANTOPRAZOLE 40 MG/10 ML VIAL IVP SCH ×2 (10:03→21:21)
--- NOTE | 2023-04-17 10:59 | XR ---
EXAMINATION TYPE: XR chest 1V portable DATE OF EXAM: 04/17/2023 COMPARISON: 04/14/2023 INDICATION: CHF TECHNIQUE: Single frontal view of the chest is obtained. FINDINGS: The heart size is enlarged. The pulmonary vasculature is normal. Some minimal infiltrate may be the right lung base. This could be summation density with rib ends. Di fferential could include atelectasis and pneumonia and atypical pulmonary edema. IMPRESSIONS: 1. Cardiomegaly. 2. Minimal infiltrate right lung base. Follow-up can be performed
[2023-04-17 12:03] LABS: Glucose,Whole Blood 142 mg/dL (70-110)
[2023-04-17] MEDS: FOLIC ACID 1 MG TAB PO SCH (13:28)
[2023-04-17 13:51] LABS: Anisocytosis Slight; Basophils % (A) 1 %; Eosinophils # (A) 0.3 k/uL (0-0.7); Eosinophils % (A) 6 %; HCT 32.8 % (34.0-46.0); HGB 10.1 gm/dL (11.4-16.0); Hypochromasia Marked; Lymphocytes # (A) 1.2 k/uL (1.0-4.8); Lymphocytes % (A) 21 %; MCH 29.9 pg (25.0-35.0); MCHC 30.9 g/dL (31.0-37.0); MCV 96.7 fL (80.0-100.0); Macrocytosis Slight; Mean Platelet Volume 7.2; Monocytes # (A) 0.3 k/uL (0-1.0); Monocytes % (A) 5 %; Neutrophils # (A) 3.6 k/uL (1.3-7.7); Neutrophils % (A) 66 %; Platelet Count 393 k/uL (150-450); RBC 3.39 m/uL (3.80-5.40); RDW 18.9 % (11.5-15.5); WBC 5.5 k/uL (3.8-10.6)
[2023-04-17 14:03] LABS: African American GFR (CKD) >90 (>60 ml/min/1.73 sqM); Non-African American GFR(CKD) 80 (>60 ml/min/1.73 sqM)
[2023-04-17 14:04] LABS: African American GFR (CKD) >90 (>60 ml/min/1.73 sqM); Anion Gap 9 mmol/L; Blood Urea Nitrogen 7 mg/dL (7-17); Carbon Dioxide 34 mmol/L (22-30); Chloride 99 mmol/L (98-107); Glucose 131 mg/dL (74-99); Non-African American GFR(CKD) 80 (>60 ml/min/1.73 sqM); Potassium 3.7 mmol/L (3.5-5.1); Sodium 142 mmol/L (137-145)
[2023-04-17] MEDS: VANCOMYCIN 1,250 MG in SODIUM CHLORIDE 0.9% 250 ML IVPB SCH (14:41)
--- NOTE | 2023-04-17 15:40 | P.PN ---
Subjective Progress Note Date: 04/17/23 Principal diagnosis: Heart failure The patient is a 73-year-old female patient was no [place] from before with a past medical history significant for hypertension and hypertensive heart disease and dyslipidemia and permanent atrial fibrillation who was brought to the hospital from [facility] for further evaluation of increasing in the shortness of breath over the last several days. The patient has been experiencing increasing in the shortness of breath associated with bilateral lower extremity edema and she also developed some chest discomfort. She gained weight. The she was on diuretics including Lasix and Aldactone at the [facility]. No fever and no chills and no cough or sputum production. No dizziness or lightheadedness or any feeling of heart racing or fluttering or any presyncope or syncope. She underwent further workup here including an EKG and that showed atrial fibrillation with diffuse nonspecific ST and T wave abnormalities and also she underwent one set of troponin came in to be unremarkable he underwent to obtain 2 more sets of troponin. The chest x-ray showed findings consistent with heart failure. The patient was started on Lasix IV and she was admitted to the hospital and she is feeling already better today. She underwent a heart catheterization in September 2022 and that showed elevated left-sided filling pressure with mild nonobstructive coronary artery disease and she underwent an echocardiogram in 2023 showing normal left ventricular systolic function with evidence of hypertensive heart disease with LVH and moderate mitral regurgitation and moderate to severe pulmonary hypertension. The patient is on oral anticoagulation and that continues [place] she is also on beta bl ocker with metoprolol. The atrial fibrillation appeared to be under good control. The examination is remarkable for diminished breathing sounds bilaterally and mild bilateral lower extremity edema and irregular rhythm with distant heart sounds. April 172023 The patient was seen and evaluated this morning. She is feeling somewhat better. But she still have at least moderate bilateral lower extremity edema. The shortness of breath is better. The creatinine remains stable. I would sug gest continue the current medical regimen including the current dose of Lasix IV for additional 24 hours and continue monitor the kidney function and electrolytes everardo is on oral anticoagulation for the atrial fibrillation. The examination is remarkable for at least moderate bilateral lower extremity is pitting edema Assessment Heart failure exacerbation related to diastole dysfunction with evidence of right and left heart failure Atrial fibrillation with controlled heart rate. She is on anticoagulation Hypertensive heart disease Mild nonobstructive coronary artery disease Chest discomfort Multiple comorbid conditions Plan Continue the current dose of Lasix IV Continue monitor the kidney function and electrolytes Obtain serial cardiac enzymes Continue anticoagulation Follow-up with the patient Objective - Vital Signs Vital signs: Vital Signs Temp 98.2 F 04/17/23 12:43 Pulse 72 04/17/23 15:31 Resp 16 04/17/23 14:05 BP 114/75 04/17/23 12:43 Pulse Ox 98 04/17/23 12:43 FiO2 Intake & Output 04/16/23 04/17/23 04/17/23 18:59 06:59 18:59 Intake Total 360 830 160 Balance 360 830 160 Weight 74.9 kg Intake: Oral 360 830 160 Other: Voiding Method Toilet Toilet Toilet Diaper Diaper Diaper # Voids 4 3 3 - Labs CBC & Chem 7: 04/17/23 13:17 04/17/23 13:17 Labs: Abnormal Lab Results - Last 24 Hours (Table) 04/16/23 04/16/23 04/17/23 Range/Units 17:42 20:11 07:11 RBC (3.80-5.40) m/uL Hgb (11.4-16.0) gm/dL Hct (34.0-46.0) % MCHC (31.0-37.0) g/dL RDW (11.5-15.5) % Carbon Dioxide (22-30) mmol/L Glucose (74-99) mg/dL POC Glucose (mg/dL) 116 H 162 H 139 H (70-110) mg/dL 04/17/23 04/17/23 04/17/23 Range/Units 12:02 13:17 13:17 RBC 3.39 L (3.80-5.40) m/uL Hgb 10.1 L (11.4-16.0) gm/dL Hct 32.8 L (34.0-46.0) % MCHC 30.9 L (31.0-37.0) g/dL RDW 18.9 H (11.5-15.5) % Carbon Dioxide 34 H (22-30) mmol/L Glucose 131 H (74-99) mg/dL POC Glucose (mg/dL) 142 H (70-110) mg/dL
[2023-04-17 16:51] LABS: Glucose,Whole Blood 132 mg/dL (70-110)
[2023-04-17 20:17] LABS: Glucose,Whole Blood 170 mg/dL (70-110)
[2023-04-17] MEDS: HYDROmorphone 0.5 MG/0.5 ML SYRINGE IVP PRN (21:21)
[2023-04-17] MEDS: traZODone HCL 50 MG TAB PO SCH (21:22)
[2023-04-17] MEDS: SENNOSIDES 8.6 MG TAB PO SCH (21:23)
--- NOTE | 2023-04-17 22:13 | P.PN ---
Subjective Progress Note Date: 04/16/23 Principal diagnosis: Reason for follow-up is MRSA urinary tract infection Patient is a 73-year-old -[place] female with a past medical history significant for diabetes mellitus hypertension atrial fibrillation spinal stenosis recently admitted at this facility and did have MRSA urinary tract infection patient presented with significant hematuria, blood culture negative organism was resistant to Bactrim could not use Zyvox because of Lexapro she got a PICC line and was getting vancomycin readmitted within 24 hours with chest pain and shortness of breath. On today's evaluation that is 04/16/2023 patient remains to be afebrile, the patient is breathing comfortably on room air without need for supplemental oxygen did have a pulmonary chest pain no cough or sputum reduction no nausea vomiting no abdominal pain or diarrhea. Patient did have white count of 6.2 creatinine 0.65 Objective - Vital Signs Vital signs: Vital Signs Temp 98.3 F 04/16/23 07:54 Pulse 100 04/16/23 12:09 Resp 18 04/16/23 07:54 BP 170/90 04/16/23 07:54 Pulse Ox 93 L 04/16/23 07:54 FiO2 Intake & Output 04/15/23 04/16/23 04/16/23 18:59 06:59 18:59 Intake Total 850 960 Output Total 950 Balance -100 960 Weight 73.26 kg Intake: Intake, IV Titration 250 250 Amount Vancomycin 1,250 mg In 250 250 Sodium Chloride 0.9% 250 ml @ 125 mls/hr IVPB Q16H [facility] Rx#:[id number] Oral 600 710 Output: Urine 950 Other: Voiding Method Diaper Toilet Diaper # Voids 1 1 1 # Bowel Movements 1 - Exam GENERAL DESCRIPTION: An elderly female lying in bed in no distress RESPIRATORY SYSTEM: Unlabored breathing , decreased breath sounds at bases HEART: S1 S2 regular rate and rhythm , ABDOMEN: Soft , no tenderness EXTREMITIES: No edema feet - Labs CBC & Chem 7: 04/16/23 08:45 04/16/23 08:45 Labs: Abnormal Lab Results - Last 24 Hours (Table) 04/15/23 04/15/23 04/16/23 Range/Units 17:03 20:33 07:55 RBC (3.80-5.40) m/uL Hgb (11.4-16.0) gm/dL Hct (34.0-46.0) % RDW (11.5-15.5) % Carbon Dioxide (22-30) mmol/L BUN (7-17) mg/dL Glucose (74-99) mg/dL POC Glucose (mg/dL) 140 H 159 H 114 H (70-110) mg/dL 04/16/23 04/16/23 Range/Units 08:45 08:45 RBC 2.84 L (3.80-5.40) m/uL Hgb 8.7 L (11.4-16.0) gm/dL Hct 27.1 L (34.0-46.0) % RDW 19.0 H (11.5-15.5) % Carbon Dioxide 34 H (22-30) mmol/L BUN 6 L (7-17) mg/dL Glucose 100 H (74-99) mg/dL POC Glucose (mg/dL) (70-110) mg/dL Assessment and Plan (1) MRSA (methicillin resistant staph aureus) culture positive Current Visit: No Status: Acute Code(s): Z22.322 - CARRIER OR SUSPECTED CARRIER OF METHICILLIN RESIS STAPH SNOMED Code(s): 178211176 (2) UTI (urinary tract infection) Current Visit: No Status: Acute Code(s): N39.0 - URINARY TRACT INFECTION, SITE NOT SPECIFIED SNOMED Code(s): 11871694 Plan: 1patient with recent admission to the hospital with a complicated UTI urine culture positive for MRSA blood cultures were negative did have significant hematuria radiology recommended workup as an outpatient patient now presenting back to the hospital with chest pain and shortness of breath and currently being managed by cardiology 2-w patient to continue vancomycin pharmacy to dose target of 15 while watching her kidney function closely Dictation was produced using [employer] software. please excuse any grammatical, word or spelling errors. Time with Patient: Less than 30
[2023-04-18] MEDS: FUROSEMIDE 10 MG/ML 4 ML VIAL IV SCH ×3 (00:05→11:53)
[2023-04-18] MEDS: HYDROcodone/APAP 10-325MG 1 EACH TAB PO PRN (01:48)
[2023-04-18] MEDS: VANCOMYCIN 1,250 MG in SODIUM CHLORIDE 0.9% 250 ML IVPB SCH ×2 (02:20→18:22)
--- NOTE | 2023-04-18 05:26 | PN ---
PROGRESS NOTE DATE OF SERVICE: 04/17/2023 SUBJECTIVE: This is a 73-year-old woman, who was admitted with shortness of breath, possibly multifactorial, COPD, CHF acute exacerbation, complaining of nausea, some vomiting also. At this time, I would recommend IV Protonix and Zofran p.r.n. Continue the current medications. Repeat chest x-ray to rule out the possibility of pneumonia. The patient is on empiric antibiotics. PAST MEDICAL HISTORY: Reviewed. REVIEW OF SYSTEMS: A 14-point review is negative except as mentioned earlier. CURRENT MEDICATIONS: Reviewed include Rocephin. Dose and rest of medications reviewed. PHYSICAL EXAMINATION: VITAL SIGNS: Pulse is 69, blood pressure 150/70, respirations 15. HEENT: Conjunctivae normal. CARDIOVASCULAR: S1, S2. RESPIRATIONS: A few scattered rhonchi. ABDOMEN: Soft. NERVOUS SYSTEM: Nonfocal. LABORATORY DATA: Reviewed. WBC 18.7. Sodium 135. ASSESSMENT: 1. Shortness of breath, possibly multifactorial, chronic obstructive pulmonary disease acute exacerbation, congestive heart failure acute exacerbation with acute on chronic diastolic dysfunction. 2. Acute tracheobronchitis, rule out pneumonia. 3. Chest pain, rule out unstable angina. 4. Hypokalemia. 5. Acute gastritis. 6. History of recent Methicillin-resistant Staphylococcus aureus. 7. Urinary tract infection. 8. Atrial fibrillation. 9. Diabetes mellitus, type 2. 10.Severe pain. 11.Hypertension. 12.Multiple complex medical issues. RECOMMENDATIONS AND DISCUSSION: Recommended to continue the current medications, continue symptomatic treatment as mentioned earlier. Add Zofran to the current regimen. Change Protonix to 40 b.i.d. Repeat chest x-ray to evaluate for evolution or improvement. Otherwise, continue to monitor. White count is still elevated. Cultures are negative. Guarded prognosis. Further recommendations to follow. MMODL / IJN: [id number] /
[2023-04-18] MEDS: DAPAGLIFLOZIN PROPANEDIOL 5 MG TABLET PO SCH (06:03)
[2023-04-18] MEDS: azaTHIOprine 50 MG TAB PO SCH ×3 (06:03→21:00)
[2023-04-18 07:08] LABS: African American GFR (CKD) 77 (>60 ml/min/1.73 sqM); Anion Gap 4 mmol/L; Blood Urea Nitrogen 8 mg/dL (7-17); Calcium 9.7 mg/dL (8.4-10.2); Carbon Dioxide 38 mmol/L (22-30); Chloride 100 mmol/L (98-107); Glucose 110 mg/dL (74-99); Non-African American GFR(CKD) 67 (>60 ml/min/1.73 sqM); Sodium 142 mmol/L (137-145)
[2023-04-18 07:22] LABS: Glucose,Whole Blood 115 mg/dL (70-110)
[2023-04-18] MEDS: INSULIN ASPART (NovoLOG) 100 UNIT/ML VIAL SQ SCH ×4 (07:33→20:56)
[2023-04-18] MEDS: SYMBICORT 160-4.5 MCG INHALER INHALATION SCH ×2 (07:51→20:11)
[2023-04-18] MEDS: IPRATROPIUM-ALBUTEROL 3 ML NEB INHALATION SCH ×4 (07:51→20:11)
[2023-04-18 08:00] LABS: Potassium 3.8 mmol/L (3.5-5.1)
[2023-04-18] MEDS ORDERED: metHOTREXate sodium 2.5 MG TAB PO SCH (09:00)
[2023-04-18] MEDS: DOCUSATE 100 MG CAP PO SCH ×2 (10:31→17:09)
[2023-04-18] MEDS: ISOSORBIDE MONONITRATE ER 30 MG TAB.ER.24H PO SCH (10:31)
[2023-04-18] MEDS: FOLIC ACID 1 MG TAB PO SCH (10:32)
[2023-04-18] MEDS: CHOLECALCIFEROL 25 MCG (1000 IU) TABLET PO SCH (10:32)
[2023-04-18] MEDS: PANTOPRAZOLE 40 MG/10 ML VIAL IVP SCH ×2 (10:32→20:56)
[2023-04-18] MEDS: FERROUS SULFATE 325 MG TAB PO SCH (10:32)
[2023-04-18] MEDS: SPIRONOLACTONE 25 MG TAB PO SCH (10:32)
[2023-04-18] MEDS: METOPROLOL TARTRATE 50 MG TAB PO SCH ×2 (10:32→17:09)
[2023-04-18] MEDS: APIXABAN 5 MG TAB PO SCH ×2 (10:32→17:09)
[2023-04-18] MEDS: CYANOCOBALAMIN 500 MCG TAB PO SCH (10:32)
[2023-04-18] MEDS: POTASSIUM CHLORIDE ER 20 MEQ TAB.ER PO SCH ×2 (10:33→20:57)
[2023-04-18] MEDS: ESCITALOPRAM 10 MG TAB PO SCH (10:33)
[2023-04-18] MEDS: LACTULOSE 20 GM/30 ML CUP PO SCH ×2 (10:33→17:09)
[2023-04-18] MEDS: HYDROmorphone 0.5 MG/0.5 ML SYRINGE IVP PRN ×2 (10:41→20:57)
[2023-04-18] MEDS: OXYCODONE MYRISTATE 9 MG PO SCH ×2 (10:49→20:41)
[2023-04-18 11:05] LABS: Basophils # (A) 0.07 X 10*3/uL (0.00-0.10); Basophils % (A) 1.2 %; Eosinophils % (A) 7.1 %; HCT 29.3 % (37.2-46.3); HGB 8.8 g/dL (12.0-15.0); Lymphocytes % (A) 30.2 %; MCH 29.3 pg (27.0-32.0); MCV 97.7 FL (80.0-97.0); Mean Platelet Volume 8.5 FL (9.5-12.2); Monocytes # (A) 0.56 X 10*3/uL (0.20-1.00); Monocytes % (A) 9.9 %; NRBC Per 100 WBC 0 X 10*3/uL (0.00-0.01); Neutrophils # (A) 2.88 X 10*3/uL (1.80-7.70); Neutrophils % (A) 51.2 %; Platelet Count 305 X 10*3/uL (140-440); RDW 18.9 % (11.5-14.5); WBC 5.63 X 10*3/uL (4.50-10.00)
[2023-04-18 11:40] LABS: Glucose,Whole Blood 129 mg/dL (70-110)
--- NOTE | 2023-04-18 12:09 | P.PN ---
Subjective HISTORY OF PRESENT ILLNESS: The patient is a 73-year-old female patient was no [place] from before with a past medical history significant for hypertension and hypertensive heart disease and dyslipidemia and permanent atrial fibrillation who was brought to the hospital from [facility] facility for further evaluation of increasing in the shortness of breath over the last several days. The patient has been experiencing increasing in the shortness of breath associated with bilateral lower extremity edema and she also developed some chest discomfort. She gained weight. The she was on diuretics including Lasix and Aldactone at the [facility] facility. No fever and no chills and no cough or sputum production. No dizziness or lightheadedness or any feeling of heart racing or fluttering or any presyncope or syncope. She underwent further workup here including an EKG and that showed atrial fibrillation with diffuse nonspecific ST and T wave abnormalities and also she underwent one set of troponin came in to be unremarkable he underwent to obtain 2 more sets of troponin. The chest x-ray showed findings consistent with heart failure. The patient was started on Lasix IV and she was admitted to the hospital and she is feeling already better today. She underwent a heart catheterization in September 2022 and that showed elevated left-sided filling pressure with mild nonobstructive coronary artery disease and she underwent an echocardiogram in 2023 showing normal left ventricular systolic function with evidence of hypertensive heart disease with LVH and moderate mitral regurgitation and moderate to severe pulmonary hypertension. The patient is on oral anticoagulation and that continues [place] she is also on beta sid with metoprolol. The atrial fibrillation appeared to be under good control. The examination is remarkable for diminished breathing sounds bilat erally and mild bilateral lower extremity edema and irregular rhythm with distant heart sounds. 04/18/2023 Patient examined this morning at the bedside. Patient denies chest pain or pressure. She reports improvement in her shortness of breath. She currently denies shortness of breath sitting on the side of the bed but states she is unable to lay flat in bed without becoming short of breath. She remains on IV diuretics. Vital signs are stable. Patient remains in atrial fibrillation with controlled ventricular rate PHYSICAL EXAM: VITAL SIGNS: Reviewed. GENERAL: Well-developed in no acute distress. NECK: Supple. No JVD or thyromegaly LUNGS: Respirations even and unlabored. Lungs diminished to auscultation bilaterally. HEART: Irregular rate and rhythm. S1 and S2 heard. EXTREMITIES: Normal range of motion. No clubbing or cyanosis. Peripheral pulses intact. Trace lower extremity edema ASSESSMENT: Shortness of breath Acute on chronic heart failure with preserved ejection fraction, 50-55% Permanent atrial fibrillation with controlled ventricular rate Mild nonobstructive coronary artery disease Hypertension Hyperlipidemia Moderate to severe pulmonary hypertension PLAN: Continue current cardiac medications Decrease Lasix to 40 mg IV daily Daily weights, accurate I&O, and monitoring of kidney function Further recommendations pending patient's course Nurse practitioner note has been reviewed by physician. Signing provider agrees with the documented findings, assessment, and plan of care. Objective - Vital Signs Vital signs: Vital Signs Temp 97.7 F 04/18/23 07:06 Pulse 69 04/18/23 07:06 Resp 16 04/18/23 07:06 BP 147/69 04/18/23 07:06 Pulse Ox 100 04/18/23 07:06 FiO2 Intake & Output 04/17/23 04/18/23 04/18/23 18:59 06:59 18:59 Intake Total 160 Output Total 850 Balance 160 -850 Weight 73.2 kg Intake: Oral 160 Output: Urine 850 Other: Voiding Method Toilet Toilet Toilet Diaper Diaper Diaper External Catheter # Voids 3 3 - Labs CBC & Chem 7: 04/18/23 06:09 04/18/23 06:09 Labs: Abnormal Lab Results - Last 24 Hours (Table) 04/17/23 04/17/23 04/17/23 Range/Units 13:17 13:17 16:50 RBC 3.39 L (3.80-5.40) m/uL Hgb 10.1 L (11.4-16.0) gm/dL Hct 32.8 L (34.0-46.0) % MCV (80.0-97.0) FL MCHC 30.9 L (31.0-37.0) g/dL RDW 18.9 H (11.5-15.5) % MPV (9.5-12.2) FL Eosinophils # (0.04-0.35) X 10*3/uL D-Dimer (<0.60) mg/L FEU Carbon Dioxide 34 H (22-30) mmol/L Glucose 131 H (74-99) mg/dL POC Glucose (mg/dL) 132 H (70-110) mg/dL 04/17/23 04/18/23 04/18/23 Range/Units 20:16 06:09 06:09 RBC 3.00 L (3.80-5.40) m/uL Hgb 8.8 L (11.4-16.0) gm/dL Hct 29.3 L (34.0-46.0) % MCV 97.7 H (80.0-97.0) FL MCHC 30.0 L (31.0-37.0) g/dL RDW 18.9 H (11.5-15.5) % MPV 8.5 L (9.5-12.2) FL Eosinophils # 0.40 H (0.04-0.35) X 10*3/uL D-Dimer (<0.60) mg/L FEU Carbon Dioxide 38 H (22-30) mmol/L Glucose 110 H (74-99) mg/dL POC Glucose (mg/dL) 170 H (70-110) mg/dL 04/18/23 04/18/23 04/18/23 Range/Units 07:20 08:57 11:39 RBC (3.80-5.40) m/uL Hgb (11.4-16.0) gm/dL Hct (34.0-46.0) % MCV (80.0-97.0) FL MCHC (31.0-37.0) g/dL RDW (11.5-15.5) % MPV (9.5-12.2) FL Eosinophils # (0.04-0.35) X 10*3/uL D-Dimer 1.55 H (<0.60) mg/L FEU Carbon Dioxide (22-30) mmol/L Glucose (74-99) mg/dL POC Glucose (mg/dL) 115 H 129 H (70-110) mg/dL
--- NOTE | 2023-04-18 15:09 | CT ---
EXAMINATION TYPE: CT angio chest CT DLP: 211.4 mGycm, Automated exposure control for dose reduction was used. DATE OF EXAM: 04/18/2023 2:39 PM COMPARISON: 04/17/2023. CLINICAL INDICATION:Female, 73 years old with history of Elevated d-dimer, shortness of breath, rule out PE; Elevated d-dimer, shortness of breath TECHNIQUE/CONTRAST: CTA scan of the thorax is performed with IV Contrast, patient injected with 100 mL of Isovue 370, MIP images are created and reviewed these are created on a separate workstation. FINDINGS: Pulmonary Artery: There is no evidence for a filling defect within the pulmonary vasculature to sugge st acute pulmonary embolism. The pulmonary artery is of normal size. Lungs/Pleura: Mild emphysema changes throughout the lungs. No evidence of focal consolidation, pleura l effusion or pneumothorax. Airway: Large airways are patent. Heart: There is mildly enlarged for size. Mild coronary artery atherosclerosis. Vasculature: No evidence for intramural hematoma on noncontrast imaging. No evidence of intimal flap to suggest dissection. No aneurysm identified. Scattered atherosclerotic disease. Right PICC terminat ing near the superior vena cava. Mediastinum: No gross evidence of adenopathy. Musculoskeletal: No acute osseous abnormalities, neuro stimulator leads project terminating in the th oracic spine. Soft Tissues: Unremarkable. Lower neck: No significant findings. Upper Abdomen: No significant findings. IMPRESSION: No evidence for aortic dissection, aneurysm or pulmonary embolus. Cardiomegaly with mild coronary artery atherosclerosis. Follow up recommendations for incidental pulmonary nodules, if there are any, are per [employer] or [employer].
[2023-04-18 17:02] LABS: Glucose,Whole Blood 124 mg/dL (70-110)
[2023-04-18] MEDS: HYDROcodone/APAP 5-325MG 1 EACH TAB PO PRN (18:27)
[2023-04-18 19:22] LABS: Glucose,Whole Blood 217 mg/dL (70-110)
[2023-04-18] MEDS: traZODone HCL 50 MG TAB PO SCH (20:57)
[2023-04-18] MEDS: SENNOSIDES 8.6 MG TAB PO SCH (20:57)
[2023-04-19] MEDS: HYDROcodone/APAP 10-325MG 1 EACH TAB PO PRN ×2 (01:07→09:29)
[2023-04-19] MEDS: azaTHIOprine 50 MG TAB PO SCH ×3 (06:09→23:35)
[2023-04-19] MEDS: DAPAGLIFLOZIN PROPANEDIOL 5 MG TABLET PO SCH (06:10)
[2023-04-19 07:40] LABS: Glucose,Whole Blood 134 mg/dL (70-110)
[2023-04-19] MEDS: INSULIN ASPART (NovoLOG) 100 UNIT/ML VIAL SQ SCH ×4 (07:45→21:08)
[2023-04-19] MEDS: IPRATROPIUM-ALBUTEROL 3 ML NEB INHALATION SCH ×4 (07:50→18:30)
[2023-04-19] MEDS: SYMBICORT 160-4.5 MCG INHALER INHALATION SCH ×2 (07:50→18:30)
[2023-04-19] MEDS: PANTOPRAZOLE 40 MG/10 ML VIAL IVP SCH ×2 (09:29→21:08)
[2023-04-19] MEDS: ISOSORBIDE MONONITRATE ER 30 MG TAB.ER.24H PO SCH (09:29)
[2023-04-19] MEDS: METOPROLOL TARTRATE 50 MG TAB PO SCH ×2 (09:29→16:52)
[2023-04-19] MEDS: LACTULOSE 20 GM/30 ML CUP PO SCH ×3 (09:29→16:55)
[2023-04-19] MEDS: CYANOCOBALAMIN 500 MCG TAB PO SCH (09:29)
[2023-04-19] MEDS: SPIRONOLACTONE 25 MG TAB PO SCH (09:29)
[2023-04-19] MEDS: FERROUS SULFATE 325 MG TAB PO SCH (09:29)
[2023-04-19] MEDS: DOCUSATE 100 MG CAP PO SCH ×2 (09:30→16:52)
[2023-04-19] MEDS: APIXABAN 5 MG TAB PO SCH ×2 (09:30→16:52)
[2023-04-19] MEDS: ESCITALOPRAM 10 MG TAB PO SCH (09:30)
[2023-04-19] MEDS: POTASSIUM CHLORIDE ER 20 MEQ TAB.ER PO SCH ×2 (09:30→21:08)
[2023-04-19] MEDS: CHOLECALCIFEROL 25 MCG (1000 IU) TABLET PO SCH (09:30)
[2023-04-19] MEDS: OXYCODONE MYRISTATE 9 MG PO SCH ×2 (09:30→21:55)
[2023-04-19] MEDS: FUROSEMIDE 10 MG/ML 4 ML VIAL IV SCH (09:30)
--- NOTE | 2023-04-19 10:12 | P.PN ---
Subjective Progress Note Date: 04/18/23 This is a 73 year old female who was recently admitted with shortness of breath, acute COPD/CHF exacerbation also having some nausea and vomiting being closely monitored. Cardiology evaluated the patient placed on IV Lasix and diuresing has been transitioned IV Lasix once daily and will likely transition to oral in the a.m. Patient was recently hospitalized and here with a PICC line for UTI with MRSA and will continue with Vanco with infectious disease following to complete the course. Patient continues to require 4 more days of antibiotic therapy to complete the course. Will discuss further with social work and case management on discharge planning once cleared by cardiology. Review of systems: Constitutional: No reports of fatigue, fever, or chills Cardiovascular: No reports of chest pain or palpitations Respiratory: No reports of shortness of breath or cough GI: reports of occasional nausea, no reports of vomiting, no diarrhea : No reports of dysuria or retention Neurovascular: reports of generalized weakness All medications have been reviewed Active Medications PHYSICAL EXAMINATION: GENERAL: The patient is alert and oriented x4, Well developed, well nourished. HEENT: Pupils are round and equally reacting to light. EOMI. no scleral icterus. No conjunctival pallor. Normocephalic, atraumatic. No pharyngeal erythema. No thyromegaly. CARDIOVASCULAR: S1 and S2 muffled PULMONARY: diminished breath sounds bilaterally with no wheezing or rhonchi noted. ABDOMEN: soft. Nontender on exam. obese. non-distended, normoactive bowel sounds. No palpable organomegaly. MUSCULOSKELETAL: No joint swelling or deformity. EXTREMITIES: No cyanosis, clubbing, or pedal edema. NEUROLOGICAL: Gross neurological examination did not reveal any focal deficits. Diffuse weakness SKIN: No rashes. Assessment: Shortness of breath, possibly multifactorial secondary to chronic obstructive pulmonary disease acute exacerbation as well as CHF acute exacerbation with acute on chronic diastolic dysfunction Acute tracheobronchitis, ruled out pneumonia Chest pain, ACS ruled out Hypokalemia, improved history of MRSA UTI on recent admission continued on IV antibiotics with PICC line Atrial fibrillation history Diabetes mellitus, type II, insulin-dependent Chronic pain history of hypertension GI prophylaxis DVT prophylaxis Full code Plan: Recommend to continue with current medications and management with cardiology and infectious disease following. Patient does have a PICC line and received on last admission last week is continued on vancomycin with pharmacy to dose for MRSA UTI Patient being followed by cardiology and has transitioned IV Lasix to once daily recommend monitoring overnight and likely transition to oral on discharge Case management/social work following and patient reports she will be going home on discharge although patient has continued IV antibiotic therapy due for the next 4 days and will likely need to return to [facility] to complete this IV a ntibiotics PT/OT therapy to reevaluate Continue monitoring Accu-Cheks before meals and at bedtime and will continue on sliding scale Discussed with patient and nursing staff about avoiding IV pain medication and continuing with chronic medications Possible discharge planning in the next 24 hours The impression and plan of care has been dictated by Any Peguero, nurse practitioner as directed. Dr. Dmitry MD I have performed a history and examination and MDM of this patient, discussed the same with the dictator, and agree with the dictator's assessment and plan as written ,documented as a scribe. Based on total visit time, I have performed more than 50% of the visit. Any additional findings or plans will be noted. Objective - Vital Signs Vital signs: Vital Signs Temp 97.7 F 04/18/23 07:06 Pulse 78 04/18/23 12:20 Resp 16 04/18/23 07:06 BP 147/69 04/18/23 07:06 Pulse Ox 100 04/18/23 07:06 FiO2 Intake & Output 04/17/23 04/18/23 04/18/23 18:59 06:59 18:59 Intake Total 160 Output Total 850 Balance 160 -850 Weight 73.2 kg Intake: Oral 160 Output: Urine 850 Other: Voiding Method Toilet Toilet Toilet Diaper Diaper Diaper External Catheter # Voids 3 3 - Labs CBC & Chem 7: 04/18/23 06:09 04/18/23 06:09 Labs: Abnormal Lab Results - Last 24 Hours (Table) 04/17/23 04/17/23 04/17/23 Range/Units 13:17 13:17 16:50 RBC 3.39 L (3.80-5.40) m/uL Hgb 10.1 L (11.4-16.0) gm/dL Hct 32.8 L (34.0-46.0) % MCV (80.0-97.0) FL MCHC 30.9 L (31.0-37.0) g/dL RDW 18.9 H (11.5-15.5) % MPV (9.5-12.2) FL Eosinophils # (0.04-0.35) X 10*3/uL D-Dimer (<0.60) mg/L FEU Carbon Dioxide 34 H (22-30) mmol/L Glucose 131 H (74-99) mg/dL POC Glucose (mg/dL) 132 H (70-110) mg/dL 04/17/23 04/18/23 04/18/23 Range/Units 20:16 06:09 06:09 RBC 3.00 L (3.80-5.40) m/uL Hgb 8.8 L (11.4-16.0) gm/dL Hct 29.3 L (34.0-46.0) % MCV 97.7 H (80.0-97.0) FL MCHC 30.0 L (31.0-37.0) g/dL RDW 18.9 H (11.5-15.5) % MPV 8.5 L (9.5-12.2) FL Eosinophils # 0.40 H (0.04-0.35) X 10*3/uL D-Dimer (<0.60) mg/L FEU Carbon Dioxide 38 H (22-30) mmol/L Glucose 110 H (74-99) mg/dL POC Glucose (mg/dL) 170 H (70-110) mg/dL 04/18/23 04/18/23 04/18/23 Range/Units 07:20 08:57 11:39 RBC (3.80-5.40) m/uL Hgb (11.4-16.0) gm/dL Hct (34.0-46.0) % MCV (80.0-97.0) FL MCHC (31.0-37.0) g/dL RDW (11.5-15.5) % MPV (9.5-12.2) FL Eosinophils # (0.04-0.35) X 10*3/uL D-Dimer 1.55 H (<0.60) mg/L FEU Carbon Dioxide (22-30) mmol/L Glucose (74-99) mg/dL POC Glucose (mg/dL) 115 H 129 H (70-110) mg/dL
[2023-04-19 11:16] LABS: BUN/Creat Ratio 11.33 Ratio (12.00-20.00); Blood Urea Nitrogen 10.2 mg/dL (9.0-27.0); Calcium 10.6 mg/dL (8.7-10.3); Carbon Dioxide 33.5 mmol/L (21.6-31.8); Chloride 103 mmol/L (96-109); Glucose 118 mg/dL (70-110); Potassium 4.6 mmol/L (3.5-5.5); Sodium 146 mmol/L (135-145)
--- NOTE | 2023-04-19 11:16 | P.PN ---
Subjective HISTORY OF PRESENT ILLNESS: The patient is a 73-year-old female patient was no [place] from before with a past medical history significant for hypertension and hypertensive heart disease and dyslipidemia and permanent atrial fibrillation who was brought to the hospital from [facility] facility for further evaluation of increasing in the shortness of breath over the last several days. The patient has been experiencing increasing in the shortness of breath associated with bilateral lower extremity edema and she also developed some chest discomfort. She gained weight. The she was on diuretics including Lasix and Aldactone at the [facility] facility. No fever and no chills and no cough or sputum production. No dizziness or lightheadedness or any feeling of heart racing or fluttering or any presyncope or syncope. She underwent further workup here including an EKG and that showed atrial fibrillation with diffuse nonspecific ST and T wave abnormalities and also she underwent one set of troponin came in to be unremarkable he underwent to obtain 2 more sets of troponin. The chest x-ray showed findings consistent with heart failure. The patient was started on Lasix IV and she was admitted to the hospital and she is feeling already better today. She underwent a heart catheterization in September 2022 and that showed elevated left-sided filling pressure with mild nonobstructive coronary artery disease and she underwent an echocardiogram in 2023 showing normal left ventricular systolic function with evidence of hypertensive heart disease with LVH and moderate mitral regurgitation and moderate to severe pulmonary hypertension. The patient is on oral anticoagulation and that continues [place] hospital [place] she is also on beta sid with metoprolol. The atrial fibrillation appeared to be under good control. The examination is remarkable for diminished breathing sounds bilat erally and mild bilateral lower extremity edema and irregular rhythm with distant heart sounds. 04/18/2023 Patient examined this morning at the bedside. Patient denies chest pain or pressure. She reports improvement in her shortness of breath. She currently denies shortness of breath sitting on the side of the bed but states she is unable to lay flat in bed without becoming short of breath. She remains on IV diuretics. Vital signs are stable. Patient remains in atrial fibrillation with controlled ventricular rate April 19 2023 Patient examined this morning at the bedside. Patient denies chest pain or pressure. She currently denies shortness of breath. She remains on IV Lasix. Vital signs are stable. Patient is hoping to be discharged home today. She un derwent CTA of the chest yesterday which was negative for pulmonary embolism. PHYSICAL EXAM: VITAL SIGNS: Reviewed. GENERAL: Well-developed in no acute distress. NECK: Supple. No JVD or thyromegaly LUNGS: Respirations even and unlabored. Lungs diminished to auscultation bilat erally. HEART: Irregular rate and rhythm. S1 and S2 heard. EXTREMITIES: Normal range of motion. No clubbing or cyanosis. Peripheral pulses intact. Trace lower extremity edema ASSESSMENT: Shortness of breath Acute on chronic heart failure with preserved ejection fraction, 50-55% Permanent atrial fibrillation with controlled ventricular rate Mild nonobstructive coronary artery disease Hypertension Hyperlipidemia Moderate to severe pulmonary hypertension PLAN: Continue current cardiac medications Discontinue IV Lasix Begin oral Lasix 40 mg daily starting tomorrow Patient may be discharged home today from a cardiac standpoint We will sign off. Please reconsult if needed. Nurse practitioner note has been reviewed by physician. Signing provider agrees with the documented findings, assessment, and plan of care. Objective - Vital Signs Vital signs: Vital Signs Temp 98.4 F 04/19/23 07:36 Pulse 80 04/19/23 08:01 Resp 18 04/19/23 07:36 BP 141/77 04/19/23 07:36 Pulse Ox 99 04/19/23 07:36 FiO2 Intake & Output 04/18/23 04/19/23 04/19/23 18:59 06:59 18:59 Intake Total 540 Balance 540 Weight 73.9 kg Intake: Other 540 Other: Voiding Method Toilet Toilet Diaper Diaper # Voids 2 - Labs CBC & Chem 7: 04/18/23 06:09 04/18/23 06:09 Labs: Abnormal Lab Results - Last 24 Hours (Table) 04/18/23 04/18/23 04/18/23 Range/Units 11:39 17:00 19:19 POC Glucose (mg/dL) 129 H 124 H 217 H (70-110) mg/dL 04/19/23 Range/Units 07:39 POC Glucose (mg/dL) 134 H (70-110) mg/dL
[2023-04-19] MEDS: FOLIC ACID 1 MG TAB PO SCH (12:37)
[2023-04-19] MEDS: VANCOMYCIN 1,250 MG in SODIUM CHLORIDE 0.9% 250 ML IVPB SCH (12:37)
[2023-04-19 12:39] LABS: Glucose,Whole Blood 115 mg/dL (70-110)
--- NOTE | 2023-04-19 15:07 | P.PN ---
Subjective Progress Note Date: 04/17/23 Principal diagnosis: Reason for follow-up is MRSA urinary tract infection Patient is a 73-year-old -[place] female with a past medical history significant for diabetes mellitus hypertension atrial fibrillation spinal stenosis recently admitted at this facility and did have MRSA urinary tract infection patient presented with significant hematuria, blood culture negative organism was resistant to Bactrim could not use Zyvox because of Lexapro she got a PICC line and was getting vancomycin readmitted within 24 hours with chest pain and shortness of breath. On today's evaluation that is 04/17/2023, the patient remains to be afebrile, the patient is breathing comfortably on room air and the patient denies any shortness of breath, the patient denies chest pain or any cough , patient denies any nausea/vomiting abdominal pain or diarrhea Patient did have white count of 5.5, creatinine 0.76 Objective - Vital Signs Vital signs: Vital Signs Temp 98.2 F 04/17/23 12:43 Pulse 76 04/17/23 15:41 Resp 16 04/17/23 14:05 BP 114/75 04/17/23 12:43 Pulse Ox 98 04/17/23 12:43 FiO2 Intake & Output 04/17/23 04/17/23 04/18/23 06:59 18:59 06:59 Intake Total 830 160 Balance 830 160 Weight 74.9 kg Intake: Oral 830 160 Other: Voiding Method Toilet Toilet Diaper Diaper # Voids 3 3 - Exam GENERAL DESCRIPTION: An elderly female lying in bed in no distress RESPIRATORY SYSTEM: Unlabored breathing , decreased breath sounds at bases HEART: S1 S2 regular rate and rhythm , ABDOMEN: Soft , no tenderness EXTREMITIES: No edema feet - Labs CBC & Chem 7: 04/18/23 06:09 04/19/23 06:35 Labs: Abnormal Lab Results - Last 24 Hours (Table) 04/17/23 04/17/23 04/17/23 Range/Units 07:11 12:02 13:17 RBC 3.39 L (3.80-5.40) m/uL Hgb 10.1 L (11.4-16.0) gm/dL Hct 32.8 L (34.0-46.0) % MCHC 30.9 L (31.0-37.0) g/dL RDW 18.9 H (11.5-15.5) % Carbon Dioxide (22-30) mmol/L Glucose (74-99) mg/dL POC Glucose (mg/dL) 139 H 142 H (70-110) mg/dL 04/17/23 04/17/23 04/17/23 Range/Units 13:17 16:50 20:16 RBC (3.80-5.40) m/uL Hgb (11.4-16.0) gm/dL Hct (34.0-46.0) % MCHC (31.0-37.0) g/dL RDW (11.5-15.5) % Carbon Dioxide 34 H (22-30) mmol/L Glucose 131 H (74-99) mg/dL POC Glucose (mg/dL) 132 H 170 H (70-110) mg/dL Assessment and Plan (1) MRSA (methicillin resistant staph aureus) culture positive Current Visit: No Status: Acute Code(s): Z22.322 - CARRIER OR SUSPECTED CARRIER OF METHICILLIN RESIS STAPH SNOMED Code(s): 981938866 (2) UTI (urinary tract infection) Current Visit: No Status: Acute Code(s): N39.0 - URINARY TRACT INFECTION, SITE NOT SPECIFIED SNOMED Code(s): 04421228 Plan: 1patient with recent admission to the hospital with a complicated UTI urine culture positive for MRSA blood cultures were negative did have significant hematuria radiology recommended workup as an outpatient patient now presenting back to the hospital with chest pain and shortness of breath and currently being managed by cardiology 2-patient currently covered with vancomycin pharmacy to dose we will watch her kidney function closely Dictation was produced using [employer] dictation software. please excuse any grammatical, word or spelling errors. Time with Patient: Less than 30
--- NOTE | 2023-04-19 15:07 | P.PN ---
Subjective Progress Note Date: 04/18/23 Principal diagnosis: Reason for follow-up is MRSA urinary tract infection Patient is a 73-year-old -[place] female with a past medical history significant for diabetes mellitus hypertension atrial fibrillation spinal stenosis recently admitted at this facility and did have MRSA urinary tract infection patient presented with significant hematuria, blood culture negative organism was resistant to Bactrim could not use Zyvox because of Lexapro she got a PICC line and was getting vancomycin readmitted within 24 hours with chest pain and shortness of breath. On today's evaluation that is 04/18/2023, the patient continues to be afebrile patient is breathing comfortably on room air without need for supplemental oxygen the patient denies chest pain did have occasional cough no sputum production patient denies abdominal pain no nausea no vomiting and no diarrhea has been reported Patient did have white count of 5.63, creatinine 0.88 Objective - Vital Signs Vital signs: Vital Signs Temp 97.7 F 04/18/23 07:06 Pulse 78 04/18/23 12:20 Resp 16 04/18/23 07:06 BP 147/69 04/18/23 07:06 Pulse Ox 100 04/18/23 07:06 FiO2 Intake & Output 04/17/23 04/18/23 04/18/23 18:59 06:59 18:59 Intake Total 160 540 Output Total 850 Balance 160 -850 540 Weight 73.2 kg Intake: Oral 160 Other 540 Output: Urine 850 Other: Voiding Method Toilet Toilet Toilet Diaper Diaper Diaper External Catheter # Voids 3 3 - Exam GENERAL DESCRIPTION: An elderly female lying in bed in no distress RESPIRATORY SYSTEM: Unlabored breathing , decreased breath sounds at bases HEART: S1 S2 regular rate and rhythm , ABDOMEN: Soft , no tenderness EXTREMITIES: No edema feet - Labs CBC & Chem 7: 04/18/23 06:09 04/19/23 06:35 Labs: Abnormal Lab Results - Last 24 Hours (Table) 04/17/23 04/17/23 04/18/23 Range/Units 16:50 20:16 06:09 RBC (4.10-5.20) X 10*6/uL Hgb (12.0-15.0) g/dL Hct (37.2-46.3) % MCV (80.0-97.0) FL MCHC (32.0-37.0) g/dL RDW (11.5-14.5) % MPV (9.5-12.2) FL Eosinophils # (0.04-0.35) X 10*3/uL D-Dimer (<0.60) mg/L FEU Carbon Dioxide 38 H (22-30) mmol/L Glucose 110 H (74-99) mg/dL POC Glucose (mg/dL) 132 H 170 H (70-110) mg/dL 04/18/23 04/18/23 04/18/23 Range/Units 06:09 07:20 08:57 RBC 3.00 L (4.10-5.20) X 10*6/uL Hgb 8.8 L (12.0-15.0) g/dL Hct 29.3 L (37.2-46.3) % MCV 97.7 H (80.0-97.0) FL MCHC 30.0 L (32.0-37.0) g/dL RDW 18.9 H (11.5-14.5) % MPV 8.5 L (9.5-12.2) FL Eosinophils # 0.40 H (0.04-0.35) X 10*3/uL D-Dimer 1.55 H (<0.60) mg/L FEU Carbon Dioxide (22-30) mmol/L Glucose (74-99) mg/dL POC Glucose (mg/dL) 115 H (70-110) mg/dL 04/18/23 Range/Units 11:39 RBC (4.10-5.20) X 10*6/uL Hgb (12.0-15.0) g/dL Hct (37.2-46.3) % MCV (80.0-97.0) FL MCHC (32.0-37.0) g/dL RDW (11.5-14.5) % MPV (9.5-12.2) FL Eosinophils # (0.04-0.35) X 10*3/uL D-Dimer (<0.60) mg/L FEU Carbon Dioxide (22-30) mmol/L Glucose (74-99) mg/dL POC Glucose (mg/dL) 129 H (70-110) mg/dL Assessment and Plan (1) MRSA (methicillin resistant staph aureus) culture positive Current Visit: No Status: Acute Code(s): Z22.322 - CARRIER OR SUSPECTED CARRIER OF METHICILLIN RESIS STAPH SNOMED Code(s): 358153391 (2) UTI (urinary tract infection) Current Visit: No Status: Acute Code(s): N39.0 - URINARY TRACT INFECTION, SITE NOT SPECIFIED SNOMED Code(s): 47308282 Plan: 1patient with recent admission to the hospital with a complicated UTI urine culture positive for MRSA blood cultures were negative did have significant hematuria radiology recommended workup as an outpatient patient now presenting back to the hospital with chest pain and shortness of breath and currently being managed by cardiology 2-patient urinary symptoms has improved the patient remains to be afebrile creatinine is normal continue with the vancomycin Dictation was produced using [employer] dictation software. please excuse any grammatical, word or spelling errors. Time with Patient: Less than 30
--- NOTE | 2023-04-19 15:08 | P.PN ---
Subjective Progress Note Date: 04/19/23 Principal diagnosis: Reason for follow-up is MRSA urinary tract infection Patient is a 73-year-old -Hungarian female with a past medical history significant for diabetes mellitus hypertension atrial fibrillation spinal stenosis recently admitted at this facility and did have MRSA urinary tract infection patient presented with significant hematuria, blood culture negative organism was resistant to Bactrim could not use Zyvox because of Lexapro she got a PICC line and was getting vancomycin readmitted within 24 hours with chest pain and shortness of breath. On today's evaluation that is 04/19/2023, the patient remains to be afebrile patient is breathing comfortably on room air, the patient denies chest pain no significant cough or sputum production patient denies abdominal pain no nausea no vomiting and no diarrhea has been reported, no new symptoms Patient did have white count of 5.63 as of yesterday, creatinine 0.9 Objective - Vital Signs Vital signs: Vital Signs Temp 98.2 F 04/19/23 12:38 Pulse 80 04/19/23 12:38 Resp 18 04/19/23 12:38 BP 106/76 04/19/23 12:38 Pulse Ox 98 04/19/23 12:38 FiO2 Intake & Output 04/18/23 04/19/23 04/19/23 18:59 06:59 18:59 Intake Total 540 Balance 540 Weight 73.9 kg Intake: Other 540 Other: Voiding Method Toilet Toilet Diaper Diaper # Voids 2 - Exam GENERAL DESCRIPTION: An elderly female lying in bed in no distress RESPIRATORY SYSTEM: Unlabored breathing , decreased breath sounds at bases HEART: S1 S2 regular rate and rhythm , ABDOMEN: Soft , no tenderness EXTREMITIES: No edema feet - Labs CBC & Chem 7: 04/18/23 06:09 04/19/23 06:35 Labs: Abnormal Lab Results - Last 24 Hours (Table) 04/18/23 04/18/23 04/19/23 Range/Units 17:00 19:19 06:35 Sodium 146 H (135-145) mmol/L Carbon Dioxide 33.5 H (21.6-31.8) mmol/L BUN/Creatinine Ratio 11.33 L (12.00-20.00) Ratio Glucose 118 H (70-110) mg/dL POC Glucose (mg/dL) 124 H 217 H (70-110) mg/dL Calcium 10.6 H (8.7-10.3) mg/dL 04/19/23 04/19/23 Range/Units 07:39 12:37 Sodium (135-145) mmol/L Carbon Dioxide (21.6-31.8) mmol/L BUN/Creatinine Ratio (12.00-20.00) Ratio Glucose (70-110) mg/dL POC Glucose (mg/dL) 134 H 115 H (70-110) mg/dL Calcium (8.7-10.3) mg/dL Assessment and Plan (1) MRSA (methicillin resistant staph aureus) culture positive Current Visit: No Status: Acute Code(s): Z22.322 - CARRIER OR SUSPECTED CARRIER OF METHICILLIN RESIS STAPH SNOMED Code(s): 055979096 (2) UTI (urinary tract infection) Current Visit: No Status: Acute Code(s): N39.0 - URINARY TRACT INFECTION, SITE NOT SPECIFIED SNOMED Code(s): 81323098 Plan: 1patient with recent admission to the hospital with a complicated UTI urine culture positive for MRSA blood cultures were negative did have significant hematuria radiology recommended workup as an outpatient patient now presenting back to the hospital with chest pain and shortness of breath and currently being managed by cardiology 2-patient urinary symptoms has improved the patient remains to be afebrile creatinine is normal patient to continue with the vancomycin to finish her course of therapy, question concern answered Dictation was produced using [employer] dictation software. please excuse any grammatical, word or spelling errors. Time with Patient: Less than 30
[2023-04-19 17:42] LABS: Glucose,Whole Blood 114 mg/dL (70-110)
[2023-04-19 20:29] LABS: Glucose,Whole Blood 150 mg/dL (70-110)
[2023-04-19] MEDS: traZODone HCL 50 MG TAB PO SCH (21:08)
[2023-04-19] MEDS: SENNOSIDES 8.6 MG TAB PO SCH (21:08)
[2023-04-19] MEDS: HYDROmorphone 0.5 MG/0.5 ML SYRINGE IVP PRN (21:09)
[2023-04-20] MEDS: ACETAMINOPHEN TAB 325 MG TAB PO PRN (01:00)
[2023-04-20] MEDS ORDERED: VANCOMYCIN TROUGH DUE 1 EACH MISC MISCELLANE ONE (02:00)
[2023-04-20] MEDS: VANCOMYCIN 1,250 MG in SODIUM CHLORIDE 0.9% 250 ML IVPB SCH (03:40)
--- NOTE | 2023-04-20 05:36 | P.PN ---
Subjective Progress Note Date: 04/19/23 This is a 73 year old female who was recently admitted with shortness of breath, acute COPD/CHF exacerbation also having some nausea and vomiting being closely monitored. Cardiology evaluated the patient placed on IV Lasix and diuresing has been transitioned IV Lasix once daily and will likely transition to oral in the a.m. Patient was recently hospitalized and here with a PICC line for UTI with MRSA and will continue with Vanco with infectious disease following to complete the course. Patient continues to require 4 more days of antibiotic therapy to complete the course. Will discuss further with social work and case management on discharge planning once cleared by cardiology. 04/20/2023 Patient is seen in follow-up this morning with cardiology following maintained on IV Lasix and being transitioned oral Lasix starting tomorrow for CHF exacerbation. Patient also continues to be followed with infectious disease as patient is maintained on vancomycin as patient had previous admission with MRSA in the urine. Patient does have a PICC line in will continue IV antibiotic therapy and will be returning to [facility] to complete PE antibiotic course. Patient will require insurance authorization which was submitted pending at this time. Patient is afebrile with no reported chest pain or shortness of breath noted. Patient like to go home and manage antibiotic therapy and is agreeable to returning to [facility] to complete the course of antibiotics. Social work following and has submitted for insurance authorization. Review of systems: Constitutional: No reports of fatigue, fever, or chills Cardiovascular: No reports of chest pain or palpitations Respiratory: No reports of shortness of breath or cough GI: reports of occasional nausea, no reports of vomiting, no diarrhea : No reports of dysuria or retention Neurovascular: reports of generalized weakness All medications have been reviewed PHYSICAL EXAMINATION: GENERAL: The patient is alert and oriented x4, Well developed, well nourished. HEENT: Pupils are round and equally reacting to light. EOMI. no scleral icterus. No conjunctival pallor. Normocephalic, atraumatic. No pharyngeal erythema. No thyromegaly. CARDIOVASCULAR: S1 and S2 muffled PULMONARY: diminished breath sounds bilaterally with no wheezing or rhonchi noted. ABDOMEN: soft. Nontender on exam. obese. non-distended, normoactive bowel sounds. No palpable organomegaly. MUSCULOSKELETAL: No joint swelling or deformity. EXTREMITIES: No cyanosis, clubbing, or pedal edema. NEUROLOGICAL: Gross neurological examination did not reveal any focal deficits. Diffuse weakness SKIN: No rashes. Assessment: Shortness of breath, multifactorial secondary to chronic obstructive pulmonary disease acute exacerbation as well as CHF acute exacerbation with acute on chronic diastolic dysfunction Acute tracheobronchitis, ruled out pneumonia Chest pain, ACS ruled out Hypokalemia, improved history of MRSA UTI on recent admission continued on IV antibiotics with PICC line Atrial fibrillation history Diabetes mellitus, type II, insulin-dependent Chronic pain history of hypertension GI prophylaxis DVT prophylaxis Full code Plan: Recommend to continue with current medications and management with cardiology and infectious disease following. Patient does have a PICC line and received on last admission last week is continued on vancomycin with pharmacy to dose for MRSA UTI. Patient will be returning to [facility] to complete the course of antibiotics. Insurance authorization was submitted and pending at this time Patient being followed by cardiology and continued on IV Lasix and being transitioned oral Lasix Case management/social work following and patient reports she will be going home on discharge although patient has continued IV antibiotic therapy due for the next 4 days and is agreeable to return to [facility] to complete this IV ant ibiotics PT/OT therapy to reevaluate Continue monitoring Accu-Cheks before meals and at bedtime and will continue on sliding scale Discussed with patient and nursing staff about avoiding IV pain medication and continuing with chronic medications Possible discharge planning in the next 24 hours once insurance authorization has been approved The impression and plan of care has been dictated by Any Peguero, nurse practitioner as directed. Dr. Tyrese MD I have performed a history and examination and MDM of this patient, discussed the same with the dictator, and agree with the dictator's assessment and plan as written ,documented as a scribe. Based on total visit time, I have performed more than 50% of the visit. Any additional findings or plans will be noted. Objective - Vital Signs Vital signs: Vital Signs Temp 98.4 F 04/19/23 07:36 Pulse 80 04/19/23 08:01 Resp 18 04/19/23 07:36 BP 141/77 04/19/23 07:36 Pulse Ox 99 04/19/23 07:36 FiO2 Intake & Output 04/18/23 04/19/23 04/19/23 18:59 06:59 18:59 Intake Total 540 Balance 540 Weight 73.9 kg Intake: Other 540 Other: Voiding Method Toilet Toilet Diaper Diaper # Voids 2 - Labs CBC & Chem 7: 04/18/23 06:09 04/19/23 06:35 Labs: Abnormal Lab Results - Last 24 Hours (Table) 04/18/23 04/18/23 04/18/23 Range/Units 06:09 11:39 17:00 RBC 3.00 L (4.10-5.20) X 10*6/uL Hgb 8.8 L (12.0-15.0) g/dL Hct 29.3 L (37.2-46.3) % MCV 97.7 H (80.0-97.0) FL MCHC 30.0 L (32.0-37.0) g/dL RDW 18.9 H (11.5-14.5) % MPV 8.5 L (9.5-12.2) FL Eosinophils # 0.40 H (0.04-0.35) X 10*3/uL POC Glucose (mg/dL) 129 H 124 H (70-110) mg/dL 04/18/23 04/19/23 Range/Units 19:19 07:39 RBC (4.10-5.20) X 10*6/uL Hgb (12.0-15.0) g/dL Hct (37.2-46.3) % MCV (80.0-97.0) FL MCHC (32.0-37.0) g/dL RDW (11.5-14.5) % MPV (9.5-12.2) FL Eosinophils # (0.04-0.35) X 10*3/uL POC Glucose (mg/dL) 217 H 134 H (70-110) mg/dL
[2023-04-20] MEDS: HYDROcodone/APAP 5-325MG 1 EACH TAB PO PRN (05:54)
[2023-04-20] MEDS: DAPAGLIFLOZIN PROPANEDIOL 5 MG TABLET PO SCH (05:54)
[2023-04-20] MEDS: azaTHIOprine 50 MG TAB PO SCH ×2 (05:55→13:18)
[2023-04-20 07:42] LABS: Glucose,Whole Blood 126 mg/dL (70-110)
[2023-04-20] MEDS: IPRATROPIUM-ALBUTEROL 3 ML NEB INHALATION SCH ×2 (08:05→11:49)
[2023-04-20] MEDS: SYMBICORT 160-4.5 MCG INHALER INHALATION SCH (08:05)
[2023-04-20 08:23] VITALS: RESP 18
[2023-04-20] MEDS ORDERED: FUROSEMIDE 40 MG TAB PO SCH (09:00)
[2023-04-20] MEDS: LACTULOSE 20 GM/30 ML CUP PO SCH (09:02)
[2023-04-20] MEDS: PANTOPRAZOLE 40 MG/10 ML VIAL IVP SCH (09:02)
[2023-04-20] MEDS: FERROUS SULFATE 325 MG TAB PO SCH (09:03)
[2023-04-20] MEDS: APIXABAN 5 MG TAB PO SCH (09:03)
[2023-04-20] MEDS: POTASSIUM CHLORIDE ER 20 MEQ TAB.ER PO SCH (09:03)
[2023-04-20] MEDS: DOCUSATE 100 MG CAP PO SCH (09:03)
[2023-04-20] MEDS: METOPROLOL TARTRATE 50 MG TAB PO SCH (09:03)
[2023-04-20] MEDS: FOLIC ACID 1 MG TAB PO SCH (09:03)
[2023-04-20] MEDS: ISOSORBIDE MONONITRATE ER 30 MG TAB.ER.24H PO SCH (09:03)
[2023-04-20] MEDS: CHOLECALCIFEROL 25 MCG (1000 IU) TABLET PO SCH (09:03)
[2023-04-20] MEDS: SPIRONOLACTONE 25 MG TAB PO SCH (09:03)
[2023-04-20] MEDS: CYANOCOBALAMIN 500 MCG TAB PO SCH (09:03)
[2023-04-20] MEDS: ESCITALOPRAM 10 MG TAB PO SCH (09:04)
[2023-04-20] MEDS: INSULIN ASPART (NovoLOG) 100 UNIT/ML VIAL SQ SCH ×2 (09:04→12:29)
[2023-04-20] MEDS: OXYCODONE MYRISTATE 9 MG PO SCH (09:08)
--- NOTE | 2023-04-20 10:23 | P.DS ---
Providers Date of admission: 04/15/23 14:45 Expected date of discharge: 04/20/23 Attending physician: Fernando Kenny MD Consults: 04/15/23 10:10 Consult Physician Routine Consulting Provider: Allen Jolly Consult Reason/Comments: chf exac Do you want consulting provider notified?: Yes 04/15/23 11:38 Consult Physician Routine Consulting Provider: Kina Escobar Consult Reason/Comments: PICC, abx management Do you want consulting provider notified?: Yes Primary care physician: [facility] Course: Final diagnosis Shortness of breath, multifactorial secondary to chronic obstructive pulmonary disease acute exacerbation as well as CHF acute exacerbation with acute on chronic diastolic dysfunction Acute tracheobronchitis, ruled out pneumonia Chest pain, ACS ruled out Hypokalemia, improved history of MRSA UTI on recent admission continued on IV antibiotics with PICC line Atrial fibrillation history Diabetes mellitus, type II, insulin-dependent Chronic pain history of hypertension GI prophylaxis DVT prophylaxis Full code Discharge disposition Patient is being discharged in a stable condition with guarded prognosis to [facility]. Patient will follow-up with Dr. Ashford in the outpatient setting upon discharge. Patient is to continue with IV vancomycin with a PICC line for the next 5 days to complete the course and outpatient follow-up with cardiology as scheduled. Total time taken is greater than 35 minutes. Hospital course This is a 73-year-old female who was recently admitted with increased shortness of breath with CHF exacerbation being continued on IV Lasix. Patient has transitioned oral Lasix with cardiology following recommended outpatient follow- up. Patient also was recently hospitalized and received a PICC line for UTI w ith MRSA and continued on vancomycin with infectious disease following. Patient is to continue with 5 days remaining of IV antibiotics per ID recommendations to complete the course. Patient continues on room air and has been cleared by consultation for discharge to [facility]. Recommend continue monitoring Accu-Cheks before meals and at bedtime for diabetes and would continue with a diabetic consistent carb/heart healthy diet. Please refer to other consultation notes for further HPI. Currently no reports of chest pain, shortness of breath, or palpitations. Patient is afebrile. No reports of nausea or vomiting and patient is tolerating diet. Patient will be discharged to [facility] today. Physical exam: Gen: This is a 73-year-old female who is awake, alert and oriented 3, well-developed, well-nourished HEENT: Head is atraumatic, normocephalic. Pupils equal, round. Sclerae is anicteric. NECK: Supple. No JVD. No lymphadenopathy. No thyromegaly. LUNGS: Clear to auscultation. No wheezes or rhonchi. No intercostal retractions. HEART: Regular rate and rhythm. No murmur. ABDOMEN: Soft. Bowel sounds are present. No masses. No tenderness. EXTREMITIES: No pedal edema. No calf tenderness. NEUROLOGICAL: Patient is awake, alert and oriented x3. Cranial nerves 2 through 12 are grossly intact. Diffusely weak Please refer to medication reconciliation sheet for a list of medications. The impression and plan of care has been dictated by Any Peguero, Nurse Practitioner as directed. Dr. Tyrese MD I have performed a history and examination and MDM of this patient, discussed the same with the dictator, and agree with the dictator's assessment and plan as written ,documented as a scribe. Based on total visit time, I have performed more than 50% of the visit. Patient Condition at Discharge: Fair Plan - Discharge Summary New Discharge Prescriptions: New Ipratropium-Albuterol Nebulize [Duoneb 0.5 mg-3 mg/3 ml Soln] 3 ml INHALATION RT-QID PRN each PRN Reason: Shortness Of Breath Or Wheezing Furosemide [Lasix] 40 mg PO DAILY tab Budesonide-Formot 160-4.5 Mcg [Symbicort 160-4.5 Mcg Inhaler] 2 puff INHALATION RT-BID each Ipratropium-Albuterol Nebulize [Duoneb 0.5 mg-3 mg/3 ml Soln] 3 ml INHALATION RT-QID each Potassium Chloride ER [K-Dur 20] 20 meq PO BID tab Continue Folic Acid 1 mg PO DAILY@1200 metHOTREXate sodium [Methotrexate] 20 mg PO MO Nitroglycerin Sl Tabs [Nitrostat] 0.4 mg PO Q5M PRN PRN Reason: Chest Pain Apixaban [Eliquis] 5 mg PO BID@0800,1700 traZODone HCL [Desyrel] 50 mg PO HS@2100 Docusate [Colace] 100 mg PO BID@0800,1700 Isosorbide Mononitrate ER [Imdur] 30 mg PO DAILY@0800 Ferrous Sulfate [Iron (65 MG Elemental)] 325 mg PO DAILY@0800 Cyanocobalamin [Vitamin B-12] 500 mcg PO DAILY@0800 Nicotine Polacrilex [Nicotine Gum] 4 mg BC BID PRN PRN Reason: smoking cessation Sennosides [Senokot] 17.2 mg PO HS@2100 Oxycodone Myristate [Xtampza ER] 9 mg PO BID@0800,2100 Metoprolol Tartrate [Lopressor] 50 mg PO BID@0800,1700 Omeprazole 40 mg PO DAILY@0800 bisacodyL [Dulcolax] 10 mg RECTAL DAILY PRN PRN Reason: Constipation Na Phos,M-B/Na Phos,Di-Ba [Fleet Adult] 133 ml RECTAL DAILY PRN PRN Reason: Constipation azaTHIOprine [Imuran] 50 mg PO TID@0600,1400,2200 INSULIN LISPRO (HumaLOG) [humaLOG] See Protocol SQ ACHS@07,11,1630,2130 Lactulose 10 gm PO BID@0800,1700 Spironolactone 25 mg PO DAILY@0800 Escitalopram Oxalate [Lexapro] 10 mg PO DAILY@0800 Empagliflozin [Jardiance] 10 mg PO DAILY@0600 Cholecalciferol [Vitamin D3 (25 Mcg = 1000 Iu)] 25 mcg PO DAILY@0800 polyethylene glycoL 3350 [Miralax] 17 gm PO DAILY PRN PRN Reason: Constipation Mag Hydrox/Al Hydrox/Simeth [Maalox] 30 ml PO Q6H PRN PRN Reason: anti gas Acetaminophen Tab [Tylenol] 650 mg PO Q6HR PRN tab PRN Reason: Mild Pain Or Fever > 100.5 Magnesium Hydroxide [Milk of Magnesia Concentrate] 7,200 mg PO DAILY PRN PRN Reason: Constipation HYDROcodone/APAP 10-325MG [Coulter 10-325] 1 tab PO Q6HR PRN #6 tab PRN Reason: Pain Changed Vancomycin 1,250 mg IVPB DAILY 5 Days #5 each Discontinued Furosemide [Lasix] 20 mg PO DAILY@0800 Discharge Medication List Folic Acid 1 mg PO DAILY@1200 09/07/22 [History] metHOTREXate sodium [Methotrexate] 20 mg PO MO 10/16/22 [History] Apixaban [Eliquis] 5 mg PO BID@0800,1700 02/14/23 [History] Cholecalciferol [Vitamin D3 (25 Mcg = 1000 Iu)] 25 mcg PO DAILY@0800 02/14/23 [History] Docusate [Colace] 100 mg PO BID@0800,1700 02/14/23 [History] Empagliflozin [Jardiance] 10 mg PO DAILY@0600 02/14/23 [History] Escitalopram Oxalate [Lexapro] 10 mg PO DAILY@0800 02/14/23 [History] Ferrous Sulfate [Iron (65 MG Elemental)] 325 mg PO DAILY@0800 02/14/23 [History] INSULIN LISPRO (HumaLOG) [humaLOG] See Protocol SQ ACHS@07,11,1630,21302/14/23 [History] Isosorbide Mononitrate ER [Imdur] 30 mg PO DAILY@0800 02/14/23 [History] Lactulose 10 gm PO BID@0800,1700 02/14/23 [History] Na Phos,M-B/Na Phos,Di-Ba [Fleet Adult] 133 ml RECTAL DAILY PRN 02/14/23 [History] Nitroglycerin Sl Tabs [Nitrostat] 0.4 mg PO Q5M PRN 02/14/23 [History] Spironolactone 25 mg PO DAILY@0800 02/14/23 [History] azaTHIOprine [Imuran] 50 mg PO TID@0600,1400,2200 02/14/23 [History] bisacodyL [Dulcolax] 10 mg RECTAL DAILY PRN 02/14/23 [History] polyethylene glycoL 3350 [Miralax] 17 gm PO DAILY PRN 02/14/23 [History] traZODone HCL [Desyrel] 50 mg PO HS@209902/14/23 [History] Cyanocobalamin [Vitamin B-12] 500 mcg PO DAILY@0800 04/05/23 [History] Mag Hydrox/Al Hydrox/Simeth [Maalox] 30 ml PO Q6H PRN 04/05/23 [History] Nicotine Polacrilex [Nicotine Gum] 4 mg BC BID PRN 04/05/23 [History] Sennosides [Senokot] 17.2 mg PO HS@2100 04/05/23 [History] Acetaminophen Tab [Tylenol] 650 mg PO Q6HR PRN tab 04/13/23 [Rx] Magnesium Hydroxide [Milk of Magnesia Concentrate] 7,200 mg PO DAILY PRN 04/14/23 [History] Metoprolol Tartrate [Lopressor] 50 mg PO BID@0800,1700 04/14/23 [History] Omeprazole 40 mg PO DAILY@0800 04/14/23 [History] Oxycodone Myristate [Xtampza ER] 9 mg PO BID@0800,2100 04/14/23 [History] Budesonide-Formot 160-4.5 Mcg [Symbicort 160-4.5 Mcg Inhaler] 2 puff INHALATION RT-BID each 04/20/23 [Rx] Furosemide [Lasix] 40 mg PO DAILY tab 04/20/23 [Rx] HYDROcodone/APAP 10-325MG [Coulter 10-325] 1 tab PO Q6HR PRN #6 tab 04/20/23 [Rx] Ipratropium-Albuterol Nebulize [Duoneb 0.5 mg-3 mg/3 ml Soln] 3 ml INHALATION RT-QID each 04/20/23 [Rx] Ipratropium-Albuterol Nebulize [Duoneb 0.5 mg-3 mg/3 ml Soln] 3 ml INHALATION RT-QID PRN each 04/20/23 [Rx] Potassium Chloride ER [K-Dur 20] 20 meq PO BID tab 04/20/23 [Rx] Vancomycin 1,250 mg IVPB DAILY 5 Days #5 each 04/20/23 [Rx] Follow up Appointment(s)/Referral(s): [facility], [NON-STAFF] - 1 Week Kye Mitchell DO [Primary Care Provider] - 1-2 days Activity/Diet/Wound Care/Special Instructions: Patient is going to [facility] Activity as tolerated Patient to continue with IV vancomycin for the next 5 days to complete the course and patient does have a PICC line Continue monitoring Accu-Cheks before meals and at bedtime and continue with sliding scale NovoLog sliding scale 0-150 equals 0 units 151-200 equals 2 units 201-250 equals 4 units 251-300 equals 6 units 301-350 equals 8 units 351-400 equals 10 units Please notify provider if blood sugar is 400 or above Continue heart healthy diabetic diet Patient follow-up with primary care provider on discharge Follow-up with cardiology outpatient Continue taking medications as prescribed [facility] Address:[address] [place] [address] [facility] Address:[address] [place] [address] [facility] Address:[address], [place] [address] [facility] Address:[address], [place] [address] Discharge Disposition: TRANSFER TO SNF/ECF
[2023-04-20 12:23] LABS: Glucose,Whole Blood 138 mg/dL (70-110)
[2023-04-20 12:59] VITALS: BP 102/71; PULSE 72; TEMP 98.2
--- NOTE | 2023-04-20 17:53 | P.PN ---
Subjective Progress Note Date: 04/20/23 Principal diagnosis: Reason for follow-up is MRSA urinary tract infection Patient is a 73-year-old -Swiss female with a past medical history significant for diabetes mellitus hypertension atrial fibrillation spinal stenosis recently admitted at this facility and did have MRSA urinary tract infection patient presented with significant hematuria, blood culture negative organism was resistant to Bactrim could not use Zyvox because of Lexapro she got a PICC line and was getting vancomycin readmitted within 24 hours with chest pain and shortness of breath. On today's evaluation that is 04/20/2023, the patient continues to be afebrile patient is breathing comfortably on room air, no need for supplemental oxygen, patient denies any chest pain or cough no nausea no vomiting and no diarrhea has been reported, patient mention feeling better urine symptoms have improved Patient did have white count of 5.63 as of 04/18/2022, creatinine 0.9 Objective - Vital Signs Vital signs: Vital Signs Temp 98.4 F 04/20/23 07:40 Pulse 134 H 04/20/23 07:40 Resp 18 04/20/23 07:40 BP 169/93 04/20/23 07:40 Pulse Ox 96 04/20/23 07:40 FiO2 Intake & Output 04/19/23 04/20/23 04/20/23 18:59 06:59 18:59 Intake Total 1140 Balance 1140 Weight 73.9 kg 73.7 kg Intake: Oral 1140 Other: Voiding Method Toilet Toilet Diaper Diaper # Voids 2 1 - Exam GENERAL DESCRIPTION: An elderly female lying in bed in no distress RESPIRATORY SYSTEM: Unlabored breathing , decreased breath sounds at bases HEART: S1 S2 regular rate and rhythm , ABDOMEN: Soft , no tenderness EXTREMITIES: No edema feet - Labs CBC & Chem 7: 04/18/23 06:09 04/19/23 06:35 Labs: Abnormal Lab Results - Last 24 Hours (Table) 04/19/23 04/19/23 04/20/23 Range/Units 17:41 20:28 07:41 POC Glucose (mg/dL) 114 H 150 H 126 H (70-110) mg/dL 04/20/23 Range/Units 12:22 POC Glucose (mg/dL) 138 H (70-110) mg/dL Assessment and Plan (1) MRSA (methicillin resistant staph aureus) culture positive Status: Acute Code(s): Z22.322 - CARRIER OR SUSPECTED CARRIER OF METHICILLIN RESIS STAPH SNOMED Code(s): 952847572 (2) UTI (urinary tract infection) Status: Acute Code(s): N39.0 - URINARY TRACT INFECTION, SITE NOT SPECIFIED SNOMED Code(s): 46781471 Plan: 1patient with recent admission to the hospital with a complicated UTI urine culture positive for MRSA blood cultures were negative did have significant hematuria radiology recommended workup as an outpatient patient now presenting back to the hospital with chest pain and shortness of breath and currently being managed by cardiology 2-patient urinary symptoms has improved the patient remains to be afebrile creatinine is normal 3- patient to continue with the vancomycin to finish her course of therapy, afterwards PICC line should be discontinued Dictation was produced using [employer] software. please excuse any grammatical, word or spelling errors. Time with Patient: Less than 30
[2023-04-21] MEDS ORDERED: VANCOMYCIN 1,250 MG in SODIUM CHLORIDE 0.9% 250 ML IVPB SCH (06:00)
== END 2023-04-20 13:50 | DRG 291 ==
LOC: EC 19:26 → 1SOBS 04-15 00:17 → OBSVTOIN 04-15 14:45 → 5NMEDONC 04-15 17:01
PROVIDERS: ADMIT Internal Medicine; ATTEND Internal Medicine
DX: I11.0 Hypertensive heart disease with heart failure (principal); I50.33 Acute on chronic diastolic (congestive) heart failure; I48.21 Permanent atrial fibrillation; J44.0 Chronic obstructive pulmonary disease with (acute) lower respiratory infection; J44.1 Chronic obstructive pulmonary disease with (acute) exacerbation; N39.0 Urinary tract infection, site not specified; Z16.29 Resistance to other single specified antibiotic; I27.20 Pulmonary hypertension, unspecified; J20.9 Acute bronchitis, unspecified; K59.00 Constipation, unspecified; E87.6 Hypokalemia; B95.62 Methicillin resistant Staphylococcus aureus infection as the cause of diseases classified elsewhere; I34.0 Nonrheumatic mitral (valve) insufficiency; G89.29 Other chronic pain; I25.10 Atherosclerotic heart disease of native coronary artery without angina pectoris; K29.00 Acute gastritis without bleeding; Z79.01 Long term (current) use of anticoagulants; Z79.4 Long term (current) use of insulin; Z79.899 Other long term (current) drug therapy; Z79.84 Long term (current) use of oral hypoglycemic drugs; Z86.14 Personal history of Methicillin resistant Staphylococcus aureus infection; Z86.73 Personal history of transient ischemic attack (TIA), and cerebral infarction without residual deficits; Z87.891 Personal history of nicotine dependence; Z90.49 Acquired absence of other specified parts of digestive tract; Z96.651 Presence of right artificial knee joint; Z87.19 Personal history of other diseases of the digestive system; Z79.51 Long term (current) use of inhaled steroids
CPT/HCPCS: 36415; 71045; 71046; 71275; 80048; 80053; 80202; 82565; 83735; 83880; 84484; 85025; 85379; 85610; 85730; 93005; 94640; 96374; 96375; 99285

== ENCOUNTER 2023-05-19 05:16 | Observation (INO) | payer MEDICARE, OTHER ==
[2023-05-19] MEDS: NITROGLYCERIN SL TABS 0.4 MG TAB SUBLINGUAL STA ×2 (05:42→06:02)
[2023-05-19] MEDS: SODIUM CHLORIDE 0.9% 1,000 ML IV STA (05:44)
[2023-05-19 05:58] LABS: Anisocytosis Slight; Basophils % (A) 0 %; Eosinophils # (A) 0.1 k/uL (0-0.7); Eosinophils % (A) 2 %; HCT 33.6 % (34.0-46.0); HGB 10.7 gm/dL (11.4-16.0); Hypochromasia Slight; Lymphocytes # (A) 1.5 k/uL (1.0-4.8); Lymphocytes % (A) 28 %; MCH 30.4 pg (25.0-35.0); MCV 95.3 fL (80.0-100.0); Mean Platelet Volume 7.4; Monocytes # (A) 0.2 k/uL (0-1.0); Monocytes % (A) 3 %; Neutrophils # (A) 3.5 k/uL (1.3-7.7); Neutrophils % (A) 65 %; Platelet Count 294 k/uL (150-450); RBC 3.53 m/uL (3.80-5.40); RDW 16.4 % (11.5-15.5); WBC 5.4 k/uL (3.8-10.6)
--- NOTE | 2023-05-19 05:58 | ED ---
General Adult HPI - General Chief complaint: Chest Pain Stated complaint: chest pain Time Seen by Provider: 05/19/23 05:33 Source: patient, EMS, RN notes reviewed, old records reviewed Mode of arrival: EMS - History of Present Illness Initial comments: Patient is a 73-year-old female presents emergency department complaining of chest pain. States pain started approximately 8 PM yesterday evening. Attempted to take 1 nitro tablet at home with no improvement in symptoms. Sta madeleine the pain is on the external part of her chest with radiation to the right neck. Worse with movements as well as palpation. Denies any shortness of breath, abdominal pain, nausea, vomiting, diaphoresis. No other acute complaints. Received 1 nitro and aspirin from EMS. States pain is unchanged. Presents for further evaluation at this time. - Related Data Home Medications Medication Instructions Recorded Confirmed Folic Acid 1 mg PO DAILY@1200 09/07/22 04/14/23 metHOTREXate sodium 20 mg PO MO 10/16/22 04/14/23 Apixaban [Eliquis] 5 mg PO BID@0800,1700 02/14/23 04/14/23 Cholecalciferol [Vitamin D3 (25 25 mcg PO DAILY@0800 02/14/23 04/14/23 Mcg = 1000 Iu)] Docusate [Colace] 100 mg PO BID@0800,1700 02/14/23 04/14/23 Empagliflozin [Jardiance] 10 mg PO DAILY@0600 02/14/23 04/14/23 Escitalopram Oxalate [Lexapro] 10 mg PO DAILY@0800 02/14/23 04/14/23 Ferrous Sulfate [Iron (65 MG 325 mg PO DAILY@0800 02/14/23 04/14/23 Elemental)] INSULIN LISPRO (HumaLOG) [humaLOG] See Protocol SQ 02/14/23 04/14/23 ACHS@07,11,1630,2130 Isosorbide Mononitrate ER [Imdur] 30 mg PO DAILY@0800 02/14/23 04/14/23 Lactulose 10 gm PO BID@0800,1700 02/14/23 04/14/23 Na Phos,M-B/Na Phos,Di-Ba [Fleet 133 ml RECTAL DAILY PRN 02/14/23 04/14/23 Adult] Nitroglycerin Sl Tabs [Nitrostat] 0.4 mg PO Q5M PRN 02/14/23 04/14/23 Spironolactone 25 mg PO DAILY@0800 02/14/23 04/14/23 azaTHIOprine [Imuran] 50 mg PO TID@0600,1400,2200 02/14/23 04/14/23 bisacodyL [Dulcolax] 10 mg RECTAL DAILY PRN 02/14/23 04/14/23 polyethylene glycoL 3350 [Miralax] 17 gm PO DAILY PRN 02/14/23 04/14/23 traZODone HCL [Desyrel] 50 mg PO HS@2100 02/14/23 04/14/23 Cyanocobalamin [Vitamin B-12] 500 mcg PO DAILY@0800 04/05/23 04/14/23 Mag Hydrox/Al Hydrox/Simeth 30 ml PO Q6H PRN 04/05/23 04/14/23 [Maalox] Nicotine Polacrilex [Nicotine Gum] 4 mg BC BID PRN 04/05/23 04/14/23 Sennosides [Senokot] 17.2 mg PO HS@2100 04/05/23 04/14/23 Magnesium Hydroxide [Milk of 7,200 mg PO DAILY PRN 04/14/23 04/14/23 Magnesia Concentrate] Metoprolol Tartrate [Lopressor] 50 mg PO BID@0800,1700 04/14/23 04/14/23 Omeprazole 40 mg PO DAILY@0800 04/14/23 04/14/23 Previous Rx's Medication Instructions Recorded Acetaminophen Tab [Tylenol] 650 mg PO Q6HR PRN tab 04/13/23 Budesonide-Formot 160-4.5 Mcg 2 puff INHALATION RT-BID each 04/20/23 [Symbicort 160-4.5 Mcg Inhaler] Furosemide [Lasix] 40 mg PO DAILY tab 04/20/23 HYDROcodone/APAP 10-325MG [Vader 1 each PO Q6HR PRN #2 tab 04/20/23 10-325] Ipratropium-Albuterol Nebulize 3 ml INHALATION RT-QID each 04/20/23 [Duoneb 0.5 mg-3 mg/3 ml Soln] Ipratropium-Albuterol Nebulize 3 ml INHALATION RT-QID PRN each 04/20/23 [Duoneb 0.5 mg-3 mg/3 ml Soln] Oxycodone Myristate [Xtampza ER] 9 mg PO BID@0800,2100 #2 cap 04/20/23 Potassium Chloride ER [K-Dur 20] 20 meq PO BID tab 04/20/23 Vancomycin 1,250 mg IVPB DAILY 5 Days #5 each 04/20/23 Allergies Allergy/AdvReac Type Severity Reaction Status Date / Time No Known Allergies Allergy Verified 05/19/23 05:30 Review of Systems ROS Statement: Those systems with pertinent positive or pertinent negative responses have been documented in the HPI. Review of Systems: CONST: Denies fever EYES: Denies blurry vision ENT: Denies nasal congestion C/V: Endorses chest pain RESP: Denies shortness of breath GI: Denies abdominal pain : Denies dysuria SKIN: Denies rash. MSK: Denies joint pain. NEURO: Denies headache ROS Other: All systems not noted in ROS Statement are negative. 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 Spinal stenosis. Poss thyroid issue. Varicose veins,. CHF History of Any Multi-Drug Resistant Organisms: MRSA Date of last positivie culture/infection: 04/05/23 MDRO Source:: Urine Past Surgical History: Cholecystectomy, Heart Catheterization, Hernia Repair, Orthopedic Surgery Additional Past Surgical History / Comment(s): removed bone in left foot, Umbilical hernia, CARDIOVERSION, total right knee replacement Past Anesthesia/Blood Transfusion Reactions: No Reported Reaction Past Psychological History: Anxiety, Depression Smoking Status: Former smoker Past Alcohol Use History: None Reported Past Drug Use History: None Reported - Past Family History Father History Unknown: Yes Sister(s) Family Medical History: Cancer Additional Family Medical History / Comment(s): breast cancer Mother Family Medical History: Deep Vein Thrombosis (DVT) General Exam - General Exam Comments Initial Comments: General: Appears in no acute distress. HEAD: Normal with no signs of head trauma. EYES: PERRLA, EOMI, conjunctiva normal, no discharge. ENT: Hearing grossly intact, normal oropharynx. RESPIRATORY: Clear breath sounds bilaterally. No wheezes, rales, or rhonchi. C/V: Regular rate and rhythm. S1 and S2 auscultated, no edema, peripheral pulses 2+ and intact throughout. Chest pain is reproducible on palpation over the sternum. ABD: Abd is soft, nontender, nondistended EXT: Normal range of motion, no obvious deformity. Patient has right neck tenderness to palpation over the musculature, worse with looking to the left. Appears to involve the trapezius muscle. SKIN: No rashes or lesions observed on exposed skin. NEURO: Alert and oriented x 4. Course Vital Signs 05/19/23 05:20 Temperature 98.1 F Pulse Rate 112 H Respiratory 22 Rate Blood Pressure 149/99 O2 Sat by Pulse 96 Oximetry Medical Decision Making - Medical Decision Making Was pt. sent in by a medical professional or institution (, PA, COKE WORKER, urgent care, hospital, or group home...) When possible be specific @ -No Did you speak to anyone other than the patient for history (EMS, parent, family, police, friend...)? What history was obtained from this source @ -No Did you review nursing and triage notes (agree or disagree)? Why? @ -I reviewed and agree with nursing and triage notes Were old charts reviewed (outside hosp., previous admission, EMS record, old EKG, old radiological studies, urgent care reports/EKG's, group home records)? Report findings @ -Old charts reviewed Differential Diagnosis (chest pain, altered mental status, abdominal pain women, abdominal pain men, vaginal bleeding, weakness, fever, dyspnea, syncope, headache, dizziness, GI bleed, back pain, seizure, CVA, palpatations, mental health, musculoskeletal)? @ -Differential Chest Pain: Stable Angina, Unstable Angina, STEMI, NSTEMI Aortic Dissection, Pneumothorax, Musculoskeletal, Esophageal Spasm GERD, Cholecystitis, Pancreatitis, Zoster, this is not meant to be an all-inclusive list. EKG interpreted by me (3pts min.). @ -As above X-rays interpreted by me (1pt min.). @ -Chest x-ray reveals no obvious acute cardiopulmonary process. CT interpreted by me (1pt min.). @ -None done U/S interpreted by me (1pt. min.). @ -None done What testing was considered but not performed or refused? (CT, X-rays, U/S, labs)? Why? @ -None What meds were considered but not given or refused? Why? @ -None Did you discuss the management of the patient with other professionals (professionals i.e. , PA, COKE WORKER, lab, RT, psych nurse, social worker clinical, drop clipper, teacher, founder and chief technical officer, child welfare caseworker)? Give summary @ -I spoke with the admitting team, BLAIR Cherry of [facility] who accepted the admission. Was smoking cessation discussed for >3mins.? @ -No Was critical care preformed (if so, how long)? @ -No Were there social determinants of health that impacted care today? How? (Homelessness, low income, unemployed, alcoholism, drug addiction, transportation, low edu. Level, literacy, decrease access to med. care, group home, rehab)? @ -No Was there de-escalation of care discussed even if they declined (Discuss DNR or withdrawal of care, Hospice)? DNR status @ -No What co-morbidities impacted this encounter? (DM, HTN, Smoking, COPD, CAD, Cancer, CVA, ARF, Chemo, Hep., AIDS, mental health diagnosis, sleep apnea, morbid obesity)? @ -Atrial fibrillation Was patient admitted / discharged? Hospital course, mention meds given and route, prescriptions, significant lab abnormalities, going to OR and other pertinent info. @ -Based on the patient's presentation and physical exam, presents with somewhat atypical chest pain. Seems to be worse on palpation and with movement. Patient states she has experienced this before. Has a history of A-fib. No improvement with nitro at home. Will administer 1 additional nitro tablet for 3 total, and obtain cardiopulmonary workup. She was in agreement this plan. She is already on blood thinners. She already took 324 mg of aspirin. Vital signs are within acceptable limits except for mild atrial fibrillation. EKG shows A-fib. No evidence of acute ischemia.Chest x-ray shows no obvious a cute cardiopulmonary process. Patient's laboratory studies remarkable for chronic anemia, undetectable troponin. Remainder of labs within acceptable limits. On reevaluation, nitro x 2 has not significantly affected the patient's pain. Therefore we will treat with IV morphine at this time. She was in agreement this plan. Vital signs are still within acceptable limits. I spoke with the admitting team, BLAIR Cherry of [facility] who accepted the admission. Cardiology consulted. Will trend the troponin. Will continue her Eliquis. I did discuss with the patient that it seems to be chest wall type pain as it is reproducible with palpation and movements however due to her heart score being moderate at 4, I did recommend admission. Undiagnosed new problem with uncertain prognosis? @ -No Drug Therapy requiring intensive monitoring for toxicity (Heparin, Nitro, Insulin, Cardizem)? @ -No Were any procedures done? @ -No Diagnosis/symptom? @ -Chest pain/chest wall pain Acute, or Chronic, or Acute on Chronic? @ -Acute Uncomplicated (without systemic symptoms) or Complicated (systemic symptoms)? @ -Complicated Side effects of treatment? @ -None Exacerbation, Progression, or Severe Exacerbation] @ -No Poses a threat to life or bodily function? @ -Possibly, yes - Lab Data Result diagrams: 05/19/23 05:47 05/19/23 05:47 Lab Results 05/19/23 05/19/23 05/19/23 Range/Units 05:47 05:47 05:47 WBC 5.4 (3.8-10.6) k/uL RBC 3.53 L (3.80-5.40) m/uL Hgb 10.7 L (11.4-16.0) gm/dL Hct 33.6 L (34.0-46.0) % MCV 95.3 (80.0-100.0) fL MCH 30.4 (25.0-35.0) pg MCHC 32.0 (31.0-37.0) g/dL RDW 16.4 H (11.5-15.5) % Plt Count 294 (150-450) k/uL MPV 7.4 Neutrophils % 65 % Lymphocytes % 28 % Monocytes % 3 % Eosinophils % 2 % Basophils % 0 % Neutrophils # 3.5 (1.3-7.7) k/uL Lymphocytes # 1.5 (1.0-4.8) k/uL Monocytes # 0.2 (0-1.0) k/uL Eosinophils # 0.1 (0-0.7) k/uL Basophils # 0.0 (0-0.2) k/uL Hypochromasia Slight Anisocytosis Slight PT 10.3 (10.0-12.5) sec INR 0.9 (<1.2) APTT 25.5 (22.0-30.0) sec Sodium 143 (137-145) mmol/L Potassium 3.8 (3.5-5.1) mmol/L Chloride 112 H (98-107) mmol/L Carbon Dioxide 24 (22-30) mmol/L Anion Gap 7 mmol/L BUN 20 H (7-17) mg/dL Creatinine 0.74 (0.52-1.04) mg/dL Est GFR (CKD-EPI)AfAm >90 (>60 ml/min/1.73 sqM) Est GFR (CKD-EPI)NonAf 82 (>60 ml/min/1.73 sqM) Glucose 121 H (74-99) mg/dL Calcium 9.8 (8.4-10.2) mg/dL Magnesium 1.7 (1.6-2.3) mg/dL Total Bilirubin 1.4 H (0.2-1.3) mg/dL AST 22 (14-36) U/L ALT 11 (4-34) U/L Alkaline Phosphatase 148 H (38-126) U/L Troponin I (0.000-0.034) ng/mL Total Protein 6.5 (6.3-8.2) g/dL Albumin 3.7 (3.5-5.0) g/dL 05/19/23 Range/Units 05:47 WBC (3.8-10.6) k/uL RBC (3.80-5.40) m/uL Hgb (11.4-16.0) gm/dL Hct (34.0-46.0) % MCV (80.0-100.0) fL MCH (25.0-35.0) pg MCHC (31.0-37.0) g/dL RDW (11.5-15.5) % Plt Count (150-450) k/uL MPV Neutrophils % % Lymphocytes % % Monocytes % % Eosinophils % % Basophils % % Neutrophils # (1.3-7.7) k/uL Lymphocytes # (1.0-4.8) k/uL Monocytes # (0-1.0) k/uL Eosinophils # (0-0.7) k/uL Basophils # (0-0.2) k/uL Hypochromasia Anisocytosis PT (10.0-12.5) sec INR (<1.2) APTT (22.0-30.0) sec Sodium (137-145) mmol/L Potassium (3.5-5.1) mmol/L Chloride (98-107) mmol/L Carbon Dioxide (22-30) mmol/L Anion Gap mmol/L BUN (7-17) mg/dL Creatinine (0.52-1.04) mg/dL Est GFR (CKD-EPI)AfAm (>60 ml/min/1.73 sqM) Est GFR (CKD-EPI)NonAf (>60 ml/min/1.73 sqM) Glucose (74-99) mg/dL Calcium (8.4-10.2) mg/dL Magnesium (1.6-2.3) mg/dL Total Bilirubin (0.2-1.3) mg/dL AST (14-36) U/L ALT (4-34) U/L Alkaline Phosphatase (38-126) U/L Troponin I <0.012 (0.000-0.034) ng/mL Total Protein (6.3-8.2) g/dL Albumin (3.5-5.0) g/dL - EKG Data -: EKG Interpreted by Me EKG Comments: 12-lead Electrocardiogram Interpretation Note EKG was reviewed and interpreted by myself. 12-lead ECG performed at 0524 is interpreted by me as revealing atrial fibrillation with incomplete right bundle branch block at a rate of 103 beats per minute. Indeterminate axis. QRS is 99 ms, QTc is 396 ms.. There were no ST or T wave abnormalities to suggest myoc ardial ischemia or injury. R wave progression across the precordium was delayed. By my interpretation this EKG is non-diagnostic for acute ischemia. Disposition Clinical Impression: Chest pain, Chest wall pain Disposition: ADMITTED IP TO THIS [facility] Condition: Stable Referrals: Kye Mitchell DO [Primary Care Provider] - 1-2 days Time of Disposition: 06:28
[2023-05-19 06:08] LABS: INR 0.9 (<1.2); Partial Thromboplastin Time 25.5 sec (22.0-30.0); Prothrombin Time 10.3 sec (10.0-12.5)
[2023-05-19 06:17] LABS: ALT 11 U/L (4-34); AST 22 U/L (14-36); African American GFR (CKD) >90 (>60 ml/min/1.73 sqM); Albumin 3.7 g/dL (3.5-5.0); Alkaline Phosphatase 148 U/L (38-126); Anion Gap 7 mmol/L; Blood Urea Nitrogen 20 mg/dL (7-17); Calcium 9.8 mg/dL (8.4-10.2); Carbon Dioxide 24 mmol/L (22-30); Chloride 112 mmol/L (98-107); Glucose 121 mg/dL (74-99); Magnesium 1.7 mg/dL (1.6-2.3); Non-African American GFR(CKD) 82 (>60 ml/min/1.73 sqM); Potassium 3.8 mmol/L (3.5-5.1); Sodium 143 mmol/L (137-145); Total Bilirubin 1.4 mg/dL (0.2-1.3); Total Protein 6.5 g/dL (6.3-8.2)
[2023-05-19] MEDS ORDERED: NALOXONE 0.4 MG/ML 1 ML VIAL IV PRN (06:32)
[2023-05-19] MEDS ORDERED: ONDANSETRON 4 MG/2 ML VIAL IVP PRN (06:32)
[2023-05-19] MEDS: MORPHINE SULFATE 4 MG/ML SYRINGE IVP STA (06:47)
--- NOTE | 2023-05-19 07:29 | XR ---
EXAMINATION TYPE: XR chest 2V DATE OF EXAM: 05/19/2023 COMPARISON: 04/17/2023 HISTORY: 73-year-old female with chest pain TECHNIQUE: AP and lateral views FINDINGS: Heart moderately enlarged. Interstitial density. Possible trace pleural effusion on the lateral view. A stimulator is centered along the mid thoracic spinal canal. IMPRESSION: Moderate cardiomegaly. Correlate for superimposed pulmonary vascular congestion and trace pleural eff usions.
[2023-05-19] MEDS: APIXABAN 5 MG TAB PO SCH (08:30)
[2023-05-19] MEDS: METOPROLOL TARTRATE 50 MG TAB PO SCH (08:30)
[2023-05-19] MEDS: DILTIAZEM ORAL 30 MG TAB PO SCH (10:16)
[2023-05-19] MEDS: MORPHINE SULFATE 4 MG/ML SYRINGE IV PRN (10:16)
[2023-05-19] MEDS ORDERED: DEXTROSE 50% SYRINGE 50 ML IVP PRN ×2 (10:17)
--- NOTE | 2023-05-19 11:23 | P.CRDCN ---
History of Present Illness History of present illness: HISTORY OF PRESENT ILLNESS: This is a 73-year-old female with a past medical history significant for atrial fibrillation, mild coronary artery disease, CVA, COPD, A-fib ablation x 2, hype rtension, diabetes, hyperlipidemia, and former nicotine dependence. Patient follows in the office with Dr. Fatima. We have been asked to see the patient in consultation for chest pain. Patient examined at the bedside in the emergency room. Patient presented to the hospital due to chest discomfort. She states that she is felt like her heart is "aching". She states that she feels her heart pounding in her chest and also feels it behind her ear. She states that she took a nitro and aspirin with no relief of the pain. She does report some chest palpation tenderness. She reports shortness of breath with exertion which she states is chronic for her. Feels atrial fibrillation with a heart rate between [address]. DIAGNOSTICS: - EKG reveals A-fib with a heart rate of 103. No signs of acute ischemia.. - Chest xray mild cardiomegaly. Correlate for superimposed pulmonary vascular congestion and trace pleural effusions. - Laboratory data: WBC 5.4. Hemoglobin 10.7. Platelet count 294. Sodium 143. Potassium 3.8. BUN 20. Creatinine 0.74. Magnesium 1.7. Troponin negative x 2. - Current home cardiac medications include grams daily, spironolactone 25 mg daily, metoprolol titrate 50 mg twice a day, Imdur 30 mg daily, Jardiance 10 mg daily, and Eliquis 5 mg twice a day. - Most recent echocardiogram obtained in April 2023 reveals ejection fraction 50 to 55%, severe pulmonary hypertension, moderate TR, mild to moderate MR, mild to moderate concentric LVH. - Cardiac catheterization history: September 2022 revealing mild CAD REVIEW OF SYSTEMS: At the time of my exam: CONSTITUTIONAL: Denies fever or chills. HEENT: Denies blurred vision, vision changes, or eye pain. Denies hemoptysis CARDIOVASCULAR: Denies chest pain. Denies orthopnea. Denies PND. Denies palpitations RESPIRATORY: Denies shortness of breath. GASTROINTESTINAL: Denies abdominal pain. Denies nausea or vomiting. HEMATOLOGIC: Denies bleeding disorders. GENITOURINARY: Denies any blood in urine. SKIN: Denies pruitis. Denies rash. PHYSICAL EXAM: VITAL SIGNS: Reviewed. GENERAL: Well-developed in no acute distress. HEENT: Head is normocephalic. Pupils are equal, round. Sclerae anicteric. Mucous membranes of the mouth are moist. Neck supple. No JVD or thyromegaly LUNGS: Respirations even and unlabored. Lungs essentially clear to auscultation bilaterally. HEART: Irregular rate and rhythm. S1 and S2 heard. ABDOMEN: Soft. Nondistended. Nontender. EXTREMITIES: Normal range of motion. No clubbing or cyanosis. Peripheral pulses intact. Minimal lower extremity edema NEUROLOGIC: Awake and alert. Oriented x 3. ASSESSMENT: Chest pain, atypical, troponin negative x 2 Palpitations Persistent atrial fibrillation Mild to moderate LVH Severe pulmonary hypertension Mild coronary artery disease History of CVA x 3 History of A-fib ablation x 2 COPD Hypertension Hyperlipidemia Diabetes Former nicotine dependence PLAN: No need to repeat echocardiogram as this was performed last month Resume home cardiac medications Add Cardizem 30 mg every 6 hours for optimal heart rate control and blood pressure management Recommend outpatient sleep study to rule out sleep apnea Continue to monitor patient for additional 24 hours Anticipate discharge home tomorrow Further recommendations being patient course Nurse practitioner note has been reviewed by physician. Signing provider agrees with the documented findings, assessment, and plan of care documented by TRESTLE[employer] as a scribe. 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 Spinal stenosis. Poss thyroid issue. Varicose veins,. CHF History of Any Multi-Drug Resistant Organisms: MRSA Date of last positivie culture/infection: 04/05/23 MDRO Source:: Urine Past Surgical History: Cholecystectomy, Heart Catheterization, Hernia Repair, Orthopedic Surgery Additional Past Surgical History / Comment(s): removed bone in left foot, Umbilical hernia, CARDIOVERSION, total right knee replacement Past Anesthesia/Blood Transfusion Reactions: No Reported Reaction Past Psychological History: Anxiety, Depression Smoking Status: Former smoker Past Alcohol Use History: None Reported Past Drug Use History: None Reported - Past Family History Father History Unknown: Yes Sister(s) Family Medical History: Cancer Additional Family Medical History / Comment(s): breast cancer Mother Family Medical History: Deep Vein Thrombosis (DVT) Medications and Allergies Home Medications Medication Instructions Recorded Confirmed Type Folic Acid 1 mg PO DAILY 09/07/22 05/19/23 History metHOTREXate sodium 20 mg PO MO 10/16/22 05/19/23 History Apixaban [Eliquis] 5 mg PO BID 02/14/23 05/19/23 History Empagliflozin [Jardiance] 10 mg PO DAILY 02/14/23 05/19/23 History Escitalopram Oxalate [Lexapro] 10 mg PO DAILY 02/14/23 05/19/23 History INSULIN LISPRO (HumaLOG) [humaLOG] See Protocol SQ 02/14/23 05/19/23 History ACHS@07,11,1630,2130 Isosorbide Mononitrate ER [Imdur] 30 mg PO DAILY 02/14/23 05/19/23 History Nitroglycerin Sl Tabs [Nitrostat] 0.4 mg PO Q5M PRN 02/14/23 05/19/23 History Spironolactone 25 mg PO DAILY 02/14/23 05/19/23 History azaTHIOprine [Imuran] 50 mg PO TID 02/14/23 05/19/23 History traZODone HCL [Desyrel] 50 mg PO HS 02/14/23 05/19/23 History Metoprolol Tartrate [Lopressor] 50 mg PO BID 04/14/23 05/19/23 History Omeprazole 40 mg PO DAILY 04/14/23 05/19/23 History Budesonide-Formot 160-4.5 Mcg 2 puff INHALATION RT-BID each 04/20/23 05/19/23 Rx [Symbicort 160-4.5 Mcg Inhaler] Ipratropium-Albuterol Nebulize 3 ml INHALATION RT-QID PRN each 04/20/23 05/19/23 Rx [Duoneb 0.5 mg-3 mg/3 ml Soln] Potassium Chloride ER [K-Dur 20] 20 meq PO BID tab 04/20/23 05/19/23 Rx Furosemide [Lasix] 20 mg PO DAILY 05/19/23 05/19/23 History Allergies Allergy/AdvReac Type Severity Reaction Status Date / Time No Known Allergies Allergy Verified 05/19/23 05:30 Physical Exam Vitals: Vital Signs Temp Pulse Resp BP Pulse Ox 05/19/23 06:30 113 H 23 140/123 99 05/19/23 06:00 114 H 24 134/92 98 05/19/23 05:20 98.1 F 112 H 22 149/99 96 Intake and Output 05/18/23 05/19/23 05/19/23 22:59 06:59 14:59 Other: Weight 72.575 kg Results 05/19/23 05:47 05/19/23 05:47 Cardiac Enzymes 05/19/23 05/19/23 05/19/23 Range/Units 05:47 05:47 08:37 AST 22 (14-36) U/L Troponin I <0.012 <0.012 (0.000-0.034) ng/mL Coagulation 05/19/23 Range/Units 05:47 PT 10.3 (10.0-12.5) sec APTT 25.5 (22.0-30.0) sec CBC 05/19/23 Range/Units 05:47 WBC 5.4 (3.8-10.6) k/uL RBC 3.53 L (3.80-5.40) m/uL Hgb 10.7 L (11.4-16.0) gm/dL Hct 33.6 L (34.0-46.0) % Plt Count 294 (150-450) k/uL Comprehensive Metabolic Panel 05/19/23 Range/Units 05:47 Sodium 143 (137-145) mmol/L Potassium 3.8 (3.5-5.1) mmol/L Chloride 112 H (98-107) mmol/L Carbon Dioxide 24 (22-30) mmol/L BUN 20 H (7-17) mg/dL Creatinine 0.74 (0.52-1.04) mg/dL Glucose 121 H (74-99) mg/dL Calcium 9.8 (8.4-10.2) mg/dL AST 22 (14-36) U/L ALT 11 (4-34) U/L Alkaline Phosphatase 148 H (38-126) U/L Total Protein 6.5 (6.3-8.2) g/dL Albumin 3.7 (3.5-5.0) g/dL Current Medications Generic Name Dose Route Start Last Admin Trade Name Freq PRN Reason Stop Dose Admin Albuterol/Ipratropium 3 ml 05/19/23 10:15 Ipratropium-Albuterol 3 Ml Neb INHALATION RT-QID PRN Shortness Of Breath Or Wheezing Apixaban 5 mg 05/19/23 08:00 05/19/23 08:30 Apixaban 5 Mg Tab PO 5 mg BID@0800,1700 [facility] Administration Protocol Azathioprine 50 mg 05/19/23 16:00 Azathioprine 50 Mg Tab PO TID [facility] Budesonide/Formoterol Fumarate 2 puff 05/19/23 20:00 Symbicort 160-4.5 Mcg Inhaler INHALATION RT-BID [facility] Dextrose/Water 25 ml 05/19/23 10:17 Dextrose 50% Syringe 50 Ml IVP PER PROTOCOL PRN Hypoglycemia Protocol Dextrose/Water 50 ml 05/19/23 10:17 Dextrose 50% Syringe 50 Ml IVP PER PROTOCOL PRN Hypoglycemia Protocol Diltiazem HCl 30 mg 05/19/23 10:00 05/19/23 10:16 Diltiazem Oral 30 Mg Tab PO 30 mg Q6H [facility] Administration Escitalopram Oxalate 10 mg 05/20/23 09:00 Escitalopram 10 Mg Tab PO DAILY [facility] Folic Acid 1 mg 05/20/23 09:00 Folic Acid 1 Mg Tab PO DAILY [facility] Furosemide 20 mg 05/20/23 09:00 Furosemide 20 Mg Tab PO DAILY [facility] Insulin Aspart 0 unit 05/19/23 12:30 Insulin Aspart (Novolog) 100 Unit/Ml Vial SQ ACHS [facility] Protocol Metoprolol Tartrate 50 mg 05/19/23 08:00 05/19/23 08:30 Metoprolol Tartrate 50 Mg Tab PO 50 mg BID@0800,1700 [facility] Administration Morphine Sulfate 4 mg 05/19/23 06:32 05/19/23 10:16 Morphine Sulfate 4 Mg/Ml Syringe IV 4 mg Q4HR PRN Administration Severe Pain (Scale 7 to 10) Naloxone HCl 0.2 mg 05/19/23 06:32 Naloxone 0.4 Mg/Ml 1 Ml Vial IV Q2M PRN Opioid Reversal Ondansetron HCl 4 mg 05/19/23 06:32 Ondansetron 4 Mg/2 Ml Vial IVP Q8HR PRN Nausea And Vomiting Trazodone HCl 50 mg 05/19/23 21:00 Trazodone Hcl 50 Mg Tab PO HS [facility] Intake and Output 05/18/23 05/19/23 05/19/23 22:59 06:59 14:59 Other: Weight 72.575 kg 05/19/23 05:47 05/19/23 05:47
--- NOTE | 2023-05-19 13:21 | P.HPIM ---
History of Present Illness H&P Date: 05/19/23 History of present illness; patient is a 73-year-old lady with past medical history significant for atrial fibrillation, heart failure, rheumatoid arthritis presented to the ER because of chest pain. Patient stated that she was all right last night when she started experiencing chest pain that was right-sided, radiated into the right part of neck, constant, aggravated by movements, no relieving factor associated chest pain. There was no complaint nausea or vomiting at the time. There was no complaint of shortness of breath. Denied any palpitations. Patient did receive nitro that did not relieve her pain. Patient was brought to the ER Initial lab work done in the ER showed WBC 5.4, hemoglobin 10.7, platelet count 294, sodium 140, potassium 3.8, BUN 20, creatinine 0.74, glucose 121, total bilirubin 1.4, troponin 0.012 EKG done in the ER showed heart rate of 113, irregular rate and rhythm, no ST segment elevation or depression seen, no T-wave inversions seen. Chest x-ray done in the ER showed moderate cardiomegaly, correlate for superimposed pulmonary vessel congestion and trace pleural effusions Patient admitted to internal medicine service REVIEW OF SYSTEMS: CONSTITUTIONAL: No fever, no malaise, no fatigue. HEENT: No recent visual problems or hearing problems. Denied any sore throat. CARDIOVASCULAR: As mentioned above PULMONARY: No shortness of breath, no cough, no hemoptysis. GASTROINTESTINAL: No diarrhea, no nausea, no vomiting, no abdominal pain. NEUROLOGICAL: No headaches, no weakness, no numbness. HEMATOLOGICAL: Denies any bleeding or petechiae. GENITOURINARY: Denies any burning micturition, frequency, or urgency. MUSCULOSKELETAL/RHEUMATOLOGICAL: Denies any joint pain, swelling, or any muscle pain. ENDOCRINE: Denies any polyuria or polydipsia. The rest of the 14-point review of systems is negative. PHYSICAL EXAMINATION: GENERAL: The patient is alert and oriented x3, not in any acute distress. Well developed, well nourished. HEENT: Pupils are round and equally reacting to light. EOMI. No scleral icterus. No conjunctival pallor. Normocephalic, atraumatic. No pharyngeal erythema. No thyromegaly. CARDIOVASCULAR: S1 and S2 present. No murmurs, rubs, or gallops. PULMONARY: Chest is clear to auscultation, no wheezing or crackles. ABDOMEN: Soft, nontender, nondistended, normoactive bowel sounds. No palpable organomegaly. MUSCULOSKELETAL: No joint swelling or deformity. EXTREMITIES: No cyanosis, clubbing, or pedal edema. NEUROLOGICAL: Gross neurological examination did not reveal any focal deficits. SKIN: No rashes. Assessment and plan Chest pain, rule out acute coronary syndrome Chronic diastolic heart failure Atrial fibrillation with controlled heart rate. Hypertensive heart disease Mild nonobstructive coronary artery disease history of MRSA UTI on recent admission Diabetes mellitus, type II, insulin-dependent Chronic pain history of hypertension Monitor vital signs Monitor CBC Monitor CMP Continue telemetry monitoring Trend troponin. Continue oral Cardizem and Lopressor Resume Eliquis Resume home meds Consult cardiology Labs and medication were reviewed.. Continue same treatment. Continue with symptomatic treatment. Resume home medication. Monitor labs and vitals. DVT and GI prophylaxis. Further recommendations as per clinical course of the patient Dictation was produced using [employer] dictation software. please excuse any grammatical, word or spelling errors. 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 Spinal stenosis. Poss thyroid issue. Varicose veins,. CHF History of Any Multi-Drug Resistant Organisms: MRSA Date of last positivie culture/infection: 04/05/23 MDRO Source:: Urine Past Surgical History: Cholecystectomy, Heart Catheterization, Hernia Repair, Orthopedic Surgery Additional Past Surgical History / Comment(s): removed bone in left foot, Umbilical hernia, CARDIOVERSION, total right knee replacement Past Anesthesia/Blood Transfusion Reactions: No Reported Reaction Past Psychological History: Anxiety, Depression Smoking Status: Former smoker Past Alcohol Use History: None Reported Past Drug Use History: None Reported - Past Family History Father History Unknown: Yes Sister(s) Family Medical History: Cancer Additional Family Medical History / Comment(s): breast cancer Mother Family Medical History: Deep Vein Thrombosis (DVT) Medications and Allergies Home Medications Medication Instructions Recorded Confirmed Type Folic Acid 1 mg PO DAILY 09/07/22 05/19/23 History metHOTREXate sodium 20 mg PO MO 10/16/22 05/19/23 History Apixaban [Eliquis] 5 mg PO BID 02/14/23 05/19/23 History Empagliflozin [Jardiance] 10 mg PO DAILY 02/14/23 05/19/23 History Escitalopram Oxalate [Lexapro] 10 mg PO DAILY 02/14/23 05/19/23 History INSULIN LISPRO (HumaLOG) [humaLOG] See Protocol SQ 02/14/23 05/19/23 History ACHS@07,11,1630,2130 Isosorbide Mononitrate ER [Imdur] 30 mg PO DAILY 02/14/23 05/19/23 History Nitroglycerin Sl Tabs [Nitrostat] 0.4 mg PO Q5M PRN 02/14/23 05/19/23 History Spironolactone 25 mg PO DAILY 02/14/23 05/19/23 History azaTHIOprine [Imuran] 50 mg PO TID 02/14/23 05/19/23 History traZODone HCL [Desyrel] 50 mg PO HS 02/14/23 05/19/23 History Metoprolol Tartrate [Lopressor] 50 mg PO BID 04/14/23 05/19/23 History Omeprazole 40 mg PO DAILY 04/14/23 05/19/23 History Budesonide-Formot 160-4.5 Mcg 2 puff INHALATION RT-BID each 04/20/23 05/19/23 Rx [Symbicort 160-4.5 Mcg Inhaler] Ipratropium-Albuterol Nebulize 3 ml INHALATION RT-QID PRN each 04/20/23 05/19/23 Rx [Duoneb 0.5 mg-3 mg/3 ml Soln] Potassium Chloride ER [K-Dur 20] 20 meq PO BID tab 04/20/23 05/19/23 Rx Furosemide [Lasix] 20 mg PO DAILY 05/19/23 05/19/23 History Allergies Allergy/AdvReac Type Severity Reaction Status Date / Time No Known Allergies Allergy Verified 05/19/23 05:30 Physical Exam Vitals: Vital Signs Temp Pulse Resp BP Pulse Ox 05/19/23 06:30 113 H 23 140/123 99 05/19/23 06:00 114 H 24 134/92 98 05/19/23 05:20 98.1 F 112 H 22 149/99 96 Intake and Output 05/18/23 05/19/23 05/19/23 22:59 06:59 14:59 Other: Weight 72.575 kg Results CBC & Chem 7: 05/19/23 05:47 05/19/23 05:47 Labs: Abnormal Lab Results - Last 24 Hours (Table) 05/19/23 05/19/23 Range/Units 05:47 05:47 RBC 3.53 L (3.80-5.40) m/uL Hgb 10.7 L (11.4-16.0) gm/dL Hct 33.6 L (34.0-46.0) % RDW 16.4 H (11.5-15.5) % Chloride 112 H (98-107) mmol/L BUN 20 H (7-17) mg/dL Glucose 121 H (74-99) mg/dL Total Bilirubin 1.4 H (0.2-1.3) mg/dL Alkaline Phosphatase 148 H (38-126) U/L
[2023-05-19] MEDS: PERMETHRIN 5% CREAM 60 GM TUBE TOPICAL ONE (13:44)
[2023-05-19] MEDS: DAPAGLIFLOZIN PROPANEDIOL 5 MG TABLET PO SCH (13:44)
[2023-05-19] MEDS: INSULIN ASPART (NovoLOG) 100 UNIT/ML VIAL SQ SCH (13:46)
[2023-05-19 13:47] LABS: Glucose,Whole Blood 97 mg/dL (70-110)
[2023-05-19] MEDS: ISOSORBIDE MONONITRATE ER 30 MG TAB.ER.24H PO SCH (13:50)
[2023-05-19] MEDS: SPIRONOLACTONE 25 MG TAB PO SCH (13:50)
[2023-05-19] MEDS: azaTHIOprine 50 MG TAB PO SCH (16:14)
[2023-05-19 16:43] LABS: Glucose,Whole Blood 98 mg/dL (70-110)
[2023-05-19] MEDS: IPRATROPIUM-ALBUTEROL 3 ML NEB INHALATION PRN (20:19)
[2023-05-19] MEDS: SYMBICORT 160-4.5 MCG INHALER INHALATION SCH (20:19)
[2023-05-19] MEDS: traZODone HCL 50 MG TAB PO SCH (20:41)
[2023-05-19 20:45] LABS: Glucose,Whole Blood 84 mg/dL (70-110)
[2023-05-20 00:45] VITALS: TEMP 98.3
[2023-05-20 06:22] LABS: Glucose,Whole Blood 121 mg/dL (70-110)
[2023-05-20 08:19] LABS: Basophils # (A) 0.03 X 10*3/uL (0.00-0.10); Basophils % (A) 0.8 %; Eosinophils # (A) 0.13 X 10*3/uL (0.04-0.35); Eosinophils % (A) 3.5 %; HGB 9.2 g/dL (12.0-15.0); Lymphocytes # (A) 1.28 X 10*3/uL (0.90-5.00); Lymphocytes % (A) 34.3 %; MCH 31.1 pg (27.0-32.0); MCHC 31.7 g/dL (32.0-37.0); Mean Platelet Volume 9.1 FL (9.5-12.2); Monocytes # (A) 0.21 X 10*3/uL (0.20-1.00); Monocytes % (A) 5.6 %; NRBC Per 100 WBC 0 X 10*3/uL (0.00-0.01); Neutrophils # (A) 2.07 X 10*3/uL (1.80-7.70); Neutrophils % (A) 55.5 %; Platelet Count 248 X 10*3/uL (140-440); RBC 2.96 X 10*6/uL (4.10-5.20); RDW 15.3 % (11.5-14.5); WBC 3.73 X 10*3/uL (4.50-10.00)
[2023-05-20 08:41] LABS: Blood Urea Nitrogen 14.4 mg/dL (9.0-27.0); Calcium 9.8 mg/dL (8.7-10.3); Carbon Dioxide 26.4 mmol/L (21.6-31.8); Chloride 111 mmol/L (96-109); Glucose 123 mg/dL (70-110); Potassium 3.8 mmol/L (3.5-5.5); Sodium 145 mmol/L (135-145)
[2023-05-20 09:21] VITALS: BP 138/82; PULSE 81; RESP 18
[2023-05-20] MEDS: FOLIC ACID 1 MG TAB PO SCH (10:10)
[2023-05-20] MEDS: FUROSEMIDE 20 MG TAB PO SCH (10:10)
[2023-05-20] MEDS: ESCITALOPRAM 10 MG TAB PO SCH (10:11)
--- NOTE | 2023-05-20 11:01 | P.PN ---
Subjective HISTORY OF PRESENT ILLNESS: This is a 73-year-old female with a past medical history significant for atrial fibrillation, mild coronary artery disease, CVA, COPD, A-fib ablation x 2, hypertension, diabetes, hyperlipidemia, and former nicotine dependence. Patient follows in the office with Dr. Fatima. We have been asked to see the patient in consultation for chest pain. Patient examined at the bedside in the emergency room. Patient presented to the hospital due to chest discomfort. She states that she is felt like her heart is "aching". She states that she feels her heart pounding in her chest and also feels it behind her ear. She states that she took a nitro and aspirin with no relief of the pain. She does report some chest palpation tenderness. She reports shortness of breath with exertion which she states is chronic for her. Feels atrial fibrillation with a heart rate between [address]. DIAGNOSTICS: - EKG reveals A-fib with a heart rate of 103. No signs of acute ischemia.. - Chest xray mild cardiomegaly. Correlate for superimposed pulmonary vascular congestion and trace pleural effusions. - Laboratory data: WBC 5.4. Hemoglobin 10.7. Platelet count 294. Sodium 143. Potassium 3.8. BUN 20. Creatinine 0.74. Magnesium 1.7. Troponin negative x 2. - Current home cardiac medications include grams daily, spironolactone 25 mg daily, metoprolol titrate 50 mg twice a day, Imdur 30 mg daily, Jardiance 10 mg daily, and Eliquis 5 mg twice a day. - Most recent echocardiogram obtained in April 2023 reveals ejection fraction 50 to 55%, severe pulmonary hypertension, moderate TR, mild to moderate MR, mild to moderate concentric LVH. - Cardiac catheterization history: September 2022 revealing mild CAD 05/20/2023 Patient examined this morning at the bedside. Patient states she feels much better in comparison to yesterday. She states that she has had resolution of her shortness of breath. She also reports improvement in her palpitations. Telemetry reveals atrial fibrillation with controlled ventricular rate. The patient did have a run of nonsustained VT this morning. Pressure 138/82 PHYSICAL EXAM: VITAL SIGNS: Reviewed. GENERAL: Well-developed in no acute distress. HEENT: Head is normocephalic. Pupils are equal, round. Sclerae anicteric. Mucous membranes of the mouth are moist. Neck supple. No JVD or thyromegaly LUNGS: Respirations even and unlabored. Lungs essentially clear to auscultation bilaterally. HEART: Irregular rate and rhythm. S1 and S2 heard. ABDOMEN: Soft. Nondistended. Nontender. EXTREMITIES: Normal range of motion. No clubbing or cyanosis. Peripheral pulses intact. Minimal lower extremity edema NEUROLOGIC: Awake and alert. Oriented x 3. ASSESSMENT: Chest pain, atypical, troponin negative x 2 Palpitations Persistent atrial fibrillation Mild to moderate LVH Severe pulmonary hypertension Mild coronary artery disease History of CVA x 3 History of A-fib ablation x 2 COPD Hypertension Hyperlipidemia Diabetes Former nicotine dependence Nonsustained VT PLAN: Change Cardizem to Cardizem CD 180 mg Continue additional cardiac medications Recommend outpatient sleep study to rule out sleep apnea Patient is stable for discharge home today from a cardiac standpoint Patient is to follow-up post discharge with Dr. Fatima Nurse practitioner note has been reviewed by physician. Signing provider agrees with the documented findings, assessment, and plan of care documented by [employer]ACE [employer] as a scribe. Objective - Vital Signs Vital signs: Vital Signs Temp 98.3 F 05/20/23 08:20 Pulse 81 05/20/23 08:20 Resp 18 05/20/23 08:20 BP 138/82 05/20/23 08:20 Pulse Ox 96 05/20/23 08:20 FiO2 21 05/20/23 08:00 Intake & Output 05/19/23 05/20/23 05/20/23 18:59 06:59 18:59 Intake Total 118 Balance 118 Weight 72.575 kg Intake: Oral 118 Other: Voiding Method Diaper Diaper Incontinent Incontinent # Voids 1 - Labs CBC & Chem 7: 05/20/23 06:29 05/20/23 06:29 Labs: Abnormal Lab Results - Last 24 Hours (Table) 05/20/23 05/20/23 05/20/23 Range/Units 06:21 06:29 06:29 WBC 3.73 L (4.50-10.00) X 10*3/uL RBC 2.96 L (4.10-5.20) X 10*6/uL Hgb 9.2 L (12.0-15.0) g/dL Hct 29.0 L (37.2-46.3) % MCV 98.0 H (80.0-97.0) FL MCHC 31.7 L (32.0-37.0) g/dL RDW 15.3 H (11.5-14.5) % MPV 9.1 L (9.5-12.2) FL Chloride 111 H (96-109) mmol/L Glucose 123 H (70-110) mg/dL POC Glucose (mg/dL) 121 H (70-110) mg/dL
[2023-05-20] MEDS: DILTIAZEM CD 180 MG CAP.ER.24H PO SCH (11:51)
[2023-05-20 12:51] LABS: Glucose,Whole Blood 149 mg/dL (70-110)
[2023-05-20] MEDS: POTASSIUM CHLORIDE ER 20 MEQ TAB.ER PO STA (13:02)
--- NOTE | 2023-05-20 13:12 | P.DS ---
Providers Date of admission: 05/19/23 06:34 Expected date of discharge: 05/20/23 Attending physician: Vinod Andres Consults: 05/19/23 06:32 Consult Physician Routine Consulting Provider: [facility] Consult Reason/Comments: chest pain Do you want consulting provider notified?: Yes Primary care physician: [facility] Course: Discharge diagnoses; Chest pain,acute coronary syndrome ruled out Chronic diastolic heart failure Atrial fibrillation with controlled heart rate. Hypertensive heart disease Mild nonobstructive coronary artery disease history of MRSA UTI on recent admission Diabetes mellitus, type II, insulin-dependent Chronic pain history of hypertension Lice infestation Poor living conditions Hospital course; patient is a 73-year-old lady with past medical history significant for atrial fibrillation, heart failure, rheumatoid arthritis presented to the ER because of chest pain. Patient stated that she was all right last night when she started experiencing chest pain that was right-sided, radiated into the right part of neck, constant, aggravated by movements, no relieving factor associated chest pain. There was no complaint nausea or vomiting at the time. There was no complaint of shortness of breath. Denied any palpitations. Patient did receive nitro that did not relieve her pain. Patient was brought to the ER Initial lab work done in the ER showed WBC 5.4, hemoglobin 10.7, platelet count 294, sodium 140, potassium 3.8, BUN 20, creatinine 0.74, glucose 121, total bilirubin 1.4, troponin 0.012 EKG done in the ER showed heart rate of 113, irregular rate and rhythm, no ST segment elevation or depression seen, no T-wave inversions seen. Chest x-ray done in the ER showed moderate cardiomegaly, correlate for superimposed pulmonary vessel congestion and trace pleural effusions Patient admitted to internal medicine service 05/20. Patient seen and examined patient evaluated with cardiology, they recommended discharging patient on Cardizem 180 mg CD. Case management has talked with patient, addressed her concerns. PHYSICAL EXAMINATION: GENERAL: The patient is alert and oriented x3, not in any acute distress. Well developed, well nourished. HEENT: Pupils are round and equally reacting to light. EOMI. No scleral icterus. No conjunctival pallor. Normocephalic, atraumatic. No pharyngeal erythema. No thyromegaly. CARDIOVASCULAR: S1 and S2 present. No murmurs, rubs, or gallops. PULMONARY: Chest is clear to auscultation, no wheezing or crackles. ABDOMEN: Soft, nontender, nondistended, normoactive bowel sounds. No palpable organomegaly. MUSCULOSKELETAL: No joint swelling or deformity. EXTREMITIES: No cyanosis, clubbing, or pedal edema. NEUROLOGICAL: Gross neurological examination did not reveal any focal deficits. SKIN: No rashes. Dictation was produced using [employer] dictation software. please excuse any grammatical, word or spelling errors. Patient Condition at Discharge: Stable Plan - Discharge Summary Discharge Rx Participant: No New Discharge Prescriptions: New Diltiazem Cd [Cardizem CD] 180 mg PO DAILY 30 Days #30 cap Continue Folic Acid 1 mg PO DAILY metHOTREXate sodium 20 mg PO MO Nitroglycerin Sl Tabs [Nitrostat] 0.4 mg PO Q5M PRN PRN Reason: Chest Pain Apixaban [Eliquis] 5 mg PO BID traZODone HCL [Desyrel] 50 mg PO HS Isosorbide Mononitrate ER [Imdur] 30 mg PO DAILY Metoprolol Tartrate [Lopressor] 50 mg PO BID Omeprazole 40 mg PO DAILY Ipratropium-Albuterol Nebulize [Duoneb 0.5 mg-3 mg/3 ml Soln] 3 ml INHALATION RT-QID PRN each PRN Reason: Shortness Of Breath Or Wheezing Budesonide-Formot 160-4.5 Mcg [Symbicort 160-4.5 Mcg Inhaler] 2 puff INHALATION RT-BID each azaTHIOprine [Imuran] 50 mg PO TID INSULIN LISPRO (HumaLOG) [humaLOG] See Protocol SQ ACHS@,0,2130 Spironolactone 25 mg PO DAILY Escitalopram Oxalate [Lexapro] 10 mg PO DAILY Empagliflozin [Jardiance] 10 mg PO DAILY Potassium Chloride ER [K-Dur 20] 20 meq PO BID tab Furosemide [Lasix] 20 mg PO DAILY Discharge Medication List Folic Acid 1 mg PO DAILY 09/07/22 [History] metHOTREXate sodium 20 mg PO MO 10/16/22 [History] Apixaban [Eliquis] 5 mg PO BID 02/14/23 [History] Empagliflozin [Jardiance] 10 mg PO DAILY 02/14/23 [History] Escitalopram Oxalate [Lexapro] 10 mg PO DAILY 02/14/23 [History] INSULIN LISPRO (HumaLOG) [humaLOG] See Protocol SQ ACHS@07,11,1630,2130 02/14/23 [History] Isosorbide Mononitrate ER [Imdur] 30 mg PO DAILY 02/14/23 [History] Nitroglycerin Sl Tabs [Nitrostat] 0.4 mg PO Q5M PRN 02/14/23 [History] Spironolactone 25 mg PO DAILY 02/14/23 [History] azaTHIOprine [Imuran] 50 mg PO TID 02/14/23 [History] traZODone HCL [Desyrel] 50 mg PO HS 02/14/23 [History] Metoprolol Tartrate [Lopressor] 50 mg PO BID 04/14/23 [History] Omeprazole 40 mg PO DAILY 04/14/23 [History] Budesonide-Formot 160-4.5 Mcg [Symbicort 160-4.5 Mcg Inhaler] 2 puff INHALATION RT-BID each 04/20/23 [Rx] Ipratropium-Albuterol Nebulize [Duoneb 0.5 mg-3 mg/3 ml Soln] 3 ml INHALATION RT-QID PRN each 04/20/23 [Rx] Potassium Chloride ER [K-Dur 20] 20 meq PO BID tab 04/20/23 [Rx] Furosemide [Lasix] 20 mg PO DAILY 05/19/23 [History] Diltiazem Cd [Cardizem CD] 180 mg PO DAILY 30 Days #30 cap 05/20/23 [Rx] Follow up Appointment(s)/Referral(s): Kye Mitchell DO [Primary Care Provider] - 1-2 days Activity/Diet/Wound Care/Special Instructions: ADAM JAVIER P: [phone] Discharge Disposition: HOME SELF-CARE
== END 2023-05-20 14:35 | disposition home or self-care (01) ==
LOC: EC 05:16 → 6NMEDSUR 06:34
PROVIDERS: ADMIT Hospitalist; ATTEND Hospitalist
DX: R07.89 Other chest pain (principal); R00.2 Palpitations; I48.19 Other persistent atrial fibrillation; E11.9 Type 2 diabetes mellitus without complications; I11.0 Hypertensive heart disease with heart failure; I50.32 Chronic diastolic (congestive) heart failure; F41.9 Anxiety disorder, unspecified; F32.A Depression, unspecified; I25.10 Atherosclerotic heart disease of native coronary artery without angina pectoris; J44.9 Chronic obstructive pulmonary disease, unspecified; E78.5 Hyperlipidemia, unspecified; I27.20 Pulmonary hypertension, unspecified; G89.29 Other chronic pain; I47.20 Ventricular tachycardia, unspecified; B85.2 Pediculosis, unspecified; I69.354 Hemiplegia and hemiparesis following cerebral infarction affecting left non-dominant side; Z86.14 Personal history of Methicillin resistant Staphylococcus aureus infection; Z87.440 Personal history of urinary (tract) infections; Z87.891 Personal history of nicotine dependence; Z79.01 Long term (current) use of anticoagulants; Z79.4 Long term (current) use of insulin; Z79.51 Long term (current) use of inhaled steroids; Z79.84 Long term (current) use of oral hypoglycemic drugs; Z79.899 Other long term (current) drug therapy
CPT/HCPCS: 96376 ×2; 96361; 96374; 99285; 36415; 94640 ×3; 94760; 93005; 80053; 80048; 83735 ×2; 84484; 85025 ×2; 85610; 85730; 83036; 71046; G0378 ×2; J7500 ×2; J2270 ×2